=== PATIENT | female | born 1955 | race Two or more races ===

== ENCOUNTER 2016-02-22 15:58 | Emergency (ER) | payer MEDICARE, MEDICAID ==
[2016-02-22] MEDS ORDERED: OXYCODONE-ACETAMINOPHEN 5-325 MG TABLET PO ONE (17:00)
--- NOTE | 2016-02-22 17:04 | ER Document Report ---
ED Medical Screen (RME) - General Chief Complaint: Foot Pain Stated Complaint: LEFT FOOT PAIN Mode of Arrival: Wheelchair Information source: Patient Notes: Patient presents with left foot numbness, pallor, coolness and pain. Patient states symptoms have worsened over the past 3 days. Patient states she's had previous arterial studies that did not show any abnormality in flow. Patient also reports a blister on the left foot that was not there previously. hx: Diabetes, Crohn's TRAVEL OUTSIDE OF THE [place] IN LAST 30 DAYS: No - Related Data Allergies/Adverse Reactions: Sulfa (Sulfonamide Antibiotics) Allergy (Verified 02/08/16 10:02) Past Medical History - Past Medical History Cardiac Medical History: Reports: Hx Hypertension Pulmonary Medical History: Reports: Hx Asthma Neurological Medical History: Reports: Hx Migraine Endocrine Medical History: Reports: Hx Diabetes Mellitus Type 1 GI Medical History: Reports: Hx Crohn's Disease Past Surgical History: Reports: Hx Section, Hx Orthopedic Surgery - R knee; R shoulder, Hx Tonsillectomy - Immunizations Hx Diphtheria, Pertussis, Tetanus Vaccination: Yes Physical Exam - Vital signs Vitals: Temp Pulse Resp BP Pulse Ox 98.4 F 99 16 114/68 92 02/22/16 16:17 02/22/16 16:17 02/22/16 16:17 02/22/16 16:17 02/22/16 16:17 - Extremities Foot: Tender - Pallor, coolness, 1+ dorsalis pedis pulse Course - Vital Signs Vital signs: Temp Pulse Resp BP Pulse Ox 98.4 F 99 16 114/68 92 02/22/16 16:17 02/22/16 16:17 02/22/16 16:17 02/22/16 16:17 02/22/16 16:17
[2016-02-22 18:26] LABS: PROTHROMBIN TIME 11.4 SEC (11.4-15.4)
[2016-02-22 18:27] LABS: PARTIAL THROMBOPLASTIN TIME 21.7 SEC (23.5-35.8)
[2016-02-22 18:42] LABS: ALANINE AMINOTRANSFERASE 43 U/L (9-52); ALBUMIN 3.5 g/dL (3.5-5.0); ALKALINE PHOSPHATASE 106 U/L (38-126); ANION GAP 13 (5-19); ASPARTATE AMINO TRANSFERASE 27 U/L (14-36); BILIRUBIN,TOTAL 0.4 mg/dL (0.2-1.3); BLOOD UREA NITROGEN 22 mg/dL (7-20); CALCIUM 9.2 mg/dL (8.4-10.2); CARBON DIOXIDE 34 mmol/L (22-30); CHLORIDE 90 mmol/L (98-107); CREATININE RESULT 0.68 mg/dL (0.52-1.25); GLUCOSE 89 mg/dL (75-110); POTASSIUM 3.4 mmol/L (3.6-5.0); TOTAL PROTEIN 5.5 g/dL (6.3-8.2)
[2016-02-22 19:26] LABS: HEMATOCRIT 28.7 % (36.0-47.0); HEMOGLOBIN 8.8 g/dL (12.0-15.5); HGB HCT DIFFERENCE -2.3; MEAN CORPUSCULAR HEMOGLOBIN 22.3 pg (27.0-33.4); MEAN CORPUSCULAR HGB CONC 30.6 g/dL (32.0-36.0); RED BLOOD COUNT 3.94 10^6/uL (3.72-5.28); RED CELL DISTRIBUTION WIDTH 17.3 % (11.5-14.0); WHITE BLOOD COUNT 25.4 10^3/uL (4.0-10.5)
[2016-02-22 19:44] LABS: MEAN CORPUSCULAR VOLUME 73 fl (80-97)
[2016-02-22 19:48] LABS: BASOPHILS % (MANUAL) 0 % (0-2); EOSINOPHILS % (MANUAL) 0 % (0-6); LYMPHOCYTES % (MANUAL) 7 % (13-45); TOTAL CELLS COUNTED 100
[2016-02-22 19:49] LABS: ANISOCYTOSIS 1+; HYPOCHROMASIA 2+; MICROCYTOSIS 1+
[2016-02-22 19:50] LABS: PLATELET CLUMPS PRESENT
[2016-02-22] MEDS ORDERED: ASPIRIN 325 MG TABLET PO ONE (19:53)
[2016-02-22] MEDS ORDERED: NORMAL SALINE 1000 ML 1,000 ML IV ONE (20:11)
[2016-02-22] MEDS ORDERED: HEPARIN SOD (PORCINE) 1,000 UNIT/ML 10 ML VIAL IV PRN (20:11)
[2016-02-22] MEDS ORDERED: HEPARIN SODIUM,PORCINE/D5W 250 ML IV PRN (20:11)
[2016-02-22] MEDS ORDERED: HEPARIN SOD (PORCINE) 1,000 UNIT/ML 10 ML VIAL IV ONE (20:11)
[2016-02-22] MEDS ORDERED: HYDROMORPHONE HCL INJ/PF 2 MG/ML AMPULE IV ONE ×2 (20:17→22:36)
[2016-02-22] MEDS ORDERED: ONDANSETRON HCL INJ/PF 4 MG/2 ML SDV IV ONE (20:17)
--- NOTE | 2016-02-22 21:01 | VASCULAR PRELIM REPORT ---
Provider Note Provider Note: Significant arteries compromise, left foot, unusual pattern. normal in leg, occlusion of Posterior Tibial, Dorsalis Pedis and Peroneal arteries with reconstitution through branches. Discussed with Dr Mcdowell at about 2000 hours.
[2016-02-22 23:57] VITALS: BP 132/88
--- NOTE | 2016-02-23 03:04 | ER Document Report ---
ED General - General Chief Complaint: Foot Pain Stated Complaint: LEFT FOOT PAIN Mode of Arrival: Wheelchair TRAVEL OUTSIDE OF THE [place] IN LAST 30 DAYS: No - HPI Patient complains to provider of: left foot pain Notes: Patient coming in for evaluation of left foot pain. Patient been evaluated for left foot pain multiple times. Patient has had 2 arterial duplexes with negative results. Patient has a history of cold disease states she's currently on a flare is treated with steroids and Humira. Patient states that her home medications of Dilaudid and oxycodone are not controlling her pain at this time. Patient states pain is burning. Patient also states increased swelling of her foot pain increases when patient elevates foot and also when she tries to warm her foot up with heating pads at home. Patient does have discoloration of all 5 digits of the left foot including her heel. Patient states that has been ongoing for the last 5 days. Denies any other past medical history - Related Data Allergies/Adverse Reactions: Sulfa (Sulfonamide Antibiotics) Allergy (Verified 02/08/16 10:02) Past Medical History - General Information source: Patient - Social History Smoking Status: Unknown if Ever Smoked Family History: None - Past Medical History Cardiac Medical History: Reports: Hx Hypertension Pulmonary Medical History: Reports: Hx Asthma Neurological Medical History: Reports: Hx Migraine Endocrine Medical History: Reports: Hx Diabetes Mellitus Type 1 GI Medical History: Reports: Hx Crohn's Disease Past Surgical History: Reports: Hx Section, Hx Orthopedic Surgery - R knee; R shoulder, Hx Tonsillectomy - Immunizations Hx Diphtheria, Pertussis, Tetanus Vaccination: Yes Review of Systems - Review of Systems Constitutional: No symptoms reported EENT: No symptoms reported Cardiovascular: No symptoms reported Respiratory: No symptoms reported Gastrointestinal: No symptoms reported Genitourinary: No symptoms reported Female Genitourinary: No symptoms reported Musculoskeletal: Other - Foot pain Skin: No symptoms reported Hematologic/Lymphatic: No symptoms reported Neurological/Psychological: No symptoms reported Physical Exam - Vital signs Vitals: Temp Pulse Resp BP Pulse Ox 98.4 F 99 16 114/68 92 02/22/16 16:17 02/22/16 16:17 02/22/16 16:17 02/22/16 16:17 02/22/16 16:17 Interpretation: Normal - General General appearance: Appears well, Alert - HEENT Head: Normocephalic, Atraumatic Eyes: Normal Pupils: PERRL - Respiratory Respiratory status: No respiratory distress Chest status: Nontender Breath sounds: Normal Chest palpation: Normal - Cardiovascular Rhythm: Regular Heart sounds: Normal auscultation Murmur: No - Abdominal Inspection: Normal Distension: No distension Bowel sounds: Normal Tenderness: Nontender Organomegaly: No organomegaly - Back Back: Normal, Nontender - Extremities General upper extremity: Normal inspection, Nontender, Normal color, Normal ROM , Normal temperature General lower extremity: Other - Patient's right leg unaffected. Patient does have swelling starting at the distal tibia-fibula of the left leg with a blister on the dorsum of the left foot. Patient's left toes are discolored purple with capillary refill greater than 6 seconds. It also blue discoloration of the patient's heel and now the plantar surface of her foot. A dorsalis pedis and posterior tibial are unable to be palpated.. No: Normal inspection, Nontender, Normal color, Normal ROM, Normal temperature, Normal weight bearing - Neurological Neuro grossly intact: Yes Cognition: Normal Orientation: AAOx4 Jose Alberto Coma Scale Eye Opening: Spontaneous Jose Alberto Coma Scale Verbal: Oriented Jose Alberto Coma Scale Motor: Obeys Commands [place] Coma Scale Total: 15 Speech: Normal Motor strength normal: LUE, RUE, LLE, RLE Sensory: Normal - Psychological Associated symptoms: Normal affect, Normal mood - Skin Skin Temperature: Warm Skin Moisture: Dry Skin Color: Normal Course - Re-evaluation Re-evalutation: 02/23/16 03:02 Lab work shows again a leukocytosis more likely from the patient's Crohn's flare and chronic steroid use. Patient also has a chronic anemia. Patient arterial Dopplers shows 3 vessel occlusion of the posterior anterior tibial artery and dorsalis pedis. Patient does have very minimal collateral flow from branches of the anterior and posterior tibia. Patient was started on heparin drip. Discussed with vascular surgery at [facility]. Discuss with Dr. Storey Patient was accepted in transfer. Otherwise patient was given pain control. Patient stable for transfer at time of transfer. - Vital Signs Vital signs: Temp Pulse Resp BP Pulse Ox 98.4 F 99 16 132/88 H 92 02/22/16 16:17 02/22/16 16:17 02/22/16 23:01 02/22/16 23:01 02/22/16 23:01 - Laboratory Result Diagrams: 02/22/16 18:55 02/22/16 17:47 Laboratory results interpreted by me: 02/22/16 02/22/16 02/22/16 17:47 17:47 17:47 WBC Hgb Hct MCV MCH MCHC RDW Plt Count Seg Neuts % (Manual) Lymphocytes % (Manual) Abs Neuts (Manual) Abs Monocytes (Manual) APTT 21.7 L Potassium 3.4 L Chloride 90 L Carbon Dioxide 34 H BUN 22 H Creatine Kinase 268 H Total Protein 5.5 L 02/22/16 18:55 WBC 25.4 H Hgb 8.8 L Hct 28.7 L MCV 73 L D MCH 22.3 L MCHC 30.6 L RDW 17.3 H Plt Count 528 H Seg Neuts % (Manual) 87 H Lymphocytes % (Manual) 7 L Abs Neuts (Manual) 22.1 H Abs Monocytes (Manual) 1.5 H APTT Potassium Chloride Carbon Dioxide BUN Creatine Kinase Total Protein Critical Care Note - Critical Care Note Total time excluding time spent on procedures (mins): 35 Comments: Multiple violations patient with three-vessel occlusion of her left foot Discharge - Discharge Clinical Impression: arterial occlusion left foot, ischemic left foot Condition: Fair Disposition: [facility] Referrals: WAI TIRADO DO [Primary Care Provider] - Follow up as needed
--- NOTE | 2016-02-23 09:08 | EKG REPORT ---
SEVERITY:- ABNORMAL ECG - SINUS RHYTHM CONSIDER LEFT VENTRICULAR HYPERTROPHY BORDERLINE T ABNORMALITIES, INFERIOR LEADS : Confirmed by: Jhon Ledezma 23-Feb-2016 09:07:44
--- NOTE | 2016-02-23 11:52 | XCELERA REPORT ---
[address] [address] Lower Extremity Arterial Evaluation Name: RAI VOGT Age: 60 yrs Gender: Female : 1955 Patient Status: Emergency Patient Location: ER Study Date: 02/22/2016 07:14 PM Procedure: A color flow and duplex scan of the lower extremity arteries was performed on the left with velocity and waveform anaylsis. Reason For Study: cold, pale foot Ordering Physician: COLLEEN MTZ Performed By: Dalton Guerrero Measurements and Calculations Right Left Dist AL PSV 50.9 cm/sec Dist TANK TESTER PSV 63.2 cm/sec Johan Pedis PSV -30.2 cm/sec Right Side Arterial Evaluation Triphasic waveform in the Dorsalis Pedis. VÍCTOR of 1.2. Left Side Arterial Evaluation Normal velocity, waveform and triphasic flow are present, from the Common Femoral artery down to the infrageniculate vessels. Then occlusion in Dorsalis Pedis, Peroneal artery and Posterior Tibial artery. Retrograde monophasic filling noted, distal to obstruction. The ankle-brachial index was not done. Occlusions as noted. Critical Findings As per preliminary. Interpretation Summary No hemodynamically significant lesions in the right lower extremity only, on duplex imaging, at rest. Severe hemodynamically significant lesions in the left lower extremity only, on duplex imaging, at rest. Occlusions as noted in truly remarkable distal pattern. Seems compatible with clinical findings. : COLLEEN MTZ > Frederick Pacheco
== END 2016-02-23 00:25 | disposition short-term general hospital (02) ==
LOC: ER 15:58
DX: I77.1 Stricture of artery (principal); M79.672 Pain in left foot
CPT/HCPCS: 93005; 96376; 99291; 96361; 96375; 96365; 36415; 82550; 85025; 85610; 85730; 80053; 93926 ×2; 93010; J1644; A9270; J1170; J2405; J7030

== ENCOUNTER 2016-04-18 16:37 | Inpatient (IN) | payer MEDICARE, MEDICAID ==
[2016-04-18] MEDS ORDERED: PROMETHAZINE HCL 25 MG TABLET PO ONE (17:01)
--- NOTE | 2016-04-18 17:02 | ER Document Report ---
ED Medical Screen (RME) - General Stated Complaint: NAUSEA Time seen by provider: 16:57 Mode of Arrival: Wheelchair Information source: Patient Notes: 60-year-old female presents to ED for nausea. She had a left BKA 4 weeks ago and has been nauseated ever since. She states that they sent her home from the hospital with no pain medicine after a BKA and she was already nauseated they' ve put her on Zofran on Reglan she is on amlodipine, Zantac she is on OxyContin 20, she states she would like some Phenergan. I have greeted and performed a rapid initial assessment of this patient. A comprehensive ED assessment and evaluation of the patient, analysis of test results and completion of medical decision making process will be conducted by an additional ED providers. TRAVEL OUTSIDE OF THE [place] IN LAST 30 DAYS: No - Related Data Allergies/Adverse Reactions: Sulfa (Sulfonamide Antibiotics) Allergy (Verified 02/08/16 10:02) Past Medical History - Past Medical History Cardiac Medical History: Reports: Hx Hypertension Pulmonary Medical History: Reports: Hx Asthma Neurological Medical History: Reports: Hx Migraine Endocrine Medical History: Reports: Hx Diabetes Mellitus Type 1 GI Medical History: Reports: Hx Crohn's Disease Past Surgical History: Reports: Hx Section, Hx Orthopedic Surgery - R knee; R shoulder, Hx Tonsillectomy - Immunizations Hx Diphtheria, Pertussis, Tetanus Vaccination: Yes
[2016-04-18 17:39] LABS: APPEARANCE,URINE SLIGHTLY-CLOUDY; BILIRUBIN,URINE NEGATIVE (NEGATIVE); GLUCOSE, URINE NEGATIVE (NEGATIVE); KETONES,URINE NEGATIVE (NEGATIVE); LEUKOCYTE ESTERASE,URINE LARGE (NEGATIVE); NITRITE,URINE NEGATIVE (NEGATIVE); PROTEIN,URINE NEGATIVE (NEGATIVE); URINE SPECIFIC GRAVITY 1.019; UROBILINOGEN,URINE NEGATIVE mg/dL (<2.0)
[2016-04-18 17:50] LABS: ALANINE AMINOTRANSFERASE 22 U/L (9-52); ALKALINE PHOSPHATASE 110 U/L (38-126); ANION GAP 7 (5-19); ASPARTATE AMINO TRANSFERASE 16 U/L (14-36); BILIRUBIN,TOTAL 0.4 mg/dL (0.2-1.3); BLOOD UREA NITROGEN 12 mg/dL (7-20); CALCIUM 8.9 mg/dL (8.4-10.2); CARBON DIOXIDE 31 mmol/L (22-30); CHLORIDE 97 mmol/L (98-107); CREATININE RESULT 0.61 mg/dL (0.52-1.25); GLUCOSE 78 mg/dL (75-110); LIPASE 25.8 U/L (23-300); POTASSIUM 3.7 mmol/L (3.6-5.0); SODIUM 134.5 mmol/L (137-145); TOTAL PROTEIN 5.3 g/dL (6.3-8.2)
[2016-04-18 18:55] LABS: HEMATOCRIT 16.5 % (36.0-47.0); HGB HCT DIFFERENCE -1.8; MEAN CORPUSCULAR HEMOGLOBIN 21.4 pg (27.0-33.4); MEAN CORPUSCULAR HGB CONC 29.3 g/dL (32.0-36.0); MEAN CORPUSCULAR VOLUME 73 fl (80-97); RED BLOOD COUNT 2.27 10^6/uL (3.72-5.28); RED CELL DISTRIBUTION WIDTH 20.3 % (11.5-14.0); WHITE BLOOD COUNT 9.3 10^3/uL (4.0-10.5)
[2016-04-18 19:12] LABS: BAND NEUTROPHILS % (MANUAL) 1 % (3-5); BASOPHILS % (MANUAL) 0 % (0-2); EOSINOPHILS % (MANUAL) 3 % (0-6); LYMPHOCYTES % (MANUAL) 28 % (13-45); TOTAL CELLS COUNTED 100
[2016-04-18 19:13] LABS: ANISOCYTOSIS 2+; HYPOCHROMASIA 2+; MICROCYTOSIS 2+; POIKILOCYTOSIS SLIGHT; POLYCHROMASIA SLIGHT; TEAR DROP CELLS SLIGHT
[2016-04-18 19:16] LABS: HEMOGLOBIN 4.9 g/dL (12.0-15.5)
--- NOTE | 2016-04-18 19:20 | ER Document Report ---
ED GI/ - General Chief Complaint: Nausea Stated Complaint: NAUSEA Time seen by provider: 19:15 Mode of Arrival: Wheelchair Information source: Patient TRAVEL OUTSIDE OF THE [place] IN LAST 30 DAYS: No - HPI Patient complains to provider of: Other - pt is s/p L PKA per Dr. Storey at [facility] 4 weeks ago for recurrent blood clots -- also with h/o crohn's diz -- c/o nausea and weakness since surgery. States she needed a blood transfusion post- op. - Related Data Allergies/Adverse Reactions: Sulfa (Sulfonamide Antibiotics) Allergy (Verified 04/18/16 17:03) Past Medical History - General Information source: Patient - Social History Smoking Status: Former Smoker Chew tobacco use (# tins/day): No Frequency of alcohol use: None Drug Abuse: None Family History: None Patient has suicidal ideation: No Patient has homicidal ideation: No - Past Medical History Cardiac Medical History: Reports: Hx Hypertension Pulmonary Medical History: Reports: Hx Asthma Neurological Medical History: Reports: Hx Migraine Endocrine Medical History: Reports: Hx Diabetes Mellitus Type 1 Renal/ Medical History: Denies: Hx Peritoneal Dialysis GI Medical History: Reports: Hx Crohn's Disease Past Surgical History: Reports: Hx Section, Hx Orthopedic Surgery - R knee; R shoulder, Hx Tonsillectomy - Immunizations Hx Diphtheria, Pertussis, Tetanus Vaccination: Yes Review of Systems - Review of Systems Constitutional: Weakness EENT: No symptoms reported Cardiovascular: No symptoms reported Respiratory: No symptoms reported Gastrointestinal: See HPI, Nausea -: Yes All other systems reviewed and negative Physical Exam - Vital signs Vitals: Temp Pulse Resp BP Pulse Ox 98.1 F 92 16 102/66 95 04/18/16 16:51 04/18/16 16:51 04/18/16 16:51 04/18/16 16:51 04/18/16 16:51 - General General appearance: Appears well, Alert In distress: None - looks pale - HEENT Mouth/Lips: Normal Mucous membranes: Normal Pharynx: Normal Neck: Normal - Respiratory Respiratory status: No respiratory distress Breath sounds: Normal - Cardiovascular Rhythm: Regular Heart sounds: Normal auscultation - Abdominal Inspection: Normal Distension: No distension Bowel sounds: Normal Tenderness: Nontender Organomegaly: No organomegaly - Rectal Tenderness: No Stool: See lab result Hemorrhoids: None - Extremities General lower extremity: Other - L BKA Course - Re-evaluation Re-evalutation: 04/18/16 19:39 pt's exam unchanged from prior -- will call hospitalist for admission for transfusion - Vital Signs Vital signs: Temp Pulse Resp BP Pulse Ox 98.1 F 92 16 102/66 95 04/18/16 16:51 04/18/16 16:51 04/18/16 16:51 04/18/16 16:51 04/18/16 16:51 - Laboratory Result Diagrams: 04/18/16 18:25 04/18/16 17:10 Laboratory results interpreted by me: 04/18/16 04/18/16 04/18/16 17:10 17:10 18:25 RBC 2.27 L Hgb 4.9 L* Hct 16.5 L MCV 73 L MCH 21.4 L MCHC 29.3 L RDW 20.3 H Band Neutrophils % 1 L Sodium 134.5 L Chloride 97 L Carbon Dioxide 31 H Total Protein 5.3 L Albumin 3.0 L Ur Leukocyte Esterase LARGE H - Consults jesse Ignacio Time consulted: 19:40 Consulted provider: will come to ER Critical Care Note - Critical Care Note Total time excluding time spent on procedures (mins): 30 Discharge - Discharge Clinical Impression: Severe anemia Condition: Stable Disposition: ADMITTED INPATIENT Admitting Provider: Hospitalist Unit Admitted: Telemetry
[2016-04-18] MEDS ORDERED: NORMAL SALINE 250 ML IV PRN ×2 (19:37)
[2016-04-18 20:52] LABS: PROTHROMBIN TIME 19.2 SEC (11.4-15.4)
[2016-04-18 20:53] LABS: PARTIAL THROMBOPLASTIN TIME 33.5 SEC (23.5-35.8)
[2016-04-18] MEDS ORDERED: CEFTRIAXONE INJ 1000 MG VIAL IV SCH (23:15)
[2016-04-18] MEDS ORDERED: PROMETHAZINE HCL INJ 25 MG/1 ML VIAL IV PRN (23:51)
[2016-04-19] MEDS ORDERED: PROMETHAZINE HCL INJ 25 MG/1 ML VIAL ONE ×2 (00:09→06:17)
[2016-04-19] MEDS: CEFTRIAXONE 1 GM/D5W RTU 50 ML IV SCH (01:54)
[2016-04-19] MEDS ORDERED: INSULIN LISPRO 100 UNIT/ML 3 ML VIAL SUBCUT PRN (03:10)
[2016-04-19] MEDS ORDERED: DEXTROSE 40% GEL 15 GM TUBE PO PRN ×2 (03:10)
[2016-04-19] MEDS ORDERED: DEXTROSE 50%-WATER 25 GM/50 ML DISP.SYRIN IV PRN ×2 (03:10)
[2016-04-19] MEDS ORDERED: GLUCAGON,HUMAN RECOMB 1 MG INJ IM PRN (03:10)
[2016-04-19] MEDS ORDERED: MAGNESIUM HYDROXIDE SUSP 30 ML UDCUP PO PRN (03:11)
[2016-04-19] MEDS ORDERED: IPRATROPIUM/ALBUTEROL 0.5-2.5 MG/3 ML AMPUL NEB PRN (03:11)
[2016-04-19] MEDS ORDERED: PROMETHAZINE HCL INJ 25 MG/1 ML VIAL IV PRN ×2 (03:17→10:58)
--- NOTE | 2016-04-19 03:33 | PDOC H&P ---
History of Present Illness Admission Date/PCP: 04/18/16 19:49 WAI TIRADO, GI Dr. Yen Gen surgery/Ortho Dr. Storey, [facility] Patient complains of: Nausea and weakness History of Present Illness: RAI VOGT is a 60 year old female, status post left below-knee amputation by Dr. 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 She states that since surgery, she's had persistent nausea but only rare vomiting. Generalized weakness, which is slowly progressive. She's had positive chills but no fever. No dysuria. Chronic loose stools due to her Crohn's. Last colonoscopy was approximately a year ago. No chest pain. Chronic anemia. Was transfused 3 units of blood postoperatively after her recent below-knee amputation. 2 units of packed cells ordered by emergency room physician have been transfused. States a clotting disorder is "all quite new." No family history of same. Still having some phantom limb pain. Patient has been discussed with emergency room physician who evaluated the patient. . Laboratory results are listed in everbill and are reviewed. Social history/personal habits: . Has children. Child is currently living with her. 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 No tobacco use since last December. No alcohol or illicit drug use. Allergies/adverse reactions allergies reviewed. Home medications are reviewed by discussion with patient and are to be reconciled by nursing staff in [facility]. Home medications initially autopopulated into [facility] may not accurately reflect patient's true medications, dosages, and/or frequencies. REVIEW OF SYSTEMS: Constitutional: See history and present illness. Eyes: Wears glasses. ENT: Chronic mild dysphagia, followed on a regular basis by gastroenterology. No hearing problems or complaints. Pulmonary: No current complaints. Cardiovascular: No current complaints, including chest pain. Gastrointestinal: See history and present illness. Skin: Intermittent problems with eczema. Hematologic: Easy bruising. Neurologic: No current complaints, including numbness or tingling. Musculoskeletal: Joint pain from arthritis in her hands. Phantom limb pain since her amputation. Psychiatric: Mild Anxiety depression; denies suicidal or homicidal ideation. Endocrine: No current complaints, including polyuria. Genitourinary: No current complaints, including dysuria. PHYSICAL EXAMINATION: 53.1 kg. Height is not recorded on the chart. Blood pressure 99/63. 98 and regular. 93% saturation on room air. Respirations are 12 and unlabored. Temperature 99.0. Thin chronically ill appearing slightly disheveled female who appears a bit older than her stated age. Pleasant awake alert and cooperative. Quite talkative. Somewhat anxious, although no adelia agitation. Emergency room skilled nursing facilities professional Desmond is present. Skin is warm and dry. No grossly obvious evidence of rash in areas of skin examined. No subcutaneous nodules palpated. ENT: Hearing grossly normal to normal conversation. Tongue midline on protrusion pink and slightly moist. Eyes: No scleral icterus. Pupils equal and reactive to light at 4 mm. [place] conjunctivae. Neck is supple and nontender to gentle active range of motion and palpation. Midline trachea. No palpable thyroid nodule mass enlargement or tenderness. Lymphatic: No palpable cervical or clavicular nodes. Neck and lymphatic exams limited by patient body habitus. Psychiatric: Reasonable insight into acute and chronic medical issues. Oriented to time location and why here. Lungs: Auscultation reveals clear and equal breath sounds bilaterally. No use of accessory respiratory muscles. Cardiovascular: Heart regular rate and rhythm, without gallop murmur or rub. No carotid or abdominal aortic bruits. No right ankle or pedal edema. Faintly palpable dorsalis pedis pulse. Abdomen: soft, , slightly distended nontender with positive bowel sounds. Unable to adequately evaluate abdomen for masses or organomegaly due to distention. Extremities: Right foot warm and dry. No right calf tenderness to compression. No grossly obvious visual evidence of right calf swelling. Gentle manipulation of right lower extremity fails to reveal any obvious evidence of injury or instability to knee hip or ankle. BKA incision is healing nicely, without evidence of infection. Neurologic: [Moves upper extremities grossly normally. Right patellar reflex absent. Absent Babinski. Light touch is intact at right foot. Dorsiflexion and plantarflexion of foot 5 / 5. Past Medical History Cardiac Medical History: Reports: Hypertension Denies: Congestive Heart Failure, Hyperlipidema, Pulmonary Embolism Pulmonary Medical History: Reports: Asthma Denies: Chronic Obstructive Pulmonary Disease (COPD) Neurological Medical History: Reports: Migraine, Other - TIA Denies: Hemorrhagic CVA, Ischemic CVA Endocrine Medical History: Reports: Diabetes Mellitus Type 1 Denies: Diabetes Mellitus Type 2, Hyperthyroidism, Hypothyroidism GI Medical History: Reports: Crohn's Disease, Peptic Ulcer Disease - DISTANT HISTORY Denies: Cirrhosis, Hepatitis Psychiatric Medical History: Reports: Depression, General Anxiety Disorder, Tobacco Dependency Denies: Alcohol Dependency, Substance Abuse Infectious Medical History: Denies: Hepatitis B, Hepatitis C Past Surgical History Past Surgical History: Reports: Section, Orthopedic Surgery - R knee; R shoulder, Tonsillectomy Social History Information Source: Patient, Emergency Med Personnel, [facility] Records Lives with: Family Smoking Status: Former Smoker Frequency of Alcohol Use: None Drugs: None - Advance Directive Resuscitation Status: Full Code Surrogate healthcare decision maker:: Children Family History Family History: None Parental Family History Reviewed: Yes Children Family History Reviewed: Yes Sibling(s) Family History Reviewed.: Yes Medication/Allergy Allergies/Adverse Reactions: Sulfa (Sulfonamide Antibiotics) Allergy (Verified 04/18/16 17:03) Physical Exam Vital Signs: Temp Pulse Resp BP Pulse Ox 99.0 F 92 18 106/65 98 04/19/16 00:25 04/18/16 16:51 04/19/16 02:31 04/19/16 02:31 04/19/16 02:31 Intake & Output 04/18/16 04/19/16 04/20/16 00:59 00:59 00:59 Intake Total 300 300 Balance 300 300 Weight 53.07 kg Results Laboratory Results: 04/18/16 04/18/16 04/18/16 20:20 20:20 20:20 Retic Count (auto) Absolute Retic Magnesium 1.8 Iron 10.1 L TIBC 290 % Saturation 3 Ferritin 12.70 Vitamin B12 > 1000.0 H Folate 6.30 TSH 2.03 04/18/16 20:50 Retic Count (auto) 6.03 H Absolute Retic 0.135 H Magnesium Iron TIBC % Saturation Ferritin Vitamin B12 Folate TSH Assessment & Plan - Diagnosis (1) Anticoagulated Is this a current diagnosis for this admission?: YesPlan: Due to heme positive stool and severe anemia, will hold Xarelto at this point in time. Hematology consult. (2) Clotting disorder Is this a current diagnosis for this admission?: Yes (3) Hx of BKA Qualifiers: Laterality: left Qualified Code(s): Z89.512 - Acquired absence of left leg below knee Is this a current diagnosis for this admission?: Yes (4) Severe anemia Is this a current diagnosis for this admission?: YesPlan: Basic anemia screening labs have been ordered. 2 units transfused so far. Further transfusion on a when necessary basis. I have strongly encouraged patient not to get out of bed without notifying staff , to avoid a fall with injury. Knee high SCDs for DVT prophylaxis, right lower extremity only. With heme positive stool, and patient already on Xarelto, will forego Lovenox or heparin at this point in time. Impression and plans were discussed with patient, who concurs. Time spent in evaluation and management of patient: 61 minutes. (5) UTI (urinary tract infection) Qualifiers: Urinary tract infection type: site unspecified Is this a current diagnosis for this admission?: YesPlan: Blood and urine cultures. Rocephin. (6) Crohn disease Qualifiers: Gastrointestinal tract location: unspecified location Digestive disease complication type: without complication Qualified Code(s): K50.90 - Crohn's disease, unspecified, without complications Is this a current diagnosis for this admission?: YesPlan: Outpatient follow-up. (7) HTN (hypertension) Qualifiers: Hypertension type: essential hypertension Qualified Code(s): I10 - Essential (primary) hypertension Plan: Resume home medications as appropriate once these have been reviewed. States she takes Norvasc only on a when necessary basis. (8) Diabetes mellitus type 1 Qualifiers: Diabetes mellitus complication status: without complication Qualified Code(s): E10.9 - Type 1 diabetes mellitus without complications Is this a current diagnosis for this admission?: YesPlan: Diabetic cardiac diet. Accu-Cheks with appropriate sliding scale coverage. States she uses Lantus only on a when necessary basis.
[2016-04-19] MEDS: OXYCODONE HCL IR 5 MG TABLET PO PRN (04:50)
[2016-04-19] MEDS ORDERED: ALPRAZOLAM 0.25 MG TABLET PO PRN (08:09)
--- NOTE | 2016-04-19 08:24 | PDOC CONSULTATION ---
Consultation Consult Date: 04/19/16 Attending physician:: JUDE GILMAN Consult reason:: Anemia History of Present Illness Admission Date/PCP: 04/19/16 03:12 WAI TIRADO DO Patient complains of: Fatigue, nausea, anemia History of Present Illness: 60-year-old female with known history of Crohn's disease, also recurrence iron deficiency anemia. In the past she has required IV iron. 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 Upon admission she had a very low hemoglobin in the 3 range, MCV was in the 70s, ferritin was only 12, stool culture was also positive. Reticulocyte count was elevated. She received 2 units packed red blood cells, CBC is pending now. Her last colonoscopy was over a year ago, endoscopy was also done at some point in time but she doesn't remember exactly when. Past Medical History Cardiac Medical History: Reports: Hypertension Pulmonary Medical History: Reports: Asthma Neurological Medical History: Reports: Migraine Endocrine Medical History: Reports: Diabetes Mellitus Type 1 GI Medical History: Reports: Crohn's Disease Hematology: Reports: Anemia Past Surgical History Past Surgical History: Reports: Section, Orthopedic Surgery - R knee; R shoulder, Tonsillectomy Social History Lives with: Family Smoking Status: Unknown if Ever Smoked Frequency of Alcohol Use: None Hx Recreational Drug Use: No Drugs: None Hx Prescription Drug Abuse: No - Advance Directive Resuscitation Status: Full Code Family History Family History: None Parental Family History Reviewed: Yes Children Family History Reviewed: Yes Sibling(s) Family History Reviewed.: Yes Medication/Allergy Home Medications: Alprazolam [Alprazolam Odt] 0.5 mg PO BID PRN 04/18/16 Amlodipine Besylate 5 mg PO BID 04/18/16 Metoclopramide HCl 10 mg PO QID PRN 04/18/16 Ondansetron HCl [Zofran] 4 mg PO TID PRN 04/18/16 Oxycodone HCl [Oxycontin] 20 mg PO TID 04/18/16 Ranitidine HCl 150 mg PO DAILY 04/18/16 Rivaroxaban [Xarelto 15 mg Tablet] 15 mg PO BID 04/18/16 Allergies/Adverse Reactions: Sulfa (Sulfonamide Antibiotics) Allergy (Verified 02/26/17 17:03) Review of Systems Constitutional: PRESENT: anorexia, weakness Cardiovascular: PRESENT: dyspnea on exertion Gastrointestinal: PRESENT: nausea Musculoskeletal: ABSENT: joint swelling Neurological: ABSENT: abnormal gait, abnormal speech, confusion, dizziness, focal weakness, syncope Physical Exam Vital Signs: Temp Pulse Resp BP Pulse Ox 99.5 F 97 14 99/55 L 94 04/19/16 07:31 04/19/16 05:24 04/19/16 06:31 04/19/16 06:31 04/19/16 06:31 Intake & Output 04/18/16 04/19/16 04/20/16 06:59 06:59 06:59 Weight 53.07 kg General appearance: PRESENT: no acute distress, well-developed, well-nourished Head exam: PRESENT: atraumatic, normocephalic Eye exam: PRESENT: conjunctiva pink, EOMI, PERRLA. ABSENT: scleral icterus Ear exam: PRESENT: normal external ear exam Mouth exam: PRESENT: moist, tongue midline Neck exam: ABSENT: carotid bruit, JVD, lymphadenopathy, thyromegaly Respiratory exam: PRESENT: clear to auscultation jenaro. ABSENT: rales, rhonchi, wheezes Cardiovascular exam: PRESENT: RRR. ABSENT: diastolic murmur, rubs, systolic murmur Pulses: PRESENT: normal dorsalis pedis pul Vascular exam: PRESENT: normal capillary refill GI/Abdominal exam: PRESENT: normal bowel sounds, soft. ABSENT: distended, guarding, mass, organolmegaly, rebound, tenderness Rectal exam: PRESENT: deferred Extremities exam: PRESENT: full ROM. ABSENT: calf tenderness, clubbing, pedal edema Neurological exam: PRESENT: alert, awake, oriented to person, oriented to place , oriented to time, oriented to situation, CN II-XII grossly intact. ABSENT: motor sensory deficit Psychiatric exam: PRESENT: appropriate affect, normal mood. ABSENT: homicidal ideation, suicidal ideation Skin exam: PRESENT: dry, intact, warm. ABSENT: cyanosis, rash Assessment & Plan - Diagnosis (1) Severe anemia Is this a current diagnosis for this admission?: YesPlan: Iron deficiency anemia, concern of blood loss. Colonic loss would be the most likely cause, Hemoccult is positive, need to have gastroenterology evaluation, we'll consult gastroenterology for EGD and colonoscopy. We'll give IV iron today. Follow-up hemoglobin. - Time Time Spent: 50 to 70 Minutes Critical Time spent with patient: 15-24 minutes - Inpatient Certification Based on my medical assessment, after consideration of the patient's comorbidities, presenting symptoms, or acuity I expect that the services needed warrant INPATIENT care.: Yes I certify that my determination is in accordance with my understanding of Medicare's requirements for reasonable and necessary INPATIENT services [42 CFR 412.3e].: Yes Medical Necessity: Need For Continuous Telemetry Monitoring, Need for Surgery, Risk of Complication if Not Cared For in Hospital
[2016-04-19] MEDS ORDERED: PROCHLORPERAZINE EDISYLATE INJ 10 MG/2 ML VIAL IM PRN (08:42)
[2016-04-19] MEDS ORDERED: PROCHLORPERAZINE EDISYLATE INJ 10 MG/2 ML VIAL IV PRN (09:00)
[2016-04-19] MEDS: ACETAMINOPHEN 325 MG TABLET PO PRN ×2 (09:05→20:27)
[2016-04-19 09:14] LABS: ANION GAP 7 (5-19); BLOOD UREA NITROGEN 16 mg/dL (7-20); CARBON DIOXIDE 26 mmol/L (22-30); CHLORIDE 102 mmol/L (98-107); CREATININE RESULT 0.66 mg/dL (0.52-1.25); GLUCOSE 79 mg/dL (75-110); POTASSIUM 3.4 mmol/L (3.6-5.0); SODIUM 134.7 mmol/L (137-145)
[2016-04-19 09:21] LABS: ABSOLUTE BASOPHILS # (AUTO) 0.1 10^3/uL (0.0-0.2); ABSOLUTE EOSINOPHILS # (AUTO) 0.1 10^3/uL (0.0-0.6); ABSOLUTE MONOCYTES (AUTO) 0.9 10^3/uL (0.1-1.4); ABSOLUTE NEUT (AUTO) 5.5 10^3/uL (1.7-8.2); BASOPHILS % (AUTO) 0.8 % (0-2); EOSINOPHILS % (AUTO) 1.6 % (0-6); HEMATOCRIT 22.2 % (36.0-47.0); HGB HCT DIFFERENCE -0.9; LYMPHOCYTES % (AUTO) 23.2 % (13-45); MEAN CORPUSCULAR HEMOGLOBIN 24.5 pg (27.0-33.4); MEAN CORPUSCULAR HGB CONC 32.3 g/dL (32.0-36.0); MEAN CORPUSCULAR VOLUME 76 fl (80-97); RED BLOOD COUNT 2.91 10^6/uL (3.72-5.28); RED CELL DISTRIBUTION WIDTH 22.1 % (11.5-14.0); SEGMENTED NEUTROPHILS % (AUTO) 64.4 % (42-78); WHITE BLOOD COUNT 8.5 10^3/uL (4.0-10.5)
[2016-04-19 09:26] LABS: HEMOGLOBIN 7.1 g/dL (12.0-15.5)
[2016-04-19] MEDS ORDERED: NORMAL SALINE 250 ML IV PRN ×2 (09:48)
[2016-04-19] MEDS ORDERED: FUROSEMIDE INJ/PF 20 MG/2 ML SDV IV PRN (09:48)
[2016-04-19] MEDS ORDERED: FERUMOXYTOL (NON-ESRD) 510 MG/NS 100 ML IV ONE ×2 (10:00)
--- NOTE | 2016-04-19 10:49 | PDOC PROGRESS REPORT ---
Subjective Progress Note for:: 04/19/16 Subjective:: This 60-year-old woman has a long history of Crohn's disease and a more recent history of a clotting disorder. She is status post left below the knee amputation last year and was started on Xarelto after that. She is on Humira and prednisone for the Crohn's disease. For the last 3 weeks she has had nausea. This morning that is her chief complaint. She denies abdominal pain apart from her chronic pain related to Crohn's disease. She also has a chronic degree of loose stools. Her hemoglobin was only 4.9 on admission with an MCV of 73. So far she has received 2 units of packed red blood cells and the hemoglobin is up to 7.1. She has been seen by hematology/oncology. IV iron was prescribed and is currently being administered. GI consultation has been requested. Physical Exam Vital Signs: Temp Pulse Resp BP Pulse Ox 99.5 F 97 14 99/55 L 94 04/19/16 07:31 04/19/16 05:24 04/19/16 06:31 04/19/16 06:31 04/19/16 06:31 Intake & Output 04/18/16 04/19/16 04/20/16 06:59 06:59 06:59 Weight 53.07 kg 53.07 kg General appearance: PRESENT: no acute distress, cooperative, well-developed, well-nourished Head exam: PRESENT: atraumatic, normocephalic Eye exam: PRESENT: conjunctiva pink, EOMI, PERRLA. ABSENT: scleral icterus Ear exam: PRESENT: normal external ear exam Mouth exam: PRESENT: moist, tongue midline Neck exam: ABSENT: carotid bruit, JVD, lymphadenopathy, thyromegaly Respiratory exam: PRESENT: clear to auscultation jenaro. ABSENT: rales, rhonchi, wheezes Cardiovascular exam: PRESENT: RRR. ABSENT: diastolic murmur, rubs, systolic murmur Pulses: PRESENT: normal dorsalis pedis pul Vascular exam: PRESENT: normal capillary refill GI/Abdominal exam: PRESENT: normal bowel sounds, soft, other - minimal tenderness in the lower abdomen, and mild epigastric tenderness. ABSENT: distended, guarding, mass, organolmegaly, rebound Rectal exam: PRESENT: deferred Extremities exam: PRESENT: full ROM. ABSENT: calf tenderness, clubbing, pedal edema Neurological exam: PRESENT: alert, awake, oriented to person, oriented to place , oriented to time, oriented to situation, CN II-XII grossly intact. ABSENT: motor sensory deficit Psychiatric exam: PRESENT: appropriate affect, normal mood. ABSENT: homicidal ideation, suicidal ideation Skin exam: PRESENT: dry, intact, warm. ABSENT: cyanosis, rash Results Laboratory Results: 04/19/16 08:51 04/19/16 08:51 04/19/16 04/19/16 08:51 08:51 WBC 8.5 RBC 2.91 L Hgb 7.1 L D Hct 22.2 L MCV 76 L MCH 24.5 L MCHC 32.3 RDW 22.1 H Plt Count 377 Seg Neutrophils % 64.4 Lymphocytes % 23.2 Monocytes % 10.0 Eosinophils % 1.6 Basophils % 0.8 Absolute Neutrophils 5.5 Absolute Lymphocytes 2.0 Absolute Monocytes 0.9 Absolute Eosinophils 0.1 Absolute Basophils 0.1 Sodium 134.7 L Potassium 3.4 L Chloride 102 Carbon Dioxide 26 Anion Gap 7 BUN 16 Creatinine 0.66 Est GFR ( Amer) > 60 Est GFR (Non-Af Amer) > 60 Glucose 79 Calcium 8.0 L Assessment & Plan - Diagnosis (1) Severe anemia Is this a current diagnosis for this admission?: YesPlan: Microcytic. Fecal occult blood positive. Currently receiving IV iron per hematology. Has received 2 units of packed red blood cells and will receive 1 more. Will continue to monitor hemoglobins. Gastroenterology has been consulted. (2) History of ulcer disease Is this a current diagnosis for this admission?: YesPlan: She has a distant history of either a gastric or duodenal ulcer by her account. (3) Crohn disease Qualifiers: Gastrointestinal tract location: unspecified location Digestive disease complication type: without complication Qualified Code(s): K50.90 - Crohn's disease, unspecified, without complications Is this a current diagnosis for this admission?: YesPlan: On Humira and prednisone. She has chronic symptoms that are not in flare. (4) Hx of BKA Qualifiers: Laterality: left Qualified Code(s): Z89.512 - Acquired absence of left leg below knee Is this a current diagnosis for this admission?: YesPlan: She is about 1 month status post left below the knee amputation. She was told she had a clotting disorder at that time and was started on Xarelto. With the current to severe blood loss anemia, the anticoagulant is on hold. (5) Clotting disorder Is this a current diagnosis for this admission?: YesPlan: To my knowledge, this clotting disorder has not been definitively identified. Hematology/oncology is now following. (6) UTI (urinary tract infection) Qualifiers: Urinary tract infection type: site unspecified Is this a current diagnosis for this admission?: YesPlan: Positive UA. Awaiting C&S. On empiric Rocephin. (7) HTN (hypertension) Qualifiers: Hypertension type: essential hypertension Qualified Code(s): I10 - Essential (primary) hypertension - Time Time Spent with patient: 25-34 minutes
[2016-04-19] MEDS ORDERED: PANTOPRAZOLE SODIUM 40 MG VIAL IV ONE (11:15)
[2016-04-19 12:51] LABS: PATH REVIEW PATHOLOGIST REVIEWED
[2016-04-19 17:13] LABS: ABSOLUTE BASOPHILS # (AUTO) 0.1 10^3/uL (0.0-0.2); ABSOLUTE EOSINOPHILS # (AUTO) 0.2 10^3/uL (0.0-0.6); ABSOLUTE LYMPHOCYTES (AUTO) 2.5 10^3/uL (0.5-4.7); ABSOLUTE MONOCYTES (AUTO) 0.8 10^3/uL (0.1-1.4); ABSOLUTE NEUT (AUTO) 5.8 10^3/uL (1.7-8.2); BASOPHILS % (AUTO) 0.7 % (0-2); EOSINOPHILS % (AUTO) 1.7 % (0-6); HEMATOCRIT 27.6 % (36.0-47.0); HEMOGLOBIN 8.8 g/dL (12.0-15.5); HGB HCT DIFFERENCE -1.2; LYMPHOCYTES % (AUTO) 27.2 % (13-45); MEAN CORPUSCULAR HEMOGLOBIN 25.2 pg (27.0-33.4); MEAN CORPUSCULAR HGB CONC 31.9 g/dL (32.0-36.0); MEAN CORPUSCULAR VOLUME 79 fl (80-97); MONOCYTES % (AUTO) 8.7 % (3-13); RED CELL DISTRIBUTION WIDTH 21.3 % (11.5-14.0); SEGMENTED NEUTROPHILS % (AUTO) 61.7 % (42-78); WHITE BLOOD COUNT 9.3 10^3/uL (4.0-10.5)
[2016-04-19] MEDS ORDERED: OXYCODONE HCL SR 10 MG TABLET PO ONE (19:00)
[2016-04-19] MEDS: PROMETHAZINE HCL INJ 25 MG/1 ML VIAL IV PRN (19:32)
[2016-04-19] MEDS ORDERED: BISACODYL 5 MG TABEC PO ONE (20:00)
[2016-04-19] MEDS: PANTOPRAZOLE SODIUM 40 MG VIAL IV SCH (21:49)
[2016-04-19] MEDS: OXYCODONE HCL SR 10 MG TABLET PO SCH (21:49)
[2016-04-20] MEDS: PROMETHAZINE HCL INJ 25 MG/1 ML VIAL IV PRN ×2 (00:16→05:01)
[2016-04-20] MEDS: OXYCODONE HCL SR 10 MG TABLET PO SCH ×3 (05:03→21:05)
[2016-04-20 05:10] LABS: ABSOLUTE BASOPHILS # (AUTO) 0.1 10^3/uL (0.0-0.2); ABSOLUTE EOSINOPHILS # (AUTO) 0.2 10^3/uL (0.0-0.6); ABSOLUTE LYMPHOCYTES (AUTO) 2.7 10^3/uL (0.5-4.7); ABSOLUTE NEUT (AUTO) 7.4 10^3/uL (1.7-8.2); BASOPHILS % (AUTO) 0.6 % (0-2); EOSINOPHILS % (AUTO) 1.7 % (0-6); HEMATOCRIT 28.4 % (36.0-47.0); HGB HCT DIFFERENCE -1.4; LYMPHOCYTES % (AUTO) 24.2 % (13-45); MEAN CORPUSCULAR HEMOGLOBIN 24.9 pg (27.0-33.4); MEAN CORPUSCULAR HGB CONC 31.6 g/dL (32.0-36.0); MEAN CORPUSCULAR VOLUME 79 fl (80-97); MONOCYTES % (AUTO) 8.4 % (3-13); RED BLOOD COUNT 3.61 10^6/uL (3.72-5.28); RED CELL DISTRIBUTION WIDTH 21.1 % (11.5-14.0); SEGMENTED NEUTROPHILS % (AUTO) 65.1 % (42-78); WHITE BLOOD COUNT 11.3 10^3/uL (4.0-10.5)
[2016-04-20 05:22] LABS: ANION GAP 7 (5-19); BLOOD UREA NITROGEN 12 mg/dL (7-20); CALCIUM 8.7 mg/dL (8.4-10.2); CARBON DIOXIDE 24 mmol/L (22-30); CHLORIDE 107 mmol/L (98-107); CREATININE RESULT 0.52 mg/dL (0.52-1.25); GLUCOSE 83 mg/dL (75-110); POTASSIUM 3.8 mmol/L (3.6-5.0); SODIUM 137.5 mmol/L (137-145)
[2016-04-20] MEDS ORDERED: PEG 3350/NA SULF,BICARB,CL/KCL 4000 ML PO ONE (07:00)
[2016-04-20] MEDS ORDERED: ONDANSETRON HCL INJ/PF 4 MG/2 ML SDV ONE (08:57)
[2016-04-20] MEDS: CEFTRIAXONE 1 GM/D5W RTU 50 ML IV SCH (09:30)
[2016-04-20] MEDS: PANTOPRAZOLE SODIUM 40 MG VIAL IV SCH ×2 (09:30→21:06)
[2016-04-20] MEDS ORDERED: PROMETHAZINE HCL INJ 50 MG/1 ML VIAL IM PRN (11:03)
--- NOTE | 2016-04-20 11:47 | PDOC PROGRESS REPORT ---
Subjective Progress Note for:: 04/20/16 Subjective:: Still w/ severe nausea and has not started prep for scope, tells me that golytely has worsened crohns exacerbation in past, has used mag citrate/ bisacodyl successfully in past Physical Exam Vital Signs: Temp Pulse Resp BP Pulse Ox 98.6 F 79 16 115/72 93 04/20/16 08:00 04/20/16 08:37 04/20/16 08:37 04/20/16 08:00 04/20/16 08:37 Intake & Output 04/19/16 04/20/16 04/21/16 06:59 06:59 06:59 Intake Total 507 Balance 507 Weight 53.07 kg 53.07 kg General appearance: PRESENT: no acute distress, well-developed, well-nourished Head exam: PRESENT: atraumatic, normocephalic Eye exam: PRESENT: conjunctiva pink, EOMI, PERRLA. ABSENT: scleral icterus Ear exam: PRESENT: normal external ear exam Mouth exam: PRESENT: moist, tongue midline Neck exam: ABSENT: carotid bruit, JVD, lymphadenopathy, thyromegaly Respiratory exam: PRESENT: clear to auscultation jenaro. ABSENT: rales, rhonchi, wheezes Cardiovascular exam: PRESENT: RRR. ABSENT: diastolic murmur, rubs, systolic murmur Pulses: PRESENT: normal dorsalis pedis pul Vascular exam: PRESENT: normal capillary refill GI/Abdominal exam: PRESENT: normal bowel sounds, soft. ABSENT: distended, guarding, mass, organolmegaly, rebound, tenderness Rectal exam: PRESENT: deferred Extremities exam: PRESENT: full ROM. ABSENT: calf tenderness, clubbing, pedal edema Neurological exam: PRESENT: alert, awake, oriented to person, oriented to place , oriented to time, oriented to situation, CN II-XII grossly intact. ABSENT: motor sensory deficit Psychiatric exam: PRESENT: appropriate affect, normal mood. ABSENT: homicidal ideation, suicidal ideation Skin exam: PRESENT: dry, intact, warm. ABSENT: cyanosis, rash Results Laboratory Results: 04/20/16 04:44 04/20/16 04:44 04/19/16 04/20/16 04/20/16 16:37 04:44 04:44 WBC 9.3 11.3 H RBC 3.50 L 3.61 L Hgb 8.8 L 9.0 L Hct 27.6 L 28.4 L MCV 79 L 79 L MCH 25.2 L 24.9 L MCHC 31.9 L 31.6 L RDW 21.3 H 21.1 H Plt Count 382 354 Seg Neutrophils % 61.7 65.1 Lymphocytes % 27.2 24.2 Monocytes % 8.7 8.4 Eosinophils % 1.7 1.7 Basophils % 0.7 0.6 Absolute Neutrophils 5.8 7.4 Absolute Lymphocytes 2.5 2.7 Absolute Monocytes 0.8 1.0 Absolute Eosinophils 0.2 0.2 Absolute Basophils 0.1 0.1 Sodium 137.5 Potassium 3.8 Chloride 107 Carbon Dioxide 24 Anion Gap 7 BUN 12 Creatinine 0.52 Est GFR ( Amer) > 60 Est GFR (Non-Af Amer) > 60 Glucose 83 Calcium 8.7 Assessment & Plan - Diagnosis (1) Severe anemia Is this a current diagnosis for this admission?: YesPlan: Likely GI blood losses, IV iron and tx given, hb better, monitor, scopes today hopefully. - Time Time Spent with patient: 15-24 minutes Critical Time spent with patient: 15-24 minutes Anticipated discharge: Home - Inpatient Certification Based on my medical assessment, after consideration of the patient's comorbidities, presenting symptoms, or acuity I expect that the services needed warrant INPATIENT care.: Yes I certify that my determination is in accordance with my understanding of Medicare's requirements for reasonable and necessary INPATIENT services [42 CFR 412.3e].: Yes Medical Necessity: Need for Surgery
[2016-04-20] MEDS ORDERED: BUTALB/ACETAMINOPHEN/CAFFEINE 1 TAB EACH PO PRN (14:22)
[2016-04-20] MEDS ORDERED: NALOXONE HCL INJ/PF 0.4 MG/1 ML SDV ONE (15:50)
[2016-04-20] MEDS ORDERED: PROMETHAZINE HCL INJ 25 MG/1 ML VIAL ONE (15:50)
[2016-04-20] MEDS ORDERED: FLUMAZENIL INJ 0.5 MG/5 ML VIAL IV ONE (15:51)
[2016-04-20] MEDS ORDERED: GLUCAGON,HUMAN RECOMB 1 MG INJ ONE (15:51)
[2016-04-20] MEDS ORDERED: EPINEPHRINE INJ 1 MG/10 ML DISP.SYRIN ONE (15:51)
[2016-04-20] MEDS ORDERED: FENTANYL CITRATE INJ/PF 100 MCG/2 ML AMPUL ONE (15:51)
[2016-04-20] MEDS ORDERED: FLUCONAZOLE 400 MG/NS RTU 400 MG/200 ML RTUPB IV ONE (16:00)
[2016-04-20] MEDS: MIDAZOLAM 2 MG/2 ML INJ ONE ×2 (17:14→17:20)
--- NOTE | 2016-04-20 17:14 | PDOC CONSULTATION ---
Consultation Consult Date: 04/19/16 History of Present Illness Admission Date/PCP: 04/19/16 03:12 WAI TIRADO DO History of Present Illness: This is a 60-year-old patient admitted on 04/18/2016 with nausea and weakness. On admission her hemoglobin was four and this has improved to nine after transfusion. Patient had received three units of blood transfusion within the last few weeks after her recent below knee amputation. She has a chronic history of anemia and had been receiving iron infusions for many years. Her last infusion was two years ago. She thinks her iron was low prior to her recent surgery. Her ferritin was 12 during this admission and she does have microcytosis. She recently moved here from [place] and has been seen Dr. 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 Her last EGD and colonoscopy was about a year ago and according to the patient her colonoscopy was unremarkable. Her EGD did show multiple rings in the esophagus. She had an upper GI small bowel series requested by Dr. Spain back in November 2015 and this showed a string sign in the distal terminal ileum consistent with her history of Crohn's. 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 Past Medical History Cardiac Medical History: Reports: Hypertension Denies: Congestive Heart Failure, Hyperlipidema, Pulmonary Embolism Pulmonary Medical History: Reports: Asthma Denies: Chronic Obstructive Pulmonary Disease (COPD) Neurological Medical History: Reports: Migraine, Other - TIA Denies: Hemorrhagic CVA, Ischemic CVA Endocrine Medical History: Reports: Diabetes Mellitus Type 1 Denies: Diabetes Mellitus Type 2, Hyperthyroidism, Hypothyroidism GI Medical History: Reports: Crohn's Disease, Peptic Ulcer Disease - DISTANT HISTORY Denies: Cirrhosis, Hepatitis GI History Note: Crohn's involving the small bowel Psychiatric Medical History: Reports: Depression, General Anxiety Disorder, Tobacco Dependency Denies: Alcohol Dependency, Substance Abuse Hematology: Reports: Anemia Infectious Medical History: Denies: Hepatitis B, Hepatitis C Past Surgical History Past Surgical History: Multiple EGDs and colonoscopies in the past. Past Surgical History: Reports: Section, Orthopedic Surgery - R knee; R shoulder, Tonsillectomy Social History Lives with: Family Smoking Status: Former Smoker Frequency of Alcohol Use: None Hx Recreational Drug Use: No Drugs: None Hx Prescription Drug Abuse: No - Advance Directive Resuscitation Status: Full Code Family History Family History: None Parental Family History Reviewed: No Children Family History Reviewed: NA Sibling(s) Family History Reviewed.: NA Medication/Allergy Home Medications: Adalimumab [Humira] 40 mg SQ ASDIR PRN 04/19/16 Albuterol Sulfate [Albuterol Sulfate 2.5mg/3 mL] 3 ml NEB RTTIDP PRN 04/19/16 Albuterol Sulfate [Proair HFA] 2 puff PO Q4HP PRN 04/19/16 Alprazolam [Xanax 0.25 mg Tablet] 0.25 mg PO TID 04/19/16 Amlodipine Besylate [Norvasc 5 mg Tablet] 5 mg PO Q12 04/19/16 Butalb/Acetaminophen/Caffeine [Fioricet (50-325-40 mg) Tablet] 1 tab PO Q4HP PRN 04/19/16 Fluticasone Propionate [Flonase Nasal Fate 50 Mcg/Fate 16 gm] 1 spray NASL Q12 04/19/16 Fluticasone Propionate [Flovent HFA 220 mcg MDI] 2 puff PO Q12 04/19/16 Furosemide [Lasix] 40 mg PO Q12 04/19/16 Hydromorphone HCl [Dilaudid] 4 mg PO Q4HP PRN 04/19/16 Insulin Aspart [Novolog Flexpen] 4 units SQ Q12 04/19/16 Insulin Glargine,Hum.rec.anlog [Lantus Insulin 100 Unit/mL] 20 units SQ QPM Metoclopramide HCl [Reglan] 10 mg PO QID 04/19/16 Montelukast Sodium [Singulair 10 mg Tablet] 10 mg PO QPM 04/19/16 Nebulizer [Aeroeclipse II] 1 vial NEB Q4HP PRN 04/19/16 Oxycodone HCl [Oxycontin] 20 mg PO TID 04/19/16 Oxycodone HCl/Acetaminophen [Percocet 10-325 mg Tablet] 1 tab PO Q4HP PRN Prednisone [Deltasone 10 mg Tablet] 10 mg PO TID 04/19/16 Prednisone [Deltasone 5 mg Tablet] 5 mg PO QPM 04/19/16 Ranitidine HCl [Zantac 150 mg Tablet] 150 mg PO DAILY 04/19/16 Rizatriptan Benzoate [Maxalt] 5 mg PO ASDIR PRN 04/19/16 Allergies/Adverse Reactions: Sulfa (Sulfonamide Antibiotics) Allergy (Verified 04/18/16 17:03) Review of Systems All systems: reviewed and no additional remarkable complaints except as stated Physical Exam Vital Signs: Temp Pulse Resp BP Pulse Ox 99.0 F 83 18 100/69 92 04/20/16 15:12 04/20/16 15:12 04/20/16 15:12 04/20/16 15:12 04/20/16 15:12 Intake & Output 04/19/16 04/20/16 04/21/16 06:59 06:59 06:59 Intake Total 507 Balance 507 Weight 53.07 kg 53.07 kg Results Laboratory Results: 04/20/16 04:44 04/20/16 04:44 04/19/16 04/20/16 04/20/16 16:37 04:44 04:44 WBC 9.3 11.3 H RBC 3.50 L 3.61 L Hgb 8.8 L 9.0 L Hct 27.6 L 28.4 L MCV 79 L 79 L MCH 25.2 L 24.9 L MCHC 31.9 L 31.6 L RDW 21.3 H 21.1 H Plt Count 382 354 Seg Neutrophils % 61.7 65.1 Lymphocytes % 27.2 24.2 Monocytes % 8.7 8.4 Eosinophils % 1.7 1.7 Basophils % 0.7 0.6 Absolute Neutrophils 5.8 7.4 Absolute Lymphocytes 2.5 2.7 Absolute Monocytes 0.8 1.0 Absolute Eosinophils 0.2 0.2 Absolute Basophils 0.1 0.1 Sodium 137.5 Potassium 3.8 Chloride 107 Carbon Dioxide 24 Anion Gap 7 BUN 12 Creatinine 0.52 Est GFR ( Amer) > 60 Est GFR (Non-Af Amer) > 60 Glucose 83 Calcium 8.7 Assessment & Plan - Diagnosis (1) Iron deficiency anemia due to chronic blood loss Is this a current diagnosis for this admission?: YesPlan: She has a chronic history of iron deficiency anemia which I suspect was made worse by her recent amputation. She will undergo an EGD in house and a colonoscopy as outpatient. Patient could not finish the prep in the hospital (2) Crohn's disease involving terminal ileum Is this a current diagnosis for this admission?: YesPlan: There was evidence of chronic ileitis on her small bowel series in November of last year. She has not been on treatment consistently. She had been on prednisone and Humira at various times in the past. I would hold off on any aggressive treatment at this time until after reviewing her old records. A CT enterography could be performed to further evaluate her small intestines (3) Acquired esophageal ring Is this a current diagnosis for this admission?: Yes (4) Crohn disease Qualifiers: Gastrointestinal tract location: unspecified location Digestive disease complication type: without complication Qualified Code(s): K50.90 - Crohn's disease, unspecified, without complications Is this a current diagnosis for this admission?: Yes
--- NOTE | 2016-04-20 17:36 | Operative Report ---
Operative Report DATE OF SURGERY: 04/20/16 Operative Report: Pre-op diagnosis: Iron deficiency anemia Post-op diagnosis: Diffuse esophageal rings with stenosis. Rule out eosinophilic esophagitis Surgery: Esophagogastroduodenoscopy Medications: Versed 3mg Fentanyl 100 mcg IV push Tissue removed: None Procedure: After informed consent obtained from patient, the throat was sprayed with Hurricane and conscious sedation was achieved. The upper endoscope was inserted into the esophagus under direct vision and advanced towards the stomach. There were multiple rings noted in the esophagus starting from the mid esophagus with stenoses. I was not able to pass the 10 mm endoscope easily. Patient was also not well sedated and started to get agitated so I had to stop. Findings Esophagus: Multiple rings with trachealization of the esophagus and stenosis The rest of the stomach and the duodenum were not examined. Plan: Repeat EGD at the later date with propofol. Will consider gentle dilation later on OPERATION: .
[2016-04-20] MEDS: MULTIVITAMINS W-IRON TABLET, CHEWABLE PO SCH (17:39)
[2016-04-20] MEDS ORDERED: METOCLOPRAMIDE HCL 10 MG TABLET PO SCH (18:00)
[2016-04-20] MEDS ORDERED: INSULIN GLARGINE,HUM.REC.ANLOG 300 UNIT/3 ML INSULN.PEN SUBCUT SCH (18:00)
[2016-04-20] MEDS ORDERED: MONTELUKAST SODIUM 10 MG TABLET PO SCH (18:00)
[2016-04-20] MEDS: NYSTATIN/DEXAMETH/DIPHEN SUSP 120 ML PO SCH ×2 (19:22→21:13)
[2016-04-20] MEDS: METOCLOPRAMIDE HCL 10 MG TABLET PO SCH ×2 (19:30→21:14)
[2016-04-20] MEDS: PREDNISONE 20 MG TABLET PO SCH (19:30)
--- NOTE | 2016-04-20 20:34 | PDOC PROGRESS REPORT ---
Subjective Progress Note for:: 04/20/16 Subjective:: Patient complains of abdominal pain. Patient complains of nausea. Patient continues to request IV Phenergan. Patient also requests additional oxycodone. Reports that "5 mg does nothing for her". Patient reports her BKA pain is well-controlled. Patient denies chest pain, shortness of breath, vomiting, fevers, chills, constipation, headache, new onset weakness. Physical Exam Vital Signs: Temp Pulse Resp BP Pulse Ox 99.0 F 83 18 100/69 92 04/20/16 15:12 04/20/16 15:12 04/20/16 15:12 04/20/16 15:12 04/20/16 15:12 Intake & Output 04/19/16 04/20/16 04/21/16 06:59 06:59 06:59 Intake Total 507 Balance 507 Weight 53.07 kg 53.07 kg Exam: General: Awake alert and answers questions appropriately, no acute respiratory distress HEENT: Regular chelosis, PERRL, EOMI, oropharynx reveals whitish plaque, pink, no scleral icterus, no conjunctival injection Neck: No JVD, trachea midline Chest: Clear to auscultation bilaterally, no wheezes rhonchi or rales CV: Regular rate and rhythm, normal S1 and S2, no murmur, rub, or gallop Abdomen: Soft, mildly diffusely tender to palpation, nondistended, active bowel sounds; no rebound, rigidity, or guarding Extremities: No cyanosis, clubbing or edema; left BKA Neuro: Cranial nerves II through XII are grossly intact without focal deficits Psych: Unusual mood and affect Results Laboratory Results: 04/20/16 04:44 04/20/16 04:44 04/19/16 04/20/16 04/20/16 16:37 04:44 04:44 WBC 9.3 11.3 H RBC 3.50 L 3.61 L Hgb 8.8 L 9.0 L Hct 27.6 L 28.4 L MCV 79 L 79 L MCH 25.2 L 24.9 L MCHC 31.9 L 31.6 L RDW 21.3 H 21.1 H Plt Count 382 354 Seg Neutrophils % 61.7 65.1 Lymphocytes % 27.2 24.2 Monocytes % 8.7 8.4 Eosinophils % 1.7 1.7 Basophils % 0.7 0.6 Absolute Neutrophils 5.8 7.4 Absolute Lymphocytes 2.5 2.7 Absolute Monocytes 0.8 1.0 Absolute Eosinophils 0.2 0.2 Absolute Basophils 0.1 0.1 Sodium 137.5 Potassium 3.8 Chloride 107 Carbon Dioxide 24 Anion Gap 7 BUN 12 Creatinine 0.52 Est GFR ( Amer) > 60 Est GFR (Non-Af Amer) > 60 Glucose 83 Calcium 8.7 Assessment & Plan - Diagnosis (1) Iron deficiency anemia due to chronic blood loss Is this a current diagnosis for this admission?: YesPlan: Patient has received several units of packed red blood cells. This is also likely secondary to to her Crohn's disease. appreciate hematology consultation. (2) Severe anemia Is this a current diagnosis for this admission?: YesPlan: Appreciate hematology consult. (3) UTI (urinary tract infection) Qualifiers: Urinary tract infection type: acute cystitis Hematuria presence: without hematuria Qualified Code(s): N30.00 - Acute cystitis without hematuria Is this a current diagnosis for this admission?: YesPlan: Will repeat urine culture. Patient is currently on Rocephin but grow mixture genital amanda. Patient's UA was quite suspicious for UTI. (4) Crohn disease Qualifiers: Gastrointestinal tract location: unspecified location Digestive disease complication type: without complication Qualified Code(s): K50.90 - Crohn's disease, unspecified, without complications Is this a current diagnosis for this admission?: YesPlan: Patient has history of terminal ileal Crohn's. Patient had last endoscopy 1 year ago. Patient currently is unable to complete prep. Patient reports having been on prednisone taper prior to admission taking 20 mg in the morning and 10 mg at night. Will resume 40 mg by mouth biD. 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 Patient will likely need an increase in this given addition of steroids. (7) Hx of BKA Qualifiers: Laterality: left Qualified Code(s): Z89.512 - Acquired absence of left leg below knee Is this a current diagnosis for this admission?: YesPlan: Have consulted physical therapy. Continue home pain medication. - Time Time Spent with patient: 35 or more minutes Medications reviewed and adjusted accordingly: Yes
[2016-04-20] MEDS: FLUTICASONE NASAL SPRAY 50 MCG/SPRY 120 SPRAY/16 GM NASL SCH (21:14)
[2016-04-20] MEDS: AMLODIPINE BESYLATE 5 MG TABLET PO SCH (21:14)
[2016-04-20] MEDS ORDERED: FUROSEMIDE 40 MG TABLET PO SCH (22:00)
[2016-04-20] MEDS ORDERED: HALOPERIDOL LACTATE INJ 5 MG/1 ML VIAL IV ONE (23:15)
[2016-04-20] MEDS ORDERED: HALOPERIDOL LACTATE INJ 5 MG/1 ML VIAL IV PRN (23:46)
[2016-04-21] MEDS: OXYCODONE HCL IR 5 MG TABLET PO PRN (03:54)
[2016-04-21] MEDS: OXYCODONE HCL SR 10 MG TABLET PO SCH ×2 (05:27→15:07)
[2016-04-21] MEDS: PROMETHAZINE HCL INJ 50 MG/1 ML VIAL IM PRN ×2 (09:28→15:15)
[2016-04-21] MEDS: AMLODIPINE BESYLATE 5 MG TABLET PO SCH (09:28)
[2016-04-21] MEDS: PANTOPRAZOLE SODIUM 40 MG VIAL IV SCH (09:28)
[2016-04-21] MEDS: PREDNISONE 20 MG TABLET PO SCH (09:29)
[2016-04-21] MEDS: METOCLOPRAMIDE HCL 10 MG TABLET PO SCH ×2 (09:29→15:07)
[2016-04-21] MEDS: CEFTRIAXONE 1 GM/D5W RTU 50 ML IV SCH (09:29)
[2016-04-21] MEDS: NYSTATIN/DEXAMETH/DIPHEN SUSP 120 ML PO SCH ×2 (09:33→15:08)
[2016-04-21] MEDS: FLUTICASONE NASAL SPRAY 50 MCG/SPRY 120 SPRAY/16 GM NASL SCH (09:34)
[2016-04-21] MEDS: MULTIVITAMINS W-IRON TABLET, CHEWABLE PO SCH (09:34)
[2016-04-21] MEDS ORDERED: FLUCONAZOLE 200 MG/NS RTU 100 ML IV SCH (10:00)
[2016-04-21] MEDS ORDERED: FERUMOXYTOL (NON-ESRD) 510 MG/NS 100 ML IV SCH ×2 (10:00)
--- NOTE | 2016-04-21 12:12 | PDOC PROGRESS REPORT ---
Subjective Progress Note for:: 04/21/16 Subjective:: PT got EGD but prep not completed for colonscopy, pt still w/ nausea Physical Exam Vital Signs: Temp Pulse Resp BP Pulse Ox 98.1 F 77 18 95/59 L 94 04/21/16 07:24 04/21/16 07:24 04/21/16 07:24 04/21/16 07:24 04/21/16 07:24 Intake & Output 04/20/16 04/21/16 04/22/16 06:59 06:59 06:59 Intake Total 507 4295 Output Total 1500 Balance 507 2795 Weight 53.07 kg General appearance: PRESENT: no acute distress, well-developed, well-nourished Head exam: PRESENT: atraumatic, normocephalic Eye exam: PRESENT: conjunctiva pink, EOMI, PERRLA. ABSENT: scleral icterus Ear exam: PRESENT: normal external ear exam Mouth exam: PRESENT: moist, tongue midline Neck exam: ABSENT: carotid bruit, JVD, lymphadenopathy, thyromegaly Respiratory exam: PRESENT: clear to auscultation jenaro. ABSENT: rales, rhonchi, wheezes Cardiovascular exam: PRESENT: RRR. ABSENT: diastolic murmur, rubs, systolic murmur Pulses: PRESENT: normal dorsalis pedis pul Vascular exam: PRESENT: normal capillary refill GI/Abdominal exam: PRESENT: normal bowel sounds, soft. ABSENT: distended, guarding, mass, organolmegaly, rebound, tenderness Rectal exam: PRESENT: deferred Extremities exam: PRESENT: full ROM. ABSENT: calf tenderness, clubbing, pedal edema Neurological exam: PRESENT: alert, awake, oriented to person, oriented to place , oriented to time, oriented to situation, CN II-XII grossly intact. ABSENT: motor sensory deficit Psychiatric exam: PRESENT: appropriate affect, normal mood. ABSENT: homicidal ideation, suicidal ideation Skin exam: PRESENT: dry, intact, warm. ABSENT: cyanosis, rash Results Laboratory Results: 04/20/16 04:44 04/20/16 04:44 Assessment & Plan - Diagnosis (1) Severe anemia Is this a current diagnosis for this admission?: YesPlan: hb improved, give 1 more dose IV iron today and see pt back 1 m w/ repeat imaging. Told pt and hospitalist team to hold xarelto x 1m (maybe cause of GI bleeding) until she sees me back and we will decide if clinically necessary to remain on anticoag. - Time Time Spent with patient: 25-34 minutes Critical Time spent with patient: 25-34 minutes Within: within 24 hours
[2016-04-21 13:16] VITALS: BP 108/57
--- NOTE | 2016-04-21 17:41 | PDOC DISCHARGE SUMMARY ---
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 Is this a current diagnosis for this admission?: Yes (7) Hx of BKA Is this a current diagnosis for this admission?: Yes (8) Eosinophilic esophagitis Is this a current diagnosis for this admission?: Yes (9) Crohn's disease involving terminal ileum Is this a current diagnosis for this admission?: Yes (10) Angular cheilitis with candidiasis Is this a current diagnosis for this admission?: Yes (11) Thrush, oral Is this a current diagnosis for this admission?: Yes - Additional Information Resuscitation Status: Full Code Discharge Diet: Cardiac, Diabetic Discharge Activity: Activity As Tolerated, Slowly Increase Activity Home Medications: Adalimumab [Humira] 40 mg SQ ASDIR PRN 04/19/16 Albuterol Sulfate [Albuterol Sulfate 2.5mg/3 mL] 3 ml NEB RTTIDP PRN 04/19/16 Albuterol Sulfate [Proair HFA] 2 puff PO Q4HP PRN 04/19/16 Alprazolam [Xanax 0.25 mg Tablet] 0.25 mg PO TID 04/19/16 Amlodipine Besylate [Norvasc 5 mg Tablet] 5 mg PO Q12 04/19/16 Butalb/Acetaminophen/Caffeine [Fioricet (50-325-40 mg) Tablet] 1 tab PO Q4HP PRN 04/19/16 Fluticasone Propionate [Flonase Nasal [place] 50 Mcg/[place] 16 gm] 1 spray NASL Q12 04/19/16 Fluticasone Propionate [Flovent HFA 220 mcg MDI] 2 puff PO Q12 04/19/16 Montelukast Sodium [Singulair 10 mg Tablet] 10 mg PO QPM 04/19/16 Oxycodone HCl [Oxycontin] 20 mg PO TID 04/19/16 Fluconazole [Diflucan 100 Mg Tablet] 100 mg PO DAILY #5 tablet 04/21/16 Multivitamins W-Iron [Flintstones Chewable Multivit W/Fe Tab] 2 tab PO BID #120 tab.chew 04/21/16 Nystatin/Dexameth/Diphen [Magic Mouthwash (Omh Formula) Susp] 5 ml PO QID #120 ml 04/21/16 Ondansetron HCl [Zofran 4 mg Tablet] 1 tab PO Q6HP PRN #60 tablet 04/21/16 Oxycodone HCl [Oxycontin Sr 10 mg Tablet] 20 mg PO Q8 tab.sr.12h 04/21/16 Pantoprazole Sodium [Protonix] 40 mg PO BID #60 tablet. 04/21/16 Prednisone [Deltasone 20 mg Tablet] 40 mg PO BID #28 tablet 04/21/16 Promethazine HCl [Phenergan 25 mg Supp.rect] 1 supp HI Q6HP PRN #12 supp.rect Promethazine HCl [Phenergan 25 mg Tablet] 25 mg PO Q4HP PRN #30 tablet 04/21/16 History of Present Illness History of Present Illness: Please see H&P for full history of present illness Hospital Course Hospital Course: Patient was transfused a total of 3 units of packed red blood cells with an appropriate response in her hemoglobin from 4.9-9.0. Patient also underwent upper endoscopy which revealed possible eosinophilic esophagitis. Hematology was consulted for her anemia and patient is found to be profoundly iron deficient and was given IV iron. Patient was unable to complete prep for lower endoscopy. At this time, hematology recommends holding Xarelto until she is able to follow with them. They did not recommend a ultrasound at this time of her lower extremity. I discussed the possibility of in-house endoscopy with Dr. Pepper from GI and he reports he will do her as an outpatient. At this time did not recommend topical steroids for treatment of her eosinophilic esophagitis. Will place patient on PPI twice a day and will follow-up with GI. I did discuss the importance of following up with GI to the patient. I also discussed with her the importance of following up with hematology, Dr. Davide Long , for her clotting issues and anemia. Patient is doing well and stable for discharge. Physical Exam Vital Signs: Temp Pulse Resp BP Pulse Ox 98.1 F 77 18 108/57 L 96 04/21/16 12:55 04/21/16 12:55 04/21/16 12:55 04/21/16 12:55 04/21/16 12:55 Intake & Output 04/20/16 04/21/16 04/22/16 06:59 06:59 06:59 Intake Total 507 4295 Output Total 1500 Balance 507 2795 Weight 53.07 kg Exam: General: Awake alert and answers questions appropriately, no acute respiratory distress HEENT: Regular chelitis, PERRL, EOMI, oropharynx reveals whitish plaque, pink, no scleral icterus, no conjunctival injection Neck: No JVD, trachea midline Chest: Clear to auscultation bilaterally, no wheezes rhonchi or rales CV: Regular rate and rhythm, normal S1 and S2, no murmur, rub, or gallop Abdomen: Soft, mildly diffusely tender to palpation, nondistended, active bowel sounds; no rebound, rigidity, or guarding Extremities: No cyanosis, clubbing or edema; left BKA Neuro: Cranial nerves II through XII are grossly intact without focal deficits Psych: Unusual mood and affect Results Laboratory Results: 04/20/16 04:44 04/20/16 04:44 Qualifiers PATEINT BEING DISCHARGED WITH ANY OF THE FOLLOWING DIAGNOSIS?: No Plan Time Spent: Greater than 30 Minutes
[2016-04-21] MEDS ORDERED: INFLUENZA ADLT QUAD (36MOS+) 2016-17 VAC 0.5 ML SYR IM PRN (17:47)
== END 2016-04-21 18:20 | disposition home or self-care (01) | DRG 812 ==
LOC: ER 16:37 → UNDOADMIN 19:49 → EH 19:49 → 3N 04-19 17:10
PROVIDERS: ADMIT Family Medicine; ATTEND Family Medicine
PROC: 30233N1 Transfusion of Nonautologous Red Blood Cells into Peripheral Vein, Percutaneous Approach (ICD-10-PCS; principal; 2016-04-19)
PROC: 0DJ08ZZ Inspection of Upper Intestinal Tract, Via Natural or Artificial Opening Endoscopic (ICD-10-PCS; 2016-04-20)
PROC: 3E0F73Z Introduction of Anti-inflammatory into Respiratory Tract, Via Natural or Artificial Opening (ICD-10-PCS; 2016-04-21)
PROC: 3E0234Z Introduction of Serum, Toxoid and Vaccine into Muscle, Percutaneous Approach (ICD-10-PCS; 2016-04-21)
DX: D50.0 Iron deficiency anemia secondary to blood loss (chronic) (principal); N30.00 Acute cystitis without hematuria; K50.00 Crohn's disease of small intestine without complications; B37.83 Candidal cheilitis; B37.0 Candidal stomatitis; I10 Essential (primary) hypertension; K20.0 Eosinophilic esophagitis; F32.9 Major depressive disorder, single episode, unspecified; J45.909 Unspecified asthma, uncomplicated; F41.1 Generalized anxiety disorder; K22.2 Esophageal obstruction; L30.9 Dermatitis, unspecified; E10.69 Type 1 diabetes mellitus with other specified complication; I70.209 Unspecified atherosclerosis of native arteries of extremities, unspecified extremity; Z79.899 Other long term (current) drug therapy; Z89.519 Acquired absence of unspecified leg below knee; Z23 Encounter for immunization; Z87.11 Personal history of peptic ulcer disease; Z87.891 Personal history of nicotine dependence; Z88.2 Allergy status to sulfonamides; Z89.512 Acquired absence of left leg below knee; Z86.73 Personal history of transient ischemic attack (TIA), and cerebral infarction without residual deficits
CPT/HCPCS: 36415; 36430; 43235; 80048; 80053; 81001; 82272; 82607; 82728; 82746; 82962; 83540; 83550; 83690; 83735; 84443; 84466; 85025; 85045; 85610; 85730; 86850; 86900; 86901; 86920; 87040; 87086; 90686; 99291; J0171; J0696; J0780; J1610; J2250; J2310; J2405; J2550; J3010; J3490; J7512; P9016; Q0138; S0164

== ENCOUNTER 2016-05-04 04:32 | Inpatient (IN) | payer MEDICARE, MEDICAID ==
[2016-05-04 05:32] LABS: ALANINE AMINOTRANSFERASE 28 U/L (9-52); ALBUMIN 3.2 g/dL (3.5-5.0); ALKALINE PHOSPHATASE 166 U/L (38-126); ANION GAP 8 (5-19); ASPARTATE AMINO TRANSFERASE 19 U/L (14-36); BILIRUBIN,TOTAL 0.4 mg/dL (0.2-1.3); BLOOD UREA NITROGEN 12 mg/dL (7-20); CALCIUM 9.5 mg/dL (8.4-10.2); CARBON DIOXIDE 29 mmol/L (22-30); CHLORIDE 101 mmol/L (98-107); GLUCOSE 72 mg/dL (75-110); LIPASE 51.6 U/L (23-300); POTASSIUM 3.1 mmol/L (3.6-5.0); SODIUM 137.9 mmol/L (137-145); TOTAL PROTEIN 5.7 g/dL (6.3-8.2)
[2016-05-04 05:34] LABS: APPEARANCE,URINE CLEAR; BILIRUBIN,URINE NEGATIVE (NEGATIVE); GLUCOSE, URINE NEGATIVE (NEGATIVE); KETONES,URINE NEGATIVE (NEGATIVE); LEUKOCYTE ESTERASE,URINE TRACE (NEGATIVE); NITRITE,URINE NEGATIVE (NEGATIVE); PROTEIN,URINE NEGATIVE (NEGATIVE); URINE SPECIFIC GRAVITY 1.012; UROBILINOGEN,URINE NEGATIVE mg/dL (<2.0)
[2016-05-04 06:00] LABS: ABSOLUTE BASOPHILS # (AUTO) 0.1 10^3/uL (0.0-0.2); ABSOLUTE EOSINOPHILS # (AUTO) 0.1 10^3/uL (0.0-0.6); ABSOLUTE LYMPHOCYTES (AUTO) 2.7 10^3/uL (0.5-4.7); ABSOLUTE MONOCYTES (AUTO) 1.3 10^3/uL (0.1-1.4); ABSOLUTE NEUT (AUTO) 13.7 10^3/uL (1.7-8.2); BASOPHILS % (AUTO) 0.5 % (0-2); EOSINOPHILS % (AUTO) 0.7 % (0-6); HEMATOCRIT 34.2 % (36.0-47.0); HEMOGLOBIN 10.8 g/dL (12.0-15.5); HGB HCT DIFFERENCE -1.8; LYMPHOCYTES % (AUTO) 15.2 % (13-45); MEAN CORPUSCULAR HGB CONC 31.7 g/dL (32.0-36.0); MONOCYTES % (AUTO) 7.3 % (3-13); RED BLOOD COUNT 4.01 10^6/uL (3.72-5.28); RED CELL DISTRIBUTION WIDTH 25.2 % (11.5-14.0); SEGMENTED NEUTROPHILS % (AUTO) 76.3 % (42-78)
--- NOTE | 2016-05-04 06:22 | ER Document Report ---
ED General - General Chief Complaint: Abdominal Pain Stated Complaint: ABDOMINAL PAIN Time seen by provider: 06:18 Mode of Arrival: Ambulatory Information source: Patient Notes: 60-year-old female presents with 2 day history of diffuse abdominal pain and cramping along with nausea typical 40s had a past with Crohn's disease. She thinks her last exacerbation this bad was several months ago. She reports following Dr. Yen for this locally. She also had a recent admission with GI bleed thought secondary to Xarelto she is on no anticoagulation. She reports diarrhea for the past 2 days thinks she might of had some blood in it but denies melena. She also states she thinks she has urinary tract infection and reports 3 days of urinary urgency frequency and urinary incontinence. She reports temperature she thinks about 100.2 at home yesterday. He reports occasional nonproductive cough but denies shortness breath, chest pain, or back pain. He is status post recent left BKA in [place] and reports no recent problems with her surgical site. Physical Exam: General: Alert, appears uncomfortable HEENT: Normocephalic. Atraumatic. PERRLA. Extraocular movements intact. Oropharynx clear. Neck: Supple. Non-tender. Respiratory: No respiratory distress. Clear and equal breath sounds bilaterally. Cardiovascular: Regular rate and rhythm. Abdominal: Abdomen mildly distended few faint bowel sounds. Moderate tenderness in all 4 quadrants with trace voluntary guarding no rebound rigidity Back: Non-tender. No deformity or step off. Upper extremities warm with 2+ pulses of cyanosis no edema Left lower extremity BKA dressing clean and dry Right lower extremity with 2+ assessed pedis posterior tibial pulses no Homans sign Neurological: Speech clear mentation normal research clerk strength 5 out of 5 equal both upper extremities Psychological: Normal affect. Normal Mood. Skin: Warm. Dry. Normal color. TRAVEL OUTSIDE OF THE [place] IN LAST 30 DAYS: No - Related Data Allergies/Adverse Reactions: Sulfa (Sulfonamide Antibiotics) Allergy (Verified 05/04/16 04:41) Past Medical History - Social History Smoking Status: Current Every Day Smoker Frequency of alcohol use: Occasional Drug Abuse: None Family History: None Patient has suicidal ideation: No Patient has homicidal ideation: No - Past Medical History Cardiac Medical History: Reports: Hx Hypertension Denies: Hx Congestive Heart Failure, Hx Hypercholesterolemia, Hx Pulmonary Embolism Pulmonary Medical History: Reports: Hx Asthma Denies: Hx COPD Neurological Medical History: Reports: Hx Migraine. Denies: Hx Seizures Endocrine Medical History: Reports: Hx Diabetes Mellitus Type 1. Denies: Hx Diabetes Mellitus Type 2, Hx Hyperthyroidism, Hx Hypothyroidism Renal/ Medical History: Denies: Hx Peritoneal Dialysis GI Medical History: Reports: Hx Crohn's Disease. Denies: Hx Cirrhosis, Hx Hepatitis Psychiatric Medical History: Reports: Hx Depression Infectious Medical History: Denies: Hx Hepatitis Past Surgical History: Reports: Hx Section, Hx Orthopedic Surgery - R knee; R shoulder, Hx Tonsillectomy. Denies: Hx Hysterectomy - Immunizations Hx Diphtheria, Pertussis, Tetanus Vaccination: Yes Review of Systems - Review of Systems Constitutional: denies: Chills EENT: denies: Ear pain, Throat pain Cardiovascular: See HPI Respiratory: See HPI Gastrointestinal: See HPI Genitourinary: See HPI Female Genitourinary: denies: Post menopausal Musculoskeletal: denies: Back pain, Leg swelling Hematologic/Lymphatic: denies: Swollen glands Neurological/Psychological: denies: Weakness, Numbness Physical Exam - Vital signs Vitals: Temp Pulse Resp BP Pulse Ox 97.4 F 84 18 144/78 H 93 05/04/16 04:45 05/04/16 04:45 05/04/16 04:45 05/04/16 04:45 05/04/16 04:45 Course - Re-evaluation Re-evalutation: 05/04/16 09:40 Reevaluation after IV fluids and medication for pain and nauseousness his abdomen to continue to be distended with moderate tenderness in all quadrants but no rebound or rigidity. Patient reports that in the past when her symptoms have been this bad she's required admission. She reports that sometimes with the symptoms she's required NG tube which she was told off this time unless her nausea returns. I think her CT findings are consistent with partial bowel structure related to Crohn's disease and not evidence of a surgical emergency. I discussed the case with Dr. williamson of the hospitalist service who will be coming to see patient - Vital Signs Vital signs: Temp Pulse Resp BP Pulse Ox 97.4 F 84 18 144/78 H 93 05/04/16 04:45 05/04/16 04:45 05/04/16 04:45 05/04/16 04:45 05/04/16 04:45 - Laboratory Result Diagrams: 05/04/16 05:45 05/04/16 05:11 Laboratory results interpreted by me: 05/04/16 05/04/16 05/04/16 05:11 05:18 05:45 WBC 18.0 H Hgb 10.8 L Hct 34.2 L MCHC 31.7 L RDW 25.2 H Absolute Neutrophils 13.7 H Potassium 3.1 L Creatinine 0.50 L Glucose 72 L Alkaline Phosphatase 166 H Total Protein 5.7 L Albumin 3.2 L Urine Blood MODERATE H Ur Leukocyte Esterase TRACE H - Diagnostic Test Radiology reviewed: Image reviewed, Reports reviewed - EKG Interpretation by Me Additional EKG results interpreted by me: 05/04/16 09:39 EKG reviewed by myself sinus rhythm at [address] changes no significant change compared to 02/22/2016 Discharge - Discharge Clinical Impression: Crohn's disease Qualifiers: Gastrointestinal tract location: unspecified location Digestive disease complication type: without complication Qualified Code(s): K50.90 - Crohn's disease, unspecified, without complications Abdominal pain Qualifiers: Abdominal location: generalized Qualified Code(s): R10.84 - Generalized abdominal pain Condition: Fair Disposition: ADMITTED INPATIENT Admitting Provider: Hospitalist Unit Admitted: Medical Floor
[2016-05-04 06:23] LABS: MEAN CORPUSCULAR VOLUME 85 fl (80-97)
[2016-05-04] MEDS ORDERED: PROMETHAZINE HCL INJ 25 MG/1 ML VIAL IV ONE (06:25)
[2016-05-04] MEDS ORDERED: MORPHINE SULFATE 10 MG/ML INJ IV ONE (06:25)
[2016-05-04] MEDS ORDERED: NORMAL SALINE 1000 ML 1,000 ML IV ONE (06:25)
[2016-05-04] MEDS ORDERED: POTASSI CL 20 MEQ/NS 1L 1,000 ML IV ONE ×2 (06:26→11:29)
[2016-05-04 06:30] LABS: ANISOCYTOSIS 3+; HYPOCHROMASIA SLIGHT; OVALOCYTES SLIGHT; POIKILOCYTOSIS SLIGHT; POLYCHROMASIA SLIGHT; TEAR DROP CELLS SLIGHT; TOXIC GRANULATION SLIGHT; TOXIC VACUOLATION PRESENT
[2016-05-04] MEDS ORDERED: PROMETHAZINE HCL INJ 25 MG/1 ML VIAL ONE (06:56)
[2016-05-04] MEDS ORDERED: HYDROMORPHONE HCL INJ/PF 2 MG/ML AMPULE IV ONE (11:20)
--- NOTE | 2016-05-04 12:00 | PDOC H&P ---
History of Present Illness Admission Date/PCP: 05/04/16 10:32 WAI TIRADO DO Patient complains of: Abdominal pain nausea and vomiting History of Present Illness: RAI VGOT is a 60 year old female presents with 2 day history of diffuse abdominal pain and cramping along with nausea typical 40s had a past with Crohn's disease. She thinks her last exacerbation this bad was several months ago. She reports following Dr. Yen for this locally. She also had a recent admission with GI bleed thought secondary to Xarelto she is on no anticoagulation. She reports diarrhea for the past 2 days thinks she might of had some blood in it but denies melena. She also states she thinks she has urinary tract infection and reports 3 days of urinary urgency frequency and urinary incontinence. She reports temperature she thinks about 100.2 at home yesterday. He reports occasional nonproductive cough but denies shortness breath, chest pain, or back pain. He is status post recent left BKA in [place] and reports no recent problems with her surgical site. Upon evaluation in the ED patient was found to have been extremely tender abdomen; A CT abdomen and pelvis suggestive of partial small bowel obstruction The white blood count was 18,000 Patient was subsequently admitted under hospitalist service for further evaluation and care Cipro Flagyl methylprednisolone were initiated PICC line to be inserted A GI consult was called for Dr. Pepper Past Medical History Cardiac Medical History: Reports: Hypertension Denies: Congestive Heart Failure, Hyperlipidema, Pulmonary Embolism Pulmonary Medical History: Reports: Asthma Denies: Chronic Obstructive Pulmonary Disease (COPD) Neurological Medical History: Reports: Migraine Denies: Seizures Endocrine Medical History: Reports: Diabetes Mellitus Type 1 Denies: Diabetes Mellitus Type 2, Hyperthyroidism, Hypothyroidism GI Medical History: Reports: Crohn's Disease Denies: Cirrhosis, Hepatitis Psychiatric Medical History: Reports: Depression Hematology: Reports: Anemia Past Surgical History Past Surgical History: Reports: Section, Orthopedic Surgery - R knee; R shoulder, Tonsillectomy Denies: Hysterectomy Social History Smoking Status: Current Every Day Smoker Frequency of Alcohol Use: None Hx Recreational Drug Use: No Drugs: None Hx Prescription Drug Abuse: No - Advance Directive Resuscitation Status: Full Code Surrogate healthcare decision maker:: Her daughter Natasha Family History Family History: None, Reviewed & Not Pertinent Parental Family History Reviewed: Yes Children Family History Reviewed: Yes Sibling(s) Family History Reviewed.: Yes Medication/Allergy Home Medications: Adalimumab [Humira] 40 mg SQ ASDIR PRN 04/19/16 Albuterol Sulfate [Albuterol Sulfate 2.5mg/3 mL] 3 ml NEB RTTIDP PRN 04/19/16 Albuterol Sulfate [Proair HFA] 2 puff PO Q4HP PRN 04/19/16 Alprazolam [Xanax 0.25 mg Tablet] 0.25 mg PO TID 04/19/16 Amlodipine Besylate [Norvasc 5 mg Tablet] 5 mg PO Q12 04/19/16 Butalb/Acetaminophen/Caffeine [Fioricet (50-325-40 mg) Tablet] 1 tab PO Q4HP PRN 04/19/16 Fluticasone Propionate [Flonase Nasal [place] 50 Mcg/[place] 16 gm] 1 spray NASL Q12 04/19/16 Fluticasone Propionate [Flovent HFA 220 mcg MDI] 2 puff PO Q12 04/19/16 Montelukast Sodium [Singulair 10 mg Tablet] 10 mg PO QPM 04/19/16 Oxycodone HCl [Oxycontin] 20 mg PO TID 04/19/16 Fluconazole [Diflucan 100 Mg Tablet] 100 mg PO DAILY #5 tablet 04/21/16 Multivitamins W-Iron [Flintstones Chewable Multivit W/Fe Tab] 2 tab PO BID #120 tab.chew 04/21/16 Nystatin/Dexameth/Diphen [Magic Mouthwash (Omh Formula) Susp] 5 ml PO QID #120 ml 04/21/16 Ondansetron HCl [Zofran 4 mg Tablet] 1 tab PO Q6HP PRN #60 tablet 04/21/16 Oxycodone HCl [Oxycontin Sr 10 mg Tablet] 20 mg PO Q8 tab.sr.12h 04/21/16 Pantoprazole Sodium [Protonix] 40 mg PO BID #60 tablet. 04/21/16 Prednisone [Deltasone 20 mg Tablet] 40 mg PO BID #28 tablet 04/21/16 Promethazine HCl [Phenergan 25 mg Supp.rect] 1 supp RI Q6HP PRN #12 supp.rect Promethazine HCl [Phenergan 25 mg Tablet] 25 mg PO Q4HP PRN #30 tablet 04/21/16 Allergies/Adverse Reactions: Sulfa (Sulfonamide Antibiotics) Allergy (Verified 05/04/16 04:41) Review of Systems Constitutional: PRESENT: fever(s). ABSENT: chills, headache(s), weight gain, weight loss Eyes: ABSENT: visual disturbances Ears: ABSENT: hearing changes Cardiovascular: ABSENT: chest pain, dyspnea on exertion, edema, orthropnea, palpitations Respiratory: ABSENT: cough, hemoptysis Gastrointestinal: PRESENT: abdominal pain, nausea, vomiting. ABSENT: constipation, diarrhea, hematemesis, hematochezia Genitourinary: ABSENT: dysuria, hematuria Musculoskeletal: ABSENT: joint swelling Integumentary: ABSENT: rash, wounds Neurological: ABSENT: abnormal gait, abnormal speech, confusion, dizziness, focal weakness, syncope Psychiatric: ABSENT: anxiety, depression, homidical ideation, suicidal ideation Endocrine: ABSENT: cold intolerance, heat intolerance, polydipsia, polyuria Hematologic/Lymphatic: ABSENT: easy bleeding, easy bruising Physical Exam Vital Signs: Temp Pulse Resp BP Pulse Ox 97.4 F 84 18 144/78 H 93 05/04/16 04:45 05/04/16 04:45 05/04/16 04:45 05/04/16 04:45 05/04/16 04:45 General appearance: PRESENT: mild distress, thin Head exam: PRESENT: atraumatic, normocephalic Eye exam: PRESENT: conjunctiva pink, EOMI, PERRLA. ABSENT: scleral icterus Neck exam: ABSENT: carotid bruit, JVD, lymphadenopathy, thyromegaly Respiratory exam: PRESENT: clear to auscultation jenaro. ABSENT: rales, rhonchi, wheezes Cardiovascular exam: PRESENT: RRR. ABSENT: diastolic murmur, rubs, systolic murmur Pulses: PRESENT: normal dorsalis pedis pul GI/Abdominal exam: PRESENT: guarding - diffuse, tenderness Rectal exam: PRESENT: deferred Neurological exam: PRESENT: alert, awake, oriented to person, oriented to place , oriented to time, oriented to situation, CN II-XII grossly intact. ABSENT: motor sensory deficit Psychiatric exam: PRESENT: appropriate affect, normal mood. ABSENT: homicidal ideation, suicidal ideation Skin exam: PRESENT: dry, intact, warm. ABSENT: cyanosis, rash Results Laboratory Results: Labs- Entire Visit 05/04/16 05/04/16 05/04/16 05:11 05:11 05:11 WBC Cancelled RBC Cancelled Hgb Cancelled Hct Cancelled MCV Cancelled MCH Cancelled MCHC Cancelled RDW Cancelled Plt Count Cancelled Seg Neutrophils % Cancelled Lymphocytes % Cancelled Monocytes % Cancelled Eosinophils % Cancelled Basophils % Cancelled Absolute Neutrophils Cancelled Absolute Lymphocytes Cancelled Absolute Monocytes Cancelled Absolute Eosinophils Cancelled Absolute Basophils Cancelled Toxic Granulation Toxic Vacuolation Platelet Estimate Cancelled Platelet Comment Polychromasia Hypochromasia Poikilocytosis Basophilic Stippling Anisocytosis Tear Drop Cells Ovalocytes Sodium 137.9 Potassium 3.1 L Chloride 101 Carbon Dioxide 29 Anion Gap 8 BUN 12 Creatinine 0.50 L Est GFR ( Amer) > 60 Est GFR (Non-Af Amer) > 60 Glucose 72 L Calcium 9.5 Magnesium 1.7 Total Bilirubin 0.4 Direct Bilirubin 0.0 AST 19 ALT 28 Alkaline Phosphatase 166 H Total Protein 5.7 L Albumin 3.2 L Lipase 51.6 Urine Color Urine Appearance Urine pH Ur Specific [place] Urine Protein Urine Glucose (UA) Urine Ketones Urine Blood Urine Nitrite Urine Bilirubin Urine Urobilinogen Ur Leukocyte Esterase Urine WBC (Auto) Urine RBC (Auto) Urine Bacteria (Auto) Squamous Epi Cells Auto Urine Ascorbic Acid Slides for Path Review Cancelled 05/04/16 05/04/16 05:18 05:45 WBC 18.0 H RBC 4.01 Hgb 10.8 L Hct 34.2 L MCV 85 D MCH 27.0 MCHC 31.7 L RDW 25.2 H Plt Count 343 Seg Neutrophils % 76.3 Lymphocytes % 15.2 Monocytes % 7.3 Eosinophils % 0.7 Basophils % 0.5 Absolute Neutrophils 13.7 H Absolute Lymphocytes 2.7 Absolute Monocytes 1.3 Absolute Eosinophils 0.1 Absolute Basophils 0.1 Toxic Granulation SLIGHT Toxic Vacuolation PRESENT Platelet Estimate Platelet Comment ADEQUATE Polychromasia SLIGHT Hypochromasia SLIGHT Poikilocytosis SLIGHT Basophilic Stippling PRESENT Anisocytosis 3+ Tear Drop Cells SLIGHT Ovalocytes SLIGHT Sodium Potassium Chloride Carbon Dioxide Anion Gap BUN Creatinine Est GFR ( Amer) Est GFR (Non-Af Amer) Glucose Calcium Magnesium Total Bilirubin Direct Bilirubin AST ALT Alkaline Phosphatase Total Protein Albumin Lipase Urine Color YELLOW Urine Appearance CLEAR Urine pH 6.0 Ur Specific [place] 1.012 Urine Protein NEGATIVE Urine Glucose (UA) NEGATIVE Urine Ketones NEGATIVE Urine Blood MODERATE H Urine Nitrite NEGATIVE Urine Bilirubin NEGATIVE Urine Urobilinogen NEGATIVE Ur Leukocyte Esterase TRACE H Urine WBC (Auto) 7 Urine RBC (Auto) 2 Urine Bacteria (Auto) TRACE Squamous Epi Cells Auto 2 Urine Ascorbic Acid NEGATIVE Slides for Path Review EKG Comments: SINUS RHYTHM Impressions: Abdomen/Pelvis CT 05/04/16 06:23 IMPRESSION: Abnormal distal ileum with alternating strictures and saccular dilatation from inflammatory bowel disease. This is similar compared to small bowel follow-through 11/24/2015 Fluid-filled distended proximal and mid ileum from partial obstruction. Assessment & Plan - Diagnosis (1) Partial small bowel obstruction Is this a current diagnosis for this admission?: YesPlan: The case was discussed with Dr. Pepper We will treat the patient with Cipro Flagyl methylprednisolone Patient will be nothing by mouth just ice chips We have to follow the patient clinically very closely Patient's condition worsens surgical consult will be obtained Patient may become a candidate for small bowel resection (2) Abdominal pain Qualifiers: Abdominal location: generalized Qualified Code(s): R10.84 - Generalized abdominal pain Is this a current diagnosis for this admission?: Yes (3) Crohns disease Qualifiers: Gastrointestinal tract location: unspecified location Digestive disease complication type: unspecified complication Qualified Code(s): K50.919 - Crohn's disease, unspecified, with unspecified complications Is this a current diagnosis for this admission?: YesPlan: Partial small bowel obstruction; management as above (4) Difficult intravenous access Is this a current diagnosis for this admission?: YesPlan: PICC line will be inserted - Time Time Spent: 50 to 70 Minutes Disposition: Admit as inpatient to medical unit GI consult Surgical consult if patient does not improve - Inpatient Certification Based on my medical assessment, after consideration of the patient's comorbidities, presenting symptoms, or acuity I expect that the services needed warrant INPATIENT care.: Yes I certify that my determination is in accordance with my understanding of Medicare's requirements for reasonable and necessary INPATIENT services [42 CFR 412.3e].: Yes Medical Necessity: Need for Pain Control, Need for IV Antibiotics
[2016-05-04] MEDS ORDERED: POTASSI CL 20 MEQ/50 ML RIDER 50 ML IV SCH (13:00)
[2016-05-04] MEDS ORDERED: CIPROFLOXACIN 400 MG/D5W RTU 400 MG/200 ML RTUPB IV ONE (13:00)
[2016-05-04] MEDS: HYDROMORPHONE HCL INJ/PF 2 MG/ML AMPULE IV PRN ×4 (14:07→23:29)
--- NOTE | 2016-05-04 17:15 | EKG REPORT ---
SEVERITY:- NORMAL ECG - SINUS RHYTHM : Confirmed by: Naa Douglas MD 04-May-2016 17:13:59
[2016-05-04] MEDS: METHYLPREDNISOLONE INJ 125 MG/2 ML SDV IV SCH ×2 (17:20→21:23)
[2016-05-04] MEDS: METRONIDAZOLE 500 MG/NS RTU 100 ML IV SCH ×2 (17:30→20:16)
[2016-05-04] MEDS ORDERED: ALBUTEROL SULFATE 0.083% NEB 2.5 MG/3 ML AMPUL NEB PRN (17:53)
[2016-05-04] MEDS ORDERED: ONDANSETRON 4 MG TAB.RAPDIS PO PRN (17:58)
--- NOTE | 2016-05-04 19:29 | PDOC CONSULTATION ---
Consultation Consult Date: 05/04/16 History of Present Illness Admission Date/PCP: 05/04/16 11:26 WAI TIRADO DO History of Present Illness: This is a 60-year-old patient who was admitted to the emergency room with abdominal pain, vomiting, and diarrhea. She was discharged from the hospital about two weeks ago and had been doing very well until two days ago when she started with mid and upper abdominal pain. There is constant abdominal pain with frequent exacerbations that comes in waves. She vomited a few times earlier on today and had a few episodes of diarrhea yesterday. On admission her white count was elevated at 18 with a left shift. A CT scan of the abdomen showed evidence of stricture was in the distal ileum with proximal and mid ileum dilation which were filled with fluid. This CT finding is very similar to her small bowel series performed in November 2015. She has had Crohn's for many years and follows up with Dr. Yen in [place]. She has been on Humira for the last four years and currently takes a shot every 10 days. Her last shot was about two weeks ago and she is getting a delivery tomorrow. She has had recurrent episodes of abdominal pain and vomiting that has been treated with nothing by mouth and IV fluids for a few days in the hospital. She has never had surgery Past Medical History Cardiac Medical History: Reports: Hypertension Denies: Congestive Heart Failure, Hyperlipidema, Pulmonary Embolism Pulmonary Medical History: Reports: Asthma Denies: Chronic Obstructive Pulmonary Disease (COPD) Neurological Medical History: Reports: Migraine Denies: Seizures Endocrine Medical History: Reports: Diabetes Mellitus Type 1 Denies: Diabetes Mellitus Type 2, Hyperthyroidism, Hypothyroidism GI Medical History: Reports: Crohn's Disease Denies: Cirrhosis, Hepatitis GI History Note: Terminal ileum stricture, diffusely narrow esophagus with rings rule out eosinophilic esophagitis Psychiatric Medical History: Reports: Depression Hematology: Reports: Anemia Past Surgical History Past Surgical History: Reports: Section, Orthopedic Surgery - R knee; R shoulder, Tonsillectomy Denies: Hysterectomy Social History Smoking Status: Current Some Day Smoker Last Time Smoked: 05/03/2016 Frequency of Alcohol Use: None Hx Recreational Drug Use: No Drugs: None Hx Prescription Drug Abuse: No - Advance Directive Resuscitation Status: Full Code Family History Family History: None, Reviewed & Not Pertinent Parental Family History Reviewed: No Children Family History Reviewed: NA Sibling(s) Family History Reviewed.: NA Medication/Allergy Home Medications: Adalimumab [Humira] 40 mg SQ ASDIR PRN 04/19/16 Albuterol Sulfate [Albuterol Sulfate 2.5mg/3 mL] 3 ml NEB RTTIDP PRN 04/19/16 Albuterol Sulfate [Proair HFA] 2 puff PO Q4HP PRN 04/19/16 Amlodipine Besylate [Norvasc 5 mg Tablet] 5 mg PO Q12 PRN 04/19/16 Butalb/Acetaminophen/Caffeine [Fioricet (50-325-40 mg) Tablet] 1 tab PO Q4HP PRN 04/19/16 Fluticasone Propionate [Flonase Nasal [place] 50 Mcg/[place] 16 gm] 1 spray NASL Q12 04/19/16 Fluticasone Propionate [Flovent HFA 220 mcg MDI] 2 puff PO Q12 04/19/16 Montelukast Sodium [Singulair 10 mg Tablet] 10 mg PO QPM 04/19/16 Oxycodone HCl [Oxycontin] 20 mg PO TID 04/19/16 Multivitamins W-Iron [Flintstones Chewable Multivit W/Fe Tab] 2 tab PO BID #120 tab.chew 04/21/16 Nystatin/Dexameth/Diphen [Magic Mouthwash (Omh Formula) Susp] 5 ml PO QID #120 ml 04/21/16 Ondansetron HCl [Zofran 4 mg Tablet] 1 tab PO Q6HP PRN #60 tablet 04/21/16 Promethazine HCl [Phenergan 25 mg Tablet] 25 mg PO Q4HP PRN #30 tablet 04/21/16 Fluconazole [Diflucan 100 Mg Tablet] 100 mg PO BID 05/04/16 Prednisone [Deltasone 20 mg Tablet] 20 mg PO BID 05/04/16 Allergies/Adverse Reactions: Sulfa (Sulfonamide Antibiotics) Allergy (Verified 05/04/16 04:41) Review of Systems All systems: reviewed and no additional remarkable complaints except as stated Physical Exam Vital Signs: Temp Pulse Resp BP Pulse Ox 98.2 F 86 12 127/84 H 99 05/04/16 13:51 05/04/16 13:51 05/04/16 13:51 05/04/16 13:51 05/04/16 13:51 Intake & Output 05/03/16 05/04/16 05/05/16 06:59 06:59 06:59 Weight 54.6 kg Exam: General: Patient is alert and looks well. HEENT: There is no pallor or jaundice. PERRLA. Oropharynx normal Respiratory: No chest deformity. No respiratory distress. Chest wall palpitation was unremarkable. Breath sounds were normal Cardiovascular: Heart sounds 1 and 2 normal with no murmurs. Abdominal: Not distended. Soft and nontender. Liver and spleen not palpable. No ascites demonstrated. Bowel sounds active. Rectal examination was deferred. Extremities: No edema Neurological: Alert and oriented x4. Grossly nonfocal. Normal speech Skin: No significant rash Psychological: Normal affect Results Laboratory Results: 05/04/16 12:48 Magnesium 1.6 Impressions: Guidance Fluoroscopy 05/04/16 00:00 IMPRESSION: SUCCESSFUL PLACEMENT OF A 5 FR DUAL LUMEN 39 CM PICC IN THE left basilic VEIN. Interventional Vascular Procedure 05/04/16 00:00 IMPRESSION: SUCCESSFUL PLACEMENT OF A 5 FR DUAL LUMEN 39 CM PICC IN THE left basilic VEIN. Abdomen/Pelvis CT 05/04/16 06:23 IMPRESSION: Abnormal distal ileum with alternating strictures and saccular dilatation from inflammatory bowel disease. This is similar compared to small bowel follow-through 11/24/2015 Fluid-filled distended proximal and mid ileum from partial obstruction. PICC Line Insertion 05/04/16 11:19 IMPRESSION: SUCCESSFUL PLACEMENT OF A 5 FR DUAL LUMEN 39 CM PICC IN THE left basilic VEIN. Assessment & Plan - Diagnosis (1) Intestinal obstruction Qualifiers: Intestinal obstruction type: other intestinal obstruction Qualified Code(s): K56.69 - Other intestinal obstruction Is this a current diagnosis for this admission?: YesPlan: She presents with abdominal pain with vomiting and a little bit of diarrhea. Her symptoms and radiologic findings is consistent with partial small bowel obstruction which is from her Crohn's ileitis or possibly infectious. I suspect her primary problem is the stricture with intermittent obstruction rather than active Crohn's. She is currently nothing by mouth and on IV fluids. Her abdominal swelling has actually improved. She will follow up with her compensation and benefits advisor upon discharge. She should be considered at for small bowel resection at a later date. (2) Crohn's ileitis Qualifiers: Digestive disease complication type: with intestinal obstruction Qualified Code(s): K50.012 - Crohn's disease of small intestine with intestinal obstruction Is this a current diagnosis for this admission?: YesPlan: She has been on Humira and currently is on Solu-Medrol. Again I feel her two day episode of pain and vomiting is probably from her chronic stricture with obstruction rather than acute Crohn's. She can be discharged on a 1-2 week cause of steroids while she resumes her Humira at home. (4) Abdominal pain Qualifiers: Abdominal location: generalized Qualified Code(s): R10.84 - Generalized abdominal pain Is this a current diagnosis for this admission?: Yes (5) Crohns disease Qualifiers: Gastrointestinal tract location: unspecified location Digestive disease complication type: unspecified complication Qualified Code(s): K50.919 - Crohn's disease, unspecified, with unspecified complications Is this a current diagnosis for this admission?: Yes (6) Benign esophageal stricture Is this a current diagnosis for this admission?: YesPlan: She has diffuse narrowing of her esophagus with multiple rings. She did not tolerate an EGD with conscious sedation during her last admission. She is supposed to have a repeat by her compensation and benefits advisor with dilation and biopsy. She probably has eosinophilic esophagitis. Her swallowing has actually been good since her last admission
[2016-05-04] MEDS: MONTELUKAST SODIUM 10 MG TABLET PO SCH (20:21)
[2016-05-04] MEDS: OXYCODONE HCL SR 10 MG TABLET PO SCH (21:22)
[2016-05-04] MEDS: MULTIVITAMINS W-IRON TABLET, CHEWABLE PO SCH (21:22)
[2016-05-04] MEDS: CIPROFLOXACIN 400 MG/D5W RTU 400 MG/200 ML RTUPB IV SCH (21:22)
[2016-05-04] MEDS: FLUTICASONE NASAL SPRAY 50 MCG/SPRY 120 SPRAY/16 GM NASL SCH (21:22)
[2016-05-04] MEDS: FLUCONAZOLE 100 MG TABLET PO SCH (21:22)
[2016-05-04] MEDS: PANTOPRAZOLE SODIUM 40 MG VIAL IV SCH (21:23)
[2016-05-04] MEDS: NYSTATIN/DEXAMETH/DIPHEN SUSP 120 ML PO SCH (21:23)
[2016-05-04] MEDS: NORMAL SALINE 10 ML SDV (SCHEDULED) IV SCH (21:31)
[2016-05-04] MEDS: POTASSIUM CHLORIDE 20 MEQ/50 ML RTU IV SCH ×2 (21:53→23:27)
[2016-05-05] MEDS: METRONIDAZOLE 500 MG/NS RTU 100 ML IV SCH ×4 (02:10→20:19)
[2016-05-05] MEDS: HYDROMORPHONE HCL INJ/PF 2 MG/ML AMPULE IV PRN ×3 (02:28→19:41)
[2016-05-05] MEDS: PROMETHAZINE HCL 25 MG TABLET PO PRN ×2 (03:45→14:02)
[2016-05-05] MEDS: METHYLPREDNISOLONE INJ 125 MG/2 ML SDV IV SCH ×3 (05:18→21:14)
[2016-05-05] MEDS: OXYCODONE HCL SR 10 MG TABLET PO SCH ×3 (05:19→21:14)
[2016-05-05 05:45] LABS: ABSOLUTE LYMPHOCYTES (AUTO) 0.6 10^3/uL (0.5-4.7); ABSOLUTE MONOCYTES (AUTO) 0.1 10^3/uL (0.1-1.4); ABSOLUTE NEUT (AUTO) 6.8 10^3/uL (1.7-8.2); BASOPHILS % (AUTO) 0.1 % (0-2); HEMOGLOBIN 10.6 g/dL (12.0-15.5); HGB HCT DIFFERENCE -1.2; LYMPHOCYTES % (AUTO) 8.1 % (13-45); MEAN CORPUSCULAR HEMOGLOBIN 27.3 pg (27.0-33.4); MEAN CORPUSCULAR HGB CONC 32.1 g/dL (32.0-36.0); MEAN CORPUSCULAR VOLUME 85 fl (80-97); MONOCYTES % (AUTO) 1.9 % (3-13); RED BLOOD COUNT 3.88 10^6/uL (3.72-5.28); RED CELL DISTRIBUTION WIDTH 24.9 % (11.5-14.0); SEGMENTED NEUTROPHILS % (AUTO) 89.9 % (42-78); WHITE BLOOD COUNT 7.5 10^3/uL (4.0-10.5)
[2016-05-05 06:07] LABS: ALANINE AMINOTRANSFERASE 33 U/L (9-52); ALBUMIN 2.9 g/dL (3.5-5.0); ALKALINE PHOSPHATASE 104 U/L (38-126); ANION GAP 7 (5-19); ASPARTATE AMINO TRANSFERASE 14 U/L (14-36); BILIRUBIN,TOTAL 0.4 mg/dL (0.2-1.3); BLOOD UREA NITROGEN 9 mg/dL (7-20); CALCIUM 9.4 mg/dL (8.4-10.2); CARBON DIOXIDE 29 mmol/L (22-30); CHLORIDE 101 mmol/L (98-107); CHOLESTEROL 187.99 mg/dL (0-200); CREATININE RESULT 0.52 mg/dL (0.52-1.25); Direct HDL 75 mg/dL (>40); GLUCOSE 119 mg/dL (75-110); POTASSIUM 4.3 mmol/L (3.6-5.0); SODIUM 137.4 mmol/L (137-145); TOTAL PROTEIN 5.2 g/dL (6.3-8.2); TRIGLYCERIDES 127 mg/dL (<150)
[2016-05-05 06:10] LABS: ANISOCYTOSIS 3+; POLYCHROMASIA SLIGHT
[2016-05-05 06:18] LABS: DIRECT LDL 59 mg/dL (<100)
[2016-05-05] MEDS ORDERED: ENOXAPARIN SODIUM INJ 40 MG/0.4 ML DISP.SYRIN SUBCUT SCH (08:00)
[2016-05-05] MEDS: CIPROFLOXACIN 400 MG/D5W RTU 400 MG/200 ML RTUPB IV SCH ×2 (10:43→21:13)
[2016-05-05] MEDS: FLUCONAZOLE 100 MG TABLET PO SCH ×2 (10:46→21:13)
[2016-05-05] MEDS: NORMAL SALINE 10 ML SDV (SCHEDULED) IV SCH ×2 (10:46→21:14)
[2016-05-05] MEDS: PANTOPRAZOLE SODIUM 40 MG VIAL IV SCH ×2 (10:46→21:14)
[2016-05-05] MEDS: FLUTICASONE NASAL SPRAY 50 MCG/SPRY 120 SPRAY/16 GM NASL SCH ×2 (10:47→21:13)
[2016-05-05] MEDS: NYSTATIN/DEXAMETH/DIPHEN SUSP 120 ML PO SCH ×4 (10:47→21:14)
[2016-05-05] MEDS: MULTIVITAMINS W-IRON TABLET, CHEWABLE PO SCH ×2 (10:48→21:13)
[2016-05-05] MEDS ORDERED: HYDROMORPHONE HCL INJ/PF 2 MG/ML AMPULE ONE (12:14)
[2016-05-05] MEDS: NORMAL SALINE 10 ML SDV (AFTER EACH USE) IV PRN (12:55)
[2016-05-05 13:46] LABS: FREE T3 2.56 pg/mL (2.77-5.27)
[2016-05-05] MEDS: MONTELUKAST SODIUM 10 MG TABLET PO SCH (18:01)
--- NOTE | 2016-05-05 18:15 | PDOC PROGRESS REPORT ---
Subjective Progress Note for:: 05/05/16 Subjective:: She is feeling a lot better Abdomen is not as distended Pain is improved She is tolerating clear liquids Leukocytosis is resolving Physical Exam Vital Signs: Temp Pulse Resp BP Pulse Ox 97.8 F 77 18 115/71 94 05/05/16 11:34 05/05/16 15:31 05/05/16 15:31 05/05/16 11:34 05/05/16 15:31 Intake & Output 05/04/16 05/05/16 05/06/16 00:59 00:59 00:59 Intake Total 500 Balance 500 Weight 54.6 kg 56.2 kg General appearance: PRESENT: no acute distress Head exam: PRESENT: atraumatic, normocephalic Eye exam: PRESENT: conjunctiva pink, EOMI, PERRLA. ABSENT: scleral icterus Neck exam: ABSENT: carotid bruit, JVD, lymphadenopathy, thyromegaly Respiratory exam: PRESENT: clear to auscultation jenaro. ABSENT: rales, rhonchi, wheezes Cardiovascular exam: PRESENT: RRR. ABSENT: diastolic murmur, rubs, systolic murmur Pulses: PRESENT: normal dorsalis pedis pul GI/Abdominal exam: PRESENT: distended - Slightly, normal bowel sounds, tenderness. ABSENT: guarding - Remains in all quadrants, rebound Rectal exam: PRESENT: deferred Extremities exam: PRESENT: full ROM. ABSENT: calf tenderness, clubbing, pedal edema Neurological exam: PRESENT: alert, awake, oriented to person, oriented to place , oriented to time, oriented to situation, CN II-XII grossly intact. ABSENT: motor sensory deficit Results Laboratory Results: 05/05/16 05:25 05/05/16 05:25 05/05/16 05/05/16 05/05/16 05:25 05:25 05:25 WBC 7.5 RBC 3.88 Hgb 10.6 L Hct 33.0 L MCV 85 MCH 27.3 MCHC 32.1 RDW 24.9 H Plt Count 330 Seg Neutrophils % 89.9 H Lymphocytes % 8.1 L Monocytes % 1.9 L Eosinophils % 0.0 Basophils % 0.1 Absolute Neutrophils 6.8 Absolute Lymphocytes 0.6 Absolute Monocytes 0.1 Absolute Eosinophils 0.0 Absolute Basophils 0.0 Sodium 137.4 Potassium 4.3 Chloride 101 Carbon Dioxide 29 Anion Gap 7 BUN 9 Creatinine 0.52 Est GFR ( Amer) > 60 Est GFR (Non-Af Amer) > 60 Glucose 119 H Calcium 9.4 Total Bilirubin 0.4 AST 14 ALT 33 Alkaline Phosphatase 104 Total Protein 5.2 L Albumin 2.9 L Triglycerides 127 Cholesterol 187.99 LDL Cholesterol Direct 59 VLDL Cholesterol 25.0 HDL Cholesterol 75 TSH 0.32 L Free T4 Free T3 pg/mL 05/05/16 05:25 WBC RBC Hgb Hct MCV MCH MCHC RDW Plt Count Seg Neutrophils % Lymphocytes % Monocytes % Eosinophils % Basophils % Absolute Neutrophils Absolute Lymphocytes Absolute Monocytes Absolute Eosinophils Absolute Basophils Sodium Potassium Chloride Carbon Dioxide Anion Gap BUN Creatinine Est GFR ( Amer) Est GFR (Non-Af Amer) Glucose Calcium Total Bilirubin AST ALT Alkaline Phosphatase Total Protein Albumin Triglycerides Cholesterol LDL Cholesterol Direct VLDL Cholesterol HDL Cholesterol TSH Free T4 1.01 Free T3 pg/mL 2.56 L Impressions: Guidance Fluoroscopy 05/04/16 00:00 IMPRESSION: SUCCESSFUL PLACEMENT OF A 5 FR DUAL LUMEN 39 CM PICC IN THE left basilic VEIN. Interventional Vascular Procedure 05/04/16 00:00 IMPRESSION: SUCCESSFUL PLACEMENT OF A 5 FR DUAL LUMEN 39 CM PICC IN THE left basilic VEIN. Abdomen/Pelvis CT 05/04/16 06:23 IMPRESSION: Abnormal distal ileum with alternating strictures and saccular dilatation from inflammatory bowel disease. This is similar compared to small bowel follow-through 11/24/2015 Fluid-filled distended proximal and mid ileum from partial obstruction. PICC Line Insertion 05/04/16 11:19 IMPRESSION: SUCCESSFUL PLACEMENT OF A 5 FR DUAL LUMEN 39 CM PICC IN THE left basilic VEIN. Assessment & Plan - Diagnosis (1) Partial small bowel obstruction Is this a current diagnosis for this admission?: Yes (2) Abdominal pain Qualifiers: Abdominal location: generalized Qualified Code(s): R10.84 - Generalized abdominal pain Is this a current diagnosis for this admission?: Yes (3) Crohns disease Qualifiers: Gastrointestinal tract location: unspecified location Digestive disease complication type: unspecified complication Qualified Code(s): K50.919 - Crohn's disease, unspecified, with unspecified complications Is this a current diagnosis for this admission?: Yes (4) Difficult intravenous access Is this a current diagnosis for this admission?: Yes - Time Time Spent with patient: Continue same management; decreased pain meds ; patient may be discharged in 24- 48 hours if she continues to improve Time Spent with patient: 15-24 minutes
[2016-05-05] MEDS: FLUTICASONE PROPIONATE HFA 110 MCG/PUFF 12 GM MDI IH SCH (21:52)
[2016-05-05] MEDS ORDERED: GLUCAGON,HUMAN RECOMB 1 MG INJ IM PRN (22:12)
[2016-05-05] MEDS ORDERED: DEXTROSE 50%-WATER 25 GM/50 ML DISP.SYRIN IV PRN ×2 (22:12)
[2016-05-05] MEDS ORDERED: DEXTROSE 40% GEL 15 GM TUBE PO PRN ×2 (22:12)
[2016-05-05] MEDS: INSULIN LISPRO 100 UNIT/ML 3 ML VIAL SUBCUT PRN (22:33)
[2016-05-06] MEDS: HYDROMORPHONE HCL INJ/PF 2 MG/ML AMPULE IV PRN ×6 (00:27→23:56)
[2016-05-06] MEDS: METRONIDAZOLE 500 MG/NS RTU 100 ML IV SCH ×2 (02:39→08:11)
[2016-05-06] MEDS: METHYLPREDNISOLONE INJ 125 MG/2 ML SDV IV SCH ×2 (05:44→22:18)
[2016-05-06] MEDS: OXYCODONE HCL SR 10 MG TABLET PO SCH ×3 (06:38→22:18)
[2016-05-06] MEDS: FLUCONAZOLE 100 MG TABLET PO SCH ×2 (09:57→22:18)
[2016-05-06] MEDS: CIPROFLOXACIN 400 MG/D5W RTU 400 MG/200 ML RTUPB IV SCH (09:57)
[2016-05-06] MEDS: FLUTICASONE NASAL SPRAY 50 MCG/SPRY 120 SPRAY/16 GM NASL SCH ×2 (09:58→22:23)
[2016-05-06] MEDS: NORMAL SALINE 10 ML SDV (SCHEDULED) IV SCH ×2 (09:58→22:23)
[2016-05-06] MEDS: FLUTICASONE PROPIONATE HFA 110 MCG/PUFF 12 GM MDI IH SCH ×2 (10:00→22:15)
[2016-05-06] MEDS: PANTOPRAZOLE SODIUM 40 MG VIAL IV SCH ×2 (10:00→22:18)
[2016-05-06] MEDS: NYSTATIN/DEXAMETH/DIPHEN SUSP 120 ML PO SCH ×4 (10:01→22:23)
[2016-05-06] MEDS: MULTIVITAMINS W-IRON TABLET, CHEWABLE PO SCH ×2 (10:01→22:18)
[2016-05-06] MEDS: INSULIN LISPRO 100 UNIT/ML 3 ML VIAL SUBCUT PRN ×2 (12:08→23:00)
--- NOTE | 2016-05-06 13:21 | PDOC PROGRESS REPORT ---
Subjective Progress Note for:: 05/06/16 Subjective:: Patient is doing a lot better She is tolerating by mouth clear liquids The abdomen is still somewhat distended, and tender on palpation but improved There is swelling of the left thigh and mild edema Physical Exam Vital Signs: Temp Pulse Resp BP Pulse Ox 98.1 F 72 20 107/67 96 05/06/16 13:00 05/06/16 13:00 05/06/16 13:00 05/06/16 13:00 05/06/16 13:00 Intake & Output 05/05/16 05/06/16 05/07/16 00:59 00:59 00:59 Intake Total 2260 320 Output Total 500 Balance 2260 -180 Weight 54.6 kg 56.2 kg 57.4 kg General appearance: PRESENT: no acute distress, well-developed, well-nourished Eye exam: PRESENT: conjunctiva pink, EOMI, PERRLA. ABSENT: scleral icterus Neck exam: ABSENT: carotid bruit, JVD, lymphadenopathy, thyromegaly Respiratory exam: PRESENT: clear to auscultation jenaro. ABSENT: rales, rhonchi, wheezes Cardiovascular exam: PRESENT: RRR. ABSENT: diastolic murmur, rubs, systolic murmur GI/Abdominal exam: PRESENT: distended, tenderness. ABSENT: guarding, rebound, rigid Extremities exam: PRESENT: other - Left lower extremity thigh is edematous and swollen Neurological exam: PRESENT: alert, awake, oriented to person, oriented to place , oriented to time, oriented to situation, CN II-XII grossly intact. ABSENT: motor sensory deficit Results Laboratory Results: 05/05/16 05:25 05/05/16 05:25 05/05/16 05:25 Free T4 1.01 Free T3 pg/mL 2.56 L Impressions: Guidance Fluoroscopy 05/04/16 00:00 IMPRESSION: SUCCESSFUL PLACEMENT OF A 5 FR DUAL LUMEN 39 CM PICC IN THE left basilic VEIN. Interventional Vascular Procedure 05/04/16 00:00 IMPRESSION: SUCCESSFUL PLACEMENT OF A 5 FR DUAL LUMEN 39 CM PICC IN THE left basilic VEIN. Abdomen/Pelvis CT 05/04/16 06:23 IMPRESSION: Abnormal distal ileum with alternating strictures and saccular dilatation from inflammatory bowel disease. This is similar compared to small bowel follow-through 11/24/2015 Fluid-filled distended proximal and mid ileum from partial obstruction. PICC Line Insertion 05/04/16 11:19 IMPRESSION: SUCCESSFUL PLACEMENT OF A 5 FR DUAL LUMEN 39 CM PICC IN THE left basilic VEIN. Assessment & Plan - Diagnosis (1) Partial small bowel obstruction Is this a current diagnosis for this admission?: YesPlan: Secondary to Crohn's exacerbation and strictures of the small bowel Continue the present management KUB will be performed today, we'll increase diet if the partial obstruction is rate is resolved (2) Abdominal pain Qualifiers: Abdominal location: generalized Qualified Code(s): R10.84 - Generalized abdominal pain Is this a current diagnosis for this admission?: Yes (3) Crohns disease Qualifiers: Gastrointestinal tract location: unspecified location Digestive disease complication type: unspecified complication Qualified Code(s): K50.919 - Crohn's disease, unspecified, with unspecified complications Is this a current diagnosis for this admission?: Yes (4) Difficult intravenous access Is this a current diagnosis for this admission?: Yes (5) Edema of left lower extremity Is this a current diagnosis for this admission?: YesPlan: DVT studies were ordered Patient is on Lovenox prophylaxis - Time Time Spent with patient: Patient will likely remain another to 3 days as an inpatient until her symptoms have resolved Time Spent with patient: 25-34 minutes
[2016-05-06] MEDS: METRONIDAZOLE 500 MG TABLET PO SCH ×2 (14:06→22:13)
[2016-05-06] MEDS: NORMAL SALINE 10 ML SDV (AFTER EACH USE) IV PRN (15:28)
[2016-05-06] MEDS ORDERED: ENOXAPARIN SODIUM INJ 60 MG/0.6 ML DISP.SYRIN SUBCUT ONE (15:30)
[2016-05-06] MEDS: ENOXAPARIN SODIUM INJ 60 MG/0.6 ML DISP.SYRIN SUBCUT SCH ×3 (15:38→22:18)
[2016-05-06] MEDS: SIMETHICONE 80 MG TAB.CHEW PO PRN ×2 (15:39→23:04)
[2016-05-06] MEDS: ALBUTEROL SULFATE HFA (90 MCG/PUFF) 200 PUFF/8.5 GM MDI IH PRN (18:06)
[2016-05-06] MEDS: MONTELUKAST SODIUM 10 MG TABLET PO SCH (18:07)
[2016-05-06] MEDS ORDERED: CIPROFLOXACIN HCL 500 MG TABLET PO SCH (22:00)
[2016-05-07] MEDS: METRONIDAZOLE 500 MG TABLET PO SCH ×4 (03:56→22:51)
[2016-05-07] MEDS: HYDROMORPHONE HCL INJ/PF 2 MG/ML AMPULE IV PRN ×5 (03:56→23:05)
[2016-05-07] MEDS: OXYCODONE HCL SR 10 MG TABLET PO SCH ×3 (05:53→22:51)
[2016-05-07] MEDS: PROMETHAZINE HCL 25 MG TABLET PO PRN (06:45)
[2016-05-07 07:22] LABS: HEMATOCRIT 30.4 % (36.0-47.0); HEMOGLOBIN 9.6 g/dL (12.0-15.5); HGB HCT DIFFERENCE -1.6; MEAN CORPUSCULAR HEMOGLOBIN 27.2 pg (27.0-33.4); MEAN CORPUSCULAR HGB CONC 31.7 g/dL (32.0-36.0); MEAN CORPUSCULAR VOLUME 86 fl (80-97); RED BLOOD COUNT 3.55 10^6/uL (3.72-5.28); RED CELL DISTRIBUTION WIDTH 24.2 % (11.5-14.0)
[2016-05-07 07:37] LABS: ANION GAP 8 (5-19); BLOOD UREA NITROGEN 15 mg/dL (7-20); CALCIUM 9.1 mg/dL (8.4-10.2); CARBON DIOXIDE 29 mmol/L (22-30); CHLORIDE 102 mmol/L (98-107); CREATININE RESULT 0.71 mg/dL (0.52-1.25); GLUCOSE 118 mg/dL (75-110); POTASSIUM 3.5 mmol/L (3.6-5.0)
[2016-05-07 07:56] LABS: WHITE BLOOD COUNT 16.6 10^3/uL (4.0-10.5)
[2016-05-07] MEDS: FLUTICASONE NASAL SPRAY 50 MCG/SPRY 120 SPRAY/16 GM NASL SCH ×2 (11:17→22:51)
[2016-05-07] MEDS: ALBUTEROL SULFATE HFA (90 MCG/PUFF) 200 PUFF/8.5 GM MDI IH PRN (11:19)
[2016-05-07] MEDS: MULTIVITAMINS W-IRON TABLET, CHEWABLE PO SCH ×2 (11:20→22:51)
[2016-05-07] MEDS: LEVOFLOXACIN 750 MG TABLET PO SCH (11:20)
[2016-05-07] MEDS: FLUCONAZOLE 100 MG TABLET PO SCH ×2 (11:21→22:51)
[2016-05-07] MEDS: FLUTICASONE PROPIONATE HFA 110 MCG/PUFF 12 GM MDI IH SCH ×2 (11:24→22:50)
[2016-05-07] MEDS: NORMAL SALINE 10 ML SDV (SCHEDULED) IV SCH ×2 (11:25→22:51)
[2016-05-07] MEDS: ENOXAPARIN SODIUM INJ 60 MG/0.6 ML DISP.SYRIN SUBCUT SCH ×2 (11:25→22:51)
[2016-05-07] MEDS: METHYLPREDNISOLONE INJ 125 MG/2 ML SDV IV SCH (11:26)
[2016-05-07] MEDS: PANTOPRAZOLE SODIUM 40 MG VIAL IV SCH (11:26)
[2016-05-07] MEDS: NYSTATIN/DEXAMETH/DIPHEN SUSP 120 ML PO SCH ×4 (11:26→22:51)
--- NOTE | 2016-05-07 12:14 | PDOC PROGRESS REPORT ---
Subjective Progress Note for:: 05/07/16 Subjective:: Patient still has significant edema of her left lower extremity No shortness of breath she is alert awake She did have a bowel movement and her abdomen is not as distended Physical Exam Vital Signs: Temp Pulse Resp BP Pulse Ox 98.4 F 73 16 124/69 93 05/07/16 07:55 05/07/16 12:10 05/07/16 12:10 05/07/16 07:55 05/07/16 12:10 Intake & Output 05/06/16 05/07/16 05/08/16 00:59 00:59 00:59 Intake Total 2260 970 700 Output Total 1300 1200 Balance 2260 -330 -500 Weight 56.2 kg 57.4 kg 58.5 kg General appearance: PRESENT: no acute distress, thin Head exam: PRESENT: atraumatic, normocephalic Eye exam: PRESENT: conjunctiva pink, EOMI, PERRLA. ABSENT: scleral icterus Neck exam: ABSENT: carotid bruit, JVD, lymphadenopathy, thyromegaly Respiratory exam: PRESENT: clear to auscultation jenaro. ABSENT: rales, rhonchi, wheezes Cardiovascular exam: PRESENT: RRR. ABSENT: diastolic murmur, rubs, systolic murmur GI/Abdominal exam: PRESENT: normal bowel sounds, soft. ABSENT: distended, guarding, mass, organolmegaly, rebound, tenderness Extremities exam: PRESENT: other - Left thigh edema trace swollen tender on palpation Results Laboratory Results: 05/07/16 06:25 05/07/16 06:25 05/07/16 05/07/16 05/07/16 06:25 06:25 07:44 WBC 16.6 H D RBC 3.55 L Hgb 9.6 L Hct 30.4 L MCV 86 MCH 27.2 MCHC 31.7 L RDW 24.2 H Plt Count 274 Sodium 139.0 Potassium 3.5 L Chloride 102 Carbon Dioxide 29 Anion Gap 8 BUN 15 Creatinine 0.71 Est GFR ( Amer) > 60 Est GFR (Non-Af Amer) > 60 Glucose 118 H Calcium 9.1 Stool Occult Blood POSITIVE Impressions: Guidance Fluoroscopy 05/04/16 00:00 IMPRESSION: SUCCESSFUL PLACEMENT OF A 5 FR DUAL LUMEN 39 CM PICC IN THE left basilic VEIN. Interventional Vascular Procedure 05/04/16 00:00 IMPRESSION: SUCCESSFUL PLACEMENT OF A 5 FR DUAL LUMEN 39 CM PICC IN THE left basilic VEIN. Abdomen/Pelvis CT 05/04/16 06:23 IMPRESSION: Abnormal distal ileum with alternating strictures and saccular dilatation from inflammatory bowel disease. This is similar compared to small bowel follow-through 11/24/2015 Fluid-filled distended proximal and mid ileum from partial obstruction. PICC Line Insertion 05/04/16 11:19 IMPRESSION: SUCCESSFUL PLACEMENT OF A 5 FR DUAL LUMEN 39 CM PICC IN THE left basilic VEIN. Venous Doppler Study 05/06/16 13:15 IMPRESSION: DIFFUSE DEEP VENOUS THROMBOSIS THROUGHOUT THE LEFT THIGH INVOLVING THE POPLITEAL, FEMORAL, AND COMMON FEMORAL VEINS. SUPERFICIAL VENOUS THROMBOSIS IN THE LEFT THIGH ALONG THE GREATER SAPHENOUS VEIN. KUB X-Ray 05/06/16 13:16 IMPRESSION: Nonspecific bowel gas pattern Assessment & Plan - Diagnosis (1) Partial small bowel obstruction Is this a current diagnosis for this admission?: YesPlan: Has resolved we will advance diet (2) Abdominal pain Qualifiers: Abdominal location: generalized Qualified Code(s): R10.84 - Generalized abdominal pain Is this a current diagnosis for this admission?: YesPlan: Resolved (3) Crohns disease Qualifiers: Gastrointestinal tract location: unspecified location Digestive disease complication type: unspecified complication Qualified Code(s): K50.919 - Crohn's disease, unspecified, with unspecified complications Is this a current diagnosis for this admission?: YesPlan: Acute exacerbation Decrease steroids to continue Levaquin and Flagyl for another week at home (4) Difficult intravenous access Is this a current diagnosis for this admission?: Yes (5) Edema of left lower extremity Is this a current diagnosis for this admission?: YesPlan: DVT left lower extremity Continue Lovenox H&H has been stable Discussed the case with Dr. Daley will follow up patient in the office We'll switch the patient to xarelto in a.m. prior to discharge - Time Time Spent with patient: Discharge in a.m. if stable we will repeat CBC Time Spent with patient: 15-24 minutes
[2016-05-07 15:11] LABS: APPEARANCE,URINE CLEAR; BILIRUBIN,URINE NEGATIVE (NEGATIVE); GLUCOSE, URINE 50 mg/dL (NEGATIVE); KETONES,URINE NEGATIVE (NEGATIVE); LEUKOCYTE ESTERASE,URINE NEGATIVE (NEGATIVE); NITRITE,URINE NEGATIVE (NEGATIVE); PROTEIN,URINE NEGATIVE (NEGATIVE); URINE SPECIFIC GRAVITY 1.012; UROBILINOGEN,URINE NEGATIVE mg/dL (<2.0)
[2016-05-07 17:14] LABS: PROTHROMBIN TIME 13.2 SEC (11.4-15.4)
[2016-05-07] MEDS: MONTELUKAST SODIUM 10 MG TABLET PO SCH (18:40)
[2016-05-07] MEDS: SIMETHICONE 80 MG TAB.CHEW PO PRN (20:21)
[2016-05-07] MEDS ORDERED: WARFARIN SODIUM 5 MG TABLET PO SCH (22:00)
[2016-05-08] MEDS: HYDROMORPHONE HCL INJ/PF 2 MG/ML AMPULE IV PRN ×4 (04:32→22:02)
[2016-05-08 04:56] LABS: APPEARANCE,URINE CLEAR; BILIRUBIN,URINE NEGATIVE (NEGATIVE); GLUCOSE, URINE 50 mg/dL (NEGATIVE); KETONES,URINE NEGATIVE (NEGATIVE); LEUKOCYTE ESTERASE,URINE TRACE (NEGATIVE); NITRITE,URINE NEGATIVE (NEGATIVE); PROTEIN,URINE NEGATIVE (NEGATIVE); UROBILINOGEN,URINE NEGATIVE mg/dL (<2.0)
[2016-05-08] MEDS: METRONIDAZOLE 500 MG TABLET PO SCH ×3 (05:14→21:27)
[2016-05-08] MEDS: OXYCODONE HCL SR 10 MG TABLET PO SCH ×3 (05:14→21:26)
[2016-05-08 05:47] LABS: HEMATOCRIT 29.5 % (36.0-47.0); HEMOGLOBIN 9.4 g/dL (12.0-15.5); HGB HCT DIFFERENCE -1.3; MEAN CORPUSCULAR HEMOGLOBIN 27.6 pg (27.0-33.4); MEAN CORPUSCULAR HGB CONC 31.9 g/dL (32.0-36.0); MEAN CORPUSCULAR VOLUME 86 fl (80-97); RED BLOOD COUNT 3.42 10^6/uL (3.72-5.28); RED CELL DISTRIBUTION WIDTH 23.8 % (11.5-14.0); WHITE BLOOD COUNT 12.6 10^3/uL (4.0-10.5)
[2016-05-08] MEDS: PROMETHAZINE HCL 25 MG TABLET PO PRN (08:25)
[2016-05-08] MEDS: FLUTICASONE PROPIONATE HFA 110 MCG/PUFF 12 GM MDI IH SCH ×2 (10:00→23:17)
[2016-05-08] MEDS: ENOXAPARIN SODIUM INJ 60 MG/0.6 ML DISP.SYRIN SUBCUT SCH ×2 (11:00→21:23)
[2016-05-08] MEDS: PREDNISONE 20 MG TABLET PO SCH (11:01)
[2016-05-08] MEDS: FLUCONAZOLE 100 MG TABLET PO SCH ×2 (11:01→21:27)
[2016-05-08] MEDS: FLUTICASONE NASAL SPRAY 50 MCG/SPRY 120 SPRAY/16 GM NASL SCH ×2 (11:02→21:25)
[2016-05-08] MEDS: MULTIVITAMINS W-IRON TABLET, CHEWABLE PO SCH ×2 (11:04→21:28)
[2016-05-08] MEDS: LEVOFLOXACIN 750 MG TABLET PO SCH (11:04)
[2016-05-08] MEDS: NYSTATIN/DEXAMETH/DIPHEN SUSP 120 ML PO SCH ×4 (11:05→21:26)
[2016-05-08] MEDS: NORMAL SALINE 10 ML SDV (SCHEDULED) IV SCH ×2 (11:06→21:32)
--- NOTE | 2016-05-08 11:08 | PDOC CONSULTATION ---
Consultation Consult Date: 05/08/16 Attending physician:: ARNIE ROSA Consult reason:: New onset DVT History of Present Illness Admission Date/PCP: 05/04/16 11:26 WAI TIRADO DO Patient complains of: LLE swelling pain History of Present Illness: 60-year-old female with known history of severe Crohn's disease, with multiple strictures, who presents with abdominal pain, hematochezia, she had been on anticoagulation with Xarelto those discontinued on last admission because of GI bleed. I saw her on the last admission and treated her for anemia with transfusion and IV iron. We decided against anticoagulation as there was no recurrent thrombosis. She presented again on this admission because of abdominal pain, and nausea, however about 2 days into the admission she began having swelling of the left lower stump, she had lower extremity Doppler done which indicated extensive DVT. She has been placed on Lovenox, yesterday was started on Coumadin. Past Medical History Cardiac Medical History: Reports: Hypertension Denies: Congestive Heart Failure, Hyperlipidema, Pulmonary Embolism Pulmonary Medical History: Reports: Asthma Denies: Chronic Obstructive Pulmonary Disease (COPD) Neurological Medical History: Reports: Migraine Denies: Seizures Endocrine Medical History: Reports: Diabetes Mellitus Type 1 Denies: Diabetes Mellitus Type 2, Hyperthyroidism, Hypothyroidism GI Medical History: Reports: Crohn's Disease Denies: Cirrhosis, Hepatitis Psychiatric Medical History: Reports: Depression Hematology: Reports: Anemia Past Surgical History Past Surgical History: Reports: Section, Orthopedic Surgery - R knee; R shoulder, Tonsillectomy Denies: Hysterectomy Social History Smoking Status: Current Some Day Smoker Last Time Smoked: 05/03/2016 Frequency of Alcohol Use: None Hx Recreational Drug Use: No Drugs: None Hx Prescription Drug Abuse: No - Advance Directive Resuscitation Status: Full Code Family History Family History: None, Reviewed & Not Pertinent Parental Family History Reviewed: Yes Children Family History Reviewed: Yes Sibling(s) Family History Reviewed.: Yes Medication/Allergy Home Medications: Adalimumab [Humira] 40 mg SQ ASDIR PRN 04/19/16 Albuterol Sulfate [Albuterol Sulfate 2.5mg/3 mL] 3 ml NEB RTTIDP PRN 04/19/16 Albuterol Sulfate [Proair HFA] 2 puff PO Q4HP PRN 04/19/16 Amlodipine Besylate [Norvasc 5 mg Tablet] 5 mg PO Q12 PRN 04/19/16 Butalb/Acetaminophen/Caffeine [Fioricet (50-325-40 mg) Tablet] 1 tab PO Q4HP PRN 04/19/16 Fluticasone Propionate [Flonase Nasal [place] 50 Mcg/[place] 16 gm] 1 spray NASL Q12 04/19/16 Fluticasone Propionate [Flovent HFA 220 mcg MDI] 2 puff PO Q12 04/19/16 Montelukast Sodium [Singulair 10 mg Tablet] 10 mg PO QPM 04/19/16 Oxycodone HCl [Oxycontin] 20 mg PO TID 04/19/16 Multivitamins W-Iron [Flintstones Chewable Multivit W/Fe Tab] 2 tab PO BID #120 tab.chew 04/21/16 Nystatin/Dexameth/Diphen [Magic Mouthwash (Omh Formula) Susp] 5 ml PO QID #120 ml 04/21/16 Ondansetron HCl [Zofran 4 mg Tablet] 1 tab PO Q6HP PRN #60 tablet 04/21/16 Promethazine HCl [Phenergan 25 mg Tablet] 25 mg PO Q4HP PRN #30 tablet 04/21/16 Fluconazole [Diflucan 100 Mg Tablet] 100 mg PO BID 05/04/16 Prednisone [Deltasone 20 mg Tablet] 20 mg PO BID 05/04/16 Allergies/Adverse Reactions: Sulfa (Sulfonamide Antibiotics) Allergy (Verified 05/04/16 04:41) Review of Systems Constitutional: ABSENT: chills, fever(s), headache(s), weight gain, weight loss Eyes: ABSENT: visual disturbances Ears: ABSENT: hearing changes Cardiovascular: ABSENT: chest pain, dyspnea on exertion, edema, orthropnea, palpitations Respiratory: ABSENT: cough, hemoptysis Gastrointestinal: ABSENT: abdominal pain, constipation, diarrhea, hematemesis, hematochezia, nausea, vomiting Genitourinary: ABSENT: dysuria, hematuria Musculoskeletal: ABSENT: joint swelling Integumentary: ABSENT: rash, wounds Neurological: ABSENT: abnormal gait, abnormal speech, confusion, dizziness, focal weakness, syncope Psychiatric: ABSENT: anxiety, depression, homidical ideation, suicidal ideation Endocrine: ABSENT: cold intolerance, heat intolerance, polydipsia, polyuria Hematologic/Lymphatic: ABSENT: easy bleeding, easy bruising Physical Exam Vital Signs: Temp Pulse Resp BP Pulse Ox 97.9 F 70 16 122/63 95 05/08/16 07:31 05/08/16 07:31 05/08/16 07:31 05/08/16 07:31 05/08/16 07:31 Intake & Output 05/07/16 05/08/16 05/09/16 06:59 06:59 06:59 Intake Total 1350 1340 Output Total 1999 Balance -650 1340 Weight 58.5 kg 59.2 kg General appearance: PRESENT: no acute distress, well-developed, well-nourished Head exam: PRESENT: atraumatic, normocephalic Eye exam: PRESENT: conjunctiva pink, EOMI, PERRLA. ABSENT: scleral icterus Ear exam: PRESENT: normal external ear exam Mouth exam: PRESENT: moist, tongue midline Neck exam: ABSENT: carotid bruit, JVD, lymphadenopathy, thyromegaly Respiratory exam: PRESENT: clear to auscultation jenaro. ABSENT: rales, rhonchi, wheezes Cardiovascular exam: PRESENT: RRR. ABSENT: diastolic murmur, rubs, systolic murmur Pulses: PRESENT: normal dorsalis pedis pul Vascular exam: PRESENT: normal capillary refill GI/Abdominal exam: PRESENT: normal bowel sounds, soft. ABSENT: distended, guarding, mass, organolmegaly, rebound, tenderness Rectal exam: PRESENT: deferred Extremities exam: PRESENT: full ROM. ABSENT: calf tenderness, clubbing, pedal edema Neurological exam: PRESENT: alert, awake, oriented to person, oriented to place , oriented to time, oriented to situation, CN II-XII grossly intact. ABSENT: motor sensory deficit Psychiatric exam: PRESENT: appropriate affect, normal mood. ABSENT: homicidal ideation, suicidal ideation Skin exam: PRESENT: dry, intact, warm. ABSENT: cyanosis, rash Results Laboratory Results: 05/08/16 05:20 05/07/16 06:25 05/07/16 05/07/16 05/08/16 07:44 14:40 04:30 WBC RBC Hgb Hct MCV MCH MCHC RDW Plt Count Urine Color YELLOW YELLOW Urine Appearance CLEAR CLEAR Urine pH 5.0 6.0 Ur Specific [place] 1.012 1.030 Urine Protein NEGATIVE NEGATIVE Urine Glucose (UA) 50 H 50 H Urine Ketones NEGATIVE NEGATIVE Urine Blood NEGATIVE NEGATIVE Urine Nitrite NEGATIVE NEGATIVE Ur Leukocyte Esterase NEGATIVE TRACE H Urine WBC (Auto) 1 0 Urine RBC (Auto) 1 0 Stool Occult Blood POSITIVE 05/08/16 05:20 WBC 12.6 H RBC 3.42 L Hgb 9.4 L Hct 29.5 L MCV 86 MCH 27.6 MCHC 31.9 L RDW 23.8 H Plt Count 252 Urine Color Urine Appearance Urine pH Ur Specific [place] Urine Protein Urine Glucose (UA) Urine Ketones Urine Blood Urine Nitrite Ur Leukocyte Esterase Urine WBC (Auto) Urine RBC (Auto) Stool Occult Blood Impressions: Guidance Fluoroscopy 05/04/16 00:00 IMPRESSION: SUCCESSFUL PLACEMENT OF A 5 FR DUAL LUMEN 39 CM PICC IN THE left basilic VEIN. Interventional Vascular Procedure 05/04/16 00:00 IMPRESSION: SUCCESSFUL PLACEMENT OF A 5 FR DUAL LUMEN 39 CM PICC IN THE left basilic VEIN. Abdomen/Pelvis CT 05/04/16 06:23 IMPRESSION: Abnormal distal ileum with alternating strictures and saccular dilatation from inflammatory bowel disease. This is similar compared to small bowel follow-through 11/24/2015 Fluid-filled distended proximal and mid ileum from partial obstruction. PICC Line Insertion 05/04/16 11:19 IMPRESSION: SUCCESSFUL PLACEMENT OF A 5 FR DUAL LUMEN 39 CM PICC IN THE left basilic VEIN. Venous Doppler Study 05/06/16 13:15 IMPRESSION: DIFFUSE DEEP VENOUS THROMBOSIS THROUGHOUT THE LEFT THIGH INVOLVING THE POPLITEAL, FEMORAL, AND COMMON FEMORAL VEINS. SUPERFICIAL VENOUS THROMBOSIS IN THE LEFT THIGH ALONG THE GREATER SAPHENOUS VEIN. KUB X-Ray 05/06/16 13:16 IMPRESSION: Nonspecific bowel gas pattern Assessment & Plan - Diagnosis (1) Leg DVT (deep venous thromboembolism), acute Qualifiers: Laterality: left Qualified Code(s): I82.402 - Acute embolism and thrombosis of unspecified deep veins of left lower extremity Is this a current diagnosis for this admission?: YesPlan: New onset left lower extremity DVT, today we initiated and antiphospholipid workup, she may be best served with anticoagulation with either Lovenox or Arixtra as opposed to Coumadin. Given her Crohn's disease this may be difficult to regulate. She is comfortable giving herself Arixtra shots. We will need to make sure that it is covered by her insurance. We will start the Arixtra shots and hold on Coumadin for now. We will plan on checking with her pharmacy to see what the cost would be. We will manage this as an outpatient for her. She will probably require lifelong anticoagulation, but we will need to follow-up her labs as well as an outpatient. (2) Iron deficiency anemia due to chronic blood loss Is this a current diagnosis for this admission?: YesPlan: She has had anemia in the past, her hemoglobin is stable on this admission, we will need to monitor this closely while on anticoagulation. She has a combination of iron deficiency anemia as well as anemia of chronic disease. - Time Time Spent: Greater than 70 Minutes Critical Time spent with patient: 35 or more minutes - Inpatient Certification Based on my medical assessment, after consideration of the patient's comorbidities, presenting symptoms, or acuity I expect that the services needed warrant INPATIENT care.: Yes I certify that my determination is in accordance with my understanding of Medicare's requirements for reasonable and necessary INPATIENT services [42 CFR 412.3e].: Yes Medical Necessity: Need For Continuous Telemetry Monitoring, Need for Pain Control, Risk of Complication if Not Cared For in Hospital
--- NOTE | 2016-05-08 11:10 | PDOC PROGRESS REPORT ---
Subjective Progress Note for:: 05/08/16 Subjective:: Patient is still complaining of pain in the left thigh otherwise chest no shortness of breath chest pain alert and awake She is now eating and tolerating food well Abdominal distention has resolved Physical Exam Vital Signs: Temp Pulse Resp BP Pulse Ox 97.9 F 70 16 122/63 95 05/08/16 07:31 05/08/16 07:31 05/08/16 07:31 05/08/16 07:31 05/08/16 07:31 Intake & Output 05/07/16 05/08/16 05/09/16 00:59 00:59 00:59 Intake Total 970 1820 220 Output Total 1300 1200 Balance -330 620 220 Weight 57.4 kg 58.5 kg 59.2 kg General appearance: PRESENT: no acute distress, well-developed, well-nourished Head exam: PRESENT: atraumatic, normocephalic Eye exam: PRESENT: conjunctiva pink, EOMI, PERRLA. ABSENT: scleral icterus Ear exam: PRESENT: normal external ear exam Mouth exam: PRESENT: moist, tongue midline Neck exam: ABSENT: carotid bruit, JVD, lymphadenopathy, thyromegaly Respiratory exam: PRESENT: clear to auscultation jenaro. ABSENT: rales, rhonchi, wheezes Cardiovascular exam: PRESENT: RRR. ABSENT: diastolic murmur, rubs, systolic murmur Pulses: PRESENT: normal dorsalis pedis pul Vascular exam: PRESENT: normal capillary refill GI/Abdominal exam: PRESENT: normal bowel sounds, soft. ABSENT: distended, guarding, mass, organolmegaly, rebound, tenderness Rectal exam: PRESENT: deferred Extremities exam: PRESENT: full ROM, other - Left thigh still swollen and edematous. ABSENT: calf tenderness, clubbing, pedal edema Neurological exam: PRESENT: alert, awake, oriented to person, oriented to place , oriented to time, oriented to situation, CN II-XII grossly intact. ABSENT: motor sensory deficit Psychiatric exam: PRESENT: appropriate affect, normal mood. ABSENT: homicidal ideation, suicidal ideation Skin exam: PRESENT: dry, intact, warm. ABSENT: cyanosis, rash Results Laboratory Results: 05/08/16 05:20 05/07/16 06:25 05/07/16 05/07/16 05/08/16 07:44 14:40 04:30 WBC RBC Hgb Hct MCV MCH MCHC RDW Plt Count Urine Color YELLOW YELLOW Urine Appearance CLEAR CLEAR Urine pH 5.0 6.0 Ur Specific [place] 1.012 1.030 Urine Protein NEGATIVE NEGATIVE Urine Glucose (UA) 50 H 50 H Urine Ketones NEGATIVE NEGATIVE Urine Blood NEGATIVE NEGATIVE Urine Nitrite NEGATIVE NEGATIVE Ur Leukocyte Esterase NEGATIVE TRACE H Urine WBC (Auto) 1 0 Urine RBC (Auto) 1 0 Stool Occult Blood POSITIVE 05/08/16 05:20 WBC 12.6 H RBC 3.42 L Hgb 9.4 L Hct 29.5 L MCV 86 MCH 27.6 MCHC 31.9 L RDW 23.8 H Plt Count 252 Urine Color Urine Appearance Urine pH Ur Specific [place] Urine Protein Urine Glucose (UA) Urine Ketones Urine Blood Urine Nitrite Ur Leukocyte Esterase Urine WBC (Auto) Urine RBC (Auto) Stool Occult Blood Impressions: Guidance Fluoroscopy 05/04/16 00:00 IMPRESSION: SUCCESSFUL PLACEMENT OF A 5 FR DUAL LUMEN 39 CM PICC IN THE left basilic VEIN. Interventional Vascular Procedure 05/04/16 00:00 IMPRESSION: SUCCESSFUL PLACEMENT OF A 5 FR DUAL LUMEN 39 CM PICC IN THE left basilic VEIN. Abdomen/Pelvis CT 05/04/16 06:23 IMPRESSION: Abnormal distal ileum with alternating strictures and saccular dilatation from inflammatory bowel disease. This is similar compared to small bowel follow-through 11/24/2015 Fluid-filled distended proximal and mid ileum from partial obstruction. PICC Line Insertion 05/04/16 11:19 IMPRESSION: SUCCESSFUL PLACEMENT OF A 5 FR DUAL LUMEN 39 CM PICC IN THE left basilic VEIN. Venous Doppler Study 05/06/16 13:15 IMPRESSION: DIFFUSE DEEP VENOUS THROMBOSIS THROUGHOUT THE LEFT THIGH INVOLVING THE POPLITEAL, FEMORAL, AND COMMON FEMORAL VEINS. SUPERFICIAL VENOUS THROMBOSIS IN THE LEFT THIGH ALONG THE GREATER SAPHENOUS VEIN. KUB X-Ray 05/06/16 13:16 IMPRESSION: Nonspecific bowel gas pattern Assessment & Plan - Diagnosis (1) Partial small bowel obstruction Is this a current diagnosis for this admission?: Yes (2) Abdominal pain Qualifiers: Qualified Code(s): R10.84 - Generalized abdominal pain Is this a current diagnosis for this admission?: Yes (3) Crohns disease Qualifiers: Qualified Code(s): K50.919 - Crohn's disease, unspecified, with unspecified complications Is this a current diagnosis for this admission?: Yes (4) Difficult intravenous access Is this a current diagnosis for this admission?: Yes (5) Edema of left lower extremity Is this a current diagnosis for this admission?: Yes - Time Time Spent with patient: Continue present management Antiphospholipid antibodies and lupus anticoagulant pending Dr. Daley is consulting and suggested that patient be kept on Arixtra subcutaneous; We will contact the pharmacy to make sure that her insurance will cover We will keep the patient as an inpatient until Tuesday and monitor H&H Time Spent with patient: 25-34 minutes
[2016-05-08] MEDS: MONTELUKAST SODIUM 10 MG TABLET PO SCH (18:57)
[2016-05-08] MEDS: ALBUTEROL SULFATE HFA (90 MCG/PUFF) 200 PUFF/8.5 GM MDI IH PRN ×2 (21:31→22:00)
[2016-05-09] MEDS: HYDROMORPHONE HCL INJ/PF 2 MG/ML AMPULE IV PRN ×3 (04:24→12:51)
[2016-05-09] MEDS: METRONIDAZOLE 500 MG TABLET PO SCH ×2 (05:51→14:10)
[2016-05-09] MEDS: OXYCODONE HCL SR 10 MG TABLET PO SCH ×2 (05:51→14:09)
[2016-05-09] MEDS: PROMETHAZINE HCL 25 MG TABLET PO PRN (08:03)
[2016-05-09] MEDS: FLUCONAZOLE 100 MG TABLET PO SCH (09:55)
[2016-05-09] MEDS: PREDNISONE 20 MG TABLET PO SCH (09:56)
[2016-05-09] MEDS: MULTIVITAMINS W-IRON TABLET, CHEWABLE PO SCH (09:56)
[2016-05-09] MEDS: LEVOFLOXACIN 750 MG TABLET PO SCH (09:56)
[2016-05-09] MEDS: FLUTICASONE NASAL SPRAY 50 MCG/SPRY 120 SPRAY/16 GM NASL SCH (09:57)
[2016-05-09] MEDS: NYSTATIN/DEXAMETH/DIPHEN SUSP 120 ML PO SCH (09:57)
[2016-05-09] MEDS: ALBUTEROL SULFATE HFA (90 MCG/PUFF) 200 PUFF/8.5 GM MDI IH PRN (09:57)
[2016-05-09] MEDS: ENOXAPARIN SODIUM INJ 60 MG/0.6 ML DISP.SYRIN SUBCUT SCH (10:01)
[2016-05-09] MEDS: SIMETHICONE 80 MG TAB.CHEW PO PRN (10:04)
[2016-05-09] MEDS: NORMAL SALINE 10 ML SDV (SCHEDULED) IV SCH (10:05)
[2016-05-09 13:00] VITALS: BP 118/73
--- NOTE | 2016-05-09 14:45 | PDOC DISCHARGE SUMMARY ---
General - Admit/Disc Date/PCP Admission Date/Primary Care Provider: 05/04/16 11:26 WAI CELESTINO, Discharge Date: 05/09/16 - Discharge Diagnosis (1) Partial small bowel obstruction Is this a current diagnosis for this admission?: YesSummary: Patient was admitted with abdominal pain and evidence of partial small bowel obstruction Partial small bowel obstruction was thought to be secondary to multiple strictures visualized in the small bowel Patient was initially kept nothing by mouth, then clear liquids were introduced Diet was increased and the bowel obstruction resolved (2) Abdominal pain Is this a current diagnosis for this admission?: Yes (3) Crohns disease Is this a current diagnosis for this admission?: YesSummary: Acute exacerbation Patient did have diarrhea leukocytosis abdominal pain She was treated with steroids Cipro and Flagyl; patient's condition improved And she was discharged on a slow steroid taper (4) Difficult intravenous access Is this a current diagnosis for this admission?: Yes (5) Deep vein thrombosis (DVT) of left lower extremity Is this a current diagnosis for this admission?: YesSummary: On day 2 of her hospitalization patient developed swelling and pain left thigh She had evidence of DVT Lovenox was initiated patient was discharged on Arixtra with follow-up with Dr. Daley (6) Hypercoagulable state Is this a current diagnosis for this admission?: YesSummary: He shouldn't had a recent history of arterial embolus and she was started she is left BKA She had been on Arixtra until 3 weeks prior to this admission when she developed severe GI bleed Arixtra had to be discontinued During this hospitalization patient had venous thrombosis She likely has hypercoagulability syndrome and a workup for antiphospholipid syndrome was initiated Patient was discharged on Arixtra 7.5 mg subcutaneous daily Patient will need lifetime lifelong anticoagulation 05/08/16 05/08/16 11:47 11:47 Thrombin Time Pending Lupus Anticoag aPTT Pending Dil Blaze Viper Venom Pending Lupus Anticoag Interp Pending Beta-2-GPI IgG Ab Pending Beta-2-GPI IgA Ab Pending Beta-2-GPI IgM Ab Pending Anti-Cardiolipin IgG Ab Pending Anti-Cardiolipin IgA Ab Pending Anti-Cardiolipin IgM Ab Pending (7) GI bleed Is this a current diagnosis for this admission?: YesSummary: 05/04/16 05/07/16 05/08/16 05:45 07:44 05:20 Hgb 10.8 L 9.4 L Hct 34.2 L 29.5 L Stool Occult Blood POSITIVE Patient's H&H remained stable during hospitalization Certainly of concern that she was guaiac-positive; Serial H&H should be performed as an outpatient - Additional Information Resuscitation Status: Full Code Discharge Diet: As Tolerated Discharge Activity: Activity As Tolerated Home Medications: Adalimumab [Humira] 40 mg SQ ASDIR PRN 04/19/16 Albuterol Sulfate [Albuterol Sulfate 2.5mg/3 mL] 3 ml NEB RTTIDP PRN 04/19/16 Albuterol Sulfate [Proair HFA] 2 puff PO Q4HP PRN 04/19/16 Amlodipine Besylate [Norvasc 5 mg Tablet] 5 mg PO Q12 PRN 04/19/16 Butalb/Acetaminophen/Caffeine [Fioricet (50-325-40 mg) Tablet] 1 tab PO Q4HP PRN 04/19/16 Fluticasone Propionate [Flonase Nasal [place] 50 Mcg/[place] 16 gm] 1 spray NASL Q12 04/19/16 Fluticasone Propionate [Flovent HFA 220 mcg MDI] 2 puff PO Q12 04/19/16 Montelukast Sodium [Singulair 10 mg Tablet] 10 mg PO QPM 04/19/16 Oxycodone HCl [Oxycontin] 20 mg PO TID 04/19/16 Multivitamins W-Iron [Flintstones Chewable Multivit W/Fe Tab] 2 tab PO BID #120 tab.chew 04/21/16 Nystatin/Dexameth/Diphen [Magic Mouthwash] 5 ml PO QID #120 ml 04/21/16 Ondansetron HCl [Zofran 4 mg Tablet] 1 tab PO Q6HP PRN #60 tablet 04/21/16 Promethazine HCl [Phenergan 25 mg Tablet] 25 mg PO Q4HP PRN #30 tablet 04/21/16 Fluconazole [Diflucan 100 mg Tablet] 100 mg PO BID 05/04/16 Fondaparinux Sodium [Arixtra Inj 7.5 mg/0.6 ml Disp. Syrin] 7.5 mg SUBCUT DAILY #30 disp.syrin 05/08/16 Acidoph/L.bulg/Bif.b/S.thermop [Bacid Caplet] 1 each PO BID #20 tablet 05/09/16 Levofloxacin [Levaquin 750 mg Tablet] 750 mg PO DAILY #5 tablet 05/09/16 Metronidazole [Flagyl 500 mg Tablet] 500 mg PO Q8 #15 tablet 05/09/16 Prednisone 60 mg PO ASDIR #100 tablet 05/09/16 History of Present Illness Patient complains of: Abdominal pain History of Present Illness: RAI VOGT is a 60 year old female presents with 2 day history of diffuse abdominal pain and cramping along with nausea typical 40s had a past with Crohn's disease. She thinks her last exacerbation this bad was several months ago. She reports following Dr. Yen for this locally. She also had a recent admission with GI bleed thought secondary to Xarelto she is on no anticoagulation. She reports diarrhea for the past 2 days thinks she might of had some blood in it but denies melena. She also states she thinks she has urinary tract infection and reports 3 days of urinary urgency frequency and urinary incontinence. She reports temperature she thinks about 100.2 at home yesterday. He reports occasional nonproductive cough but denies shortness breath, chest pain, or back pain. He is status post recent left BKA in [place] and reports no recent problems with her surgical site. Upon evaluation in the ED patient was found to have been extremely tender abdomen; A CT abdomen and pelvis suggestive of partial small bowel obstruction The white blood count was 18,000 Patient was subsequently admitted under hospitalist service for further evaluation and care Cipro Flagyl methylprednisolone were initiated PICC line to be inserted A GI consult was called for Dr. Pepper Hospital Course Hospital Course: See above Physical Exam Vital Signs: Temp Pulse Resp BP Pulse Ox 97.4 F 77 16 118/73 98 05/09/16 12:59 05/09/16 12:59 05/09/16 12:59 05/09/16 12:59 05/09/16 12:59 Intake & Output 05/08/16 05/09/16 05/10/16 00:59 00:59 00:59 Intake Total 1820 1320 540 Output Total 1200 1100 Balance 620 1320 -560 Weight 58.5 kg 59.2 kg 59.2 kg General appearance: PRESENT: no acute distress, well-developed, well-nourished Head exam: PRESENT: atraumatic, normocephalic Eye exam: PRESENT: conjunctiva pink, EOMI, PERRLA. ABSENT: scleral icterus Ear exam: PRESENT: normal external ear exam Mouth exam: PRESENT: moist, tongue midline Neck exam: ABSENT: carotid bruit, JVD, lymphadenopathy, thyromegaly Respiratory exam: PRESENT: clear to auscultation jenaro. ABSENT: rales, rhonchi, wheezes Cardiovascular exam: PRESENT: RRR. ABSENT: diastolic murmur, rubs, systolic murmur Pulses: PRESENT: normal dorsalis pedis pul Vascular exam: PRESENT: normal capillary refill GI/Abdominal exam: PRESENT: normal bowel sounds, soft. ABSENT: distended, guarding, mass, organolmegaly, rebound, tenderness Rectal exam: PRESENT: deferred Extremities exam: PRESENT: full ROM, other - Left BKA 3+ edema of left thigh. ABSENT: calf tenderness, clubbing, pedal edema Neurological exam: PRESENT: alert, awake, oriented to person, oriented to place , oriented to time, oriented to situation, CN II-XII grossly intact. ABSENT: motor sensory deficit Psychiatric exam: PRESENT: appropriate affect, normal mood. ABSENT: homicidal ideation, suicidal ideation Skin exam: PRESENT: dry, intact, warm. ABSENT: cyanosis, rash Results Laboratory Results: 05/08/16 05:20 05/07/16 06:25 05/04/16 12:48 Blood Blood Culture - Final NO GROWTH IN 5 DAYS Labs- Last Values WBC 12.6 10^3/uL (4.0-10.5) H 05/08/16 05:20 RBC 3.42 10^6/uL (3.72-5.28) L 05/08/16 05:20 Hgb 9.4 g/dL (12.0-15.5) L 05/08/16 05:20 Hct 29.5 % (36.0-47.0) L 05/08/16 05:20 MCV 86 fl (80-97) 05/08/16 05:20 MCH 27.6 pg (27.0-33.4) 05/08/16 05:20 MCHC 31.9 g/dL (32.0-36.0) L 05/08/16 05:20 RDW 23.8 % (11.5-14.0) H 05/08/16 05:20 Plt Count 252 10^3/uL (150-450) 05/08/16 05:20 Seg Neutrophils % 89.9 % (42-78) H 05/05/16 05:25 Lymphocytes % 8.1 % (13-45) L 05/05/16 05:25 Monocytes % 1.9 % (3-13) L 05/05/16 05:25 Eosinophils % 0.0 % (0-6) 05/05/16 05:25 Basophils % 0.1 % (0-2) 05/05/16 05:25 Absolute Neutrophils 6.8 10^3/uL (1.7-8.2) 05/05/16 05:25 Absolute Lymphocytes 0.6 10^3/uL (0.5-4.7) 05/05/16 05:25 Absolute Monocytes 0.1 10^3/uL (0.1-1.4) 05/05/16 05:25 Absolute Eosinophils 0.0 10^3/uL (0.0-0.6) 05/05/16 05:25 Absolute Basophils 0.0 10^3/uL (0.0-0.2) 05/05/16 05:25 Toxic Granulation SLIGHT 05/04/16 05:45 Toxic Vacuolation PRESENT 05/04/16 05:45 Platelet Estimate Cancelled 05/04/16 05:11 Platelet Comment ADEQUATE 05/05/16 05:25 Polychromasia SLIGHT 05/05/16 05:25 Hypochromasia SLIGHT 05/04/16 05:45 Poikilocytosis SLIGHT 05/04/16 05:45 Basophilic Stippling PRESENT 05/04/16 05:45 Anisocytosis 3+ 05/05/16 05:25 Tear Drop Cells SLIGHT 05/04/16 05:45 Ovalocytes SLIGHT 05/04/16 05:45 PT 13.2 SEC (11.4-15.4) 05/07/16 16:45 INR 0.97 05/07/16 16:45 Sodium 139.0 mmol/L (137-145) 05/07/16 06:25 Potassium 3.5 mmol/L (3.6-5.0) L 05/07/16 06:25 Chloride 102 mmol/L (98-107) 05/07/16 06:25 Carbon Dioxide 29 mmol/L (22-30) 05/07/16 06:25 Anion Gap 8 (5-19) 05/07/16 06:25 BUN 15 mg/dL (7-20) 05/07/16 06:25 Creatinine 0.71 mg/dL (0.52-1.25) 05/07/16 06:25 Est GFR ( Amer) > 60 (>60) 05/07/16 06:25 Est GFR (Non-Af Amer) > 60 (>60) 05/07/16 06:25 Glucose 118 mg/dL (75-110) H 05/07/16 06:25 POC Glucose 92 mg/dL (70-110) 05/09/16 05:54 Hemoglobin A1c % 4.2 % (4.7-6.0) L 05/05/16 05:25 Calcium 9.1 mg/dL (8.4-10.2) 05/07/16 06:25 Magnesium 1.6 mg/dL (1.6-2.3) 05/04/16 12:48 Total Bilirubin 0.4 mg/dL (0.2-1.3) 05/05/16 05:25 Direct Bilirubin 0.0 mg/dL (0.0-0.3) 05/05/16 05:25 AST 14 U/L (14-36) 05/05/16 05:25 ALT 33 U/L (9-52) 05/05/16 05:25 Alkaline Phosphatase 104 U/L (38-126) 05/05/16 05:25 Total Protein 5.2 g/dL (6.3-8.2) L 05/05/16 05:25 Albumin 2.9 g/dL (3.5-5.0) L 05/05/16 05:25 Triglycerides 127 mg/dL (<150) 05/05/16 05:25 Cholesterol 187.99 mg/dL (0-200) 05/05/16 05:25 LDL Cholesterol Direct 59 mg/dL (<100) 05/05/16 05:25 VLDL Cholesterol 25.0 mg/dL (10-31) 05/05/16 05:25 HDL Cholesterol 75 mg/dL (>40) 05/05/16 05:25 Lipase 51.6 U/L (23-300) 05/04/16 05:11 TSH 0.32 uIU/mL (0.47-4.68) L 05/05/16 05:25 Free T4 1.01 ng/dL (0.78-2.19) 05/05/16 05:25 Free T3 pg/mL 2.56 pg/mL (2.77-5.27) L 05/05/16 05:25 Urine Color YELLOW 05/08/16 04:30 Urine Appearance CLEAR 05/08/16 04:30 Urine pH 6.0 (5.0-9.0) 05/08/16 04:30 Ur Specific [place] 1.030 05/08/16 04:30 Urine Protein NEGATIVE mg/dL (NEGATIVE) 05/08/16 04:30 Urine Glucose (UA) 50 mg/dL (NEGATIVE) H 05/08/16 04:30 Urine Ketones NEGATIVE mg/dL (NEGATIVE) 05/08/16 04:30 Urine Blood NEGATIVE (NEGATIVE) 05/08/16 04:30 Urine Nitrite NEGATIVE (NEGATIVE) 05/08/16 04:30 Urine Bilirubin NEGATIVE (NEGATIVE) 05/08/16 04:30 Urine Urobilinogen NEGATIVE mg/dL (<2.0) 05/08/16 04:30 Ur Leukocyte Esterase TRACE (NEGATIVE) H 05/08/16 04:30 Urine WBC (Auto) 0 /HPF 05/08/16 04:30 Urine RBC (Auto) 0 /HPF 05/08/16 04:30 Urine Bacteria (Auto) TRACE /HPF 05/04/16 05:18 Squamous Epi Cells Auto 1 /HPF 05/08/16 04:30 Urine Mucus (Auto) RARE /LPF 05/07/16 14:40 Urine Ascorbic Acid 40 (NEGATIVE) H 05/08/16 04:30 Stool Occult Blood POSITIVE (NEGATIVE) 05/07/16 07:44 Slides for Path Review Cancelled 05/04/16 05:11 EKG Comments: . SINUS RHYTHM Impressions: Guidance Fluoroscopy 05/04/16 00:00 IMPRESSION: SUCCESSFUL PLACEMENT OF A 5 FR DUAL LUMEN 39 CM PICC IN THE left basilic VEIN. Interventional Vascular Procedure 05/04/16 00:00 IMPRESSION: SUCCESSFUL PLACEMENT OF A 5 FR DUAL LUMEN 39 CM PICC IN THE left basilic VEIN. Abdomen/Pelvis CT 05/04/16 06:23 IMPRESSION: Abnormal distal ileum with alternating strictures and saccular dilatation from inflammatory bowel disease. This is similar compared to small bowel follow-through 11/24/2015 Fluid-filled distended proximal and mid ileum from partial obstruction. PICC Line Insertion 05/04/16 11:19 IMPRESSION: SUCCESSFUL PLACEMENT OF A 5 FR DUAL LUMEN 39 CM PICC IN THE left basilic VEIN. Venous Doppler Study 05/06/16 13:15 IMPRESSION: DIFFUSE DEEP VENOUS THROMBOSIS THROUGHOUT THE LEFT THIGH INVOLVING THE POPLITEAL, FEMORAL, AND COMMON FEMORAL VEINS. SUPERFICIAL VENOUS THROMBOSIS IN THE LEFT THIGH ALONG THE GREATER SAPHENOUS VEIN. KUB X-Ray 05/06/16 13:16 IMPRESSION: Nonspecific bowel gas pattern
[2016-05-11 00:36] LABS: DILUTE RUSSELL VIPOR VENOM 40.8 sec (0.0-44.0); THROMBIN TIME 22.2 sec (0.0-20.9)
[2016-05-11 09:22] LABS: LUPUS PANEL INTERPRETATION Comment: (.); PTT-LA 30.4 sec (0.0-43.6)
[2016-05-12 07:17] LABS: BETA-2 GLYCOPROTEIN I IGA AB <9 (0-25)
== END 2016-05-09 14:15 | disposition home or self-care (01) | DRG 389 ==
LOC: ER 04:32 → EH 10:32 → UNDOADMIN 10:32 → EH 11:26 → 4N 12:38
PROVIDERS: ADMIT Emergency Medicine; ATTEND Emergency Medicine
PROC: 02HV33Z Insertion of Infusion Device into Superior Vena Cava, Percutaneous Approach (ICD-10-PCS; principal; 2016-05-04)
PROC: B5181ZA Fluoroscopy of Superior Vena Cava using Low Osmolar Contrast, Guidance (ICD-10-PCS; 2016-05-04)
PROC: B548ZZA Ultrasonography of Superior Vena Cava, Guidance (ICD-10-PCS; 2016-05-04)
DX: K56.69 Other intestinal obstruction (principal); I82.412 Acute embolism and thrombosis of left femoral vein; I82.432 Acute embolism and thrombosis of left popliteal vein; I82.812 Embolism and thrombosis of superficial veins of left lower extremity; K50.012 Crohn's disease of small intestine with intestinal obstruction; K92.2 Gastrointestinal hemorrhage, unspecified; D50.0 Iron deficiency anemia secondary to blood loss (chronic); K22.2 Esophageal obstruction; I10 Essential (primary) hypertension; G43.909 Migraine, unspecified, not intractable, without status migrainosus; E10.9 Type 1 diabetes mellitus without complications; F32.9 Major depressive disorder, single episode, unspecified; Z79.899 Other long term (current) drug therapy; F17.200 Nicotine dependence, unspecified, uncomplicated; Z88.1 Allergy status to other antibiotic agents; Z89.512 Acquired absence of left leg below knee
CPT/HCPCS: 36415; 36569; 74000; 74177; 76937; 77001; 80048; 80053; 80061; 81001; 82272; 82962; 83036; 83520; 83690; 83735; 84439; 84443; 84481; 85025; 85027; 85610; 86146; 86147; 86225; 86235; 87040; 87086; 87088; 87186; 93005; 93010; 93971; 94640; 96365; 96366; 96375; 99285; J0744; J1170; J1642; J1650; J1815; J2270; J2550; J2930; J3480; J3490; J7030; J7512; S0164

== ENCOUNTER 2016-05-28 11:29 | Outpatient (CLI) | payer MEDICARE, MEDICAID ==
[~2016-05-28 11:29] MED LIST: FERRIC CARBOXYMALTOSE 750 MG in NORMAL SALINE 250 ML IV PRN; NORMAL SALINE 250 ML IV PRN
[2016-05-28 12:34] VITALS: BP 137/80
== END 2016-05-28 12:41 | disposition home or self-care (01) ==
LOC: II 11:29 → 5TH 11:30 → II 12:41
PROVIDERS: ATTEND Internal Medicine
PROC: 3E033GC Introduction of Other Therapeutic Substance into Peripheral Vein, Percutaneous Approach (ICD-10-PCS; principal; 2016-05-28)
DX: D63.8 Anemia in other chronic diseases classified elsewhere (principal); K90.9 Intestinal malabsorption, unspecified
CPT/HCPCS: 96374; J7050; J1439; 96365

== ENCOUNTER 2016-05-29 17:01 | Inpatient (IN) | payer MEDICARE, MEDICAID ==
[~2016-05-29 17:01] MED LIST changes: -FERRIC CARBOXYMALTOSE 750 MG in NORMAL SALINE 250 ML IV PRN; -NORMAL SALINE 250 ML IV PRN; +SUCCINYLCHOLINE CHLORIDE INJ 200 MG/10 ML VIAL ONE
--- NOTE | 2016-05-29 17:05 | ER Document Report ---
ED General <DARREN LEDEZMA - Last Filed: 05/29/16 18:59> - General Time seen by provider: 17:02 Mode of Arrival: Medic Information source: Emergency Med Personnel TRAVEL OUTSIDE OF THE [place] IN LAST 30 DAYS: No - HPI Onset: Other - see HPI note Associated symptoms: Productive cough, Fever, Shortness of breath Similar symptoms previously: No Recently seen / treated by doctor: No <RANI MAHONEY - Last Filed: 05/29/16 19:34> - General Stated Complaint: ABDOMINAL PAIN Notes: Patient is a 60 year old female presenting to the emergency department for abdominal pain, hypoxia, and fever. Patient was tachycardic at 157 and hypoxic at 76% O2 saturation when EMS arrived. Patient got to 95% O2 saturation with 12 liters of O2. Patient also had a fever of 103.5 F; daughter told EMS that she had been using Tylenol for her fever and EMS gave 975 mg Tylenol and 400 mL normal saline. EMS reports the patient had deficated diarrhea on herself, had abdominal pain in all 4 quadrants (the left side was more firm than the right), had shallow breathing, and exacerbation of abdominal pain with deep breaths. Patient has a history of diabetes mellitus and had a blood glucose level of 145. Patient was admitted on 05/04/16 for abdominal pain related to crohn's disease and a small bowel perforation. Patient was treated non surgically for her bowel perforation and discharged on 05/09/16. Patient just recently had a left BKA completed in February. Patient had blood work completed and was being evaluated by Dr. Daley yesterday. Patient's primary care physician is Dr. Patel. Patient is allergic to sulfa. (RANI MAHONEY) - Related Data Allergies/Adverse Reactions: Sulfa (Sulfonamide Antibiotics) Allergy (Verified 05/04/16 04:41) Past Medical History - General Information source: Patient, [facility] Records - Social History Smoking Status: Current Every Day Smoker Cigarette use (# per day): Yes Frequency of alcohol use: Occasional Family History: None - Past Medical History Cardiac Medical History: Reports: Hx Hypertension Pulmonary Medical History: Reports: Hx Asthma Neurological Medical History: Reports: Hx Migraine Endocrine Medical History: Reports: Hx Diabetes Mellitus Type 1 GI Medical History: Reports: Hx Crohn's Disease Psychiatric Medical History: Reports: Hx Depression Past Surgical History: Reports: Hx Section, Hx Orthopedic Surgery - R knee; R shoulder; L BKA, Hx Tonsillectomy - Immunizations Hx Diphtheria, Pertussis, Tetanus Vaccination: Yes <RANI MAHONEY - Last Filed: 05/29/16 19:34> Review of Systems - Review of Systems Constitutional: See HPI, Fever EENT: No symptoms reported Cardiovascular: See HPI, Heart racing Respiratory: See HPI, Cough, Short of breath Gastrointestinal: See HPI, Abdominal pain, Diarrhea Genitourinary: No symptoms reported Female Genitourinary: No symptoms reported Musculoskeletal: No symptoms reported Skin: No symptoms reported Hematologic/Lymphatic: No symptoms reported Neurological/Psychological: No symptoms reported -: Yes All other systems reviewed and negative <RANI MAHONEY - Last Filed: 05/29/16 19:34> Physical Exam - Vital signs Interpretation: Tachypneic, Febrile <DARREN LEDEZMA - Last Filed: 05/29/16 18:59> <RANI MAHONEY - Last Filed: 05/29/16 19:34> - Vital signs Vitals: Resp BP Pulse Ox 32 H 82/53 L 100 05/29/16 17:08 05/29/16 17:08 05/29/16 17:08 - Notes Notes: GENERAL: VS as per nursing doc. Ill-appearing, well-nourished and in mild acute distress. "Rattling" cough noted HEAD: Atraumatic, normocephalic. EYES: Pupils equal round and reactive to light, extraocular movements intact, sclera anicteric, no conjunctival injection or discharge. ENT: Nares patent, oropharynx clear without exudates, Dry mucous membranes. Airway patent. NECK: Normal range of motion, supple without lymphadenopathy. LUNGS: Scattered rales with decreased left sided breath sounds. HEART: Tachycardic without murmurs. Weak but equal radial pulses ABDOMEN: Soft, tender diffusely over the right abdomen with hypoactive bowel sounds. No guarding, no rebound but grown slightly. No masses appreciated. BACK: No CVA tenderness. EXTREMITIES: Normal range of motion, no calf tenderness, no edema. There is a left BKA noted with well-healing incision line. There is slight distal discoloration only and no evidence of infection NEUROLOGICAL: Cranial nerves grossly intact. Normal speech. Normal sensory and motor exams. PSYCH: Ill, poor eye contact SKIN: Hot, dry, normal turgor, no lesions noted. (DARREN LEDEZMA) Course - Laboratory Result Diagrams: 05/29/16 17:20 05/29/16 17:20 - Diagnostic Test Radiology reviewed: Image reviewed, Reports reviewed - Large Left Pneumonia with effusion - EKG Interpretation by Me EKG shows normal: Sinus rhythm Rate: Tachycardia Rhythm: NSR <DARREN LEDEZMA - Last Filed: 05/29/16 18:59> - Laboratory Result Diagrams: 05/29/16 17:20 05/29/16 17:20 - Consults Dr. Ignacio Time consulted: 19:20 <RANI MAHONEY - Last Filed: 05/29/16 19:34> - Re-evaluation Re-evalutation: 05/29/16 18:07 Patient is profoundly hypokalemic. We're having some difficulty with further access. With her hypotension we will emergently place a central line for potassium replacement as well as antibiotics, and if she is still hypotensive, vasopressors. 05/29/16 18:53 Central line was placed in the right IJ with ultrasound. Patient during the procedure went into an episode of SVT so the catheter was withdrawn slightly making it difficult to apply a bowel pats without complete removal. All ports flushed well and withdrew blood well. SVT abated with adenosine 6 mg intravenously. Blood pressure has remained low despite 30 mL per kilogram bolus. We will start Levophed at this point. On reexam though her cap refill is still less than 3 seconds with weak radial pulse. Tachycardia has improved to a rate of 110. Mean arterial pressure of 57. Patient maintaining airway currently. A timeout was done prior to placement of the central line and consent was obtained from the patient but with (DARREN LEDEZMA) - Vital Signs Vital signs: Temp Pulse Resp BP Pulse Ox 100.7 F H 28 H 61/44 L 100 05/29/16 19:14 05/29/16 19:14 05/29/16 19:14 05/29/16 19:14 - Laboratory Laboratory results interpreted by me: 05/29/16 05/29/16 05/29/16 17:20 17:20 17:20 WBC 20.0 H RBC 3.61 L Hgb 9.7 L Hct 31.2 L MCHC 31.3 L RDW 20.8 H Band Neutrophils % 8 H Lymphocytes % (Manual) 12 L Abs Neuts (Manual) 16.0 H Potassium 2.2 L* Lactic Acid 4.1 H Magnesium Total Protein 4.7 L Albumin 2.6 L 05/29/16 17:20 WBC RBC Hgb Hct MCHC RDW Band Neutrophils % Lymphocytes % (Manual) Abs Neuts (Manual) Potassium Lactic Acid Magnesium 1.2 L* Total Protein Albumin - EKG Interpretation by Me Additional EKG results interpreted by me: 05/29/16 18:[address] abnormalities in addition to the tachycardia. QRS is normal. (DARREN LEDEZMA) - Consults Dr. Ignacio Reason for consultation: 05/29/16 19:[address] Ignacio for possible admission for patient; he is not logged into his phone yet. 05/29/16 19:[address] Ignacio again for possible admission; after consulting with him, he will admit the patient. (RANI MAHONEY) Procedures <DARREN LEDEZMA - Last Filed: 05/29/16 18:59> - Central Line Right Internal jugular Time completed: 18:40 Consent obtained: Yes Central line pre-insertion: Sterile PPE donned, Chloraprep applied, Sterile drapes applied Central line lumen type: Triple Anesthetic type: 1% Lidocaine mL's of anesthesia: 3 Ultrasound guided: Yes Line secured with sutures: Yes Central line post-insertion: Blood return from lumens, Sutured, Sterile dressing applied Number of attempts: 1 Complications: No <RANI MAHONEY - Last Filed: 05/29/16 19:34> - Central Line Right Internal jugular Notes: 05/29/16 18:41 Chest x-ray to confirm is pending; biopatch was not applied due to withdraw length due to episode of SVT (RANI MAHONEY) Critical Care Note - Critical Care Note Total time excluding time spent on procedures (mins): 42 <DARREN LEDEZMA - Last Filed: 05/29/16 18:59> Discharge - Discharge Admitting Provider: Hospitalist Unit Admitted: ICU <DARREN LEDEZMA - Last Filed: 05/29/16 18:59> <RANI MAHONEY - Last Filed: 05/29/16 19:34> - Discharge Clinical Impression: Sepsis associated hypotension, Pneumonia, Hypokalemia Condition: Serious Scribe Documentation - Scribe Written by Scribe:: Rani Mahoney 05/29/16 17:40 acting as scribe for :: Jonathan <RANI MAHONEY - Last Filed: 05/29/16 19:34>
[2016-05-29] MEDS ORDERED: PIPERACILLIN/TAZOBACTAM 4.5 GM VIAL IV ONE ×2 (17:06→23:06)
[2016-05-29] MEDS ORDERED: VANCOMYCIN HCL INJ 1000 MG VIAL IV ONE (17:06)
[2016-05-29] MEDS ORDERED: NORMAL SALINE 1000 ML 2,000 ML IV ONE ×3 (17:07→21:30)
[2016-05-29 17:44] LABS: HEMATOCRIT 31.2 % (36.0-47.0); HEMOGLOBIN 9.7 g/dL (12.0-15.5); HGB HCT DIFFERENCE -2.1; MEAN CORPUSCULAR HGB CONC 31.3 g/dL (32.0-36.0); MEAN CORPUSCULAR VOLUME 86 fl (80-97); RED BLOOD COUNT 3.61 10^6/uL (3.72-5.28); RED CELL DISTRIBUTION WIDTH 20.8 % (11.5-14.0)
[2016-05-29 18:00] LABS: PROTHROMBIN TIME 14.3 SEC (11.4-15.4)
[2016-05-29 18:02] LABS: ALANINE AMINOTRANSFERASE 39 U/L (9-52); ALBUMIN 2.6 g/dL (3.5-5.0); ALKALINE PHOSPHATASE 110 U/L (38-126); ANION GAP 13 (5-19); ASPARTATE AMINO TRANSFERASE 31 U/L (14-36); BILIRUBIN,DIRECT 0.3 mg/dL (0.0-0.4); BILIRUBIN,TOTAL 0.6 mg/dL (0.2-1.3); BLOOD UREA NITROGEN 15 mg/dL (7-20); CALCIUM 8.7 mg/dL (8.4-10.2); CARBON DIOXIDE 30 mmol/L (22-30); CHLORIDE 99 mmol/L (98-107); CREATININE RESULT 0.78 mg/dL (0.52-1.25); GLUCOSE 76 mg/dL (75-110); SODIUM 141.5 mmol/L (137-145); TOTAL PROTEIN 4.7 g/dL (6.3-8.2)
[2016-05-29 18:04] LABS: POTASSIUM 2.2 mmol/L (3.6-5.0)
[2016-05-29 18:12] LABS: APPEARANCE,URINE SLIGHTLY-CLOUDY; BILIRUBIN,URINE NEGATIVE (NEGATIVE); GLUCOSE, URINE NEGATIVE (NEGATIVE); KETONES,URINE NEGATIVE (NEGATIVE); LEUKOCYTE ESTERASE,URINE NEGATIVE (NEGATIVE); NITRITE,URINE NEGATIVE (NEGATIVE); PROTEIN,URINE NEGATIVE (NEGATIVE); URINE SPECIFIC GRAVITY 1.006; UROBILINOGEN,URINE NEGATIVE mg/dL (<2.0)
[2016-05-29 18:13] LABS: BAND NEUTROPHILS % (MANUAL) 8 % (3-5); BASOPHILS % (MANUAL) 0 % (0-2); EOSINOPHILS % (MANUAL) 2 % (0-6); LYMPHOCYTES % (MANUAL) 12 % (13-45); NUCLEATED RED BLOOD CELLS 1 /100 WBC (0); TOTAL CELLS COUNTED 100
[2016-05-29 18:14] LABS: TOXIC GRANULATION SLIGHT
[2016-05-29 18:15] LABS: ANISOCYTOSIS 2+; HYPOCHROMASIA SLIGHT; POIKILOCYTOSIS SLIGHT; TEAR DROP CELLS SLIGHT; TOXIC VACUOLATION PRESENT
[2016-05-29] MEDS ORDERED: ADENOSINE INJ/PF 6 MG/2 ML SDV IV ONE (18:34)
[2016-05-29] MEDS ORDERED: MAGNESIUM SULFATE/D5W 1 GM/100 ML RTUPB IV ONE ×6 (18:36→23:00)
[2016-05-29] MEDS ORDERED: POTASSI CL 20 MEQ/50 ML RIDER 20 MEQ/50 ML RTUPB IV ONE ×2 (18:37→20:44)
[2016-05-29] MEDS ORDERED: DEXTROSE 5%-WATER 250 ML with NOREPINEPHRINE BITARTRATE 4 MG IV PRN ×2 (19:04)
[2016-05-29] MEDS ORDERED: MAGNESIUM SULFATE PF/INJ 40 MEQ/10 ML SDV IV ONE (19:04)
[2016-05-29] MEDS ORDERED: NOREPINEPHRINE BITARTRATE INJ/PF 4 MG/4 ML SDV IV ONE ×2 (19:22→22:53)
[2016-05-29 19:59] LABS: ARTERIAL BLOOD BASE EXCESS 1.2 mmol/L; ARTERIAL BLOOD O2 SATURATION 94.4 % (94-98)
[2016-05-29] MEDS ORDERED: NORMAL SALINE 1000 ML 1,000 ML IV ONE (20:10)
[2016-05-29] MEDS ORDERED: PHENYLEPHRINE HCL INJ/PF 10 MG/1 ML SDV ONE ×2 (20:34→22:53)
[2016-05-29] MEDS: DEXTROSE 5%-WATER 250 ML with NOREPINEPHRINE BITARTRATE 4 MG IV PRN ×2 (20:35)
--- NOTE | 2016-05-29 20:44 | EKG REPORT ---
SEVERITY:- ABNORMAL ECG - SINUS TACHYCARDIA REPOL ABNRM SUGGESTS ISCHEMIA, DIFFUSE LEADS : Confirmed by: Jhon Ledezma 29-May-2016 20:44:29
[2016-05-29] MEDS: DEXTROSE 5%-WATER 250 ML with PHENYLEPHRINE HCL 40 MG IV PRN ×2 (20:45)
[2016-05-29] MEDS ORDERED: PROPOFOL 100 ML IV ONE (20:46)
[2016-05-29] MEDS ORDERED: PHARMACY COMMUNICATION ORDER MC NR (21:00)
[2016-05-29] MEDS ORDERED: POTASSI CL 20 MEQ/50 ML RIDER 20 MEQ/50 ML RTUPB IV SCH (21:00)
[2016-05-29] MEDS ORDERED: NORMAL SALINE 1000 ML 1,000 ML IV PRN (21:13)
[2016-05-29] MEDS ORDERED: GLUCAGON,HUMAN RECOMB 1 MG INJ SUBCUT PRN (21:13)
[2016-05-29] MEDS ORDERED: DEXTROSE 40% GEL 15 GM TUBE PO PRN ×2 (21:13)
[2016-05-29] MEDS ORDERED: DEXTROSE 50%-WATER 25 GM/50 ML DISP.SYRIN IV PRN ×2 (21:13)
[2016-05-29] MEDS ORDERED: GENTAMICIN SULFATE 0 MG in DEXTROSE 5%-WATER 100 ML IV NR (21:15)
[2016-05-29] MEDS ORDERED: VANCOMYCIN HCL 0 MG in DEXTROSE 5%-WATER 250 ML IV NR (21:15)
[2016-05-29] MEDS ORDERED: ACETAMINOPHEN 650 MG SUPP.RECT PR PRN (21:20)
[2016-05-29] MEDS ORDERED: PIPERACILLIN/TAZOBACTAM 4.5 GM VIAL IV PRN (21:29)
[2016-05-29 21:39] LABS: ADD ON TESTING BLD IN LAB ACKNOWLEDGE
[2016-05-29] MEDS ORDERED: HYDROCORTISONE SOD SUCCINATE INJ/PF 100 MG/2 ML SDV ONE (21:47)
[2016-05-29 21:50] LABS: CREATINE KINASE 30 U/L (30-135)
[2016-05-29] MEDS ORDERED: DOXYCYCLINE HYCLATE 100 MG in DEXTROSE 5%-WATER 250 ML IV SCH (22:00)
--- NOTE | 2016-05-29 22:23 | PDOC H&P ---
History of Present Illness Admission Date/PCP: 05/29/16 19:04 WAI TIRADO DO Patient complains of: Fever, cough, shortness of breath History of Present Illness: RAI MONROY is a 60 year old female with a fairly complicated medical history, including known Crohn's disease, clotting disorder, currently on Arixtra for same, status post recent left below-knee amputation at [facility], type I diabetes mellitus, hypertension, mild anxiety and depression, without suicidal or homicidal ideation, esophageal reflux disease, asthma, chronic dysphagia, eczema, history of TIA who presents to the emergency room for evaluation of above complaints. Patient has been discussed with emergency room physician who evaluated the patient. Patient herself is quite sick and is able to provide little if any history. Emergency room physician notes are reviewed, revealing patient complaints of abdominal pain. Tachycardic at 157 and hypoxic at 76% saturation upon EMS arrival, 95% saturation subsequently on 12 L oxygen. Temperature 103.5. Had defecated diarrhea on herself. Generalized abdominal pain, right side greater than left, with shallow breathing, and exacerbation of abdominal pain with deep breath. No further information available this point in time. No friends or family are present. Old inpatient records are reviewed. . Laboratory results are listed in [facility] and are reviewed. X-ray summary results are listed below, with full report(s) reviewed. . EKG reviewed. Social history/personal habits: Per old records, she is . Has children. Child is currently living with her. 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 No tobacco use since last December. No alcohol or illicit drug use. Allergies/adverse reactions are listed in [facility] and are reviewed. Home medications Home medications initially autopopulated into [employer] may not accurately reflect patient's true medications, dosages, and/or frequencies. transport tech to reconcile medications. Unfortunately, patient is too sick to list her medications/dosages/frequencies. REVIEW OF SYSTEMS: See history and present illness.No further information available this point in time. PHYSICAL EXAMINATION: Blood pressure 78/52. Pulse 120 and regular. Respirations are 33, with patient perhaps making mild use of her accessory respiratory muscles. 100% saturation on nonrebreather mask. Temperature 99.4. Thin chronically ill quite sick appearing female who appears a number of years older than her stated age. She is awake, somewhat drowsy, but again appears quite ill. Multiple emergency room and ICU nurses are present. Skin is warm and dry. No grossly obvious evidence of rash in areas of skin examined. No subcutaneous nodules palpated. ENT: Hearing grossly normal to normal conversation. Tongue midline on protrusion pink and slightly tacky. Eyes: No scleral icterus. Pupils equal and reactive to light at 4 mm. Ayden conjunctivae. Neck is nontender to gentle palpation. Midline trachea. No palpable thyroid nodule mass enlargement or tenderness. Lymphatic: No palpable cervical or clavicular nodes. Neck and lymphatic exams limited by patient body habitus and internal jugular line with associated dressing previously placed by emergency room physician.. Psychiatric: Difficult to adequately evaluate due to her current level of acute illness. Lungs: Auscultation reveals clear and equal breath sounds bilaterally. Mild use of accessory respiratory muscles. Cardiovascular: Heart regular rate and rhythm, without gallop murmur or rub. No carotid or abdominal aortic bruits, with examination of right carotid limited by right internal jugular line with associated dressing.. No right ankle or pedal edema. Faintly palpable dorsalis pedis pulse. Status post left below-knee amputation. Abdomen: soft, mildly, distended with rare bowel sounds. Mild right-sided tenderness, little elsewhere. No outward evidence of guarding or peritoneal signs. Unable to adequately evaluate abdomen for masses or organomegaly due to distention and discomfort.. Extremities: Right foot cool and and dry. No calf tenderness to compression. No grossly obvious visual evidence of calf swelling. Gentle manipulation of right lower extremity fails to reveal any obvious evidence of injury or instability to knee hip or ankle. Neurologic: Moves upper extremities grossly normally. Patellar reflex absent. Absent Babinski. Light touch can't be determined due to her current status.. Dorsiflexion and plantarflexion of right foot 5 / 5 . Past Medical History Past Medical History: For more complete information, please see History and Physical Exam, 04/18/16. Cardiac Medical History: Reports: Hypertension Denies: Congestive Heart Failure, Hyperlipidema, Pulmonary Embolism Pulmonary Medical History: Reports: Asthma Denies: Chronic Obstructive Pulmonary Disease (COPD) Neurological Medical History: Reports: Migraine Denies: Seizures Endocrine Medical History: Reports: Diabetes Mellitus Type 1 Denies: Diabetes Mellitus Type 2, Hyperthyroidism, Hypothyroidism GI Medical History: Reports: Crohn's Disease Denies: Cirrhosis, Hepatitis Psychiatric Medical History: Reports: Depression Hematology: Reports: Anemia Past Surgical History Past Surgical History: Reports: Section, Orthopedic Surgery - R knee; R shoulder; L BKA, Tonsillectomy Denies: Hysterectomy Social History Information Source: Emergency Med Personnel, [facility] Records Smoking Status: Smoker,Current Status Unk Frequency of Alcohol Use: None Hx Recreational Drug Use: No Drugs: None Hx Prescription Drug Abuse: No - Advance Directive Resuscitation Status: Full Code Surrogate healthcare decision maker:: Uncertain at this time; likely her daughter. Family History Family History: None Parental Family History Reviewed: No - patient not able to provide information at this time. Children Family History Reviewed: No - patient not able to provide information at this time. Sibling(s) Family History Reviewed.: No - patient not able to provide information at this time. Medication/Allergy Home Medications: Adalimumab [Humira Pen] 1 syr INJ Q10D 05/30/16 Albuterol Sulfate [Ventolin HFA MDI 18 GM] 2 puff IH Q4HP PRN 05/30/16 Amlodipine Besylate [Norvasc 5 mg Tablet] 5 mg PO BID 05/30/16 Fondaparinux Sodium [Arixtra] 1 syr INJ DAILY 05/30/16 Hydromorphone HCl [Dilaudid] 4 mg PO Q4HP PRN 05/30/16 Insulin Aspart [Novolog Flexpen] 4 unit SQ BID 05/30/16 Insulin Glargine,Hum.rec.anlog [Lantus Solostar] 5 units SQ QPM 05/30/16 Montelukast Sodium [Singulair 10 mg Tablet] 10 mg PO QPM 05/30/16 Oxycodone HCl [Oxycontin] 20 mg PO Q8 05/30/16 Pantoprazole Sodium [Protonix] 40 mg PO BID 05/30/16 Promethazine HCl [Phenergan 25 mg Tablet] 1 tab PO Q4HP PRN 05/30/16 Ranitidine HCl [Zantac 150 mg Tablet] 150 mg PO DAILY 05/30/16 Allergies/Adverse Reactions: Sulfa (Sulfonamide Antibiotics) Allergy (Verified 05/04/16 04:41) Physical Exam Vital Signs: Temp Pulse Resp BP Pulse Ox 100.1 F 115 H 27 H 81/61 L 93 05/29/16 19:47 05/29/16 17:07 05/29/16 19:47 05/29/16 19:47 05/29/16 19:47 Intake & Output 05/28/16 05/29/16 05/30/16 00:59 00:59 00:59 Weight 61.7 kg Results Laboratory Results: 05/29/16 19:29 Carbonic Acid 1.27 HCO3/H2CO3 Ratio 20:1 ABG pH 7.41 ABG pCO2 42.2 ABG pO2 70.9 L ABG HCO3 26.0 ABG O2 Saturation 94.4 ABG Base Excess 1.2 FiO2 15L Impressions: Chest X-Ray 05/29/16 18:44 IMPRESSION: Right IJ line in place, appropriate. No complication. Assessment & Plan - Diagnosis (1) Acute respiratory failure Qualifiers: Respiratory failure complication: unspecified whether with hypoxia or hypercapnia Qualified Code(s): J96.00 - Acute respiratory failure, unspecified whether with hypoxia or hypercapnia Is this a current diagnosis for this admission?: YesPlan: Due to the overall critical nature of patient's illness, combined with her level of somnolence and clinical increasing work of breathing, decision made to proceed with endotracheal intubation. Discussed with patient, who agrees. Performed by LSAT INSTRUCTOR without difficulty. Tolerated well. Chest x-ray obtained; film reviewed on portable device. Appropriate appearance of postintubation chest. Final interpretation by radiology pending. Pulmonology consult.. (2) Hypokalemia Is this a current diagnosis for this admission?: YesPlan: Electrolyte replacement with follow-up chemistry. (3) Hypomagnesemia Is this a current diagnosis for this admission?: YesPlan: Electrolyte replacement with follow-up chemistry. (4) LLL pneumonia Qualifiers: Pneumonia type: due to unspecified organism Qualified Code(s): J18.1 - Lobar pneumonia, unspecified organism Is this a current diagnosis for this admission?: YesPlan: Patient will be admitted under pneumonia protocol. Incentive spirometry twice a day. Scheduled DuoNeb's. PRN albuterol nebs IV Pepcid for gastritis prophylaxis. Pulmonology consult. Antibiotics will consist of intravenous vancomycin, gentamicin, doxycycline, and Zosyn. Pharmacy to assist with dosing.. Patient is a full code. Knee high SCDs for DVT prophylaxis,; with patient on systemic anticoagulation, no need for Lovenox or heparin at this point in time. Critical care Time spent in evaluation and management of patient: 110 minutes. At 8:55 PM, 05/29/2016, as preparations were being made to intubate patient, I spoke by phone with her daughter Natasha Monroy. I told her in layperson's terms that her mother was very sick, likely due to pneumonia, and was requiring 2 special medications in an attempt to raise her blood pressure to more normal levels. Told her blood pressure at that time was quite low. Again, I reiterated to her that her mother was quite seriously ill. Told her the rationale for placing her mother on the ventilator and discussed in layperson's terms other interventions that had been and were to be performed. She appreciated the information. (5) Right sided abdominal pain Is this a current diagnosis for this admission?: YesPlan: Once patient is more stable, will proceed to CT scan of abdomen and pelvis without contrast. (6) Septic shock Is this a current diagnosis for this admission?: YesPlan: Patient has been on steroids during recent hospital admissions. Solu-Cortef started. IV fluid boluses. Levophed and Fausto-Synephrine drips ongoing. (7) Crohns disease Qualifiers: Gastrointestinal tract location: unspecified location Digestive disease complication type: unspecified complication Qualified Code(s): K50.919 - Crohn's disease, unspecified, with unspecified complications Is this a current diagnosis for this admission?: Yes (8) Anticoagulated Is this a current diagnosis for this admission?: YesPlan: Resume home medications as appropriate once these have been determined and reviewed. 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 Accu-Cheks with appropriate sliding scale coverage. (10) Hypercoagulable state Is this a current diagnosis for this admission?: Yes - Inpatient Certification Based on my medical assessment, after consideration of the patient's comorbidities, presenting symptoms, or acuity I expect that the services needed warrant INPATIENT care.: Yes I certify that my determination is in accordance with my understanding of Medicare's requirements for reasonable and necessary INPATIENT services [42 CFR 412.3e].: Yes Medical Necessity: Need Close Monitoring Due to Risk of Patient Decompensation, Need For IV Fluids, Need For Continuous Telemetry Monitoring, Need for Nebulizer Therapy and Monitoring of Response, Need for IV Antibiotics, Risk of Diagnosis Which Will Require Inpatient Eval/Care/Monitoring Post Hospital Care: D/C or Transfer Summary
[2016-05-29 22:26] LABS: CREATINE KINASE MB 0.32 ng/mL (<4.55)
[2016-05-29 22:31] LABS: ARTERIAL BLOOD BASE EXCESS -8.3 mmol/L; ARTERIAL BLOOD O2 SATURATION 97.2 % (94-98)
[2016-05-29] MEDS ORDERED: DEXTROSE 5%-WATER 250 ML with VASOPRESSIN 100 UNIT IV PRN ×2 (22:32)
[2016-05-29 22:34] LABS: TROPONIN I 0.227 ng/mL
[2016-05-29] MEDS: FAMOTIDINE INJ/PF 20 MG/2 ML SDV IV SCH (22:46)
[2016-05-29] MEDS: PIPERACILLIN SODIUM/TAZOBACTAM 4.5 GM in NORMAL SALINE 100 ML IV SCH (23:33)
[2016-05-29] MEDS: ALBUTEROL SULFATE 0.083% NEB 2.5 MG/3 ML AMPUL NEB PRN (23:51)
[2016-05-30] MEDS ORDERED: GENTAMICIN SULFATE INJ 80 MG/2 ML VIAL IV PRN (00:30)
[2016-05-30] MEDS ORDERED: GENTAMICIN SULFATE 80 MG in DEXTROSE 5%-WATER 100 ML IV ONE (01:00)
[2016-05-30] MEDS: DEXTROSE 5%-WATER 250 ML with PHENYLEPHRINE HCL 40 MG IV PRN ×6 (01:51→12:25)
[2016-05-30] MEDS: DEXTROSE 5%-WATER 250 ML with NOREPINEPHRINE BITARTRATE 4 MG IV PRN ×4 (01:56→06:42)
[2016-05-30] MEDS ORDERED: DOXYCYCLINE HYCLATE 100 MG in DEXTROSE 5%-WATER 250 ML IV SCH ×3 (02:00→18:00)
[2016-05-30] MEDS ORDERED: PIPERACILLIN/TAZOBACTAM 4.5 GM VIAL IV ONE (02:05)
[2016-05-30] MEDS ORDERED: DOXYCYCLINE HYCLATE INJ 100 MG VIAL ONE (02:06)
[2016-05-30] MEDS: NORMAL SALINE 1000 ML 1,000 ML IV PRN ×5 (03:03→22:22)
[2016-05-30] MEDS: HYDROCORTISONE SOD SUCCINATE INJ/PF 100 MG/2 ML SDV IV SCH ×4 (03:05→20:00)
[2016-05-30 03:27] LABS: BLOOD UREA NITROGEN 15 mg/dL (7-20); CHLORIDE 113 mmol/L (98-107); CREATININE RESULT 0.76 mg/dL (0.52-1.25); GLUCOSE 157 mg/dL (75-110); SODIUM 140.3 mmol/L (137-145)
[2016-05-30 04:00] LABS: ANION GAP 11 (5-19)
[2016-05-30] MEDS ORDERED: VANCOMYCIN HCL INJ 1000 MG VIAL IV PRN (04:00)
[2016-05-30 04:03] LABS: CARBON DIOXIDE 16 mmol/L (22-30); MAGNESIUM 2.2 mg/dL (1.6-2.3); POTASSIUM 4.4 mmol/L (3.6-5.0)
[2016-05-30 04:05] LABS: CALCIUM 5.9 mg/dL (8.4-10.2)
[2016-05-30 04:28] LABS: HEMATOCRIT 29.7 % (36.0-47.0); HEMOGLOBIN 9.1 g/dL (12.0-15.5); HGB HCT DIFFERENCE -2.4; MEAN CORPUSCULAR HEMOGLOBIN 26.9 pg (27.0-33.4); MEAN CORPUSCULAR HGB CONC 30.6 g/dL (32.0-36.0); MEAN CORPUSCULAR VOLUME 88 fl (80-97); RED BLOOD COUNT 3.38 10^6/uL (3.72-5.28); RED CELL DISTRIBUTION WIDTH 21.8 % (11.5-14.0)
[2016-05-30 04:37] LABS: CREATINE KINASE MB 3.1 ng/mL (<4.55); TROPONIN I 0.27 ng/mL
[2016-05-30 04:39] LABS: WHITE BLOOD COUNT 33.2 10^3/uL (4.0-10.5)
[2016-05-30 04:55] LABS: BAND NEUTROPHILS % (MANUAL) 8 % (3-5); BASOPHILS % (MANUAL) 0 % (0-2); EOSINOPHILS % (MANUAL) 0 % (0-6); LYMPHOCYTES % (MANUAL) 0 % (13-45); TOTAL CELLS COUNTED 100
[2016-05-30 05:00] LABS: ANISOCYTOSIS 3+; HYPOCHROMASIA SLIGHT; POIKILOCYTOSIS 2+; TOXIC GRANULATION 2+
[2016-05-30] MEDS ORDERED: VANCOMYCIN HCL 1,000 MG in DEXTROSE 5%-WATER 250 ML IV ONE (05:00)
[2016-05-30 05:01] LABS: ACANTHOCYTES SLIGHT; OVALOCYTES 1+; TEAR DROP CELLS 1+
[2016-05-30] MEDS: PIPERACILLIN SODIUM/TAZOBACTAM 4.5 GM in NORMAL SALINE 100 ML IV SCH ×3 (05:26→17:01)
[2016-05-30] MEDS: ALBUTEROL SULFATE 0.083% NEB 2.5 MG/3 ML AMPUL NEB PRN (06:25)
[2016-05-30] MEDS ORDERED: NOREPINEPHRINE BITARTRATE INJ/PF 4 MG/4 ML SDV IV ONE (06:40)
[2016-05-30] MEDS: PROPOFOL 100 ML IV PRN ×4 (06:42→20:01)
[2016-05-30 06:54] LABS: ARTERIAL BLOOD BASE EXCESS -12.5 mmol/L; ARTERIAL BLOOD O2 SATURATION 99.1 % (94-98)
[2016-05-30] MEDS ORDERED: CALCIUM GLUCONATE 1,000 MG in DEXTROSE 5%-WATER 50 ML IV ONE (08:01)
[2016-05-30] MEDS ORDERED: MORPHINE SULFATE 10 MG/ML INJ ONE (08:04)
[2016-05-30] MEDS: IPRATROPIUM/ALBUTEROL 0.5-2.5 MG/3 ML AMPUL NEB SCH ×3 (08:31→20:11)
[2016-05-30] MEDS: FAMOTIDINE INJ/PF 20 MG/2 ML SDV IV SCH ×2 (09:30→21:15)
[2016-05-30] MEDS ORDERED: CALCIUM GLUCONATE 1000 MG/10 ML INJ IV ONE (09:30)
[2016-05-30 09:42] LABS: ARTERIAL BLOOD BASE EXCESS -11.7 mmol/L; ARTERIAL BLOOD O2 SATURATION 96.1 % (94-98)
[2016-05-30] MEDS: MORPHINE SULFATE 10 MG/ML INJ IV SCH ×4 (11:16→21:22)
--- NOTE | 2016-05-30 11:48 | PDOC PROGRESS REPORT ---
Subjective Progress Note for:: 05/30/16 Subjective:: Reason for follow-up visit: Pneumonia, acalculous cholecystitis, septic shock Hospital course: Per H&P "RAI VOGT is a 60 year old female with a fairly complicated medical history, including known Crohn's disease, clotting disorder, currently on Arixtra for same, status post recent left below-knee amputation at [facility], type I diabetes mellitus, hypertension, mild anxiety and depression, without suicidal or homicidal ideation, esophageal reflux disease, asthma, chronic dysphagia, eczema, history of TIA who presents to the emergency room for evaluation of above complaints. Patient has been discussed with emergency room physician who evaluated the patient. Patient herself is quite sick and is able to provide little if any history. Emergency room physician notes are reviewed, revealing to patient complaints of abdominal pain. Tachycardic at 157 and hypoxic at 76% saturation upon EMS arrival, 95% saturation 12 L oxygen. Temperature 103.5. Had defecated diarrhea on herself. Generalized abdominal pain, right side greater than left, with shallow breathing, and exacerbation of abdominal pain with deep breath. No further information available this point in time. No friends or family are present. Old inpatient records are reviewed." I inherited her care for 05/30/16 and find her in the ICU, intubated and remains on mechanical ventilation and respiratory distress with increased work of breathing and attempts to breathe around the tube, she is on SIMV/PRVC with a rate of 12, tidal volume of 400, pressure support of 10, PEEP of 5 and an FiO2 of 70% but breathing 26 times per minute. She remains on both Fausto-Synephrine and levo fed, last CVP was 14 with mean arterial pressures greater than 80. She is on stress dose steroids, normal saline running wide open, day 2 of Zosyn , doxycycline, gentamicin, vancomycin. ROS: unable to obtain due to mental state; nursing reports she was more alert and interactive this morning and nonverbally indicated the need for pain medicine due to pain in her abdomen. Physical Exam Vital Signs: Temp Pulse Resp BP Pulse Ox 99.7 F 95 18 96/75 L 97 05/30/16 08:00 05/30/16 10:00 05/30/16 10:00 05/30/16 10:00 05/30/16 10:00 Intake & Output 0405/30/16 05/31/16 06:59 06:59 06:59 Intake Total 47689 Output Total 982 650 Balance 44059 -650 Weight 69.3 kg EXAM GENERAL: mod resp distress; well developed, well nourished; no obese; sedated; appears chronically ill HEENT: normocephalic, atraumatic; no conjunctival injection, no scleral icterus ; oral mucosa moist; ETT in good position, trachea midline RESPIRATORY: accessory abd muscle use, mod increased WOB, good air entry bilaterally; no wheezes, or rhonchi; bilat L>R rales and crackles CARDIO: no JVD; RRR; no systolic murmur; borderline tachycardia GI: soft; nondistended; diminished bowel sounds;no rebound, rigidity, guarding ; grimace to palpation throughout VASCULAR: no abdominal bruit; pale; 2+ radial; normal capillary refill EXTREMITIES: no palpable cords in calf; no clubbing, cyanosis, pedal edema; Lf BKA PSYCH: sedated SKIN: warm; dry; no petechiae; no telengectasias; no jaundice; Results Laboratory Results: 05/30/16 04:00 05/30/16 03:00 05/29/16 05/29/16 05/29/16 22:00 22:00 22:10 WBC RBC Hgb Hct MCV MCH MCHC RDW Plt Count Seg Neutrophils % Lymphocytes % Monocytes % Eosinophils % Basophils % Absolute Neutrophils Absolute Lymphocytes Absolute Monocytes Absolute Eosinophils Absolute Basophils Carbonic Acid 1.23 HCO3/H2CO3 Ratio 14:1 ABG pH 7.27 L ABG pCO2 40.7 ABG pO2 106.7 H ABG HCO3 18.1 L ABG O2 Saturation 97.2 ABG Base Excess -8.3 FiO2 80% Sodium Potassium Chloride Carbon Dioxide Anion Gap BUN Creatinine Est GFR ( Amer) Est GFR (Non-Af Amer) Glucose Lactic Acid 2.7 H Calcium Magnesium Albumin Blood Type B POSITIVE Antibody Screen NEGATIVE 05/30/16 05/30/16 05/30/16 03:00 04:00 04:00 WBC 33.2 H* RBC 3.38 L Hgb 9.1 L Hct 29.7 L MCV 88 MCH 26.9 L MCHC 30.6 L RDW 21.8 H Plt Count 309 Seg Neutrophils % Not Reportable Lymphocytes % Not Reportable Monocytes % Not Reportable Eosinophils % Not Reportable Basophils % Not Reportable Absolute Neutrophils Not Reportable Absolute Lymphocytes Not Reportable Absolute Monocytes Not Reportable Absolute Eosinophils Not Reportable Absolute Basophils Not Reportable Carbonic Acid HCO3/H2CO3 Ratio ABG pH ABG pCO2 ABG pO2 ABG HCO3 ABG O2 Saturation ABG Base Excess FiO2 Sodium 140.3 Potassium 4.4 D Chloride 113 H Carbon Dioxide 16 L D Anion Gap 11 BUN 15 Creatinine 0.76 Est GFR ( Amer) > 60 Est GFR (Non-Af Amer) > 60 Glucose 157 H Lactic Acid Calcium 5.9 L* Magnesium 2.2 D Albumin 2.2 L Blood Type Antibody Screen 05/30/16 05/30/16 06:25 09:17 WBC RBC Hgb Hct MCV MCH MCHC RDW Plt Count Seg Neutrophils % Lymphocytes % Monocytes % Eosinophils % Basophils % Absolute Neutrophils Absolute Lymphocytes Absolute Monocytes Absolute Eosinophils Absolute Basophils Carbonic Acid 0.80 L 0.82 L HCO3/H2CO3 Ratio 15:1 15:1 ABG pH 7.29 L 7.30 L ABG pCO2 26.6 L 27.3 L ABG pO2 180.2 H 88.6 ABG HCO3 12.4 L 13.0 L ABG O2 Saturation 99.1 H 96.1 ABG Base Excess -12.5 -11.7 FiO2 80% 50% Sodium Potassium Chloride Carbon Dioxide Anion Gap BUN Creatinine Est GFR ( Amer) Est GFR (Non-Af Amer) Glucose Lactic Acid Calcium Magnesium Albumin Blood Type Antibody Screen 05/30/16 05/30/16 04:00 04:00 Creatine Kinase 110 CK-MB (CK-2) 3.10 Troponin I 0.270 Impressions: Abdomen Ultrasound 05/30/16 00:00 IMPRESSION: No gallstones are identified. There is thickening of the gallbladder ko and there is pericholecystic fluid. This was present on the previous CT scan. The possibility of an acalculous cholecystitis should be considered. Other findings as noted above Abdomen/Pelvis CT 05/30/16 01:00 IMPRESSION: There is relative increased density within the gallbladder lumen which could represent biliary sludge. Pericholecystic fluid is identified in the possibility of cholecystitis should be considered. Abdominal ultrasound may be of value for confirmation if clinically warranted. Bibasilar densities representing small bilateral pleural effusions with associated airspace consolidation which could represent atelectatic changes or basilar infiltrates. Other findings as noted above Chest X-Ray 05/30/16 06:30 IMPRESSION: Support lines and tubes remain in place. There is now all bibasilar airspace disease most consistent with pulmonary edema. Status: Image reviewed by me - agree with rads Assessment & Plan - Diagnosis (1) LLL pneumonia Qualifiers: Pneumonia type: due to unspecified organism Qualified Code(s): J18.1 - Lobar pneumonia, unspecified organism Is this a current diagnosis for this admission?: YesPlan: Given the patient's immunocompromised state due to treatment for underlying Crohn's disease with biologic agents and steroids plus her hospitalization within the last 30 days, we'll continue broad-spectrum quadruple antibiotic therapy. Pulmonology has been consulted to assist with mechanical ventilation and consider the possibility of bronchoscopy for BAL diagnostic purposes. Follow-up on tracheal aspirate and blood cultures to hopefully narrow the antibiotic spectrum. (2) Acute acalculous cholecystitis Is this a current diagnosis for this admission?: YesPlan: Gen. surgery's been consulted, awaiting their input. Continue broad-spectrum antibiotics and supportive care otherwise. (3) Septic shock Is this a current diagnosis for this admission?: YesPlan: Continue to monitor and maintain CVP greater than 10 less than 20 with IV fluids and vasopressors weaning as possible. Continue stress dose steroids. Monitor and maintain hematocrit greater than 30. Optimize blood sugar control at less than 200. (4) Acute respiratory failure with hypoxia Is this a current diagnosis for this admission?: YesPlan: She appears to be at least moderate pulmonary distress and air hungry though not for supplemental O2 but seem as her saturation level is appropriate but rather increased work of breathing and an apparent attempt to blow off CO2 from her worsening metabolic acidosis. Furthermore, she appears to be in pain adding to her distress. We will increase her respiratory rate 18 for now and defer to Dr. Mcdonald upon his arrival for further ventilation orders. We will schedule morphine and add as needed medication as she has multiple reasons for acute pain and is opiate dependent at home. (5) Non-ST elevation myocardial infarction (NSTEMI), type 2 Is this a current diagnosis for this admission?: YesPlan: Likely demand ischemia from the septic shock and not cause and affect. Dr. Douglas consulted for cardiology input. Beta blockers contraindicated due to hypotension. At 325 mg aspirin per OG tube. Hold on statin therapy for now. (6) Hypokalemia Is this a current diagnosis for this admission?: YesPlan: Monitor and replace. (7) Hypomagnesemia Is this a current diagnosis for this admission?: YesPlan: Continue to monitor and replace. (8) Crohns disease Qualifiers: Gastrointestinal tract location: unspecified location Digestive disease complication type: unspecified complication Qualified Code(s): K50.919 - Crohn's disease, unspecified, with unspecified complications Is this a current diagnosis for this admission?: Yes (10) Hx of BKA Qualifiers: Laterality: left Qualified Code(s): Z89.512 - Acquired absence of left leg below knee (13) Diabetes mellitus type 1 Qualifiers: Diabetes mellitus complication status: without complication Qualified Code(s): E10.9 - Type 1 diabetes mellitus without complications (14) Hypercoagulable state Is this a current diagnosis for this admission?: YesPlan: Continue Arixtra, home dose is not known but as this is a chronic problem and medication for her will continue at 7.5 mg subcutaneous daily based on her weight. - Time Time Spent with patient: 35 or more minutes Medications reviewed and adjusted accordingly: Yes - Plan Summary Plan Summary: Patient remains quite ill with multiorgan system failure evidenced by encephalopathy, respiratory failure secondary to sepsis and shock which carries high risk for morbidity and mortality. Therefore her prognosis is guarded at best.
[2016-05-30] MEDS ORDERED: GENTAMICIN SULFATE 140 MG in DEXTROSE 5%-WATER 100 ML IV ONE (12:00)
[2016-05-30] MEDS ORDERED: ASPIRIN 325 MG TABLET PO SCH (12:00)
[2016-05-30 12:29] LABS: ARTERIAL BLOOD BASE EXCESS -10.9 mmol/L; ARTERIAL BLOOD O2 SATURATION 97.3 % (94-98)
[2016-05-30] MEDS ORDERED: DILTIAZEM HCL INJ 25 MG/5 ML VIAL ONE (13:10)
[2016-05-30] MEDS: MORPHINE SULFATE 10 MG/ML INJ IV PRN (15:07)
--- NOTE | 2016-05-30 15:43 | CONSULTATION REPORT E ---
Consultation Report NAME: RAI VOGT : 1955 AGE: 60Y DATE: 05/30/2016 601 A TO: JACQUI ELIAS M.D. FROM: JUDE GILMAN M.D. Requesting Physician REASON FOR CONSULTATION: Consultation from hospitalist group for evaluation and management of possible gallstones and possible cholecystitis. HISTORY OF PRESENT ILLNESS: This is a pleasant 60-year-old female patient who has multiple medical problems including Crohn's disease, history of coagulopathy, and history of left below-knee amputation with diabetes, hypertension, multiple medical problems. She came to the hospital. She was hypoxic with saturation of 76%, was not able to communicate verbally. She had a fever of 103, and then she was intubated. She did complain of some abdominal pain on the right side in the past. The patient was subsequently intubated and put on a ventilator in ICU for pneumonia on the right side. PAST MEDICAL HISTORY: Past medical problems are multiple and includin. History of Crohn's disease. 2. History of diabetes. 3. History of coagulopathy. 4. Reflux disease. 5. History of diabetes with left below-knee amputation. PAST SURGICAL HISTORY: Left below-knee amputation. No abdominal surgery so far. REVIEW OF SYSTEMS: . PHYSICAL EXAMINATION: GENERAL: Was seen in ICU, sedated on a ventilator. NECK EXAMINATION: No lymphadenopathy. No masses. RESPIRATORY EXAMINATION: Both lungs with good air entry but on the right side, more crepitations. CARDIOVASCULAR EXAMINATION: Both heart sounds regular. No murmurs or gallops. ABDOMEN EXAMINATION: She has a soft abdomen. No tenderness on examination. Bowel sounds are still present. EXTREMITIES: Left lower extremity BKA with healthy stump. Right leg was warm and perfused. DIAGNOSTIC TESTS: She had blood gases done which appeared acidotic. Her labs: Creatinine was 0.76 and potassium 4.4, sodium 140. White count is very high at 33,000, hemoglobin 9.1, platelets normal. She underwent other studies including CT scan of the abdomen and pelvis which revealed no acute intra-abdominal pathology except for gallstones. Gallbladder wall was about 3.4 mm, possible sludge, possible stones with some pericholecystic fluid. After that, she subsequently underwent ultrasound of the gallbladder. No gallstones were seen on ultrasound of the gallbladder, but there may be some thickening of the gallbladder wall. IMPRESSION: The patient has multiple medical problems and respiratory failure and pneumonia, now with thickening of the gallbladder wall but stones found on ultrasound, and questionable cholecystitis clinically. Abdomen benign and nontender. For these reasons, no surgical emergency or intervention needed. Her white count may be due to the severe pneumonia or pneumonitis. PLAN: Obtain HIDA scan. If the HIDA scan is positive for obstructed gallbladder, she may need percutaneous drainage because of more sick lung problem. Surgery service will continue to follow. Thank you for consultation. DICTATING PHYSICIAN: JACQUI ELIAS M.D. [id number] PHY#: [id number] ID: [id number] JOB#: [id number] ACCT: [id number] cc:JACQUI ELIAS M.D. > MTDD
[2016-05-30] MEDS: VANCOMYCIN HCL 1,000 MG in DEXTROSE 5%-WATER 250 ML IV SCH (17:02)
[2016-05-30 17:04] LABS: ARTERIAL BLOOD BASE EXCESS -11.6 mmol/L; ARTERIAL BLOOD O2 SATURATION 96.8 % (94-98)
[2016-05-30] MEDS: INSULIN LISPRO 100 UNIT/ML 3 ML VIAL SUBCUT PRN (17:37)
--- NOTE | 2016-05-30 17:53 | PDOC CONSULTATION ---
Consultation Consult Date: 05/30/16 Attending physician:: JUDE GILMAN Consult reason:: septic shock pna resp failure History of Present Illness Admission Date/PCP: 05/29/16 21:13 WAI TIRADO DO History of Present Illness: Information from hospitial recordsDENISE TORIE is a 60 year old female with a fairly complicated medical history, including known Crohn's disease, clotting disorder, currently on Arixtra for same, status post recent left below- knee amputation at [facility], type I diabetes mellitus , hypertension, mild anxiety and depression, without suicidal or homicidal ideation, esophageal reflux disease, asthma, chronic dysphagia, eczema, history of TIA.Currently intubated and sedated with pneumonia,septic shock and distended abdomen with a abnormal CT of the abdomen. Past Medical History Cardiac Medical History: Reports: Hypertension Denies: Congestive Heart Failure, Hyperlipidema, Pulmonary Embolism Pulmonary Medical History: Reports: Asthma Denies: Chronic Obstructive Pulmonary Disease (COPD) Neurological Medical History: Reports: Migraine Denies: Seizures Endocrine Medical History: Reports: Diabetes Mellitus Type 1 Denies: Diabetes Mellitus Type 2, Hyperthyroidism, Hypothyroidism GI Medical History: Reports: Crohn's Disease Denies: Cirrhosis, Hepatitis Psychiatric Medical History: Reports: Depression Hematology: Reports: Anemia Past Surgical History Past Surgical History: Reports: Section, Orthopedic Surgery - R knee; R shoulder; L BKA, Tonsillectomy Denies: Hysterectomy Social History Information Source: [facility] Records Smoking Status: Smoker,Current Status Unk Cigarettes Packs Per Day: 1 Frequency of Alcohol Use: None Hx Recreational Drug Use: No Drugs: None Hx Prescription Drug Abuse: No Do you have pets?: No Have you had any respiratory illnesses as a child?: No Have you been exposed to any sick contacts recently?: No Have you had any recent respiratory illnesses?: No Have you travelled outside of [place] in the past 12 months?: No - Advance Directive Resuscitation Status: Full Code Family History Family History: None Parental Family History Reviewed: No Children Family History Reviewed: No Sibling(s) Family History Reviewed.: No Medication/Allergy Home Medications: Adalimumab [Humira Pen] 1 syr INJ Q10D 05/30/16 Albuterol Sulfate [Ventolin HFA MDI 18 GM] 2 puff IH Q4HP PRN 05/30/16 Amlodipine Besylate [Norvasc 5 mg Tablet] 5 mg PO BID 05/30/16 Fondaparinux Sodium [Arixtra] 1 syr INJ DAILY 05/30/16 Hydromorphone HCl [Dilaudid] 4 mg PO Q4HP PRN 05/30/16 Insulin Aspart [Novolog Flexpen] 4 unit SQ BID 05/30/16 Insulin Glargine,Hum.rec.anlog [Lantus Solostar] 5 units SQ QPM 05/30/16 Montelukast Sodium [Singulair 10 mg Tablet] 10 mg PO QPM 05/30/16 Oxycodone HCl [Oxycontin] 20 mg PO Q8 05/30/16 Pantoprazole Sodium [Protonix] 40 mg PO BID 05/30/16 Promethazine HCl [Phenergan 25 mg Tablet] 1 tab PO Q4HP PRN 05/30/16 Ranitidine HCl [Zantac 150 mg Tablet] 150 mg PO DAILY 05/30/16 Allergies/Adverse Reactions: Sulfa (Sulfonamide Antibiotics) Allergy (Verified 05/04/16 04:41) Review of Systems ROS unobtainable: Due to endotracheal tube Physical Exam Vital Signs: Temp Pulse Resp BP Pulse Ox 99.7 F 95 18 96/75 L 97 05/30/16 08:00 05/30/16 10:00 05/30/16 10:00 05/30/16 10:00 05/30/16 10:00 Intake & Output 05/29/16 05/30/16 05/31/16 06:59 06:59 06:59 Intake Total 80687 Output Total 702 650 Balance 22756 -650 Weight 69.3 kg General appearance: PRESENT: no acute distress, disheveled, obese Head exam: PRESENT: atraumatic, normocephalic Eye exam: PRESENT: conjunctiva pale Mouth exam: PRESENT: dry mucosa, neck supple, other - ET tube in tact Neck exam: ABSENT: carotid bruit, JVD, lymphadenopathy, thyromegaly Respiratory exam: PRESENT: decreased breath sounds, prolonged expiratory phas, rales, rhonchi, symmetrical, unlabored Cardiovascular exam: PRESENT: RRR, +S1, +S2 Pulses: PRESENT: normal radial pulses GI/Abdominal exam: PRESENT: distended, other - distended Rectal exam: PRESENT: deferred Gentrourinary exam: PRESENT: indwelling catheter Musculoskeletal exam: PRESENT: other - L bka Neurological exam: PRESENT: alert, awake Skin exam: PRESENT: dry, warm Results Laboratory Results: 05/30/16 04:00 05/30/16 03:00 05/29/16 05/29/16 05/29/16 22:00 22:00 22:10 WBC RBC Hgb Hct MCV MCH MCHC RDW Plt Count Seg Neutrophils % Lymphocytes % Monocytes % Eosinophils % Basophils % Absolute Neutrophils Absolute Lymphocytes Absolute Monocytes Absolute Eosinophils Absolute Basophils Carbonic Acid 1.23 HCO3/H2CO3 Ratio 14:1 ABG pH 7.27 L ABG pCO2 40.7 ABG pO2 106.7 H ABG HCO3 18.1 L ABG O2 Saturation 97.2 ABG Base Excess -8.3 FiO2 80% Sodium Potassium Chloride Carbon Dioxide Anion Gap BUN Creatinine Est GFR ( Amer) Est GFR (Non-Af Amer) Glucose Lactic Acid 2.7 H Calcium Magnesium Albumin Blood Type B POSITIVE Antibody Screen NEGATIVE 05/30/16 05/30/16 05/30/16 03:00 04:00 04:00 WBC 33.2 H* RBC 3.38 L Hgb 9.1 L Hct 29.7 L MCV 88 MCH 26.9 L MCHC 30.6 L RDW 21.8 H Plt Count 309 Seg Neutrophils % Not Reportable Lymphocytes % Not Reportable Monocytes % Not Reportable Eosinophils % Not Reportable Basophils % Not Reportable Absolute Neutrophils Not Reportable Absolute Lymphocytes Not Reportable Absolute Monocytes Not Reportable Absolute Eosinophils Not Reportable Absolute Basophils Not Reportable Carbonic Acid HCO3/H2CO3 Ratio ABG pH ABG pCO2 ABG pO2 ABG HCO3 ABG O2 Saturation ABG Base Excess FiO2 Sodium 140.3 Potassium 4.4 D Chloride 113 H Carbon Dioxide 16 L D Anion Gap 11 BUN 15 Creatinine 0.76 Est GFR ( Amer) > 60 Est GFR (Non-Af Amer) > 60 Glucose 157 H Lactic Acid Calcium 5.9 L* Magnesium 2.2 D Albumin 2.2 L Blood Type Antibody Screen 05/30/16 05/30/16 06:25 09:17 WBC RBC Hgb Hct MCV MCH MCHC RDW Plt Count Seg Neutrophils % Lymphocytes % Monocytes % Eosinophils % Basophils % Absolute Neutrophils Absolute Lymphocytes Absolute Monocytes Absolute Eosinophils Absolute Basophils Carbonic Acid 0.80 L 0.82 L HCO3/H2CO3 Ratio 15:1 15:1 ABG pH 7.29 L 7.30 L ABG pCO2 26.6 L 27.3 L ABG pO2 180.2 H 88.6 ABG HCO3 12.4 L 13.0 L ABG O2 Saturation 99.1 H 96.1 ABG Base Excess -12.5 -11.7 FiO2 80% 50% Sodium Potassium Chloride Carbon Dioxide Anion Gap BUN Creatinine Est GFR ( Amer) Est GFR (Non-Af Amer) Glucose Lactic Acid Calcium Magnesium Albumin Blood Type Antibody Screen 05/30/16 05/30/16 04:00 04:00 Creatine Kinase 110 CK-MB (CK-2) 3.10 Troponin I 0.270 Impressions: Abdomen Ultrasound 05/30/16 00:00 IMPRESSION: No gallstones are identified. There is thickening of the gallbladder ko and there is pericholecystic fluid. This was present on the previous CT scan. The possibility of an acalculous cholecystitis should be considered. Other findings as noted above Abdomen/Pelvis CT 05/30/16 01:00 IMPRESSION: There is relative increased density within the gallbladder lumen which could represent biliary sludge. Pericholecystic fluid is identified in the possibility of cholecystitis should be considered. Abdominal ultrasound may be of value for confirmation if clinically warranted. Bibasilar densities representing small bilateral pleural effusions with associated airspace consolidation which could represent atelectatic changes or basilar infiltrates. Other findings as noted above Chest X-Ray 05/30/16 06:30 IMPRESSION: Support lines and tubes remain in place. There is now all bibasilar airspace disease most consistent with pulmonary edema. Assessment & Plan - Diagnosis (1) Abnormal CT scan, gallbladder Is this a current diagnosis for this admission?: Yes (2) Acute respiratory failure with hypoxia Is this a current diagnosis for this admission?: Yes (3) LLL pneumonia Qualifiers: Pneumonia type: due to unspecified organism Qualified Code(s): J18.1 - Lobar pneumonia, unspecified organism Is this a current diagnosis for this admission?: Yes (4) Septic shock Is this a current diagnosis for this admission?: YesPlan: profound metaboli acidosis with resp compensation - Time Critical Time spent with patient: 35 or more minutes - Plan Summary Plan Summary: [facility] 7.34
--- NOTE | 2016-05-30 18:29 | CONSULTATION REPORT E ---
Consultation Report NAME: RAI MONROY : 1955 AGE: 60Y DATE: 05/30/2016 601 A TO: FERNANDO QUEVEDO M.D. FROM: JUDE GILMAN M.D. Requesting Physician CRITICAL CARE CONSULTATION DATE/TIME OF CONSULTATION: 05/30/2016, 2:40 p.m. HISTORY OF PRESENT ILLNESS: The patient is a 60-year-old female with history of Crohn's disease, hypercoagulable state currently on Arixtra, status post recent left below-knee amputation at [facility], type 1 diabetes mellitus, hypertension, anxiety, asthma, depression, chronic dysphagia, eczema, and history of TIA who presents to the Emergency Room with fever, cough and shortness of breath. The patient was found to be tachycardic with a heart rate of 157 beats per minute. The EKG shows sinus tachycardia. Her O2 saturation was 76%, and her temperature was 103.5. Subsequently, her O2 saturation went up to 95% on 12 L of oxygen. She also was complaining of right-sided abdominal pain. No further information available. Note that the patient's EKG shows ST-segment depression in at least 2 EKGs, and the patient's troponin-I is elevated. The patient is unable to give a history since she is intubated due to respiratory failure secondary to hypoxia and sedated and, hence, cannot give a history. PAST MEDICAL HISTORY: Positive for hypertension. There is no history of congestive heart failure, no history of hyperlipidemia, no history of pulmonary embolism. She has a history of asthma but denies COPD. There is no history of sleep apnea. She has a history of migraine but no seizures. She has diabetes mellitus type 1 insulin dependent. She denies hyper or hypothyroidism. She has a history of Crohn's disease. There is no history of hepatitis. She has a history of depression and anxiety and reports anemia. No history of TIA or CVA. She has peripheral vascular disease and a left BKA in February in [facility]. She also has a history of chronic anemia on the last admission prior to this. At one admission, she came in with hemoglobin of 4.1 and was transfused. 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 SOCIAL HISTORY: The patient does not smoke. There is no history of ETOH abuse. FAMILY HISTORY: Patient not able to provide any information on this. No relatives reachable at present. ALLERGIES: She is allergic to SULFA. PAST SURGICAL HISTORY: Past surgical history is positive for section, orthopedic surgery on the right knee, right shoulder, and left BKA and tonsillectomy. REVIEW OF SYSTEMS: Not obtainable since the patient is intubated and sedated.Also family members not reachable. Note that the patient was hypotensive and was on Levophed 6 mcg per minute and Fausto-Synephrine at 20 mcg per minute. I have asked the nurse to wean her off Levophed which she did, and she is currently on 80 mcg of Fausto-Synephrine. MEDICATIONS: She is on Tylenol 650 mg per rectally q.4 hours p.r.n. She got adenosine 6 mg IV push x1. She is on albuterol sulfate nebulizer treatment q.4 hours 2.5 mg. Aspirin 325 mg p.o. noon. Calcium gluconate 1000 mg IV x1. She is hypoglycemic precautions with glucose 40% gel 15 g and 30 g p.o. p.r.n. hypoglycemia. She is also on hypoglycemic precautions with dextrose 50% 25 g IV and 12.5 g IV, respectively, p.r.n. hypoglycemia. She is on doxycycline 100 mg IV q.12 hours. She is on Pepcid 20 mg q.12 hours. She is on Arixtra (fondaparinux) 7.5 mg subcutaneously daily. She is on gentamicin 80 mg IV x1, and she also got another dose of gentamicin 140 mg IV q.14 hours. She is on glucagon 1 mg subcutaneously p.r.n. She is on hydrocortisone 100 mg IV q.6 hours. She had replacement of magnesium. She is also on piperacillin 4.5 g IV q.6 hours. She got several boluses of normal saline. She is on Accu-Chek q.6 hours with sliding scale insulin regulation and coverage. She is on magnesium sulfate 40 mg IV x1. She is on normal saline at 250 mL per hour. She also got potassium 20 mEq in 50 mL IV x1. PHYSICAL EXAMINATION: GENERAL: On examination, the patient is sedated and intubated. She is not fighting the ventilator. VITAL SIGNS: Temperature right now is 27.2; on admission, it was 103.5 degrees Fahrenheit or 37.2 Celsius. Her pulse is 89 beats per minute. Blood pressure 112/80. She is on 80 mcg of Fausto-Synephrine per minute. Her O2 saturation is 100% with respiratory rate of 24 on mechanical ventilator with an FiO2 of 45%. Subsequently at 2:49 p.m., her temperature was 99.1. Blood pressure 110/80. Pulse was 91. Respirations 17. O2 saturations are 99% on 45% FiO2. HEENT: Head is atraumatic, normocephalic. Eyes: Pupils are reactive to light. ENT is negative. NECK: Supple. There is no JVD. Carotids are equal; there is no bruit. There is no goiter. There is no lymphadenopathy. Trachea is central. LUNGS: There is a small area of absent breath sounds in both the bases, and above that, there are dry crackles of pneumonia. CARDIOVASCULAR: S1, S2 are heard. There is no S3 gallop. There is no S4 gallop. There is systolic murmur in the left sternal border and the apex. There is no rub. ABDOMEN: There is no hepatosplenomegaly. Bowel sounds are slightly increased. Abdomen is slightly distended. EXTREMITIES: Femorals are diminished. There are no femoral bruits. Leg pulses are diminished. There is no edema. There is left BKA. There is no cyanosis or clubbing. NEUROLOGIC: Not examined. PSYCHIATRIC: Not examined. DIAGNOSTIC TESTS: The patient's white count today is 33,200; hemoglobin is 9.1; hematocrit is 29.7; platelet count is 309. Yesterday, sodium was 141.5; potassium was 2.2; chloride was 99; CO2 was 30; BUN was 15; creatinine was 0.78; GFR was greater than 60; glucose was 76. Lactic acid was high at 4.1. Her magnesium was low at 1.2. Her liver function tests were normal. The total protein was 4.7, albumin 2.6. Her initial CK-MB was negative. Troponin-I was 0.227. Today, it is 0.270. Today, her sodium is 140.3, potassium 4.4, chloride 113, CO2 16. The patient's BUN is 15, creatinine 0.76. GFR is greater than 60. Her magnesium is also normal at 2.2. Her albumin is 2.2. The patient's chest x-ray initially showed a left small pleural effusion with basilar opacity. Her subsequent chest x-ray shows bibasilar opacities with small pleural effusions suggestive of pneumonia. There is no clinical evidence of congestive heart failure. There abdomen and pelvis CT shows increased density within the gallbladder lumen which could represent biliary sludge. Pericholecystic fluid is identified, and the possibility of cholecystitis should be considered. Abdominal ultrasound may be of value for confirmation. Bibasilar densities representing small bilateral pleural effusions and associated airspace consolidation would represent atelectatic changes or basilar infiltrates. The patient's abdominal ultrasound showed no gallstones identified. There is thickening of the gallbladder wall, and there is pericholecystic fluid. This was present on the previous CT scan. The possibility of an acalculous cholecystitis should be considered. The patient's EKG done yesterday shows sinus tachycardia and diffuse ST-segment depression suggestive of ischemia. Heart rate was 115. The EKG when the heart rate was 157 also showed sinus tachycardia and ST-segment depression. IMPRESSION: 1. Elevated troponin-I and ischemic EKG changes secondary to hypotension due to septic shock and hypoxemia and sepsis but cannot exclude [id number] myocardial infarction since the patient is not able to give any history. 2. Abnormal EKG: Most likely secondary to hypoxemia and hypotension secondary to septic shock and sepsis. But cannot rule out non-ST radiation NH, since the patient is not able to give a history. 3.Acute hypoxic respiratory failure. 4. Septic shock. Recommend continue IV fluids, antibiotics, and Fausto- Synephrine. We will try to wean off the Fausto-Synephrine if possible. 5. Bilateral pneumonia with small bilateral pleural effusions. Most likely these are parapneumonic effusions. Continue vent support, and antibiotics, and respiratory treatments. 6. Right-sided abdominal pain. The ultrasound suggests acalculous cholecystitis. Continue antibiotics, and recommended surgical consult 7. Crohn's disease. 8 History of hypertension, at present hypotensive secondary to septic shock.. Hypercoagulable state anticoagulation chronically with Arixtra. 9. 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 10. Hypokalemia, resolved, after repletion. 11. Hypomagnesemia, resolved, after repletion. RECOMMENDATIONS: Note that the patient is critically ill with multiple medical acute problems, such as hypotension due to septic shock, abnormal EKG, elevated troponin I, acute cholecystitis,. Continue ventilatory support and antibiotics. Continue IV fluids. We will recheck an EKG and cardiac enzymes in the a.m. The patient is off of Levophed and is now on Fausto-Synephrine. Note, the patient has significant dysphagia. Hence, I would give the aspirin rectally 300 mg. The patient also had a KUB x-ray which was unremarkable. Would recommend surgical consult. Continue her insulin coverage. Continue hydrocortisone. Continue Arixtra. TIME SPENT: Note 45 minutes spent on this patient for critical care, adjusting her medications, and discussions with other caregiving physicians. Also discussions with the nurse taking care of the patient There is no family around so the patient is at present FULL CODE. Her healthcare power of group director experience is her daughter, Ms. Monroy, as per the information on the patient's chart. But we'll try to get hold of the daughter to see if she really is the surrogate healthcare power of group director experience. DICTATING PHYSICIAN: FERNANDO QUEVEDO M.D. [id number] ALIZE#: [id number] ID: [id number] JOB#: [id number] ACCT: [id number] cc:FERNANDO QUEVEDO M.D. > MTDD
[2016-05-30] MEDS: GENTAMICIN SULFATE 140 MG in DEXTROSE 5%-WATER 100 ML IV SCH (21:17)
[2016-05-31] MEDS: PIPERACILLIN SODIUM/TAZOBACTAM 4.5 GM in NORMAL SALINE 100 ML IV SCH ×4 (00:02→20:59)
[2016-05-31] MEDS: INSULIN LISPRO 100 UNIT/ML 3 ML VIAL SUBCUT PRN (00:04)
[2016-05-31] MEDS: DEXTROSE 5%-WATER 250 ML with PHENYLEPHRINE HCL 40 MG IV PRN ×2 (00:43)
[2016-05-31] MEDS: PROPOFOL 100 ML IV PRN ×5 (01:19→22:33)
[2016-05-31] MEDS: MORPHINE SULFATE 10 MG/ML INJ IV SCH ×6 (01:20→22:29)
[2016-05-31] MEDS: HYDROCORTISONE SOD SUCCINATE INJ/PF 100 MG/2 ML SDV IV SCH ×4 (02:21→20:52)
[2016-05-31] MEDS: NORMAL SALINE 1000 ML 1,000 ML IV PRN ×3 (02:21→22:33)
[2016-05-31] MEDS ORDERED: DOXYCYCLINE HYCLATE 100 MG in DEXTROSE 5%-WATER 250 ML IV SCH ×4 (04:00)
[2016-05-31] MEDS: VANCOMYCIN HCL 1,000 MG in DEXTROSE 5%-WATER 250 ML IV SCH ×2 (05:44→17:49)
[2016-05-31 06:04] LABS: HEMATOCRIT 24.1 % (36.0-47.0); HGB HCT DIFFERENCE -1.6; MEAN CORPUSCULAR HEMOGLOBIN 27.2 pg (27.0-33.4); MEAN CORPUSCULAR HGB CONC 31.4 g/dL (32.0-36.0); MEAN CORPUSCULAR VOLUME 87 fl (80-97); RED BLOOD COUNT 2.77 10^6/uL (3.72-5.28); RED CELL DISTRIBUTION WIDTH 21.8 % (11.5-14.0); WHITE BLOOD COUNT 29.3 10^3/uL (4.0-10.5)
[2016-05-31 06:11] LABS: HEMOGLOBIN 7.5 g/dL (12.0-15.5)
[2016-05-31 06:19] LABS: ARTERIAL BLOOD BASE EXCESS -11.3 mmol/L; ARTERIAL BLOOD O2 SATURATION 97.7 % (94-98)
[2016-05-31 06:24] LABS: ALANINE AMINOTRANSFERASE 904 U/L (9-52); ALBUMIN 1.8 g/dL (3.5-5.0); ALKALINE PHOSPHATASE 111 U/L (38-126); ANION GAP 12 (5-19); ASPARTATE AMINO TRANSFERASE 402 U/L (14-36); BILIRUBIN,DIRECT 0.5 mg/dL (0.0-0.4); BILIRUBIN,TOTAL 0.5 mg/dL (0.2-1.3); BLOOD UREA NITROGEN 20 mg/dL (7-20); CALCIUM 7.2 mg/dL (8.4-10.2); CARBON DIOXIDE 14 mmol/L (22-30); CHLORIDE 117 mmol/L (98-107); GLUCOSE 146 mg/dL (75-110); POTASSIUM 3.5 mmol/L (3.6-5.0); SODIUM 143.1 mmol/L (137-145); TOTAL PROTEIN 3.8 g/dL (6.3-8.2)
[2016-05-31 06:26] LABS: BAND NEUTROPHILS % (MANUAL) 8 % (3-5); BASOPHILS % (MANUAL) 0 % (0-2); EOSINOPHILS % (MANUAL) 0 % (0-6); LYMPHOCYTES % (MANUAL) 2 % (13-45); NUCLEATED RED BLOOD CELLS 1 /100 WBC (0); TOTAL CELLS COUNTED 100
[2016-05-31 06:28] LABS: ANISOCYTOSIS 3+; POIKILOCYTOSIS 1+; SCHISTOCYTES SLIGHT; TEAR DROP CELLS 1+; TOXIC GRANULATION 1+
[2016-05-31] MEDS ORDERED: NORMAL SALINE 250 ML IV PRN ×2 (07:46)
[2016-05-31] MEDS: IPRATROPIUM/ALBUTEROL 0.5-2.5 MG/3 ML AMPUL NEB SCH ×3 (08:03→19:36)
--- NOTE | 2016-05-31 08:35 | PDOC PROGRESS REPORT ---
Subjective Progress Note for:: 05/31/16 Subjective:: Patient remains on ventilator; having copious oral tracheal secretions; now off norepinephrine drip, still on Fausto-Synephrine. Physical Exam Vital Signs: Temp Pulse Resp BP Pulse Ox 99.1 F 82 15 98/77 L 99 05/31/16 04:47 05/30/16 20:10 05/31/16 06:18 05/31/16 06:18 05/31/16 06:18 Intake & Output 05/30/16 05/31/16 06/01/16 06:59 06:59 06:59 Intake Total 43078 7559 Output Total 702 2750 200 Balance 12826 4809 -200 Weight 69.3 kg 74.6 kg General appearance: PRESENT: no acute distress, other - Patient pharmacologically sedated GI/Abdominal exam: PRESENT: other - Moderate edema; patient does wince when quadrant palpated. Results Laboratory Results: 05/31/16 05:45 05/31/16 05:45 05/29/16 05/30/16 05/30/16 22:00 09:17 12:15 WBC RBC Hgb Hct MCV MCH MCHC RDW Plt Count Seg Neutrophils % Lymphocytes % Monocytes % Eosinophils % Basophils % Absolute Neutrophils Absolute Lymphocytes Absolute Monocytes Absolute Eosinophils Absolute Basophils Carbonic Acid 0.82 L 0.78 L HCO3/H2CO3 Ratio 15:1 17:1 ABG pH 7.30 L 7.34 L ABG pCO2 27.3 L 25.9 L ABG pO2 88.6 99.8 ABG HCO3 13.0 L 13.6 L ABG O2 Saturation 96.1 97.3 ABG Base Excess -11.7 -10.9 FiO2 50% 50% Sodium Potassium Chloride Carbon Dioxide Anion Gap BUN Creatinine Est GFR ( Amer) Est GFR (Non-Af Amer) Glucose Calcium Magnesium Total Bilirubin AST ALT Alkaline Phosphatase Total Protein Albumin Blood Type B POSITIVE Antibody Screen NEGATIVE 05/30/16 05/31/16 05/31/16 16:55 05:45 05:45 WBC 29.3 H RBC 2.77 L Hgb 7.5 L Hct 24.1 L MCV 87 MCH 27.2 MCHC 31.4 L RDW 21.8 H Plt Count 244 Seg Neutrophils % Not Reportable Lymphocytes % Not Reportable Monocytes % Not Reportable Eosinophils % Not Reportable Basophils % Not Reportable Absolute Neutrophils Not Reportable Absolute Lymphocytes Not Reportable Absolute Monocytes Not Reportable Absolute Eosinophils Not Reportable Absolute Basophils Not Reportable Carbonic Acid 0.63 L HCO3/H2CO3 Ratio 19:1 ABG pH 7.38 ABG pCO2 21.0 L ABG pO2 87.9 ABG HCO3 12.1 L ABG O2 Saturation 96.8 ABG Base Excess -11.6 FiO2 40% Sodium 143.1 Potassium 3.5 L Chloride 117 H Carbon Dioxide 14 L Anion Gap 12 BUN 20 Creatinine 1.10 Est GFR ( Amer) > 60 Est GFR (Non-Af Amer) 51 L Glucose 146 H Calcium 7.2 L Magnesium 2.0 Total Bilirubin 0.5 AST 402 H ALT 904 H Alkaline Phosphatase 111 Total Protein 3.8 L Albumin 1.8 L Blood Type Antibody Screen 05/31/16 06:02 WBC RBC Hgb Hct MCV MCH MCHC RDW Plt Count Seg Neutrophils % Lymphocytes % Monocytes % Eosinophils % Basophils % Absolute Neutrophils Absolute Lymphocytes Absolute Monocytes Absolute Eosinophils Absolute Basophils Carbonic Acid 0.64 L HCO3/H2CO3 Ratio 19:1 ABG pH 7.38 ABG pCO2 21.3 L ABG pO2 101.5 H ABG HCO3 12.4 L ABG O2 Saturation 97.7 ABG Base Excess -11.3 FiO2 35% Sodium Potassium Chloride Carbon Dioxide Anion Gap BUN Creatinine Est GFR ( Amer) Est GFR (Non-Af Amer) Glucose Calcium Magnesium Total Bilirubin AST ALT Alkaline Phosphatase Total Protein Albumin Blood Type Antibody Screen 05/30/16 05/30/16 05/31/16 04:00 04:00 05:45 Creatine Kinase 110 CK-MB (CK-2) 3.10 Troponin I 0.270 0.136 Impressions: Abdomen Ultrasound 05/30/16 00:00 IMPRESSION: No gallstones are identified. There is thickening of the gallbladder ko and there is pericholecystic fluid. This was present on the previous CT scan. The possibility of an acalculous cholecystitis should be considered. Other findings as noted above Abdomen/Pelvis CT 05/30/16 01:00 IMPRESSION: There is relative increased density within the gallbladder lumen which could represent biliary sludge. Pericholecystic fluid is identified in the possibility of cholecystitis should be considered. Abdominal ultrasound may be of value for confirmation if clinically warranted. Bibasilar densities representing small bilateral pleural effusions with associated airspace consolidation which could represent atelectatic changes or basilar infiltrates. Other findings as noted above KUB X-Ray 05/30/16 11:41 IMPRESSION: NO RADIOGRAPHIC EVIDENCE FOR ACUTE ABDOMINAL DISEASE. Assessment & Plan - Diagnosis (1) Abdominal pain Qualifiers: Abdominal location: generalized Qualified Code(s): R10.84 - Generalized abdominal pain Plan: 1. Patient's imaging studies consistent with cholecystitis based on intraluminal densities of the gallbladder, thickened gallbladder wall, and pericholecystic fluid 2. Persisting leukocytosis, likely multifactorial. Agree with continued intravenous antibiotic therapy 3. Await results of HIDA scan; if positive, patient may benefit from interval cholecystostomy tube; will confer with radiology as indicated.
[2016-05-31] MEDS: FAMOTIDINE INJ/PF 20 MG/2 ML SDV IV SCH ×2 (09:18→22:07)
[2016-05-31] MEDS: GENTAMICIN SULFATE 140 MG in DEXTROSE 5%-WATER 100 ML IV SCH ×2 (09:19→22:32)
[2016-05-31] MEDS: FONDAPARINUX SODIUM INJ 7.5 MG/0.6 ML DISP.SYRIN SUBCUT SCH (10:07)
--- NOTE | 2016-05-31 11:33 | PROGRESS NOTE E ---
Progress Note NAME: RAI VOGT : 1955 AGE: 60Y DATE: 05/31/2016 ROOM: 601 CRITICAL CARE NOTE SUBJECTIVE: NOTE: I was with the patient from 8:20 a.m. to 9:00 a.m. reviewing patient's medications, examining the patient's medication, and discussions of care with the nurses. Forty minutes spent on this patient of critical care. The patient, as per the nurse, states that if the propofol is reduced or stopped, the patient awakens and moves all 4 extremities. At present, the patient is on propofol and hence does not respond to verbal commands. There is no arrhythmia seen. Her O2 saturations are good at 95, but still require ventilatory support and oxygen to keep her saturations up. Note that the patient's blood pressure is now stable at 111/77, but still requires 40 mcg of Fausto-Synephrine to keep her blood pressure up. There is no ventricular arrhythmia seen. There is no pedal edema. OBJECTIVE: GENERAL: On examination, the patient is sedated and intubated. Does not appear to fight the ventilator. She is well built, seems to be well nourished, although she seems to be critically ill. EYES: Pupils are equal, regular, reactive to light. HEAD: Atraumatic, normocephalic. EARS: Tympanic membranes are intact. NOSE: There is no deviated nasal septum. THROAT: There is an endotracheal tube down the throat. There is no redness of the oropharynx. NECK: Supple. There is no JVD. Carotids are equal. There is no bruit. There is no goiter. There is no lymphadenopathy. Trachea is central. LUNGS: Small area of absent breath sounds in both bases. There are dry crackles of pneumonia. No evidence of CHF. CARDIOVASCULAR: S1 and S2 are heard. There is no S3 gallop. There is no S4 gallop. There is a systolic murmur left sternal border of the apex. There is no rub. ABDOMEN: There is no hepatosplenomegaly. Bowel sounds are slightly increased. Abdomen is slightly distended. Due to the patient's sedation, cannot elicit tenderness. EXTREMITIES: Femorals are diminished. There are no femoral bruits. Leg pulses are diminished. There is no edema. There is left BKA. There is no cyanosis or clubbing. NEUROLOGICAL: Not examined. PSYCHIATRIC: Not examined, but as per the nurse, when the patient wakes up from the sedation, there is *------*. She can move all 4 extremities. DIAGNOSTIC STUDIES: The patient's EKG was reviewed by me personally. The EKG shows sinus rhythm, borderline T abnormalities anterior leads, but with nonspecific T flattening, but the ST depression has resolved. The patient's chest x-ray shows improvement of aeration in the right lung and there is still left pleural effusion and associated air spasticity on the left side. There is no pneumothorax. There is no evidence of heart failure. The chest x-ray was reviewed by me personally. The patient's white count has come down to 29,300, hemoglobin is down to 7.5, and hematocrit is 24.1, platelet count is 244,000. The patient's sodium is 143, potassium still low at 3.5, chloride is 117. The patient's CO2 is 14. The patient's BUN is 20, creatinine is 1.10. GFR is reduced at 51 mL, which glucose is 146. The patient's calcium is low at 7.2, magnesium is normal at 2.0. The patient's LFTs have gone up with an AST of 402, ALT of 904. Her direct bilirubin is high at 0.5, total bilirubin was 0.5, and Alk phos is 111. Albumin is 1.8, total protein is 3.8. Troponin I has triggered down to 0.136. The patient's ABGs on FiO2 of 35% shows a pH of 7.38, PCO2 of 21.3, PO2 of 101.5, and O2 saturation is 97.7%. The patient's C. difficile toxin is negative. Influenza A is negative. Influenza B is negative. This was done on 05/29. IMPRESSION: 1. ELEVATED TROPONIN I AND ISCHEMIC EKG CHANGES, MOST LIKELY SECONDARY TO HYPOTENSION DUE TO SEPTIC SHOCK AND HYPOXEMIA AND SEPSIS. Note that the EKG changes are much improved with ST segment depression back to normal and borderline T flattening in anterior leads. Also, the troponin I is trending down, but still since the patient is not able to give a history and the patient has multiple coronary artery risk factors, such as age, hypertension, and diabetes mellitus, would later recommend a stress test. 2. ABNORMAL EKG, MUCH IMPROVED. 3. ACUTE HYPOXIC RESPIRATORY FAILURE, BETTER, BUT STILL REQUIRES VENTILATORY SUPPORT AND OXYGEN. 4. BILATERAL PNEUMONIA WITH SMALL BILATERAL PLEURAL EFFUSIONS. THERE IS STILL A LEFT PLEURAL EFFUSION AND PNEUMONIA. THE RIGHT LOWER LOBE PNEUMONIA SEEMS TO BE MUCH IMPROVED. Continue antibiotics and ventilatory support. Continue respiratory treatments. 5. RIGHT-SIDED ABDOMINAL PAIN. Patient seen by surgeon and the plan is to do a cholecystostomy tube placement to *------* when the patient is in more stable condition. 6. SEPTIC SHOCK. Note that the patient's blood pressure has come up, but still requires Fausto-Synephrine, hence continue IV fluids, continue antibiotics, and continue Fausto-Synephrine. Will try to wean off the patient from Fausto-Synephrine if possible. 7. CROHN'S DISEASE, SEEMS TO BE STABLE AT PRESENT. 8. ANEMIA ? ETIOLOGY. May be due to hemodilution, but recommend blood transfusion for the patient. Will discuss with the hospitalist taking care of the patient. 9. HISTORY OF HYPERTENSION. At present, needing Fausto-Synephrine to keep her blood pressure up. 10. DIABETES MELLITUS TYPE 1 WITH ATHEROSCLEROSIS OF ARTERIES OF THE EXTREMITIES. NOTE: The patient is on Accu-Cheks and insulin coverage. 11. HYPOKALEMIA, STILL MILDLY LOW AT 3.5. Will replenish potassium. 12. HYPOMAGNESEMIA, RESOLVED. 13. LEFT BKA. RECOMMENDATIONS: Note that the patient is still critically ill with still multiple medical acute problems, such as needing pressors to keep her blood pressure up. Her EKG is improved and troponin I is trending down. She also has acute cholecystitis and Surgery has planned to continue the antibiotics and later do cholecystostomy tube placement per the acute cholecystitis, which is acalculous. I think the plan is to keep the patient on the ventilator until the surgery is done. Continue Fausto-Synephrine and try to wean it off. Would recommend continue current therapy, including steroids, wean off the steroids. Continue ventilator support and respiratory treatments. Note that the patient's blood pressure still requires pressors and hence cannot treat the patient for presumed coronary artery disease with nitrates or beta blockers. Later, will get an echocardiogram once the patient is off Fausto-Synephrine so that we get a true baseline function of her left ventricle. NOTE: Forty minutes of critical care time spent on this patient, including discussion of the care with caregivers on the case and also the nurse on the case. NOTE: More than 60% of the time spent in direct patient care and reviewing the patient's medications. NOTE: As per the nurse, the daughter is coming to see her mother after her class, which will be around 2:00 or 3:00. Will try to meet her and discuss code status with her. The patient still remains critically ill, although with slight improvement. Will follow with you. DICTATING PHYSICIAN: FERNANDO QUEVEDO M.D. [id number] PHY#: [id number] ID: [id number] JOB#: [id number] ACCT: [id number] cc: >
--- NOTE | 2016-05-31 12:21 | PDOC PROGRESS REPORT ---
Subjective Progress Note for:: 05/31/16 Subjective:: Reason for follow-up visit: Pneumonia, acalculous cholecystitis, septic shock Hospital course: Per H&P "RAI VOGT is a 60 year old female with a fairly complicated medical history, including known Crohn's disease, clotting disorder, currently on Arixtra for same, status post recent left below-knee amputation at [facility], type I diabetes mellitus, hypertension, mild anxiety and depression, without suicidal or homicidal ideation, esophageal reflux disease, asthma, chronic dysphagia, eczema, history of TIA who presents to the emergency room for evaluation of above complaints. Patient has been discussed with emergency room physician who evaluated the patient. Patient herself is quite sick and is able to provide little if any history. Emergency room physician notes are reviewed, revealing to patient complaints of abdominal pain. Tachycardic at 157 and hypoxic at 76% saturation upon EMS arrival, 95% saturation 12 L oxygen. Temperature 103.5. Had defecated diarrhea on herself. Generalized abdominal pain, right side greater than left, with shallow breathing, and exacerbation of abdominal pain with deep breath. No further information available this point in time. No friends or family are present. Old inpatient records are reviewed." I inherited her care for 05/30/16 to find her in the ICU, intubated and on mechanical ventilation with respiratory distress evidenced by increased work of breathing and attempts to breathe around the tube, she is on SIMV/PRVC with a rate of 12, tidal volume of 400, pressure support of 10, PEEP of 5 and an FiO2 of 70% but breathing 26 times per minute. She remains on both Fausto- Synephrine and levo fed, last CVP was 14 with mean arterial pressures greater than 80. She is on stress dose steroids, normal saline running wide open, day 2 of Zosyn, doxycycline, gentamicin, vancomycin. Vent settings were changed, analgesics added and the patient's respiratory distress resolved. this morning she remains on the vent and can answer yes/no questions appropriately, continues to c/o RUQ abd pain. denies chest pain, palpitations. ROS: limited as noted above; she is more alert and interactive, will follow commands. Physical Exam Vital Signs: Temp Pulse Resp BP Pulse Ox 99.1 F 81 24 H 98/77 L 97 05/31/16 04:47 05/31/16 08:08 05/31/16 08:08 05/31/16 06:18 05/31/16 08:08 Intake & Output 05/30/16 05/31/16 06/01/16 06:59 06:59 06:59 Intake Total 90032 7559 Output Total 702 2750 375 Balance 21301 4809 -375 Weight 69.3 kg 74.6 kg EXAM GENERAL: mod resp distress; well developed, well nourished; no obese; sedated, minimally interactive; appears chronically ill HEENT: normocephalic, atraumatic; no conjunctival injection, no scleral icterus ; oral mucosa moist; ETT in good position, trachea midline RESPIRATORY: no accessory muscle use, no increased WOB, good air entry bilaterally; no wheezes, or rhonchi; bilat L>R rales and crackles CARDIO: no JVD; RRR; no systolic murmur; borderline tachycardia GI: soft; nondistended; diminished bowel sounds; no rebound, rigidity, guarding ; grimace to palpation RUQ and epigastrium VASCULAR: no abdominal bruit; pale; 2+ radial; normal capillary refill EXTREMITIES: no palpable cords in calf; no clubbing, cyanosis, pedal edema; Lf BKA PSYCH: sedated but calm and cooperative, RASS ~0 SKIN: warm; dry; no petechiae; no telengectasias; no jaundice; Results Laboratory Results: 05/31/16 05:45 05/31/16 05:45 05/29/16 05/30/16 05/30/16 22:00 12:15 16:55 WBC RBC Hgb Hct MCV MCH MCHC RDW Plt Count Seg Neutrophils % Lymphocytes % Monocytes % Eosinophils % Basophils % Absolute Neutrophils Absolute Lymphocytes Absolute Monocytes Absolute Eosinophils Absolute Basophils Carbonic Acid 0.78 L 0.63 L HCO3/H2CO3 Ratio 17:1 19:1 ABG pH 7.34 L 7.38 ABG pCO2 25.9 L 21.0 L ABG pO2 99.8 87.9 ABG HCO3 13.6 L 12.1 L ABG O2 Saturation 97.3 96.8 ABG Base Excess -10.9 -11.6 FiO2 50% 40% Sodium Potassium Chloride Carbon Dioxide Anion Gap BUN Creatinine Est GFR ( Amer) Est GFR (Non-Af Amer) Glucose Calcium Magnesium Total Bilirubin AST ALT Alkaline Phosphatase Total Protein Albumin Blood Type B POSITIVE Antibody Screen NEGATIVE 05/31/16 05/31/16 05/31/16 05:45 05:45 06:02 WBC 29.3 H RBC 2.77 L Hgb 7.5 L Hct 24.1 L MCV 87 MCH 27.2 MCHC 31.4 L RDW 21.8 H Plt Count 244 Seg Neutrophils % Not Reportable Lymphocytes % Not Reportable Monocytes % Not Reportable Eosinophils % Not Reportable Basophils % Not Reportable Absolute Neutrophils Not Reportable Absolute Lymphocytes Not Reportable Absolute Monocytes Not Reportable Absolute Eosinophils Not Reportable Absolute Basophils Not Reportable Carbonic Acid 0.64 L HCO3/H2CO3 Ratio 19:1 ABG pH 7.38 ABG pCO2 21.3 L ABG pO2 101.5 H ABG HCO3 12.4 L ABG O2 Saturation 97.7 ABG Base Excess -11.3 FiO2 35% Sodium 143.1 Potassium 3.5 L Chloride 117 H Carbon Dioxide 14 L Anion Gap 12 BUN 20 Creatinine 1.10 Est GFR ( Amer) > 60 Est GFR (Non-Af Amer) 51 L Glucose 146 H Calcium 7.2 L Magnesium 2.0 Total Bilirubin 0.5 AST 402 H ALT 904 H Alkaline Phosphatase 111 Total Protein 3.8 L Albumin 1.8 L Blood Type Antibody Screen 05/30/16 05/30/16 05/31/16 04:00 04:00 05:45 Creatine Kinase 110 CK-MB (CK-2) 3.10 Troponin I 0.270 0.136 Impressions: Chest X-Ray 05/31/16 06:00 IMPRESSION: Improved aeration in the right lung. No pneumothorax. Assessment & Plan - Diagnosis (1) LLL pneumonia Qualifiers: Pneumonia type: due to unspecified organism Qualified Code(s): J18.1 - Lobar pneumonia, unspecified organism Is this a current diagnosis for this admission?: YesPlan: stable, maybe some improved. Given the patient's immunocompromised state due to treatment for underlying Crohn's disease with biologic agents and steroids plus her hospitalization within the last 30 days, we'll continue broad-spectrum quadruple antibiotic therapy. Pulmonology has been consulted to assist with mechanical ventilation and consider the possibility of bronchoscopy for BAL diagnostic purposes. Follow-up on tracheal aspirate and blood cultures to hopefully narrow the antibiotic spectrum. (2) Acute acalculous cholecystitis Is this a current diagnosis for this admission?: YesPlan: d/w'd general surgery, wants to ck HIDA before choosing next intervention - percutaneous drain vs surgery. Continue broad-spectrum antibiotics and supportive care otherwise. (3) Septic shock Is this a current diagnosis for this admission?: YesPlan: improved but not resolved, still requiring vasopressor support. Continue to monitor and maintain CVP greater than 10 less than 20 with IV fluids and wean vasopressors as possible. Continue stress dose steroids. Monitor and maintain hematocrit greater than 30. Optimize blood sugar control at less than 200. (4) Iron deficiency anemia due to chronic blood loss Is this a current diagnosis for this admission?: YesPlan: significantly worse without evidence for acute blood loss at bedside. likely 2/ 2 sepsis but pt is on high risk medications including ASA and arixtra for her hypercoaguable state/previous thromboembolic disease. transfuse 2U PRBCs and monitor. d/c ASA, may need to d/c arixtra if continues to drop after transfusion. send stool for hemoccult testing. (5) Acute respiratory failure with hypoxia Is this a current diagnosis for this admission?: YesPlan: stable but still requiring ventilator support. dr stewart managing the vent. (6) Non-ST elevation myocardial infarction (NSTEMI), type 2 Is this a current diagnosis for this admission?: YesPlan: improved with troponins trending down. Likely demand ischemia from the septic shock and not cause and affect. Dr. Douglas consulted for cardiology input. Beta blockers contraindicated due to hypotension. ASA contraindicated due to worsening anemia. Hold on statin therapy for now due to rising LFTs. (7) Hypokalemia Is this a current diagnosis for this admission?: YesPlan: unchanged. Monitor and replace utilizing electrolyte protocol. (8) Hypomagnesemia Is this a current diagnosis for this admission?: YesPlan: Continue to monitor and replace. (9) Hypercoagulable state Is this a current diagnosis for this admission?: YesPlan: Problematic and high risk for recurrent thromboembolic disease due to immobility associated with critical illness but worsening anemia as discussed above. Continue Arixtra for now, home dose is not known but as this is a chronic problem and medication for her will continue at 7.5 mg subcutaneous daily based on her weight. (10) Crohns disease Qualifiers: Gastrointestinal tract location: unspecified location Digestive disease complication type: unspecified complication Qualified Code(s): K50.919 - Crohn's disease, unspecified, with unspecified complications Is this a current diagnosis for this admission?: Yes (12) Hx of BKA Qualifiers: Laterality: left Qualified Code(s): Z89.512 - Acquired absence of left leg below knee (14) Diabetes mellitus type 1 Qualifiers: Diabetes mellitus complication status: without complication Qualified Code(s): E10.9 - Type 1 diabetes mellitus without complications - Time Time Spent with patient: 35 or more minutes Medications reviewed and adjusted accordingly: Yes
[2016-05-31 12:36] LABS: LIPASE 43.2 U/L (23-300)
[2016-05-31 12:47] LABS: AMYLASE < 30 U/L (30-110)
--- NOTE | 2016-05-31 13:23 | EKG REPORT ---
SEVERITY:- BORDERLINE ECG - SINUS RHYTHM BORDERLINE T ABNORMALITIES, ANTERIOR LEADS : Confirmed by: Kermit Champagne MD 31-May-2016 13:22:21
--- NOTE | 2016-05-31 14:22 | PDOC PROGRESS REPORT ---
Subjective Progress Note for:: 05/31/16 Subjective:: intubated,awake Physical Exam Vital Signs: Temp Pulse Resp BP Pulse Ox 99.1 F 82 15 98/77 L 99 05/31/16 04:47 05/30/16 20:10 05/31/16 06:18 05/31/16 06:18 05/31/16 06:18 Intake & Output 05/30/16 05/31/16 06/01/16 06:59 06:59 06:59 Intake Total 41863 7559 Output Total 702 2750 200 Balance 98273 4809 -200 Weight 69.3 kg 74.6 kg General appearance: PRESENT: cooperative, disheveled, mild distress, obese Head exam: PRESENT: atraumatic, normocephalic Eye exam: PRESENT: conjunctiva pale, EOMI Mouth exam: PRESENT: dry mucosa, neck supple, other - ET tube in place Neck exam: ABSENT: carotid bruit, JVD, lymphadenopathy, thyromegaly Respiratory exam: PRESENT: crackles, decreased breath sounds, prolonged expiratory phas, rhonchi, symmetrical, unlabored Cardiovascular exam: PRESENT: RRR, +S1, +S2 Pulses: PRESENT: normal radial pulses GI/Abdominal exam: PRESENT: distended, guarding, tenderness Rectal exam: PRESENT: deferred Gentrourinary exam: PRESENT: indwelling catheter Musculoskeletal exam: PRESENT: normal inspection Neurological exam: PRESENT: awake Skin exam: PRESENT: dry, warm Results Laboratory Results: 05/31/16 05:45 05/31/16 05:45 05/29/16 05/30/16 05/30/16 22:00 09:17 12:15 WBC RBC Hgb Hct MCV MCH MCHC RDW Plt Count Seg Neutrophils % Lymphocytes % Monocytes % Eosinophils % Basophils % Absolute Neutrophils Absolute Lymphocytes Absolute Monocytes Absolute Eosinophils Absolute Basophils Carbonic Acid 0.82 L 0.78 L HCO3/H2CO3 Ratio 15:1 17:1 ABG pH 7.30 L 7.34 L ABG pCO2 27.3 L 25.9 L ABG pO2 88.6 99.8 ABG HCO3 13.0 L 13.6 L ABG O2 Saturation 96.1 97.3 ABG Base Excess -11.7 -10.9 FiO2 50% 50% Sodium Potassium Chloride Carbon Dioxide Anion Gap BUN Creatinine Est GFR ( Amer) Est GFR (Non-Af Amer) Glucose Calcium Magnesium Total Bilirubin AST ALT Alkaline Phosphatase Total Protein Albumin Blood Type B POSITIVE Antibody Screen NEGATIVE 05/30/16 05/31/16 05/31/16 16:55 05:45 05:45 WBC 29.3 H RBC 2.77 L Hgb 7.5 L Hct 24.1 L MCV 87 MCH 27.2 MCHC 31.4 L RDW 21.8 H Plt Count 244 Seg Neutrophils % Not Reportable Lymphocytes % Not Reportable Monocytes % Not Reportable Eosinophils % Not Reportable Basophils % Not Reportable Absolute Neutrophils Not Reportable Absolute Lymphocytes Not Reportable Absolute Monocytes Not Reportable Absolute Eosinophils Not Reportable Absolute Basophils Not Reportable Carbonic Acid 0.63 L HCO3/H2CO3 Ratio 19:1 ABG pH 7.38 ABG pCO2 21.0 L ABG pO2 87.9 ABG HCO3 12.1 L ABG O2 Saturation 96.8 ABG Base Excess -11.6 FiO2 40% Sodium 143.1 Potassium 3.5 L Chloride 117 H Carbon Dioxide 14 L Anion Gap 12 BUN 20 Creatinine 1.10 Est GFR ( Amer) > 60 Est GFR (Non-Af Amer) 51 L Glucose 146 H Calcium 7.2 L Magnesium 2.0 Total Bilirubin 0.5 AST 402 H ALT 904 H Alkaline Phosphatase 111 Total Protein 3.8 L Albumin 1.8 L Blood Type Antibody Screen 05/31/16 06:02 WBC RBC Hgb Hct MCV MCH MCHC RDW Plt Count Seg Neutrophils % Lymphocytes % Monocytes % Eosinophils % Basophils % Absolute Neutrophils Absolute Lymphocytes Absolute Monocytes Absolute Eosinophils Absolute Basophils Carbonic Acid 0.64 L HCO3/H2CO3 Ratio 19:1 ABG pH 7.38 ABG pCO2 21.3 L ABG pO2 101.5 H ABG HCO3 12.4 L ABG O2 Saturation 97.7 ABG Base Excess -11.3 FiO2 35% Sodium Potassium Chloride Carbon Dioxide Anion Gap BUN Creatinine Est GFR ( Amer) Est GFR (Non-Af Amer) Glucose Calcium Magnesium Total Bilirubin AST ALT Alkaline Phosphatase Total Protein Albumin Blood Type Antibody Screen 05/30/16 05/30/16 05/31/16 04:00 04:00 05:45 Creatine Kinase 110 CK-MB (CK-2) 3.10 Troponin I 0.270 0.136 Impressions: Abdomen Ultrasound 05/30/16 00:00 IMPRESSION: No gallstones are identified. There is thickening of the gallbladder ko and there is pericholecystic fluid. This was present on the previous CT scan. The possibility of an acalculous cholecystitis should be considered. Other findings as noted above Abdomen/Pelvis CT 05/30/16 01:00 IMPRESSION: There is relative increased density within the gallbladder lumen which could represent biliary sludge. Pericholecystic fluid is identified in the possibility of cholecystitis should be considered. Abdominal ultrasound may be of value for confirmation if clinically warranted. Bibasilar densities representing small bilateral pleural effusions with associated airspace consolidation which could represent atelectatic changes or basilar infiltrates. Other findings as noted above KUB X-Ray 05/30/16 11:41 IMPRESSION: NO RADIOGRAPHIC EVIDENCE FOR ACUTE ABDOMINAL DISEASE. Assessment & Plan - Diagnosis (1) Abnormal CT scan, gallbladder Is this a current diagnosis for this admission?: YesPlan: add garza per surgery (2) Acute respiratory failure with hypoxia Is this a current diagnosis for this admission?: YesPlan: stable (3) LLL pneumonia Qualifiers: Pneumonia type: due to unspecified organism Qualified Code(s): J18.1 - Lobar pneumonia, unspecified organism Is this a current diagnosis for this admission?: Yes (4) Septic shock Is this a current diagnosis for this admission?: Yes - Time Critical Time spent with patient: 35 or more minutes - 50 min discussed with RN ; discussed with Dr Anais Calle
[2016-05-31] MEDS ORDERED: FUROSEMIDE INJ/PF 40 MG/4 ML SDV IV ONE (15:46)
[2016-05-31] MEDS ORDERED: ACETAMINOPHEN 650 MG SUPP.RECT PR ONE (15:46)
[2016-05-31] MEDS ORDERED: DIPHENHYDRAMINE HCL 50 MG/ML VIAL IV ONE (15:46)
[2016-05-31] MEDS: DOXYCYCLINE HYCLATE 100 MG in DEXTROSE 5%-WATER 250 ML IV SCH (16:12)
[2016-05-31] MEDS: MORPHINE SULFATE 10 MG/ML INJ IV PRN (20:51)
[2016-06-01 00:45] LABS: HEMATOCRIT 29.4 % (36.0-47.0); HEMOGLOBIN 9.5 g/dL (12.0-15.5); HGB HCT DIFFERENCE -0.9; MEAN CORPUSCULAR HEMOGLOBIN 27.4 pg (27.0-33.4); MEAN CORPUSCULAR HGB CONC 32.3 g/dL (32.0-36.0); MEAN CORPUSCULAR VOLUME 85 fl (80-97); RED BLOOD COUNT 3.47 10^6/uL (3.72-5.28); RED CELL DISTRIBUTION WIDTH 18.7 % (11.5-14.0); WHITE BLOOD COUNT 24.3 10^3/uL (4.0-10.5)
[2016-06-01 00:56] LABS: ANISOCYTOSIS 1+; BAND NEUTROPHILS % (MANUAL) 1 % (3-5); BASOPHILS % (MANUAL) 0 % (0-2); EOSINOPHILS % (MANUAL) 0 % (0-6); LYMPHOCYTES % (MANUAL) 6 % (13-45); OVALOCYTES SLIGHT; POLYCHROMASIA SLIGHT; TOTAL CELLS COUNTED 100; TOXIC GRANULATION 1+
[2016-06-01 01:15] LABS: GENTAMICIN-PEAK 11.7 ug/mL (5.0-10.0)
[2016-06-01] MEDS: PIPERACILLIN SODIUM/TAZOBACTAM 4.5 GM in NORMAL SALINE 100 ML IV SCH ×4 (02:22→22:09)
[2016-06-01] MEDS: HYDROCORTISONE SOD SUCCINATE INJ/PF 100 MG/2 ML SDV IV SCH ×3 (02:24→16:30)
[2016-06-01] MEDS: MORPHINE SULFATE 10 MG/ML INJ IV SCH ×5 (02:26→17:46)
[2016-06-01] MEDS: PROPOFOL 100 ML IV PRN ×5 (02:29→22:09)
[2016-06-01] MEDS: DOXYCYCLINE HYCLATE 100 MG in DEXTROSE 5%-WATER 250 ML IV SCH (03:08)
[2016-06-01] MEDS: VANCOMYCIN HCL 1,000 MG in DEXTROSE 5%-WATER 250 ML IV SCH (05:04)
[2016-06-01 06:13] LABS: ARTERIAL BLOOD BASE EXCESS -10.7 mmol/L; ARTERIAL BLOOD O2 SATURATION 96.6 % (94-98)
[2016-06-01 06:21] LABS: ALANINE AMINOTRANSFERASE 758 U/L (9-52); ALKALINE PHOSPHATASE 109 U/L (38-126); ANION GAP 14 (5-19); ASPARTATE AMINO TRANSFERASE 126 U/L (14-36); BILIRUBIN,DIRECT 0.5 mg/dL (0.0-0.4); BILIRUBIN,TOTAL 0.5 mg/dL (0.2-1.3); BLOOD UREA NITROGEN 22 mg/dL (7-20); CALCIUM 7.8 mg/dL (8.4-10.2); CARBON DIOXIDE 14 mmol/L (22-30); CHLORIDE 117 mmol/L (98-107); CREATININE RESULT 1.39 mg/dL (0.52-1.25); GLUCOSE 166 mg/dL (75-110); SODIUM 144.6 mmol/L (137-145)
[2016-06-01 06:23] LABS: HEMATOCRIT 27.8 % (36.0-47.0); HEMOGLOBIN 9.2 g/dL (12.0-15.5); HGB HCT DIFFERENCE -0.2; MEAN CORPUSCULAR HGB CONC 33.1 g/dL (32.0-36.0); MEAN CORPUSCULAR VOLUME 85 fl (80-97); RED BLOOD COUNT 3.29 10^6/uL (3.72-5.28); RED CELL DISTRIBUTION WIDTH 18.9 % (11.5-14.0); WHITE BLOOD COUNT 21.3 10^3/uL (4.0-10.5)
[2016-06-01 07:17] LABS: BAND NEUTROPHILS % (MANUAL) 1 % (3-5); BASOPHILS % (MANUAL) 0 % (0-2); EOSINOPHILS % (MANUAL) 0 % (0-6); LYMPHOCYTES % (MANUAL) 3 % (13-45); NUCLEATED RED BLOOD CELLS 1 /100 WBC (0); TOTAL CELLS COUNTED 100
[2016-06-01 07:18] LABS: ANISOCYTOSIS 1+; TOXIC GRANULATION 1+
[2016-06-01 07:19] LABS: OVALOCYTES SLIGHT; POLYCHROMASIA SLIGHT; TEAR DROP CELLS SLIGHT
[2016-06-01 07:34] LABS: PATH REVIEW PATHOLOGIST REVIEWED
[2016-06-01] MEDS: POTASSIUM CHLORIDE 20 MEQ/50 ML RTU IV SCH ×3 (07:42→11:53)
[2016-06-01] MEDS: IPRATROPIUM/ALBUTEROL 0.5-2.5 MG/3 ML AMPUL NEB SCH ×3 (07:42→20:45)
[2016-06-01] MEDS: NORMAL SALINE 1000 ML 1,000 ML IV PRN ×2 (07:43→17:46)
[2016-06-01] MEDS ORDERED: FUROSEMIDE INJ/PF 20 MG/2 ML SDV IV ONE ×2 (08:17→12:15)
--- NOTE | 2016-06-01 11:24 | PDOC PROGRESS REPORT ---
Subjective Progress Note for:: 06/01/16 Subjective:: intubated,awake Physical Exam Vital Signs: Temp Pulse Resp BP Pulse Ox 98.2 F 71 24 H 109/85 96 06/01/16 05:41 06/01/16 05:41 06/01/16 06:27 06/01/16 06:27 06/01/16 06:27 Intake & Output 05/31/16 06/01/16 06/02/16 06:59 06:59 06:59 Intake Total 7596 5891 Output Total 3285 2896 Balance 9068 9007 Weight 74.6 kg 78 kg General appearance: PRESENT: cooperative, disheveled, obese Head exam: PRESENT: atraumatic, normocephalic Eye exam: PRESENT: conjunctiva pale, EOMI Neck exam: PRESENT: carotid bruit Respiratory exam: PRESENT: decreased breath sounds, prolonged expiratory phas, rales, rhonchi, symmetrical, unlabored Cardiovascular exam: PRESENT: RRR, +S1, +S2 Pulses: PRESENT: normal radial pulses GI/Abdominal exam: PRESENT: guarding, tenderness Rectal exam: PRESENT: deferred Musculoskeletal exam: PRESENT: normal inspection Neurological exam: PRESENT: awake Skin exam: PRESENT: dry, warm Results Laboratory Results: 06/01/16 05:50 06/01/16 05:50 05/29/16 05/30/16 05/31/16 22:00 04:00 11:41 WBC 33.2 H* RBC 3.38 L Hgb 9.1 L Hct 29.7 L MCV 88 MCH 26.9 L MCHC 30.6 L RDW 21.8 H Plt Count 309 Seg Neutrophils % Lymphocytes % Monocytes % Eosinophils % Basophils % Absolute Neutrophils Absolute Lymphocytes Absolute Monocytes Absolute Eosinophils Absolute Basophils Carbonic Acid HCO3/H2CO3 Ratio ABG pH ABG pCO2 ABG pO2 ABG HCO3 ABG O2 Saturation ABG Base Excess FiO2 Sodium Potassium Chloride Carbon Dioxide Anion Gap BUN Creatinine Est GFR ( Amer) Est GFR (Non-Af Amer) Glucose Calcium Magnesium Total Bilirubin AST ALT Alkaline Phosphatase Total Protein Albumin Amylase < 30 L Lipase 43.2 Blood Type B POSITIVE Antibody Screen NEGATIVE 06/01/16 06/01/16 06/01/16 00:05 05:50 05:50 WBC 24.3 H 21.3 H RBC 3.47 L 3.29 L Hgb 9.5 L 9.2 L Hct 29.4 L 27.8 L MCV 85 85 MCH 27.4 28.0 MCHC 32.3 33.1 RDW 18.7 H 18.9 H Plt Count 183 178 Seg Neutrophils % Not Reportable Not Reportable Lymphocytes % Not Reportable Not Reportable Monocytes % Not Reportable Not Reportable Eosinophils % Not Reportable Not Reportable Basophils % Not Reportable Not Reportable Absolute Neutrophils Not Reportable Not Reportable Absolute Lymphocytes Not Reportable Not Reportable Absolute Monocytes Not Reportable Not Reportable Absolute Eosinophils Not Reportable Not Reportable Absolute Basophils Not Reportable Not Reportable Carbonic Acid 0.61 L HCO3/H2CO3 Ratio 20:1 ABG pH 7.40 ABG pCO2 20.4 L* ABG pO2 84.0 ABG HCO3 12.4 L ABG O2 Saturation 96.6 ABG Base Excess -10.7 FiO2 28% Sodium Potassium Chloride Carbon Dioxide Anion Gap BUN Creatinine Est GFR ( Amer) Est GFR (Non-Af Amer) Glucose Calcium Magnesium Total Bilirubin AST ALT Alkaline Phosphatase Total Protein Albumin Amylase Lipase Blood Type Antibody Screen 06/01/16 05:50 WBC RBC Hgb Hct MCV MCH MCHC RDW Plt Count Seg Neutrophils % Lymphocytes % Monocytes % Eosinophils % Basophils % Absolute Neutrophils Absolute Lymphocytes Absolute Monocytes Absolute Eosinophils Absolute Basophils Carbonic Acid HCO3/H2CO3 Ratio ABG pH ABG pCO2 ABG pO2 ABG HCO3 ABG O2 Saturation ABG Base Excess FiO2 Sodium 144.6 Potassium 3.0 L* Chloride 117 H Carbon Dioxide 14 L Anion Gap 14 BUN 22 H Creatinine 1.39 H Est GFR ( Amer) 47 L Est GFR (Non-Af Amer) 39 L Glucose 166 H Calcium 7.8 L Magnesium 2.0 Total Bilirubin 0.5 AST 126 H ALT 758 H Alkaline Phosphatase 109 Total Protein 4.0 L Albumin 2.0 L Amylase Lipase Blood Type Antibody Screen 05/30/16 05/30/16 05/31/16 04:00 04:00 05:45 Creatine Kinase 110 CK-MB (CK-2) 3.10 Troponin I 0.270 0.136 Impressions: Abdomen Ultrasound 05/30/16 00:00 IMPRESSION: No gallstones are identified. There is thickening of the gallbladder ko and there is pericholecystic fluid. This was present on the previous CT scan. The possibility of an acalculous cholecystitis should be considered. Other findings as noted above Abdomen/Pelvis CT 05/30/16 01:00 IMPRESSION: There is relative increased density within the gallbladder lumen which could represent biliary sludge. Pericholecystic fluid is identified in the possibility of cholecystitis should be considered. Abdominal ultrasound may be of value for confirmation if clinically warranted. Bibasilar densities representing small bilateral pleural effusions with associated airspace consolidation which could represent atelectatic changes or basilar infiltrates. Other findings as noted above KUB X-Ray 05/30/16 11:41 IMPRESSION: NO RADIOGRAPHIC EVIDENCE FOR ACUTE ABDOMINAL DISEASE. Hepatobiliary Scan Nuclear Medicine 05/31/16 00:00 IMPRESSION: NO CYSTIC OR COMMON DUCT OBSTRUCTION. Chest X-Ray 06/01/16 06:00 IMPRESSION: SLIGHT INCREASE IN AIRSPACE DISEASE IN THE RIGHT LUNG. NO CHANGE ON THE LEFT. Assessment & Plan - Diagnosis (1) Abnormal CT scan, gallbladder Is this a current diagnosis for this admission?: YesPlan: add garza per surgery (2) Acute respiratory failure with hypoxia Is this a current diagnosis for this admission?: Yes (3) LLL pneumonia Qualifiers: Pneumonia type: due to unspecified organism Qualified Code(s): J18.1 - Lobar pneumonia, unspecified organism Is this a current diagnosis for this admission?: Yes (4) Septic shock Is this a current diagnosis for this admission?: Yes - Time Critical Time spent with patient: 35 or more minutes
[2016-06-01] MEDS: FAMOTIDINE INJ/PF 20 MG/2 ML SDV IV SCH (11:51)
[2016-06-01] MEDS: METRONIDAZOLE 500 MG/NS RTU 100 ML IV SCH ×3 (11:52→22:08)
[2016-06-01] MEDS: FONDAPARINUX SODIUM INJ 7.5 MG/0.6 ML DISP.SYRIN SUBCUT SCH (12:03)
--- NOTE | 2016-06-01 17:15 | PDOC PROGRESS REPORT ---
Subjective Progress Note for:: 06/01/16 Subjective:: Patient is still intubated mechanically ventilated She's awake when sedation is decreased She does not appear in any distress at home. Tongue appears swollen, without any swelling of the lips or periorbital areas Physical Exam Vital Signs: Temp Pulse Resp BP Pulse Ox 99.7 F 84 18 125/93 H 95 06/01/16 16:00 06/01/16 16:00 06/01/16 16:00 06/01/16 16:00 06/01/16 16:00 Intake & Output 05/31/16 06/01/16 06/02/16 00:59 00:59 00:59 Intake Total 83305 6595 2818 Output Total 2775 3725 2175 Balance 82854 2870 643 Weight 69.3 kg 74.6 kg 78 kg General appearance: PRESENT: no acute distress, other - Acute and chronically ill-looking very pale Head exam: PRESENT: atraumatic, normocephalic Eye exam: PRESENT: conjunctiva pink, EOMI, PERRLA. ABSENT: scleral icterus Mouth exam: PRESENT: other - Swollen tongue and no mucosal lesions Neck exam: ABSENT: carotid bruit, JVD, lymphadenopathy, thyromegaly Respiratory exam: PRESENT: clear to auscultation jenaro. ABSENT: rales, rhonchi, wheezes Cardiovascular exam: PRESENT: RRR. ABSENT: diastolic murmur, rubs, systolic murmur Pulses: PRESENT: normal dorsalis pedis pul GI/Abdominal exam: PRESENT: hypoactive bowel sounds, normal bowel sounds, soft. ABSENT: distended, guarding, organolmegaly, rebound, tenderness Results Laboratory Results: 06/01/16 05:50 06/01/16 05:50 05/29/16 05/30/16 06/01/16 22:00 04:00 00:05 WBC 33.2 H* 24.3 H RBC 3.38 L 3.47 L Hgb 9.1 L 9.5 L Hct 29.7 L 29.4 L MCV 88 85 MCH 26.9 L 27.4 MCHC 30.6 L 32.3 RDW 21.8 H 18.7 H Plt Count 309 183 Seg Neutrophils % Not Reportable Lymphocytes % Not Reportable Monocytes % Not Reportable Eosinophils % Not Reportable Basophils % Not Reportable Absolute Neutrophils Not Reportable Absolute Lymphocytes Not Reportable Absolute Monocytes Not Reportable Absolute Eosinophils Not Reportable Absolute Basophils Not Reportable Carbonic Acid HCO3/H2CO3 Ratio ABG pH ABG pCO2 ABG pO2 ABG HCO3 ABG O2 Saturation ABG Base Excess FiO2 Sodium Potassium Chloride Carbon Dioxide Anion Gap BUN Creatinine Est GFR ( Amer) Est GFR (Non-Af Amer) Glucose Lactic Acid Calcium Magnesium Total Bilirubin AST ALT Alkaline Phosphatase Total Protein Albumin Blood Type B POSITIVE Antibody Screen NEGATIVE 06/01/16 06/01/16 06/01/16 05:50 05:50 05:50 WBC 21.3 H RBC 3.29 L Hgb 9.2 L Hct 27.8 L MCV 85 MCH 28.0 MCHC 33.1 RDW 18.9 H Plt Count 178 Seg Neutrophils % Not Reportable Lymphocytes % Not Reportable Monocytes % Not Reportable Eosinophils % Not Reportable Basophils % Not Reportable Absolute Neutrophils Not Reportable Absolute Lymphocytes Not Reportable Absolute Monocytes Not Reportable Absolute Eosinophils Not Reportable Absolute Basophils Not Reportable Carbonic Acid 0.61 L HCO3/H2CO3 Ratio 20:1 ABG pH 7.40 ABG pCO2 20.4 L* ABG pO2 84.0 ABG HCO3 12.4 L ABG O2 Saturation 96.6 ABG Base Excess -10.7 FiO2 28% Sodium 144.6 Potassium 3.0 L* Chloride 117 H Carbon Dioxide 14 L Anion Gap 14 BUN 22 H Creatinine 1.39 H Est GFR ( Amer) 47 L Est GFR (Non-Af Amer) 39 L Glucose 166 H Lactic Acid Calcium 7.8 L Magnesium 2.0 Total Bilirubin 0.5 AST 126 H ALT 758 H Alkaline Phosphatase 109 Total Protein 4.0 L Albumin 2.0 L Blood Type Antibody Screen 06/01/16 12:50 WBC RBC Hgb Hct MCV MCH MCHC RDW Plt Count Seg Neutrophils % Lymphocytes % Monocytes % Eosinophils % Basophils % Absolute Neutrophils Absolute Lymphocytes Absolute Monocytes Absolute Eosinophils Absolute Basophils Carbonic Acid HCO3/H2CO3 Ratio ABG pH ABG pCO2 ABG pO2 ABG HCO3 ABG O2 Saturation ABG Base Excess FiO2 Sodium Potassium Chloride Carbon Dioxide Anion Gap BUN Creatinine Est GFR ( Amer) Est GFR (Non-Af Amer) Glucose Lactic Acid 2.3 H Calcium Magnesium Total Bilirubin AST ALT Alkaline Phosphatase Total Protein Albumin Blood Type Antibody Screen 05/30/16 05/30/16 05/31/16 04:00 04:00 05:45 Creatine Kinase 110 CK-MB (CK-2) 3.10 Troponin I 0.270 0.136 Impressions: Abdomen Ultrasound 05/30/16 00:00 IMPRESSION: No gallstones are identified. There is thickening of the gallbladder ko and there is pericholecystic fluid. This was present on the previous CT scan. The possibility of an acalculous cholecystitis should be considered. Other findings as noted above Abdomen/Pelvis CT 05/30/16 01:00 IMPRESSION: There is relative increased density within the gallbladder lumen which could represent biliary sludge. Pericholecystic fluid is identified in the possibility of cholecystitis should be considered. Abdominal ultrasound may be of value for confirmation if clinically warranted. Bibasilar densities representing small bilateral pleural effusions with associated airspace consolidation which could represent atelectatic changes or basilar infiltrates. Other findings as noted above KUB X-Ray 05/30/16 11:41 IMPRESSION: NO RADIOGRAPHIC EVIDENCE FOR ACUTE ABDOMINAL DISEASE. Hepatobiliary Scan Nuclear Medicine 05/31/16 00:00 IMPRESSION: NO CYSTIC OR COMMON DUCT OBSTRUCTION. Chest X-Ray 06/01/16 06:00 IMPRESSION: SLIGHT INCREASE IN AIRSPACE DISEASE IN THE RIGHT LUNG. NO CHANGE ON THE LEFT. Assessment & Plan - Diagnosis (1) Acute acalculous cholecystitis Is this a current diagnosis for this admission?: YesPlan: hida scan was normal Patient was found not to be a candidate for cholecystostomy tube continue marisela dao (2) Acute respiratory failure Qualifiers: Respiratory failure complication: unspecified whether with hypoxia or hypercapnia Qualified Code(s): J96.00 - Acute respiratory failure, unspecified whether with hypoxia or hypercapnia Is this a current diagnosis for this admission?: Yes (3) Hypokalemia Is this a current diagnosis for this admission?: YesPlan: replace (4) LLL pneumonia Qualifiers: Pneumonia type: due to unspecified organism Qualified Code(s): J18.1 - Lobar pneumonia, unspecified organism Is this a current diagnosis for this admission?: Yes (5) Non-ST elevation myocardial infarction (NSTEMI), type 2 Is this a current diagnosis for this admission?: YesPlan: secondary to shock - type 2 (6) Septic shock Is this a current diagnosis for this admission?: YesPlan: improving still on pressors lactic acid in downward range - Time Time Spent with patient: 25-34 minutes
[2016-06-01 18:50] LABS: ANION GAP 13 (5-19); BLOOD UREA NITROGEN 24 mg/dL (7-20); CALCIUM 8.2 mg/dL (8.4-10.2); CARBON DIOXIDE 15 mmol/L (22-30); CHLORIDE 120 mmol/L (98-107); CREATININE RESULT 1.58 mg/dL (0.52-1.25); GLUCOSE 115 mg/dL (75-110); POTASSIUM 3.3 mmol/L (3.6-5.0); SODIUM 148.2 mmol/L (137-145)
[2016-06-01 20:00] LABS: ARTERIAL BLOOD BASE EXCESS -9.1 mmol/L; ARTERIAL BLOOD O2 SATURATION 95.1 % (94-98)
[2016-06-01] MEDS ORDERED: GENTAMICIN SULFATE 160 MG in DEXTROSE 5%-WATER 100 ML IV SCH (22:00)
[2016-06-02] MEDS: FAMOTIDINE INJ/PF 20 MG/2 ML SDV IV SCH ×3 (00:06→22:23)
[2016-06-02] MEDS: MORPHINE SULFATE 10 MG/ML INJ IV SCH ×7 (00:06→22:23)
[2016-06-02] MEDS: HYDROCORTISONE SOD SUCCINATE INJ/PF 100 MG/2 ML SDV IV SCH ×3 (00:06→22:23)
[2016-06-02] MEDS: POTASSIUM CHLORIDE 20 MEQ/50 ML RTU IV SCH ×4 (00:07→10:34)
[2016-06-02] MEDS ORDERED: FUROSEMIDE INJ/PF 40 MG/4 ML SDV ONE (00:53)
--- NOTE | 2016-06-02 00:58 | PROGRESS NOTE E ---
Progress Note NAME: RAI VOGT : 1955 AGE: 60Y DATE: 06/01/2016 ROOM: 601 SUBJECTIVE: NOTE: I was seeing the patient from 8:00 a.m. to 8:35 a.m. The patient is still intubated but she is off the pressors and the blood pressure is stable. There is no arrhythmia seen on the monitor. The patient is awake and gestures she has no chest pain but has some shortness of breath but she is not fighting the ventilator. There is no pedal edema. There is no leg edema. There are no TIA or CVA symptoms. As mentioned earlier, the patient is off pressors. OBJECTIVE: GENERAL: On examination, the patient is less sedated but continues to be intubated. She does not appear to fight the ventilator. She is well built and seems to be well nourished, but seems to be critically ill. VITAL SIGNS: At 8 a.m., the patient is afebrile with a temperature of 97.3 degree, pulse 76 beats per minute and regular, blood pressure 124/92, respirations are 15 per minute, and 02 sats are 98% on mechanical ventilator with FiO2 of 28%. HEENT: Head: Atraumatic, normocephalic. Eyes: Pupils are equal, regular, reactive to light. Note that the patient has mild tongue swelling but no swelling of the oropharynx. ENT is negative otherwise. NECK: Supple. There is no JVD. Carotids are equal. There is no bruit. There is no goiter. There is no lymphadenopathy. Trachea is central. LUNGS: Show still small area of absent breath sounds in the bases. There are dry crackles of pneumonia, right greater than left. There is no evidence of CHF. CARDIOVASCULAR: S1 and S2 are heard. There is no S3 gallop. There is no S4 gallop. There is a systolic murmur left sternal border of the apex. There is no rub. ABDOMEN: Soft. There is no hepatosplenomegaly. Bowel sounds are normal. Abdomen does not seem to be distended. There is some mild discomfort on palpating the right upper quadrant. EXTREMITIES: Femorals are diminished. There are no femoral bruits. Leg pulses are diminished. There is no edema. There is no femoral bruits. 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 There is no cyanosis or clubbing. NEUROLOGICAL: The patient is awake and alert but intubated and does not talk but follow commands. PSYCHIATRIC: The patient does not appear to be agitated. DIAGNOSTIC STUDIES: The patient's 24-hour intake has been 2377; output is 2825. The patient's chest x-ray shows bilateral airspace disease and pleural effusions, left greater than right. There is no evidence of congestive heart failure. The patient's white count has come down to 21,300, hemoglobin is 9.2, hematocrit is 27.8 and the platelet count is 178,000. The patient's sodium is 144.5 and patient's potassium is 3.0, chloride is 117, CO2 is 14. The patient's BUN is 22, creatinine is 1.39, and the GFR is reduced to 39 mL, which is acute kidney disease stage 3. Glucose is 159, calcium is 7.8. Liver function tests show abnormal AST of 126 and ALT of 758, alkaline phosphatase is 109. The patient's albumin is 2.0, total protein is 4.0. IMPRESSION: 1. ELEVATED TROPONIN I AND ISCHEMIC EKG CHANGES, MOST LIKELY SECONDARY TO HYPOTENSION DUE TO SEPTIC SHOCK AND HYPOXEMIA AND SEPSIS AND MOST LIKELY TO SUPPLY DEMAND MISMATCH, BUT WITH THE EKG CHANGES AND THE PATIENT NOT BEING ABLE TO GIVE A HISTORY AND WITH TROPONIN I ELEVATION, CANNOT ENTIRELY EXCLUDE A NON-ST ELEVATION [place]. We will have to get records as to whether the patient had stress test before her left BKA in [facility] in February. 2. ABNORMAL EKG, MUCH IMPROVED. 3. ACUTE HYPOXIC RESPIRATORY FAILURE. Better, but still requires ventilatory support and oxygen. 4. BILATERAL PNEUMONIA WITH SMALL BILATERAL PLEURAL EFFUSIONS. Still present and still patient needing ventilatory support. 5. RIGHT-SIDED ABDOMINAL PAIN. Patient seen by surgeon. The patient had a workup which showed acalculous acute cholecystitis. The patient had hepatobiliary scan that shows the liver normal visualization without any areas of protopenia. Temporal visualization normal of the intrahepatic and bile ducts. No dilatation. Common bile duct normal without dilatation or delayed visualization. Gallbladder normal visualization. Activity identified in the *------* on the cine images, suggesting against common bile duct obstruction. RECOMMENDATIONS: The plan is to continue the patient on ventilator support and continue antibiotics and respiratory treatments. Note that the patient is off pressors, but need to watch the patient's blood pressure carefully. It is up to the surgeon as how to treat the gallbladder since the HIDA scan shows normal visualization of the gallbladder with the impression that there is no cystic or common duct obstruction. do a cholecystostomy tube placement to *------* when the patient is in more stable condition. Note that 35 minutes of care done to this patient, with more than 50% of the time spent in direct patient care. Still family not available to discuss with them. Will follow with you. Discussed with the other caregiving providers. Her medications have been reviewed. ADDENDUM: Later an echo report came which showed that the patient has normal left ventricular ejection fraction. We are still awaiting further records from [facility]. Medications were reviewed and coordination of care and management of the patient was discussed with the other caregiving providers on the case. Discussion with the nurse taking care of the patient. Will follow with you. Thanking you. DICTATING PHYSICIAN: FERNANDO QUEVEDO M.D. [id number] ALIZE#: [id number] ID: [id number] JOB#: [id number] ACCT: [id number] cc: >
[2016-06-02] MEDS ORDERED: FUROSEMIDE INJ/PF 40 MG/4 ML SDV IV ONE (01:00)
[2016-06-02] MEDS: PIPERACILLIN SODIUM/TAZOBACTAM 4.5 GM in NORMAL SALINE 100 ML IV SCH (02:39)
[2016-06-02] MEDS: METRONIDAZOLE 500 MG/NS RTU 100 ML IV SCH ×4 (02:39→22:21)
[2016-06-02] MEDS: PROPOFOL 100 ML IV PRN ×4 (02:58→22:20)
[2016-06-02] MEDS: NORMAL SALINE 1000 ML 1,000 ML IV PRN (02:59)
[2016-06-02] MEDS: ALBUTEROL SULFATE 0.083% NEB 2.5 MG/3 ML AMPUL NEB PRN (04:02)
[2016-06-02 05:49] LABS: ARTERIAL BLOOD BASE EXCESS -8.4 mmol/L; ARTERIAL BLOOD O2 SATURATION 95.5 % (94-98)
[2016-06-02 05:54] LABS: RED CELL DISTRIBUTION WIDTH 19.6 % (11.5-14.0); WHITE BLOOD COUNT 19.1 10^3/uL (4.0-10.5)
[2016-06-02 06:02] LABS: ALANINE AMINOTRANSFERASE 606 U/L (9-52); ALBUMIN 2.3 g/dL (3.5-5.0); ALKALINE PHOSPHATASE 111 U/L (38-126); ANION GAP 15 (5-19); ASPARTATE AMINO TRANSFERASE 66 U/L (14-36); BILIRUBIN,DIRECT 0.6 mg/dL (0.0-0.4); BILIRUBIN,TOTAL 0.6 mg/dL (0.2-1.3); BLOOD UREA NITROGEN 28 mg/dL (7-20); CALCIUM 8.5 mg/dL (8.4-10.2); CARBON DIOXIDE 16 mmol/L (22-30); CHLORIDE 121 mmol/L (98-107); CREATININE RESULT 1.68 mg/dL (0.52-1.25); GLUCOSE 127 mg/dL (75-110); POTASSIUM 3.2 mmol/L (3.6-5.0); SODIUM 151.7 mmol/L (137-145); TOTAL PROTEIN 4.7 g/dL (6.3-8.2)
[2016-06-02 06:05] LABS: HEMATOCRIT 30.8 % (36.0-47.0); HGB HCT DIFFERENCE -0.8; MEAN CORPUSCULAR HEMOGLOBIN 27.8 pg (27.0-33.4); MEAN CORPUSCULAR HGB CONC 32.6 g/dL (32.0-36.0); MEAN CORPUSCULAR VOLUME 85 fl (80-97); RED BLOOD COUNT 3.61 10^6/uL (3.72-5.28)
[2016-06-02 06:26] LABS: BAND NEUTROPHILS % (MANUAL) 2 % (3-5); BASOPHILS % (MANUAL) 0 % (0-2); EOSINOPHILS % (MANUAL) 0 % (0-6); LYMPHOCYTES % (MANUAL) 7 % (13-45); NUCLEATED RED BLOOD CELLS 1 /100 WBC (0); TOTAL CELLS COUNTED 100
[2016-06-02 06:30] LABS: ANISOCYTOSIS 2+; BURR CELLS SLIGHT; HYPOCHROMASIA SLIGHT; OVALOCYTES SLIGHT; POIKILOCYTOSIS 1+; POLYCHROMASIA SLIGHT; TOXIC GRANULATION 1+
[2016-06-02] MEDS ORDERED: POTASSI CL 20 MEQ/D5-1/2NS 1L 1,000 ML IV PRN (07:28)
[2016-06-02] MEDS: IPRATROPIUM/ALBUTEROL 0.5-2.5 MG/3 ML AMPUL NEB SCH ×3 (08:26→20:24)
[2016-06-02] MEDS ORDERED: POTASSIUM CHLORIDE 20 MEQ/15 ML UDCUP PO ONE (08:30)
[2016-06-02] MEDS ORDERED: PIPERACILLIN SODIUM/TAZOBACTAM 3.375 GM in NORMAL SALINE 100 ML IV SCH (10:00)
[2016-06-02] MEDS: ALBUMIN HUMAN 50 ML IV SCH ×2 (10:39→22:21)
[2016-06-02] MEDS: PIPERACILLIN SODIUM/TAZOBACTAM 3.375 GM in NORMAL SALINE 100 ML IV SCH ×2 (10:41→17:00)
[2016-06-02] MEDS: FONDAPARINUX SODIUM INJ 7.5 MG/0.6 ML DISP.SYRIN SUBCUT SCH (10:49)
--- NOTE | 2016-06-02 10:57 | PDOC PROGRESS REPORT ---
Subjective Progress Note for:: 06/02/16 Subjective:: intubated and lethargic Physical Exam Vital Signs: Temp Pulse Resp BP Pulse Ox 99.3 F 73 24 H 125/87 H 95 06/02/16 05:17 06/02/16 04:02 06/02/16 06:00 06/02/16 05:43 06/02/16 06:00 Intake & Output 06/01/16 06/02/16 06/03/16 06:59 06:59 06:59 Intake Total 5887 3241 Output Total 3550 3360 Balance 2337 -1509 Weight 78 kg 75.1 kg General appearance: PRESENT: no acute distress, disheveled, obese Head exam: PRESENT: atraumatic, normocephalic Eye exam: PRESENT: conjunctiva pale Mouth exam: PRESENT: moist, neck supple, other - ET tube in place Neck exam: ABSENT: carotid bruit, JVD, lymphadenopathy, thyromegaly Respiratory exam: PRESENT: decreased breath sounds, prolonged expiratory phas, rales, rhonchi, symmetrical, unlabored Cardiovascular exam: PRESENT: RRR, +S1, +S2 Pulses: PRESENT: normal radial pulses GI/Abdominal exam: PRESENT: diminished bowel sounds - tenderness RUQ, tenderness , other Rectal exam: PRESENT: deferred Gentrourinary exam: PRESENT: indwelling catheter Skin exam: PRESENT: dry, warm Results Laboratory Results: 06/02/16 05:30 06/02/16 05:30 06/01/16 06/01/16 06/01/16 12:50 17:45 17:45 WBC RBC Hgb Hct MCV MCH MCHC RDW Plt Count Seg Neutrophils % Lymphocytes % Monocytes % Eosinophils % Basophils % Absolute Neutrophils Absolute Lymphocytes Absolute Monocytes Absolute Eosinophils Absolute Basophils Carbonic Acid HCO3/H2CO3 Ratio ABG pH ABG pCO2 ABG pO2 ABG HCO3 ABG O2 Saturation ABG Base Excess FiO2 Sodium 148.2 H Potassium 3.3 L Chloride 120 H Carbon Dioxide 15 L Anion Gap 13 BUN 24 H Creatinine 1.58 H Est GFR ( Amer) 41 L Est GFR (Non-Af Amer) 34 L Glucose 115 H Lactic Acid 2.3 H 1.6 Calcium 8.2 L Magnesium Total Bilirubin AST ALT Alkaline Phosphatase Total Protein Albumin 06/01/16 06/02/16 06/02/16 19:50 05:30 05:30 WBC 19.1 H RBC 3.61 L Hgb 10.0 L Hct 30.8 L MCV 85 MCH 27.8 MCHC 32.6 RDW 19.6 H Plt Count 216 Seg Neutrophils % Not Reportable Lymphocytes % Not Reportable Monocytes % Not Reportable Eosinophils % Not Reportable Basophils % Not Reportable Absolute Neutrophils Not Reportable Absolute Lymphocytes Not Reportable Absolute Monocytes Not Reportable Absolute Eosinophils Not Reportable Absolute Basophils Not Reportable Carbonic Acid 0.64 L 0.68 L HCO3/H2CO3 Ratio 21:1 21:1 ABG pH 7.43 7.43 ABG pCO2 21.2 L 22.6 L ABG pO2 71.0 L 73.8 L ABG HCO3 13.7 L 14.5 L ABG O2 Saturation 95.1 95.5 ABG Base Excess -9.1 -8.4 FiO2 28% 40% Sodium Potassium Chloride Carbon Dioxide Anion Gap BUN Creatinine Est GFR ( Amer) Est GFR (Non-Af Amer) Glucose Lactic Acid Calcium Magnesium Total Bilirubin AST ALT Alkaline Phosphatase Total Protein Albumin 06/02/16 05:30 WBC RBC Hgb Hct MCV MCH MCHC RDW Plt Count Seg Neutrophils % Lymphocytes % Monocytes % Eosinophils % Basophils % Absolute Neutrophils Absolute Lymphocytes Absolute Monocytes Absolute Eosinophils Absolute Basophils Carbonic Acid HCO3/H2CO3 Ratio ABG pH ABG pCO2 ABG pO2 ABG HCO3 ABG O2 Saturation ABG Base Excess FiO2 Sodium 151.7 H Potassium 3.2 L Chloride 121 H Carbon Dioxide 16 L Anion Gap 15 BUN 28 H Creatinine 1.68 H Est GFR ( Amer) 38 L Est GFR (Non-Af Amer) 31 L Glucose 127 H Lactic Acid Calcium 8.5 Magnesium 2.0 Total Bilirubin 0.6 AST 66 H ALT 606 H Alkaline Phosphatase 111 Total Protein 4.7 L Albumin 2.3 L 05/30/16 05/30/16 05/31/16 04:00 04:00 05:45 Creatine Kinase 110 CK-MB (CK-2) 3.10 Troponin I 0.270 0.136 Impressions: Abdomen Ultrasound 05/30/16 00:00 IMPRESSION: No gallstones are identified. There is thickening of the gallbladder ko and there is pericholecystic fluid. This was present on the previous CT scan. The possibility of an acalculous cholecystitis should be considered. Other findings as noted above Abdomen/Pelvis CT 05/30/16 01:00 IMPRESSION: There is relative increased density within the gallbladder lumen which could represent biliary sludge. Pericholecystic fluid is identified in the possibility of cholecystitis should be considered. Abdominal ultrasound may be of value for confirmation if clinically warranted. Bibasilar densities representing small bilateral pleural effusions with associated airspace consolidation which could represent atelectatic changes or basilar infiltrates. Other findings as noted above KUB X-Ray 05/30/16 11:41 IMPRESSION: NO RADIOGRAPHIC EVIDENCE FOR ACUTE ABDOMINAL DISEASE. Hepatobiliary Scan Nuclear Medicine 05/31/16 00:00 IMPRESSION: NO CYSTIC OR COMMON DUCT OBSTRUCTION. Chest X-Ray 06/02/16 06:00 IMPRESSION: Slight improvement. No pneumothorax. Assessment & Plan - Diagnosis (1) Abnormal CT scan, gallbladder Is this a current diagnosis for this admission?: YesPlan: less tender on exam, LFT declining (2) Acute respiratory failure with hypoxia Is this a current diagnosis for this admission?: YesPlan: minimal,fio2;min vol;rr persistent metabolic acidosis (3) LLL pneumonia Qualifiers: Pneumonia type: due to unspecified organism Qualified Code(s): J18.1 - Lobar pneumonia, unspecified organism Is this a current diagnosis for this admission?: Yes (4) Septic shock Is this a current diagnosis for this admission?: No - Time Critical Time spent with patient: 35 or more minutes
[2016-06-02 15:32] LABS: HEMATOCRIT 30.9 % (36.0-47.0); HEMOGLOBIN 10.1 g/dL (12.0-15.5); HGB HCT DIFFERENCE -0.6; MEAN CORPUSCULAR HEMOGLOBIN 27.9 pg (27.0-33.4); MEAN CORPUSCULAR HGB CONC 32.5 g/dL (32.0-36.0); MEAN CORPUSCULAR VOLUME 86 fl (80-97); RED CELL DISTRIBUTION WIDTH 19.3 % (11.5-14.0); WHITE BLOOD COUNT 19.8 10^3/uL (4.0-10.5)
[2016-06-02 15:49] LABS: ANION GAP 13 (5-19); BLOOD UREA NITROGEN 30 mg/dL (7-20); CALCIUM 8.7 mg/dL (8.4-10.2); CARBON DIOXIDE 18 mmol/L (22-30); CHLORIDE 121 mmol/L (98-107); CREATININE RESULT 1.69 mg/dL (0.52-1.25); GLUCOSE 133 mg/dL (75-110); POTASSIUM 3.6 mmol/L (3.6-5.0); SODIUM 151.7 mmol/L (137-145)
[2016-06-02 15:56] LABS: BAND NEUTROPHILS % (MANUAL) 1 % (3-5); BASOPHILS % (MANUAL) 0 % (0-2); EOSINOPHILS % (MANUAL) 1 % (0-6); LYMPHOCYTES % (MANUAL) 5 % (13-45); TOTAL CELLS COUNTED 100
[2016-06-02 15:58] LABS: TOXIC GRANULATION 2+
[2016-06-02 16:00] LABS: ANISOCYTOSIS 2+; OVALOCYTES SLIGHT; SCHISTOCYTES 1+
[2016-06-02 16:01] LABS: PLATELET CLUMPS N; ROULEAUX 1+
[2016-06-02 16:02] LABS: HYPOCHROMASIA SLIGHT; POLYCHROMASIA SLIGHT
[2016-06-02] MEDS ORDERED: DEXTROSE 5%-WATER 1000 ML 1,000 ML with POTASSIUM CHLORIDE 20 MEQ IV PRN ×2 (16:20)
[2016-06-02] MEDS: DEXTROSE 5%-WATER 1000 ML 1,000 ML with POTASSIUM CHLORIDE 20 MEQ IV PRN ×2 (17:12)
--- NOTE | 2016-06-02 17:20 | PDOC PROGRESS REPORT ---
Subjective Progress Note for:: 06/02/16 Subjective:: Patient is still intubated mechanically ventilated ; she appears extremely edematous She did very well at trial of weaning from the ventilator Sepsis is resolving Lactic acid is normal she is off pressors Leukocytosis is persistent as well as electrolyte imbalance and metabolic acidosis She is in acute renal failure with a creatinine of 1.56 Physical Exam Vital Signs: Temp Pulse Resp BP Pulse Ox 99.0 F 84 17 134/100 H 96 06/02/16 10:00 06/02/16 14:08 06/02/16 14:08 06/02/16 13:43 06/02/16 14:08 Intake & Output 06/01/16 06/02/16 06/03/16 00:59 00:59 00:59 Intake Total 6595 5195 864 Output Total 3725 3400 3150 Balance 2870 1795 -2286 Weight 74.6 kg 78 kg 75.1 kg General appearance: PRESENT: no acute distress, obese Head exam: PRESENT: atraumatic, normocephalic Eye exam: PRESENT: conjunctiva pale. ABSENT: scleral icterus Neck exam: ABSENT: carotid bruit, JVD, lymphadenopathy, thyromegaly Respiratory exam: PRESENT: decreased breath sounds. ABSENT: rales, rhonchi, wheezes Cardiovascular exam: PRESENT: RRR. ABSENT: diastolic murmur, rubs, systolic murmur Pulses: PRESENT: normal dorsalis pedis pul GI/Abdominal exam: PRESENT: distended, hypoactive bowel sounds. ABSENT: ascites Extremities exam: PRESENT: +2 edema Neurological exam: PRESENT: other - Sedated Neuro exam cannot be performed Results Laboratory Results: 06/02/16 14:45 06/02/16 14:45 06/01/16 06/01/16 06/01/16 17:45 17:45 19:50 WBC RBC Hgb Hct MCV MCH MCHC RDW Plt Count Seg Neutrophils % Lymphocytes % Monocytes % Eosinophils % Basophils % Absolute Neutrophils Absolute Lymphocytes Absolute Monocytes Absolute Eosinophils Absolute Basophils Carbonic Acid 0.64 L HCO3/H2CO3 Ratio 21:1 ABG pH 7.43 ABG pCO2 21.2 L ABG pO2 71.0 L ABG HCO3 13.7 L ABG O2 Saturation 95.1 ABG Base Excess -9.1 FiO2 28% Sodium 148.2 H Potassium 3.3 L Chloride 120 H Carbon Dioxide 15 L Anion Gap 13 BUN 24 H Creatinine 1.58 H Est GFR ( Amer) 41 L Est GFR (Non-Af Amer) 34 L Glucose 115 H Lactic Acid 1.6 Calcium 8.2 L Magnesium Total Bilirubin AST ALT Alkaline Phosphatase Total Protein Albumin 06/02/16 06/02/16 06/02/16 05:30 05:30 05:30 WBC 19.1 H RBC 3.61 L Hgb 10.0 L Hct 30.8 L MCV 85 MCH 27.8 MCHC 32.6 RDW 19.6 H Plt Count 216 Seg Neutrophils % Not Reportable Lymphocytes % Not Reportable Monocytes % Not Reportable Eosinophils % Not Reportable Basophils % Not Reportable Absolute Neutrophils Not Reportable Absolute Lymphocytes Not Reportable Absolute Monocytes Not Reportable Absolute Eosinophils Not Reportable Absolute Basophils Not Reportable Carbonic Acid 0.68 L HCO3/H2CO3 Ratio 21:1 ABG pH 7.43 ABG pCO2 22.6 L ABG pO2 73.8 L ABG HCO3 14.5 L ABG O2 Saturation 95.5 ABG Base Excess -8.4 FiO2 40% Sodium 151.7 H Potassium 3.2 L Chloride 121 H Carbon Dioxide 16 L Anion Gap 15 BUN 28 H Creatinine 1.68 H Est GFR ( Amer) 38 L Est GFR (Non-Af Amer) 31 L Glucose 127 H Lactic Acid Calcium 8.5 Magnesium 2.0 Total Bilirubin 0.6 AST 66 H ALT 606 H Alkaline Phosphatase 111 Total Protein 4.7 L Albumin 2.3 L 06/02/16 06/02/16 14:45 14:45 WBC 19.8 H RBC 3.60 L Hgb 10.1 L Hct 30.9 L MCV 86 MCH 27.9 MCHC 32.5 RDW 19.3 H Plt Count 193 Seg Neutrophils % Not Reportable Lymphocytes % Not Reportable Monocytes % Not Reportable Eosinophils % Not Reportable Basophils % Not Reportable Absolute Neutrophils Not Reportable Absolute Lymphocytes Not Reportable Absolute Monocytes Not Reportable Absolute Eosinophils Not Reportable Absolute Basophils Not Reportable Carbonic Acid HCO3/H2CO3 Ratio ABG pH ABG pCO2 ABG pO2 ABG HCO3 ABG O2 Saturation ABG Base Excess FiO2 Sodium 151.7 H Potassium 3.6 Chloride 121 H Carbon Dioxide 18 L Anion Gap 13 BUN 30 H Creatinine 1.69 H Est GFR ( Amer) 38 L Est GFR (Non-Af Amer) 31 L Glucose 133 H Lactic Acid Calcium 8.7 Magnesium Total Bilirubin AST ALT Alkaline Phosphatase Total Protein Albumin 05/30/16 05/30/16 05/31/16 04:00 04:00 05:45 Creatine Kinase 110 CK-MB (CK-2) 3.10 Troponin I 0.270 0.136 Impressions: Abdomen Ultrasound 05/30/16 00:00 IMPRESSION: No gallstones are identified. There is thickening of the gallbladder ko and there is pericholecystic fluid. This was present on the previous CT scan. The possibility of an acalculous cholecystitis should be considered. Other findings as noted above Abdomen/Pelvis CT 05/30/16 01:00 IMPRESSION: There is relative increased density within the gallbladder lumen which could represent biliary sludge. Pericholecystic fluid is identified in the possibility of cholecystitis should be considered. Abdominal ultrasound may be of value for confirmation if clinically warranted. Bibasilar densities representing small bilateral pleural effusions with associated airspace consolidation which could represent atelectatic changes or basilar infiltrates. Other findings as noted above Hepatobiliary Scan Nuclear Medicine 05/31/16 00:00 IMPRESSION: NO CYSTIC OR COMMON DUCT OBSTRUCTION. Chest X-Ray 06/02/16 06:00 IMPRESSION: Slight improvement. No pneumothorax. KUB X-Ray 06/02/16 08:01 IMPRESSION: Allowing for paucity of bowel gas, negative study. Limited as above. Assessment & Plan - Diagnosis (1) Acute acalculous cholecystitis Is this a current diagnosis for this admission?: YesPlan: Was ruled out by hyda scan Continue IV antibiotics (2) Acute respiratory failure Qualifiers: Respiratory failure complication: unspecified whether with hypoxia or hypercapnia Qualified Code(s): J96.00 - Acute respiratory failure, unspecified whether with hypoxia or hypercapnia Is this a current diagnosis for this admission?: Yes (3) Hypokalemia Is this a current diagnosis for this admission?: Yes (4) LLL pneumonia Qualifiers: Pneumonia type: due to unspecified organism Qualified Code(s): J18.1 - Lobar pneumonia, unspecified organism Is this a current diagnosis for this admission?: Yes (5) Non-ST elevation myocardial infarction (NSTEMI), type 2 Is this a current diagnosis for this admission?: Yes (6) Septic shock Is this a current diagnosis for this admission?: NoPlan: Resolving (7) Hypernatremia Is this a current diagnosis for this admission?: YesPlan: Change the IV fluids Free water per NG tube (8) Hypoalbuminemia Is this a current diagnosis for this admission?: YesPlan: We will give patient albumin twice a day Initiate nutrition (9) Acute renal failure Qualifiers: Acute renal failure type: unspecified Qualified Code(s): N17.9 - Acute kidney failure, unspecified Is this a current diagnosis for this admission?: YesPlan: Patient certainly looks fluid overloaded and is third spacing We will hold Lasix, continue to hydrate Follow-up BMP in a.m. - Time Time Spent with patient: 25-34 minutes
--- NOTE | 2016-06-03 00:34 | PROGRESS NOTE E ---
Progress Note NAME: RAI VOGT : 1955 AGE: 60Y DATE: 06/02/2016 ROOM: 601 SUBJECTIVE: NOTE: I was with the patient, seeing the patient from 8:00 a.m. to 8:40 a.m. on 06/02/2016. We have reviewed his medications and also discussed with other attending physicians on the case. The patient is intubated and sedated. She is awake and gestures appropriately. She seems to be erythematous all over. Her lactic acid has come back to normal and she has some renal failure and metabolic acidosis; hence, even though she did well weaning off the ventilator test, we decided to postpone the extubation. The patient gestures there is no chest pain, there are no arrhythmias on the monitor. There is generalized anasarca present. Generalized edema may be related to her renal failure and also low albumin state. Note that the patient's echocardiogram done in February showed a normal LV ejection fraction and the chest x-ray does not show any evidence of congestive heart failure. OBJECTIVE: GENERAL: On examination, the patient is less sedated but continues to be intubated. She does not appear to fight the ventilator. She is well built and seems to be much better compared to admission date. VITAL SIGNS: She is afebrile with a temperature of 98.8 degrees Fahrenheit, pulse is 65 beats per minute, blood pressure 131/92, respirations are 24 per minute, and 02 sats are 98%. This is on an FiO2 of 35%. HEENT: Head: Atraumatic, normocephalic. Eyes: Pupils are equal, round, regular, reactive to light and accommodation. Note there is no tongue swelling. There is an NG tube through the throat. NECK: Supple. There is no JVD. Carotids are equal. There is no bruit. There is no goiter. There is no lymphadenopathy. Trachea is central. LUNGS: Show still small area of absent breath sounds in both bases. There are dry crackles of pneumonia, right greater than left. There are no rales of CHF. CARDIOVASCULAR: S1 and S2 are heard. There is no S3 gallop. There is no S4 gallop. There is a systolic murmur in the left sternal border and the apex. There is no rub. ABDOMEN: Soft, nontender. There is no hepatosplenomegaly. Bowel sounds are well heard. There is no rebound, guarding or rigidity. EXTREMITIES: Femorals are diminished. There are no femoral bruits. Leg pulses are diminished. There is no edema. There are no femoral bruits. 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 There is no cyanosis or clubbing. NEUROLOGICAL: The patient is awake and alert but intubated and does not talk but follows commands. She is able to move her extremities to an extent. PSYCHIATRIC: The patient does not appear to be agitated. DIAGNOSTIC STUDIES: The patient's 24-hour intake is 3241 mL; output is 4750 mL. The chest x-ray shows no evidence of congestive heart failure. The heart size is normal. There is opacities and air space disease in both the bases. The left air space disease seems to be improving with better aeration. The patient's sodium is 151.7, potassium is 3.6, chloride 121, CO2 18, the patient's BUN is 30, creatinine is 1.69, GFR is reduced at 31 mL, which is stage 3 kidney disease. This seems to be acute. The patient's glucose is 133. The patient's liver function tests show an AST of 66 and ALT 606. As mentioned earlier, the patient's albumin is 2.3 and total protein is 4.7. The patient's calcium has come up to 8.7. The patient's magnesium is 2.0. ABG show on 40% a pH of 7.43, PCO2 is 22.6, PO2 is 73.8, and 02 sats are 95.5% on FiO2 of 40%. IMPRESSION: 1. ELEVATED TROPONIN I AND ISCHEMIC EKG CHANGES SECONDARY TO HYPOTENSION DUE TO SEPTIC SHOCK AND HYPOXEMIA AND SEPSIS. Is most likely type-2 CT secondary to supply demand mismatch. No definitive evidence of non-ST elevation CT but once the patient is extubated, would ask the patient if she has had any chest pains or any stress tests. Hence, entirely cannot exclude a non-ST elevation CT. 2. ABNORMAL EKG, MUCH IMPROVED. 3. ACUTE HYPOXIC RESPIRATORY FAILURE. Better. The patient most likely is to be extubated. 4. BILATERAL PNEUMONIA WITH SMALL BILATERAL PLEURAL EFFUSIONS. The plan is to continue the patient on antibiotics. 5. THE DIAGNOSIS OF ACUTE ACALCULOUS CHOLECYSTITIS MAY NOT BE ACCURATE; IN FACT, THE HIDA SCAN IS AGAINST THIS DIAGNOSIS; HENCE, THE SURGEONS HAVE SIGNED OFF AND THE PATIENT WOULD NOT REQUIRE SURGERY THIS ADMISSION. 6. ANASARCA MOST LIKELY SECONDARY TO LOW ALBUMIN AND THE PATIENT'S RENAL FAILURE. Later on when the patient is extubated, will get an echocardiogram to be sure the LV ejection fraction is okay and that the patient does not have any significant pulmonary hypertension. The plan is to get an echo as mentioned earlier and also would recommend that the patient be given enteral nutrition to get her albumin up. If there is evidence of pulmonary hypertension, then would recommend starting the patient on some Levophed, which would be helpful. 7. HYPERNATREMIA. 8. HYPERCHLOREMIA. 9. HYPERCOAGULABLE STATE. 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 In view of the hypercoagulable state, the patient is on Eliquis. Would recommend later as an outpatient, the patient being seen by the oncologist/roll scale worker, Dr. Daley or Dr. Tamara Carlton, to see if they could do a workup of the hypercoagulable state. Later would recommend a Cardiolite stress test as an inpatient or as an outpatient. Once the patient is extubated, we might get better history from her. Still her daughter has not shown up for us to discuss with them. RECOMMENDATIONS: Would recommend giving the patient free water and also continue the patient's current IV fluids at a much lower rate. Note that the patient is off pressors. Note, 40 minutes spent on this patient, and this patient has multiple medical problems and has highly complex decision making process. The good news is that the patient does not require surgery. It is not mentioned with the HIDA scan if the patient has cholecystitis, which I think would make a difference in the diagnosis, but the surgeons seem confident that the patient is not having an acute gallbladder problem and that no surgery is required at this time. Also septic shock has resolved and the patient's respiratory failure is much improved, and the patient did do well on the ventilator weaning/extubation test. All of the above discussed with the hospitalist and other caregivers on the case. Also, in view of the patient's renal failure, the patient's gentamicin has been discontinued. Also, continue *------* for her hypercoagulable state. Thanking you. DICTATING PHYSICIAN: FERNANDO QUEVEDO M.D. [id number] PHY#: [id number] ID: [id number] JOB#: [id number] ACCT: [id number] cc: >
[2016-06-03] MEDS: PIPERACILLIN SODIUM/TAZOBACTAM 3.375 GM in NORMAL SALINE 100 ML IV SCH ×3 (02:22→17:37)
[2016-06-03] MEDS: MORPHINE SULFATE 10 MG/ML INJ IV SCH ×6 (02:23→21:35)
[2016-06-03] MEDS: PROPOFOL 100 ML IV PRN ×2 (02:23→07:57)
[2016-06-03] MEDS: METRONIDAZOLE 500 MG/NS RTU 100 ML IV SCH ×4 (03:54→20:29)
[2016-06-03 05:42] LABS: ARTERIAL BLOOD BASE EXCESS -7.2 mmol/L; ARTERIAL BLOOD O2 SATURATION 97.2 % (94-98)
[2016-06-03 05:46] LABS: ABSOLUTE EOSINOPHILS # (AUTO) 0.1 10^3/uL (0.0-0.6); ABSOLUTE LYMPHOCYTES (AUTO) 0.9 10^3/uL (0.5-4.7); ABSOLUTE MONOCYTES (AUTO) 0.4 10^3/uL (0.1-1.4); ABSOLUTE NEUT (AUTO) 14.7 10^3/uL (1.7-8.2); BASOPHILS % (AUTO) 0.2 % (0-2); EOSINOPHILS % (AUTO) 0.4 % (0-6); HEMATOCRIT 26.8 % (36.0-47.0); HEMOGLOBIN 8.9 g/dL (12.0-15.5); HGB HCT DIFFERENCE -0.1; LYMPHOCYTES % (AUTO) 5.8 % (13-45); MEAN CORPUSCULAR HEMOGLOBIN 28.5 pg (27.0-33.4); MEAN CORPUSCULAR HGB CONC 33.1 g/dL (32.0-36.0); MEAN CORPUSCULAR VOLUME 86 fl (80-97); MONOCYTES % (AUTO) 2.7 % (3-13); RED BLOOD COUNT 3.11 10^6/uL (3.72-5.28); RED CELL DISTRIBUTION WIDTH 19.3 % (11.5-14.0); SEGMENTED NEUTROPHILS % (AUTO) 90.9 % (42-78); WHITE BLOOD COUNT 16.1 10^3/uL (4.0-10.5)
[2016-06-03 06:08] LABS: ANION GAP 12 (5-19); BLOOD UREA NITROGEN 27 mg/dL (7-20); CALCIUM 8.5 mg/dL (8.4-10.2); CARBON DIOXIDE 17 mmol/L (22-30); CHLORIDE 120 mmol/L (98-107); CREATININE RESULT 1.54 mg/dL (0.52-1.25); GLUCOSE 124 mg/dL (75-110); POTASSIUM 3.4 mmol/L (3.6-5.0); SODIUM 149.3 mmol/L (137-145)
[2016-06-03 06:09] LABS: ALANINE AMINOTRANSFERASE 374 U/L (9-52); ALBUMIN 2.3 g/dL (3.5-5.0); ALKALINE PHOSPHATASE 96 U/L (38-126); ASPARTATE AMINO TRANSFERASE 36 U/L (14-36); BILIRUBIN,DIRECT 0.7 mg/dL (0.0-0.4); BILIRUBIN,TOTAL 0.7 mg/dL (0.2-1.3); TOTAL PROTEIN 4.5 g/dL (6.3-8.2)
[2016-06-03] MEDS: IPRATROPIUM/ALBUTEROL 0.5-2.5 MG/3 ML AMPUL NEB SCH ×3 (08:31→19:52)
[2016-06-03] MEDS ORDERED: FONDAPARINUX SODIUM INJ 7.5 MG/0.6 ML DISP.SYRIN SUBCUT SCH (08:34)
--- NOTE | 2016-06-03 08:34 | PDOC PROGRESS REPORT ---
Subjective Progress Note for:: 06/03/16 Subjective:: Patient's condition has improved today She is being weaned off sedation and today is a just on C Pap support She is breathing easily, pulse oximetry is adequate Extubation is likely for today Sepsis has resolved she's off pressors Electrolyte imbalance is corrected, with mild hypernatremia and hypokalemia persistent Physical Exam Vital Signs: Temp Pulse Resp BP Pulse Ox 99.0 F 83 24 H 116/88 H 96 06/02/16 10:00 06/02/16 20:24 06/03/16 06:13 06/03/16 06:13 06/03/16 06:13 Intake & Output 06/02/16 06/03/16 06/04/16 00:59 00:59 00:59 Intake Total 5195 1981 1881 Output Total 3400 4600 450 Balance 1795 -2619 1431 Weight 78 kg 75.1 kg 76.1 kg General appearance: PRESENT: no acute distress, other - Pale edematous Head exam: PRESENT: atraumatic, normocephalic Eye exam: PRESENT: conjunctiva pale, PERRLA. ABSENT: scleral icterus Neck exam: ABSENT: carotid bruit, JVD, lymphadenopathy, thyromegaly Respiratory exam: PRESENT: decreased breath sounds, unlabored. ABSENT: accessory muscle use, tachypnea Cardiovascular exam: PRESENT: RRR. ABSENT: diastolic murmur, rubs, systolic murmur GI/Abdominal exam: PRESENT: distended. ABSENT: guarding, rebound, tenderness Neurological exam: PRESENT: awake, CN II-XII grossly intact Results Laboratory Results: 06/03/16 05:25 06/03/16 05:25 06/02/16 06/02/16 06/03/16 14:45 14:45 05:25 WBC 19.8 H RBC 3.60 L Hgb 10.1 L Hct 30.9 L MCV 86 MCH 27.9 MCHC 32.5 RDW 19.3 H Plt Count 193 Seg Neutrophils % Not Reportable Lymphocytes % Not Reportable Monocytes % Not Reportable Eosinophils % Not Reportable Basophils % Not Reportable Absolute Neutrophils Not Reportable Absolute Lymphocytes Not Reportable Absolute Monocytes Not Reportable Absolute Eosinophils Not Reportable Absolute Basophils Not Reportable Carbonic Acid HCO3/H2CO3 Ratio ABG pH ABG pCO2 ABG pO2 ABG HCO3 ABG O2 Saturation ABG Base Excess FiO2 Sodium 151.7 H 149.3 H Potassium 3.6 3.4 L Chloride 121 H 120 H Carbon Dioxide 18 L 17 L Anion Gap 13 12 BUN 30 H 27 H Creatinine 1.69 H 1.54 H Est GFR ( Amer) 38 L 42 L Est GFR (Non-Af Amer) 31 L 35 L Glucose 133 H 124 H Calcium 8.7 8.5 Magnesium 2.0 Total Bilirubin AST ALT Alkaline Phosphatase Total Protein Albumin 06/03/16 06/03/16 06/03/16 05:25 05:25 05:25 WBC 16.1 H RBC 3.11 L Hgb 8.9 L Hct 26.8 L MCV 86 MCH 28.5 MCHC 33.1 RDW 19.3 H Plt Count 169 Seg Neutrophils % 90.9 H Lymphocytes % 5.8 L Monocytes % 2.7 L Eosinophils % 0.4 Basophils % 0.2 Absolute Neutrophils 14.7 H Absolute Lymphocytes 0.9 Absolute Monocytes 0.4 Absolute Eosinophils 0.1 Absolute Basophils 0.0 Carbonic Acid 0.67 L HCO3/H2CO3 Ratio 22:1 ABG pH 7.46 H ABG pCO2 22.3 L ABG pO2 86.4 ABG HCO3 15.4 L ABG O2 Saturation 97.2 ABG Base Excess -7.2 FiO2 35% Sodium Potassium Chloride Carbon Dioxide Anion Gap BUN Creatinine Est GFR ( Amer) Est GFR (Non-Af Amer) Glucose Calcium Magnesium Total Bilirubin 0.7 AST 36 ALT 374 H Alkaline Phosphatase 96 Total Protein 4.5 L Albumin 2.3 L 05/30/16 05/30/16 05/31/16 04:00 04:00 05:45 Creatine Kinase 110 CK-MB (CK-2) 3.10 Troponin I 0.270 0.136 Impressions: Abdomen Ultrasound 05/30/16 00:00 IMPRESSION: No gallstones are identified. There is thickening of the gallbladder ko and there is pericholecystic fluid. This was present on the previous CT scan. The possibility of an acalculous cholecystitis should be considered. Other findings as noted above Abdomen/Pelvis CT 05/30/16 01:00 IMPRESSION: There is relative increased density within the gallbladder lumen which could represent biliary sludge. Pericholecystic fluid is identified in the possibility of cholecystitis should be considered. Abdominal ultrasound may be of value for confirmation if clinically warranted. Bibasilar densities representing small bilateral pleural effusions with associated airspace consolidation which could represent atelectatic changes or basilar infiltrates. Other findings as noted above Hepatobiliary Scan Nuclear Medicine 05/31/16 00:00 IMPRESSION: NO CYSTIC OR COMMON DUCT OBSTRUCTION. KUB X-Ray 06/02/16 08:01 IMPRESSION: Allowing for paucity of bowel gas, negative study. Limited as above. Chest X-Ray 06/03/16 06:00 IMPRESSION: NO CHANGE IN APPEARANCE OF THE CHEST. Assessment & Plan - Diagnosis (1) Acute acalculous cholecystitis Is this a current diagnosis for this admission?: YesPlan: LFTs are decreased Hyda scan was negative Patient was not a candidate for cholecystostomy tube We will continue antibiotics as clinically patient likely had cholecystitis There was no bacteremia (2) Acute respiratory failure Qualifiers: Respiratory failure complication: unspecified whether with hypoxia or hypercapnia Qualified Code(s): J96.00 - Acute respiratory failure, unspecified whether with hypoxia or hypercapnia Is this a current diagnosis for this admission?: Yes (3) Hypokalemia Is this a current diagnosis for this admission?: YesPlan: Replace 20 mEq K today (4) LLL pneumonia Qualifiers: Pneumonia type: due to unspecified organism Qualified Code(s): J18.1 - Lobar pneumonia, unspecified organism Is this a current diagnosis for this admission?: YesPlan: Continue antibiotics (5) Non-ST elevation myocardial infarction (NSTEMI), type 2 Is this a current diagnosis for this admission?: YesPlan: Likely type II Reevaluate medications Patient may be a candidate for stress testing prior to discharge when clinically stable (6) Septic shock Is this a current diagnosis for this admission?: YesPlan: Resolved (7) Hypernatremia Is this a current diagnosis for this admission?: YesPlan: Is improving Patient is on D5W infusion We will repeat labs at 2 PM and reevaluate patient's needs (8) Hypoalbuminemia Is this a current diagnosis for this admission?: YesPlan: Likely secondary to malnutrition Continue albumin infusions Hopefully patient can be fed tomorrow after extubation (9) Acute renal failure Qualifiers: Acute renal failure type: unspecified Qualified Code(s): N17.9 - Acute kidney failure, unspecified Is this a current diagnosis for this admission?: YesPlan: Is stable Creatinine at 1.5 Likely secondary to acute tubular necrosis We will just monitor renal function closely Patient does not need renal replacement at this time - Time Time Spent with patient: 25-34 minutes
[2016-06-03] MEDS: ALBUMIN HUMAN 50 ML IV SCH ×2 (08:58→20:30)
[2016-06-03] MEDS ORDERED: FUROSEMIDE INJ/PF 20 MG/2 ML SDV IV ONE (09:00)
[2016-06-03] MEDS ORDERED: POTASSI CL 20 MEQ/50 ML RIDER 20 MEQ/50 ML RTUPB IV ONE (09:30)
[2016-06-03] MEDS: HYDROCORTISONE SOD SUCCINATE INJ/PF 100 MG/2 ML SDV IV SCH ×2 (09:56→21:35)
[2016-06-03] MEDS: FAMOTIDINE INJ/PF 20 MG/2 ML SDV IV SCH ×2 (09:57→21:35)
[2016-06-03] MEDS ORDERED: FONDAPARINUX SODIUM INJ 2.5 MG/0.5 ML DISP.SYRIN SUBCUT SCH ×2 (10:00)
[2016-06-03] MEDS ORDERED: FONDAPARINUX SODIUM INJ 7.5 MG/0.6 ML DISP.SYRIN SUBCUT ONE (11:00)
[2016-06-03] MEDS ORDERED: FONDAPARINUX SODIUM INJ 5 MG/0.4 ML DISP.SYRIN SUBCUT ONE (11:15)
[2016-06-03] MEDS: DEXTROSE 5%-WATER 1000 ML 1,000 ML with POTASSIUM CHLORIDE 20 MEQ IV PRN ×2 (11:17)
--- NOTE | 2016-06-03 11:45 | PDOC PROGRESS REPORT ---
Subjective Progress Note for:: 06/03/16 Subjective:: intubated and lethargic but arousable Physical Exam Vital Signs: Temp Pulse Resp BP Pulse Ox 98.4 F 83 18 130/92 H 93 06/03/16 08:00 06/03/16 10:00 06/03/16 10:45 06/03/16 10:13 06/03/16 10:45 Intake & Output 06/02/16 06/03/16 06/04/16 06:59 06:59 06:59 Intake Total 3244 2998 Output Total 4593 3350 475 Balance -1509 -352 -475 Weight 75.1 kg 76.1 kg Results Laboratory Results: 06/03/16 05:25 06/03/16 05:25 06/02/16 06/02/16 06/03/16 14:45 14:45 05:25 WBC 19.8 H RBC 3.60 L Hgb 10.1 L Hct 30.9 L MCV 86 MCH 27.9 MCHC 32.5 RDW 19.3 H Plt Count 193 Seg Neutrophils % Not Reportable Lymphocytes % Not Reportable Monocytes % Not Reportable Eosinophils % Not Reportable Basophils % Not Reportable Absolute Neutrophils Not Reportable Absolute Lymphocytes Not Reportable Absolute Monocytes Not Reportable Absolute Eosinophils Not Reportable Absolute Basophils Not Reportable Carbonic Acid HCO3/H2CO3 Ratio ABG pH ABG pCO2 ABG pO2 ABG HCO3 ABG O2 Saturation ABG Base Excess FiO2 Sodium 151.7 H 149.3 H Potassium 3.6 3.4 L Chloride 121 H 120 H Carbon Dioxide 18 L 17 L Anion Gap 13 12 BUN 30 H 27 H Creatinine 1.69 H 1.54 H Est GFR ( Amer) 38 L 42 L Est GFR (Non-Af Amer) 31 L 35 L Glucose 133 H 124 H Calcium 8.7 8.5 Magnesium 2.0 Total Bilirubin AST ALT Alkaline Phosphatase Total Protein Albumin 06/03/16 06/03/16 06/03/16 05:25 05:25 05:25 WBC 16.1 H RBC 3.11 L Hgb 8.9 L Hct 26.8 L MCV 86 MCH 28.5 MCHC 33.1 RDW 19.3 H Plt Count 169 Seg Neutrophils % 90.9 H Lymphocytes % 5.8 L Monocytes % 2.7 L Eosinophils % 0.4 Basophils % 0.2 Absolute Neutrophils 14.7 H Absolute Lymphocytes 0.9 Absolute Monocytes 0.4 Absolute Eosinophils 0.1 Absolute Basophils 0.0 Carbonic Acid 0.67 L HCO3/H2CO3 Ratio 22:1 ABG pH 7.46 H ABG pCO2 22.3 L ABG pO2 86.4 ABG HCO3 15.4 L ABG O2 Saturation 97.2 ABG Base Excess -7.2 FiO2 35% Sodium Potassium Chloride Carbon Dioxide Anion Gap BUN Creatinine Est GFR ( Amer) Est GFR (Non-Af Amer) Glucose Calcium Magnesium Total Bilirubin 0.7 AST 36 ALT 374 H Alkaline Phosphatase 96 Total Protein 4.5 L Albumin 2.3 L 05/30/16 05/30/16 05/31/16 04:00 04:00 05:45 Creatine Kinase 110 CK-MB (CK-2) 3.10 Troponin I 0.270 0.136 Impressions: Abdomen Ultrasound 05/30/16 00:00 IMPRESSION: No gallstones are identified. There is thickening of the gallbladder ko and there is pericholecystic fluid. This was present on the previous CT scan. The possibility of an acalculous cholecystitis should be considered. Other findings as noted above Abdomen/Pelvis CT 05/30/16 01:00 IMPRESSION: There is relative increased density within the gallbladder lumen which could represent biliary sludge. Pericholecystic fluid is identified in the possibility of cholecystitis should be considered. Abdominal ultrasound may be of value for confirmation if clinically warranted. Bibasilar densities representing small bilateral pleural effusions with associated airspace consolidation which could represent atelectatic changes or basilar infiltrates. Other findings as noted above Hepatobiliary Scan Nuclear Medicine 05/31/16 00:00 IMPRESSION: NO CYSTIC OR COMMON DUCT OBSTRUCTION. KUB X-Ray 06/02/16 08:01 IMPRESSION: Allowing for paucity of bowel gas, negative study. Limited as above. Chest X-Ray 06/03/16 06:00 IMPRESSION: NO CHANGE IN APPEARANCE OF THE CHEST. Assessment & Plan - Diagnosis (1) Abnormal CT scan, gallbladder Is this a current diagnosis for this admission?: YesPlan: As per surgery (2) Acute respiratory failure with hypoxia Is this a current diagnosis for this admission?: YesPlan: Respiratory rate, FiO2, minute ventilation and airway pressures suggest a successful extubation continue diuresis and extubate (3) LLL pneumonia Qualifiers: Pneumonia type: due to unspecified organism Qualified Code(s): J18.1 - Lobar pneumonia, unspecified organism Is this a current diagnosis for this admission?: Yes (4) Septic shock Is this a current diagnosis for this admission?: No
[2016-06-03] MEDS: MORPHINE SULFATE 10 MG/ML INJ IV PRN (12:58)
[2016-06-03 15:13] LABS: ANION GAP 14 (5-19); BLOOD UREA NITROGEN 25 mg/dL (7-20); CARBON DIOXIDE 19 mmol/L (22-30); CHLORIDE 119 mmol/L (98-107); CREATININE RESULT 1.37 mg/dL (0.52-1.25); GLUCOSE 106 mg/dL (75-110); POTASSIUM 3.2 mmol/L (3.6-5.0); SODIUM 151.5 mmol/L (137-145)
[2016-06-04] MEDS: PIPERACILLIN SODIUM/TAZOBACTAM 3.375 GM in NORMAL SALINE 100 ML IV SCH ×3 (01:48→17:59)
[2016-06-04] MEDS: MORPHINE SULFATE 10 MG/ML INJ IV SCH ×6 (01:48→21:24)
[2016-06-04] MEDS: DEXTROSE 5%-WATER 1000 ML 1,000 ML with POTASSIUM CHLORIDE 20 MEQ IV PRN ×2 (01:48)
[2016-06-04] MEDS: METRONIDAZOLE 500 MG/NS RTU 100 ML IV SCH ×4 (02:57→20:29)
[2016-06-04 04:28] LABS: ARTERIAL BLOOD BASE EXCESS -3.1 mmol/L; ARTERIAL BLOOD O2 SATURATION 95.1 % (94-98)
[2016-06-04 04:34] LABS: ABSOLUTE EOSINOPHILS # (AUTO) 0.1 10^3/uL (0.0-0.6); ABSOLUTE LYMPHOCYTES (AUTO) 0.8 10^3/uL (0.5-4.7); ABSOLUTE MONOCYTES (AUTO) 0.4 10^3/uL (0.1-1.4); ABSOLUTE NEUT (AUTO) 14.1 10^3/uL (1.7-8.2); BASOPHILS % (AUTO) 0.2 % (0-2); EOSINOPHILS % (AUTO) 0.8 % (0-6); HEMATOCRIT 29.7 % (36.0-47.0); HEMOGLOBIN 9.6 g/dL (12.0-15.5); HGB HCT DIFFERENCE -0.9; LYMPHOCYTES % (AUTO) 5.4 % (13-45); MEAN CORPUSCULAR HGB CONC 32.1 g/dL (32.0-36.0); MEAN CORPUSCULAR VOLUME 87 fl (80-97); MONOCYTES % (AUTO) 2.5 % (3-13); RED BLOOD COUNT 3.41 10^6/uL (3.72-5.28); RED CELL DISTRIBUTION WIDTH 19.1 % (11.5-14.0); SEGMENTED NEUTROPHILS % (AUTO) 91.1 % (42-78); WHITE BLOOD COUNT 15.4 10^3/uL (4.0-10.5)
[2016-06-04 04:42] LABS: ANION GAP 12 (5-19); BLOOD UREA NITROGEN 23 mg/dL (7-20); CALCIUM 8.8 mg/dL (8.4-10.2); CARBON DIOXIDE 20 mmol/L (22-30); CHLORIDE 119 mmol/L (98-107); CREATININE RESULT 1.18 mg/dL (0.52-1.25); GLUCOSE 76 mg/dL (75-110); MAGNESIUM 1.9 mg/dL (1.6-2.3); POTASSIUM 3.2 mmol/L (3.6-5.0); SODIUM 151.2 mmol/L (137-145)
--- NOTE | 2016-06-04 08:21 | PDOC PROGRESS REPORT ---
Subjective Progress Note for:: 06/04/16 Subjective:: Patient was successfully extubated yesterday She states that she has no chest pain no shortness of breath is just some abdominal discomfort She is alert and awake and looks comfortable On the monitor she is in sinus rhythm Physical Exam Vital Signs: Temp Pulse Resp BP Pulse Ox 98.8 F 73 16 135/90 H 98 06/04/16 04:53 06/03/16 20:00 06/04/16 07:45 06/04/16 07:14 06/04/16 07:45 Intake & Output 06/03/16 06/04/16 06/05/16 00:59 00:59 00:59 Intake Total 1981 2969 1177 Output Total 4600 5225 685 Balance -7716 -7172 660 Weight 75.1 kg 76.1 kg 72.2 kg General appearance: PRESENT: no acute distress, cooperative, well-developed Head exam: PRESENT: atraumatic, normocephalic Eye exam: PRESENT: conjunctiva pink, EOMI, PERRLA. ABSENT: scleral icterus Neck exam: ABSENT: carotid bruit, JVD, lymphadenopathy, thyromegaly Respiratory exam: PRESENT: clear to auscultation jenaro, decreased breath sounds. ABSENT: rales, rhonchi, wheezes GI/Abdominal exam: PRESENT: normal bowel sounds, soft. ABSENT: distended, guarding, mass, organolmegaly, rebound, tenderness Extremities exam: PRESENT: +2 edema Neurological exam: PRESENT: alert, awake, oriented to person, oriented to place , oriented to time, oriented to situation, CN II-XII grossly intact. ABSENT: motor sensory deficit Results Laboratory Results: 06/04/16 04:15 06/04/16 04:15 06/03/16 06/04/16 06/04/16 14:40 04:15 04:15 WBC RBC Hgb Hct MCV MCH MCHC RDW Plt Count Seg Neutrophils % Lymphocytes % Monocytes % Eosinophils % Basophils % Absolute Neutrophils Absolute Lymphocytes Absolute Monocytes Absolute Eosinophils Absolute Basophils Carbonic Acid 0.97 L HCO3/H2CO3 Ratio 21:1 ABG pH 7.43 ABG pCO2 32.1 L ABG pO2 72.2 L ABG HCO3 20.6 ABG O2 Saturation 95.1 ABG Base Excess -3.1 FiO2 4 L Sodium 151.5 H 151.2 H Potassium 3.2 L 3.2 L Chloride 119 H 119 H Carbon Dioxide 19 L 20 L Anion Gap 14 12 BUN 25 H 23 H Creatinine 1.37 H 1.18 Est GFR ( Amer) 48 L 57 L Est GFR (Non-Af Amer) 40 L 47 L Glucose 106 76 Calcium 9.0 8.8 Magnesium 2.0 1.9 06/04/16 04:15 WBC 15.4 H RBC 3.41 L Hgb 9.6 L Hct 29.7 L MCV 87 MCH 28.0 MCHC 32.1 RDW 19.1 H Plt Count 182 Seg Neutrophils % 91.1 H Lymphocytes % 5.4 L Monocytes % 2.5 L Eosinophils % 0.8 Basophils % 0.2 Absolute Neutrophils 14.1 H Absolute Lymphocytes 0.8 Absolute Monocytes 0.4 Absolute Eosinophils 0.1 Absolute Basophils 0.0 Carbonic Acid HCO3/H2CO3 Ratio ABG pH ABG pCO2 ABG pO2 ABG HCO3 ABG O2 Saturation ABG Base Excess FiO2 Sodium Potassium Chloride Carbon Dioxide Anion Gap BUN Creatinine Est GFR ( Amer) Est GFR (Non-Af Amer) Glucose Calcium Magnesium 05/30/16 05/30/16 05/31/16 04:00 04:00 05:45 Creatine Kinase 110 CK-MB (CK-2) 3.10 Troponin I 0.270 0.136 Impressions: Abdomen Ultrasound 05/30/16 00:00 IMPRESSION: No gallstones are identified. There is thickening of the gallbladder ko and there is pericholecystic fluid. This was present on the previous CT scan. The possibility of an acalculous cholecystitis should be considered. Other findings as noted above Abdomen/Pelvis CT 05/30/16 01:00 IMPRESSION: There is relative increased density within the gallbladder lumen which could represent biliary sludge. Pericholecystic fluid is identified in the possibility of cholecystitis should be considered. Abdominal ultrasound may be of value for confirmation if clinically warranted. Bibasilar densities representing small bilateral pleural effusions with associated airspace consolidation which could represent atelectatic changes or basilar infiltrates. Other findings as noted above Hepatobiliary Scan Nuclear Medicine 05/31/16 00:00 IMPRESSION: NO CYSTIC OR COMMON DUCT OBSTRUCTION. KUB X-Ray 06/02/16 08:01 IMPRESSION: Allowing for paucity of bowel gas, negative study. Limited as above. Chest X-Ray 06/04/16 06:00 IMPRESSION: SLIGHT IMPROVED AERATION WITH DECREASE IN THE PLEURAL EFFUSIONS, PARTICULARLY ON THE LEFT. Assessment & Plan - Diagnosis (1) Acute acalculous cholecystitis Is this a current diagnosis for this admission?: YesPlan: Resolved with IV antibiotics We will continue broad-spectrum antibiotic treatment for a total of 10 days (2) Acute respiratory failure Qualifiers: Respiratory failure complication: unspecified whether with hypoxia or hypercapnia Qualified Code(s): J96.00 - Acute respiratory failure, unspecified whether with hypoxia or hypercapnia Is this a current diagnosis for this admission?: Yes (3) Hypokalemia Is this a current diagnosis for this admission?: YesPlan: Persistent we will replace (4) LLL pneumonia Qualifiers: Pneumonia type: due to unspecified organism Qualified Code(s): J18.1 - Lobar pneumonia, unspecified organism Is this a current diagnosis for this admission?: Yes (5) Non-ST elevation myocardial infarction (NSTEMI), type 2 Is this a current diagnosis for this admission?: Yes (6) Septic shock Is this a current diagnosis for this admission?: NoPlan: resolved (7) Hypernatremia Is this a current diagnosis for this admission?: YesPlan: Is still persistent we will continue D5W infusion (8) Hypoalbuminemia Is this a current diagnosis for this admission?: Yes (9) Acute renal failure Qualifiers: Acute renal failure type: unspecified Qualified Code(s): N17.9 - Acute kidney failure, unspecified Is this a current diagnosis for this admission?: YesPlan: Has resolved - Time Time Spent with patient: We will transfer patient to IMCU; nursing swallow evaluation IMCU ; initiate feedings Critical Time spent with patient: 15-24 minutes
[2016-06-04] MEDS: IPRATROPIUM/ALBUTEROL 0.5-2.5 MG/3 ML AMPUL NEB SCH ×3 (08:32→20:38)
[2016-06-04] MEDS: POTASSI CL 20 MEQ/50 ML RIDER 50 ML IV SCH ×2 (09:51→11:49)
[2016-06-04] MEDS: FONDAPARINUX SODIUM INJ 7.5 MG/0.6 ML DISP.SYRIN SUBCUT SCH (09:52)
[2016-06-04] MEDS: ALBUMIN HUMAN 50 ML IV SCH ×2 (09:52→21:25)
[2016-06-04] MEDS: HYDROCORTISONE SOD SUCCINATE INJ/PF 100 MG/2 ML SDV IV SCH ×2 (09:53→21:25)
[2016-06-04] MEDS: FAMOTIDINE INJ/PF 20 MG/2 ML SDV IV SCH ×2 (09:54→21:24)
[2016-06-04] MEDS ORDERED: NORMAL SALINE 250 ML IV PRN (10:24)
--- NOTE | 2016-06-04 10:43 | PDOC PROGRESS REPORT ---
Subjective Progress Note for:: 06/04/16 Subjective:: Awake, alert, without complaints Physical Exam Vital Signs: Temp Pulse Resp BP Pulse Ox 98.8 F 73 16 135/90 H 98 06/04/16 04:53 06/03/16 20:00 06/04/16 07:45 06/04/16 07:14 06/04/16 07:45 Intake & Output 06/03/16 06/04/16 06/05/16 06:59 06:59 06:59 Intake Total 2998 2265 Output Total 3350 5275 185 Balance -352 -3010 -185 Weight 76.1 kg 72.2 kg General appearance: PRESENT: no acute distress, disheveled, obese Head exam: PRESENT: atraumatic, normocephalic Eye exam: PRESENT: conjunctiva pale, EOMI Mouth exam: PRESENT: dry mucosa, neck supple Neck exam: ABSENT: carotid bruit, JVD, lymphadenopathy, thyromegaly Respiratory exam: PRESENT: decreased breath sounds, prolonged expiratory phas, rhonchi, symmetrical, unlabored Cardiovascular exam: PRESENT: irregular rhythm Pulses: PRESENT: normal radial pulses GI/Abdominal exam: PRESENT: normal bowel sounds, soft. ABSENT: distended, guarding, mass, organolmegaly, rebound, tenderness Rectal exam: PRESENT: deferred Gentrourinary exam: PRESENT: indwelling catheter Musculoskeletal exam: PRESENT: normal inspection Neurological exam: PRESENT: alert, awake Skin exam: PRESENT: dry, warm Results Laboratory Results: 06/04/16 04:15 06/04/16 04:15 06/03/16 06/04/16 06/04/16 14:40 04:15 04:15 WBC RBC Hgb Hct MCV MCH MCHC RDW Plt Count Seg Neutrophils % Lymphocytes % Monocytes % Eosinophils % Basophils % Absolute Neutrophils Absolute Lymphocytes Absolute Monocytes Absolute Eosinophils Absolute Basophils Carbonic Acid 0.97 L HCO3/H2CO3 Ratio 21:1 ABG pH 7.43 ABG pCO2 32.1 L ABG pO2 72.2 L ABG HCO3 20.6 ABG O2 Saturation 95.1 ABG Base Excess -3.1 FiO2 4 L Sodium 151.5 H 151.2 H Potassium 3.2 L 3.2 L Chloride 119 H 119 H Carbon Dioxide 19 L 20 L Anion Gap 14 12 BUN 25 H 23 H Creatinine 1.37 H 1.18 Est GFR ( Amer) 48 L 57 L Est GFR (Non-Af Amer) 40 L 47 L Glucose 106 76 Calcium 9.0 8.8 Magnesium 2.0 1.9 06/04/16 04:15 WBC 15.4 H RBC 3.41 L Hgb 9.6 L Hct 29.7 L MCV 87 MCH 28.0 MCHC 32.1 RDW 19.1 H Plt Count 182 Seg Neutrophils % 91.1 H Lymphocytes % 5.4 L Monocytes % 2.5 L Eosinophils % 0.8 Basophils % 0.2 Absolute Neutrophils 14.1 H Absolute Lymphocytes 0.8 Absolute Monocytes 0.4 Absolute Eosinophils 0.1 Absolute Basophils 0.0 Carbonic Acid HCO3/H2CO3 Ratio ABG pH ABG pCO2 ABG pO2 ABG HCO3 ABG O2 Saturation ABG Base Excess FiO2 Sodium Potassium Chloride Carbon Dioxide Anion Gap BUN Creatinine Est GFR ( Amer) Est GFR (Non-Af Amer) Glucose Calcium Magnesium 05/30/16 05/30/16 05/31/16 04:00 04:00 05:45 Creatine Kinase 110 CK-MB (CK-2) 3.10 Troponin I 0.270 0.136 Impressions: Abdomen Ultrasound 05/30/16 00:00 IMPRESSION: No gallstones are identified. There is thickening of the gallbladder ko and there is pericholecystic fluid. This was present on the previous CT scan. The possibility of an acalculous cholecystitis should be considered. Other findings as noted above Abdomen/Pelvis CT 05/30/16 01:00 IMPRESSION: There is relative increased density within the gallbladder lumen which could represent biliary sludge. Pericholecystic fluid is identified in the possibility of cholecystitis should be considered. Abdominal ultrasound may be of value for confirmation if clinically warranted. Bibasilar densities representing small bilateral pleural effusions with associated airspace consolidation which could represent atelectatic changes or basilar infiltrates. Other findings as noted above Hepatobiliary Scan Nuclear Medicine 05/31/16 00:00 IMPRESSION: NO CYSTIC OR COMMON DUCT OBSTRUCTION. KUB X-Ray 06/02/16 08:01 IMPRESSION: Allowing for paucity of bowel gas, negative study. Limited as above. Chest X-Ray 06/04/16 06:00 IMPRESSION: SLIGHT IMPROVED AERATION WITH DECREASE IN THE PLEURAL EFFUSIONS, PARTICULARLY ON THE LEFT. Assessment & Plan - Diagnosis (1) Abnormal CT scan, gallbladder Is this a current diagnosis for this admission?: Yes (2) Acute respiratory failure with hypoxia Is this a current diagnosis for this admission?: YesPlan: 24 hours status post extubation awake alert doing well acceptable ABG on 3 L nasal cannula (3) LLL pneumonia Qualifiers: Pneumonia type: due to unspecified organism Qualified Code(s): J18.1 - Lobar pneumonia, unspecified organism Is this a current diagnosis for this admission?: Yes (4) Septic shock Is this a current diagnosis for this admission?: No
[2016-06-04] MEDS ORDERED: FERRIC CARBOXYMALTOSE 750 MG in NORMAL SALINE 250 ML IV ONE (13:00)
[2016-06-04] MEDS ORDERED: PROMETHAZINE HCL INJ 25 MG/1 ML VIAL IV PRN (15:03)
[2016-06-04] MEDS: PROCHLORPERAZINE EDISYLATE INJ 10 MG/2 ML VIAL IV PRN (15:42)
[2016-06-04] MEDS: DEXTROSE 5%-NORMAL SALINE 1,000 ML IV PRN (15:47)
--- NOTE | 2016-06-04 16:19 | XCELERA REPORT ---
[address] [address] Transthoracic Echocardiogram Report Name: RAI VOGT Age: 60 yrs Gender: Female : 1955 Patient Status: Inpatient Patient Location: ICU\S\601\S\[id number] Study Date: 06/03/2016 09:15 AM Height: 66 in Weight: 167 lb BSA: 1.9 m2 Procedure: A two-dimensional transthoracic echocardiogram with color flow and Doppler was performed. Study Quality: Technically suboptimal. Reason For Study: NSTEMI History: NSTEMI. Ordering Physician: ARNIE ROSA Performed By: Merna Zavaleta Interpretation Summary The left ventricle is normal in size. There is normal left ventricular wall thickness. LV EF is 55% Left ventricular systolic function is low normal. Doppler measurements suggest normal left ventricular diastolic function The left ventricular wall motion is normal. There is no thrombus. The left atrial size is normal. The interatrial septum is difficult to see, but appears to be grossly normal There is no evidence of mitral valve prolapse. There is no mitral valve stenosis. There is a trace amount of mitral regurgitation The aortic valve is mildly calcified There is no aortic valve stenosis There is no LVOT obstruction. There is no tricuspid stenosis. There is a trace to mild amount of tricuspid regurgitation Right ventricular systolic pressure is normal. RVSP is > than 42 mm of Hg .with RA mean sung > than 20 The aortic root is normal size. There is no pericardial effusion. MMode/2D Measurements \T\ Calculations RVDd: 3.3 cm LVIDd: 5.7 cm FS: 26.6 % Ao root diam: IVSd: 1.0 cm LVIDs: 4.2 cm EDV(Teich): 2.8 cm LVPWd: 0.97 cm 157.3 ml Ao root area: ESV(Teich): 76.5 ml 6.2 cm2 EF(Teich): 51.3 % LA dimension: 3.1 cm LVOT diam: LVLd ap4: 8.2 cm SV(MOD-sp4): 2.2 cm EDV(MOD-sp4): 40.0 ml LVOT area: 77.0 ml LVLs ap4: 7.0 cm 3.7 cm2 ESV(MOD-sp4): 37.0 ml EF(MOD-sp4): 51.9 % Doppler Measurements \T\ Calculations MV E max anthony: MV P1/2t max anthony: Ao V2 max: LV V1 max P.1 cm/sec 68.8 cm/sec 99.4 cm/sec 3.3 mmHg MV A max anthony: MV P1/2t: 49.3 msec Ao max PG: LV V1 max: 55.8 cm/sec MVA(P1/2t): 4.5 cm2 4.0 mmHg 91.0 cm/sec MV E/A: 1.2 MV dec slope: NIHARIKA(V,D): 3.4 cm2 408.9 cm/sec2 PA V2 max: TR max anthony: 62.0 cm/sec 233.5 cm/sec PA max PG: TR max P.8 mmHg 1.5 mmHg Left Ventricle The left ventricle is normal in size. There is normal left ventricular wall thickness. LV EF is 55%. Left ventricular systolic function is low normal. Doppler measurements suggest normal left ventricular diastolic function. The left ventricular wall motion is normal. There is no thrombus. There is a post-myocardial infarction ventricular septal defect. Right Ventricle The right ventricle is grossly normal size. Atria The right atrium is normal. The left atrial size is normal. The interatrial septum is difficult to see, but appears to be grossly normal. Mitral Valve There is mild mitral annular calcification. There is no evidence of mitral valve prolapse. There is no vegetation seen on the mitral valve. There is no mitral valve stenosis. There is a trace amount of mitral regurgitation. Aortic Valve The aortic valve is trileaflet. The aortic valve opens well. The aortic valve is mildly calcified. There is no aortic valvular vegetation. There is no aortic valve stenosis. There is no LVOT obstruction. There is a trace amount of aortic regurgitation. Tricuspid Valve There is no tricuspid stenosis. There is a trace to mild amount of tricuspid regurgitation. Right ventricular systolic pressure is normal. RVSP is > than 42 mm of Hg .with RA mean sung > than 20. Pulmonic Valve There is no pulmonic valvular stenosis. There is no pulmonic valvular regurgitation. Great Vessels The aortic root is normal size. The inferior vena cava appeared dilated and did not change with respiration (RAP > 20 mmHg). Effusions There is no pericardial effusion. : ARNIE ROSA > Naa Douglas
[2016-06-04] MEDS ORDERED: ALBUMIN HUMAN 50 ML IV ONE (20:58)
[2016-06-05] MEDS ORDERED: PIPERACILLIN/TAZOBACTAM 3.375 GM VIAL IV ONE (01:50)
[2016-06-05] MEDS: PIPERACILLIN SODIUM/TAZOBACTAM 3.375 GM in NORMAL SALINE 100 ML IV SCH ×2 (02:19→10:11)
[2016-06-05] MEDS: MORPHINE SULFATE 10 MG/ML INJ IV SCH ×6 (02:32→22:17)
[2016-06-05] MEDS: METRONIDAZOLE 500 MG/NS RTU 100 ML IV SCH ×4 (03:38→21:17)
[2016-06-05] MEDS: DEXTROSE 5%-NORMAL SALINE 1,000 ML IV PRN (05:06)
[2016-06-05 05:20] LABS: HEMATOCRIT 29.2 % (36.0-47.0); HEMOGLOBIN 9.6 g/dL (12.0-15.5); HGB HCT DIFFERENCE -0.4; MEAN CORPUSCULAR HEMOGLOBIN 28.7 pg (27.0-33.4); MEAN CORPUSCULAR HGB CONC 32.9 g/dL (32.0-36.0); MEAN CORPUSCULAR VOLUME 87 fl (80-97); RED BLOOD COUNT 3.36 10^6/uL (3.72-5.28); WHITE BLOOD COUNT 12.7 10^3/uL (4.0-10.5)
[2016-06-05 05:36] LABS: BLOOD UREA NITROGEN 19 mg/dL (7-20); CALCIUM 8.9 mg/dL (8.4-10.2); CREATININE RESULT 1.11 mg/dL (0.52-1.25); GLUCOSE 74 mg/dL (75-110)
[2016-06-05 05:37] LABS: ANION GAP 11 (5-19); CARBON DIOXIDE 22 mmol/L (22-30); CHLORIDE 117 mmol/L (98-107); MAGNESIUM 1.9 mg/dL (1.6-2.3); POTASSIUM 3.7 mmol/L (3.6-5.0)
[2016-06-05 05:59] LABS: BAND NEUTROPHILS % (MANUAL) 6 % (3-5); BASOPHILS % (MANUAL) 0 % (0-2); EOSINOPHILS % (MANUAL) 1 % (0-6); LYMPHOCYTES % (MANUAL) 2 % (13-45); TOTAL CELLS COUNTED 100
[2016-06-05 06:02] LABS: POLYCHROMASIA 1+; TOXIC GRANULATION 1+
[2016-06-05 06:03] LABS: ANISOCYTOSIS 2+; OVALOCYTES 1+; POIKILOCYTOSIS 1+; TEAR DROP CELLS SLIGHT
[2016-06-05 06:08] LABS: ARTERIAL BLOOD BASE EXCESS -5.8 mmol/L; ARTERIAL BLOOD O2 SATURATION 96.8 % (94-98)
[2016-06-05] MEDS: PROCHLORPERAZINE EDISYLATE INJ 10 MG/2 ML VIAL IV PRN ×4 (06:14→18:05)
[2016-06-05] MEDS: IPRATROPIUM/ALBUTEROL 0.5-2.5 MG/3 ML AMPUL NEB SCH ×3 (08:35→20:10)
[2016-06-05] MEDS: FAMOTIDINE INJ/PF 20 MG/2 ML SDV IV SCH ×2 (10:10→21:16)
[2016-06-05] MEDS: HYDROCORTISONE SOD SUCCINATE INJ/PF 100 MG/2 ML SDV IV SCH ×2 (10:12→10:39)
[2016-06-05] MEDS ORDERED: DEXTROSE 5%-WATER 1000 ML 1,000 ML IV PRN (10:13)
[2016-06-05] MEDS: FONDAPARINUX SODIUM INJ 7.5 MG/0.6 ML DISP.SYRIN SUBCUT SCH (10:53)
[2016-06-05] MEDS ORDERED: FUROSEMIDE INJ/PF 40 MG/4 ML SDV IV ONE (11:00)
[2016-06-05] MEDS ORDERED: LEVOFLOXACIN 500 MG/D5W RTU 500 MG/100 ML RTUPB IV ONE (11:00)
[2016-06-05] MEDS: FUROSEMIDE INJ/PF 40 MG/4 ML SDV IV SCH ×2 (14:08→21:17)
[2016-06-05] MEDS ORDERED: FUROSEMIDE INJ/PF 40 MG/4 ML SDV IV SCH (22:00)
[2016-06-06] MEDS: MORPHINE SULFATE 10 MG/ML INJ IV SCH ×2 (02:14→06:42)
[2016-06-06 05:53] LABS: ANION GAP 13 (5-19); BLOOD UREA NITROGEN 15 mg/dL (7-20); CALCIUM 8.7 mg/dL (8.4-10.2); CARBON DIOXIDE 29 mmol/L (22-30); CHLORIDE 104 mmol/L (98-107); CREATININE RESULT 1.25 mg/dL (0.52-1.25); GLUCOSE 92 mg/dL (75-110); SODIUM 145.5 mmol/L (137-145)
[2016-06-06 06:26] LABS: POTASSIUM 2.5 mmol/L (3.6-5.0)
[2016-06-06] MEDS: METRONIDAZOLE 500 MG/NS RTU 100 ML IV SCH (06:34)
[2016-06-06] MEDS: FUROSEMIDE INJ/PF 40 MG/4 ML SDV IV SCH (06:35)
[2016-06-06 07:29] LABS: ABSOLUTE EOSINOPHILS # (AUTO) 0.1 10^3/uL (0.0-0.6); ABSOLUTE MONOCYTES (AUTO) 0.3 10^3/uL (0.1-1.4); ABSOLUTE NEUT (AUTO) 10.5 10^3/uL (1.7-8.2); BASOPHILS % (AUTO) 0.3 % (0-2); EOSINOPHILS % (AUTO) 0.9 % (0-6); HEMATOCRIT 34.4 % (36.0-47.0); HEMOGLOBIN 11.3 g/dL (12.0-15.5); HGB HCT DIFFERENCE -0.5; LYMPHOCYTES % (AUTO) 7.9 % (13-45); MEAN CORPUSCULAR HEMOGLOBIN 28.4 pg (27.0-33.4); MEAN CORPUSCULAR HGB CONC 32.8 g/dL (32.0-36.0); MEAN CORPUSCULAR VOLUME 86 fl (80-97); MONOCYTES % (AUTO) 2.9 % (3-13); RED BLOOD COUNT 3.99 10^6/uL (3.72-5.28)
[2016-06-06 07:46] LABS: ALANINE AMINOTRANSFERASE 144 U/L (9-52); ALBUMIN 2.8 g/dL (3.5-5.0); ALKALINE PHOSPHATASE 87 U/L (38-126); ANION GAP 13 (5-19); ASPARTATE AMINO TRANSFERASE 22 U/L (14-36); BILIRUBIN,DIRECT 0.5 mg/dL (0.0-0.4); BLOOD UREA NITROGEN 15 mg/dL (7-20); CALCIUM 8.9 mg/dL (8.4-10.2); CARBON DIOXIDE 30 mmol/L (22-30); CHLORIDE 102 mmol/L (98-107); GLUCOSE 85 mg/dL (75-110); SODIUM 145.3 mmol/L (137-145); TOTAL PROTEIN 5.4 g/dL (6.3-8.2)
[2016-06-06] MEDS ORDERED: PROCHLORPERAZINE EDISYLATE INJ 10 MG/2 ML VIAL ONE (07:47)
[2016-06-06 07:49] LABS: POTASSIUM 2.5 mmol/L (3.6-5.0)
[2016-06-06] MEDS: PROCHLORPERAZINE EDISYLATE INJ 10 MG/2 ML VIAL IV PRN ×2 (08:05→16:03)
[2016-06-06] MEDS: IPRATROPIUM/ALBUTEROL 0.5-2.5 MG/3 ML AMPUL NEB SCH ×3 (08:41→20:20)
[2016-06-06 09:45] LABS: ANION GAP 14 (5-19); BLOOD UREA NITROGEN 15 mg/dL (7-20); CALCIUM 9.1 mg/dL (8.4-10.2); CARBON DIOXIDE 31 mmol/L (22-30); CHLORIDE 100 mmol/L (98-107); CREATININE RESULT 1.25 mg/dL (0.52-1.25); GLUCOSE 99 mg/dL (75-110); SODIUM 144.8 mmol/L (137-145)
[2016-06-06] MEDS: FAMOTIDINE INJ/PF 20 MG/2 ML SDV IV SCH ×2 (09:51→22:21)
[2016-06-06] MEDS: POTASSI CL 20 MEQ/50 ML RIDER 20 MEQ/50 ML RTUPB IV SCH ×3 (09:51→13:38)
[2016-06-06] MEDS: FONDAPARINUX SODIUM INJ 7.5 MG/0.6 ML DISP.SYRIN SUBCUT SCH (09:52)
[2016-06-06 09:53] LABS: POTASSIUM 2.5 mmol/L (3.6-5.0)
[2016-06-06] MEDS ORDERED: POTASSIUM CHLORIDE 20 MEQ/15 ML UDCUP PO ONE (10:00)
[2016-06-06] MEDS ORDERED: LEVOFLOXACIN 500 MG/D5W RTU 500 MG/100 ML RTUPB IV SCH (10:00)
[2016-06-06] MEDS: INSULIN LISPRO 100 UNIT/ML 3 ML VIAL SUBCUT PRN ×2 (10:37→13:35)
[2016-06-06] MEDS ORDERED: TRAMADOL HCL 50 MG TABLET PO PRN (12:29)
[2016-06-06] MEDS ORDERED: METOPROLOL TARTRATE 25 MG TABLET PO ONE (16:00)
[2016-06-06] MEDS ORDERED: ALTEPLASE INJ 2 MG VIAL (CATH CLEARANCE) INJ PRN (16:15)
[2016-06-06] MEDS: LACTOBACILLUS ACIDOPHILUS 250 MG TAB PO SCH (17:11)
[2016-06-06 17:14] LABS: ANION GAP 11 (5-19); BLOOD UREA NITROGEN 16 mg/dL (7-20); CALCIUM 8.7 mg/dL (8.4-10.2); CARBON DIOXIDE 33 mmol/L (22-30); CHLORIDE 99 mmol/L (98-107); CREATININE RESULT 1.22 mg/dL (0.52-1.25); GLUCOSE 77 mg/dL (75-110); POTASSIUM 3.1 mmol/L (3.6-5.0); SODIUM 143.4 mmol/L (137-145)
--- NOTE | 2016-06-06 17:51 | EKG REPORT ---
SEVERITY:- ABNORMAL ECG - SINUS TACHYCARDIA ATRIAL PREMATURE COMPLEX ES LVH WITH SECONDARY REPOLARIZATION ABNORMALITY ST DEPRESSION, CONSIDER ISCHEMIA, ANT-LAT LDS : Confirmed by: Kermit Champagne MD 06-Jun-2016 17:50:35
[2016-06-06] MEDS: OXYCODONE HCL IR 5 MG TABLET PO PRN (20:08)
[2016-06-06] MEDS: METOPROLOL TARTRATE 25 MG TABLET PO SCH (22:21)
[2016-06-07] MEDS: OXYCODONE HCL IR 5 MG TABLET PO PRN ×3 (01:15→20:11)
[2016-06-07 06:16] LABS: ALANINE AMINOTRANSFERASE 109 U/L (9-52); ALBUMIN 2.6 g/dL (3.5-5.0); ALKALINE PHOSPHATASE 83 U/L (38-126); ANION GAP 10 (5-19); ASPARTATE AMINO TRANSFERASE 21 U/L (14-36); BILIRUBIN,DIRECT 0.3 mg/dL (0.0-0.4); BILIRUBIN,TOTAL 0.6 mg/dL (0.2-1.3); BLOOD UREA NITROGEN 14 mg/dL (7-20); CALCIUM 8.3 mg/dL (8.4-10.2); CARBON DIOXIDE 33 mmol/L (22-30); CHLORIDE 101 mmol/L (98-107); CREATININE RESULT 1.27 mg/dL (0.52-1.25); GLUCOSE 85 mg/dL (75-110); MAGNESIUM 1.5 mg/dL (1.6-2.3); TOTAL PROTEIN 4.9 g/dL (6.3-8.2)
[2016-06-07 06:22] LABS: POTASSIUM 2.7 mmol/L (3.6-5.0)
[2016-06-07] MEDS ORDERED: POTASSIUM CHLORIDE 10 MEQ TABLET.SA PO ONE (06:38)
[2016-06-07] MEDS: MAGNESIUM SULFATE/D5W 1 GM/100 ML RTUPB IV SCH ×2 (07:52→09:40)
[2016-06-07] MEDS: POTASSI CL 20 MEQ/50 ML RIDER 20 MEQ/50 ML RTUPB IV SCH ×2 (07:53→09:46)
[2016-06-07] MEDS: IPRATROPIUM/ALBUTEROL 0.5-2.5 MG/3 ML AMPUL NEB SCH ×3 (07:59→20:01)
[2016-06-07] MEDS: FAMOTIDINE INJ/PF 20 MG/2 ML SDV IV SCH (09:48)
[2016-06-07] MEDS: METOPROLOL TARTRATE 25 MG TABLET PO SCH ×2 (09:49→22:15)
[2016-06-07] MEDS: LACTOBACILLUS ACIDOPHILUS 250 MG TAB PO SCH (09:49)
[2016-06-07] MEDS: FONDAPARINUX SODIUM INJ 7.5 MG/0.6 ML DISP.SYRIN SUBCUT SCH (09:57)
[2016-06-07] MEDS: LEVOFLOXACIN 500 MG TABLET PO SCH (09:58)
[2016-06-07] MEDS ORDERED: FUROSEMIDE INJ/PF 40 MG/4 ML SDV IV SCH (10:00)
[2016-06-07] MEDS ORDERED: POTASSIUM CHLORIDE 20 MEQ/15 ML UDCUP PO ONE (10:30)
--- NOTE | 2016-06-07 10:32 | PDOC PROGRESS REPORT ---
Subjective Progress Note for:: 06/07/16 Subjective:: Still coughing weak poor p.o. intake Physical Exam Vital Signs: Temp Pulse Resp BP Pulse Ox 98.5 F 79 16 128/79 H 94 06/07/16 07:17 06/07/16 07:59 06/07/16 07:59 06/07/16 07:17 06/07/16 07:59 Intake & Output 06/06/16 06/07/16 06/08/16 06:59 06:59 06:59 Intake Total 2488 1336 Output Total 1500 Balance 988 1336 Weight 69.5 kg 62.9 kg General appearance: PRESENT: no acute distress, cooperative, disheveled, obese Head exam: PRESENT: atraumatic, normocephalic Eye exam: PRESENT: conjunctiva pale, EOMI Mouth exam: PRESENT: moist, neck supple Neck exam: ABSENT: carotid bruit, JVD, lymphadenopathy, thyromegaly Respiratory exam: PRESENT: decreased breath sounds, prolonged expiratory phas, rhonchi, symmetrical, unlabored, wheezes Cardiovascular exam: PRESENT: RRR, +S1, +S2 Pulses: PRESENT: normal radial pulses GI/Abdominal exam: PRESENT: normal bowel sounds, soft. ABSENT: distended, guarding, mass, organolmegaly, rebound, tenderness Rectal exam: PRESENT: deferred Gentrourinary exam: PRESENT: indwelling catheter Musculoskeletal exam: PRESENT: normal inspection Neurological exam: PRESENT: alert, awake Psychiatric exam: PRESENT: normal mood Skin exam: PRESENT: dry, warm Results Laboratory Results: 06/06/16 06:45 06/07/16 05:45 06/06/16 06/07/16 16:40 05:45 Sodium 143.4 144.0 Potassium 3.1 L 2.7 L* Chloride 99 101 Carbon Dioxide 33 H 33 H Anion Gap 11 10 BUN 16 14 Creatinine 1.22 1.27 H Est GFR ( Amer) 55 L 52 L Est GFR (Non-Af Amer) 45 L 43 L Glucose 77 85 Calcium 8.7 8.3 L Magnesium 1.5 L Total Bilirubin 0.6 AST 21 ALT 109 H Alkaline Phosphatase 83 Total Protein 4.9 L Albumin 2.6 L 05/30/16 05/30/16 05/31/16 04:00 04:00 05:45 Creatine Kinase 110 CK-MB (CK-2) 3.10 Troponin I 0.270 0.136 Impressions: Abdomen Ultrasound 05/30/16 00:00 IMPRESSION: No gallstones are identified. There is thickening of the gallbladder ko and there is pericholecystic fluid. This was present on the previous CT scan. The possibility of an acalculous cholecystitis should be considered. Other findings as noted above Abdomen/Pelvis CT 05/30/16 01:00 IMPRESSION: There is relative increased density within the gallbladder lumen which could represent biliary sludge. Pericholecystic fluid is identified in the possibility of cholecystitis should be considered. Abdominal ultrasound may be of value for confirmation if clinically warranted. Bibasilar densities representing small bilateral pleural effusions with associated airspace consolidation which could represent atelectatic changes or basilar infiltrates. Other findings as noted above Hepatobiliary Scan Nuclear Medicine 05/31/16 00:00 IMPRESSION: NO CYSTIC OR COMMON DUCT OBSTRUCTION. KUB X-Ray 06/02/16 08:01 IMPRESSION: Allowing for paucity of bowel gas, negative study. Limited as above. Chest X-Ray 06/05/16 06:00 IMPRESSION: Small bilateral pleural effusions with pulmonary vascular congestion. Question mild perihilar edema. Findings are similar compared to . Persistent dense consolidation left lower lobe atelectasis versus pneumonia. Assessment & Plan - Diagnosis (1) Abnormal CT scan, gallbladder Is this a current diagnosis for this admission?: No (2) Acute respiratory failure with hypoxia Is this a current diagnosis for this admission?: YesPlan: doing well still coughing phlegm (3) LLL pneumonia Qualifiers: Pneumonia type: due to unspecified organism Qualified Code(s): J18.1 - Lobar pneumonia, unspecified organism Is this a current diagnosis for this admission?: Yes (4) Septic shock Is this a current diagnosis for this admission?: No
--- NOTE | 2016-06-07 10:39 | PROGRESS NOTE E ---
Progress Note NAME: RAI VOGT : 1955 AGE: 60Y DATE: ROOM: 331 SUBJECTIVE: The patient was seen from 8:00 a.m. to 8:30 a.m., which is 30 minutes. On examination, the patient is sedated and is easily arousable, moves all 4 extremities and gestures appropriately. By gesturing, she denies any chest pain or discomfort. There is no shortness of breath. There is no arrhythmia seen on the monitor. There is no leg edema. The patient gestures that she has no chest pain. OBJECTIVE: GENERAL: The patient is well built and well nourished in no acute distress. VITAL SIGNS: She is afebrile with a temperature of 98.4 degrees Fahrenheit, pulse is 64 beats per minute, blood pressure 119/81, respirations are 22 per minute, and 02 sats on mechanical ventilator are 96% on an FiO2 of 35%. HEENT: Head: Atraumatic, normocephalic. Eyes: Pupils are equal, round, regular, reactive to light. Note there is no tongue swelling. ENT is negative. NECK: Supple. There is no JVD. Carotids are equal. There is no bruit. There is no goiter. There is no lymphadenopathy. Trachea is central. LUNGS: Show still small area of absent breath sounds in both bases. There are dry crackles of pneumonia, right greater than left. There are no rales of CHF. CARDIOVASCULAR: S1 and S2 are heard. There is no S3 gallop. There is no S4 gallop. There is a systolic murmur in the left sternal border and the apex. There is no rub. ABDOMEN: Soft, nontender. There is no hepatosplenomegaly. Bowel sounds are well heard. There is no rebound, guarding or rigidity. EXTREMITIES: Femorals are diminished. There are no femoral bruits. Leg pulses are diminished. There is some degree of anasarca which is much less. There are no femoral bruits. 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 NEUROLOGICAL: The patient is awake and alert but intubated but follow commands. There does not appear to be *------*. PSYCHIATRIC: The patient is not agitated. She is sedated lightly and is not fighting the ventilator. DIAGNOSTIC STUDIES: The patient's 24-hour intake is 2998 mL; output is 3350 mL. The chest x-ray shows bibasilar densities and pleural effusions unchanged. No evidence of heart failure. The patient's white count is 16,100, the patient's hemoglobin is 8.9, hematocrit is 26.8 and the platelet count is 169,000. The patient's sodium is 149.3, potassium is 3.4, chloride 120, CO2 is 17, the patient's BUN is 27, creatinine is 1.54, GFR is reduced at 35 mL, which is still acute kidney stone but stage 3. Glucose is 124. The patient's calcium is 8.5, magnesium is 2.0. Her liver function tests show elevated ALT of 374. The patient's total protein is 4.5 and albumin is 2.3. IMPRESSION: 1. ELEVATED TROPONIN I AND ISCHEMIC EKG CHANGES SECONDARY TO HYPOTENSION DUE TO SEPTIC SHOCK AND HYPOXEMIA AND SEPSIS. Is most likely type-2 VA secondary to supply demand mismatch. No definitive evidence of non-ST elevation VA but once the patient is extubated, would ask the patient if she has had any chest pains or any stress tests. Note that Dr. Mckeon has ordered an echocardiogram to see if there is any wall motion abnormality. 2. ABNORMAL EKG, IMPROVED. 3. ACUTE HYPOXIC RESPIRATORY FAILURE. The patient is much improved. Her ABGs today show pH of 7.46, PCO2 is 22.3, PO2 is 86.4 with an O2 sat of 97.2 on FiO2 of 35%. Anticipate extubation of the patient today. 4. BILATERAL PNEUMONIA WITH SMALL BILATERAL PLEURAL EFFUSIONS. Continue antibiotics. This seems to be unchanged. 5. NO DEFINITE EVIDENCE OF ACUTE ACALCULOUS CHOLECYSTITIS. Hence, the surgeons have not planned any surgery and they signed off. 7. HYPERNATREMIA. The plan is to give the patient free fluids. 8. HYPERCHLOREMIA. Again, free fluids will help this. 9. HISTORY OF HYPERCOAGULABLE STATE. The plan is to continue Arixtra and also the plan is to refer her to a public services librarian/oncologist locally in town as mentioned earlier in x-ray report. Later as an outpatient, will recommend a Cardiolite stress test and would not recommend doing a stress test this admission since the patient's pneumonia needs to completely clear. RECOMMENDATIONS: As mentioned earlier, recommend the patient's current IV fluids, continue antibiotics, continue respiratory treatments and the patient is anticipated to be extubated today. Will check echo when it is done. At present, the patient does not require surgery. The medical decision making is of moderate complexity. Thirty minutes spent on this patient with more than 50% of the time spent on direct patient care and also review of the patient's medications and coordinating care with other physicians on the case. Will check the echo when it is done. Once the patient is extubated and I get another history about her cardiac status, then if that is negative, will sign off. Thanking you. DICTATING PHYSICIAN: FERNANDO QUEVEDO M.D. [id number] PHY#: [id number] ID: [id number] JOB#: [id number] ACCT: [id number] cc: >
--- NOTE | 2016-06-07 10:42 | PROGRESS NOTE E ---
Progress Note NAME: RAI VOGT : 1955 AGE: 60Y DATE: 06/05/2016 ROOM: 331 SUBJECTIVE: Note that I was with the patient from 1:30 p.m. to 2:00 p.m. Note the patient appears to be slightly short of breath. Compared to yesterday she still has a cough but is not able to produce anything. She does have some orthopnea but no PND. There is no leg edema but the patient appears to be bloated which may be due to low albumin. There is no arrhythmia seen on the monitor. The patient denies any chest pain or discomfort. OBJECTIVE: GENERAL: On examination the patient is in mild respiratory distress but no accessory muscles of respiration in use. She is well-built and well-nourished. VITAL SIGNS: She is afebrile with a temperature of 98.4 degrees Fahrenheit. Her blood pressure is 161/89, pulse is 103 beats per minute, respirations are 22 beats per minute. O2 sats are 92% on 2 liters nasal cannula. HEENT: Head is atraumatic, normocephalic. EYES: Pupils are equal, round, regular, reactive to light and accommodation. Extraocular movements are normal. There is no conjunctival pallor. NECK: Supple. There is no JVD. Carotids are equal. There is no bruit. There is no goiter. There is no lymphadenopathy. Trachea is central. LUNGS: Show still a small area of absent breath sounds in both bases. There are dry crackles especially in the left lower lobe. There are no rales or CHF. The rest of the lungs show prolonged expiration and diminished air entry throughout. On percussion, the rest of the area shows hyperresonance. HEART: S1 and S2 are heard. There is no S3 gallop. There is no S4 gallop. There is a systolic murmur at the left sternal border and the apex. There is no rub. ABDOMEN: Soft and nontender. There is no hepatosplenomegaly. Bowel sounds are well heard. There is no rebound, guarding or rigidity. EXTREMITIES: Femorals are diminished. Leg pulses are diminished. There are no femoral bruits. There is no pedal edema. There is no femoral bruit. The left BKA. There is no cyanosis or clubbing. NEUROLOGIC: The patient is awake, alert, oriented x3 with no focal deficits. PSYCHIATRIC: The patient appears to be slightly anxious but he is not agitated. LABORATORY DATA: The patient's white count is 4700, hemoglobin is 9.6, hematocrit is 29.2, the platelet count is 200,000. The patient's sodium is elevated at 150, potassium is 3.7, chloride 117. The patient's CO2 is 22. The patient's BUN is 19, creatinine is 1.11. GFR is reduced to 50 which is stage 3A CKD. Glucose is 74. The patient's magnesium is 1.9, calcium is 8.9. The patient's ABG shows a pH of 7.44, pCO2 of 25.8, pO2 is 84.1 and 02 sats are 96.8% on 2 L. The patient's stool occult blood is positive on 06/05/2016. DIAGNOSTIC DATA: The patient's chest x-ray shows small pleural effusions bilaterally and evidence of consolidation in the left lower lobe. In my opinion, there is no congestive heart failure. The patient's 24-hour intake is 1666 ml. Output is 6075 mL. IMPRESSION: 1. ELEVATED TROPONIN I AND ISCHEMIC CHANGES ON ADMISSION SECONDARY TO HYPOTENSION DUE TO SEPTIC SHOCK AND HYPOXEMIA AND SEPSIS. THIS HAS RESOLVED. THIS IS DUE TO AND POST EXTUBATION THE PATIENT DENIES ANY HISTORY OF CORONARY ARTERY DISEASE OR ANGINAL SYMPTOMS. 2. ABNORMAL EKG, MUCH IMPROVED. 3. ACUTE HYPOXIC RESPIRATORY FAILURE, BETTER. PATIENT IS STILL ON RESPIRATORY TREATMENTS AND ANTIBIOTICS AND HE IS ALSO ON NASAL O2. 4. BILATERAL PNEUMONIA WITH SMALL BILATERAL PLEURAL EFFUSION. AT PRESENT THERE ARE SMALL BILATERAL PLEURAL EFFUSIONS AND EVIDENCE OF PNEUMONIA IN THE LEFT LOWER LOBE. HENCE, THE PATIENT HAS MADE SOME DEGREE OF PROGRESS. 5. ACUTE ACALCULOUS CHOLECYSTITIS MAY NOT BE ACCURATE SINCE THE HIDA SCAN IS AGAINST TO THIS DIAGNOSIS AND THE SURGEONS DO NOT WANT TO DO ANY SURGERY ON THIS PATIENT. 6. HYPERNATREMIA WITH HYPERCHLOREMIA. THE PATIENT NEEDS FREE WATER. 7. HYPERCOAGULABLE STATE PER RECORDS FROM [facility]. 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 IT WAS FELT THAT THE LIMB WAS NOT SALVAGEABLE AND THE PATIENT HAS A LEFT BKA. In view of the hypercoagulable state, the patient is on Arixtra. Would recommend as an outpatient to follow up with Dr. Daley. As per the patient, the patient states that she has already seen Dr. Daley and she does not know the etiology of this hypercoagulable state. Will have the patient follow up with Dr. Daley as an outpatient. 10. MALNUTRITION WITH LOW ALBUMIN. The patient needs albumin which can cause the patient to have generalized edema although I do not see any even in the legs. PLAN: 1. Continue albuterol. 2. Continue Arixtra. 3. Continue Pepcid. 4. Increase Lasix to 40 mg IV q.8 hours. 5. Continue Levaquin and metronidazole. 6. The patient is on D5W at 50 mL per hour which is 5%. 7. Continue ipratropium/albuterol sulfate nebulizer treatment. 8. Continue . 9. Would recommend a dietary consult for probably supplemental nutrition given enteral to increase the patient's albumin. Note 30 minutes spent on this patient with more than 50% of the time spent on direct patient care. The patient's medication has been reviewed and medication adjustment by increasing Lasix has been done. Also discussed with the nurse taking care of the patient and also coordination of care done with other care providers on the case. Will follow with you. The patient as an outpatient should have a Lexiscan Cardiolite once her COPD goes back to baseline and the patient's pneumonia is cured. DICTATING PHYSICIAN: FERNANDO QUEVEDO M.D. [id number] ALIZE#: [id number] ID: [id number] JOB#: [id number] ACCT: [id number] cc: >
[2016-06-07] MEDS ORDERED: POTASSIUM CHLORIDE 20 MEQ/50 ML RTU IV ONE (13:30)
[2016-06-07] MEDS ORDERED: OXYCODONE HCL SR 10 MG TABLET PO ONE (14:00)
--- NOTE | 2016-06-07 14:02 | PDOC PROGRESS REPORT ---
Subjective Progress Note for:: 06/07/16 Subjective:: Patient is complaining of phantom pains She states that the pain is still 10 over 10 Prior to admission she was on OxyContin 20 mg every 8 hours and Dilaudid when necessary Opiates have been cut down to only 5 mg every 4 which does not seem to control the pain We will a increase opiates to 10 mg OxyContin every 12 we suggested to the patient that she uses TENS unit Patient has minimal a shortness of breath no chest pain no cough no fever She is otherwise feeling well Physical Exam Vital Signs: Temp Pulse Resp BP Pulse Ox 98.5 F 71 16 128/79 H 95 06/07/16 07:17 06/07/16 13:51 06/07/16 13:51 06/07/16 07:17 06/07/16 13:51 Intake & Output 06/06/16 06/07/16 06/08/16 00:59 00:59 00:59 Intake Total 2231995 380 Output Total 1900 Balance 335 1995 380 Weight 69.5 kg 62.9 kg General appearance: PRESENT: no acute distress, thin Head exam: PRESENT: atraumatic, normocephalic Eye exam: PRESENT: conjunctiva pink, EOMI, PERRLA. ABSENT: scleral icterus Neck exam: ABSENT: carotid bruit, JVD, lymphadenopathy, thyromegaly Respiratory exam: PRESENT: clear to auscultation jenaro. ABSENT: rales, rhonchi, wheezes Cardiovascular exam: PRESENT: RRR. ABSENT: diastolic murmur, rubs, systolic murmur GI/Abdominal exam: PRESENT: normal bowel sounds, soft. ABSENT: distended, guarding, mass, organolmegaly, rebound, tenderness Neurological exam: PRESENT: alert, awake, oriented to person, oriented to place , oriented to time, oriented to situation, CN II-XII grossly intact. ABSENT: motor sensory deficit Results Laboratory Results: 06/06/16 06:45 06/07/16 05:45 06/06/16 06/07/16 16:40 05:45 Sodium 143.4 144.0 Potassium 3.1 L 2.7 L* Chloride 99 101 Carbon Dioxide 33 H 33 H Anion Gap 11 10 BUN 16 14 Creatinine 1.22 1.27 H Est GFR ( Amer) 55 L 52 L Est GFR (Non-Af Amer) 45 L 43 L Glucose 77 85 Calcium 8.7 8.3 L Magnesium 1.5 L Total Bilirubin 0.6 AST 21 ALT 109 H Alkaline Phosphatase 83 Total Protein 4.9 L Albumin 2.6 L 05/30/16 05/30/16 05/31/16 04:00 04:00 05:45 Creatine Kinase 110 CK-MB (CK-2) 3.10 Troponin I 0.270 0.136 Impressions: Abdomen Ultrasound 05/30/16 00:00 IMPRESSION: No gallstones are identified. There is thickening of the gallbladder ko and there is pericholecystic fluid. This was present on the previous CT scan. The possibility of an acalculous cholecystitis should be considered. Other findings as noted above Abdomen/Pelvis CT 05/30/16 01:00 IMPRESSION: There is relative increased density within the gallbladder lumen which could represent biliary sludge. Pericholecystic fluid is identified in the possibility of cholecystitis should be considered. Abdominal ultrasound may be of value for confirmation if clinically warranted. Bibasilar densities representing small bilateral pleural effusions with associated airspace consolidation which could represent atelectatic changes or basilar infiltrates. Other findings as noted above Hepatobiliary Scan Nuclear Medicine 05/31/16 00:00 IMPRESSION: NO CYSTIC OR COMMON DUCT OBSTRUCTION. KUB X-Ray 06/02/16 08:01 IMPRESSION: Allowing for paucity of bowel gas, negative study. Limited as above. Chest X-Ray 06/05/16 06:00 IMPRESSION: Small bilateral pleural effusions with pulmonary vascular congestion. Question mild perihilar edema. Findings are similar compared to . Persistent dense consolidation left lower lobe atelectasis versus pneumonia. Assessment & Plan - Diagnosis (1) Acute acalculous cholecystitis Is this a current diagnosis for this admission?: YesPlan: Resolved with medical management Sepsis secondary to cholecystitis resolved (2) Acute respiratory failure Qualifiers: Respiratory failure complication: unspecified whether with hypoxia or hypercapnia Qualified Code(s): J96.00 - Acute respiratory failure, unspecified whether with hypoxia or hypercapnia Is this a current diagnosis for this admission?: Yes (3) Hypokalemia Is this a current diagnosis for this admission?: YesPlan: Replace electrolytes We will discontinue Lasix at this time Follow-up BMP in a.m. (4) LLL pneumonia Qualifiers: Pneumonia type: due to unspecified organism Qualified Code(s): J18.1 - Lobar pneumonia, unspecified organism Is this a current diagnosis for this admission?: YesPlan: Persistent left lower lobe infiltrate Continue Levaquin for another 7 days (5) Non-ST elevation myocardial infarction (NSTEMI), type 2 Is this a current diagnosis for this admission?: YesPlan: Patient has no chest pain Non-STEMI secondary to hypoxemia hypertension or type II No workup necessary Continue present present management (6) Septic shock Is this a current diagnosis for this admission?: NoPlan: Has resolved (7) Hypoalbuminemia Is this a current diagnosis for this admission?: YesPlan: Secondary to poor nutrition encourage high-protein diet (8) Acute renal failure Qualifiers: Acute renal failure type: unspecified Qualified Code(s): N17.9 - Acute kidney failure, unspecified Is this a current diagnosis for this admission?: YesPlan: has resolved (9) Phantom pain Is this a current diagnosis for this admission?: YesPlan: Resume opiates Spoke at length with the patient Objective decrease OxyContin to only 10 mg twice a day And give her 5 mg of oxycodone for breakthrough pain Patient to use TENS unit as needed - Time Time Spent with patient: Patient may be discharged within 24-48 hrs. if she continues to improve Time Spent with patient: 35 or more minutes
[2016-06-07] MEDS: PROCHLORPERAZINE EDISYLATE INJ 10 MG/2 ML VIAL IV PRN ×2 (14:33→22:19)
[2016-06-07] MEDS: OXYCODONE HCL SR 10 MG TABLET PO SCH (22:14)
[2016-06-08] MEDS: PROCHLORPERAZINE EDISYLATE INJ 10 MG/2 ML VIAL IV PRN ×3 (06:14→18:43)
[2016-06-08] MEDS: OXYCODONE HCL IR 5 MG TABLET PO PRN ×3 (06:14→18:43)
[2016-06-08] MEDS: IPRATROPIUM/ALBUTEROL 0.5-2.5 MG/3 ML AMPUL NEB SCH ×3 (08:22→20:13)
[2016-06-08] MEDS: OXYCODONE HCL SR 10 MG TABLET PO SCH ×2 (09:05→22:14)
[2016-06-08] MEDS: LEVOFLOXACIN 500 MG TABLET PO SCH (09:06)
[2016-06-08] MEDS: METOPROLOL TARTRATE 25 MG TABLET PO SCH ×2 (09:06→22:12)
[2016-06-08] MEDS: FONDAPARINUX SODIUM INJ 7.5 MG/0.6 ML DISP.SYRIN SUBCUT SCH (09:06)
[2016-06-08 09:22] LABS: ANION GAP 8 (5-19); BLOOD UREA NITROGEN 13 mg/dL (7-20); CALCIUM 8.6 mg/dL (8.4-10.2); CARBON DIOXIDE 35 mmol/L (22-30); CHLORIDE 102 mmol/L (98-107); CREATININE RESULT 1.23 mg/dL (0.52-1.25); GLUCOSE 82 mg/dL (75-110); POTASSIUM 3.1 mmol/L (3.6-5.0); SODIUM 144.5 mmol/L (137-145)
[2016-06-08] MEDS ORDERED: GLYCERIN/WITCH HAZEL LEAF 1 EACH MED..PAD TP PRN (13:44)
--- NOTE | 2016-06-08 19:05 | PDOC PROGRESS REPORT ---
Subjective Progress Note for:: 06/08/16 Subjective:: feeling much better Physical Exam Vital Signs: Temp Pulse Resp BP Pulse Ox 98.6 F 78 19 126/82 H 97 06/08/16 15:42 06/08/16 15:42 06/08/16 15:42 06/08/16 15:42 06/08/16 15:42 Intake & Output 06/07/16 06/08/16 06/09/16 06:59 06:59 06:59 Intake Total 1336 1920 405 Output Total 100 Balance 1336 1920 305 Weight 62.9 kg 60.9 kg General appearance: PRESENT: no acute distress, cooperative, disheveled, obese Head exam: PRESENT: atraumatic, normocephalic Eye exam: PRESENT: conjunctiva pale, EOMI Mouth exam: PRESENT: dry mucosa, neck supple Neck exam: ABSENT: carotid bruit, JVD, lymphadenopathy, thyromegaly Respiratory exam: PRESENT: decreased breath sounds, rhonchi, symmetrical, unlabored, other - improved over last 24hrs GI/Abdominal exam: PRESENT: normal bowel sounds, soft. ABSENT: distended, guarding, mass, organolmegaly, rebound, tenderness Rectal exam: PRESENT: deferred Gentrourinary exam: PRESENT: indwelling catheter Extremities exam: PRESENT: other - s//p bka Neurological exam: PRESENT: alert, awake Psychiatric exam: PRESENT: normal mood Skin exam: PRESENT: dry, warm Results Laboratory Results: 06/06/16 06:45 06/08/16 07:45 06/08/16 07:45 Sodium 144.5 Potassium 3.1 L Chloride 102 Carbon Dioxide 35 H Anion Gap 8 BUN 13 Creatinine 1.23 Est GFR ( Amer) 54 L Est GFR (Non-Af Amer) 45 L Glucose 82 Calcium 8.6 05/30/16 05/30/16 05/31/16 04:00 04:00 05:45 Creatine Kinase 110 CK-MB (CK-2) 3.10 Troponin I 0.270 0.136 Impressions: Abdomen Ultrasound 05/30/16 00:00 IMPRESSION: No gallstones are identified. There is thickening of the gallbladder ko and there is pericholecystic fluid. This was present on the previous CT scan. The possibility of an acalculous cholecystitis should be considered. Other findings as noted above Abdomen/Pelvis CT 05/30/16 01:00 IMPRESSION: There is relative increased density within the gallbladder lumen which could represent biliary sludge. Pericholecystic fluid is identified in the possibility of cholecystitis should be considered. Abdominal ultrasound may be of value for confirmation if clinically warranted. Bibasilar densities representing small bilateral pleural effusions with associated airspace consolidation which could represent atelectatic changes or basilar infiltrates. Other findings as noted above Hepatobiliary Scan Nuclear Medicine 05/31/16 00:00 IMPRESSION: NO CYSTIC OR COMMON DUCT OBSTRUCTION. KUB X-Ray 06/02/16 08:01 IMPRESSION: Allowing for paucity of bowel gas, negative study. Limited as above. Chest X-Ray 06/05/16 06:00 IMPRESSION: Small bilateral pleural effusions with pulmonary vascular congestion. Question mild perihilar edema. Findings are similar compared to . Persistent dense consolidation left lower lobe atelectasis versus pneumonia. Assessment & Plan - Diagnosis (1) Abnormal CT scan, gallbladder Is this a current diagnosis for this admission?: No (2) Acute respiratory failure with hypoxia Is this a current diagnosis for this admission?: No (3) LLL pneumonia Qualifiers: Pneumonia type: due to unspecified organism Qualified Code(s): J18.1 - Lobar pneumonia, unspecified organism Is this a current diagnosis for this admission?: YesPlan: improving increased strength (4) Septic shock Is this a current diagnosis for this admission?: No
--- NOTE | 2016-06-08 19:48 | PDOC PROGRESS REPORT ---
Subjective Progress Note for:: 06/08/16 Subjective:: Patient seems to be doing better with gradual improvement. Pt is denying any chest arm or neck discomfort. Patient denying any PND, orthopnea. Patient denied any sustained palpitations, dizziness, syncope, near syncope. Patient denying any fever chills. Patient denying any other significant discomfort. Patient is maintaining sinus rhythm. Review of systems: Rest review of systems negative. Medications: Medications have been reviewed. Physical Exam Vital Signs: Temp Pulse Resp BP Pulse Ox 98.6 F 84 19 126/82 H 97 06/08/16 15:42 06/08/16 19:00 06/08/16 15:42 06/08/16 15:42 06/08/16 15:42 Intake & Output 06/07/16 06/08/16 06/09/16 06:59 06:59 06:59 Intake Total 1336 1920 405 Output Total 100 Balance 1336 1920 305 Weight 62.9 kg 60.9 kg Exam: GENERAL: well-nourished and in no acute distress. Alert and oriented x3 HEAD: Atraumatic, normocephalic. EYES: Pupils equal round and reactive to light, extraocular movements intact, sclera anicteric, conjunctiva are normal. ENT: TMs normal, nares patent, oropharynx clear without exudates. Moist mucous membranes. No oral ulcerations or bleeding gums noted NECK: supple without lymphadenopathy. Trachea is central. No cervical or axillary lymphadenopathy noted. Carotids are 2+, JVD WNL LUNGS: Respiration seems nonlabored, no significant accessory muscle action noted. Breath sounds clear to auscultation bilaterally and equal noted. No wheezes rales or rhonchi noted. No significant dullness noted on percussion. CHEST: Palpation of the chest wall shows no significant chest wall tenderness. No other significant abnormalities noted. 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 ABDOMEN: Soft, no significant tenderness appreciated, normoactive bowel sounds. No guarding, no rebound. No rigidity noted . No masses appreciated. EXTREMITIES: Pedal pulses are 1-2+, no calf tenderness noted. No clubbing or cyanosis.trace to 1+ pedal edema noted. 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 NEUROLOGICAL: Focused neurological exam showed no significant neurologic deficit. Normal speech, no focal weakness appreciated. PSYCH: Normal mood, normal affect. Judgment and insight within normal limits. SKIN: No significant ecchymosis, rash, ulcerations or signs of pruritus noted. MUSCULOSKELETAL EXAM: No significant joint swelling noted. Below-knee amputation on the left side. Results Laboratory Results: 06/06/16 06:45 06/08/16 07:45 06/08/16 07:45 Sodium 144.5 Potassium 3.1 L Chloride 102 Carbon Dioxide 35 H Anion Gap 8 BUN 13 Creatinine 1.23 Est GFR ( Amer) 54 L Est GFR (Non-Af Amer) 45 L Glucose 82 Calcium 8.6 05/30/16 05/30/16 05/31/16 04:00 04:00 05:45 Creatine Kinase 110 CK-MB (CK-2) 3.10 Troponin I 0.270 0.136 EKG Comments: Sinus rhythm, frequent APCs. Impressions: Abdomen Ultrasound 05/30/16 00:00 IMPRESSION: No gallstones are identified. There is thickening of the gallbladder ko and there is pericholecystic fluid. This was present on the previous CT scan. The possibility of an acalculous cholecystitis should be considered. Other findings as noted above Abdomen/Pelvis CT 05/30/16 01:00 IMPRESSION: There is relative increased density within the gallbladder lumen which could represent biliary sludge. Pericholecystic fluid is identified in the possibility of cholecystitis should be considered. Abdominal ultrasound may be of value for confirmation if clinically warranted. Bibasilar densities representing small bilateral pleural effusions with associated airspace consolidation which could represent atelectatic changes or basilar infiltrates. Other findings as noted above Hepatobiliary Scan Nuclear Medicine 05/31/16 00:00 IMPRESSION: NO CYSTIC OR COMMON DUCT OBSTRUCTION. KUB X-Ray 06/02/16 08:01 IMPRESSION: Allowing for paucity of bowel gas, negative study. Limited as above. Chest X-Ray 06/05/16 06:00 IMPRESSION: Small bilateral pleural effusions with pulmonary vascular congestion. Question mild perihilar edema. Findings are similar compared to . Persistent dense consolidation left lower lobe atelectasis versus pneumonia. Assessment & Plan - Diagnosis (1) Non-ST elevation myocardial infarction (NSTEMI), type 2 Is this a current diagnosis for this admission?: Yes (2) Diabetes mellitus Qualifiers: Diabetes mellitus type: type 2 Diabetes mellitus complication status: with unspecified complications Is this a current diagnosis for this admission?: Yes (3) Pneumonia Qualifiers: Pneumonia type: due to unspecified organism Laterality: bilateral Lung location: unspecified part of lung Qualified Code(s): J18.9 - Pneumonia, unspecified organism Is this a current diagnosis for this admission?: Yes (4) HTN (hypertension) Qualifiers: Hypertension type: essential hypertension Qualified Code(s): I10 - Essential (primary) hypertension Is this a current diagnosis for this admission?: Yes (5) Hypercoagulable state Is this a current diagnosis for this admission?: Yes - Notes Notes: Non-STEMI: Patient does have elevated troponin I and some ST segment depression. Patient has significant cardiac risk factors. Patient probably has underlying CAD. Will start patient on statins, aspirin, we will schedule patient for a nuclear stress test. Patient prefers to have this performed as an inpatient. Diabetes: Recommend good control of blood sugar. However should avoid any hypoglycemia. Patient being expertly managed by primary care MLeona Hypertension: Reasonably well controlled. Blood pressure goal in this patient is 135/85 or less. This was discussed with the patient. Currently blood pressure under reasonable control. Better medication for this patient are GALA inhibitor/ARB/beta lorraine etc. discussed side effects of uncontrolled hypertension and also severe hypotension. Hypercoagulable state: Patient being followed by oncologist. Continue Arixtra therapy. Patient may be considered for chronic Coumadin but will leave decision to oncologist. - Time Time with patient: Greater than 35 minutes - CODE STATUS was discussed, patient remains full code. Surrogate decision-maker unchanged. Multiple medical problems were addressed.More than 50% of the time spent coordinating care, discussing management plans with involved caregivers. Management plans discussed with involved personnels. Medical decision making was of moderate to high complexity, patient's has multiple severe comorbidities. Medications reviewed and adjusted accordingly: Yes
[2016-06-08] MEDS ORDERED: ATORVASTATIN CALCIUM 10 MG TABLET PO SCH (22:00)
[2016-06-08] MEDS: ASPIRIN 81 MG TABLET, ENT COATED PO SCH (22:15)
[2016-06-09] MEDS: OXYCODONE HCL IR 5 MG TABLET PO PRN ×3 (02:40→18:18)
[2016-06-09] MEDS: ONDANSETRON HCL INJ/PF 4 MG/2 ML SDV IV PRN ×2 (04:49→22:00)
[2016-06-09 06:12] LABS: ANION GAP 6 (5-19); BLOOD UREA NITROGEN 13 mg/dL (7-20); CARBON DIOXIDE 35 mmol/L (22-30); CHLORIDE 102 mmol/L (98-107); CREATININE RESULT 1.19 mg/dL (0.52-1.25); GLUCOSE 81 mg/dL (75-110); SODIUM 143.3 mmol/L (137-145)
[2016-06-09 06:17] LABS: POTASSIUM 2.9 mmol/L (3.6-5.0)
[2016-06-09 06:29] LABS: ADD ON TESTING BLD IN LAB ACKNOWLEDGE
[2016-06-09] MEDS ORDERED: POTASSI CL 20 MEQ/50 ML RIDER 20 MEQ/50 ML RTUPB IV SCH (06:30)
[2016-06-09 06:39] LABS: MAGNESIUM 1.9 mg/dL (1.6-2.3)
[2016-06-09] MEDS: IPRATROPIUM/ALBUTEROL 0.5-2.5 MG/3 ML AMPUL NEB SCH ×3 (08:38→20:28)
[2016-06-09] MEDS: OXYCODONE HCL SR 10 MG TABLET PO SCH ×2 (11:15→22:00)
[2016-06-09] MEDS: METOPROLOL TARTRATE 25 MG TABLET PO SCH ×2 (11:16→21:58)
[2016-06-09] MEDS: FONDAPARINUX SODIUM INJ 7.5 MG/0.6 ML DISP.SYRIN SUBCUT SCH (11:17)
[2016-06-09] MEDS: LEVOFLOXACIN 500 MG TABLET PO SCH (11:17)
[2016-06-09] MEDS: PROCHLORPERAZINE EDISYLATE INJ 10 MG/2 ML VIAL IV PRN (11:22)
[2016-06-09] MEDS: POTASSIUM CHLORIDE 20 MEQ/50 ML RTU IV SCH ×3 (13:20→18:18)
--- NOTE | 2016-06-09 13:35 | DRAGON STRESS TEST REPORT ---
INTRAVENOUS LEXISCAN CARDIOLITE STRESS TEST USING SINGLE PHOTON EMMISION COMPUTERIZED TOMOGRAPHIC. DATE OF PROCEDURE: June 09, 2016 INDICATION : Non-STEMI, shortness of breath CARDIAC RISK FACTORS: Diabetes, hypertension, dyslipidemia RESTING EKG: Sinus rhythm, LVH with secondary ST-T wave changes STRESS EKG: No significant changes noted with LexiScan bolus REASON FOR TERMINATION: Protocol. PROCEDURE REPORT: Baseline heart rate 74 beats per minute with blood pressure of and 147/81. Patient had no significant complaints. Heart rate at 2 minutes post bolus 111 with a blood pressure of 142/89. 3 minutes post bolus heart rate 99 with blood pressure of 142/77. No significant EKG changes were noted. Patient had no significant complaints during the procedure or postprocedure. Patient injected with Aminophyllin 75 mg at 3 minutes or later after Lexiscan bolus. CONCLUSIONS: Normal EKG and hemodynamic response to IV LexiScan. NUCLEAR DATA: At rest the patient was given 10.18 millicuries of technetium 99 sestamibi injected intravenously. As per protocol rest gated SPECT images were obtained. Subsequently the patient was given intravenous LexiScan at a dose of 0.4 mg in 5 mL intravenously, followed by flush with normal saline. Subsequently the stress dose of 30.4 millicuries of technetium 99 sestamibi was injected intravenously. As per protocol stress gated images were obtained. NUCLEAR INTERPRETATION: Both raw and processed data were used for interpretation. Visual, qualitative, computer-generated quantitative data was used. There was good myocardial uptake of technetium compound. Motion artifact and soft tissue attenuations were noted. Increased visceral uptake was noted. No definitive areas of transient perfusion defect noted. No definitive areas of fixed perfusion defect or scars noted. EKG gated imaging showed LV EF at 51 %, rest and stress gated EF similar visually. T. I D. ratio was 1.07. Lung heart ratio noted to be within normal limits 0.40. No significant extracardiac and abnormal radiotracer activities were noted. RV free wall uptake was noted to be normal. IMPRESSION: Also refer to comments under nuclear interpretation. Also test results needs to be interpreted in the context of pretest probability. 1. There is no definitive scintigraphic evidence of LexiScan induced myocardial ischemia. 2. There is no definitive scintigraphic evidence of myocardial infarction/scar. 3. EKG gated imaging shows left ejection fraction of approximately 51 %. 4. Clinical correlation requested as occasionally single vessel disease or balanced ischemia could be missed. In approximately 10% of the cases Lexiscan may not cause adequate vasodilatory stress. RECOMMENDATIONS: Aggressive risk factor modification, medical therapy. Clinical correlation with echocardiogram derived ejection fraction. Inability to exercise by itself can lead to increased cardiovascular event risks. Consider cardiology consultation and or follow-up if clinically indicated. I AM AVAILABLE FOR CARDIOLOGY CONSULTATION AND FOLLOWUP IF REQUESTED BY PMD Jhon Ledezma M.D., LAURE[employer] Title Inspector flour blender, Board certified in cardiovascular diseases, Nuclear cardiology, Echocardiography Cardiac CT and cardiac MRI Ph. [phone] [facility]
[2016-06-09] MEDS ORDERED: AMINOPHYLLINE INJ/PF 250 MG/10 ML SDV IV ONE (15:39)
[2016-06-09] MEDS ORDERED: REGADENOSON INJ 0.4 MG/5 ML DISP.SYRIN IV ONE (15:39)
--- NOTE | 2016-06-09 18:48 | PDOC PROGRESS REPORT ---
Subjective Progress Note for:: 06/09/16 Subjective:: Patient not too long back from various tests off the floor. She states that she is very happy that her stress tests were negative and that the urology teacher just left her room. She is relieved as this worried her throughout the night. Her fifth pain has improved today. Otherwise she has no complaints. In my discussion with her plans are hopefully to return home with some home health at the time of discharge Physical Exam Vital Signs: Temp Pulse Resp BP Pulse Ox 98.7 F 75 20 119/79 95 06/09/16 15:43 06/09/16 15:43 06/09/16 15:43 06/09/16 15:43 06/09/16 15:43 Intake & Output 06/08/16 06/09/16 06/10/16 06:59 06:59 06:59 Intake Total 1920 405 Output Total 100 Balance 1920 305 Weight 60.9 kg 60.8 kg PHYSICAL EXAM: GENERAL: This is a well-developed well-nourished white female resting in no acute distress. HEART: Regular rate and rhythm. No murmurs rubs or gallops. LUNGS: Clear to auscultation bilaterally with equal rise and fall of the chest. Productive cough noted at the bedside ABDOMEN: Soft, nontender, slightly distended today with normoactive bowel sounds EXTREMITIES: No clubbing cyanosis or edema. Left BKA NEURO: Awake, alert, oriented x3. Cranial nerves II through XII grossly intact. PSYCH: Normal affect. LINES: Right IJ dry and intact : No Ryenolds present Results Laboratory Results: 06/06/16 06:45 06/09/16 04:00 06/09/16 06/09/16 04:00 04:00 Sodium 143.3 Potassium 2.9 L* Chloride 102 Carbon Dioxide 35 H Anion Gap 6 BUN 13 Creatinine 1.19 Est GFR ( Amer) 56 L Est GFR (Non-Af Amer) 47 L Glucose 81 Calcium 9.0 Magnesium 1.9 05/30/16 05/30/16 05/31/16 04:00 04:00 05:45 Creatine Kinase 110 CK-MB (CK-2) 3.10 Troponin I 0.270 0.136 Impressions: Abdomen Ultrasound 05/30/16 00:00 IMPRESSION: No gallstones are identified. There is thickening of the gallbladder ko and there is pericholecystic fluid. This was present on the previous CT scan. The possibility of an acalculous cholecystitis should be considered. Other findings as noted above Abdomen/Pelvis CT 05/30/16 01:00 IMPRESSION: There is relative increased density within the gallbladder lumen which could represent biliary sludge. Pericholecystic fluid is identified in the possibility of cholecystitis should be considered. Abdominal ultrasound may be of value for confirmation if clinically warranted. Bibasilar densities representing small bilateral pleural effusions with associated airspace consolidation which could represent atelectatic changes or basilar infiltrates. Other findings as noted above Hepatobiliary Scan Nuclear Medicine 05/31/16 00:00 IMPRESSION: NO CYSTIC OR COMMON DUCT OBSTRUCTION. KUB X-Ray 06/02/16 08:01 IMPRESSION: Allowing for paucity of bowel gas, negative study. Limited as above. Chest X-Ray 06/05/16 06:00 IMPRESSION: Small bilateral pleural effusions with pulmonary vascular congestion. Question mild perihilar edema. Findings are similar compared to . Persistent dense consolidation left lower lobe atelectasis versus pneumonia. Assessment & Plan - Diagnosis (1) Acute acalculous cholecystitis Is this a current diagnosis for this admission?: YesPlan: Stable. Continue Levaquin (2) Acute renal failure Qualifiers: Acute renal failure type: unspecified Qualified Code(s): N17.9 - Acute kidney failure, unspecified Is this a current diagnosis for this admission?: YesPlan: Improved (3) Acute respiratory failure Qualifiers: Respiratory failure complication: unspecified whether with hypoxia or hypercapnia Qualified Code(s): J96.00 - Acute respiratory failure, unspecified whether with hypoxia or hypercapnia Is this a current diagnosis for this admission?: YesPlan: Resolve (4) LLL pneumonia Qualifiers: Pneumonia type: due to unspecified organism Qualified Code(s): J18.1 - Lobar pneumonia, unspecified organism Is this a current diagnosis for this admission?: Yes (5) Non-ST elevation myocardial infarction (NSTEMI), type 2 Is this a current diagnosis for this admission?: YesPlan: Stable continue current meds. Stress test negative (6) Phantom pain Is this a current diagnosis for this admission?: YesPlan: Continue current pain medication. Pain is improved today - Time Time Spent with patient: 15-24 minutes - Inpatient Certification Medical Necessity: Need Close Monitoring Due to Risk of Patient Decompensation
--- NOTE | 2016-06-09 20:08 | PDOC PROGRESS REPORT ---
Subjective Progress Note for:: 06/09/16 Subjective:: Patient seems to be doing better with gradual improvement. Pt is denying any chest arm or neck discomfort. Patient denying any PND, orthopnea. Patient denied any sustained palpitations, dizziness, syncope, near syncope. Patient denying any fever chills. Patient denying any other significant discomfort. Patient is maintaining sinus rhythm. Nuclear stress test procedure was explained to the patient in detail. Risks benefits were discussed and informed consent was obtained. Alternatives were discussed. Patient informed that based on risk factors, physical exam, lab data findings and symptoms there is at least intermediate probability of underlying CAD. Nuclear stress test procedure was therefore scheduled. Review of systems: Rest review of systems negative. Medications: Medications have been reviewed. Physical Exam Vital Signs: Temp Pulse Resp BP Pulse Ox 98.7 F 75 20 119/79 95 06/09/16 15:43 06/09/16 15:43 06/09/16 15:43 06/09/16 15:43 06/09/16 15:43 Intake & Output 06/08/16 06/09/16 06/10/16 06:59 06:59 06:59 Intake Total 1920 405 441 Output Total 100 Balance 1920 305 441 Weight 60.9 kg 60.8 kg Exam: GENERAL: well-nourished and in no acute distress. Alert and oriented x3 HEAD: Atraumatic, normocephalic. EYES: Pupils equal round and reactive to light, extraocular movements intact, sclera anicteric, conjunctiva are normal. ENT: TMs normal, nares patent, oropharynx clear without exudates. Moist mucous membranes. No oral ulcerations or bleeding gums noted NECK: supple without lymphadenopathy. Trachea is central. No cervical or axillary lymphadenopathy noted. Carotids are 2+, JVD WNL LUNGS: Respiration seems nonlabored, no significant accessory muscle action noted. Breath sounds clear to auscultation bilaterally and equal noted. No wheezes rales or rhonchi noted. No significant dullness noted on percussion. CHEST: Palpation of the chest wall shows no significant chest wall tenderness. No other significant abnormalities noted. 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 ABDOMEN: Soft, no significant tenderness appreciated, normoactive bowel sounds. No guarding, no rebound. No rigidity noted . No masses appreciated. EXTREMITIES: Pedal pulses are 1-2+, no calf tenderness noted. No clubbing or cyanosis.trace pedal edema noted. Patient is status post amputation below knee left side. NEUROLOGICAL: Focused neurological exam showed no significant neurologic deficit. Normal speech, no focal weakness appreciated. PSYCH: Normal mood, normal affect. Judgment and insight within normal limits. SKIN: No significant ecchymosis, rash, ulcerations or signs of pruritus noted. MUSCULOSKELETAL EXAM: No significant joint swelling noted. Results Laboratory Results: 06/06/16 06:45 06/09/16 04:00 06/09/16 06/09/16 04:00 04:00 Sodium 143.3 Potassium 2.9 L* Chloride 102 Carbon Dioxide 35 H Anion Gap 6 BUN 13 Creatinine 1.19 Est GFR ( Amer) 56 L Est GFR (Non-Af Amer) 47 L Glucose 81 Calcium 9.0 Magnesium 1.9 05/30/16 05/30/16 05/31/16 04:00 04:00 05:45 Creatine Kinase 110 CK-MB (CK-2) 3.10 Troponin I 0.270 0.136 Impressions: Abdomen Ultrasound 05/30/16 00:00 IMPRESSION: No gallstones are identified. There is thickening of the gallbladder ko and there is pericholecystic fluid. This was present on the previous CT scan. The possibility of an acalculous cholecystitis should be considered. Other findings as noted above Abdomen/Pelvis CT 05/30/16 01:00 IMPRESSION: There is relative increased density within the gallbladder lumen which could represent biliary sludge. Pericholecystic fluid is identified in the possibility of cholecystitis should be considered. Abdominal ultrasound may be of value for confirmation if clinically warranted. Bibasilar densities representing small bilateral pleural effusions with associated airspace consolidation which could represent atelectatic changes or basilar infiltrates. Other findings as noted above Hepatobiliary Scan Nuclear Medicine 05/31/16 00:00 IMPRESSION: NO CYSTIC OR COMMON DUCT OBSTRUCTION. KUB X-Ray 06/02/16 08:01 IMPRESSION: Allowing for paucity of bowel gas, negative study. Limited as above. Chest X-Ray 06/05/16 06:00 IMPRESSION: Small bilateral pleural effusions with pulmonary vascular congestion. Question mild perihilar edema. Findings are similar compared to . Persistent dense consolidation left lower lobe atelectasis versus pneumonia. Assessment & Plan - Diagnosis (1) Non-ST elevation myocardial infarction (NSTEMI), type 2 Is this a current diagnosis for this admission?: Yes (2) Diabetes mellitus Qualifiers: Diabetes mellitus type: type 2 Diabetes mellitus complication status: with unspecified complications Is this a current diagnosis for this admission?: Yes (3) Pneumonia Qualifiers: Pneumonia type: due to unspecified organism Laterality: bilateral Lung location: unspecified part of lung Qualified Code(s): J18.9 - Pneumonia, unspecified organism Is this a current diagnosis for this admission?: Yes (4) HTN (hypertension) Qualifiers: Hypertension type: essential hypertension Qualified Code(s): I10 - Essential (primary) hypertension Is this a current diagnosis for this admission?: Yes (5) Hypercoagulable state Is this a current diagnosis for this admission?: Yes - Notes Notes: Non-STEMI: This was most likely related to metabolic problems. Patient did have a nuclear stress test which was noted to be negative for any significant ischemia. Results were discussed with the patient. Patient being advise risk factor modification and medical therapy. Diabetes: Being managed by hospitalist. Pneumonia: Improving. Hypertension: Stable. Hypercoagulable state: Patient on Arixtra, I wonder if other options are available which can be taken orally. Will discuss with Dr. Daley. Patient was seen multiple times. Total time exceeds 40 minutes. In the morning nuclear stress test procedure, risks benefits, alternatives were discussed. Patient seen during the stress test. Patient also seen after stress test when results were discussed with the patient in detail. Patient's questions were answered. Nuclear stress test results were discussed with the patient. Patient was informed that no definitive evidence of pharmacologic stress- induced ischemia noted. No definite fixed defects were noted. Patient informed that occasionally significant single vessel disease or balanced ischemia could be missed. However based on the current study results, would recommend aggressive risk factor modification and medical therapy. It may also be worthwhile to consider evaluation or empiric management of other causes of chest pain. Should no other cause be found and if persistent in having chest pain, then cardiac catheterization should be considered. Right now, recommendations are for aggressive risk factor modification and medical management. - Time Time with patient: Greater than 35 minutes - CODE STATUS was discussed, patient remains full code. Surrogate decision-maker unchanged. Multiple medical problems were addressed.More than 50% of the time spent coordinating care, discussing management plans with involved caregivers. Management plans discussed with involved personnels. Medical decision making was of moderate to high complexity, patient's has multiple severe comorbidities. Medications reviewed and adjusted accordingly: Yes
[2016-06-09] MEDS: ASPIRIN 81 MG TABLET, ENT COATED PO SCH (21:59)
[2016-06-09] MEDS: ATORVASTATIN CALCIUM 20 MG TABLET PO SCH (21:59)
[2016-06-10] MEDS: OXYCODONE HCL IR 5 MG TABLET PO PRN ×3 (02:42→19:56)
[2016-06-10 06:54] LABS: ANION GAP 9 (5-19); BLOOD UREA NITROGEN 9 mg/dL (7-20); CALCIUM 8.9 mg/dL (8.4-10.2); CARBON DIOXIDE 33 mmol/L (22-30); CHLORIDE 101 mmol/L (98-107); CREATININE RESULT 1.09 mg/dL (0.52-1.25); GLUCOSE 78 mg/dL (75-110); POTASSIUM 3.6 mmol/L (3.6-5.0); SODIUM 142.5 mmol/L (137-145)
[2016-06-10] MEDS: IPRATROPIUM/ALBUTEROL 0.5-2.5 MG/3 ML AMPUL NEB SCH ×3 (08:57→20:25)
[2016-06-10] MEDS: OXYCODONE HCL SR 10 MG TABLET PO SCH ×2 (09:58→23:10)
[2016-06-10] MEDS: ONDANSETRON HCL INJ/PF 4 MG/2 ML SDV IV PRN (09:58)
[2016-06-10] MEDS: METOPROLOL TARTRATE 25 MG TABLET PO SCH ×2 (09:58→23:09)
[2016-06-10] MEDS: FONDAPARINUX SODIUM INJ 7.5 MG/0.6 ML DISP.SYRIN SUBCUT SCH (10:01)
[2016-06-10] MEDS: LEVOFLOXACIN 500 MG TABLET PO SCH (10:01)
[2016-06-10] MEDS: BUTALB/ACETAMINOPHEN/CAFFEINE 1 TAB EACH PO PRN ×2 (11:21→15:24)
--- NOTE | 2016-06-10 11:59 | PDOC PROGRESS REPORT ---
Subjective Progress Note for:: 06/10/16 Subjective:: Patient seems to be doing better with gradual improvement. Pt is denying any chest arm or neck discomfort. Patient denying any PND, orthopnea. Patient denied any sustained palpitations, dizziness, syncope, near syncope. Patient denying any fever chills. Patient denying any other significant discomfort. Patient doing well from cardiac standpoint but now describes having migraine headaches. Patient is maintaining sinus rhythm. Nuclear stress test procedure results were reviewed with the patient. Review of systems: Rest review of systems negative. Medications: Medications have been reviewed. Physical Exam Vital Signs: Temp Pulse Resp BP Pulse Ox 97.4 F 82 16 129/76 H 94 06/10/16 07:58 06/10/16 08:57 06/10/16 08:57 06/10/16 07:58 06/10/16 08:57 Intake & Output 06/09/16 06/10/16 06/11/16 06:59 06:59 06:59 Intake Total 405 991 Output Total 100 Balance 305 991 Weight 60.8 kg 60.4 kg Exam: GENERAL: well-nourished and in no acute distress. Alert and oriented x3 HEAD: Atraumatic, normocephalic. EYES: Pupils equal round and reactive to light, extraocular movements intact, sclera anicteric, conjunctiva are normal. ENT: TMs normal, nares patent, oropharynx clear without exudates. Moist mucous membranes. No oral ulcerations or bleeding gums noted NECK: supple without lymphadenopathy. Trachea is central. No cervical or axillary lymphadenopathy noted. Carotids are 2+, JVD WNL LUNGS: Respiration seems nonlabored, no significant accessory muscle action noted. Breath sounds clear to auscultation bilaterally and equal noted. No wheezes rales or rhonchi noted. No significant dullness noted on percussion. CHEST: Palpation of the chest wall shows no significant chest wall tenderness. No other significant abnormalities noted. 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 ABDOMEN: Soft, no significant tenderness appreciated, normoactive bowel sounds. No guarding, no rebound. No rigidity noted . No masses appreciated. EXTREMITIES: Pedal pulses are 1-2+, no calf tenderness noted. No clubbing or cyanosis.negative pedal edema noted. Patient is status post below-knee amputation on the left side. NEUROLOGICAL: Focused neurological exam showed no significant neurologic deficit. Normal speech, no focal weakness appreciated. PSYCH: Normal mood, normal affect. Judgment and insight within normal limits. SKIN: No significant ecchymosis, rash, ulcerations or signs of pruritus noted. MUSCULOSKELETAL EXAM: No significant joint swelling noted. Results Laboratory Results: 06/06/16 06:45 06/10/16 06:25 06/10/16 06:25 Sodium 142.5 Potassium 3.6 Chloride 101 Carbon Dioxide 33 H Anion Gap 9 BUN 9 Creatinine 1.09 Est GFR ( Amer) > 60 Est GFR (Non-Af Amer) 52 L Glucose 78 Calcium 8.9 05/30/16 05/30/16 05/31/16 04:00 04:00 05:45 Creatine Kinase 110 CK-MB (CK-2) 3.10 Troponin I 0.270 0.136 Impressions: Abdomen Ultrasound 05/30/16 00:00 IMPRESSION: No gallstones are identified. There is thickening of the gallbladder ko and there is pericholecystic fluid. This was present on the previous CT scan. The possibility of an acalculous cholecystitis should be considered. Other findings as noted above Abdomen/Pelvis CT 05/30/16 01:00 IMPRESSION: There is relative increased density within the gallbladder lumen which could represent biliary sludge. Pericholecystic fluid is identified in the possibility of cholecystitis should be considered. Abdominal ultrasound may be of value for confirmation if clinically warranted. Bibasilar densities representing small bilateral pleural effusions with associated airspace consolidation which could represent atelectatic changes or basilar infiltrates. Other findings as noted above Hepatobiliary Scan Nuclear Medicine 05/31/16 00:00 IMPRESSION: NO CYSTIC OR COMMON DUCT OBSTRUCTION. KUB X-Ray 06/02/16 08:01 IMPRESSION: Allowing for paucity of bowel gas, negative study. Limited as above. Chest X-Ray 06/05/16 06:00 IMPRESSION: Small bilateral pleural effusions with pulmonary vascular congestion. Question mild perihilar edema. Findings are similar compared to . Persistent dense consolidation left lower lobe atelectasis versus pneumonia. Assessment & Plan - Diagnosis (1) Non-ST elevation myocardial infarction (NSTEMI), type 2 Is this a current diagnosis for this admission?: Yes (2) Diabetes mellitus Qualifiers: Diabetes mellitus type: type 2 Diabetes mellitus complication status: with unspecified complications Is this a current diagnosis for this admission?: Yes (3) Pneumonia Qualifiers: Pneumonia type: due to unspecified organism Laterality: bilateral Lung location: unspecified part of lung Qualified Code(s): J18.9 - Pneumonia, unspecified organism Is this a current diagnosis for this admission?: Yes (4) HTN (hypertension) Qualifiers: Hypertension type: essential hypertension Qualified Code(s): I10 - Essential (primary) hypertension Is this a current diagnosis for this admission?: Yes (5) Hypercoagulable state Is this a current diagnosis for this admission?: Yes - Notes Notes: Non-STEMI: [place] to be mostly related to metabolic reasons. Nuclear stress test was negative for significant ischemia. These were explained to the patient. Recommend statins, GALA inhibitor, beta lorraine therapy to reduce future cardiovascular events. Diabetes: Currently being expertly managed by hospitalist. Pneumonia: This is improved. Hypertension: Stable Hypercoagulable state: Being managed by sash assembler. - Time Time with patient: 15-25 minutes - CODE STATUS was discussed, patient remains full code. Surrogate decision-maker unchanged. Multiple medical problems were addressed.More than 50% of the time spent coordinating care, discussing management plans with involved caregivers. Management plans discussed with involved personnels. Medical decision making was of moderate to high complexity , patient's has multiple severe comorbidities. Medications reviewed and adjusted accordingly: Yes
[2016-06-10] MEDS ORDERED: LISINOPRIL 5 MG TABLET PO ONE (12:45)
--- NOTE | 2016-06-10 14:39 | PDOC PROGRESS REPORT ---
Subjective Progress Note for:: 06/10/16 Subjective:: Patient seen this morning at 1145. She was just getting over a migraine headache and was feeling much better and waiting for lunch. She has no other complaints than the headache. No chest pain or shortness of breath. Physical Exam Vital Signs: Temp Pulse Resp BP Pulse Ox 98.6 F 82 19 128/64 H 91 L 06/10/16 11:17 06/10/16 11:17 06/10/16 11:17 06/10/16 11:17 06/10/16 11:17 Intake & Output 06/09/16 06/10/16 06/11/16 06:59 06:59 06:59 Intake Total 405 991 362 Output Total 100 100 Balance 305 991 262 Weight 60.8 kg 60.4 kg PHYSICAL EXAM: GENERAL: This is a well-developed well-nourished white female resting in no acute distress. HEART: Regular rate and rhythm. No murmurs rubs or gallops. LUNGS: Clear to auscultation bilaterally with equal rise and fall of the chest. Productive cough noted at the bedside ABDOMEN: Soft, nontender, slightly distended today with normoactive bowel sounds EXTREMITIES: No clubbing cyanosis or edema. Left BKA NEURO: Awake, alert, oriented x3. Cranial nerves II through XII grossly intact. PSYCH: Normal affect. LINES: Right IJ clean dry and intact. : No Reynolds present Results Laboratory Results: 06/06/16 06:45 06/10/16 06:25 06/10/16 06:25 Sodium 142.5 Potassium 3.6 Chloride 101 Carbon Dioxide 33 H Anion Gap 9 BUN 9 Creatinine 1.09 Est GFR ( Amer) > 60 Est GFR (Non-Af Amer) 52 L Glucose 78 Calcium 8.9 05/30/16 05/30/16 05/31/16 04:00 04:00 05:45 Creatine Kinase 110 CK-MB (CK-2) 3.10 Troponin I 0.270 0.136 Impressions: Abdomen Ultrasound 05/30/16 00:00 IMPRESSION: No gallstones are identified. There is thickening of the gallbladder ko and there is pericholecystic fluid. This was present on the previous CT scan. The possibility of an acalculous cholecystitis should be considered. Other findings as noted above Abdomen/Pelvis CT 05/30/16 01:00 IMPRESSION: There is relative increased density within the gallbladder lumen which could represent biliary sludge. Pericholecystic fluid is identified in the possibility of cholecystitis should be considered. Abdominal ultrasound may be of value for confirmation if clinically warranted. Bibasilar densities representing small bilateral pleural effusions with associated airspace consolidation which could represent atelectatic changes or basilar infiltrates. Other findings as noted above Hepatobiliary Scan Nuclear Medicine 05/31/16 00:00 IMPRESSION: NO CYSTIC OR COMMON DUCT OBSTRUCTION. KUB X-Ray 06/02/16 08:01 IMPRESSION: Allowing for paucity of bowel gas, negative study. Limited as above. Chest X-Ray 06/05/16 06:00 IMPRESSION: Small bilateral pleural effusions with pulmonary vascular congestion. Question mild perihilar edema. Findings are similar compared to . Persistent dense consolidation left lower lobe atelectasis versus pneumonia. Assessment & Plan - Diagnosis (1) Acute acalculous cholecystitis Is this a current diagnosis for this admission?: YesPlan: Stable. Continue Levaquin (2) Acute renal failure Qualifiers: Acute renal failure type: unspecified Qualified Code(s): N17.9 - Acute kidney failure, unspecified Is this a current diagnosis for this admission?: YesPlan: Improved (3) Acute respiratory failure Qualifiers: Respiratory failure complication: unspecified whether with hypoxia or hypercapnia Qualified Code(s): J96.00 - Acute respiratory failure, unspecified whether with hypoxia or hypercapnia Is this a current diagnosis for this admission?: YesPlan: Resolved (4) LLL pneumonia Qualifiers: Pneumonia type: due to unspecified organism Qualified Code(s): J18.1 - Lobar pneumonia, unspecified organism Is this a current diagnosis for this admission?: YesPlan: Continue Levaquin (5) Non-ST elevation myocardial infarction (NSTEMI), type 2 Is this a current diagnosis for this admission?: YesPlan: Stable continue current meds. Stress test negative (6) Phantom pain Is this a current diagnosis for this admission?: YesPlan: Continue current pain medication. Pain is improved today - Time Time Spent with patient: 15-24 minutes - Inpatient Certification Medical Necessity: Need Close Monitoring Due to Risk of Patient Decompensation
[2016-06-10] MEDS: PROCHLORPERAZINE EDISYLATE INJ 10 MG/2 ML VIAL IV PRN (15:22)
[2016-06-10] MEDS: ASPIRIN 81 MG TABLET, ENT COATED PO SCH (23:09)
[2016-06-10] MEDS: ATORVASTATIN CALCIUM 20 MG TABLET PO SCH (23:10)
[2016-06-11 06:29] LABS: ANION GAP 8 (5-19); BLOOD UREA NITROGEN 11 mg/dL (7-20); CALCIUM 9.1 mg/dL (8.4-10.2); CARBON DIOXIDE 35 mmol/L (22-30); CHLORIDE 99 mmol/L (98-107); CREATININE RESULT 1.31 mg/dL (0.52-1.25); GLUCOSE 79 mg/dL (75-110); POTASSIUM 3.5 mmol/L (3.6-5.0)
[2016-06-11] MEDS: BUTALB/ACETAMINOPHEN/CAFFEINE 1 TAB EACH PO PRN (07:02)
[2016-06-11] MEDS: IPRATROPIUM/ALBUTEROL 0.5-2.5 MG/3 ML AMPUL NEB SCH ×3 (08:13→19:22)
[2016-06-11] MEDS: PROCHLORPERAZINE EDISYLATE INJ 10 MG/2 ML VIAL IV PRN ×2 (08:43→17:19)
[2016-06-11] MEDS ORDERED: LISINOPRIL 5 MG TABLET PO SCH (10:00)
[2016-06-11] MEDS: LEVOFLOXACIN 500 MG TABLET PO SCH (10:56)
[2016-06-11] MEDS: METOPROLOL TARTRATE 25 MG TABLET PO SCH ×2 (10:56→22:11)
[2016-06-11] MEDS: OXYCODONE HCL SR 10 MG TABLET PO SCH ×2 (10:56→22:11)
[2016-06-11] MEDS: FONDAPARINUX SODIUM INJ 7.5 MG/0.6 ML DISP.SYRIN SUBCUT SCH (10:57)
[2016-06-11] MEDS: LISINOPRIL 5 MG TABLET PO SCH (10:57)
--- NOTE | 2016-06-11 12:08 | PDOC PROGRESS REPORT ---
Subjective Progress Note for:: 06/11/16 Subjective:: Patient seen this morning at 1145. She currently has few complaints. She does note that her belly feels distended and is slightly more uncomfortable than it had been. She managed to get some sleep last night. Physical Exam Vital Signs: Temp Pulse Resp BP Pulse Ox 98.4 F 77 16 111/57 L 91 L 06/11/16 07:22 06/11/16 08:13 06/11/16 08:13 06/11/16 07:22 06/11/16 08:13 Intake & Output 06/10/16 06/11/16 06/12/16 06:59 06:59 06:59 Intake Total 991 1245 Output Total 300 Balance 991 945 Weight 60.4 kg 60.6 kg PHYSICAL EXAM: GENERAL: This is a well-developed well-nourished white female resting in no acute distress. HEART: Regular rate and rhythm. No murmurs rubs or gallops. LUNGS: Clear to auscultation bilaterally with equal rise and fall of the chest. Productive cough noted at the bedside ABDOMEN: Soft, nontender, distended today with normoactive bowel sounds EXTREMITIES: No clubbing cyanosis or edema. Left BKA NEURO: Awake, alert, oriented x3. Cranial nerves II through XII grossly intact. PSYCH: Normal affect. LINES: Right IJ clean dry and intact. : No Reynolds present Results Laboratory Results: 06/06/16 06:45 06/11/16 05:45 06/11/16 05:45 Sodium 142.0 Potassium 3.5 L Chloride 99 Carbon Dioxide 35 H Anion Gap 8 BUN 11 Creatinine 1.31 H Est GFR ( Amer) 50 L Est GFR (Non-Af Amer) 42 L Glucose 79 Calcium 9.1 05/30/16 05/30/16 05/31/16 04:00 04:00 05:45 Creatine Kinase 110 CK-MB (CK-2) 3.10 Troponin I 0.270 0.136 Impressions: Abdomen Ultrasound 05/30/16 00:00 IMPRESSION: No gallstones are identified. There is thickening of the gallbladder ko and there is pericholecystic fluid. This was present on the previous CT scan. The possibility of an acalculous cholecystitis should be considered. Other findings as noted above Abdomen/Pelvis CT 05/30/16 01:00 IMPRESSION: There is relative increased density within the gallbladder lumen which could represent biliary sludge. Pericholecystic fluid is identified in the possibility of cholecystitis should be considered. Abdominal ultrasound may be of value for confirmation if clinically warranted. Bibasilar densities representing small bilateral pleural effusions with associated airspace consolidation which could represent atelectatic changes or basilar infiltrates. Other findings as noted above Hepatobiliary Scan Nuclear Medicine 05/31/16 00:00 IMPRESSION: NO CYSTIC OR COMMON DUCT OBSTRUCTION. KUB X-Ray 06/02/16 08:01 IMPRESSION: Allowing for paucity of bowel gas, negative study. Limited as above. Chest X-Ray 06/05/16 06:00 IMPRESSION: Small bilateral pleural effusions with pulmonary vascular congestion. Question mild perihilar edema. Findings are similar compared to . Persistent dense consolidation left lower lobe atelectasis versus pneumonia. Assessment & Plan - Diagnosis (1) Acute acalculous cholecystitis Plan: Stable. Continue Levaquin (2) Acute renal failure Qualifiers: Acute renal failure type: unspecified Qualified Code(s): N17.9 - Acute kidney failure, unspecified Plan: Improved (3) Acute respiratory failure Qualifiers: Respiratory failure complication: unspecified whether with hypoxia or hypercapnia Qualified Code(s): J96.00 - Acute respiratory failure, unspecified whether with hypoxia or hypercapnia Plan: Resolved (4) LLL pneumonia Qualifiers: Pneumonia type: due to unspecified organism Qualified Code(s): J18.1 - Lobar pneumonia, unspecified organism Is this a current diagnosis for this admission?: YesPlan: Continue Levaquin (5) Non-ST elevation myocardial infarction (NSTEMI), type 2 Plan: Stable continue current meds. Stress test negative (6) Phantom pain Plan: Continue current pain medication. Pain is improved today. She got her medicines late today because there was no other urgency on the floor. - Time Time Spent with patient: 15-24 minutes - Inpatient Certification Medical Necessity: Need Close Monitoring Due to Risk of Patient Decompensation
[2016-06-11] MEDS: OXYCODONE HCL IR 5 MG TABLET PO PRN ×2 (14:10→19:59)
--- NOTE | 2016-06-11 20:30 | PDOC PROGRESS REPORT ---
Subjective Progress Note for:: 06/11/16 Subjective:: Patient seems to be doing better with gradual improvement. Pt is denying any chest arm or neck discomfort. Patient denying any PND, orthopnea. Patient denied any sustained palpitations, dizziness, syncope, near syncope. Patient denying any fever chills. Patient denying any other significant discomfort. Patient doing well from cardiac standpoint but now describes having migraine headaches. Patient is maintaining sinus rhythm. Nuclear stress test procedure results were reviewed with the patient. 2-D echo results were also reviewed. Patient has remained stable. She is on a stable regimen. Review of systems: Rest review of systems negative. Medications: Medications have been reviewed. Physical Exam Vital Signs: Temp Pulse Resp BP Pulse Ox 98.4 F 99 18 128/79 H 98 06/11/16 16:00 06/11/16 19:00 06/11/16 16:00 06/11/16 16:00 06/11/16 16:00 Intake & Output 06/10/16 06/11/16 06/12/16 06:59 06:59 06:59 Intake Total 991 1245 829 Output Total 300 Balance 991 945 829 Weight 60.4 kg 60.6 kg Exam: GENERAL: well-nourished and in no acute distress. Alert and oriented x3 HEAD: Atraumatic, normocephalic. EYES: Pupils equal round and reactive to light, extraocular movements intact, sclera anicteric, conjunctiva are normal. ENT: TMs normal, nares patent, oropharynx clear without exudates. Moist mucous membranes. No oral ulcerations or bleeding gums noted NECK: supple without lymphadenopathy. Trachea is central. No cervical or axillary lymphadenopathy noted. Carotids are 2+, JVD WNL LUNGS: Respiration seems nonlabored, no significant accessory muscle action noted. Breath sounds clear to auscultation bilaterally and equal noted. No wheezes rales or rhonchi noted. No significant dullness noted on percussion. CHEST: Palpation of the chest wall shows no significant chest wall tenderness. No other significant abnormalities noted. 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 ABDOMEN: Soft, no significant tenderness appreciated, normoactive bowel sounds. No guarding, no rebound. No rigidity noted . No masses appreciated. EXTREMITIES: Pedal pulses are 1-2+, no calf tenderness noted. No clubbing or cyanosis.no pedal edema noted. Patient status post below-knee amputation on the left side. NEUROLOGICAL: Focused neurological exam showed no significant neurologic deficit. Normal speech, no focal weakness appreciated. PSYCH: Normal mood, normal affect. Judgment and insight within normal limits. SKIN: No significant ecchymosis, rash, ulcerations or signs of pruritus noted. MUSCULOSKELETAL EXAM: No significant joint swelling noted. Results Laboratory Results: 06/06/16 06:45 06/11/16 05:45 06/11/16 05:45 Sodium 142.0 Potassium 3.5 L Chloride 99 Carbon Dioxide 35 H Anion Gap 8 BUN 11 Creatinine 1.31 H Est GFR ( Amer) 50 L Est GFR (Non-Af Amer) 42 L Glucose 79 Calcium 9.1 05/30/16 05/30/16 05/31/16 04:00 04:00 05:45 Creatine Kinase 110 CK-MB (CK-2) 3.10 Troponin I 0.270 0.136 Impressions: Abdomen Ultrasound 05/30/16 00:00 IMPRESSION: No gallstones are identified. There is thickening of the gallbladder ko and there is pericholecystic fluid. This was present on the previous CT scan. The possibility of an acalculous cholecystitis should be considered. Other findings as noted above Abdomen/Pelvis CT 05/30/16 01:00 IMPRESSION: There is relative increased density within the gallbladder lumen which could represent biliary sludge. Pericholecystic fluid is identified in the possibility of cholecystitis should be considered. Abdominal ultrasound may be of value for confirmation if clinically warranted. Bibasilar densities representing small bilateral pleural effusions with associated airspace consolidation which could represent atelectatic changes or basilar infiltrates. Other findings as noted above Hepatobiliary Scan Nuclear Medicine 05/31/16 00:00 IMPRESSION: NO CYSTIC OR COMMON DUCT OBSTRUCTION. KUB X-Ray 06/02/16 08:01 IMPRESSION: Allowing for paucity of bowel gas, negative study. Limited as above. Chest X-Ray 06/05/16 06:00 IMPRESSION: Small bilateral pleural effusions with pulmonary vascular congestion. Question mild perihilar edema. Findings are similar compared to . Persistent dense consolidation left lower lobe atelectasis versus pneumonia. Assessment & Plan - Diagnosis (1) Non-ST elevation myocardial infarction (NSTEMI), type 2 Is this a current diagnosis for this admission?: Yes (2) Diabetes mellitus Qualifiers: Diabetes mellitus type: type 2 Diabetes mellitus complication status: with unspecified complications Is this a current diagnosis for this admission?: Yes (3) Pneumonia Qualifiers: Pneumonia type: due to unspecified organism Laterality: bilateral Lung location: unspecified part of lung Qualified Code(s): J18.9 - Pneumonia, unspecified organism Is this a current diagnosis for this admission?: Yes (4) HTN (hypertension) Qualifiers: Hypertension type: essential hypertension Qualified Code(s): I10 - Essential (primary) hypertension Is this a current diagnosis for this admission?: Yes (5) Hypercoagulable state Is this a current diagnosis for this admission?: Yes - Notes Notes: Nuclear stress test procedure results were reviewed with the patient. 2-D echo results were also reviewed. Patient has remained stable. She is on a stable regimen. Non-STEMI: [place] to be mostly related to metabolic reasons and type II. Nuclear stress test was negative for significant ischemia. These were explained to the patient. Recommend statins, GALA inhibitor, beta lorraine therapy to reduce future cardiovascular events. Patient has been stable for last several days. Diabetes: Currently being expertly managed by hospitalist. Pneumonia: This is improved. Hypertension: Stable Hypercoagulable state: Being managed by solutions market consultant. Patient currently is stable. Patient would like to follow up with me for further cardiovascular care if needed. Would recommend a follow-up appointment. Will sign off. Please reconsult if needed. - Time Time with patient: 15-25 minutes - CODE STATUS was discussed, patient remains full code. Surrogate decision-maker unchanged. Multiple medical problems were addressed.More than 50% of the time spent coordinating care, discussing management plans with involved caregivers. Management plans discussed with involved personnels. Medical decision making was of moderate complex but signing off.
[2016-06-11] MEDS: ATORVASTATIN CALCIUM 20 MG TABLET PO SCH (22:10)
[2016-06-11] MEDS: ASPIRIN 81 MG TABLET, ENT COATED PO SCH (22:11)
[2016-06-12] MEDS: OXYCODONE HCL IR 5 MG TABLET PO PRN ×4 (00:56→20:57)
[2016-06-12 06:04] LABS: ANION GAP 11 (5-19); BLOOD UREA NITROGEN 10 mg/dL (7-20); CALCIUM 9.2 mg/dL (8.4-10.2); CARBON DIOXIDE 33 mmol/L (22-30); CHLORIDE 99 mmol/L (98-107); CREATININE RESULT 1.34 mg/dL (0.52-1.25); GLUCOSE 75 mg/dL (75-110); POTASSIUM 3.5 mmol/L (3.6-5.0)
[2016-06-12] MEDS: IPRATROPIUM/ALBUTEROL 0.5-2.5 MG/3 ML AMPUL NEB SCH ×3 (08:15→20:30)
[2016-06-12] MEDS: FONDAPARINUX SODIUM INJ 7.5 MG/0.6 ML DISP.SYRIN SUBCUT SCH (09:44)
[2016-06-12] MEDS: METOPROLOL TARTRATE 25 MG TABLET PO SCH ×2 (09:48→22:25)
[2016-06-12] MEDS: LISINOPRIL 5 MG TABLET PO SCH (09:48)
[2016-06-12] MEDS: LEVOFLOXACIN 500 MG TABLET PO SCH (09:48)
[2016-06-12] MEDS: OXYCODONE HCL SR 10 MG TABLET PO SCH ×2 (09:49→22:25)
[2016-06-12] MEDS: POTASSIUM CHLORIDE 10 MEQ TABLET.SA PO SCH (12:45)
--- NOTE | 2016-06-12 13:12 | PDOC PROGRESS REPORT ---
Physical Exam Vital Signs: Temp Pulse Resp BP Pulse Ox 98.7 F 71 16 128/75 H 95 06/12/16 07:37 06/12/16 07:37 06/12/16 07:37 06/12/16 07:37 06/12/16 07:37 Intake & Output 06/11/16 06/12/16 06/13/16 06:59 06:59 06:59 Intake Total 1245 1304 Output Total 300 Balance 945 1304 Weight 60.6 kg 60 kg PHYSICAL EXAM: GENERAL: This is a well-developed well-nourished white female resting in no acute distress. HEART: Regular rate and rhythm. No murmurs rubs or gallops. LUNGS: Clear to auscultation bilaterally with equal rise and fall of the chest. Productive cough noted at the bedside ABDOMEN: Soft, nontender, distended today with normoactive bowel sounds EXTREMITIES: No clubbing cyanosis or edema. Left BKA NEURO: Awake, alert, oriented x3. Cranial nerves II through XII grossly intact. PSYCH: Normal affect. LINES: Right IJ clean dry and intact. : No Reynolds present Results Laboratory Results: 06/06/16 06:45 06/12/16 04:40 06/12/16 04:40 Sodium 143.0 Potassium 3.5 L Chloride 99 Carbon Dioxide 33 H Anion Gap 11 BUN 10 Creatinine 1.34 H Est GFR ( Amer) 49 L Est GFR (Non-Af Amer) 41 L Glucose 75 Calcium 9.2 05/30/16 05/30/16 05/31/16 04:00 04:00 05:45 Creatine Kinase 110 CK-MB (CK-2) 3.10 Troponin I 0.270 0.136 Impressions: Abdomen Ultrasound 05/30/16 00:00 IMPRESSION: No gallstones are identified. There is thickening of the gallbladder ko and there is pericholecystic fluid. This was present on the previous CT scan. The possibility of an acalculous cholecystitis should be considered. Other findings as noted above Abdomen/Pelvis CT 05/30/16 01:00 IMPRESSION: There is relative increased density within the gallbladder lumen which could represent biliary sludge. Pericholecystic fluid is identified in the possibility of cholecystitis should be considered. Abdominal ultrasound may be of value for confirmation if clinically warranted. Bibasilar densities representing small bilateral pleural effusions with associated airspace consolidation which could represent atelectatic changes or basilar infiltrates. Other findings as noted above Hepatobiliary Scan Nuclear Medicine 05/31/16 00:00 IMPRESSION: NO CYSTIC OR COMMON DUCT OBSTRUCTION. KUB X-Ray 06/02/16 08:01 IMPRESSION: Allowing for paucity of bowel gas, negative study. Limited as above. Chest X-Ray 06/05/16 06:00 IMPRESSION: Small bilateral pleural effusions with pulmonary vascular congestion. Question mild perihilar edema. Findings are similar compared to . Persistent dense consolidation left lower lobe atelectasis versus pneumonia. Assessment & Plan - Diagnosis (1) Acute acalculous cholecystitis Is this a current diagnosis for this admission?: Yes (2) Acute renal failure Qualifiers: Acute renal failure type: unspecified Qualified Code(s): N17.9 - Acute kidney failure, unspecified Is this a current diagnosis for this admission?: Yes (3) Acute respiratory failure Qualifiers: Respiratory failure complication: unspecified whether with hypoxia or hypercapnia Qualified Code(s): J96.00 - Acute respiratory failure, unspecified whether with hypoxia or hypercapnia Is this a current diagnosis for this admission?: Yes (4) LLL pneumonia Qualifiers: Pneumonia type: due to unspecified organism Qualified Code(s): J18.1 - Lobar pneumonia, unspecified organism Is this a current diagnosis for this admission?: Yes (5) Non-ST elevation myocardial infarction (NSTEMI), type 2 Is this a current diagnosis for this admission?: Yes (6) Phantom pain Is this a current diagnosis for this admission?: Yes
--- NOTE | 2016-06-12 13:15 | PDOC PROGRESS REPORT ---
Subjective Progress Note for:: 06/12/16 Subjective:: She currently has few complaints. She complains of abdominal pain. And questions whether or not she should be getting steroids for her Crohn's disease. Physical Exam Vital Signs: Temp Pulse Resp BP Pulse Ox 98.4 F 74 18 124/67 97 06/12/16 12:12 06/12/16 12:12 06/12/16 12:12 06/12/16 12:12 06/12/16 12:12 Intake & Output 06/11/16 06/12/16 06/13/16 06:59 06:59 06:59 Intake Total 1245 1304 120 Output Total 300 Balance 945 1304 120 Weight 60.6 kg 60 kg PHYSICAL EXAM: GENERAL: This is a well-developed well-nourished white female resting in no acute distress. HEART: Regular rate and rhythm. No murmurs rubs or gallops. LUNGS: Clear to auscultation bilaterally with equal rise and fall of the chest. ABDOMEN: Soft, tender, distended today with normoactive bowel sounds EXTREMITIES: No clubbing cyanosis or edema. Left BKA NEURO: Awake, alert, oriented x3. Cranial nerves II through XII grossly intact. PSYCH: Normal affect. LINES: Right IJ clean dry and intact. : No Reynolds present Results Laboratory Results: 06/06/16 06:45 06/12/16 04:40 06/12/16 04:40 Sodium 143.0 Potassium 3.5 L Chloride 99 Carbon Dioxide 33 H Anion Gap 11 BUN 10 Creatinine 1.34 H Est GFR ( Amer) 49 L Est GFR (Non-Af Amer) 41 L Glucose 75 Calcium 9.2 05/30/16 05/30/16 05/31/16 04:00 04:00 05:45 Creatine Kinase 110 CK-MB (CK-2) 3.10 Troponin I 0.270 0.136 Impressions: Abdomen Ultrasound 05/30/16 00:00 IMPRESSION: No gallstones are identified. There is thickening of the gallbladder ko and there is pericholecystic fluid. This was present on the previous CT scan. The possibility of an acalculous cholecystitis should be considered. Other findings as noted above Abdomen/Pelvis CT 05/30/16 01:00 IMPRESSION: There is relative increased density within the gallbladder lumen which could represent biliary sludge. Pericholecystic fluid is identified in the possibility of cholecystitis should be considered. Abdominal ultrasound may be of value for confirmation if clinically warranted. Bibasilar densities representing small bilateral pleural effusions with associated airspace consolidation which could represent atelectatic changes or basilar infiltrates. Other findings as noted above Hepatobiliary Scan Nuclear Medicine 05/31/16 00:00 IMPRESSION: NO CYSTIC OR COMMON DUCT OBSTRUCTION. KUB X-Ray 06/02/16 08:01 IMPRESSION: Allowing for paucity of bowel gas, negative study. Limited as above. Chest X-Ray 06/05/16 06:00 IMPRESSION: Small bilateral pleural effusions with pulmonary vascular congestion. Question mild perihilar edema. Findings are similar compared to . Persistent dense consolidation left lower lobe atelectasis versus pneumonia. Assessment & Plan - Diagnosis (1) Acute respiratory failure Qualifiers: Qualified Code(s): J96.00 - Acute respiratory failure, unspecified whether with hypoxia or hypercapnia Plan: Acute hypoxemic respiratory failure. Status post intubation. Resolved (2) Acute acalculous cholecystitis Plan: Stable. Resolved status post multiple antibiotics to include vancomycin, gentamicin, doxycycline, Zosyn, Levaquin. These antibiotics have been ongoing since May 29. LFTs have normalized. The scan was normal. She was not a candidate for percutaneous drain at the time of admission. He has done well with medical management. Will discontinue all antibiotics. (3) Acute renal failure Qualifiers: Qualified Code(s): N17.9 - Acute kidney failure, unspecified Plan: Improved. Secondary to sepsis with shock. (4) LLL pneumonia Qualifiers: Qualified Code(s): J18.1 - Lobar pneumonia, unspecified organism Plan: Patient had been on multiple medications to include vancomycin, gentamicin, doxycycline, Zosyn, and Levaquin,. He is considered to have hospital-acquired pneumonia secondary to her immunosuppressants as well as recent admission for BKA at an outside hospital. She's been treated since May 29. I'm going to discontinue all antibiotics. (5) Non-ST elevation myocardial infarction (NSTEMI), type 2 Plan: She likely has a type II end STEMI secondary to sepsis with shock. Stable continue current meds. Stress test negative (6) Phantom pain Plan: Continue current pain medication. Pain is improved today. - Time Time Spent with patient: 25-34 minutes - This includes extensive chart review. Discussion with the patient and medical management. - Inpatient Certification Medical Necessity: Significant Comorbidiites Make Outpatient Treatment Too Risky
[2016-06-12] MEDS: ONDANSETRON HCL INJ/PF 4 MG/2 ML SDV IV PRN (15:23)
--- NOTE | 2016-06-12 15:25 | PDOC PROGRESS REPORT ---
Subjective Progress Note for:: 06/09/16 Subjective:: feeling much better Physical Exam Vital Signs: Temp Pulse Resp BP Pulse Ox 98.1 F 70 16 114/73 93 06/09/16 07:07 06/09/16 08:38 06/09/16 08:38 06/09/16 07:07 06/09/16 08:38 Intake & Output 06/08/16 06/09/16 06/10/16 06:59 06:59 06:59 Intake Total 1920 405 Output Total 100 Balance 1920 305 Weight 60.9 kg 60.8 kg General appearance: PRESENT: no acute distress, disheveled, obese, well- developed Head exam: PRESENT: atraumatic, normocephalic Eye exam: PRESENT: conjunctiva pale Mouth exam: PRESENT: moist, neck supple Neck exam: ABSENT: carotid bruit, JVD, lymphadenopathy, thyromegaly Respiratory exam: PRESENT: crackles, decreased breath sounds, prolonged expiratory phas, rhonchi, unlabored Cardiovascular exam: PRESENT: RRR, +S1, +S2 Pulses: PRESENT: normal radial pulses GI/Abdominal exam: PRESENT: normal bowel sounds, soft. ABSENT: distended, guarding, mass, organolmegaly, rebound, tenderness Rectal exam: PRESENT: deferred Gentrourinary exam: PRESENT: indwelling catheter Musculoskeletal exam: PRESENT: normal inspection Skin exam: PRESENT: dry, warm Results Laboratory Results: 06/06/16 06:45 06/09/16 04:00 06/09/16 06/09/16 04:00 04:00 Sodium 143.3 Potassium 2.9 L* Chloride 102 Carbon Dioxide 35 H Anion Gap 6 BUN 13 Creatinine 1.19 Est GFR ( Amer) 56 L Est GFR (Non-Af Amer) 47 L Glucose 81 Calcium 9.0 Magnesium 1.9 05/30/16 05/30/16 05/31/16 04:00 04:00 05:45 Creatine Kinase 110 CK-MB (CK-2) 3.10 Troponin I 0.270 0.136 Impressions: Abdomen Ultrasound 05/30/16 00:00 IMPRESSION: No gallstones are identified. There is thickening of the gallbladder ko and there is pericholecystic fluid. This was present on the previous CT scan. The possibility of an acalculous cholecystitis should be considered. Other findings as noted above Abdomen/Pelvis CT 05/30/16 01:00 IMPRESSION: There is relative increased density within the gallbladder lumen which could represent biliary sludge. Pericholecystic fluid is identified in the possibility of cholecystitis should be considered. Abdominal ultrasound may be of value for confirmation if clinically warranted. Bibasilar densities representing small bilateral pleural effusions with associated airspace consolidation which could represent atelectatic changes or basilar infiltrates. Other findings as noted above Hepatobiliary Scan Nuclear Medicine 05/31/16 00:00 IMPRESSION: NO CYSTIC OR COMMON DUCT OBSTRUCTION. KUB X-Ray 06/02/16 08:01 IMPRESSION: Allowing for paucity of bowel gas, negative study. Limited as above. Chest X-Ray 06/05/16 06:00 IMPRESSION: Small bilateral pleural effusions with pulmonary vascular congestion. Question mild perihilar edema. Findings are similar compared to . Persistent dense consolidation left lower lobe atelectasis versus pneumonia. Assessment & Plan - Diagnosis (1) Abnormal CT scan, gallbladder Is this a current diagnosis for this admission?: No (2) Acute respiratory failure with hypoxia Is this a current diagnosis for this admission?: No (3) LLL pneumonia Qualifiers: Pneumonia type: due to unspecified organism Qualified Code(s): J18.1 - Lobar pneumonia, unspecified organism Is this a current diagnosis for this admission?: Yes (4) Septic shock Is this a current diagnosis for this admission?: No
--- NOTE | 2016-06-12 15:35 | PDOC PROGRESS REPORT ---
Subjective Progress Note for:: 06/10/16 Subjective:: has a headache but overall better Physical Exam Vital Signs: Temp Pulse Resp BP Pulse Ox 98.4 F 74 18 124/67 97 06/12/16 12:12 06/12/16 12:12 06/12/16 12:12 06/12/16 12:12 06/12/16 12:12 Intake & Output 06/11/16 06/12/16 06/13/16 06:59 06:59 06:59 Intake Total 1245 1304 120 Output Total 300 Balance 945 1304 120 Weight 60.6 kg 60 kg General appearance: PRESENT: no acute distress, disheveled, obese Head exam: PRESENT: atraumatic, normocephalic Eye exam: PRESENT: conjunctiva pale, EOMI Mouth exam: PRESENT: moist, neck supple Neck exam: ABSENT: carotid bruit, JVD, lymphadenopathy, thyromegaly Respiratory exam: PRESENT: decreased breath sounds, prolonged expiratory phas, rhonchi, symmetrical, unlabored, other - improved over last 24 hrs Cardiovascular exam: PRESENT: RRR, +S1, +S2 Pulses: PRESENT: normal radial pulses GI/Abdominal exam: PRESENT: normal bowel sounds, soft. ABSENT: distended, guarding, mass, organolmegaly, rebound, tenderness Rectal exam: PRESENT: deferred Gentrourinary exam: PRESENT: indwelling catheter Musculoskeletal exam: ABSENT: other - s/p bka Neurological exam: PRESENT: alert, awake Psychiatric exam: PRESENT: normal mood Skin exam: PRESENT: dry, warm Results Laboratory Results: 06/06/16 06:45 06/12/16 04:40 06/12/16 04:40 Sodium 143.0 Potassium 3.5 L Chloride 99 Carbon Dioxide 33 H Anion Gap 11 BUN 10 Creatinine 1.34 H Est GFR ( Amer) 49 L Est GFR (Non-Af Amer) 41 L Glucose 75 Calcium 9.2 05/30/16 05/30/16 05/31/16 04:00 04:00 05:45 Creatine Kinase 110 CK-MB (CK-2) 3.10 Troponin I 0.270 0.136 Impressions: Abdomen Ultrasound 05/30/16 00:00 IMPRESSION: No gallstones are identified. There is thickening of the gallbladder ko and there is pericholecystic fluid. This was present on the previous CT scan. The possibility of an acalculous cholecystitis should be considered. Other findings as noted above Abdomen/Pelvis CT 05/30/16 01:00 IMPRESSION: There is relative increased density within the gallbladder lumen which could represent biliary sludge. Pericholecystic fluid is identified in the possibility of cholecystitis should be considered. Abdominal ultrasound may be of value for confirmation if clinically warranted. Bibasilar densities representing small bilateral pleural effusions with associated airspace consolidation which could represent atelectatic changes or basilar infiltrates. Other findings as noted above Hepatobiliary Scan Nuclear Medicine 05/31/16 00:00 IMPRESSION: NO CYSTIC OR COMMON DUCT OBSTRUCTION. KUB X-Ray 06/02/16 08:01 IMPRESSION: Allowing for paucity of bowel gas, negative study. Limited as above. Chest X-Ray 06/05/16 06:00 IMPRESSION: Small bilateral pleural effusions with pulmonary vascular congestion. Question mild perihilar edema. Findings are similar compared to . Persistent dense consolidation left lower lobe atelectasis versus pneumonia. Assessment & Plan - Diagnosis (1) Abnormal CT scan, gallbladder Is this a current diagnosis for this admission?: No (2) Acute respiratory failure with hypoxia Is this a current diagnosis for this admission?: No (3) LLL pneumonia Qualifiers: Pneumonia type: due to unspecified organism Qualified Code(s): J18.1 - Lobar pneumonia, unspecified organism Is this a current diagnosis for this admission?: YesPlan: improving (4) Septic shock Is this a current diagnosis for this admission?: No
[2016-06-12] MEDS ORDERED: PREDNISONE 10 MG TABLET PO SCH (19:00)
[2016-06-12] MEDS ORDERED: AZATHIOPRINE 50 MG TABLET PO SCH (19:00)
[2016-06-12] MEDS ORDERED: PREDNISONE 10 MG TABLET PO ONE (20:00)
[2016-06-12] MEDS: ATORVASTATIN CALCIUM 20 MG TABLET PO SCH (22:25)
[2016-06-12] MEDS: ASPIRIN 81 MG TABLET, ENT COATED PO SCH (22:25)
[2016-06-13 05:24] LABS: ABSOLUTE BASOPHILS # (AUTO) 0.1 10^3/uL (0.0-0.2); ABSOLUTE LYMPHOCYTES (AUTO) 0.7 10^3/uL (0.5-4.7); ABSOLUTE MONOCYTES (AUTO) 0.3 10^3/uL (0.1-1.4); BASOPHILS % (AUTO) 0.7 % (0-2); HEMATOCRIT 30.7 % (36.0-47.0); HEMOGLOBIN 10.1 g/dL (12.0-15.5); HGB HCT DIFFERENCE -0.4; LYMPHOCYTES % (AUTO) 8.7 % (13-45); MEAN CORPUSCULAR HEMOGLOBIN 28.8 pg (27.0-33.4); MEAN CORPUSCULAR HGB CONC 32.8 g/dL (32.0-36.0); MEAN CORPUSCULAR VOLUME 88 fl (80-97); MONOCYTES % (AUTO) 3.7 % (3-13); SEGMENTED NEUTROPHILS % (AUTO) 86.9 % (42-78)
[2016-06-13 05:36] LABS: ALANINE AMINOTRANSFERASE 41 U/L (9-52); ALBUMIN 2.9 g/dL (3.5-5.0); ALKALINE PHOSPHATASE 86 U/L (38-126); ANION GAP 12 (5-19); ASPARTATE AMINO TRANSFERASE 17 U/L (14-36); BILIRUBIN,DIRECT 0.3 mg/dL (0.0-0.4); BILIRUBIN,TOTAL 0.5 mg/dL (0.2-1.3); BLOOD UREA NITROGEN 16 mg/dL (7-20); CALCIUM 9.3 mg/dL (8.4-10.2); CARBON DIOXIDE 32 mmol/L (22-30); CHLORIDE 100 mmol/L (98-107); CREATININE RESULT 1.42 mg/dL (0.52-1.25); GLUCOSE 131 mg/dL (75-110); MAGNESIUM 2.1 mg/dL (1.6-2.3); POTASSIUM 4.4 mmol/L (3.6-5.0); SODIUM 143.7 mmol/L (137-145)
[2016-06-13] MEDS: OXYCODONE HCL IR 5 MG TABLET PO PRN ×3 (05:44→19:33)
[2016-06-13] MEDS: IPRATROPIUM/ALBUTEROL 0.5-2.5 MG/3 ML AMPUL NEB SCH ×2 (08:23→14:12)
[2016-06-13] MEDS: INSULIN LISPRO 100 UNIT/ML 3 ML VIAL SUBCUT PRN ×3 (09:02→22:12)
[2016-06-13] MEDS: METOPROLOL TARTRATE 25 MG TABLET PO SCH ×2 (09:55→21:55)
[2016-06-13] MEDS: LISINOPRIL 5 MG TABLET PO SCH (09:56)
[2016-06-13] MEDS: OXYCODONE HCL SR 10 MG TABLET PO SCH ×2 (09:56→21:56)
[2016-06-13] MEDS: PREDNISONE 10 MG TABLET PO SCH (09:56)
[2016-06-13] MEDS: FONDAPARINUX SODIUM INJ 7.5 MG/0.6 ML DISP.SYRIN SUBCUT SCH (10:04)
--- NOTE | 2016-06-13 11:55 | PDOC PROGRESS REPORT ---
Subjective Progress Note for:: 06/13/16 Subjective:: She currently has few complaints. She says her abdominal pain is much better today. She would like for her wheelchair to be brought in by her daughter. I have suggested that they wait until tomorrow when PT will be available. We have also discussed going home tomorrow or Tuesday depending on when home health arrangements can be made. Physical Exam Vital Signs: Temp Pulse Resp BP Pulse Ox 97.8 F 68 18 117/64 91 L 06/13/16 07:46 06/13/16 07:46 06/13/16 07:46 06/13/16 07:46 06/13/16 07:46 Intake & Output 06/12/16 06/13/16 06/14/16 06:59 06:59 06:59 Intake Total 1304 1249 Balance 1304 1249 Weight 60 kg 62 kg PHYSICAL EXAM: GENERAL: This is a well-developed well-nourished white female resting in no acute distress. She is quite jovial today HEART: Regular rate and rhythm. No murmurs rubs or gallops. LUNGS: Clear to auscultation bilaterally with equal rise and fall of the chest. ABDOMEN: Soft, tender, distended today with normoactive bowel sounds EXTREMITIES: No clubbing cyanosis or edema. Left BKA NEURO: Awake, alert, oriented x3. Cranial nerves II through XII grossly intact. PSYCH: Normal affect. LINES: Right IJ clean dry and intact. : No Reynolds present Results Laboratory Results: 06/13/16 04:40 06/13/16 04:40 06/13/16 06/13/16 04:40 04:40 WBC 8.0 RBC 3.50 L Hgb 10.1 L Hct 30.7 L MCV 88 MCH 28.8 MCHC 32.8 RDW 18.0 H Plt Count 296 Seg Neutrophils % 86.9 H Lymphocytes % 8.7 L Monocytes % 3.7 Eosinophils % 0.0 Basophils % 0.7 Absolute Neutrophils 7.0 Absolute Lymphocytes 0.7 Absolute Monocytes 0.3 Absolute Eosinophils 0.0 Absolute Basophils 0.1 Sodium 143.7 Potassium 4.4 Chloride 100 Carbon Dioxide 32 H Anion Gap 12 BUN 16 Creatinine 1.42 H Est GFR ( Amer) 46 L Est GFR (Non-Af Amer) 38 L Glucose 131 H Calcium 9.3 Magnesium 2.1 Total Bilirubin 0.5 AST 17 ALT 41 Alkaline Phosphatase 86 Total Protein 6.0 L Albumin 2.9 L 05/30/16 05/30/16 05/31/16 04:00 04:00 05:45 Creatine Kinase 110 CK-MB (CK-2) 3.10 Troponin I 0.270 0.136 Impressions: Abdomen Ultrasound 05/30/16 00:00 IMPRESSION: No gallstones are identified. There is thickening of the gallbladder ko and there is pericholecystic fluid. This was present on the previous CT scan. The possibility of an acalculous cholecystitis should be considered. Other findings as noted above Abdomen/Pelvis CT 05/30/16 01:00 IMPRESSION: There is relative increased density within the gallbladder lumen which could represent biliary sludge. Pericholecystic fluid is identified in the possibility of cholecystitis should be considered. Abdominal ultrasound may be of value for confirmation if clinically warranted. Bibasilar densities representing small bilateral pleural effusions with associated airspace consolidation which could represent atelectatic changes or basilar infiltrates. Other findings as noted above Hepatobiliary Scan Nuclear Medicine 05/31/16 00:00 IMPRESSION: NO CYSTIC OR COMMON DUCT OBSTRUCTION. KUB X-Ray 06/02/16 08:01 IMPRESSION: Allowing for paucity of bowel gas, negative study. Limited as above. Chest X-Ray 06/05/16 06:00 IMPRESSION: Small bilateral pleural effusions with pulmonary vascular congestion. Question mild perihilar edema. Findings are similar compared to . Persistent dense consolidation left lower lobe atelectasis versus pneumonia. Assessment & Plan - Diagnosis (1) Acute respiratory failure Qualifiers: Respiratory failure complication: hypoxia Qualified Code(s): J96.01 - Acute respiratory failure with hypoxia Plan: Acute hypoxemic respiratory failure secondary to septic shock, pneumonia, and acute cholecystitis. Status post intubation. Resolved (2) Severe sepsis with septic shock Plan: Resolved. Septic shock secondary to left lower lobe pneumonia and acute cholecystitis. Status post presence of support, Solu-Cortef, antibiotic therapy and intubation. (3) Acute acalculous cholecystitis Plan: Stable. Resolved status post multiple antibiotics to include vancomycin, gentamicin, doxycycline, Zosyn, Levaquin. These antibiotics have been ongoing since May 29. LFTs have normalized. The HIDA scan was normal. She was not a candidate for percutaneous drain at the time of admission. He has done well with medical management. All antibiotics discontinued. It may be that in the near future the patient may need her gallbladder out. This can be decided as an outpatient. (4) Acute renal failure Qualifiers: Acute renal failure type: unspecified Qualified Code(s): N17.9 - Acute kidney failure, unspecified Plan: Improved. Secondary to sepsis with shock. (5) LLL pneumonia Qualifiers: Pneumonia type: due to unspecified organism Qualified Code(s): J18.1 - Lobar pneumonia, unspecified organism Plan: Patient had been on multiple medications to include vancomycin, gentamicin, doxycycline, Zosyn, and Levaquin,. She is considered to have hospital-acquired pneumonia secondary to her immunosuppressants as well as recent admission for BKA at an outside hospital. She is now status post antibiotic (6) Non-ST elevation myocardial infarction (NSTEMI), type 2 Plan: She likely has a type II end STEMI secondary to sepsis with shock. Stable continue current meds. Stress test negative. No further intervention (7) Phantom pain Plan: Continue current pain medication. Pain is under reasonable control. (8) Hypoalbuminemia Plan: Encouraged adequate diet. (9) Hypokalemia Plan: Replaced and resolved. (10) Hypomagnesemia Plan: Replaced and resolved. (11) Crohns disease Qualifiers: Gastrointestinal tract location: unspecified location Digestive disease complication type: unspecified complication Qualified Code(s): K50.919 - Crohn's disease, unspecified, with unspecified complications Plan: Pain is under better control today. The patient has been started on 30 of prednisone daily along with as Imuran (12) Hx of BKA Qualifiers: Laterality: left Qualified Code(s): Z89.512 - Acquired absence of left leg below knee Plan: Follow-up as an outpatient for prosthesis (13) Iron deficiency anemia due to chronic blood loss Plan: Stable. 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 Continue current medications. (15) Hypercoagulable state Plan: Continue with Arixtra - Time Time Spent with patient: 25-34 minutes Anticipated discharge: Home with Homehealth - Inpatient Certification Medical Necessity: Significant Comorbidiites Make Outpatient Treatment Too Risky
[2016-06-13] MEDS: POTASSIUM CHLORIDE 10 MEQ TABLET.SA PO SCH (12:04)
[2016-06-13] MEDS ORDERED: AZATHIOPRINE 50 MG TABLET PO ONE (13:00)
[2016-06-13] MEDS: PROCHLORPERAZINE EDISYLATE INJ 10 MG/2 ML VIAL IV PRN (16:26)
[2016-06-13] MEDS: ATORVASTATIN CALCIUM 20 MG TABLET PO SCH (21:55)
[2016-06-13] MEDS: ASPIRIN 81 MG TABLET, ENT COATED PO SCH (21:56)
[2016-06-14] MEDS: OXYCODONE HCL IR 5 MG TABLET PO PRN ×6 (00:20→20:19)
[2016-06-14 06:42] LABS: ABSOLUTE BASOPHILS # (AUTO) 0.1 10^3/uL (0.0-0.2); ABSOLUTE EOSINOPHILS # (AUTO) 0.1 10^3/uL (0.0-0.6); ABSOLUTE LYMPHOCYTES (AUTO) 1.8 10^3/uL (0.5-4.7); ABSOLUTE MONOCYTES (AUTO) 0.9 10^3/uL (0.1-1.4); ABSOLUTE NEUT (AUTO) 6.7 10^3/uL (1.7-8.2); BASOPHILS % (AUTO) 1.1 % (0-2); EOSINOPHILS % (AUTO) 0.8 % (0-6); HEMATOCRIT 30.1 % (36.0-47.0); HEMOGLOBIN 9.9 g/dL (12.0-15.5); HGB HCT DIFFERENCE -0.4; LYMPHOCYTES % (AUTO) 18.8 % (13-45); MEAN CORPUSCULAR HEMOGLOBIN 28.5 pg (27.0-33.4); MEAN CORPUSCULAR HGB CONC 32.8 g/dL (32.0-36.0); MEAN CORPUSCULAR VOLUME 87 fl (80-97); MONOCYTES % (AUTO) 9.4 % (3-13); RED BLOOD COUNT 3.47 10^6/uL (3.72-5.28); RED CELL DISTRIBUTION WIDTH 17.4 % (11.5-14.0); SEGMENTED NEUTROPHILS % (AUTO) 69.9 % (42-78); WHITE BLOOD COUNT 9.5 10^3/uL (4.0-10.5)
[2016-06-14 07:17] LABS: ANION GAP 10 (5-19); BLOOD UREA NITROGEN 24 mg/dL (7-20); CALCIUM 9.3 mg/dL (8.4-10.2); CARBON DIOXIDE 31 mmol/L (22-30); CHLORIDE 103 mmol/L (98-107); GLUCOSE 81 mg/dL (75-110); POTASSIUM 3.3 mmol/L (3.6-5.0); SODIUM 143.5 mmol/L (137-145)
[2016-06-14] MEDS: PROCHLORPERAZINE EDISYLATE INJ 10 MG/2 ML VIAL IV PRN ×2 (08:05→20:58)
[2016-06-14] MEDS ORDERED: POTASSI CL 20 MEQ/50 ML RIDER 50 ML IV ONE (08:18)
[2016-06-14] MEDS: PREDNISONE 10 MG TABLET PO SCH (09:27)
[2016-06-14] MEDS: METOPROLOL TARTRATE 25 MG TABLET PO SCH ×2 (10:35→22:28)
[2016-06-14] MEDS: LISINOPRIL 5 MG TABLET PO SCH (10:35)
[2016-06-14] MEDS: FONDAPARINUX SODIUM INJ 7.5 MG/0.6 ML DISP.SYRIN SUBCUT SCH (10:35)
[2016-06-14] MEDS: OXYCODONE HCL SR 10 MG TABLET PO SCH ×2 (10:35→22:28)
[2016-06-14] MEDS: AZATHIOPRINE 50 MG TABLET PO SCH (10:35)
--- NOTE | 2016-06-14 11:51 | PDOC PROGRESS REPORT ---
Subjective Progress Note for:: 06/14/16 Subjective:: Patient is in bed complaining of right inguinal pain. She states that she can' t move her leg. I told her she needs to work with physical therapy today despite that feeling. She has been seen by the pulmonology service was ordered an ultrasound of that area. Patient is scheduled to go home today or tomorrow. I have explained to her that at this point there are no change in my plans to do this. As you recall this patient was admitted on May 29. She came in with sepsis and associated shock secondary to acute cholecystitis and left lower lobe pneumonia. Patient was intubated and placed in the ICU. She was placed on broad-spectrum antibiotics. She had a surgical consult and discuss whether or not she would need percutaneous drainage. Unfortunately, she was not a candidate and she was treated with medical management. Fortunately, she was able to be weaned off the vent. She continued on antibiotics and eventually stepped down to [facility] level care. Her acute cholecystitis completely resolved. She was fully treated for left lower lobe pneumonia. All antibiotics were discontinued. Her renal failure due to underlying sepsis and this has resolved. She has been working with PT. Is been doing bed exercises but has not been out of the bed. She has refused to try and stand with physical therapy. She has a history of Crohn's disease for which she was started on prednisone and Imuran. She is feeling better from this perspective. My pain the patient is ready for discharge. I have recommended subacute rehabilitation but the patient has respectfully declined. She chooses to go home with her family and home health. My hope is to have her discharge tomorrow. Physical Exam Vital Signs: Temp Pulse Resp BP Pulse Ox 98.4 F 79 18 121/63 95 06/14/16 07:43 06/14/16 07:43 06/14/16 07:43 06/14/16 07:43 06/14/16 07:43 Intake & Output 06/13/16 06/14/16 06/15/16 06:59 06:59 06:59 Intake Total 1249 779 Output Total 725 Balance 1249 54 Weight 62 kg 58.3 kg PHYSICAL EXAM: GENERAL: This is a well-developed well-nourished white female resting in no acute distress. HEART: Regular rate and rhythm. No murmurs rubs or gallops. LUNGS: Clear to auscultation bilaterally with equal rise and fall of the chest. ABDOMEN: Soft, tender, distended today with normoactive bowel sounds. Palpation of the inguinal region on the right side yields no pain. The patient' s opts complaining when she is distracted. She continues to complain of pain when direct mention is made. Poor effort to try and move her leg on that side. EXTREMITIES: No clubbing cyanosis or edema. Left BKA NEURO: Awake, alert, oriented x3. Cranial nerves II through XII grossly intact. PSYCH: Normal affect. LINES: Right IJ clean dry and intact. : No Reynolds present Results Laboratory Results: 06/14/16 04:15 06/14/16 06:30 06/14/16 06/14/16 04:15 06:30 WBC 9.5 RBC 3.47 L Hgb 9.9 L Hct 30.1 L MCV 87 MCH 28.5 MCHC 32.8 RDW 17.4 H Plt Count 333 Seg Neutrophils % 69.9 Lymphocytes % 18.8 Monocytes % 9.4 Eosinophils % 0.8 Basophils % 1.1 Absolute Neutrophils 6.7 Absolute Lymphocytes 1.8 Absolute Monocytes 0.9 Absolute Eosinophils 0.1 Absolute Basophils 0.1 Sodium 143.5 Potassium 3.3 L Chloride 103 Carbon Dioxide 31 H Anion Gap 10 BUN 24 H Creatinine 1.50 H Est GFR ( Amer) 43 L Est GFR (Non-Af Amer) 36 L Glucose 81 Calcium 9.3 Magnesium 2.0 05/30/16 05/30/16 05/31/16 04:00 04:00 05:45 Creatine Kinase 110 CK-MB (CK-2) 3.10 Troponin I 0.270 0.136 Impressions: Abdomen Ultrasound 05/30/16 00:00 IMPRESSION: No gallstones are identified. There is thickening of the gallbladder ko and there is pericholecystic fluid. This was present on the previous CT scan. The possibility of an acalculous cholecystitis should be considered. Other findings as noted above Abdomen/Pelvis CT 05/30/16 01:00 IMPRESSION: There is relative increased density within the gallbladder lumen which could represent biliary sludge. Pericholecystic fluid is identified in the possibility of cholecystitis should be considered. Abdominal ultrasound may be of value for confirmation if clinically warranted. Bibasilar densities representing small bilateral pleural effusions with associated airspace consolidation which could represent atelectatic changes or basilar infiltrates. Other findings as noted above Hepatobiliary Scan Nuclear Medicine 05/31/16 00:00 IMPRESSION: NO CYSTIC OR COMMON DUCT OBSTRUCTION. KUB X-Ray 06/02/16 08:01 IMPRESSION: Allowing for paucity of bowel gas, negative study. Limited as above. Chest X-Ray 06/05/16 06:00 IMPRESSION: Small bilateral pleural effusions with pulmonary vascular congestion. Question mild perihilar edema. Findings are similar compared to . Persistent dense consolidation left lower lobe atelectasis versus pneumonia. Assessment & Plan - Diagnosis (1) Acute respiratory failure Qualifiers: Respiratory failure complication: hypoxia Qualified Code(s): J96.01 - Acute respiratory failure with hypoxia Plan: Acute hypoxemic respiratory failure secondary to septic shock, pneumonia, and acute cholecystitis. Status post intubation. Resolved (2) Severe sepsis with septic shock Plan: Resolved. Septic shock secondary to left lower lobe pneumonia and acute cholecystitis. Status post pressor support, Solu-Cortef, antibiotic therapy and intubation. (3) Acute acalculous cholecystitis Plan: Stable. Resolved status post multiple antibiotics to include vancomycin, gentamicin, doxycycline, Zosyn, Levaquin. These antibiotics have been ongoing since May 29. LFTs have normalized. The HIDA scan was normal. She was not a candidate for percutaneous drain at the time of admission. He has done well with medical management. All antibiotics discontinued. It may be that in the near future the patient may need her gallbladder out. This can be decided as an outpatient. (4) Acute renal failure Qualifiers: Acute renal failure type: unspecified Qualified Code(s): N17.9 - Acute kidney failure, unspecified Plan: Improved. Secondary to sepsis with shock. (5) LLL pneumonia Qualifiers: Pneumonia type: due to unspecified organism Qualified Code(s): J18.1 - Lobar pneumonia, unspecified organism Plan: Patient had been on multiple medications to include vancomycin, gentamicin, doxycycline, Zosyn, and Levaquin,. She is considered to have hospital-acquired pneumonia secondary to her immunosuppressants as well as recent admission for BKA at an outside hospital. She is now status post antibiotic (6) Non-ST elevation myocardial infarction (NSTEMI), type 2 Plan: She likely has a type II end STEMI secondary to sepsis with shock. Stable continue current meds. Stress test negative. No further intervention (7) Phantom pain Plan: Continue current pain medication. Pain is under reasonable control. (8) Hypoalbuminemia Plan: Encouraged adequate diet. (9) Hypokalemia Plan: Replaced again (10) Hypomagnesemia Plan: Replaced and resolved. (11) Crohns disease Qualifiers: Gastrointestinal tract location: unspecified location Digestive disease complication type: unspecified complication Qualified Code(s): K50.919 - Crohn's disease, unspecified, with unspecified complications Plan: Pain is under better control today. The patient has been started on 30 of prednisone daily along with Imuran (12) Hx of BKA Qualifiers: Laterality: left Qualified Code(s): Z89.512 - Acquired absence of left leg below knee Plan: Follow-up as an outpatient for prosthesis (13) Iron deficiency anemia due to chronic blood loss Plan: Stable. 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 Continue current medications. (15) Hypercoagulable state Plan: Continue with Arixtra (16) Right inguinal pain Plan: Ultrasound pending to rule out thrombus. - Time Time Spent with patient: 15-24 minutes Anticipated discharge: Home with Homehealth Within: within 24 hours - Inpatient Certification Medical Necessity: Significant Comorbidiites Make Outpatient Treatment Too Risky
--- NOTE | 2016-06-14 11:53 | PDOC PROGRESS REPORT ---
Subjective Progress Note for:: 06/08/16 Subjective:: Patient seen this morning at that time she had no complaints other than she was on a mechanical soft diet and wanted to be on a regular diet. He states that her pain is under better control. She denies any worsening shortness of breath or chest pain Physical Exam Vital Signs: Temp Pulse Resp BP Pulse Ox 98.6 F 78 19 126/82 H 97 06/08/16 15:42 06/08/16 15:42 06/08/16 15:42 06/08/16 15:42 06/08/16 15:42 Intake & Output 06/07/16 06/08/16 06/09/16 06:59 06:59 06:59 Intake Total 1336 1920 168 Output Total 100 Balance 1336 1920 68 Weight 62.9 kg 60.9 kg General appearance: PRESENT: no acute distress, well-developed, well-nourished Head exam: PRESENT: atraumatic, normocephalic Eye exam: PRESENT: conjunctiva pink. ABSENT: scleral icterus Mouth exam: PRESENT: moist Respiratory exam: PRESENT: decreased breath sounds. ABSENT: rales, rhonchi, wheezes Cardiovascular exam: PRESENT: RRR. ABSENT: gallop, rubs, systolic murmur Pulses: PRESENT: +1 pedal pulses bilateral - At the ankles Extremities exam: PRESENT: other - Right BKA with tenderness to palpation. ABSENT: clubbing - No cyanosis, +1 edema - At the ankle Psychiatric exam: PRESENT: normal mood Skin exam: PRESENT: dry, warm Results Laboratory Results: 06/06/16 06:45 06/08/16 07:45 06/08/16 07:45 Sodium 144.5 Potassium 3.1 L Chloride 102 Carbon Dioxide 35 H Anion Gap 8 BUN 13 Creatinine 1.23 Est GFR ( Amer) 54 L Est GFR (Non-Af Amer) 45 L Glucose 82 Calcium 8.6 05/30/16 05/30/16 05/31/16 04:00 04:00 05:45 Creatine Kinase 110 CK-MB (CK-2) 3.10 Troponin I 0.270 0.136 Impressions: Abdomen Ultrasound 05/30/16 00:00 IMPRESSION: No gallstones are identified. There is thickening of the gallbladder ko and there is pericholecystic fluid. This was present on the previous CT scan. The possibility of an acalculous cholecystitis should be considered. Other findings as noted above Abdomen/Pelvis CT 05/30/16 01:00 IMPRESSION: There is relative increased density within the gallbladder lumen which could represent biliary sludge. Pericholecystic fluid is identified in the possibility of cholecystitis should be considered. Abdominal ultrasound may be of value for confirmation if clinically warranted. Bibasilar densities representing small bilateral pleural effusions with associated airspace consolidation which could represent atelectatic changes or basilar infiltrates. Other findings as noted above Hepatobiliary Scan Nuclear Medicine 05/31/16 00:00 IMPRESSION: NO CYSTIC OR COMMON DUCT OBSTRUCTION. KUB X-Ray 06/02/16 08:01 IMPRESSION: Allowing for paucity of bowel gas, negative study. Limited as above. Chest X-Ray 06/05/16 06:00 IMPRESSION: Small bilateral pleural effusions with pulmonary vascular congestion. Question mild perihilar edema. Findings are similar compared to . Persistent dense consolidation left lower lobe atelectasis versus pneumonia. Assessment & Plan - Diagnosis (1) Acute acalculous cholecystitis Is this a current diagnosis for this admission?: YesPlan: Stable. Continue Levaquin (2) Acute renal failure Qualifiers: Acute renal failure type: unspecified Qualified Code(s): N17.9 - Acute kidney failure, unspecified Is this a current diagnosis for this admission?: YesPlan: Improved (3) Acute respiratory failure Qualifiers: Respiratory failure complication: unspecified whether with hypoxia or hypercapnia Qualified Code(s): J96.00 - Acute respiratory failure, unspecified whether with hypoxia or hypercapnia Is this a current diagnosis for this admission?: Yes (4) LLL pneumonia Qualifiers: Pneumonia type: due to unspecified organism Qualified Code(s): J18.1 - Lobar pneumonia, unspecified organism Is this a current diagnosis for this admission?: YesPlan: Continue Levaquin (5) Non-ST elevation myocardial infarction (NSTEMI), type 2 Is this a current diagnosis for this admission?: YesPlan: Stable continue current meds (6) Phantom pain Is this a current diagnosis for this admission?: YesPlan: Continue current pain medication - Time Time Spent with patient: 25-34 minutes - Inpatient Certification Medical Necessity: Need Close Monitoring Due to Risk of Patient Decompensation
[2016-06-14] MEDS: POTASSIUM CHLORIDE 10 MEQ TABLET.SA PO SCH (12:33)
--- NOTE | 2016-06-14 16:57 | XCELERA REPORT ---
[address] [address] Lower Extremity Venous Evaluation Name: RAI VOGT Age: 60 yrs Gender: Female : 1955 Patient Status: Inpatient Patient Location: [id number]\S\331\S\A Study Date: 06/14/2016 01:46 PM Procedure: Color flow and duplex imaging of the veins of the right lower extremity as well as the left Common Femoral vein. Reason For Study: RT LEG PAIN Ordering Physician: LATASHA WU Performed By: Laura Francis Right Sided Venous Evaluation Normal vessel filling wall to wall, compression and augmentation as well as Colour flow down to the infrageniculate veins. Left Sided Venous Evaluation The left common femoral vein is fully compressible. Spontaneous and phasic flow is present in the left common femoral vein. Interpretation Summary No duplex evidence of DVT or obstruction in the right lower extremity nor in the left Common Femoral vein. : LATASHA WU > Frederick Pacheco
[2016-06-14] MEDS: INSULIN LISPRO 100 UNIT/ML 3 ML VIAL SUBCUT PRN (17:19)
[2016-06-14] MEDS: ATORVASTATIN CALCIUM 20 MG TABLET PO SCH (22:28)
[2016-06-14] MEDS: ASPIRIN 81 MG TABLET, ENT COATED PO SCH (22:28)
[2016-06-15] MEDS: OXYCODONE HCL IR 5 MG TABLET PO PRN ×5 (00:21→20:32)
[2016-06-15 06:55] LABS: ABSOLUTE BASOPHILS # (AUTO) 0.1 10^3/uL (0.0-0.2); ABSOLUTE EOSINOPHILS # (AUTO) 0.1 10^3/uL (0.0-0.6); ABSOLUTE LYMPHOCYTES (AUTO) 1.7 10^3/uL (0.5-4.7); ABSOLUTE MONOCYTES (AUTO) 1.2 10^3/uL (0.1-1.4); ABSOLUTE NEUT (AUTO) 7.4 10^3/uL (1.7-8.2); BASOPHILS % (AUTO) 1.1 % (0-2); EOSINOPHILS % (AUTO) 0.5 % (0-6); HEMATOCRIT 27.9 % (36.0-47.0); HEMOGLOBIN 9.5 g/dL (12.0-15.5); HGB HCT DIFFERENCE 0.6; LYMPHOCYTES % (AUTO) 16.3 % (13-45); MEAN CORPUSCULAR HEMOGLOBIN 29.4 pg (27.0-33.4); MEAN CORPUSCULAR HGB CONC 34.2 g/dL (32.0-36.0); MEAN CORPUSCULAR VOLUME 86 fl (80-97); MONOCYTES % (AUTO) 11.8 % (3-13); RED BLOOD COUNT 3.25 10^6/uL (3.72-5.28); RED CELL DISTRIBUTION WIDTH 17.1 % (11.5-14.0); SEGMENTED NEUTROPHILS % (AUTO) 70.3 % (42-78); WHITE BLOOD COUNT 10.5 10^3/uL (4.0-10.5)
[2016-06-15 07:07] LABS: ANION GAP 12 (5-19); BLOOD UREA NITROGEN 17 mg/dL (7-20); CALCIUM 9.3 mg/dL (8.4-10.2); CARBON DIOXIDE 30 mmol/L (22-30); CHLORIDE 101 mmol/L (98-107); CREATININE RESULT 1.35 mg/dL (0.52-1.25); GLUCOSE 77 mg/dL (75-110); POTASSIUM 3.4 mmol/L (3.6-5.0); SODIUM 142.8 mmol/L (137-145)
--- NOTE | 2016-06-15 10:00 | PDOC PROGRESS REPORT ---
Subjective Progress Note for:: 06/15/16 Subjective:: Patient is still complaining of severe right a inguinal pain The pain is constant. She has a hard time moving the right lower extremity She cannot ambulate She does not have any nausea vomiting or abdominal distention Physical Exam Vital Signs: Temp Pulse Resp BP Pulse Ox 99.7 F 81 16 125/69 91 L 06/15/16 07:51 06/15/16 09:30 06/15/16 09:30 06/15/16 07:51 06/15/16 09:30 Intake & Output 06/14/16 06/15/16 06/16/16 00:59 00:59 00:59 Intake Total 1102 852 199 Output Total 400 325 Balance 702 527 199 Weight 58.3 kg 59.1 kg General appearance: PRESENT: mild distress Head exam: PRESENT: atraumatic, normocephalic Eye exam: PRESENT: conjunctiva pink, EOMI, PERRLA. ABSENT: scleral icterus Neck exam: ABSENT: carotid bruit, JVD, lymphadenopathy, thyromegaly Respiratory exam: PRESENT: clear to auscultation jenaro. ABSENT: rales, rhonchi, wheezes Cardiovascular exam: PRESENT: RRR. ABSENT: diastolic murmur, rubs, systolic murmur GI/Abdominal exam: PRESENT: tenderness - in the right lower quadrant with guarding. There is no obvious hernia that is palpable Full range of motion of the hip Rectal exam: PRESENT: deferred Neurological exam: PRESENT: alert, awake, oriented to person, oriented to place , oriented to time, oriented to situation, CN II-XII grossly intact. ABSENT: motor sensory deficit Results Laboratory Results: 06/15/16 06:20 06/15/16 06:20 06/15/16 06/15/16 06:20 06:20 WBC 10.5 RBC 3.25 L Hgb 9.5 L Hct 27.9 L MCV 86 MCH 29.4 MCHC 34.2 RDW 17.1 H Plt Count 330 Seg Neutrophils % 70.3 Lymphocytes % 16.3 Monocytes % 11.8 Eosinophils % 0.5 Basophils % 1.1 Absolute Neutrophils 7.4 Absolute Lymphocytes 1.7 Absolute Monocytes 1.2 Absolute Eosinophils 0.1 Absolute Basophils 0.1 Sodium 142.8 Potassium 3.4 L Chloride 101 Carbon Dioxide 30 Anion Gap 12 BUN 17 Creatinine 1.35 H Est GFR ( Amer) 49 L Est GFR (Non-Af Amer) 40 L Glucose 77 Calcium 9.3 Magnesium 2.0 05/30/16 05/30/16 05/31/16 04:00 04:00 05:45 Creatine Kinase 110 CK-MB (CK-2) 3.10 Troponin I 0.270 0.136 Impressions: Abdomen Ultrasound 05/30/16 00:00 IMPRESSION: No gallstones are identified. There is thickening of the gallbladder ko and there is pericholecystic fluid. This was present on the previous CT scan. The possibility of an acalculous cholecystitis should be considered. Other findings as noted above Abdomen/Pelvis CT 05/30/16 01:00 IMPRESSION: There is relative increased density within the gallbladder lumen which could represent biliary sludge. Pericholecystic fluid is identified in the possibility of cholecystitis should be considered. Abdominal ultrasound may be of value for confirmation if clinically warranted. Bibasilar densities representing small bilateral pleural effusions with associated airspace consolidation which could represent atelectatic changes or basilar infiltrates. Other findings as noted above Hepatobiliary Scan Nuclear Medicine 05/31/16 00:00 IMPRESSION: NO CYSTIC OR COMMON DUCT OBSTRUCTION. KUB X-Ray 06/02/16 08:01 IMPRESSION: Allowing for paucity of bowel gas, negative study. Limited as above. Chest X-Ray 06/05/16 06:00 IMPRESSION: Small bilateral pleural effusions with pulmonary vascular congestion. Question mild perihilar edema. Findings are similar compared to . Persistent dense consolidation left lower lobe atelectasis versus pneumonia. Assessment & Plan - Diagnosis (1) Acute acalculous cholecystitis Is this a current diagnosis for this admission?: Yes (2) Acute respiratory failure Qualifiers: Respiratory failure complication: hypoxia Qualified Code(s): J96.01 - Acute respiratory failure with hypoxia Is this a current diagnosis for this admission?: Yes (3) Hypokalemia Is this a current diagnosis for this admission?: Yes (4) LLL pneumonia Qualifiers: Pneumonia type: due to unspecified organism Qualified Code(s): J18.1 - Lobar pneumonia, unspecified organism Is this a current diagnosis for this admission?: Yes (5) Non-ST elevation myocardial infarction (NSTEMI), type 2 Is this a current diagnosis for this admission?: Yes (6) Septic shock Is this a current diagnosis for this admission?: No (7) Hypoalbuminemia Is this a current diagnosis for this admission?: Yes (8) Acute renal failure Qualifiers: Acute renal failure type: unspecified Qualified Code(s): N17.9 - Acute kidney failure, unspecified Is this a current diagnosis for this admission?: Yes (9) Phantom pain Is this a current diagnosis for this admission?: Yes (10) Chronic anticoagulation Is this a current diagnosis for this admission?: Yes (11) Pain, abdominal, RLQ Is this a current diagnosis for this admission?: YesPlan: Etiology is unclear it could be just an acute tendinitis; or muscle strain We will order a CT abdomen and pelvis without contrast to exclude an incarcerated hernia Patient is about to be discharged home we will reevaluate after the test - Time Time Spent with patient: 25-34 minutes
[2016-06-15] MEDS: FONDAPARINUX SODIUM INJ 7.5 MG/0.6 ML DISP.SYRIN SUBCUT SCH (10:02)
[2016-06-15] MEDS: PREDNISONE 10 MG TABLET PO SCH (10:04)
[2016-06-15] MEDS: OXYCODONE HCL SR 10 MG TABLET PO SCH ×2 (10:04→22:30)
[2016-06-15] MEDS: PREDNISONE 20 MG TABLET PO SCH (10:04)
[2016-06-15] MEDS: METOPROLOL TARTRATE 25 MG TABLET PO SCH ×2 (10:04→22:30)
[2016-06-15] MEDS: LISINOPRIL 5 MG TABLET PO SCH (10:05)
[2016-06-15] MEDS: AZATHIOPRINE 50 MG TABLET PO SCH (10:05)
[2016-06-15] MEDS: ONDANSETRON HCL INJ/PF 4 MG/2 ML SDV IV PRN (10:10)
--- NOTE | 2016-06-15 11:03 | Progress Note ---
Provider Note Provider Note: 06/15/2016 CT abdomen and pelvis shows a retroperitoneal bleed ; we will stop Arixtra We will speak with Dr. Pacheco patient may need an IVC filter
[2016-06-15] MEDS: POTASSIUM CHLORIDE 10 MEQ TABLET.SA PO SCH (12:53)
[2016-06-15] MEDS: BUTALB/ACETAMINOPHEN/CAFFEINE 1 TAB EACH PO PRN (12:55)
[2016-06-15 15:55] LABS: HEMATOCRIT 29.1 % (36.0-47.0); HEMOGLOBIN 9.4 g/dL (12.0-15.5); HGB HCT DIFFERENCE -0.9; MEAN CORPUSCULAR HGB CONC 32.3 g/dL (32.0-36.0); MEAN CORPUSCULAR VOLUME 87 fl (80-97); RED BLOOD COUNT 3.36 10^6/uL (3.72-5.28); RED CELL DISTRIBUTION WIDTH 17.2 % (11.5-14.0); WHITE BLOOD COUNT 13.5 10^3/uL (4.0-10.5)
--- NOTE | 2016-06-15 18:15 | PDOC CONSULTATION ---
Consultation Consult Date: 06/15/16 Attending physician:: ARNIE ROSA Consult reason:: Patient with known history of hypercoagulable state with recurrent thrombosis both arterial and venous, now with retroperitoneal hematoma History of Present Illness Admission Date/PCP: 05/29/16 21:13 WAI TIRADO DO Patient complains of: Hematoma, abdominal pain, recurrent thrombosis History of Present Illness: 60-year-old female well known to our hematology clinic, who is been in for multiple issues over the last few months. She does have known Crohn's disease, as well as with known recurrent iron deficiency anemia. 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 On last hospitalization, she presented with a pneumonia and she was in for several days. I taken her off blood thinners previously because she came in with a GI bleed on Xarelto, she had the GI bleed because of the Crohn's disease and recurrent bleeding from that standpoint. Then she presented again with a pneumonia was treated, at the time she was off blood thinners, and she developed left lower extremity DVT. We then placed her on Arixtra. And she was then discharged home. She came back in approximately 2 weeks ago with fever, chills, was found to be in severe sepsis, hypoxic and was intubated. She was on pressors for short. At time. She was then extubated. But recently was complaining of some right lower quadrant pain. She had CT of the abdomen pelvis done, this indicated a right retroperitoneal hematoma. The Arixtra was discontinued today. Past Medical History Cardiac Medical History: Reports: Hypertension Denies: Congestive Heart Failure, Hyperlipidema, Pulmonary Embolism Pulmonary Medical History: Reports: Asthma Denies: Chronic Obstructive Pulmonary Disease (COPD) Neurological Medical History: Reports: Migraine Denies: Seizures Endocrine Medical History: Reports: Diabetes Mellitus Type 1 Denies: Diabetes Mellitus Type 2, Hyperthyroidism, Hypothyroidism GI Medical History: Reports: Crohn's Disease Denies: Cirrhosis, Hepatitis Psychiatric Medical History: Reports: Depression Hematology: Reports: Anemia Past Surgical History Past Surgical History: Reports: Section, Orthopedic Surgery - R knee; R shoulder; L BKA, Tonsillectomy Denies: Hysterectomy Social History Smoking Status: Smoker,Current Status Unk Cigarettes Packs Per Day: 1 Frequency of Alcohol Use: None Hx Recreational Drug Use: No Drugs: None Hx Prescription Drug Abuse: No - Advance Directive Resuscitation Status: Full Code Family History Family History: None Parental Family History Reviewed: Yes Children Family History Reviewed: Yes Sibling(s) Family History Reviewed.: Yes Medication/Allergy Home Medications: Adalimumab [Humira Pen] 1 syr INJ Q10D 05/30/16 Albuterol Sulfate [Ventolin HFA MDI 18 GM] 2 puff IH Q4HP PRN 05/30/16 Amlodipine Besylate [Norvasc 5 mg Tablet] 5 mg PO BID 05/30/16 Fondaparinux Sodium [Arixtra] 1 syr INJ DAILY 05/30/16 Hydromorphone HCl [Dilaudid] 4 mg PO Q4HP PRN 05/30/16 Insulin Aspart [Novolog Flexpen] 4 unit SQ BID 05/30/16 Insulin Glargine,Hum.rec.anlog [Lantus Solostar] 5 units SQ QPM 05/30/16 Montelukast Sodium [Singulair 10 mg Tablet] 10 mg PO QPM 05/30/16 Oxycodone HCl [Oxycontin] 20 mg PO Q8 05/30/16 Pantoprazole Sodium [Protonix] 40 mg PO BID 05/30/16 Promethazine HCl [Phenergan 25 mg Tablet] 1 tab PO Q4HP PRN 05/30/16 Ranitidine HCl [Zantac 150 mg Tablet] 150 mg PO DAILY 05/30/16 Allergies/Adverse Reactions: Sulfa (Sulfonamide Antibiotics) Allergy (Verified 05/04/16 04:41) Review of Systems Constitutional: ABSENT: chills, fever(s), headache(s), weight gain, weight loss Eyes: ABSENT: visual disturbances Ears: ABSENT: hearing changes Cardiovascular: ABSENT: chest pain, dyspnea on exertion, edema, orthropnea, palpitations Respiratory: ABSENT: cough, hemoptysis Gastrointestinal: ABSENT: abdominal pain, constipation, diarrhea, hematemesis, hematochezia, nausea, vomiting Genitourinary: ABSENT: dysuria, hematuria Musculoskeletal: ABSENT: joint swelling Integumentary: ABSENT: rash, wounds Neurological: ABSENT: abnormal gait, abnormal speech, confusion, dizziness, focal weakness, syncope Psychiatric: ABSENT: anxiety, depression, homidical ideation, suicidal ideation Endocrine: ABSENT: cold intolerance, heat intolerance, polydipsia, polyuria Hematologic/Lymphatic: ABSENT: easy bleeding, easy bruising Physical Exam Vital Signs: Temp Pulse Resp BP Pulse Ox 99.0 F 78 16 138/74 H 93 06/15/16 12:02 06/15/16 14:00 06/15/16 12:02 06/15/16 12:02 06/15/16 12:02 Intake & Output 06/14/16 06/15/16 06/16/16 06:59 06:59 06:59 Intake Total 779 989 341 Output Total 725 Balance 54 989 341 Weight 58.3 kg 59.1 kg Results Laboratory Results: 06/15/16 15:30 06/15/16 06:20 06/15/16 06/15/16 06/15/16 06:20 06:20 15:30 WBC 10.5 13.5 H RBC 3.25 L 3.36 L Hgb 9.5 L 9.4 L Hct 27.9 L 29.1 L MCV 86 87 MCH 29.4 28.0 MCHC 34.2 32.3 RDW 17.1 H 17.2 H Plt Count 330 328 Seg Neutrophils % 70.3 Lymphocytes % 16.3 Monocytes % 11.8 Eosinophils % 0.5 Basophils % 1.1 Absolute Neutrophils 7.4 Absolute Lymphocytes 1.7 Absolute Monocytes 1.2 Absolute Eosinophils 0.1 Absolute Basophils 0.1 Sodium 142.8 Potassium 3.4 L Chloride 101 Carbon Dioxide 30 Anion Gap 12 BUN 17 Creatinine 1.35 H Est GFR ( Amer) 49 L Est GFR (Non-Af Amer) 40 L Glucose 77 Calcium 9.3 Magnesium 2.0 05/30/16 05/30/16 05/31/16 04:00 04:00 05:45 Creatine Kinase 110 CK-MB (CK-2) 3.10 Troponin I 0.270 0.136 Impressions: Abdomen Ultrasound 05/30/16 00:00 IMPRESSION: No gallstones are identified. There is thickening of the gallbladder ko and there is pericholecystic fluid. This was present on the previous CT scan. The possibility of an acalculous cholecystitis should be considered. Other findings as noted above Hepatobiliary Scan Nuclear Medicine 05/31/16 00:00 IMPRESSION: NO CYSTIC OR COMMON DUCT OBSTRUCTION. KUB X-Ray 06/02/16 08:01 IMPRESSION: Allowing for paucity of bowel gas, negative study. Limited as above. Chest X-Ray 06/05/16 06:00 IMPRESSION: Small bilateral pleural effusions with pulmonary vascular congestion. Question mild perihilar edema. Findings are similar compared to . Persistent dense consolidation left lower lobe atelectasis versus pneumonia. Abdomen/Pelvis CT 06/15/16 09:55 IMPRESSION: Right iliacus muscle hematoma Assessment & Plan - Diagnosis (1) Retroperitoneal hematoma Is this a current diagnosis for this admission?: YesPlan: Unfortunately likely related to the Arixtra, we will need to hold the Arixtra and monitor. (2) Leg DVT (deep venous thromboembolism), acute Qualifiers: Laterality: left Qualified Code(s): I82.402 - Acute embolism and thrombosis of unspecified deep veins of left lower extremity Is this a current diagnosis for this admission?: YesPlan: She does have known left leg DVT, recent ultrasound however is negative. She is certainly hypercoagulable, we'll have high risk of repeat thrombosis but we will need to hold anticoagulation given the retroperitoneal hematoma. I would prefer holding it for one to [address] to ensure resolution of hematoma. We then as an outpatient can decide whether or not to reinitiate anticoagulation. (3) Iron deficiency anemia due to chronic blood loss Is this a current diagnosis for this admission?: YesPlan: Patient with known Iron deficiency anemia, I have given her IV iron in the past , we will need to monitor as outpatient. - Time Time Spent: Greater than 70 Minutes Critical Time spent with patient: 35 or more minutes - Inpatient Certification Based on my medical assessment, after consideration of the patient's comorbidities, presenting symptoms, or acuity I expect that the services needed warrant INPATIENT care.: Yes I certify that my determination is in accordance with my understanding of Medicare's requirements for reasonable and necessary INPATIENT services [42 CFR 412.3e].: Yes Medical Necessity: Need For Continuous Telemetry Monitoring, Risk of Complication if Not Cared For in Hospital
[2016-06-15 20:49] LABS: HEMATOCRIT 29.1 % (36.0-47.0); HEMOGLOBIN 9.5 g/dL (12.0-15.5); HGB HCT DIFFERENCE -0.6; MEAN CORPUSCULAR HEMOGLOBIN 28.2 pg (27.0-33.4); MEAN CORPUSCULAR HGB CONC 32.7 g/dL (32.0-36.0); MEAN CORPUSCULAR VOLUME 86 fl (80-97); RED BLOOD COUNT 3.37 10^6/uL (3.72-5.28); RED CELL DISTRIBUTION WIDTH 17.2 % (11.5-14.0); WHITE BLOOD COUNT 12.6 10^3/uL (4.0-10.5)
[2016-06-15] MEDS: ASPIRIN 81 MG TABLET, ENT COATED PO SCH (22:30)
[2016-06-15] MEDS: ATORVASTATIN CALCIUM 20 MG TABLET PO SCH (22:30)
[2016-06-16] MEDS: OXYCODONE HCL IR 5 MG TABLET PO PRN ×3 (00:35→11:51)
[2016-06-16 02:57] LABS: HEMATOCRIT 28.5 % (36.0-47.0); HEMOGLOBIN 9.3 g/dL (12.0-15.5); HGB HCT DIFFERENCE -0.6; MEAN CORPUSCULAR HEMOGLOBIN 28.3 pg (27.0-33.4); MEAN CORPUSCULAR HGB CONC 32.7 g/dL (32.0-36.0); MEAN CORPUSCULAR VOLUME 87 fl (80-97); RED BLOOD COUNT 3.29 10^6/uL (3.72-5.28); RED CELL DISTRIBUTION WIDTH 17.2 % (11.5-14.0); WHITE BLOOD COUNT 11.8 10^3/uL (4.0-10.5)
[2016-06-16 07:42] LABS: ANION GAP 10 (5-19); BLOOD UREA NITROGEN 17 mg/dL (7-20); CALCIUM 9.2 mg/dL (8.4-10.2); CARBON DIOXIDE 32 mmol/L (22-30); CHLORIDE 100 mmol/L (98-107); CREATININE RESULT 1.28 mg/dL (0.52-1.25); GLUCOSE 80 mg/dL (75-110); POTASSIUM 3.5 mmol/L (3.6-5.0); SODIUM 141.6 mmol/L (137-145)
--- NOTE | 2016-06-16 08:32 | PDOC PROGRESS REPORT ---
Subjective Progress Note for:: 06/16/16 Subjective:: No acute events overnight patient with still quite a bit of pain Physical Exam Vital Signs: Temp Pulse Resp BP Pulse Ox 101.0 F H 80 20 125/70 93 06/16/16 04:58 06/16/16 04:58 06/16/16 04:58 06/16/16 04:58 06/16/16 04:58 Intake & Output 06/15/16 06/16/16 06/17/16 06:59 06:59 06:59 Intake Total 989 1718 Balance 989 1718 Weight 59.1 kg 58.5 kg General appearance: PRESENT: no acute distress, well-developed, well-nourished Head exam: PRESENT: atraumatic, normocephalic Eye exam: PRESENT: conjunctiva pink, EOMI, PERRLA. ABSENT: scleral icterus Ear exam: PRESENT: normal external ear exam Mouth exam: PRESENT: moist, tongue midline Neck exam: ABSENT: carotid bruit, JVD, lymphadenopathy, thyromegaly Respiratory exam: PRESENT: clear to auscultation jenaro. ABSENT: rales, rhonchi, wheezes Cardiovascular exam: PRESENT: RRR. ABSENT: diastolic murmur, rubs, systolic murmur Pulses: PRESENT: normal dorsalis pedis pul Vascular exam: PRESENT: normal capillary refill GI/Abdominal exam: PRESENT: normal bowel sounds, soft. ABSENT: distended, guarding, mass, organolmegaly, rebound, tenderness Rectal exam: PRESENT: deferred Extremities exam: PRESENT: full ROM. ABSENT: calf tenderness, clubbing, pedal edema Neurological exam: PRESENT: alert, awake, oriented to person, oriented to place , oriented to time, oriented to situation, CN II-XII grossly intact. ABSENT: motor sensory deficit Psychiatric exam: PRESENT: appropriate affect, normal mood. ABSENT: homicidal ideation, suicidal ideation Skin exam: PRESENT: dry, intact, warm. ABSENT: cyanosis, rash Results Laboratory Results: 06/16/16 02:30 06/16/16 06:45 06/15/16 06/15/16 06/16/16 15:30 20:40 02:30 WBC 13.5 H 12.6 H 11.8 H RBC 3.36 L 3.37 L 3.29 L Hgb 9.4 L 9.5 L 9.3 L Hct 29.1 L 29.1 L 28.5 L MCV 87 86 87 MCH 28.0 28.2 28.3 MCHC 32.3 32.7 32.7 RDW 17.2 H 17.2 H 17.2 H Plt Count 328 340 330 Sodium Potassium Chloride Carbon Dioxide Anion Gap BUN Creatinine Est GFR ( Amer) Est GFR (Non-Af Amer) Glucose Calcium 06/16/16 06:45 WBC RBC Hgb Hct MCV MCH MCHC RDW Plt Count Sodium 141.6 Potassium 3.5 L Chloride 100 Carbon Dioxide 32 H Anion Gap 10 BUN 17 Creatinine 1.28 H Est GFR ( Amer) 52 L Est GFR (Non-Af Amer) 43 L Glucose 80 Calcium 9.2 05/30/16 05/30/16 05/31/16 04:00 04:00 05:45 Creatine Kinase 110 CK-MB (CK-2) 3.10 Troponin I 0.270 0.136 Impressions: Abdomen Ultrasound 05/30/16 00:00 IMPRESSION: No gallstones are identified. There is thickening of the gallbladder ko and there is pericholecystic fluid. This was present on the previous CT scan. The possibility of an acalculous cholecystitis should be considered. Other findings as noted above Hepatobiliary Scan Nuclear Medicine 05/31/16 00:00 IMPRESSION: NO CYSTIC OR COMMON DUCT OBSTRUCTION. KUB X-Ray 06/02/16 08:01 IMPRESSION: Allowing for paucity of bowel gas, negative study. Limited as above. Chest X-Ray 06/05/16 06:00 IMPRESSION: Small bilateral pleural effusions with pulmonary vascular congestion. Question mild perihilar edema. Findings are similar compared to . Persistent dense consolidation left lower lobe atelectasis versus pneumonia. Abdomen/Pelvis CT 06/15/16 09:55 IMPRESSION: Right iliacus muscle hematoma Assessment & Plan - Diagnosis (1) Retroperitoneal hematoma Is this a current diagnosis for this admission?: YesPlan: Continue off anticoagulation, hemoglobin is been stable, suggested increase in pain medication, hospitalists will order this. (2) Leg DVT (deep venous thromboembolism), acute Qualifiers: Laterality: left Qualified Code(s): I82.402 - Acute embolism and thrombosis of unspecified deep veins of left lower extremity Is this a current diagnosis for this admission?: YesPlan: Hold on anticoagulation (3) Iron deficiency anemia due to chronic blood loss Is this a current diagnosis for this admission?: YesPlan: Hemoglobin stable continue to monitor recent iron infusion given - Time Time Spent with patient: 25-34 minutes Critical Time spent with patient: 25-34 minutes
[2016-06-16] MEDS: LISINOPRIL 5 MG TABLET PO SCH (09:00)
[2016-06-16] MEDS: PREDNISONE 10 MG TABLET PO SCH (09:02)
[2016-06-16] MEDS: METOPROLOL TARTRATE 25 MG TABLET PO SCH ×2 (09:03→22:42)
[2016-06-16] MEDS: PREDNISONE 20 MG TABLET PO SCH (09:03)
[2016-06-16] MEDS: OXYCODONE HCL SR 10 MG TABLET PO SCH ×2 (09:03→22:42)
[2016-06-16] MEDS: ASPIRIN 81 MG TABLET, ENT COATED PO SCH (09:04)
[2016-06-16] MEDS: AZATHIOPRINE 50 MG TABLET PO SCH (09:04)
[2016-06-16] MEDS: HYDROMORPHONE HCL INJ/PF 2 MG/ML AMPULE IV PRN ×2 (11:52→22:36)
[2016-06-16] MEDS: POTASSIUM CHLORIDE 10 MEQ TABLET.SA PO SCH (11:55)
--- NOTE | 2016-06-16 12:32 | PDOC PROGRESS REPORT ---
Subjective Progress Note for:: 06/16/16 Subjective:: Patient is still complaining of severe back pain right lower quadrant pain Yesterday she was diagnosed of retroperitoneal bleed She is extremely stable otherwise H&H is stable Anticoagulation has been discontinued and case was discussed with Dr. Daley Physical Exam Vital Signs: Temp Pulse Resp BP Pulse Ox 98.3 F 81 19 140/85 H 93 06/16/16 07:54 06/16/16 07:54 06/16/16 07:54 06/16/16 07:54 06/16/16 07:54 Intake & Output 06/15/16 06/16/16 06/17/16 00:59 00:59 00:59 Intake Total 852 1480 437 Output Total 325 Balance 527 1480 437 Weight 59.1 kg 58.5 kg General appearance: PRESENT: no acute distress, well-developed, well-nourished Head exam: PRESENT: atraumatic, normocephalic Eye exam: PRESENT: conjunctiva pink, EOMI, PERRLA. ABSENT: scleral icterus Ear exam: PRESENT: normal external ear exam Mouth exam: PRESENT: moist, tongue midline Neck exam: ABSENT: carotid bruit, JVD, lymphadenopathy, thyromegaly Respiratory exam: PRESENT: clear to auscultation jenaro. ABSENT: rales, rhonchi, wheezes Cardiovascular exam: PRESENT: RRR. ABSENT: diastolic murmur, rubs, systolic murmur Pulses: PRESENT: normal dorsalis pedis pul Vascular exam: PRESENT: normal capillary refill GI/Abdominal exam: PRESENT: normal bowel sounds, soft. ABSENT: distended, guarding, mass, organolmegaly, rebound, tenderness Rectal exam: PRESENT: deferred Extremities exam: PRESENT: full ROM, other - Left AKA. ABSENT: calf tenderness , clubbing, pedal edema Neurological exam: PRESENT: alert, awake, oriented to person, oriented to place , oriented to time, oriented to situation, CN II-XII grossly intact. ABSENT: motor sensory deficit Psychiatric exam: PRESENT: appropriate affect, normal mood. ABSENT: homicidal ideation, suicidal ideation Skin exam: PRESENT: dry, intact, warm. ABSENT: cyanosis, rash Results Laboratory Results: 06/16/16 02:30 06/16/16 06:45 06/15/16 06/15/16 06/16/16 15:30 20:40 02:30 WBC 13.5 H 12.6 H 11.8 H RBC 3.36 L 3.37 L 3.29 L Hgb 9.4 L 9.5 L 9.3 L Hct 29.1 L 29.1 L 28.5 L MCV 87 86 87 MCH 28.0 28.2 28.3 MCHC 32.3 32.7 32.7 RDW 17.2 H 17.2 H 17.2 H Plt Count 328 340 330 Sodium Potassium Chloride Carbon Dioxide Anion Gap BUN Creatinine Est GFR ( Amer) Est GFR (Non-Af Amer) Glucose Calcium 06/16/16 06:45 WBC RBC Hgb Hct MCV MCH MCHC RDW Plt Count Sodium 141.6 Potassium 3.5 L Chloride 100 Carbon Dioxide 32 H Anion Gap 10 BUN 17 Creatinine 1.28 H Est GFR ( Amer) 52 L Est GFR (Non-Af Amer) 43 L Glucose 80 Calcium 9.2 05/30/16 05/30/16 05/31/16 04:00 04:00 05:45 Creatine Kinase 110 CK-MB (CK-2) 3.10 Troponin I 0.270 0.136 Impressions: Abdomen Ultrasound 05/30/16 00:00 IMPRESSION: No gallstones are identified. There is thickening of the gallbladder ko and there is pericholecystic fluid. This was present on the previous CT scan. The possibility of an acalculous cholecystitis should be considered. Other findings as noted above Hepatobiliary Scan Nuclear Medicine 05/31/16 00:00 IMPRESSION: NO CYSTIC OR COMMON DUCT OBSTRUCTION. KUB X-Ray 06/02/16 08:01 IMPRESSION: Allowing for paucity of bowel gas, negative study. Limited as above. Chest X-Ray 06/05/16 06:00 IMPRESSION: Small bilateral pleural effusions with pulmonary vascular congestion. Question mild perihilar edema. Findings are similar compared to . Persistent dense consolidation left lower lobe atelectasis versus pneumonia. Abdomen/Pelvis CT 06/15/16 09:55 IMPRESSION: Right iliacus muscle hematoma Assessment & Plan - Diagnosis (1) Acute acalculous cholecystitis Is this a current diagnosis for this admission?: Yes (2) Acute respiratory failure Qualifiers: Respiratory failure complication: hypoxia Qualified Code(s): J96.01 - Acute respiratory failure with hypoxia Is this a current diagnosis for this admission?: Yes (3) Hypokalemia Is this a current diagnosis for this admission?: Yes (4) LLL pneumonia Qualifiers: Pneumonia type: due to unspecified organism Qualified Code(s): J18.1 - Lobar pneumonia, unspecified organism Is this a current diagnosis for this admission?: Yes (5) Non-ST elevation myocardial infarction (NSTEMI), type 2 Is this a current diagnosis for this admission?: Yes (6) Septic shock Is this a current diagnosis for this admission?: No (7) Hypoalbuminemia Is this a current diagnosis for this admission?: Yes (8) Acute renal failure Qualifiers: Acute renal failure type: unspecified Qualified Code(s): N17.9 - Acute kidney failure, unspecified Is this a current diagnosis for this admission?: Yes (9) Phantom pain Is this a current diagnosis for this admission?: Yes (10) Chronic anticoagulation Is this a current diagnosis for this admission?: YesPlan: Anti-phospholipid antibody syndrome Arixtra was discontinued Patient to follow-up as an outpatient is Dr. Daley (11) Pain, abdominal, RLQ Is this a current diagnosis for this admission?: Yes (12) Retroperitoneal bleed Is this a current diagnosis for this admission?: YesPlan: Prescribed some Dilaudid for pain Follow-up H&H Patient may be discharged on Tuesday if stable Arixtra was discontinued - Time Time Spent with patient: Patient may be transferred to medical floor Discharge on Tuesday if stable Repeat H&H in a.m. Time Spent with patient: 25-34 minutes
[2016-06-16] MEDS: INSULIN LISPRO 100 UNIT/ML 3 ML VIAL SUBCUT PRN (16:59)
[2016-06-16 20:31] LABS: HEMATOCRIT 28.2 % (36.0-47.0); HEMOGLOBIN 9.2 g/dL (12.0-15.5); HGB HCT DIFFERENCE -0.6; MEAN CORPUSCULAR HEMOGLOBIN 28.2 pg (27.0-33.4); MEAN CORPUSCULAR HGB CONC 32.6 g/dL (32.0-36.0); MEAN CORPUSCULAR VOLUME 87 fl (80-97); RED BLOOD COUNT 3.26 10^6/uL (3.72-5.28); RED CELL DISTRIBUTION WIDTH 17.6 % (11.5-14.0); WHITE BLOOD COUNT 13.3 10^3/uL (4.0-10.5)
[2016-06-16] MEDS: ATORVASTATIN CALCIUM 20 MG TABLET PO SCH (22:43)
[2016-06-16] MEDS: ONDANSETRON HCL INJ/PF 4 MG/2 ML SDV IV PRN (22:50)
[2016-06-17] MEDS: HYDROMORPHONE HCL INJ/PF 2 MG/ML AMPULE IV PRN ×5 (02:45→21:30)
[2016-06-17] MEDS: OXYCODONE HCL IR 5 MG TABLET PO PRN ×5 (02:45→21:30)
[2016-06-17 05:59] LABS: HEMATOCRIT 27.1 % (36.0-47.0); HEMOGLOBIN 9.1 g/dL (12.0-15.5); HGB HCT DIFFERENCE 0.2; MEAN CORPUSCULAR HEMOGLOBIN 28.8 pg (27.0-33.4); MEAN CORPUSCULAR HGB CONC 33.5 g/dL (32.0-36.0); MEAN CORPUSCULAR VOLUME 86 fl (80-97); RED BLOOD COUNT 3.15 10^6/uL (3.72-5.28); RED CELL DISTRIBUTION WIDTH 17.3 % (11.5-14.0); WHITE BLOOD COUNT 12.7 10^3/uL (4.0-10.5)
[2016-06-17 06:12] LABS: ANION GAP 10 (5-19); BLOOD UREA NITROGEN 20 mg/dL (7-20); CALCIUM 9.1 mg/dL (8.4-10.2); CARBON DIOXIDE 33 mmol/L (22-30); CHLORIDE 100 mmol/L (98-107); CREATININE RESULT 1.25 mg/dL (0.52-1.25); GLUCOSE 80 mg/dL (75-110); POTASSIUM 3.6 mmol/L (3.6-5.0); SODIUM 142.7 mmol/L (137-145)
--- NOTE | 2016-06-17 07:42 | PDOC PROGRESS REPORT ---
Subjective Progress Note for:: 06/17/16 Subjective:: Pain better today, change in pain meds helped, will try to get up today on wheelchair Physical Exam Vital Signs: Temp Pulse Resp BP Pulse Ox 98.4 F 83 20 99/60 L 92 06/17/16 03:26 06/17/16 03:26 06/17/16 03:26 06/17/16 03:26 06/17/16 03:26 Intake & Output 06/16/16 06/17/16 06/18/16 06:59 06:59 06:59 Intake Total 1718 1402 Balance 1718 1402 Weight 58.5 kg 58.4 kg General appearance: PRESENT: no acute distress, well-developed, well-nourished Head exam: PRESENT: atraumatic, normocephalic Eye exam: PRESENT: conjunctiva pink, EOMI, PERRLA. ABSENT: scleral icterus Ear exam: PRESENT: normal external ear exam Mouth exam: PRESENT: moist, tongue midline Neck exam: ABSENT: carotid bruit, JVD, lymphadenopathy, thyromegaly Respiratory exam: PRESENT: clear to auscultation jenaro. ABSENT: rales, rhonchi, wheezes Cardiovascular exam: PRESENT: RRR. ABSENT: diastolic murmur, rubs, systolic murmur Pulses: PRESENT: normal dorsalis pedis pul Vascular exam: PRESENT: normal capillary refill GI/Abdominal exam: PRESENT: normal bowel sounds, soft. ABSENT: distended, guarding, mass, organolmegaly, rebound, tenderness Rectal exam: PRESENT: deferred Extremities exam: PRESENT: full ROM. ABSENT: calf tenderness, clubbing, pedal edema Neurological exam: PRESENT: alert, awake, oriented to person, oriented to place , oriented to time, oriented to situation, CN II-XII grossly intact. ABSENT: motor sensory deficit Psychiatric exam: PRESENT: appropriate affect, normal mood. ABSENT: homicidal ideation, suicidal ideation Skin exam: PRESENT: dry, intact, warm. ABSENT: cyanosis, rash Results Laboratory Results: 06/17/16 05:39 06/17/16 05:39 06/16/16 06/16/16 06/17/16 06:45 20:15 05:39 WBC 13.3 H RBC 3.26 L Hgb 9.2 L Hct 28.2 L MCV 87 MCH 28.2 MCHC 32.6 RDW 17.6 H Plt Count 335 Sodium 141.6 142.7 Potassium 3.5 L 3.6 Chloride 100 100 Carbon Dioxide 32 H 33 H Anion Gap 10 10 BUN 17 20 Creatinine 1.28 H 1.25 Est GFR ( Amer) 52 L 53 L Est GFR (Non-Af Amer) 43 L 44 L Glucose 80 80 Calcium 9.2 9.1 06/17/16 05:39 WBC 12.7 H RBC 3.15 L Hgb 9.1 L Hct 27.1 L MCV 86 MCH 28.8 MCHC 33.5 RDW 17.3 H Plt Count 348 Sodium Potassium Chloride Carbon Dioxide Anion Gap BUN Creatinine Est GFR ( Amer) Est GFR (Non-Af Amer) Glucose Calcium 05/30/16 05/30/16 05/31/16 04:00 04:00 05:45 Creatine Kinase 110 CK-MB (CK-2) 3.10 Troponin I 0.270 0.136 Impressions: Abdomen Ultrasound 05/30/16 00:00 IMPRESSION: No gallstones are identified. There is thickening of the gallbladder ko and there is pericholecystic fluid. This was present on the previous CT scan. The possibility of an acalculous cholecystitis should be considered. Other findings as noted above Hepatobiliary Scan Nuclear Medicine 05/31/16 00:00 IMPRESSION: NO CYSTIC OR COMMON DUCT OBSTRUCTION. KUB X-Ray 06/02/16 08:01 IMPRESSION: Allowing for paucity of bowel gas, negative study. Limited as above. Chest X-Ray 06/05/16 06:00 IMPRESSION: Small bilateral pleural effusions with pulmonary vascular congestion. Question mild perihilar edema. Findings are similar compared to . Persistent dense consolidation left lower lobe atelectasis versus pneumonia. Abdomen/Pelvis CT 06/15/16 09:55 IMPRESSION: Right iliacus muscle hematoma Assessment & Plan - Diagnosis (1) Retroperitoneal hematoma Is this a current diagnosis for this admission?: YesPlan: Cont off anticoag. Hb stable thus far, monitor closely. Would recommend repeat imaging w/ CT NON CONTRAST A/P in next 2-3 days. (2) Leg DVT (deep venous thromboembolism), acute Qualifiers: Laterality: left Qualified Code(s): I82.402 - Acute embolism and thrombosis of unspecified deep veins of left lower extremity Is this a current diagnosis for this admission?: YesPlan: Hold on anticoag (3) Iron deficiency anemia due to chronic blood loss Is this a current diagnosis for this admission?: YesPlan: Hb stable, hold on tx for now - Time Time Spent with patient: 25-34 minutes Critical Time spent with patient: 25-34 minutes - Inpatient Certification Medical Necessity: Risk of Complication if Not Cared For in Hospital
--- NOTE | 2016-06-17 09:39 | PDOC PROGRESS REPORT ---
Subjective Progress Note for:: 06/17/16 Subjective:: Patient patient states she had does have some burning pain over the right thigh The back pain is better She's hemodynamically stable Physical Exam Vital Signs: Temp Pulse Resp BP Pulse Ox 97.9 F 80 16 112/65 92 06/17/16 07:08 06/17/16 07:08 06/17/16 07:08 06/17/16 07:08 06/17/16 07:08 Intake & Output 06/16/16 06/17/16 06/18/16 00:59 00:59 00:59 Intake Total 1480 1533 306 Balance 1480 1533 306 Weight 59.1 kg 58.5 kg 58.4 kg General appearance: PRESENT: no acute distress, well-developed, well-nourished Head exam: PRESENT: atraumatic, normocephalic Eye exam: PRESENT: conjunctiva pink, EOMI, PERRLA. ABSENT: scleral icterus Ear exam: PRESENT: normal external ear exam Mouth exam: PRESENT: moist, tongue midline Neck exam: ABSENT: carotid bruit, JVD, lymphadenopathy, thyromegaly Respiratory exam: PRESENT: clear to auscultation jenaro. ABSENT: rales, rhonchi, wheezes Cardiovascular exam: PRESENT: RRR. ABSENT: diastolic murmur, rubs, systolic murmur Pulses: PRESENT: normal dorsalis pedis pul Vascular exam: PRESENT: normal capillary refill GI/Abdominal exam: PRESENT: normal bowel sounds, soft. ABSENT: distended, guarding, mass, organolmegaly, rebound, tenderness Rectal exam: PRESENT: deferred Extremities exam: PRESENT: full ROM, other - Left AKA. ABSENT: calf tenderness , clubbing, pedal edema Neurological exam: PRESENT: alert, awake, oriented to person, oriented to place , oriented to time, oriented to situation, CN II-XII grossly intact. ABSENT: motor sensory deficit Psychiatric exam: PRESENT: appropriate affect, normal mood. ABSENT: homicidal ideation, suicidal ideation Skin exam: PRESENT: dry, intact, warm. ABSENT: cyanosis, rash Results Laboratory Results: 06/17/16 05:39 06/17/16 05:39 06/16/16 06/17/16 06/17/16 20:15 05:39 05:39 WBC 13.3 H 12.7 H RBC 3.26 L 3.15 L Hgb 9.2 L 9.1 L Hct 28.2 L 27.1 L MCV 87 86 MCH 28.2 28.8 MCHC 32.6 33.5 RDW 17.6 H 17.3 H Plt Count 335 348 Sodium 142.7 Potassium 3.6 Chloride 100 Carbon Dioxide 33 H Anion Gap 10 BUN 20 Creatinine 1.25 Est GFR ( Amer) 53 L Est GFR (Non-Af Amer) 44 L Glucose 80 Calcium 9.1 05/30/16 05/30/16 05/31/16 04:00 04:00 05:45 Creatine Kinase 110 CK-MB (CK-2) 3.10 Troponin I 0.270 0.136 Impressions: Abdomen Ultrasound 05/30/16 00:00 IMPRESSION: No gallstones are identified. There is thickening of the gallbladder ko and there is pericholecystic fluid. This was present on the previous CT scan. The possibility of an acalculous cholecystitis should be considered. Other findings as noted above Hepatobiliary Scan Nuclear Medicine 05/31/16 00:00 IMPRESSION: NO CYSTIC OR COMMON DUCT OBSTRUCTION. KUB X-Ray 06/02/16 08:01 IMPRESSION: Allowing for paucity of bowel gas, negative study. Limited as above. Chest X-Ray 06/05/16 06:00 IMPRESSION: Small bilateral pleural effusions with pulmonary vascular congestion. Question mild perihilar edema. Findings are similar compared to . Persistent dense consolidation left lower lobe atelectasis versus pneumonia. Abdomen/Pelvis CT 06/15/16 09:55 IMPRESSION: Right iliacus muscle hematoma Assessment & Plan - Diagnosis (1) Acute acalculous cholecystitis Is this a current diagnosis for this admission?: Yes (2) Acute respiratory failure Qualifiers: Respiratory failure complication: hypoxia Qualified Code(s): J96.01 - Acute respiratory failure with hypoxia Is this a current diagnosis for this admission?: Yes (3) Hypokalemia Is this a current diagnosis for this admission?: Yes (4) LLL pneumonia Qualifiers: Pneumonia type: due to unspecified organism Qualified Code(s): J18.1 - Lobar pneumonia, unspecified organism Is this a current diagnosis for this admission?: Yes (5) Non-ST elevation myocardial infarction (NSTEMI), type 2 Is this a current diagnosis for this admission?: Yes (6) Septic shock Is this a current diagnosis for this admission?: No (7) Hypoalbuminemia Is this a current diagnosis for this admission?: Yes (8) Acute renal failure Qualifiers: Acute renal failure type: unspecified Qualified Code(s): N17.9 - Acute kidney failure, unspecified Is this a current diagnosis for this admission?: Yes (9) Phantom pain Is this a current diagnosis for this admission?: Yes (10) Chronic anticoagulation Is this a current diagnosis for this admission?: Yes (11) Pain, abdominal, RLQ Is this a current diagnosis for this admission?: Yes (12) Retroperitoneal bleed Is this a current diagnosis for this admission?: Yes - Time Time Spent with patient: Patient is extremely stable Anticoagulation has been discontinued H&H remained stable We will keep the patient another 24 hours repeat a CBC in a.m. If CBC is stable patient will be discharged home with services Time Spent with patient: 25-34 minutes
[2016-06-17] MEDS: OXYCODONE HCL SR 10 MG TABLET PO SCH ×2 (10:21→21:30)
[2016-06-17] MEDS: LISINOPRIL 5 MG TABLET PO SCH (10:21)
[2016-06-17] MEDS: METOPROLOL TARTRATE 25 MG TABLET PO SCH ×2 (10:21→21:30)
[2016-06-17] MEDS: PREDNISONE 20 MG TABLET PO SCH (10:21)
[2016-06-17] MEDS: AZATHIOPRINE 50 MG TABLET PO SCH (10:23)
[2016-06-17] MEDS: POTASSIUM CHLORIDE 10 MEQ TABLET.SA PO SCH (11:18)
[2016-06-17] MEDS: INSULIN LISPRO 100 UNIT/ML 3 ML VIAL SUBCUT PRN (17:13)
[2016-06-17] MEDS: ONDANSETRON HCL INJ/PF 4 MG/2 ML SDV IV PRN (18:09)
[2016-06-17] MEDS: BUTALB/ACETAMINOPHEN/CAFFEINE 1 TAB EACH PO PRN (19:10)
[2016-06-17] MEDS: ATORVASTATIN CALCIUM 20 MG TABLET PO SCH (21:30)
[2016-06-17] MEDS: ASPIRIN 81 MG TABLET, ENT COATED PO SCH (21:34)
[2016-06-18] MEDS: OXYCODONE HCL IR 5 MG TABLET PO PRN ×3 (02:02→14:43)
[2016-06-18] MEDS: HYDROMORPHONE HCL INJ/PF 2 MG/ML AMPULE IV PRN ×4 (02:02→14:43)
[2016-06-18 05:54] LABS: HEMATOCRIT 27.3 % (36.0-47.0); HEMOGLOBIN 8.9 g/dL (12.0-15.5); HGB HCT DIFFERENCE -0.6; MEAN CORPUSCULAR HEMOGLOBIN 28.2 pg (27.0-33.4); MEAN CORPUSCULAR HGB CONC 32.5 g/dL (32.0-36.0); MEAN CORPUSCULAR VOLUME 87 fl (80-97); RED BLOOD COUNT 3.14 10^6/uL (3.72-5.28); RED CELL DISTRIBUTION WIDTH 17.3 % (11.5-14.0); WHITE BLOOD COUNT 11.7 10^3/uL (4.0-10.5)
[2016-06-18 06:14] LABS: ANION GAP 9 (5-19); BLOOD UREA NITROGEN 22 mg/dL (7-20); CALCIUM 9.4 mg/dL (8.4-10.2); CARBON DIOXIDE 33 mmol/L (22-30); CHLORIDE 100 mmol/L (98-107); CREATININE RESULT 1.18 mg/dL (0.52-1.25); GLUCOSE 74 mg/dL (75-110); POTASSIUM 3.7 mmol/L (3.6-5.0); SODIUM 142.3 mmol/L (137-145)
--- NOTE | 2016-06-18 08:40 | PDOC PROGRESS REPORT ---
Subjective Progress Note for:: 06/18/16 Subjective:: Patient doing better today, hemoglobin has been stable Physical Exam Vital Signs: Temp Pulse Resp BP Pulse Ox 98.4 F 80 20 115/65 96 06/18/16 08:00 06/18/16 08:00 06/18/16 08:00 06/18/16 08:00 06/18/16 08:00 Intake & Output 06/17/16 06/18/16 06/19/16 06:59 06:59 06:59 Intake Total 1402 889 Balance 1402 889 Weight 58.4 kg General appearance: PRESENT: no acute distress, well-developed, well-nourished Head exam: PRESENT: atraumatic, normocephalic Eye exam: PRESENT: conjunctiva pink, EOMI, PERRLA. ABSENT: scleral icterus Ear exam: PRESENT: normal external ear exam Mouth exam: PRESENT: moist, tongue midline Neck exam: ABSENT: carotid bruit, JVD, lymphadenopathy, thyromegaly Respiratory exam: PRESENT: clear to auscultation jenaro. ABSENT: rales, rhonchi, wheezes Cardiovascular exam: PRESENT: RRR. ABSENT: diastolic murmur, rubs, systolic murmur Pulses: PRESENT: normal dorsalis pedis pul Vascular exam: PRESENT: normal capillary refill GI/Abdominal exam: PRESENT: normal bowel sounds, soft. ABSENT: distended, guarding, mass, organolmegaly, rebound, tenderness Rectal exam: PRESENT: deferred Extremities exam: PRESENT: full ROM. ABSENT: calf tenderness, clubbing, pedal edema Neurological exam: PRESENT: alert, awake, oriented to person, oriented to place , oriented to time, oriented to situation, CN II-XII grossly intact. ABSENT: motor sensory deficit Psychiatric exam: PRESENT: appropriate affect, normal mood. ABSENT: homicidal ideation, suicidal ideation Skin exam: PRESENT: dry, intact, warm. ABSENT: cyanosis, rash Results Laboratory Results: 06/18/16 05:40 06/18/16 05:40 06/18/16 06/18/16 05:40 05:40 WBC 11.7 H RBC 3.14 L Hgb 8.9 L Hct 27.3 L MCV 87 MCH 28.2 MCHC 32.5 RDW 17.3 H Plt Count 367 Sodium 142.3 Potassium 3.7 Chloride 100 Carbon Dioxide 33 H Anion Gap 9 BUN 22 H Creatinine 1.18 Est GFR ( Amer) 57 L Est GFR (Non-Af Amer) 47 L Glucose 74 L Calcium 9.4 05/30/16 05/30/16 05/31/16 04:00 04:00 05:45 Creatine Kinase 110 CK-MB (CK-2) 3.10 Troponin I 0.270 0.136 Impressions: Abdomen Ultrasound 05/30/16 00:00 IMPRESSION: No gallstones are identified. There is thickening of the gallbladder ko and there is pericholecystic fluid. This was present on the previous CT scan. The possibility of an acalculous cholecystitis should be considered. Other findings as noted above Hepatobiliary Scan Nuclear Medicine 05/31/16 00:00 IMPRESSION: NO CYSTIC OR COMMON DUCT OBSTRUCTION. KUB X-Ray 06/02/16 08:01 IMPRESSION: Allowing for paucity of bowel gas, negative study. Limited as above. Chest X-Ray 06/05/16 06:00 IMPRESSION: Small bilateral pleural effusions with pulmonary vascular congestion. Question mild perihilar edema. Findings are similar compared to . Persistent dense consolidation left lower lobe atelectasis versus pneumonia. Abdomen/Pelvis CT 06/15/16 09:55 IMPRESSION: Right iliacus muscle hematoma Assessment & Plan - Diagnosis (1) Retroperitoneal hematoma Is this a current diagnosis for this admission?: YesPlan: From a hematologic standpoint, okay to DC, we'll follow-up in our office in one month (2) Leg DVT (deep venous thromboembolism), acute Qualifiers: Qualified Code(s): I82.402 - Acute embolism and thrombosis of unspecified deep veins of left lower extremity Is this a current diagnosis for this admission?: YesPlan: Hold on anticoagulation until follow-up in one month (3) Iron deficiency anemia due to chronic blood loss Is this a current diagnosis for this admission?: YesPlan: Hemoglobin stable, will monitor as outpatient and treat accordingly
--- NOTE | 2016-06-18 08:45 | PDOC DISCHARGE SUMMARY ---
General - Admit/Disc Date/PCP Admission Date/Primary Care Provider: 05/29/16 21:13 WAI TIRADO, Discharge Date: 06/18/16 - Discharge Diagnosis (1) Acute acalculous cholecystitis Is this a current diagnosis for this admission?: Yes (2) Acute respiratory failure Is this a current diagnosis for this admission?: Yes (3) Hypokalemia Is this a current diagnosis for this admission?: Yes (4) LLL pneumonia Is this a current diagnosis for this admission?: Yes (5) Non-ST elevation myocardial infarction (NSTEMI), type 2 Is this a current diagnosis for this admission?: Yes (6) Septic shock Is this a current diagnosis for this admission?: No (7) Hypoalbuminemia Is this a current diagnosis for this admission?: Yes (8) Acute renal failure Is this a current diagnosis for this admission?: Yes (9) Phantom pain Is this a current diagnosis for this admission?: Yes (10) Chronic anticoagulation Is this a current diagnosis for this admission?: Yes (11) Pain, abdominal, RLQ Is this a current diagnosis for this admission?: Yes (12) Retroperitoneal bleed Is this a current diagnosis for this admission?: Yes - Additional Information Resuscitation Status: Full Code Home Medications: Adalimumab [Humira Pen] 1 syr INJ Q10D 05/30/16 Albuterol Sulfate [Ventolin HFA MDI 18 GM] 2 puff IH Q4HP PRN 05/30/16 Amlodipine Besylate [Norvasc 5 mg Tablet] 5 mg PO BID 05/30/16 Fondaparinux Sodium [Arixtra] 1 syr INJ DAILY 05/30/16 Hydromorphone HCl [Dilaudid] 4 mg PO Q4HP PRN 05/30/16 Insulin Aspart [Novolog Flexpen] 4 unit SQ BID 05/30/16 Insulin Glargine,Hum.rec.anlog [Lantus Solostar] 5 units SQ QPM 05/30/16 Montelukast Sodium [Singulair 10 mg Tablet] 10 mg PO QPM 05/30/16 Oxycodone HCl [Oxycontin] 20 mg PO Q8 05/30/16 Pantoprazole Sodium [Protonix] 40 mg PO BID 05/30/16 Promethazine HCl [Phenergan 25 mg Tablet] 1 tab PO Q4HP PRN 05/30/16 Ranitidine HCl [Zantac 150 mg Tablet] 150 mg PO DAILY 05/30/16 History of Present Illness Patient complains of: fever cough History of Present Illness: 60-year-old female well known to our hematology clinic, who is been in for multiple issues over the last few months. She does have known Crohn's disease, as well as with known recurrent iron deficiency anemia. 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 On last hospitalization, she presented with a pneumonia and she was in for several days. I taken her off blood thinners previously because she came in with a GI bleed on Xarelto, she had the GI bleed because of the Crohn's disease and recurrent bleeding from that standpoint. Then she presented again with a pneumonia was treated, at the time she was off blood thinners, and she developed left lower extremity DVT. We then placed her on Arixtra. And she was then discharged home. She came back in approximately 2 weeks ago with fever, chills, was found to be in severe sepsis, hypoxic and was intubated. She was on pressors for short. At time. She was then extubated. But recently was complaining of some right lower quadrant pain. She had CT of the abdomen pelvis done, this indicated a right retroperitoneal hematoma. The Arixtra was discontinued today. Hospital Course Hospital Course: Patient is a 60-year-old with a known history of hypercoagulability syndrome on Arixtra Patient was admitted with sepsis, was intubated in the intensive care unit and placed on pressors Source of the sepsis with pneumonia and a calculus cholecystitis Patient improved with medical management, was eventually extubated and transferred to [facility] patient developed a retroperitoneal hematoma and anticoagulation was discontinued she remains stable the past 48 hours and may be discharged home with home health and home PT She is to follow up with Dr. Daley in the months in the office, and will follow up with her primary care physician in a week Physical Exam Vital Signs: Temp Pulse Resp BP Pulse Ox 98.4 F 80 20 115/65 96 06/18/16 08:00 06/18/16 08:00 06/18/16 08:00 06/18/16 08:00 06/18/16 08:00 Intake & Output 06/17/16 06/18/16 06/19/16 00:59 00:59 00:59 Intake Total 1533 1145 50 Balance 1533 1145 50 Weight 58.5 kg 58.4 kg General appearance: PRESENT: no acute distress, well-developed, well-nourished Head exam: PRESENT: atraumatic, normocephalic Eye exam: PRESENT: conjunctiva pink, EOMI, PERRLA. ABSENT: scleral icterus Ear exam: PRESENT: normal external ear exam Mouth exam: PRESENT: moist, tongue midline Neck exam: ABSENT: carotid bruit, JVD, lymphadenopathy, thyromegaly Respiratory exam: PRESENT: clear to auscultation jenaro. ABSENT: rales, rhonchi, wheezes Cardiovascular exam: PRESENT: RRR. ABSENT: diastolic murmur, rubs, systolic murmur Pulses: PRESENT: normal dorsalis pedis pul Vascular exam: PRESENT: normal capillary refill GI/Abdominal exam: PRESENT: normal bowel sounds, soft. ABSENT: distended, guarding, mass, organolmegaly, rebound, tenderness Rectal exam: PRESENT: deferred Extremities exam: PRESENT: full ROM, other - Left AKA. ABSENT: calf tenderness , clubbing, pedal edema Neurological exam: PRESENT: alert, awake, oriented to person, oriented to place , oriented to time, oriented to situation, CN II-XII grossly intact. ABSENT: motor sensory deficit Psychiatric exam: PRESENT: appropriate affect, normal mood. ABSENT: homicidal ideation, suicidal ideation Skin exam: PRESENT: dry, intact, warm. ABSENT: cyanosis, rash Results Laboratory Results: 06/18/16 05:40 06/18/16 05:40 06/18/16 06/18/16 05:40 05:40 WBC 11.7 H RBC 3.14 L Hgb 8.9 L Hct 27.3 L MCV 87 MCH 28.2 MCHC 32.5 RDW 17.3 H Plt Count 367 Sodium 142.3 Potassium 3.7 Chloride 100 Carbon Dioxide 33 H Anion Gap 9 BUN 22 H Creatinine 1.18 Est GFR ( Amer) 57 L Est GFR (Non-Af Amer) 47 L Glucose 74 L Calcium 9.4 05/30/16 05/30/16 05/31/16 04:00 04:00 05:45 Creatine Kinase 110 CK-MB (CK-2) 3.10 Troponin I 0.270 0.136 Labs- Entire Visit 05/29/16 05/29/16 05/29/16 17:20 17:20 17:20 WBC 20.0 H RBC 3.61 L Hgb 9.7 L Hct 31.2 L MCV 86 MCH 27.0 MCHC 31.3 L RDW 20.8 H Plt Count 279 Total Counted 100 Seg Neutrophils % Not Reportable Seg Neuts % (Manual) 72 Band Neutrophils % 8 H Lymphocytes % Not Reportable Lymphocytes % (Manual) 12 L Atypical Lymphs % 2 Monocytes % Not Reportable Monocytes % (Manual) 4 Eosinophils % Not Reportable Eosinophils % (Manual) 2 Basophils % Not Reportable Basophils % (Manual) 0 Metamyelocytes % Absolute Neutrophils Not Reportable Abs Neuts (Manual) 16.0 H Absolute Lymphocytes Not Reportable Abs Lymphs (Manual) 2.8 Absolute Monocytes Not Reportable Abs Monocytes (Manual) 0.8 Absolute Eosinophils Not Reportable Absolute Eos (Manual) 0.4 Absolute Basophils Not Reportable Abs Basophils (Manual) 0.0 Nucleated RBCs 1 Toxic Granulation SLIGHT Toxic Vacuolation PRESENT Dohle Bodies Clumped Platelets Large Platelets Platelet Comment ADEQUATE Polychromasia Hypochromasia SLIGHT Poikilocytosis SLIGHT Basophilic Stippling Anisocytosis 2+ Tear Drop Cells SLIGHT Ovalocytes Henderson Cells Acanthocytes (Spur) Rouleaux Schistocytes PT 14.3 INR 1.07 Carbonic Acid HCO3/H2CO3 Ratio ABG pH ABG pCO2 ABG pO2 ABG HCO3 ABG Total CO2 ABG O2 Saturation ABG Base Excess FiO2 Sodium 141.5 Potassium 2.2 L* Chloride 99 Carbon Dioxide 30 Anion Gap 13 BUN 15 Creatinine 0.78 Est GFR ( Amer) > 60 Est GFR (Non-Af Amer) > 60 Glucose 76 POC Glucose Lactic Acid Calcium 8.7 Magnesium Total Bilirubin 0.6 Direct Bilirubin 0.3 Indirect Bilirubin Not Reportable Neonat Total Bilirubin Not Reportable AST 31 ALT 39 Alkaline Phosphatase 110 Creatine Kinase CK-MB (CK-2) Troponin I Total Protein 4.7 L Albumin 2.6 L Amylase Lipase Urine Color Urine Appearance Urine pH Ur Specific [place] Urine Protein Urine Glucose (UA) Urine Ketones Urine Blood Urine Nitrite Urine Bilirubin Urine Urobilinogen Ur Leukocyte Esterase Urine WBC (Auto) Urine RBC (Auto) Urine Bacteria (Auto) Urine Mucus (Auto) Urine Ascorbic Acid Stool Occult Blood Dose Start Time Dose Stop Time Time Trough Drawn Time Peak Drawn Gentamicin Peak Gentamicin Trough Vancomycin Trough C. difficile Tox (PCR) Influenza A (Rapid) Influenza B (Rapid) Slides for Path Review Blood Type Blood Type Confirm Antibody Screen Crossmatch 05/29/16 05/29/16 05/29/16 17:20 17:20 17:20 WBC RBC Hgb Hct MCV MCH MCHC RDW Plt Count Total Counted Seg Neutrophils % Seg Neuts % (Manual) Band Neutrophils % Lymphocytes % Lymphocytes % (Manual) Atypical Lymphs % Monocytes % Monocytes % (Manual) Eosinophils % Eosinophils % (Manual) Basophils % Basophils % (Manual) Metamyelocytes % Absolute Neutrophils Abs Neuts (Manual) Absolute Lymphocytes Abs Lymphs (Manual) Absolute Monocytes Abs Monocytes (Manual) Absolute Eosinophils Absolute Eos (Manual) Absolute Basophils Abs Basophils (Manual) Nucleated RBCs Toxic Granulation Toxic Vacuolation Dohle Bodies Clumped Platelets Large Platelets Platelet Comment Polychromasia Hypochromasia Poikilocytosis Basophilic Stippling Anisocytosis Tear Drop Cells Ovalocytes Henderson Cells Acanthocytes (Spur) Rouleaux Schistocytes PT INR Carbonic Acid HCO3/H2CO3 Ratio ABG pH ABG pCO2 ABG pO2 ABG HCO3 ABG Total CO2 ABG O2 Saturation ABG Base Excess FiO2 Sodium Potassium Chloride Carbon Dioxide Anion Gap BUN Creatinine Est GFR ( Amer) Est GFR (Non-Af Amer) Glucose POC Glucose Lactic Acid 4.1 H Calcium Magnesium 1.2 L* Total Bilirubin Direct Bilirubin Indirect Bilirubin Neonat Total Bilirubin AST ALT Alkaline Phosphatase Creatine Kinase 30 CK-MB (CK-2) Troponin I Total Protein Albumin Amylase Lipase Urine Color Urine Appearance Urine pH Ur Specific [place] Urine Protein Urine Glucose (UA) Urine Ketones Urine Blood Urine Nitrite Urine Bilirubin Urine Urobilinogen Ur Leukocyte Esterase Urine WBC (Auto) Urine RBC (Auto) Urine Bacteria (Auto) Urine Mucus (Auto) Urine Ascorbic Acid Stool Occult Blood Dose Start Time Dose Stop Time Time Trough Drawn Time Peak Drawn Gentamicin Peak Gentamicin Trough Vancomycin Trough C. difficile Tox (PCR) Influenza A (Rapid) Influenza B (Rapid) Slides for Path Review Blood Type Blood Type Confirm Antibody Screen Crossmatch 05/29/16 05/29/16 05/29/16 17:20 17:52 19:29 WBC RBC Hgb Hct MCV MCH MCHC RDW Plt Count Total Counted Seg Neutrophils % Seg Neuts % (Manual) Band Neutrophils % Lymphocytes % Lymphocytes % (Manual) Atypical Lymphs % Monocytes % Monocytes % (Manual) Eosinophils % Eosinophils % (Manual) Basophils % Basophils % (Manual) Metamyelocytes % Absolute Neutrophils Abs Neuts (Manual) Absolute Lymphocytes Abs Lymphs (Manual) Absolute Monocytes Abs Monocytes (Manual) Absolute Eosinophils Absolute Eos (Manual) Absolute Basophils Abs Basophils (Manual) Nucleated RBCs Toxic Granulation Toxic Vacuolation Dohle Bodies Clumped Platelets Large Platelets Platelet Comment Polychromasia Hypochromasia Poikilocytosis Basophilic Stippling Anisocytosis Tear Drop Cells Ovalocytes Henderson Cells Acanthocytes (Spur) Rouleaux Schistocytes PT INR Carbonic Acid 1.27 HCO3/H2CO3 Ratio 20:1 ABG pH 7.41 ABG pCO2 42.2 ABG pO2 70.9 L ABG HCO3 26.0 ABG Total CO2 27.3 H ABG O2 Saturation 94.4 ABG Base Excess 1.2 FiO2 15L Sodium Potassium Chloride Carbon Dioxide Anion Gap BUN Creatinine Est GFR ( Amer) Est GFR (Non-Af Amer) Glucose POC Glucose Lactic Acid Calcium Magnesium Total Bilirubin Direct Bilirubin Indirect Bilirubin Neonat Total Bilirubin AST ALT Alkaline Phosphatase Creatine Kinase CK-MB (CK-2) 0.32 Troponin I 0.227 Total Protein Albumin Amylase Lipase Urine Color YELLOW Urine Appearance SLIGHTLY-CLOUDY Urine pH 5.0 Ur Specific [place] 1.006 Urine Protein NEGATIVE Urine Glucose (UA) NEGATIVE Urine Ketones NEGATIVE Urine Blood NEGATIVE Urine Nitrite NEGATIVE Urine Bilirubin NEGATIVE Urine Urobilinogen NEGATIVE Ur Leukocyte Esterase NEGATIVE Urine WBC (Auto) 1 Urine RBC (Auto) 0 Urine Bacteria (Auto) TRACE Urine Mucus (Auto) RARE Urine Ascorbic Acid NEGATIVE Stool Occult Blood Dose Start Time Dose Stop Time Time Trough Drawn Time Peak Drawn Gentamicin Peak Gentamicin Trough Vancomycin Trough C. difficile Tox (PCR) Influenza A (Rapid) Influenza B (Rapid) Slides for Path Review Blood Type Blood Type Confirm Antibody Screen Crossmatch 05/29/16 05/29/16 05/29/16 21:10 21:33 22:00 WBC RBC Hgb Hct MCV MCH MCHC RDW Plt Count Total Counted Seg Neutrophils % Seg Neuts % (Manual) Band Neutrophils % Lymphocytes % Lymphocytes % (Manual) Atypical Lymphs % Monocytes % Monocytes % (Manual) Eosinophils % Eosinophils % (Manual) Basophils % Basophils % (Manual) Metamyelocytes % Absolute Neutrophils Abs Neuts (Manual) Absolute Lymphocytes Abs Lymphs (Manual) Absolute Monocytes Abs Monocytes (Manual) Absolute Eosinophils Absolute Eos (Manual) Absolute Basophils Abs Basophils (Manual) Nucleated RBCs Toxic Granulation Toxic Vacuolation Dohle Bodies Clumped Platelets Large Platelets Platelet Comment Polychromasia Hypochromasia Poikilocytosis Basophilic Stippling Anisocytosis Tear Drop Cells Ovalocytes Henderson Cells Acanthocytes (Spur) Rouleaux Schistocytes PT INR Carbonic Acid HCO3/H2CO3 Ratio ABG pH ABG pCO2 ABG pO2 ABG HCO3 ABG Total CO2 ABG O2 Saturation ABG Base Excess FiO2 Sodium Potassium Chloride Carbon Dioxide Anion Gap BUN Creatinine Est GFR ( Amer) Est GFR (Non-Af Amer) Glucose POC Glucose 99 Lactic Acid 2.7 H Calcium Magnesium Total Bilirubin Direct Bilirubin Indirect Bilirubin Neonat Total Bilirubin AST ALT Alkaline Phosphatase Creatine Kinase CK-MB (CK-2) Troponin I Total Protein Albumin Amylase Lipase Urine Color Urine Appearance Urine pH Ur Specific [place] Urine Protein Urine Glucose (UA) Urine Ketones Urine Blood Urine Nitrite Urine Bilirubin Urine Urobilinogen Ur Leukocyte Esterase Urine WBC (Auto) Urine RBC (Auto) Urine Bacteria (Auto) Urine Mucus (Auto) Urine Ascorbic Acid Stool Occult Blood Dose Start Time Dose Stop Time Time Trough Drawn Time Peak Drawn Gentamicin Peak Gentamicin Trough Vancomycin Trough C. difficile Tox (PCR) NEGATIVE Influenza A (Rapid) Influenza B (Rapid) Slides for Path Review Blood Type Blood Type Confirm Antibody Screen Crossmatch 05/29/16 05/29/16 05/29/16 22:00 22:00 22:10 WBC RBC Hgb Hct MCV MCH MCHC RDW Plt Count Total Counted Seg Neutrophils % Seg Neuts % (Manual) Band Neutrophils % Lymphocytes % Lymphocytes % (Manual) Atypical Lymphs % Monocytes % Monocytes % (Manual) Eosinophils % Eosinophils % (Manual) Basophils % Basophils % (Manual) Metamyelocytes % Absolute Neutrophils Abs Neuts (Manual) Absolute Lymphocytes Abs Lymphs (Manual) Absolute Monocytes Abs Monocytes (Manual) Absolute Eosinophils Absolute Eos (Manual) Absolute Basophils Abs Basophils (Manual) Nucleated RBCs Toxic Granulation Toxic Vacuolation Dohle Bodies Clumped Platelets Large Platelets Platelet Comment Polychromasia Hypochromasia Poikilocytosis Basophilic Stippling Anisocytosis Tear Drop Cells Ovalocytes Henderson Cells Acanthocytes (Spur) Rouleaux Schistocytes PT INR Carbonic Acid 1.23 HCO3/H2CO3 Ratio 14:1 ABG pH 7.27 L ABG pCO2 40.7 ABG pO2 106.7 H ABG HCO3 18.1 L ABG Total CO2 19.4 L ABG O2 Saturation 97.2 ABG Base Excess -8.3 FiO2 80% Sodium Potassium Chloride Carbon Dioxide Anion Gap BUN Creatinine Est GFR ( Amer) Est GFR (Non-Af Amer) Glucose POC Glucose Lactic Acid Calcium Magnesium Total Bilirubin Direct Bilirubin Indirect Bilirubin Neonat Total Bilirubin AST ALT Alkaline Phosphatase Creatine Kinase CK-MB (CK-2) Troponin I Total Protein Albumin Amylase Lipase Urine Color Urine Appearance Urine pH Ur Specific [place] Urine Protein Urine Glucose (UA) Urine Ketones Urine Blood Urine Nitrite Urine Bilirubin Urine Urobilinogen Ur Leukocyte Esterase Urine WBC (Auto) Urine RBC (Auto) Urine Bacteria (Auto) Urine Mucus (Auto) Urine Ascorbic Acid Stool Occult Blood Dose Start Time Dose Stop Time Time Trough Drawn Time Peak Drawn Gentamicin Peak Gentamicin Trough Vancomycin Trough C. difficile Tox (PCR) Influenza A (Rapid) NEGATIVE Influenza B (Rapid) NEGATIVE Slides for Path Review Blood Type B POSITIVE Blood Type Confirm B POSITIVE Antibody Screen NEGATIVE Crossmatch See Detail 05/30/16 05/30/16 05/30/16 03:00 04:00 04:00 WBC 33.2 H* RBC 3.38 L Hgb 9.1 L Hct 29.7 L MCV 88 MCH 26.9 L MCHC 30.6 L RDW 21.8 H Plt Count 309 Total Counted 100 Seg Neutrophils % Not Reportable Seg Neuts % (Manual) 91 H Band Neutrophils % 8 H Lymphocytes % Not Reportable Lymphocytes % (Manual) 0 L Atypical Lymphs % Monocytes % Not Reportable Monocytes % (Manual) 1 L Eosinophils % Not Reportable Eosinophils % (Manual) 0 Basophils % Not Reportable Basophils % (Manual) 0 Metamyelocytes % Absolute Neutrophils Not Reportable Abs Neuts (Manual) 32.9 H Absolute Lymphocytes Not Reportable Abs Lymphs (Manual) 0.0 L Absolute Monocytes Not Reportable Abs Monocytes (Manual) 0.3 Absolute Eosinophils Not Reportable Absolute Eos (Manual) 0.0 Absolute Basophils Not Reportable Abs Basophils (Manual) 0.0 Nucleated RBCs Toxic Granulation 2+ Toxic Vacuolation Dohle Bodies PRESENT Clumped Platelets Large Platelets Platelet Comment ADEQUATE Polychromasia Hypochromasia SLIGHT Poikilocytosis 2+ Basophilic Stippling Anisocytosis 3+ Tear Drop Cells 1+ Ovalocytes 1+ [place] Cells Acanthocytes (Spur) SLIGHT Rouleaux Schistocytes PT INR Carbonic Acid HCO3/H2CO3 Ratio ABG pH ABG pCO2 ABG pO2 ABG HCO3 ABG Total CO2 ABG O2 Saturation ABG Base Excess FiO2 Sodium 140.3 Potassium 4.4 D Chloride 113 H Carbon Dioxide 16 L D Anion Gap 11 BUN 15 Creatinine 0.76 Est GFR ( Amer) > 60 Est GFR (Non-Af Amer) > 60 Glucose 157 H POC Glucose Lactic Acid Calcium 5.9 L* Magnesium 2.2 D Total Bilirubin Direct Bilirubin Indirect Bilirubin Neonat Total Bilirubin AST ALT Alkaline Phosphatase Creatine Kinase 110 CK-MB (CK-2) Troponin I Total Protein Albumin Amylase Lipase Urine Color Urine Appearance Urine pH Ur Specific [place] Urine Protein Urine Glucose (UA) Urine Ketones Urine Blood Urine Nitrite Urine Bilirubin Urine Urobilinogen Ur Leukocyte Esterase Urine WBC (Auto) Urine RBC (Auto) Urine Bacteria (Auto) Urine Mucus (Auto) Urine Ascorbic Acid Stool Occult Blood Dose Start Time Dose Stop Time Time Trough Drawn Time Peak Drawn Gentamicin Peak Gentamicin Trough Vancomycin Trough C. difficile Tox (PCR) Influenza A (Rapid) Influenza B (Rapid) Slides for Path Review PATHOLOGIST REVIEWED Blood Type Blood Type Confirm Antibody Screen Crossmatch 05/30/16 05/30/16 05/30/16 04:00 04:00 06:25 WBC RBC Hgb Hct MCV MCH MCHC RDW Plt Count Total Counted Seg Neutrophils % Seg Neuts % (Manual) Band Neutrophils % Lymphocytes % Lymphocytes % (Manual) Atypical Lymphs % Monocytes % Monocytes % (Manual) Eosinophils % Eosinophils % (Manual) Basophils % Basophils % (Manual) Metamyelocytes % Absolute Neutrophils Abs Neuts (Manual) Absolute Lymphocytes Abs Lymphs (Manual) Absolute Monocytes Abs Monocytes (Manual) Absolute Eosinophils Absolute Eos (Manual) Absolute Basophils Abs Basophils (Manual) Nucleated RBCs Toxic Granulation Toxic Vacuolation Dohle Bodies Clumped Platelets Large Platelets Platelet Comment Polychromasia Hypochromasia Poikilocytosis Basophilic Stippling Anisocytosis Tear Drop Cells Ovalocytes Alexus Cells Acanthocytes (Spur) Rouleaux Schistocytes PT INR Carbonic Acid 0.80 L HCO3/H2CO3 Ratio 15:1 ABG pH 7.29 L ABG pCO2 26.6 L ABG pO2 180.2 H ABG HCO3 12.4 L ABG Total CO2 13.2 L ABG O2 Saturation 99.1 H ABG Base Excess -12.5 FiO2 80% Sodium Potassium Chloride Carbon Dioxide Anion Gap BUN Creatinine Est GFR ( Amer) Est GFR (Non-Af Amer) Glucose POC Glucose Lactic Acid Calcium Magnesium Total Bilirubin Direct Bilirubin Indirect Bilirubin Neonat Total Bilirubin AST ALT Alkaline Phosphatase Creatine Kinase CK-MB (CK-2) 3.10 Troponin I 0.270 Total Protein Albumin 2.2 L Amylase Lipase Urine Color Urine Appearance Urine pH Ur Specific [place] Urine Protein Urine Glucose (UA) Urine Ketones Urine Blood Urine Nitrite Urine Bilirubin Urine Urobilinogen Ur Leukocyte Esterase Urine WBC (Auto) Urine RBC (Auto) Urine Bacteria (Auto) Urine Mucus (Auto) Urine Ascorbic Acid Stool Occult Blood Dose Start Time Dose Stop Time Time Trough Drawn Time Peak Drawn Gentamicin Peak Gentamicin Trough Vancomycin Trough C. difficile Tox (PCR) Influenza A (Rapid) Influenza B (Rapid) Slides for Path Review Blood Type Blood Type Confirm Antibody Screen Crossmatch 05/30/16 05/30/16 05/30/16 09:17 12:01 12:15 WBC RBC Hgb Hct MCV MCH MCHC RDW Plt Count Total Counted Seg Neutrophils % Seg Neuts % (Manual) Band Neutrophils % Lymphocytes % Lymphocytes % (Manual) Atypical Lymphs % Monocytes % Monocytes % (Manual) Eosinophils % Eosinophils % (Manual) Basophils % Basophils % (Manual) Metamyelocytes % Absolute Neutrophils Abs Neuts (Manual) Absolute Lymphocytes Abs Lymphs (Manual) Absolute Monocytes Abs Monocytes (Manual) Absolute Eosinophils Absolute Eos (Manual) Absolute Basophils Abs Basophils (Manual) Nucleated RBCs Toxic Granulation Toxic Vacuolation Dohle Bodies Clumped Platelets Large Platelets Platelet Comment Polychromasia Hypochromasia Poikilocytosis Basophilic Stippling Anisocytosis Tear Drop Cells Ovalocytes Alexus Cells Acanthocytes (Spur) Rouleaux Schistocytes PT INR Carbonic Acid 0.82 L 0.78 L HCO3/H2CO3 Ratio 15:1 17:1 ABG pH 7.30 L 7.34 L ABG pCO2 27.3 L 25.9 L ABG pO2 88.6 99.8 ABG HCO3 13.0 L 13.6 L ABG Total CO2 13.9 L 14.4 L ABG O2 Saturation 96.1 97.3 ABG Base Excess -11.7 -10.9 FiO2 50% 50% Sodium Potassium Chloride Carbon Dioxide Anion Gap BUN Creatinine Est GFR ( Amer) Est GFR (Non-Af Amer) Glucose POC Glucose 175 H Lactic Acid Calcium Magnesium Total Bilirubin Direct Bilirubin Indirect Bilirubin Neonat Total Bilirubin AST ALT Alkaline Phosphatase Creatine Kinase CK-MB (CK-2) Troponin I Total Protein Albumin Amylase Lipase Urine Color Urine Appearance Urine pH Ur Specific [place] Urine Protein Urine Glucose (UA) Urine Ketones Urine Blood Urine Nitrite Urine Bilirubin Urine Urobilinogen Ur Leukocyte Esterase Urine WBC (Auto) Urine RBC (Auto) Urine Bacteria (Auto) Urine Mucus (Auto) Urine Ascorbic Acid Stool Occult Blood Dose Start Time Dose Stop Time Time Trough Drawn Time Peak Drawn Gentamicin Peak Gentamicin Trough Vancomycin Trough C. difficile Tox (PCR) Influenza A (Rapid) Influenza B (Rapid) Slides for Path Review Blood Type Blood Type Confirm Antibody Screen Crossmatch 05/30/16 05/30/16 05/30/16 16:55 17:33 23:23 WBC RBC Hgb Hct MCV MCH MCHC RDW Plt Count Total Counted Seg Neutrophils % Seg Neuts % (Manual) Band Neutrophils % Lymphocytes % Lymphocytes % (Manual) Atypical Lymphs % Monocytes % Monocytes % (Manual) Eosinophils % Eosinophils % (Manual) Basophils % Basophils % (Manual) Metamyelocytes % Absolute Neutrophils Abs Neuts (Manual) Absolute Lymphocytes Abs Lymphs (Manual) Absolute Monocytes Abs Monocytes (Manual) Absolute Eosinophils Absolute Eos (Manual) Absolute Basophils Abs Basophils (Manual) Nucleated RBCs Toxic Granulation Toxic Vacuolation Dohle Bodies Clumped Platelets Large Platelets Platelet Comment Polychromasia Hypochromasia Poikilocytosis Basophilic Stippling Anisocytosis Tear Drop Cells Ovalocytes [place] Cells Acanthocytes (Spur) Rouleaux Schistocytes PT INR Carbonic Acid 0.63 L HCO3/H2CO3 Ratio 19:1 ABG pH 7.38 ABG pCO2 21.0 L ABG pO2 87.9 ABG HCO3 12.1 L ABG Total CO2 12.7 L ABG O2 Saturation 96.8 ABG Base Excess -11.6 FiO2 40% Sodium Potassium Chloride Carbon Dioxide Anion Gap BUN Creatinine Est GFR ( Amer) Est GFR (Non-Af Amer) Glucose POC Glucose 169 H 213 H Lactic Acid Calcium Magnesium Total Bilirubin Direct Bilirubin Indirect Bilirubin Neonat Total Bilirubin AST ALT Alkaline Phosphatase Creatine Kinase CK-MB (CK-2) Troponin I Total Protein Albumin Amylase Lipase Urine Color Urine Appearance Urine pH Ur Specific [place] Urine Protein Urine Glucose (UA) Urine Ketones Urine Blood Urine Nitrite Urine Bilirubin Urine Urobilinogen Ur Leukocyte Esterase Urine WBC (Auto) Urine RBC (Auto) Urine Bacteria (Auto) Urine Mucus (Auto) Urine Ascorbic Acid Stool Occult Blood Dose Start Time Dose Stop Time Time Trough Drawn Time Peak Drawn Gentamicin Peak Gentamicin Trough Vancomycin Trough C. difficile Tox (PCR) Influenza A (Rapid) Influenza B (Rapid) Slides for Path Review Blood Type Blood Type Confirm Antibody Screen Crossmatch 05/31/16 05/31/16 05/31/16 05:45 05:45 05:45 WBC 29.3 H RBC 2.77 L Hgb 7.5 L Hct 24.1 L MCV 87 MCH 27.2 MCHC 31.4 L RDW 21.8 H Plt Count 244 Total Counted 100 Seg Neutrophils % Not Reportable Seg Neuts % (Manual) 87 H Band Neutrophils % 8 H Lymphocytes % Not Reportable Lymphocytes % (Manual) 2 L Atypical Lymphs % 2 Monocytes % Not Reportable Monocytes % (Manual) 1 L Eosinophils % Not Reportable Eosinophils % (Manual) 0 Basophils % Not Reportable Basophils % (Manual) 0 Metamyelocytes % Absolute Neutrophils Not Reportable Abs Neuts (Manual) 27.8 H Absolute Lymphocytes Not Reportable Abs Lymphs (Manual) 1.2 Absolute Monocytes Not Reportable Abs Monocytes (Manual) 0.3 Absolute Eosinophils Not Reportable Absolute Eos (Manual) 0.0 Absolute Basophils Not Reportable Abs Basophils (Manual) 0.0 Nucleated RBCs 1 Toxic Granulation 1+ Toxic Vacuolation Dohle Bodies Clumped Platelets Large Platelets Platelet Comment ADEQUATE Polychromasia Hypochromasia Poikilocytosis 1+ Basophilic Stippling Anisocytosis 3+ Tear Drop Cells 1+ Ovalocytes Henderson Cells Acanthocytes (Spur) Rouleaux Schistocytes SLIGHT PT INR Carbonic Acid HCO3/H2CO3 Ratio ABG pH ABG pCO2 ABG pO2 ABG HCO3 ABG Total CO2 ABG O2 Saturation ABG Base Excess FiO2 Sodium 143.1 Potassium 3.5 L Chloride 117 H Carbon Dioxide 14 L Anion Gap 12 BUN 20 Creatinine 1.10 Est GFR ( Amer) > 60 Est GFR (Non-Af Amer) 51 L Glucose 146 H POC Glucose Lactic Acid Calcium 7.2 L Magnesium 2.0 Total Bilirubin 0.5 Direct Bilirubin 0.5 H Indirect Bilirubin Not Reportable Neonat Total Bilirubin Not Reportable AST 402 H ALT 904 H Alkaline Phosphatase 111 Creatine Kinase CK-MB (CK-2) Troponin I Total Protein 3.8 L Albumin 1.8 L Amylase Lipase Urine Color Urine Appearance Urine pH Ur Specific [place] Urine Protein Urine Glucose (UA) Urine Ketones Urine Blood Urine Nitrite Urine Bilirubin Urine Urobilinogen Ur Leukocyte Esterase Urine WBC (Auto) Urine RBC (Auto) Urine Bacteria (Auto) Urine Mucus (Auto) Urine Ascorbic Acid Stool Occult Blood Dose Start Time Dose Stop Time Time Trough Drawn 0545 Time Peak Drawn Gentamicin Peak Gentamicin Trough Vancomycin Trough 16.9 C. difficile Tox (PCR) Influenza A (Rapid) Influenza B (Rapid) Slides for Path Review Blood Type Blood Type Confirm Antibody Screen Crossmatch 05/31/16 05/31/16 05/31/16 05:45 06:02 11:41 WBC RBC Hgb Hct MCV MCH MCHC RDW Plt Count Total Counted Seg Neutrophils % Seg Neuts % (Manual) Band Neutrophils % Lymphocytes % Lymphocytes % (Manual) Atypical Lymphs % Monocytes % Monocytes % (Manual) Eosinophils % Eosinophils % (Manual) Basophils % Basophils % (Manual) Metamyelocytes % Absolute Neutrophils Abs Neuts (Manual) Absolute Lymphocytes Abs Lymphs (Manual) Absolute Monocytes Abs Monocytes (Manual) Absolute Eosinophils Absolute Eos (Manual) Absolute Basophils Abs Basophils (Manual) Nucleated RBCs Toxic Granulation Toxic Vacuolation Dohle Bodies Clumped Platelets Large Platelets Platelet Comment Polychromasia Hypochromasia Poikilocytosis Basophilic Stippling Anisocytosis Tear Drop Cells Ovalocytes Henderson Cells Acanthocytes (Spur) Rouleaux Schistocytes PT INR Carbonic Acid 0.64 L HCO3/H2CO3 Ratio 19:1 ABG pH 7.38 ABG pCO2 21.3 L ABG pO2 101.5 H ABG HCO3 12.4 L ABG Total CO2 13.1 L ABG O2 Saturation 97.7 ABG Base Excess -11.3 FiO2 35% Sodium Potassium Chloride Carbon Dioxide Anion Gap BUN Creatinine Est GFR ( Amer) Est GFR (Non-Af Amer) Glucose POC Glucose Lactic Acid Calcium Magnesium Total Bilirubin Direct Bilirubin Indirect Bilirubin Neonat Total Bilirubin AST ALT Alkaline Phosphatase Creatine Kinase CK-MB (CK-2) Troponin I 0.136 Total Protein Albumin Amylase < 30 L Lipase 43.2 Urine Color Urine Appearance Urine pH Ur Specific [place] Urine Protein Urine Glucose (UA) Urine Ketones Urine Blood Urine Nitrite Urine Bilirubin Urine Urobilinogen Ur Leukocyte Esterase Urine WBC (Auto) Urine RBC (Auto) Urine Bacteria (Auto) Urine Mucus (Auto) Urine Ascorbic Acid Stool Occult Blood Dose Start Time Dose Stop Time Time Trough Drawn Time Peak Drawn Gentamicin Peak Gentamicin Trough Vancomycin Trough C. difficile Tox (PCR) Influenza A (Rapid) Influenza B (Rapid) Slides for Path Review Blood Type Blood Type Confirm Antibody Screen Crossmatch 05/31/16 05/31/16 05/31/16 13:21 19:13 22:25 WBC RBC Hgb Hct MCV MCH MCHC RDW Plt Count Total Counted Seg Neutrophils % Seg Neuts % (Manual) Band Neutrophils % Lymphocytes % Lymphocytes % (Manual) Atypical Lymphs % Monocytes % Monocytes % (Manual) Eosinophils % Eosinophils % (Manual) Basophils % Basophils % (Manual) Metamyelocytes % Absolute Neutrophils Abs Neuts (Manual) Absolute Lymphocytes Abs Lymphs (Manual) Absolute Monocytes Abs Monocytes (Manual) Absolute Eosinophils Absolute Eos (Manual) Absolute Basophils Abs Basophils (Manual) Nucleated RBCs Toxic Granulation Toxic Vacuolation Dohle Bodies Clumped Platelets Large Platelets Platelet Comment Polychromasia Hypochromasia Poikilocytosis Basophilic Stippling Anisocytosis Tear Drop Cells Ovalocytes [place] Cells Acanthocytes (Spur) Rouleaux Schistocytes PT INR Carbonic Acid HCO3/H2CO3 Ratio ABG pH ABG pCO2 ABG pO2 ABG HCO3 ABG Total CO2 ABG O2 Saturation ABG Base Excess FiO2 Sodium Potassium Chloride Carbon Dioxide Anion Gap BUN Creatinine Est GFR ( Amer) Est GFR (Non-Af Amer) Glucose POC Glucose 134 H 169 H Lactic Acid Calcium Magnesium Total Bilirubin Direct Bilirubin Indirect Bilirubin Neonat Total Bilirubin AST ALT Alkaline Phosphatase Creatine Kinase CK-MB (CK-2) Troponin I Total Protein Albumin Amylase Lipase Urine Color Urine Appearance Urine pH Ur Specific [place] Urine Protein Urine Glucose (UA) Urine Ketones Urine Blood Urine Nitrite Urine Bilirubin Urine Urobilinogen Ur Leukocyte Esterase Urine WBC (Auto) Urine RBC (Auto) Urine Bacteria (Auto) Urine Mucus (Auto) Urine Ascorbic Acid Stool Occult Blood Dose Start Time Dose Stop Time Time Trough Drawn 2225 Time Peak Drawn Gentamicin Peak Gentamicin Trough 5.0 H Vancomycin Trough C. difficile Tox (PCR) Influenza A (Rapid) Influenza B (Rapid) Slides for Path Review Blood Type Blood Type Confirm Antibody Screen Crossmatch 05/31/16 06/01/16 06/01/16 23:59 00:05 00:05 WBC 24.3 H RBC 3.47 L Hgb 9.5 L Hct 29.4 L MCV 85 MCH 27.4 MCHC 32.3 RDW 18.7 H Plt Count 183 Total Counted 100 Seg Neutrophils % Not Reportable Seg Neuts % (Manual) 91 H Band Neutrophils % 1 L Lymphocytes % Not Reportable Lymphocytes % (Manual) 6 L Atypical Lymphs % Monocytes % Not Reportable Monocytes % (Manual) 2 L Eosinophils % Not Reportable Eosinophils % (Manual) 0 Basophils % Not Reportable Basophils % (Manual) 0 Metamyelocytes % Absolute Neutrophils Not Reportable Abs Neuts (Manual) 22.4 H Absolute Lymphocytes Not Reportable Abs Lymphs (Manual) 1.5 Absolute Monocytes Not Reportable Abs Monocytes (Manual) 0.5 Absolute Eosinophils Not Reportable Absolute Eos (Manual) 0.0 Absolute Basophils Not Reportable Abs Basophils (Manual) 0.0 Nucleated RBCs Toxic Granulation 1+ Toxic Vacuolation Dohle Bodies Clumped Platelets Large Platelets Platelet Comment ADEQUATE Polychromasia SLIGHT Hypochromasia Poikilocytosis Basophilic Stippling Anisocytosis 1+ Tear Drop Cells Ovalocytes SLIGHT Alexus Cells Acanthocytes (Spur) Rouleaux Schistocytes PT INR Carbonic Acid HCO3/H2CO3 Ratio ABG pH ABG pCO2 ABG pO2 ABG HCO3 ABG Total CO2 ABG O2 Saturation ABG Base Excess FiO2 Sodium Potassium Chloride Carbon Dioxide Anion Gap BUN Creatinine Est GFR ( Amer) Est GFR (Non-Af Amer) Glucose POC Glucose 159 H Lactic Acid Calcium Magnesium Total Bilirubin Direct Bilirubin Indirect Bilirubin Neonat Total Bilirubin AST ALT Alkaline Phosphatase Creatine Kinase CK-MB (CK-2) Troponin I Total Protein Albumin Amylase Lipase Urine Color Urine Appearance Urine pH Ur Specific [place] Urine Protein Urine Glucose (UA) Urine Ketones Urine Blood Urine Nitrite Urine Bilirubin Urine Urobilinogen Ur Leukocyte Esterase Urine WBC (Auto) Urine RBC (Auto) Urine Bacteria (Auto) Urine Mucus (Auto) Urine Ascorbic Acid Stool Occult Blood Dose Start Time 5 Dose Stop Time 2335 Time Trough Drawn Time Peak Drawn 0005 Gentamicin Peak 11.7 H* Gentamicin Trough Vancomycin Trough C. difficile Tox (PCR) Influenza A (Rapid) Influenza B (Rapid) Slides for Path Review Blood Type Blood Type Confirm Antibody Screen Crossmatch 06/01/16 06/01/16 06/01/16 05:50 05:50 05:50 WBC 21.3 H RBC 3.29 L Hgb 9.2 L Hct 27.8 L MCV 85 MCH 28.0 MCHC 33.1 RDW 18.9 H Plt Count 178 Total Counted 100 Seg Neutrophils % Not Reportable Seg Neuts % (Manual) 92 H Band Neutrophils % 1 L Lymphocytes % Not Reportable Lymphocytes % (Manual) 3 L Atypical Lymphs % Monocytes % Not Reportable Monocytes % (Manual) 4 Eosinophils % Not Reportable Eosinophils % (Manual) 0 Basophils % Not Reportable Basophils % (Manual) 0 Metamyelocytes % Absolute Neutrophils Not Reportable Abs Neuts (Manual) 19.8 H Absolute Lymphocytes Not Reportable Abs Lymphs (Manual) 0.6 Absolute Monocytes Not Reportable Abs Monocytes (Manual) 0.9 Absolute Eosinophils Not Reportable Absolute Eos (Manual) 0.0 Absolute Basophils Not Reportable Abs Basophils (Manual) 0.0 Nucleated RBCs 1 Toxic Granulation 1+ Toxic Vacuolation Dohle Bodies Clumped Platelets Large Platelets PRESENT Platelet Comment ADEQUATE Polychromasia SLIGHT Hypochromasia Poikilocytosis Basophilic Stippling Anisocytosis 1+ Tear Drop Cells SLIGHT Ovalocytes SLIGHT [place] Cells Acanthocytes (Spur) Rouleaux Schistocytes PT INR Carbonic Acid 0.61 L HCO3/H2CO3 Ratio 20:1 ABG pH 7.40 ABG pCO2 20.4 L* ABG pO2 84.0 ABG HCO3 12.4 L ABG Total CO2 13.0 L ABG O2 Saturation 96.6 ABG Base Excess -10.7 FiO2 28% Sodium 144.6 Potassium 3.0 L* Chloride 117 H Carbon Dioxide 14 L Anion Gap 14 BUN 22 H Creatinine 1.39 H Est GFR ( Amer) 47 L Est GFR (Non-Af Amer) 39 L Glucose 166 H POC Glucose Lactic Acid Calcium 7.8 L Magnesium 2.0 Total Bilirubin 0.5 Direct Bilirubin 0.5 H Indirect Bilirubin Not Reportable Neonat Total Bilirubin Not Reportable AST 126 H ALT 758 H Alkaline Phosphatase 109 Creatine Kinase CK-MB (CK-2) Troponin I Total Protein 4.0 L Albumin 2.0 L Amylase Lipase Urine Color Urine Appearance Urine pH Ur Specific [place] Urine Protein Urine Glucose (UA) Urine Ketones Urine Blood Urine Nitrite Urine Bilirubin Urine Urobilinogen Ur Leukocyte Esterase Urine WBC (Auto) Urine RBC (Auto) Urine Bacteria (Auto) Urine Mucus (Auto) Urine Ascorbic Acid Stool Occult Blood Dose Start Time Dose Stop Time Time Trough Drawn Time Peak Drawn Gentamicin Peak Gentamicin Trough Vancomycin Trough C. difficile Tox (PCR) Influenza A (Rapid) Influenza B (Rapid) Slides for Path Review Blood Type Blood Type Confirm Antibody Screen Crossmatch 06/01/16 06/01/16 06/01/16 12:50 14:05 17:45 WBC RBC Hgb Hct MCV MCH MCHC RDW Plt Count Total Counted Seg Neutrophils % Seg Neuts % (Manual) Band Neutrophils % Lymphocytes % Lymphocytes % (Manual) Atypical Lymphs % Monocytes % Monocytes % (Manual) Eosinophils % Eosinophils % (Manual) Basophils % Basophils % (Manual) Metamyelocytes % Absolute Neutrophils Abs Neuts (Manual) Absolute Lymphocytes Abs Lymphs (Manual) Absolute Monocytes Abs Monocytes (Manual) Absolute Eosinophils Absolute Eos (Manual) Absolute Basophils Abs Basophils (Manual) Nucleated RBCs Toxic Granulation Toxic Vacuolation Dohle Bodies Clumped Platelets Large Platelets Platelet Comment Polychromasia Hypochromasia Poikilocytosis Basophilic Stippling Anisocytosis Tear Drop Cells Ovalocytes Alexus Cells Acanthocytes (Spur) Rouleaux Schistocytes PT INR Carbonic Acid HCO3/H2CO3 Ratio ABG pH ABG pCO2 ABG pO2 ABG HCO3 ABG Total CO2 ABG O2 Saturation ABG Base Excess FiO2 Sodium Potassium Chloride Carbon Dioxide Anion Gap BUN Creatinine Est GFR ( Amer) Est GFR (Non-Af Amer) Glucose POC Glucose 119 H Lactic Acid 2.3 H 1.6 Calcium Magnesium Total Bilirubin Direct Bilirubin Indirect Bilirubin Neonat Total Bilirubin AST ALT Alkaline Phosphatase Creatine Kinase CK-MB (CK-2) Troponin I Total Protein Albumin Amylase Lipase Urine Color Urine Appearance Urine pH Ur Specific [place] Urine Protein Urine Glucose (UA) Urine Ketones Urine Blood Urine Nitrite Urine Bilirubin Urine Urobilinogen Ur Leukocyte Esterase Urine WBC (Auto) Urine RBC (Auto) Urine Bacteria (Auto) Urine Mucus (Auto) Urine Ascorbic Acid Stool Occult Blood Dose Start Time Dose Stop Time Time Trough Drawn Time Peak Drawn Gentamicin Peak Gentamicin Trough Vancomycin Trough C. difficile Tox (PCR) Influenza A (Rapid) Influenza B (Rapid) Slides for Path Review Blood Type Blood Type Confirm Antibody Screen Crossmatch 06/01/16 06/01/16 06/02/16 17:45 19:50 05:30 WBC RBC Hgb Hct MCV MCH MCHC RDW Plt Count Total Counted Seg Neutrophils % Seg Neuts % (Manual) Band Neutrophils % Lymphocytes % Lymphocytes % (Manual) Atypical Lymphs % Monocytes % Monocytes % (Manual) Eosinophils % Eosinophils % (Manual) Basophils % Basophils % (Manual) Metamyelocytes % Absolute Neutrophils Abs Neuts (Manual) Absolute Lymphocytes Abs Lymphs (Manual) Absolute Monocytes Abs Monocytes (Manual) Absolute Eosinophils Absolute Eos (Manual) Absolute Basophils Abs Basophils (Manual) Nucleated RBCs Toxic Granulation Toxic Vacuolation Dohle Bodies Clumped Platelets Large Platelets Platelet Comment Polychromasia Hypochromasia Poikilocytosis Basophilic Stippling Anisocytosis Tear Drop Cells Ovalocytes Alexus Cells Acanthocytes (Spur) Rouleaux Schistocytes PT INR Carbonic Acid 0.64 L 0.68 L HCO3/H2CO3 Ratio 21:1 21:1 ABG pH 7.43 7.43 ABG pCO2 21.2 L 22.6 L ABG pO2 71.0 L 73.8 L ABG HCO3 13.7 L 14.5 L ABG Total CO2 14.3 L 15.2 L ABG O2 Saturation 95.1 95.5 ABG Base Excess -9.1 -8.4 FiO2 28% 40% Sodium 148.2 H Potassium 3.3 L Chloride 120 H Carbon Dioxide 15 L Anion Gap 13 BUN 24 H Creatinine 1.58 H Est GFR ( Amer) 41 L Est GFR (Non-Af Amer) 34 L Glucose 115 H POC Glucose Lactic Acid Calcium 8.2 L Magnesium Total Bilirubin Direct Bilirubin Indirect Bilirubin Neonat Total Bilirubin AST ALT Alkaline Phosphatase Creatine Kinase CK-MB (CK-2) Troponin I Total Protein Albumin Amylase Lipase Urine Color Urine Appearance Urine pH Ur Specific [place] Urine Protein Urine Glucose (UA) Urine Ketones Urine Blood Urine Nitrite Urine Bilirubin Urine Urobilinogen Ur Leukocyte Esterase Urine WBC (Auto) Urine RBC (Auto) Urine Bacteria (Auto) Urine Mucus (Auto) Urine Ascorbic Acid Stool Occult Blood Dose Start Time Dose Stop Time Time Trough Drawn Time Peak Drawn Gentamicin Peak Gentamicin Trough Vancomycin Trough C. difficile Tox (PCR) Influenza A (Rapid) Influenza B (Rapid) Slides for Path Review Blood Type Blood Type Confirm Antibody Screen Crossmatch 06/02/16 06/02/16 06/02/16 05:30 05:30 14:45 WBC 19.1 H 19.8 H RBC 3.61 L 3.60 L Hgb 10.0 L 10.1 L Hct 30.8 L 30.9 L MCV 85 86 MCH 27.8 27.9 MCHC 32.6 32.5 RDW 19.6 H 19.3 H Plt Count 216 193 Total Counted 100 100 Seg Neutrophils % Not Reportable Not Reportable Seg Neuts % (Manual) 89 H 88 H Band Neutrophils % 2 L 1 L Lymphocytes % Not Reportable Not Reportable Lymphocytes % (Manual) 7 L 5 L Atypical Lymphs % 3 Monocytes % Not Reportable Not Reportable Monocytes % (Manual) 1 L 2 L Eosinophils % Not Reportable Not Reportable Eosinophils % (Manual) 0 1 Basophils % Not Reportable Not Reportable Basophils % (Manual) 0 0 Metamyelocytes % 1 H Absolute Neutrophils Not Reportable Not Reportable Abs Neuts (Manual) 17.6 H 17.6 H Absolute Lymphocytes Not Reportable Not Reportable Abs Lymphs (Manual) 1.3 1.6 Absolute Monocytes Not Reportable Not Reportable Abs Monocytes (Manual) 0.2 0.4 Absolute Eosinophils Not Reportable Not Reportable Absolute Eos (Manual) 0.0 0.2 Absolute Basophils Not Reportable Not Reportable Abs Basophils (Manual) 0.0 0.0 Nucleated RBCs 1 Toxic Granulation 1+ 2+ Toxic Vacuolation Dohle Bodies Clumped Platelets N Large Platelets Platelet Comment ADEQUATE ADEQUATE Polychromasia SLIGHT SLIGHT Hypochromasia SLIGHT SLIGHT Poikilocytosis 1+ Basophilic Stippling Anisocytosis 2+ 2+ Tear Drop Cells Ovalocytes SLIGHT SLIGHT [place] Cells SLIGHT Acanthocytes (Spur) Rouleaux 1+ Schistocytes 1+ PT INR Carbonic Acid HCO3/H2CO3 Ratio ABG pH ABG pCO2 ABG pO2 ABG HCO3 ABG Total CO2 ABG O2 Saturation ABG Base Excess FiO2 Sodium 151.7 H Potassium 3.2 L Chloride 121 H Carbon Dioxide 16 L Anion Gap 15 BUN 28 H Creatinine 1.68 H Est GFR ( Amer) 38 L Est GFR (Non-Af Amer) 31 L Glucose 127 H POC Glucose Lactic Acid Calcium 8.5 Magnesium 2.0 Total Bilirubin 0.6 Direct Bilirubin 0.6 H Indirect Bilirubin Not Reportable Neonat Total Bilirubin Not Reportable AST 66 H ALT 606 H Alkaline Phosphatase 111 Creatine Kinase CK-MB (CK-2) Troponin I Total Protein 4.7 L Albumin 2.3 L Amylase Lipase Urine Color Urine Appearance Urine pH Ur Specific [place] Urine Protein Urine Glucose (UA) Urine Ketones Urine Blood Urine Nitrite Urine Bilirubin Urine Urobilinogen Ur Leukocyte Esterase Urine WBC (Auto) Urine RBC (Auto) Urine Bacteria (Auto) Urine Mucus (Auto) Urine Ascorbic Acid Stool Occult Blood Dose Start Time Dose Stop Time Time Trough Drawn Time Peak Drawn Gentamicin Peak Gentamicin Trough Vancomycin Trough C. difficile Tox (PCR) Influenza A (Rapid) Influenza B (Rapid) Slides for Path Review Blood Type Blood Type Confirm Antibody Screen Crossmatch 06/02/16 06/02/16 06/02/16 14:45 17:21 23:31 WBC RBC Hgb Hct MCV MCH MCHC RDW Plt Count Total Counted Seg Neutrophils % Seg Neuts % (Manual) Band Neutrophils % Lymphocytes % Lymphocytes % (Manual) Atypical Lymphs % Monocytes % Monocytes % (Manual) Eosinophils % Eosinophils % (Manual) Basophils % Basophils % (Manual) Metamyelocytes % Absolute Neutrophils Abs Neuts (Manual) Absolute Lymphocytes Abs Lymphs (Manual) Absolute Monocytes Abs Monocytes (Manual) Absolute Eosinophils Absolute Eos (Manual) Absolute Basophils Abs Basophils (Manual) Nucleated RBCs Toxic Granulation Toxic Vacuolation Dohle Bodies Clumped Platelets Large Platelets Platelet Comment Polychromasia Hypochromasia Poikilocytosis Basophilic Stippling Anisocytosis Tear Drop Cells Ovalocytes [place] Cells Acanthocytes (Spur) Rouleaux Schistocytes PT INR Carbonic Acid HCO3/H2CO3 Ratio ABG pH ABG pCO2 ABG pO2 ABG HCO3 ABG Total CO2 ABG O2 Saturation ABG Base Excess FiO2 Sodium 151.7 H Potassium 3.6 Chloride 121 H Carbon Dioxide 18 L Anion Gap 13 BUN 30 H Creatinine 1.69 H Est GFR ( Amer) 38 L Est GFR (Non-Af Amer) 31 L Glucose 133 H POC Glucose 151 H 124 H Lactic Acid Calcium 8.7 Magnesium Total Bilirubin Direct Bilirubin Indirect Bilirubin Neonat Total Bilirubin AST ALT Alkaline Phosphatase Creatine Kinase CK-MB (CK-2) Troponin I Total Protein Albumin Amylase Lipase Urine Color Urine Appearance Urine pH Ur Specific [place] Urine Protein Urine Glucose (UA) Urine Ketones Urine Blood Urine Nitrite Urine Bilirubin Urine Urobilinogen Ur Leukocyte Esterase Urine WBC (Auto) Urine RBC (Auto) Urine Bacteria (Auto) Urine Mucus (Auto) Urine Ascorbic Acid Stool Occult Blood Dose Start Time Dose Stop Time Time Trough Drawn Time Peak Drawn Gentamicin Peak Gentamicin Trough Vancomycin Trough C. difficile Tox (PCR) Influenza A (Rapid) Influenza B (Rapid) Slides for Path Review Blood Type Blood Type Confirm Antibody Screen Crossmatch 06/03/16 06/03/16 06/03/16 05:25 05:25 05:25 WBC 16.1 H RBC 3.11 L Hgb 8.9 L Hct 26.8 L MCV 86 MCH 28.5 MCHC 33.1 RDW 19.3 H Plt Count 169 Total Counted Seg Neutrophils % 90.9 H Seg Neuts % (Manual) Band Neutrophils % Lymphocytes % 5.8 L Lymphocytes % (Manual) Atypical Lymphs % Monocytes % 2.7 L Monocytes % (Manual) Eosinophils % 0.4 Eosinophils % (Manual) Basophils % 0.2 Basophils % (Manual) Metamyelocytes % Absolute Neutrophils 14.7 H Abs Neuts (Manual) Absolute Lymphocytes 0.9 Abs Lymphs (Manual) Absolute Monocytes 0.4 Abs Monocytes (Manual) Absolute Eosinophils 0.1 Absolute Eos (Manual) Absolute Basophils 0.0 Abs Basophils (Manual) Nucleated RBCs Toxic Granulation Toxic Vacuolation Dohle Bodies Clumped Platelets Large Platelets Platelet Comment Polychromasia Hypochromasia Poikilocytosis Basophilic Stippling Anisocytosis Tear Drop Cells Ovalocytes [place] Cells Acanthocytes (Spur) Rouleaux Schistocytes PT INR Carbonic Acid HCO3/H2CO3 Ratio ABG pH ABG pCO2 ABG pO2 ABG HCO3 ABG Total CO2 ABG O2 Saturation ABG Base Excess FiO2 Sodium 149.3 H Potassium 3.4 L Chloride 120 H Carbon Dioxide 17 L Anion Gap 12 BUN 27 H Creatinine 1.54 H Est GFR ( Amer) 42 L Est GFR (Non-Af Amer) 35 L Glucose 124 H POC Glucose Lactic Acid Calcium 8.5 Magnesium 2.0 Total Bilirubin 0.7 Direct Bilirubin 0.7 H Indirect Bilirubin Not Reportable Neonat Total Bilirubin Not Reportable AST 36 ALT 374 H Alkaline Phosphatase 96 Creatine Kinase CK-MB (CK-2) Troponin I Total Protein 4.5 L Albumin 2.3 L Amylase Lipase Urine Color Urine Appearance Urine pH Ur Specific [place] Urine Protein Urine Glucose (UA) Urine Ketones Urine Blood Urine Nitrite Urine Bilirubin Urine Urobilinogen Ur Leukocyte Esterase Urine WBC (Auto) Urine RBC (Auto) Urine Bacteria (Auto) Urine Mucus (Auto) Urine Ascorbic Acid Stool Occult Blood Dose Start Time Dose Stop Time Time Trough Drawn Time Peak Drawn Gentamicin Peak Gentamicin Trough Vancomycin Trough C. difficile Tox (PCR) Influenza A (Rapid) Influenza B (Rapid) Slides for Path Review Blood Type Blood Type Confirm Antibody Screen Crossmatch 06/03/16 06/03/16 06/03/16 05:25 12:17 14:40 WBC RBC Hgb Hct MCV MCH MCHC RDW Plt Count Total Counted Seg Neutrophils % Seg Neuts % (Manual) Band Neutrophils % Lymphocytes % Lymphocytes % (Manual) Atypical Lymphs % Monocytes % Monocytes % (Manual) Eosinophils % Eosinophils % (Manual) Basophils % Basophils % (Manual) Metamyelocytes % Absolute Neutrophils Abs Neuts (Manual) Absolute Lymphocytes Abs Lymphs (Manual) Absolute Monocytes Abs Monocytes (Manual) Absolute Eosinophils Absolute Eos (Manual) Absolute Basophils Abs Basophils (Manual) Nucleated RBCs Toxic Granulation Toxic Vacuolation Dohle Bodies Clumped Platelets Large Platelets Platelet Comment Polychromasia Hypochromasia Poikilocytosis Basophilic Stippling Anisocytosis Tear Drop Cells Ovalocytes Alexus Cells Acanthocytes (Spur) Rouleaux Schistocytes PT INR Carbonic Acid 0.67 L HCO3/H2CO3 Ratio 22:1 ABG pH 7.46 H ABG pCO2 22.3 L ABG pO2 86.4 ABG HCO3 15.4 L ABG Total CO2 16.1 L ABG O2 Saturation 97.2 ABG Base Excess -7.2 FiO2 35% Sodium 151.5 H Potassium 3.2 L Chloride 119 H Carbon Dioxide 19 L Anion Gap 14 BUN 25 H Creatinine 1.37 H Est GFR ( Amer) 48 L Est GFR (Non-Af Amer) 40 L Glucose 106 POC Glucose 108 Lactic Acid Calcium 9.0 Magnesium 2.0 Total Bilirubin Direct Bilirubin Indirect Bilirubin Neonat Total Bilirubin AST ALT Alkaline Phosphatase Creatine Kinase CK-MB (CK-2) Troponin I Total Protein Albumin Amylase Lipase Urine Color Urine Appearance Urine pH Ur Specific [place] Urine Protein Urine Glucose (UA) Urine Ketones Urine Blood Urine Nitrite Urine Bilirubin Urine Urobilinogen Ur Leukocyte Esterase Urine WBC (Auto) Urine RBC (Auto) Urine Bacteria (Auto) Urine Mucus (Auto) Urine Ascorbic Acid Stool Occult Blood Dose Start Time Dose Stop Time Time Trough Drawn Time Peak Drawn Gentamicin Peak Gentamicin Trough Vancomycin Trough C. difficile Tox (PCR) Influenza A (Rapid) Influenza B (Rapid) Slides for Path Review Blood Type Blood Type Confirm Antibody Screen Crossmatch 06/03/16 06/04/16 06/04/16 17:44 01:13 04:15 WBC RBC Hgb Hct MCV MCH MCHC RDW Plt Count Total Counted Seg Neutrophils % Seg Neuts % (Manual) Band Neutrophils % Lymphocytes % Lymphocytes % (Manual) Atypical Lymphs % Monocytes % Monocytes % (Manual) Eosinophils % Eosinophils % (Manual) Basophils % Basophils % (Manual) Metamyelocytes % Absolute Neutrophils Abs Neuts (Manual) Absolute Lymphocytes Abs Lymphs (Manual) Absolute Monocytes Abs Monocytes (Manual) Absolute Eosinophils Absolute Eos (Manual) Absolute Basophils Abs Basophils (Manual) Nucleated RBCs Toxic Granulation Toxic Vacuolation Dohle Bodies Clumped Platelets Large Platelets Platelet Comment Polychromasia Hypochromasia Poikilocytosis Basophilic Stippling Anisocytosis Tear Drop Cells Ovalocytes [place] Cells Acanthocytes (Spur) Rouleaux Schistocytes PT INR Carbonic Acid 0.97 L HCO3/H2CO3 Ratio 21:1 ABG pH 7.43 ABG pCO2 32.1 L ABG pO2 72.2 L ABG HCO3 20.6 ABG Total CO2 21.6 ABG O2 Saturation 95.1 ABG Base Excess -3.1 FiO2 4 L Sodium Potassium Chloride Carbon Dioxide Anion Gap BUN Creatinine Est GFR ( Amer) Est GFR (Non-Af Amer) Glucose POC Glucose 98 90 Lactic Acid Calcium Magnesium Total Bilirubin Direct Bilirubin Indirect Bilirubin Neonat Total Bilirubin AST ALT Alkaline Phosphatase Creatine Kinase CK-MB (CK-2) Troponin I Total Protein Albumin Amylase Lipase Urine Color Urine Appearance Urine pH Ur Specific [place] Urine Protein Urine Glucose (UA) Urine Ketones Urine Blood Urine Nitrite Urine Bilirubin Urine Urobilinogen Ur Leukocyte Esterase Urine WBC (Auto) Urine RBC (Auto) Urine Bacteria (Auto) Urine Mucus (Auto) Urine Ascorbic Acid Stool Occult Blood Dose Start Time Dose Stop Time Time Trough Drawn Time Peak Drawn Gentamicin Peak Gentamicin Trough Vancomycin Trough C. difficile Tox (PCR) Influenza A (Rapid) Influenza B (Rapid) Slides for Path Review Blood Type Blood Type Confirm Antibody Screen Crossmatch 06/04/16 06/04/16 06/04/16 04:15 04:15 13:07 WBC 15.4 H RBC 3.41 L Hgb 9.6 L Hct 29.7 L MCV 87 MCH 28.0 MCHC 32.1 RDW 19.1 H Plt Count 182 Total Counted Seg Neutrophils % 91.1 H Seg Neuts % (Manual) Band Neutrophils % Lymphocytes % 5.4 L Lymphocytes % (Manual) Atypical Lymphs % Monocytes % 2.5 L Monocytes % (Manual) Eosinophils % 0.8 Eosinophils % (Manual) Basophils % 0.2 Basophils % (Manual) Metamyelocytes % Absolute Neutrophils 14.1 H Abs Neuts (Manual) Absolute Lymphocytes 0.8 Abs Lymphs (Manual) Absolute Monocytes 0.4 Abs Monocytes (Manual) Absolute Eosinophils 0.1 Absolute Eos (Manual) Absolute Basophils 0.0 Abs Basophils (Manual) Nucleated RBCs Toxic Granulation Toxic Vacuolation Dohle Bodies Clumped Platelets Large Platelets Platelet Comment Polychromasia Hypochromasia Poikilocytosis Basophilic Stippling Anisocytosis Tear Drop Cells Ovalocytes [place] Cells Acanthocytes (Spur) Rouleaux Schistocytes PT INR Carbonic Acid HCO3/H2CO3 Ratio ABG pH ABG pCO2 ABG pO2 ABG HCO3 ABG Total CO2 ABG O2 Saturation ABG Base Excess FiO2 Sodium 151.2 H Potassium 3.2 L Chloride 119 H Carbon Dioxide 20 L Anion Gap 12 BUN 23 H Creatinine 1.18 Est GFR ( Amer) 57 L Est GFR (Non-Af Amer) 47 L Glucose 76 POC Glucose 71 Lactic Acid Calcium 8.8 Magnesium 1.9 Total Bilirubin Direct Bilirubin Indirect Bilirubin Neonat Total Bilirubin AST ALT Alkaline Phosphatase Creatine Kinase CK-MB (CK-2) Troponin I Total Protein Albumin Amylase Lipase Urine Color Urine Appearance Urine pH Ur Specific [place] Urine Protein Urine Glucose (UA) Urine Ketones Urine Blood Urine Nitrite Urine Bilirubin Urine Urobilinogen Ur Leukocyte Esterase Urine WBC (Auto) Urine RBC (Auto) Urine Bacteria (Auto) Urine Mucus (Auto) Urine Ascorbic Acid Stool Occult Blood Dose Start Time Dose Stop Time Time Trough Drawn Time Peak Drawn Gentamicin Peak Gentamicin Trough Vancomycin Trough C. difficile Tox (PCR) Influenza A (Rapid) Influenza B (Rapid) Slides for Path Review Blood Type Blood Type Confirm Antibody Screen Crossmatch 06/04/16 06/05/16 06/05/16 17:58 00:02 04:20 WBC RBC Hgb Hct MCV MCH MCHC RDW Plt Count Total Counted Seg Neutrophils % Seg Neuts % (Manual) Band Neutrophils % Lymphocytes % Lymphocytes % (Manual) Atypical Lymphs % Monocytes % Monocytes % (Manual) Eosinophils % Eosinophils % (Manual) Basophils % Basophils % (Manual) Metamyelocytes % Absolute Neutrophils Abs Neuts (Manual) Absolute Lymphocytes Abs Lymphs (Manual) Absolute Monocytes Abs Monocytes (Manual) Absolute Eosinophils Absolute Eos (Manual) Absolute Basophils Abs Basophils (Manual) Nucleated RBCs Toxic Granulation Toxic Vacuolation Dohle Bodies Clumped Platelets Large Platelets Platelet Comment Polychromasia Hypochromasia Poikilocytosis Basophilic Stippling Anisocytosis Tear Drop Cells Ovalocytes [place] Cells Acanthocytes (Spur) Rouleaux Schistocytes PT INR Carbonic Acid HCO3/H2CO3 Ratio ABG pH ABG pCO2 ABG pO2 ABG HCO3 ABG Total CO2 ABG O2 Saturation ABG Base Excess FiO2 Sodium 150.0 H Potassium 3.7 Chloride 117 H Carbon Dioxide 22 Anion Gap 11 BUN 19 Creatinine 1.11 Est GFR ( Amer) > 60 Est GFR (Non-Af Amer) 50 L Glucose 74 L POC Glucose 87 86 Lactic Acid Calcium 8.9 Magnesium 1.9 Total Bilirubin Direct Bilirubin Indirect Bilirubin Neonat Total Bilirubin AST ALT Alkaline Phosphatase Creatine Kinase CK-MB (CK-2) Troponin I Total Protein Albumin Amylase Lipase Urine Color Urine Appearance Urine pH Ur Specific [place] Urine Protein Urine Glucose (UA) Urine Ketones Urine Blood Urine Nitrite Urine Bilirubin Urine Urobilinogen Ur Leukocyte Esterase Urine WBC (Auto) Urine RBC (Auto) Urine Bacteria (Auto) Urine Mucus (Auto) Urine Ascorbic Acid Stool Occult Blood Dose Start Time Dose Stop Time Time Trough Drawn Time Peak Drawn Gentamicin Peak Gentamicin Trough Vancomycin Trough C. difficile Tox (PCR) Influenza A (Rapid) Influenza B (Rapid) Slides for Path Review Blood Type Blood Type Confirm Antibody Screen Crossmatch 06/05/16 06/05/16 06/05/16 04:20 05:55 06:19 WBC 12.7 H RBC 3.36 L Hgb 9.6 L Hct 29.2 L MCV 87 MCH 28.7 MCHC 32.9 RDW 20.0 H Plt Count 200 Total Counted 100 Seg Neutrophils % Not Reportable Seg Neuts % (Manual) 88 H Band Neutrophils % 6 H Lymphocytes % Not Reportable Lymphocytes % (Manual) 2 L Atypical Lymphs % Monocytes % Not Reportable Monocytes % (Manual) 3 Eosinophils % Not Reportable Eosinophils % (Manual) 1 Basophils % Not Reportable Basophils % (Manual) 0 Metamyelocytes % Absolute Neutrophils Not Reportable Abs Neuts (Manual) 11.9 H Absolute Lymphocytes Not Reportable Abs Lymphs (Manual) 0.3 L Absolute Monocytes Not Reportable Abs Monocytes (Manual) 0.4 Absolute Eosinophils Not Reportable Absolute Eos (Manual) 0.1 Absolute Basophils Not Reportable Abs Basophils (Manual) 0.0 Nucleated RBCs Toxic Granulation 1+ Toxic Vacuolation Dohle Bodies Clumped Platelets Large Platelets Platelet Comment ADEQUATE Polychromasia 1+ Hypochromasia Poikilocytosis 1+ Basophilic Stippling PRESENT Anisocytosis 2+ Tear Drop Cells SLIGHT Ovalocytes 1+ [place] Cells Acanthocytes (Spur) Rouleaux Schistocytes PT INR Carbonic Acid 0.78 L HCO3/H2CO3 Ratio 22:1 ABG pH 7.44 ABG pCO2 25.8 L ABG pO2 84.1 ABG HCO3 17.2 L ABG Total CO2 18.0 L ABG O2 Saturation 96.8 ABG Base Excess -5.8 FiO2 2L Sodium Potassium Chloride Carbon Dioxide Anion Gap BUN Creatinine Est GFR ( Amer) Est GFR (Non-Af Amer) Glucose POC Glucose 85 Lactic Acid Calcium Magnesium Total Bilirubin Direct Bilirubin Indirect Bilirubin Neonat Total Bilirubin AST ALT Alkaline Phosphatase Creatine Kinase CK-MB (CK-2) Troponin I Total Protein Albumin Amylase Lipase Urine Color Urine Appearance Urine pH Ur Specific [place] Urine Protein Urine Glucose (UA) Urine Ketones Urine Blood Urine Nitrite Urine Bilirubin Urine Urobilinogen Ur Leukocyte Esterase Urine WBC (Auto) Urine RBC (Auto) Urine Bacteria (Auto) Urine Mucus (Auto) Urine Ascorbic Acid Stool Occult Blood Dose Start Time Dose Stop Time Time Trough Drawn Time Peak Drawn Gentamicin Peak Gentamicin Trough Vancomycin Trough C. difficile Tox (PCR) Influenza A (Rapid) Influenza B (Rapid) Slides for Path Review Blood Type Blood Type Confirm Antibody Screen Crossmatch 06/05/16 06/05/16 06/05/16 08:21 11:57 16:04 WBC RBC Hgb Hct MCV MCH MCHC RDW Plt Count Total Counted Seg Neutrophils % Seg Neuts % (Manual) Band Neutrophils % Lymphocytes % Lymphocytes % (Manual) Atypical Lymphs % Monocytes % Monocytes % (Manual) Eosinophils % Eosinophils % (Manual) Basophils % Basophils % (Manual) Metamyelocytes % Absolute Neutrophils Abs Neuts (Manual) Absolute Lymphocytes Abs Lymphs (Manual) Absolute Monocytes Abs Monocytes (Manual) Absolute Eosinophils Absolute Eos (Manual) Absolute Basophils Abs Basophils (Manual) Nucleated RBCs Toxic Granulation Toxic Vacuolation Dohle Bodies Clumped Platelets Large Platelets Platelet Comment Polychromasia Hypochromasia Poikilocytosis Basophilic Stippling Anisocytosis Tear Drop Cells Ovalocytes Alexus Cells Acanthocytes (Spur) Rouleaux Schistocytes PT INR Carbonic Acid HCO3/H2CO3 Ratio ABG pH ABG pCO2 ABG pO2 ABG HCO3 ABG Total CO2 ABG O2 Saturation ABG Base Excess FiO2 Sodium Potassium Chloride Carbon Dioxide Anion Gap BUN Creatinine Est GFR ( Amer) Est GFR (Non-Af Amer) Glucose POC Glucose 82 77 Lactic Acid Calcium Magnesium Total Bilirubin Direct Bilirubin Indirect Bilirubin Neonat Total Bilirubin AST ALT Alkaline Phosphatase Creatine Kinase CK-MB (CK-2) Troponin I Total Protein Albumin Amylase Lipase Urine Color Urine Appearance Urine pH Ur Specific [place] Urine Protein Urine Glucose (UA) Urine Ketones Urine Blood Urine Nitrite Urine Bilirubin Urine Urobilinogen Ur Leukocyte Esterase Urine WBC (Auto) Urine RBC (Auto) Urine Bacteria (Auto) Urine Mucus (Auto) Urine Ascorbic Acid Stool Occult Blood POSITIVE Dose Start Time Dose Stop Time Time Trough Drawn Time Peak Drawn Gentamicin Peak Gentamicin Trough Vancomycin Trough C. difficile Tox (PCR) Influenza A (Rapid) Influenza B (Rapid) Slides for Path Review Blood Type Blood Type Confirm Antibody Screen Crossmatch 06/05/16 06/06/16 06/06/16 22:23 05:05 06:45 WBC 12.0 H RBC 3.99 Hgb 11.3 L Hct 34.4 L MCV 86 MCH 28.4 MCHC 32.8 RDW 19.0 H Plt Count 241 Total Counted Seg Neutrophils % 88.0 H Seg Neuts % (Manual) Band Neutrophils % Lymphocytes % 7.9 L Lymphocytes % (Manual) Atypical Lymphs % Monocytes % 2.9 L Monocytes % (Manual) Eosinophils % 0.9 Eosinophils % (Manual) Basophils % 0.3 Basophils % (Manual) Metamyelocytes % Absolute Neutrophils 10.5 H Abs Neuts (Manual) Absolute Lymphocytes 1.0 Abs Lymphs (Manual) Absolute Monocytes 0.3 Abs Monocytes (Manual) Absolute Eosinophils 0.1 Absolute Eos (Manual) Absolute Basophils 0.0 Abs Basophils (Manual) Nucleated RBCs Toxic Granulation Toxic Vacuolation Dohle Bodies Clumped Platelets Large Platelets Platelet Comment Polychromasia Hypochromasia Poikilocytosis Basophilic Stippling Anisocytosis Tear Drop Cells Ovalocytes Alexus Cells Acanthocytes (Spur) Rouleaux Schistocytes PT INR Carbonic Acid HCO3/H2CO3 Ratio ABG pH ABG pCO2 ABG pO2 ABG HCO3 ABG Total CO2 ABG O2 Saturation ABG Base Excess FiO2 Sodium 145.5 H Potassium 2.5 L* Chloride 104 Carbon Dioxide 29 Anion Gap 13 BUN 15 Creatinine 1.25 Est GFR ( Amer) 53 L Est GFR (Non-Af Amer) 44 L Glucose 92 POC Glucose 105 Lactic Acid Calcium 8.7 Magnesium Total Bilirubin Direct Bilirubin Indirect Bilirubin Neonat Total Bilirubin AST ALT Alkaline Phosphatase Creatine Kinase CK-MB (CK-2) Troponin I Total Protein Albumin Amylase Lipase Urine Color Urine Appearance Urine pH Ur Specific [place] Urine Protein Urine Glucose (UA) Urine Ketones Urine Blood Urine Nitrite Urine Bilirubin Urine Urobilinogen Ur Leukocyte Esterase Urine WBC (Auto) Urine RBC (Auto) Urine Bacteria (Auto) Urine Mucus (Auto) Urine Ascorbic Acid Stool Occult Blood Dose Start Time Dose Stop Time Time Trough Drawn Time Peak Drawn Gentamicin Peak Gentamicin Trough Vancomycin Trough C. difficile Tox (PCR) Influenza A (Rapid) Influenza B (Rapid) Slides for Path Review Blood Type Blood Type Confirm Antibody Screen Crossmatch 06/06/16 06/06/16 06/06/16 06:45 06:46 09:05 WBC RBC Hgb Hct MCV MCH MCHC RDW Plt Count Total Counted Seg Neutrophils % Seg Neuts % (Manual) Band Neutrophils % Lymphocytes % Lymphocytes % (Manual) Atypical Lymphs % Monocytes % Monocytes % (Manual) Eosinophils % Eosinophils % (Manual) Basophils % Basophils % (Manual) Metamyelocytes % Absolute Neutrophils Abs Neuts (Manual) Absolute Lymphocytes Abs Lymphs (Manual) Absolute Monocytes Abs Monocytes (Manual) Absolute Eosinophils Absolute Eos (Manual) Absolute Basophils Abs Basophils (Manual) Nucleated RBCs Toxic Granulation Toxic Vacuolation Dohle Bodies Clumped Platelets Large Platelets Platelet Comment Polychromasia Hypochromasia Poikilocytosis Basophilic Stippling Anisocytosis Tear Drop Cells Ovalocytes Alexus Cells Acanthocytes (Spur) Rouleaux Schistocytes PT INR Carbonic Acid HCO3/H2CO3 Ratio ABG pH ABG pCO2 ABG pO2 ABG HCO3 ABG Total CO2 ABG O2 Saturation ABG Base Excess FiO2 Sodium 145.3 H 144.8 Potassium 2.5 L* 2.5 L* Chloride 102 100 Carbon Dioxide 30 31 H Anion Gap 13 14 BUN 15 15 Creatinine 1.30 H 1.25 Est GFR ( Amer) 51 L 53 L Est GFR (Non-Af Amer) 42 L 44 L Glucose 85 99 POC Glucose 161 H Lactic Acid Calcium 8.9 9.1 Magnesium Total Bilirubin 1.0 Direct Bilirubin 0.5 H Indirect Bilirubin Not Reportable Neonat Total Bilirubin Not Reportable AST 22 ALT 144 H Alkaline Phosphatase 87 Creatine Kinase CK-MB (CK-2) Troponin I Total Protein 5.4 L Albumin 2.8 L Amylase Lipase Urine Color Urine Appearance Urine pH Ur Specific [place] Urine Protein Urine Glucose (UA) Urine Ketones Urine Blood Urine Nitrite Urine Bilirubin Urine Urobilinogen Ur Leukocyte Esterase Urine WBC (Auto) Urine RBC (Auto) Urine Bacteria (Auto) Urine Mucus (Auto) Urine Ascorbic Acid Stool Occult Blood Dose Start Time Dose Stop Time Time Trough Drawn Time Peak Drawn Gentamicin Peak Gentamicin Trough Vancomycin Trough C. difficile Tox (PCR) Influenza A (Rapid) Influenza B (Rapid) Slides for Path Review Blood Type Blood Type Confirm Antibody Screen Crossmatch 06/06/16 06/06/16 06/06/16 11:28 16:18 16:40 WBC RBC Hgb Hct MCV MCH MCHC RDW Plt Count Total Counted Seg Neutrophils % Seg Neuts % (Manual) Band Neutrophils % Lymphocytes % Lymphocytes % (Manual) Atypical Lymphs % Monocytes % Monocytes % (Manual) Eosinophils % Eosinophils % (Manual) Basophils % Basophils % (Manual) Metamyelocytes % Absolute Neutrophils Abs Neuts (Manual) Absolute Lymphocytes Abs Lymphs (Manual) Absolute Monocytes Abs Monocytes (Manual) Absolute Eosinophils Absolute Eos (Manual) Absolute Basophils Abs Basophils (Manual) Nucleated RBCs Toxic Granulation Toxic Vacuolation Dohle Bodies Clumped Platelets Large Platelets Platelet Comment Polychromasia Hypochromasia Poikilocytosis Basophilic Stippling Anisocytosis Tear Drop Cells Ovalocytes Alexus Cells Acanthocytes (Spur) Rouleaux Schistocytes PT INR Carbonic Acid HCO3/H2CO3 Ratio ABG pH ABG pCO2 ABG pO2 ABG HCO3 ABG Total CO2 ABG O2 Saturation ABG Base Excess FiO2 Sodium 143.4 Potassium 3.1 L Chloride 99 Carbon Dioxide 33 H Anion Gap 11 BUN 16 Creatinine 1.22 Est GFR ( Amer) 55 L Est GFR (Non-Af Amer) 45 L Glucose 77 POC Glucose 152 H 108 Lactic Acid Calcium 8.7 Magnesium Total Bilirubin Direct Bilirubin Indirect Bilirubin Neonat Total Bilirubin AST ALT Alkaline Phosphatase Creatine Kinase CK-MB (CK-2) Troponin I Total Protein Albumin Amylase Lipase Urine Color Urine Appearance Urine pH Ur Specific [place] Urine Protein Urine Glucose (UA) Urine Ketones Urine Blood Urine Nitrite Urine Bilirubin Urine Urobilinogen Ur Leukocyte Esterase Urine WBC (Auto) Urine RBC (Auto) Urine Bacteria (Auto) Urine Mucus (Auto) Urine Ascorbic Acid Stool Occult Blood Dose Start Time Dose Stop Time Time Trough Drawn Time Peak Drawn Gentamicin Peak Gentamicin Trough Vancomycin Trough C. difficile Tox (PCR) Influenza A (Rapid) Influenza B (Rapid) Slides for Path Review Blood Type Blood Type Confirm Antibody Screen Crossmatch 06/07/16 06/07/16 06/07/16 00:43 05:10 05:45 WBC RBC Hgb Hct MCV MCH MCHC RDW Plt Count Total Counted Seg Neutrophils % Seg Neuts % (Manual) Band Neutrophils % Lymphocytes % Lymphocytes % (Manual) Atypical Lymphs % Monocytes % Monocytes % (Manual) Eosinophils % Eosinophils % (Manual) Basophils % Basophils % (Manual) Metamyelocytes % Absolute Neutrophils Abs Neuts (Manual) Absolute Lymphocytes Abs Lymphs (Manual) Absolute Monocytes Abs Monocytes (Manual) Absolute Eosinophils Absolute Eos (Manual) Absolute Basophils Abs Basophils (Manual) Nucleated RBCs Toxic Granulation Toxic Vacuolation Dohle Bodies Clumped Platelets Large Platelets Platelet Comment Polychromasia Hypochromasia Poikilocytosis Basophilic Stippling Anisocytosis Tear Drop Cells Ovalocytes Alexus Cells Acanthocytes (Spur) Rouleaux Schistocytes PT INR Carbonic Acid HCO3/H2CO3 Ratio ABG pH ABG pCO2 ABG pO2 ABG HCO3 ABG Total CO2 ABG O2 Saturation ABG Base Excess FiO2 Sodium 144.0 Potassium 2.7 L* Chloride 101 Carbon Dioxide 33 H Anion Gap 10 BUN 14 Creatinine 1.27 H Est GFR ( Amer) 52 L Est GFR (Non-Af Amer) 43 L Glucose 85 POC Glucose 93 86 Lactic Acid Calcium 8.3 L Magnesium 1.5 L Total Bilirubin 0.6 Direct Bilirubin 0.3 Indirect Bilirubin Not Reportable Neonat Total Bilirubin Not Reportable AST 21 ALT 109 H Alkaline Phosphatase 83 Creatine Kinase CK-MB (CK-2) Troponin I Total Protein 4.9 L Albumin 2.6 L Amylase Lipase Urine Color Urine Appearance Urine pH Ur Specific [place] Urine Protein Urine Glucose (UA) Urine Ketones Urine Blood Urine Nitrite Urine Bilirubin Urine Urobilinogen Ur Leukocyte Esterase Urine WBC (Auto) Urine RBC (Auto) Urine Bacteria (Auto) Urine Mucus (Auto) Urine Ascorbic Acid Stool Occult Blood Dose Start Time Dose Stop Time Time Trough Drawn Time Peak Drawn Gentamicin Peak Gentamicin Trough Vancomycin Trough C. difficile Tox (PCR) Influenza A (Rapid) Influenza B (Rapid) Slides for Path Review Blood Type Blood Type Confirm Antibody Screen Crossmatch 06/07/16 06/07/16 06/07/16 11:22 16:29 22:37 WBC RBC Hgb Hct MCV MCH MCHC RDW Plt Count Total Counted Seg Neutrophils % Seg Neuts % (Manual) Band Neutrophils % Lymphocytes % Lymphocytes % (Manual) Atypical Lymphs % Monocytes % Monocytes % (Manual) Eosinophils % Eosinophils % (Manual) Basophils % Basophils % (Manual) Metamyelocytes % Absolute Neutrophils Abs Neuts (Manual) Absolute Lymphocytes Abs Lymphs (Manual) Absolute Monocytes Abs Monocytes (Manual) Absolute Eosinophils Absolute Eos (Manual) Absolute Basophils Abs Basophils (Manual) Nucleated RBCs Toxic Granulation Toxic Vacuolation Dohle Bodies Clumped Platelets Large Platelets Platelet Comment Polychromasia Hypochromasia Poikilocytosis Basophilic Stippling Anisocytosis Tear Drop Cells Ovalocytes Alexus Cells Acanthocytes (Spur) Rouleaux Schistocytes PT INR Carbonic Acid HCO3/H2CO3 Ratio ABG pH ABG pCO2 ABG pO2 ABG HCO3 ABG Total CO2 ABG O2 Saturation ABG Base Excess FiO2 Sodium Potassium Chloride Carbon Dioxide Anion Gap BUN Creatinine Est GFR ( Amer) Est GFR (Non-Af Amer) Glucose POC Glucose 150 H 97 127 H Lactic Acid Calcium Magnesium Total Bilirubin Direct Bilirubin Indirect Bilirubin Neonat Total Bilirubin AST ALT Alkaline Phosphatase Creatine Kinase CK-MB (CK-2) Troponin I Total Protein Albumin Amylase Lipase Urine Color Urine Appearance Urine pH Ur Specific [place] Urine Protein Urine Glucose (UA) Urine Ketones Urine Blood Urine Nitrite Urine Bilirubin Urine Urobilinogen Ur Leukocyte Esterase Urine WBC (Auto) Urine RBC (Auto) Urine Bacteria (Auto) Urine Mucus (Auto) Urine Ascorbic Acid Stool Occult Blood Dose Start Time Dose Stop Time Time Trough Drawn Time Peak Drawn Gentamicin Peak Gentamicin Trough Vancomycin Trough C. difficile Tox (PCR) Influenza A (Rapid) Influenza B (Rapid) Slides for Path Review Blood Type Blood Type Confirm Antibody Screen Crossmatch 06/08/16 06/08/16 06/08/16 06:08 07:45 11:27 WBC RBC Hgb Hct MCV MCH MCHC RDW Plt Count Total Counted Seg Neutrophils % Seg Neuts % (Manual) Band Neutrophils % Lymphocytes % Lymphocytes % (Manual) Atypical Lymphs % Monocytes % Monocytes % (Manual) Eosinophils % Eosinophils % (Manual) Basophils % Basophils % (Manual) Metamyelocytes % Absolute Neutrophils Abs Neuts (Manual) Absolute Lymphocytes Abs Lymphs (Manual) Absolute Monocytes Abs Monocytes (Manual) Absolute Eosinophils Absolute Eos (Manual) Absolute Basophils Abs Basophils (Manual) Nucleated RBCs Toxic Granulation Toxic Vacuolation Dohle Bodies Clumped Platelets Large Platelets Platelet Comment Polychromasia Hypochromasia Poikilocytosis Basophilic Stippling Anisocytosis Tear Drop Cells Ovalocytes [place] Cells Acanthocytes (Spur) Rouleaux Schistocytes PT INR Carbonic Acid HCO3/H2CO3 Ratio ABG pH ABG pCO2 ABG pO2 ABG HCO3 ABG Total CO2 ABG O2 Saturation ABG Base Excess FiO2 Sodium 144.5 Potassium 3.1 L Chloride 102 Carbon Dioxide 35 H Anion Gap 8 BUN 13 Creatinine 1.23 Est GFR ( Amer) 54 L Est GFR (Non-Af Amer) 45 L Glucose 82 POC Glucose 84 74 Lactic Acid Calcium 8.6 Magnesium Total Bilirubin Direct Bilirubin Indirect Bilirubin Neonat Total Bilirubin AST ALT Alkaline Phosphatase Creatine Kinase CK-MB (CK-2) Troponin I Total Protein Albumin Amylase Lipase Urine Color Urine Appearance Urine pH Ur Specific [place] Urine Protein Urine Glucose (UA) Urine Ketones Urine Blood Urine Nitrite Urine Bilirubin Urine Urobilinogen Ur Leukocyte Esterase Urine WBC (Auto) Urine RBC (Auto) Urine Bacteria (Auto) Urine Mucus (Auto) Urine Ascorbic Acid Stool Occult Blood Dose Start Time Dose Stop Time Time Trough Drawn Time Peak Drawn Gentamicin Peak Gentamicin Trough Vancomycin Trough C. difficile Tox (PCR) Influenza A (Rapid) Influenza B (Rapid) Slides for Path Review Blood Type Blood Type Confirm Antibody Screen Crossmatch 06/08/16 06/08/16 06/09/16 15:40 22:27 04:00 WBC RBC Hgb Hct MCV MCH MCHC RDW Plt Count Total Counted Seg Neutrophils % Seg Neuts % (Manual) Band Neutrophils % Lymphocytes % Lymphocytes % (Manual) Atypical Lymphs % Monocytes % Monocytes % (Manual) Eosinophils % Eosinophils % (Manual) Basophils % Basophils % (Manual) Metamyelocytes % Absolute Neutrophils Abs Neuts (Manual) Absolute Lymphocytes Abs Lymphs (Manual) Absolute Monocytes Abs Monocytes (Manual) Absolute Eosinophils Absolute Eos (Manual) Absolute Basophils Abs Basophils (Manual) Nucleated RBCs Toxic Granulation Toxic Vacuolation Dohle Bodies Clumped Platelets Large Platelets Platelet Comment Polychromasia Hypochromasia Poikilocytosis Basophilic Stippling Anisocytosis Tear Drop Cells Ovalocytes [place] Cells Acanthocytes (Spur) Rouleaux Schistocytes PT INR Carbonic Acid HCO3/H2CO3 Ratio ABG pH ABG pCO2 ABG pO2 ABG HCO3 ABG Total CO2 ABG O2 Saturation ABG Base Excess FiO2 Sodium 143.3 Potassium 2.9 L* Chloride 102 Carbon Dioxide 35 H Anion Gap 6 BUN 13 Creatinine 1.19 Est GFR ( Amer) 56 L Est GFR (Non-Af Amer) 47 L Glucose 81 POC Glucose 90 105 Lactic Acid Calcium 9.0 Magnesium Total Bilirubin Direct Bilirubin Indirect Bilirubin Neonat Total Bilirubin AST ALT Alkaline Phosphatase Creatine Kinase CK-MB (CK-2) Troponin I Total Protein Albumin Amylase Lipase Urine Color Urine Appearance Urine pH Ur Specific [place] Urine Protein Urine Glucose (UA) Urine Ketones Urine Blood Urine Nitrite Urine Bilirubin Urine Urobilinogen Ur Leukocyte Esterase Urine WBC (Auto) Urine RBC (Auto) Urine Bacteria (Auto) Urine Mucus (Auto) Urine Ascorbic Acid Stool Occult Blood Dose Start Time Dose Stop Time Time Trough Drawn Time Peak Drawn Gentamicin Peak Gentamicin Trough Vancomycin Trough C. difficile Tox (PCR) Influenza A (Rapid) Influenza B (Rapid) Slides for Path Review Blood Type Blood Type Confirm Antibody Screen Crossmatch 06/09/16 06/09/16 06/09/16 04:00 11:23 15:21 WBC RBC Hgb Hct MCV MCH MCHC RDW Plt Count Total Counted Seg Neutrophils % Seg Neuts % (Manual) Band Neutrophils % Lymphocytes % Lymphocytes % (Manual) Atypical Lymphs % Monocytes % Monocytes % (Manual) Eosinophils % Eosinophils % (Manual) Basophils % Basophils % (Manual) Metamyelocytes % Absolute Neutrophils Abs Neuts (Manual) Absolute Lymphocytes Abs Lymphs (Manual) Absolute Monocytes Abs Monocytes (Manual) Absolute Eosinophils Absolute Eos (Manual) Absolute Basophils Abs Basophils (Manual) Nucleated RBCs Toxic Granulation Toxic Vacuolation Dohle Bodies Clumped Platelets Large Platelets Platelet Comment Polychromasia Hypochromasia Poikilocytosis Basophilic Stippling Anisocytosis Tear Drop Cells Ovalocytes [place] Cells Acanthocytes (Spur) Rouleaux Schistocytes PT INR Carbonic Acid HCO3/H2CO3 Ratio ABG pH ABG pCO2 ABG pO2 ABG HCO3 ABG Total CO2 ABG O2 Saturation ABG Base Excess FiO2 Sodium Potassium Chloride Carbon Dioxide Anion Gap BUN Creatinine Est GFR ( Amer) Est GFR (Non-Af Amer) Glucose POC Glucose 82 108 Lactic Acid Calcium Magnesium 1.9 Total Bilirubin Direct Bilirubin Indirect Bilirubin Neonat Total Bilirubin AST ALT Alkaline Phosphatase Creatine Kinase CK-MB (CK-2) Troponin I Total Protein Albumin Amylase Lipase Urine Color Urine Appearance Urine pH Ur Specific [place] Urine Protein Urine Glucose (UA) Urine Ketones Urine Blood Urine Nitrite Urine Bilirubin Urine Urobilinogen Ur Leukocyte Esterase Urine WBC (Auto) Urine RBC (Auto) Urine Bacteria (Auto) Urine Mucus (Auto) Urine Ascorbic Acid Stool Occult Blood Dose Start Time Dose Stop Time Time Trough Drawn Time Peak Drawn Gentamicin Peak Gentamicin Trough Vancomycin Trough C. difficile Tox (PCR) Influenza A (Rapid) Influenza B (Rapid) Slides for Path Review Blood Type Blood Type Confirm Antibody Screen Crossmatch 0406/10/[id number] 06/10/16 22:08 06:25 07:28 WBC RBC Hgb Hct MCV MCH MCHC RDW Plt Count Total Counted Seg Neutrophils % Seg Neuts % (Manual) Band Neutrophils % Lymphocytes % Lymphocytes % (Manual) Atypical Lymphs % Monocytes % Monocytes % (Manual) Eosinophils % Eosinophils % (Manual) Basophils % Basophils % (Manual) Metamyelocytes % Absolute Neutrophils Abs Neuts (Manual) Absolute Lymphocytes Abs Lymphs (Manual) Absolute Monocytes Abs Monocytes (Manual) Absolute Eosinophils Absolute Eos (Manual) Absolute Basophils Abs Basophils (Manual) Nucleated RBCs Toxic Granulation Toxic Vacuolation Dohle Bodies Clumped Platelets Large Platelets Platelet Comment Polychromasia Hypochromasia Poikilocytosis Basophilic Stippling Anisocytosis Tear Drop Cells Ovalocytes [place] Cells Acanthocytes (Spur) Rouleaux Schistocytes PT INR Carbonic Acid HCO3/H2CO3 Ratio ABG pH ABG pCO2 ABG pO2 ABG HCO3 ABG Total CO2 ABG O2 Saturation ABG Base Excess FiO2 Sodium 142.5 Potassium 3.6 Chloride 101 Carbon Dioxide 33 H Anion Gap 9 BUN 9 Creatinine 1.09 Est GFR ( Amer) > 60 Est GFR (Non-Af Amer) 52 L Glucose 78 POC Glucose 83 92 Lactic Acid Calcium 8.9 Magnesium Total Bilirubin Direct Bilirubin Indirect Bilirubin Neonat Total Bilirubin AST ALT Alkaline Phosphatase Creatine Kinase CK-MB (CK-2) Troponin I Total Protein Albumin Amylase Lipase Urine Color Urine Appearance Urine pH Ur Specific [place] Urine Protein Urine Glucose (UA) Urine Ketones Urine Blood Urine Nitrite Urine Bilirubin Urine Urobilinogen Ur Leukocyte Esterase Urine WBC (Auto) Urine RBC (Auto) Urine Bacteria (Auto) Urine Mucus (Auto) Urine Ascorbic Acid Stool Occult Blood Dose Start Time Dose Stop Time Time Trough Drawn Time Peak Drawn Gentamicin Peak Gentamicin Trough Vancomycin Trough C. difficile Tox (PCR) Influenza A (Rapid) Influenza B (Rapid) Slides for Path Review Blood Type Blood Type Confirm Antibody Screen Crossmatch 06/10/16 06/10/16 06/10/16 11:05 15:51 22:37 WBC RBC Hgb Hct MCV MCH MCHC RDW Plt Count Total Counted Seg Neutrophils % Seg Neuts % (Manual) Band Neutrophils % Lymphocytes % Lymphocytes % (Manual) Atypical Lymphs % Monocytes % Monocytes % (Manual) Eosinophils % Eosinophils % (Manual) Basophils % Basophils % (Manual) Metamyelocytes % Absolute Neutrophils Abs Neuts (Manual) Absolute Lymphocytes Abs Lymphs (Manual) Absolute Monocytes Abs Monocytes (Manual) Absolute Eosinophils Absolute Eos (Manual) Absolute Basophils Abs Basophils (Manual) Nucleated RBCs Toxic Granulation Toxic Vacuolation Dohle Bodies Clumped Platelets Large Platelets Platelet Comment Polychromasia Hypochromasia Poikilocytosis Basophilic Stippling Anisocytosis Tear Drop Cells Ovalocytes Alexus Cells Acanthocytes (Spur) Rouleaux Schistocytes PT INR Carbonic Acid HCO3/H2CO3 Ratio ABG pH ABG pCO2 ABG pO2 ABG HCO3 ABG Total CO2 ABG O2 Saturation ABG Base Excess FiO2 Sodium Potassium Chloride Carbon Dioxide Anion Gap BUN Creatinine Est GFR ( Amer) Est GFR (Non-Af Amer) Glucose POC Glucose 104 86 146 H Lactic Acid Calcium Magnesium Total Bilirubin Direct Bilirubin Indirect Bilirubin Neonat Total Bilirubin AST ALT Alkaline Phosphatase Creatine Kinase CK-MB (CK-2) Troponin I Total Protein Albumin Amylase Lipase Urine Color Urine Appearance Urine pH Ur Specific [place] Urine Protein Urine Glucose (UA) Urine Ketones Urine Blood Urine Nitrite Urine Bilirubin Urine Urobilinogen Ur Leukocyte Esterase Urine WBC (Auto) Urine RBC (Auto) Urine Bacteria (Auto) Urine Mucus (Auto) Urine Ascorbic Acid Stool Occult Blood Dose Start Time Dose Stop Time Time Trough Drawn Time Peak Drawn Gentamicin Peak Gentamicin Trough Vancomycin Trough C. difficile Tox (PCR) Influenza A (Rapid) Influenza B (Rapid) Slides for Path Review Blood Type Blood Type Confirm Antibody Screen Crossmatch 06/11/16 06/11/16 06/11/16 05:45 06:14 10:58 WBC RBC Hgb Hct MCV MCH MCHC RDW Plt Count Total Counted Seg Neutrophils % Seg Neuts % (Manual) Band Neutrophils % Lymphocytes % Lymphocytes % (Manual) Atypical Lymphs % Monocytes % Monocytes % (Manual) Eosinophils % Eosinophils % (Manual) Basophils % Basophils % (Manual) Metamyelocytes % Absolute Neutrophils Abs Neuts (Manual) Absolute Lymphocytes Abs Lymphs (Manual) Absolute Monocytes Abs Monocytes (Manual) Absolute Eosinophils Absolute Eos (Manual) Absolute Basophils Abs Basophils (Manual) Nucleated RBCs Toxic Granulation Toxic Vacuolation Dohle Bodies Clumped Platelets Large Platelets Platelet Comment Polychromasia Hypochromasia Poikilocytosis Basophilic Stippling Anisocytosis Tear Drop Cells Ovalocytes [place] Cells Acanthocytes (Spur) Rouleaux Schistocytes PT INR Carbonic Acid HCO3/H2CO3 Ratio ABG pH ABG pCO2 ABG pO2 ABG HCO3 ABG Total CO2 ABG O2 Saturation ABG Base Excess FiO2 Sodium 142.0 Potassium 3.5 L Chloride 99 Carbon Dioxide 35 H Anion Gap 8 BUN 11 Creatinine 1.31 H Est GFR ( Amer) 50 L Est GFR (Non-Af Amer) 42 L Glucose 79 POC Glucose 102 106 Lactic Acid Calcium 9.1 Magnesium Total Bilirubin Direct Bilirubin Indirect Bilirubin Neonat Total Bilirubin AST ALT Alkaline Phosphatase Creatine Kinase CK-MB (CK-2) Troponin I Total Protein Albumin Amylase Lipase Urine Color Urine Appearance Urine pH Ur Specific [place] Urine Protein Urine Glucose (UA) Urine Ketones Urine Blood Urine Nitrite Urine Bilirubin Urine Urobilinogen Ur Leukocyte Esterase Urine WBC (Auto) Urine RBC (Auto) Urine Bacteria (Auto) Urine Mucus (Auto) Urine Ascorbic Acid Stool Occult Blood Dose Start Time Dose Stop Time Time Trough Drawn Time Peak Drawn Gentamicin Peak Gentamicin Trough Vancomycin Trough C. difficile Tox (PCR) Influenza A (Rapid) Influenza B (Rapid) Slides for Path Review Blood Type Blood Type Confirm Antibody Screen Crossmatch 06/11/16 06/11/16 06/12/16 17:30 21:54 04:40 WBC RBC Hgb Hct MCV MCH MCHC RDW Plt Count Total Counted Seg Neutrophils % Seg Neuts % (Manual) Band Neutrophils % Lymphocytes % Lymphocytes % (Manual) Atypical Lymphs % Monocytes % Monocytes % (Manual) Eosinophils % Eosinophils % (Manual) Basophils % Basophils % (Manual) Metamyelocytes % Absolute Neutrophils Abs Neuts (Manual) Absolute Lymphocytes Abs Lymphs (Manual) Absolute Monocytes Abs Monocytes (Manual) Absolute Eosinophils Absolute Eos (Manual) Absolute Basophils Abs Basophils (Manual) Nucleated RBCs Toxic Granulation Toxic Vacuolation Dohle Bodies Clumped Platelets Large Platelets Platelet Comment Polychromasia Hypochromasia Poikilocytosis Basophilic Stippling Anisocytosis Tear Drop Cells Ovalocytes [place] Cells Acanthocytes (Spur) Rouleaux Schistocytes PT INR Carbonic Acid HCO3/H2CO3 Ratio ABG pH ABG pCO2 ABG pO2 ABG HCO3 ABG Total CO2 ABG O2 Saturation ABG Base Excess FiO2 Sodium 143.0 Potassium 3.5 L Chloride 99 Carbon Dioxide 33 H Anion Gap 11 BUN 10 Creatinine 1.34 H Est GFR ( Amer) 49 L Est GFR (Non-Af Amer) 41 L Glucose 75 POC Glucose 118 H 93 Lactic Acid Calcium 9.2 Magnesium Total Bilirubin Direct Bilirubin Indirect Bilirubin Neonat Total Bilirubin AST ALT Alkaline Phosphatase Creatine Kinase CK-MB (CK-2) Troponin I Total Protein Albumin Amylase Lipase Urine Color Urine Appearance Urine pH Ur Specific [place] Urine Protein Urine Glucose (UA) Urine Ketones Urine Blood Urine Nitrite Urine Bilirubin Urine Urobilinogen Ur Leukocyte Esterase Urine WBC (Auto) Urine RBC (Auto) Urine Bacteria (Auto) Urine Mucus (Auto) Urine Ascorbic Acid Stool Occult Blood Dose Start Time Dose Stop Time Time Trough Drawn Time Peak Drawn Gentamicin Peak Gentamicin Trough Vancomycin Trough C. difficile Tox (PCR) Influenza A (Rapid) Influenza B (Rapid) Slides for Path Review Blood Type Blood Type Confirm Antibody Screen Crossmatch 06/12/16 06/12/16 06/12/16 06:36 12:50 16:00 WBC RBC Hgb Hct MCV MCH MCHC RDW Plt Count Total Counted Seg Neutrophils % Seg Neuts % (Manual) Band Neutrophils % Lymphocytes % Lymphocytes % (Manual) Atypical Lymphs % Monocytes % Monocytes % (Manual) Eosinophils % Eosinophils % (Manual) Basophils % Basophils % (Manual) Metamyelocytes % Absolute Neutrophils Abs Neuts (Manual) Absolute Lymphocytes Abs Lymphs (Manual) Absolute Monocytes Abs Monocytes (Manual) Absolute Eosinophils Absolute Eos (Manual) Absolute Basophils Abs Basophils (Manual) Nucleated RBCs Toxic Granulation Toxic Vacuolation Dohle Bodies Clumped Platelets Large Platelets Platelet Comment Polychromasia Hypochromasia Poikilocytosis Basophilic Stippling Anisocytosis Tear Drop Cells Ovalocytes [place] Cells Acanthocytes (Spur) Rouleaux Schistocytes PT INR Carbonic Acid HCO3/H2CO3 Ratio ABG pH ABG pCO2 ABG pO2 ABG HCO3 ABG Total CO2 ABG O2 Saturation ABG Base Excess FiO2 Sodium Potassium Chloride Carbon Dioxide Anion Gap BUN Creatinine Est GFR ( Amer) Est GFR (Non-Af Amer) Glucose POC Glucose 80 105 90 Lactic Acid Calcium Magnesium Total Bilirubin Direct Bilirubin Indirect Bilirubin Neonat Total Bilirubin AST ALT Alkaline Phosphatase Creatine Kinase CK-MB (CK-2) Troponin I Total Protein Albumin Amylase Lipase Urine Color Urine Appearance Urine pH Ur Specific [place] Urine Protein Urine Glucose (UA) Urine Ketones Urine Blood Urine Nitrite Urine Bilirubin Urine Urobilinogen Ur Leukocyte Esterase Urine WBC (Auto) Urine RBC (Auto) Urine Bacteria (Auto) Urine Mucus (Auto) Urine Ascorbic Acid Stool Occult Blood Dose Start Time Dose Stop Time Time Trough Drawn Time Peak Drawn Gentamicin Peak Gentamicin Trough Vancomycin Trough C. difficile Tox (PCR) Influenza A (Rapid) Influenza B (Rapid) Slides for Path Review Blood Type Blood Type Confirm Antibody Screen Crossmatch 06/12/16 06/13/16 06/13/16 21:59 04:40 04:40 WBC 8.0 RBC 3.50 L Hgb 10.1 L Hct 30.7 L MCV 88 MCH 28.8 MCHC 32.8 RDW 18.0 H Plt Count 296 Total Counted Seg Neutrophils % 86.9 H Seg Neuts % (Manual) Band Neutrophils % Lymphocytes % 8.7 L Lymphocytes % (Manual) Atypical Lymphs % Monocytes % 3.7 Monocytes % (Manual) Eosinophils % 0.0 Eosinophils % (Manual) Basophils % 0.7 Basophils % (Manual) Metamyelocytes % Absolute Neutrophils 7.0 Abs Neuts (Manual) Absolute Lymphocytes 0.7 Abs Lymphs (Manual) Absolute Monocytes 0.3 Abs Monocytes (Manual) Absolute Eosinophils 0.0 Absolute Eos (Manual) Absolute Basophils 0.1 Abs Basophils (Manual) Nucleated RBCs Toxic Granulation Toxic Vacuolation Dohle Bodies Clumped Platelets Large Platelets Platelet Comment Polychromasia Hypochromasia Poikilocytosis Basophilic Stippling Anisocytosis Tear Drop Cells Ovalocytes Alexus Cells Acanthocytes (Spur) Rouleaux Schistocytes PT INR Carbonic Acid HCO3/H2CO3 Ratio ABG pH ABG pCO2 ABG pO2 ABG HCO3 ABG Total CO2 ABG O2 Saturation ABG Base Excess FiO2 Sodium 143.7 Potassium 4.4 Chloride 100 Carbon Dioxide 32 H Anion Gap 12 BUN 16 Creatinine 1.42 H Est GFR ( Amer) 46 L Est GFR (Non-Af Amer) 38 L Glucose 131 H POC Glucose 102 Lactic Acid Calcium 9.3 Magnesium 2.1 Total Bilirubin 0.5 Direct Bilirubin 0.3 Indirect Bilirubin Not Reportable Neonat Total Bilirubin Not Reportable AST 17 ALT 41 Alkaline Phosphatase 86 Creatine Kinase CK-MB (CK-2) Troponin I Total Protein 6.0 L Albumin 2.9 L Amylase Lipase Urine Color Urine Appearance Urine pH Ur Specific [place] Urine Protein Urine Glucose (UA) Urine Ketones Urine Blood Urine Nitrite Urine Bilirubin Urine Urobilinogen Ur Leukocyte Esterase Urine WBC (Auto) Urine RBC (Auto) Urine Bacteria (Auto) Urine Mucus (Auto) Urine Ascorbic Acid Stool Occult Blood Dose Start Time Dose Stop Time Time Trough Drawn Time Peak Drawn Gentamicin Peak Gentamicin Trough Vancomycin Trough C. difficile Tox (PCR) Influenza A (Rapid) Influenza B (Rapid) Slides for Path Review Blood Type Blood Type Confirm Antibody Screen Crossmatch 06/13/16 06/13/16 06/13/16 05:58 11:27 16:16 WBC RBC Hgb Hct MCV MCH MCHC RDW Plt Count Total Counted Seg Neutrophils % Seg Neuts % (Manual) Band Neutrophils % Lymphocytes % Lymphocytes % (Manual) Atypical Lymphs % Monocytes % Monocytes % (Manual) Eosinophils % Eosinophils % (Manual) Basophils % Basophils % (Manual) Metamyelocytes % Absolute Neutrophils Abs Neuts (Manual) Absolute Lymphocytes Abs Lymphs (Manual) Absolute Monocytes Abs Monocytes (Manual) Absolute Eosinophils Absolute Eos (Manual) Absolute Basophils Abs Basophils (Manual) Nucleated RBCs Toxic Granulation Toxic Vacuolation Dohle Bodies Clumped Platelets Large Platelets Platelet Comment Polychromasia Hypochromasia Poikilocytosis Basophilic Stippling Anisocytosis Tear Drop Cells Ovalocytes Alexus Cells Acanthocytes (Spur) Rouleaux Schistocytes PT INR Carbonic Acid HCO3/H2CO3 Ratio ABG pH ABG pCO2 ABG pO2 ABG HCO3 ABG Total CO2 ABG O2 Saturation ABG Base Excess FiO2 Sodium Potassium Chloride Carbon Dioxide Anion Gap BUN Creatinine Est GFR ( Amer) Est GFR (Non-Af Amer) Glucose POC Glucose 171 H 123 H 228 H Lactic Acid Calcium Magnesium Total Bilirubin Direct Bilirubin Indirect Bilirubin Neonat Total Bilirubin AST ALT Alkaline Phosphatase Creatine Kinase CK-MB (CK-2) Troponin I Total Protein Albumin Amylase Lipase Urine Color Urine Appearance Urine pH Ur Specific [place] Urine Protein Urine Glucose (UA) Urine Ketones Urine Blood Urine Nitrite Urine Bilirubin Urine Urobilinogen Ur Leukocyte Esterase Urine WBC (Auto) Urine RBC (Auto) Urine Bacteria (Auto) Urine Mucus (Auto) Urine Ascorbic Acid Stool Occult Blood Dose Start Time Dose Stop Time Time Trough Drawn Time Peak Drawn Gentamicin Peak Gentamicin Trough Vancomycin Trough C. difficile Tox (PCR) Influenza A (Rapid) Influenza B (Rapid) Slides for Path Review Blood Type Blood Type Confirm Antibody Screen Crossmatch 06/13/16 06/14/16 06/14/16 21:54 04:15 06:30 WBC 9.5 RBC 3.47 L Hgb 9.9 L Hct 30.1 L MCV 87 MCH 28.5 MCHC 32.8 RDW 17.4 H Plt Count 333 Total Counted Seg Neutrophils % 69.9 Seg Neuts % (Manual) Band Neutrophils % Lymphocytes % 18.8 Lymphocytes % (Manual) Atypical Lymphs % Monocytes % 9.4 Monocytes % (Manual) Eosinophils % 0.8 Eosinophils % (Manual) Basophils % 1.1 Basophils % (Manual) Metamyelocytes % Absolute Neutrophils 6.7 Abs Neuts (Manual) Absolute Lymphocytes 1.8 Abs Lymphs (Manual) Absolute Monocytes 0.9 Abs Monocytes (Manual) Absolute Eosinophils 0.1 Absolute Eos (Manual) Absolute Basophils 0.1 Abs Basophils (Manual) Nucleated RBCs Toxic Granulation Toxic Vacuolation Dohle Bodies Clumped Platelets Large Platelets Platelet Comment Polychromasia Hypochromasia Poikilocytosis Basophilic Stippling Anisocytosis Tear Drop Cells Ovalocytes Alexus Cells Acanthocytes (Spur) Rouleaux Schistocytes PT INR Carbonic Acid HCO3/H2CO3 Ratio ABG pH ABG pCO2 ABG pO2 ABG HCO3 ABG Total CO2 ABG O2 Saturation ABG Base Excess FiO2 Sodium 143.5 Potassium 3.3 L Chloride 103 Carbon Dioxide 31 H Anion Gap 10 BUN 24 H Creatinine 1.50 H Est GFR ( Amer) 43 L Est GFR (Non-Af Amer) 36 L Glucose 81 POC Glucose 178 H Lactic Acid Calcium 9.3 Magnesium 2.0 Total Bilirubin Direct Bilirubin Indirect Bilirubin Neonat Total Bilirubin AST ALT Alkaline Phosphatase Creatine Kinase CK-MB (CK-2) Troponin I Total Protein Albumin Amylase Lipase Urine Color Urine Appearance Urine pH Ur Specific [place] Urine Protein Urine Glucose (UA) Urine Ketones Urine Blood Urine Nitrite Urine Bilirubin Urine Urobilinogen Ur Leukocyte Esterase Urine WBC (Auto) Urine RBC (Auto) Urine Bacteria (Auto) Urine Mucus (Auto) Urine Ascorbic Acid Stool Occult Blood Dose Start Time Dose Stop Time Time Trough Drawn Time Peak Drawn Gentamicin Peak Gentamicin Trough Vancomycin Trough C. difficile Tox (PCR) Influenza A (Rapid) Influenza B (Rapid) Slides for Path Review Blood Type Blood Type Confirm Antibody Screen Crossmatch 06/14/16 06/14/16 06/14/16 06:30 12:12 17:15 WBC RBC Hgb Hct MCV MCH MCHC RDW Plt Count Total Counted Seg Neutrophils % Seg Neuts % (Manual) Band Neutrophils % Lymphocytes % Lymphocytes % (Manual) Atypical Lymphs % Monocytes % Monocytes % (Manual) Eosinophils % Eosinophils % (Manual) Basophils % Basophils % (Manual) Metamyelocytes % Absolute Neutrophils Abs Neuts (Manual) Absolute Lymphocytes Abs Lymphs (Manual) Absolute Monocytes Abs Monocytes (Manual) Absolute Eosinophils Absolute Eos (Manual) Absolute Basophils Abs Basophils (Manual) Nucleated RBCs Toxic Granulation Toxic Vacuolation Dohle Bodies Clumped Platelets Large Platelets Platelet Comment Polychromasia Hypochromasia Poikilocytosis Basophilic Stippling Anisocytosis Tear Drop Cells Ovalocytes Alexus Cells Acanthocytes (Spur) Rouleaux Schistocytes PT INR Carbonic Acid HCO3/H2CO3 Ratio ABG pH ABG pCO2 ABG pO2 ABG HCO3 ABG Total CO2 ABG O2 Saturation ABG Base Excess FiO2 Sodium Potassium Chloride Carbon Dioxide Anion Gap BUN Creatinine Est GFR ( Amer) Est GFR (Non-Af Amer) Glucose POC Glucose 77 99 214 H Lactic Acid Calcium Magnesium Total Bilirubin Direct Bilirubin Indirect Bilirubin Neonat Total Bilirubin AST ALT Alkaline Phosphatase Creatine Kinase CK-MB (CK-2) Troponin I Total Protein Albumin Amylase Lipase Urine Color Urine Appearance Urine pH Ur Specific [place] Urine Protein Urine Glucose (UA) Urine Ketones Urine Blood Urine Nitrite Urine Bilirubin Urine Urobilinogen Ur Leukocyte Esterase Urine WBC (Auto) Urine RBC (Auto) Urine Bacteria (Auto) Urine Mucus (Auto) Urine Ascorbic Acid Stool Occult Blood Dose Start Time Dose Stop Time Time Trough Drawn Time Peak Drawn Gentamicin Peak Gentamicin Trough Vancomycin Trough C. difficile Tox (PCR) Influenza A (Rapid) Influenza B (Rapid) Slides for Path Review Blood Type Blood Type Confirm Antibody Screen Crossmatch 06/14/16 06/15/16 06/15/16 22:32 06:20 06:20 WBC 10.5 RBC 3.25 L Hgb 9.5 L Hct 27.9 L MCV 86 MCH 29.4 MCHC 34.2 RDW 17.1 H Plt Count 330 Total Counted Seg Neutrophils % 70.3 Seg Neuts % (Manual) Band Neutrophils % Lymphocytes % 16.3 Lymphocytes % (Manual) Atypical Lymphs % Monocytes % 11.8 Monocytes % (Manual) Eosinophils % 0.5 Eosinophils % (Manual) Basophils % 1.1 Basophils % (Manual) Metamyelocytes % Absolute Neutrophils 7.4 Abs Neuts (Manual) Absolute Lymphocytes 1.7 Abs Lymphs (Manual) Absolute Monocytes 1.2 Abs Monocytes (Manual) Absolute Eosinophils 0.1 Absolute Eos (Manual) Absolute Basophils 0.1 Abs Basophils (Manual) Nucleated RBCs Toxic Granulation Toxic Vacuolation Dohle Bodies Clumped Platelets Large Platelets Platelet Comment Polychromasia Hypochromasia Poikilocytosis Basophilic Stippling Anisocytosis Tear Drop Cells Ovalocytes [place] Cells Acanthocytes (Spur) Rouleaux Schistocytes PT INR Carbonic Acid HCO3/H2CO3 Ratio ABG pH ABG pCO2 ABG pO2 ABG HCO3 ABG Total CO2 ABG O2 Saturation ABG Base Excess FiO2 Sodium 142.8 Potassium 3.4 L Chloride 101 Carbon Dioxide 30 Anion Gap 12 BUN 17 Creatinine 1.35 H Est GFR ( Amer) 49 L Est GFR (Non-Af Amer) 40 L Glucose 77 POC Glucose 93 Lactic Acid Calcium 9.3 Magnesium 2.0 Total Bilirubin Direct Bilirubin Indirect Bilirubin Neonat Total Bilirubin AST ALT Alkaline Phosphatase Creatine Kinase CK-MB (CK-2) Troponin I Total Protein Albumin Amylase Lipase Urine Color Urine Appearance Urine pH Ur Specific [place] Urine Protein Urine Glucose (UA) Urine Ketones Urine Blood Urine Nitrite Urine Bilirubin Urine Urobilinogen Ur Leukocyte Esterase Urine WBC (Auto) Urine RBC (Auto) Urine Bacteria (Auto) Urine Mucus (Auto) Urine Ascorbic Acid Stool Occult Blood Dose Start Time Dose Stop Time Time Trough Drawn Time Peak Drawn Gentamicin Peak Gentamicin Trough Vancomycin Trough C. difficile Tox (PCR) Influenza A (Rapid) Influenza B (Rapid) Slides for Path Review Blood Type Blood Type Confirm Antibody Screen Crossmatch 06/15/16 06/15/16 06/15/16 06:35 11:11 15:30 WBC 13.5 H RBC 3.36 L Hgb 9.4 L Hct 29.1 L MCV 87 MCH 28.0 MCHC 32.3 RDW 17.2 H Plt Count 328 Total Counted Seg Neutrophils % Seg Neuts % (Manual) Band Neutrophils % Lymphocytes % Lymphocytes % (Manual) Atypical Lymphs % Monocytes % Monocytes % (Manual) Eosinophils % Eosinophils % (Manual) Basophils % Basophils % (Manual) Metamyelocytes % Absolute Neutrophils Abs Neuts (Manual) Absolute Lymphocytes Abs Lymphs (Manual) Absolute Monocytes Abs Monocytes (Manual) Absolute Eosinophils Absolute Eos (Manual) Absolute Basophils Abs Basophils (Manual) Nucleated RBCs Toxic Granulation Toxic Vacuolation Dohle Bodies Clumped Platelets Large Platelets Platelet Comment Polychromasia Hypochromasia Poikilocytosis Basophilic Stippling Anisocytosis Tear Drop Cells Ovalocytes [place] Cells Acanthocytes (Spur) Rouleaux Schistocytes PT INR Carbonic Acid HCO3/H2CO3 Ratio ABG pH ABG pCO2 ABG pO2 ABG HCO3 ABG Total CO2 ABG O2 Saturation ABG Base Excess FiO2 Sodium Potassium Chloride Carbon Dioxide Anion Gap BUN Creatinine Est GFR ( Amer) Est GFR (Non-Af Amer) Glucose POC Glucose 80 98 Lactic Acid Calcium Magnesium Total Bilirubin Direct Bilirubin Indirect Bilirubin Neonat Total Bilirubin AST ALT Alkaline Phosphatase Creatine Kinase CK-MB (CK-2) Troponin I Total Protein Albumin Amylase Lipase Urine Color Urine Appearance Urine pH Ur Specific [place] Urine Protein Urine Glucose (UA) Urine Ketones Urine Blood Urine Nitrite Urine Bilirubin Urine Urobilinogen Ur Leukocyte Esterase Urine WBC (Auto) Urine RBC (Auto) Urine Bacteria (Auto) Urine Mucus (Auto) Urine Ascorbic Acid Stool Occult Blood Dose Start Time Dose Stop Time Time Trough Drawn Time Peak Drawn Gentamicin Peak Gentamicin Trough Vancomycin Trough C. difficile Tox (PCR) Influenza A (Rapid) Influenza B (Rapid) Slides for Path Review Blood Type Blood Type Confirm Antibody Screen Crossmatch 06/15/16 06/15/16 06/16/16 20:40 22:05 02:30 WBC 12.6 H 11.8 H RBC 3.37 L 3.29 L Hgb 9.5 L 9.3 L Hct 29.1 L 28.5 L MCV 86 87 MCH 28.2 28.3 MCHC 32.7 32.7 RDW 17.2 H 17.2 H Plt Count 340 330 Total Counted Seg Neutrophils % Seg Neuts % (Manual) Band Neutrophils % Lymphocytes % Lymphocytes % (Manual) Atypical Lymphs % Monocytes % Monocytes % (Manual) Eosinophils % Eosinophils % (Manual) Basophils % Basophils % (Manual) Metamyelocytes % Absolute Neutrophils Abs Neuts (Manual) Absolute Lymphocytes Abs Lymphs (Manual) Absolute Monocytes Abs Monocytes (Manual) Absolute Eosinophils Absolute Eos (Manual) Absolute Basophils Abs Basophils (Manual) Nucleated RBCs Toxic Granulation Toxic Vacuolation Dohle Bodies Clumped Platelets Large Platelets Platelet Comment Polychromasia Hypochromasia Poikilocytosis Basophilic Stippling Anisocytosis Tear Drop Cells Ovalocytes Alexus Cells Acanthocytes (Spur) Rouleaux Schistocytes PT INR Carbonic Acid HCO3/H2CO3 Ratio ABG pH ABG pCO2 ABG pO2 ABG HCO3 ABG Total CO2 ABG O2 Saturation ABG Base Excess FiO2 Sodium Potassium Chloride Carbon Dioxide Anion Gap BUN Creatinine Est GFR ( Amer) Est GFR (Non-Af Amer) Glucose POC Glucose 119 H Lactic Acid Calcium Magnesium Total Bilirubin Direct Bilirubin Indirect Bilirubin Neonat Total Bilirubin AST ALT Alkaline Phosphatase Creatine Kinase CK-MB (CK-2) Troponin I Total Protein Albumin Amylase Lipase Urine Color Urine Appearance Urine pH Ur Specific [place] Urine Protein Urine Glucose (UA) Urine Ketones Urine Blood Urine Nitrite Urine Bilirubin Urine Urobilinogen Ur Leukocyte Esterase Urine WBC (Auto) Urine RBC (Auto) Urine Bacteria (Auto) Urine Mucus (Auto) Urine Ascorbic Acid Stool Occult Blood Dose Start Time Dose Stop Time Time Trough Drawn Time Peak Drawn Gentamicin Peak Gentamicin Trough Vancomycin Trough C. difficile Tox (PCR) Influenza A (Rapid) Influenza B (Rapid) Slides for Path Review Blood Type Blood Type Confirm Antibody Screen Crossmatch 06/16/16 06/16/16 06/16/16 05:44 06:45 12:35 WBC RBC Hgb Hct MCV MCH MCHC RDW Plt Count Total Counted Seg Neutrophils % Seg Neuts % (Manual) Band Neutrophils % Lymphocytes % Lymphocytes % (Manual) Atypical Lymphs % Monocytes % Monocytes % (Manual) Eosinophils % Eosinophils % (Manual) Basophils % Basophils % (Manual) Metamyelocytes % Absolute Neutrophils Abs Neuts (Manual) Absolute Lymphocytes Abs Lymphs (Manual) Absolute Monocytes Abs Monocytes (Manual) Absolute Eosinophils Absolute Eos (Manual) Absolute Basophils Abs Basophils (Manual) Nucleated RBCs Toxic Granulation Toxic Vacuolation Dohle Bodies Clumped Platelets Large Platelets Platelet Comment Polychromasia Hypochromasia Poikilocytosis Basophilic Stippling Anisocytosis Tear Drop Cells Ovalocytes [place] Cells Acanthocytes (Spur) Rouleaux Schistocytes PT INR Carbonic Acid HCO3/H2CO3 Ratio ABG pH ABG pCO2 ABG pO2 ABG HCO3 ABG Total CO2 ABG O2 Saturation ABG Base Excess FiO2 Sodium 141.6 Potassium 3.5 L Chloride 100 Carbon Dioxide 32 H Anion Gap 10 BUN 17 Creatinine 1.28 H Est GFR ( Amer) 52 L Est GFR (Non-Af Amer) 43 L Glucose 80 POC Glucose 83 135 H Lactic Acid Calcium 9.2 Magnesium Total Bilirubin Direct Bilirubin Indirect Bilirubin Neonat Total Bilirubin AST ALT Alkaline Phosphatase Creatine Kinase CK-MB (CK-2) Troponin I Total Protein Albumin Amylase Lipase Urine Color Urine Appearance Urine pH Ur Specific [place] Urine Protein Urine Glucose (UA) Urine Ketones Urine Blood Urine Nitrite Urine Bilirubin Urine Urobilinogen Ur Leukocyte Esterase Urine WBC (Auto) Urine RBC (Auto) Urine Bacteria (Auto) Urine Mucus (Auto) Urine Ascorbic Acid Stool Occult Blood Dose Start Time Dose Stop Time Time Trough Drawn Time Peak Drawn Gentamicin Peak Gentamicin Trough Vancomycin Trough C. difficile Tox (PCR) Influenza A (Rapid) Influenza B (Rapid) Slides for Path Review Blood Type Blood Type Confirm Antibody Screen Crossmatch 06/16/16 06/16/16 06/16/16 15:57 20:15 22:11 WBC 13.3 H RBC 3.26 L Hgb 9.2 L Hct 28.2 L MCV 87 MCH 28.2 MCHC 32.6 RDW 17.6 H Plt Count 335 Total Counted Seg Neutrophils % Seg Neuts % (Manual) Band Neutrophils % Lymphocytes % Lymphocytes % (Manual) Atypical Lymphs % Monocytes % Monocytes % (Manual) Eosinophils % Eosinophils % (Manual) Basophils % Basophils % (Manual) Metamyelocytes % Absolute Neutrophils Abs Neuts (Manual) Absolute Lymphocytes Abs Lymphs (Manual) Absolute Monocytes Abs Monocytes (Manual) Absolute Eosinophils Absolute Eos (Manual) Absolute Basophils Abs Basophils (Manual) Nucleated RBCs Toxic Granulation Toxic Vacuolation Dohle Bodies Clumped Platelets Large Platelets Platelet Comment Polychromasia Hypochromasia Poikilocytosis Basophilic Stippling Anisocytosis Tear Drop Cells Ovalocytes Alexus Cells Acanthocytes (Spur) Rouleaux Schistocytes PT INR Carbonic Acid HCO3/H2CO3 Ratio ABG pH ABG pCO2 ABG pO2 ABG HCO3 ABG Total CO2 ABG O2 Saturation ABG Base Excess FiO2 Sodium Potassium Chloride Carbon Dioxide Anion Gap BUN Creatinine Est GFR ( Amer) Est GFR (Non-Af Amer) Glucose POC Glucose 160 H 135 H Lactic Acid Calcium Magnesium Total Bilirubin Direct Bilirubin Indirect Bilirubin Neonat Total Bilirubin AST ALT Alkaline Phosphatase Creatine Kinase CK-MB (CK-2) Troponin I Total Protein Albumin Amylase Lipase Urine Color Urine Appearance Urine pH Ur Specific [place] Urine Protein Urine Glucose (UA) Urine Ketones Urine Blood Urine Nitrite Urine Bilirubin Urine Urobilinogen Ur Leukocyte Esterase Urine WBC (Auto) Urine RBC (Auto) Urine Bacteria (Auto) Urine Mucus (Auto) Urine Ascorbic Acid Stool Occult Blood Dose Start Time Dose Stop Time Time Trough Drawn Time Peak Drawn Gentamicin Peak Gentamicin Trough Vancomycin Trough C. difficile Tox (PCR) Influenza A (Rapid) Influenza B (Rapid) Slides for Path Review Blood Type Blood Type Confirm Antibody Screen Crossmatch 06/17/16 06/17/16 06/17/16 05:39 05:39 06:03 WBC 12.7 H RBC 3.15 L Hgb 9.1 L Hct 27.1 L MCV 86 MCH 28.8 MCHC 33.5 RDW 17.3 H Plt Count 348 Total Counted Seg Neutrophils % Seg Neuts % (Manual) Band Neutrophils % Lymphocytes % Lymphocytes % (Manual) Atypical Lymphs % Monocytes % Monocytes % (Manual) Eosinophils % Eosinophils % (Manual) Basophils % Basophils % (Manual) Metamyelocytes % Absolute Neutrophils Abs Neuts (Manual) Absolute Lymphocytes Abs Lymphs (Manual) Absolute Monocytes Abs Monocytes (Manual) Absolute Eosinophils Absolute Eos (Manual) Absolute Basophils Abs Basophils (Manual) Nucleated RBCs Toxic Granulation Toxic Vacuolation Dohle Bodies Clumped Platelets Large Platelets Platelet Comment Polychromasia Hypochromasia Poikilocytosis Basophilic Stippling Anisocytosis Tear Drop Cells Ovalocytes [place] Cells Acanthocytes (Spur) Rouleaux Schistocytes PT INR Carbonic Acid HCO3/H2CO3 Ratio ABG pH ABG pCO2 ABG pO2 ABG HCO3 ABG Total CO2 ABG O2 Saturation ABG Base Excess FiO2 Sodium 142.7 Potassium 3.6 Chloride 100 Carbon Dioxide 33 H Anion Gap 10 BUN 20 Creatinine 1.25 Est GFR ( Amer) 53 L Est GFR (Non-Af Amer) 44 L Glucose 80 POC Glucose 84 Lactic Acid Calcium 9.1 Magnesium Total Bilirubin Direct Bilirubin Indirect Bilirubin Neonat Total Bilirubin AST ALT Alkaline Phosphatase Creatine Kinase CK-MB (CK-2) Troponin I Total Protein Albumin Amylase Lipase Urine Color Urine Appearance Urine pH Ur Specific [place] Urine Protein Urine Glucose (UA) Urine Ketones Urine Blood Urine Nitrite Urine Bilirubin Urine Urobilinogen Ur Leukocyte Esterase Urine WBC (Auto) Urine RBC (Auto) Urine Bacteria (Auto) Urine Mucus (Auto) Urine Ascorbic Acid Stool Occult Blood Dose Start Time Dose Stop Time Time Trough Drawn Time Peak Drawn Gentamicin Peak Gentamicin Trough Vancomycin Trough C. difficile Tox (PCR) Influenza A (Rapid) Influenza B (Rapid) Slides for Path Review Blood Type Blood Type Confirm Antibody Screen Crossmatch 06/17/16 06/17/16 06/17/16 11:56 16:12 21:27 WBC RBC Hgb Hct MCV MCH MCHC RDW Plt Count Total Counted Seg Neutrophils % Seg Neuts % (Manual) Band Neutrophils % Lymphocytes % Lymphocytes % (Manual) Atypical Lymphs % Monocytes % Monocytes % (Manual) Eosinophils % Eosinophils % (Manual) Basophils % Basophils % (Manual) Metamyelocytes % Absolute Neutrophils Abs Neuts (Manual) Absolute Lymphocytes Abs Lymphs (Manual) Absolute Monocytes Abs Monocytes (Manual) Absolute Eosinophils Absolute Eos (Manual) Absolute Basophils Abs Basophils (Manual) Nucleated RBCs Toxic Granulation Toxic Vacuolation Dohle Bodies Clumped Platelets Large Platelets Platelet Comment Polychromasia Hypochromasia Poikilocytosis Basophilic Stippling Anisocytosis Tear Drop Cells Ovalocytes Alexus Cells Acanthocytes (Spur) Rouleaux Schistocytes PT INR Carbonic Acid HCO3/H2CO3 Ratio ABG pH ABG pCO2 ABG pO2 ABG HCO3 ABG Total CO2 ABG O2 Saturation ABG Base Excess FiO2 Sodium Potassium Chloride Carbon Dioxide Anion Gap BUN Creatinine Est GFR ( Amer) Est GFR (Non-Af Amer) Glucose POC Glucose 136 H 160 H 142 H Lactic Acid Calcium Magnesium Total Bilirubin Direct Bilirubin Indirect Bilirubin Neonat Total Bilirubin AST ALT Alkaline Phosphatase Creatine Kinase CK-MB (CK-2) Troponin I Total Protein Albumin Amylase Lipase Urine Color Urine Appearance Urine pH Ur Specific [place] Urine Protein Urine Glucose (UA) Urine Ketones Urine Blood Urine Nitrite Urine Bilirubin Urine Urobilinogen Ur Leukocyte Esterase Urine WBC (Auto) Urine RBC (Auto) Urine Bacteria (Auto) Urine Mucus (Auto) Urine Ascorbic Acid Stool Occult Blood Dose Start Time Dose Stop Time Time Trough Drawn Time Peak Drawn Gentamicin Peak Gentamicin Trough Vancomycin Trough C. difficile Tox (PCR) Influenza A (Rapid) Influenza B (Rapid) Slides for Path Review Blood Type Blood Type Confirm Antibody Screen Crossmatch 06/18/16 06/18/16 05:40 05:40 WBC 11.7 H RBC 3.14 L Hgb 8.9 L Hct 27.3 L MCV 87 MCH 28.2 MCHC 32.5 RDW 17.3 H Plt Count 367 Total Counted Seg Neutrophils % Seg Neuts % (Manual) Band Neutrophils % Lymphocytes % Lymphocytes % (Manual) Atypical Lymphs % Monocytes % Monocytes % (Manual) Eosinophils % Eosinophils % (Manual) Basophils % Basophils % (Manual) Metamyelocytes % Absolute Neutrophils Abs Neuts (Manual) Absolute Lymphocytes Abs Lymphs (Manual) Absolute Monocytes Abs Monocytes (Manual) Absolute Eosinophils Absolute Eos (Manual) Absolute Basophils Abs Basophils (Manual) Nucleated RBCs Toxic Granulation Toxic Vacuolation Dohle Bodies Clumped Platelets Large Platelets Platelet Comment Polychromasia Hypochromasia Poikilocytosis Basophilic Stippling Anisocytosis Tear Drop Cells Ovalocytes [place] Cells Acanthocytes (Spur) Rouleaux Schistocytes PT INR Carbonic Acid HCO3/H2CO3 Ratio ABG pH ABG pCO2 ABG pO2 ABG HCO3 ABG Total CO2 ABG O2 Saturation ABG Base Excess FiO2 Sodium 142.3 Potassium 3.7 Chloride 100 Carbon Dioxide 33 H Anion Gap 9 BUN 22 H Creatinine 1.18 Est GFR ( Amer) 57 L Est GFR (Non-Af Amer) 47 L Glucose 74 L POC Glucose Lactic Acid Calcium 9.4 Magnesium Total Bilirubin Direct Bilirubin Indirect Bilirubin Neonat Total Bilirubin AST ALT Alkaline Phosphatase Creatine Kinase CK-MB (CK-2) Troponin I Total Protein Albumin Amylase Lipase Urine Color Urine Appearance Urine pH Ur Specific [place] Urine Protein Urine Glucose (UA) Urine Ketones Urine Blood Urine Nitrite Urine Bilirubin Urine Urobilinogen Ur Leukocyte Esterase Urine WBC (Auto) Urine RBC (Auto) Urine Bacteria (Auto) Urine Mucus (Auto) Urine Ascorbic Acid Stool Occult Blood Dose Start Time Dose Stop Time Time Trough Drawn Time Peak Drawn Gentamicin Peak Gentamicin Trough Vancomycin Trough C. difficile Tox (PCR) Influenza A (Rapid) Influenza B (Rapid) Slides for Path Review Blood Type Blood Type Confirm Antibody Screen Crossmatch Impressions: Abdomen Ultrasound 05/30/16 00:00 IMPRESSION: No gallstones are identified. There is thickening of the gallbladder ko and there is pericholecystic fluid. This was present on the previous CT scan. The possibility of an acalculous cholecystitis should be considered. Other findings as noted above Hepatobiliary Scan Nuclear Medicine 05/31/16 00:00 IMPRESSION: NO CYSTIC OR COMMON DUCT OBSTRUCTION. KUB X-Ray 06/02/16 08:01 IMPRESSION: Allowing for paucity of bowel gas, negative study. Limited as above. Chest X-Ray 06/05/16 06:00 IMPRESSION: Small bilateral pleural effusions with pulmonary vascular congestion. Question mild perihilar edema. Findings are similar compared to . Persistent dense consolidation left lower lobe atelectasis versus pneumonia. Abdomen/Pelvis CT 06/15/16 09:55 IMPRESSION: Right iliacus muscle hematoma Plan Discharge Plan: Home with home health and home PT Follow-up with PMD in a week and with Dr. Daley in a month Time Spent: Greater than 30 Minutes
[2016-06-18] MEDS: AZATHIOPRINE 50 MG TABLET PO SCH (09:49)
[2016-06-18] MEDS: METOPROLOL TARTRATE 25 MG TABLET PO SCH ×2 (09:50→21:33)
[2016-06-18] MEDS: PREDNISONE 20 MG TABLET PO SCH (09:50)
[2016-06-18] MEDS: LISINOPRIL 5 MG TABLET PO SCH (09:51)
[2016-06-18] MEDS: GABAPENTIN 300 MG CAPSULE PO SCH ×2 (09:52→21:32)
[2016-06-18] MEDS: OXYCODONE HCL SR 10 MG TABLET PO SCH ×2 (09:53→21:32)
[2016-06-18] MEDS: POTASSIUM CHLORIDE 10 MEQ TABLET.SA PO SCH (12:52)
--- NOTE | 2016-06-18 14:57 | PDOC PROGRESS REPORT ---
Subjective Progress Note for:: 06/11/16 Subjective:: has a headache but overall better Physical Exam Vital Signs: Temp Pulse Resp BP Pulse Ox 98.4 F 74 18 124/67 97 06/12/16 12:12 06/12/16 12:12 06/12/16 12:12 06/12/16 12:12 06/12/16 12:12 Intake & Output 06/11/16 06/12/16 06/13/16 06:59 06:59 06:59 Intake Total 1245 1304 120 Output Total 300 Balance 945 1304 120 Weight 60.6 kg 60 kg General appearance: PRESENT: no acute distress, disheveled, obese Head exam: PRESENT: atraumatic, normocephalic Eye exam: PRESENT: conjunctiva pale, EOMI Mouth exam: PRESENT: neck supple Neck exam: ABSENT: carotid bruit, JVD, lymphadenopathy, thyromegaly Results Laboratory Results: 06/06/16 06:45 06/12/16 04:40 06/12/16 04:40 Sodium 143.0 Potassium 3.5 L Chloride 99 Carbon Dioxide 33 H Anion Gap 11 BUN 10 Creatinine 1.34 H Est GFR ( Amer) 49 L Est GFR (Non-Af Amer) 41 L Glucose 75 Calcium 9.2 05/30/16 05/30/16 05/31/16 04:00 04:00 05:45 Creatine Kinase 110 CK-MB (CK-2) 3.10 Troponin I 0.270 0.136 Impressions: Abdomen Ultrasound 05/30/16 00:00 IMPRESSION: No gallstones are identified. There is thickening of the gallbladder ko and there is pericholecystic fluid. This was present on the previous CT scan. The possibility of an acalculous cholecystitis should be considered. Other findings as noted above Abdomen/Pelvis CT 05/30/16 01:00 IMPRESSION: There is relative increased density within the gallbladder lumen which could represent biliary sludge. Pericholecystic fluid is identified in the possibility of cholecystitis should be considered. Abdominal ultrasound may be of value for confirmation if clinically warranted. Bibasilar densities representing small bilateral pleural effusions with associated airspace consolidation which could represent atelectatic changes or basilar infiltrates. Other findings as noted above Hepatobiliary Scan Nuclear Medicine 05/31/16 00:00 IMPRESSION: NO CYSTIC OR COMMON DUCT OBSTRUCTION. KUB X-Ray 06/02/16 08:01 IMPRESSION: Allowing for paucity of bowel gas, negative study. Limited as above. Chest X-Ray 06/05/16 06:00 IMPRESSION: Small bilateral pleural effusions with pulmonary vascular congestion. Question mild perihilar edema. Findings are similar compared to . Persistent dense consolidation left lower lobe atelectasis versus pneumonia. Assessment & Plan - Diagnosis (1) Abnormal CT scan, gallbladder Is this a current diagnosis for this admission?: No (2) Acute respiratory failure with hypoxia Is this a current diagnosis for this admission?: No (3) LLL pneumonia Qualifiers: Pneumonia type: due to unspecified organism Qualified Code(s): J18.1 - Lobar pneumonia, unspecified organism Is this a current diagnosis for this admission?: Yes (4) Septic shock Is this a current diagnosis for this admission?: No
[2016-06-18] MEDS: INSULIN LISPRO 100 UNIT/ML 3 ML VIAL SUBCUT PRN (18:30)
[2016-06-18] MEDS: ONDANSETRON HCL INJ/PF 4 MG/2 ML SDV IV PRN (18:31)
[2016-06-18] MEDS: ATORVASTATIN CALCIUM 20 MG TABLET PO SCH (21:32)
[2016-06-18] MEDS: ASPIRIN 81 MG TABLET, ENT COATED PO SCH (21:32)
[2016-06-19 06:17] LABS: HEMATOCRIT 29.1 % (36.0-47.0); HEMOGLOBIN 9.4 g/dL (12.0-15.5); HGB HCT DIFFERENCE -0.9; MEAN CORPUSCULAR HEMOGLOBIN 28.1 pg (27.0-33.4); MEAN CORPUSCULAR HGB CONC 32.4 g/dL (32.0-36.0); MEAN CORPUSCULAR VOLUME 87 fl (80-97); RED BLOOD COUNT 3.34 10^6/uL (3.72-5.28); RED CELL DISTRIBUTION WIDTH 17.3 % (11.5-14.0); WHITE BLOOD COUNT 12.4 10^3/uL (4.0-10.5)
[2016-06-19 06:51] LABS: ANION GAP 10 (5-19); BLOOD UREA NITROGEN 22 mg/dL (7-20); CALCIUM 9.4 mg/dL (8.4-10.2); CARBON DIOXIDE 34 mmol/L (22-30); CHLORIDE 101 mmol/L (98-107); CREATININE RESULT 1.13 mg/dL (0.52-1.25); GLUCOSE 72 mg/dL (75-110); POTASSIUM 3.7 mmol/L (3.6-5.0); SODIUM 144.9 mmol/L (137-145)
[2016-06-19] MEDS: AZATHIOPRINE 50 MG TABLET PO SCH (09:26)
[2016-06-19] MEDS: GABAPENTIN 300 MG CAPSULE PO SCH (09:26)
[2016-06-19] MEDS: METOPROLOL TARTRATE 25 MG TABLET PO SCH (09:26)
[2016-06-19] MEDS: ONDANSETRON HCL INJ/PF 4 MG/2 ML SDV IV PRN (09:27)
[2016-06-19] MEDS: PREDNISONE 20 MG TABLET PO SCH (09:27)
[2016-06-19] MEDS: OXYCODONE HCL SR 10 MG TABLET PO SCH (09:27)
[2016-06-19] MEDS: HYDROMORPHONE HCL INJ/PF 2 MG/ML AMPULE IV PRN ×2 (09:27→13:44)
[2016-06-19] MEDS: LISINOPRIL 5 MG TABLET PO SCH (09:28)
--- NOTE | 2016-06-19 11:40 | PDOC PROGRESS REPORT ---
Subjective Progress Note for:: 06/19/16 Subjective:: Patient is feeling somewhat depressed today; she states the pain is still quite bad Patient states that she will need a bedside commode at home She still does not want to go to short-term rehabilitation She has no chest pain no shortness of breath and the abdominal pain is about the same radiating to the right lower extremity A repeat CT abdomen and pelvis was unchanged but showed bilateral lower lobe infiltrates Physical Exam Vital Signs: Temp Pulse Resp BP Pulse Ox 99 F 75 18 98/61 L 90 L 06/19/16 08:00 06/19/16 08:00 06/19/16 08:00 06/19/16 08:00 06/19/16 08:00 Intake & Output 06/18/16 06/19/16 06/20/16 00:59 00:59 00:59 Intake Total 1145 761 711 Balance 1145 761 711 Weight 58.4 kg 57.9 kg General appearance: PRESENT: mild distress, thin Head exam: PRESENT: atraumatic, normocephalic Eye exam: PRESENT: conjunctiva pink, EOMI, PERRLA. ABSENT: scleral icterus Neck exam: ABSENT: carotid bruit, JVD, lymphadenopathy, thyromegaly Respiratory exam: PRESENT: clear to auscultation jenaro. ABSENT: rales, rhonchi, wheezes Cardiovascular exam: PRESENT: bradycardia, RRR. ABSENT: diastolic murmur, rubs , systolic murmur GI/Abdominal exam: PRESENT: normal bowel sounds, soft. ABSENT: distended, guarding, mass, organolmegaly, rebound, tenderness Skin exam: PRESENT: dry, intact, rash - Perineal area and buttocks Red pustules surrounded with erythema Perirectal area and vulva erythema well- demarcated slightly scaly on the borders Mouth ulcerations the corner of the mouth, warm. ABSENT: cyanosis Results Laboratory Results: 06/19/16 05:30 06/19/16 05:30 06/19/16 06/19/16 05:30 05:30 WBC 12.4 H RBC 3.34 L Hgb 9.4 L Hct 29.1 L MCV 87 MCH 28.1 MCHC 32.4 RDW 17.3 H Plt Count 427 Sodium 144.9 Potassium 3.7 Chloride 101 Carbon Dioxide 34 H Anion Gap 10 BUN 22 H Creatinine 1.13 Est GFR ( Amer) > 60 Est GFR (Non-Af Amer) 49 L Glucose 72 L Calcium 9.4 05/30/16 05/30/16 05/31/16 04:00 04:00 05:45 Creatine Kinase 110 CK-MB (CK-2) 3.10 Troponin I 0.270 0.136 Impressions: Abdomen Ultrasound 05/30/16 00:00 IMPRESSION: No gallstones are identified. There is thickening of the gallbladder ko and there is pericholecystic fluid. This was present on the previous CT scan. The possibility of an acalculous cholecystitis should be considered. Other findings as noted above Hepatobiliary Scan Nuclear Medicine 05/31/16 00:00 IMPRESSION: NO CYSTIC OR COMMON DUCT OBSTRUCTION. KUB X-Ray 06/02/16 08:01 IMPRESSION: Allowing for paucity of bowel gas, negative study. Limited as above. Chest X-Ray 06/05/16 06:00 IMPRESSION: Small bilateral pleural effusions with pulmonary vascular congestion. Question mild perihilar edema. Findings are similar compared to . Persistent dense consolidation left lower lobe atelectasis versus pneumonia. Abdomen/Pelvis CT 06/18/16 09:07 IMPRESSION: Stable right pelvic retroperitoneal hematoma Large amount of stool throughout the colon Bibasilar airspace disease increase compared to previous studies Assessment & Plan - Diagnosis (1) Acute acalculous cholecystitis Is this a current diagnosis for this admission?: Yes (2) Acute respiratory failure Qualifiers: Respiratory failure complication: hypoxia Qualified Code(s): J96.01 - Acute respiratory failure with hypoxia Is this a current diagnosis for this admission?: Yes (3) Hypokalemia Is this a current diagnosis for this admission?: Yes (4) LLL pneumonia Qualifiers: Pneumonia type: due to unspecified organism Qualified Code(s): J18.1 - Lobar pneumonia, unspecified organism Is this a current diagnosis for this admission?: Yes (5) Non-ST elevation myocardial infarction (NSTEMI), type 2 Is this a current diagnosis for this admission?: Yes (6) Septic shock Is this a current diagnosis for this admission?: No (7) Hypoalbuminemia Is this a current diagnosis for this admission?: Yes (8) Acute renal failure Qualifiers: Acute renal failure type: unspecified Qualified Code(s): N17.9 - Acute kidney failure, unspecified Is this a current diagnosis for this admission?: Yes (9) Phantom pain Is this a current diagnosis for this admission?: Yes (10) Chronic anticoagulation Is this a current diagnosis for this admission?: Yes (11) Pain, abdominal, RLQ Is this a current diagnosis for this admission?: Yes (12) Retroperitoneal bleed Is this a current diagnosis for this admission?: Yes (13) Perleche Is this a current diagnosis for this admission?: Yes (14) Bettye infection of genital region Is this a current diagnosis for this admission?: YesPlan: We will treat the patient wishes fluconazole and nystatin powder (15) Pneumonia Is this a current diagnosis for this admission?: YesPlan: Persistent We will had Levaquin to prior medications - Time Time Spent with patient: Patient to be discharged with plans delineated yesterday A bedside commode also was ordered. Time Spent with patient: 25-34 minutes
[2016-06-19] MEDS: POTASSIUM CHLORIDE 10 MEQ TABLET.SA PO SCH (11:54)
[2016-06-19] MEDS ORDERED: LEVOFLOXACIN 750 MG TABLET PO SCH (12:00)
[2016-06-19 13:17] VITALS: BP 101/69
[2016-06-19] MEDS: OXYCODONE HCL IR 5 MG TABLET PO PRN (13:43)
== END 2016-06-19 16:16 | disposition home health service (06) | DRG 870 ==
LOC: ER 17:01 → UNDOADMIN 19:04 → EH 19:04 → ICU 20:21 → 3S 06-04 19:25 → 5 06-17 19:01
PROVIDERS: ADMIT Family Medicine; ATTEND Family Medicine
PROC: 02HV33Z Insertion of Infusion Device into Superior Vena Cava, Percutaneous Approach (ICD-10-PCS; principal; 2016-05-29)
PROC: 5A1955Z Respiratory Ventilation, Greater than 96 Consecutive Hours (ICD-10-PCS; 2016-05-29)
PROC: B548ZZA Ultrasonography of Superior Vena Cava, Guidance (ICD-10-PCS; 2016-05-29)
PROC: 0BH18EZ Insertion of Endotracheal Airway into Trachea, Via Natural or Artificial Opening Endoscopic (ICD-10-PCS; 2016-05-29)
PROC: 30233N1 Transfusion of Nonautologous Red Blood Cells into Peripheral Vein, Percutaneous Approach (ICD-10-PCS; 2016-05-31)
DX: A41.9 Sepsis, unspecified organism (principal); R65.21 Severe sepsis with septic shock; J96.01 Acute respiratory failure with hypoxia; J18.1 Lobar pneumonia, unspecified organism; I21.4 Non-ST elevation (NSTEMI) myocardial infarction; G93.41 Metabolic encephalopathy; K66.1 Hemoperitoneum; K50.90 Crohn's disease, unspecified, without complications; K81.0 Acute cholecystitis; N17.9 Acute kidney failure, unspecified; D68.69 Other thrombophilia; B37.49 Other urogenital candidiasis; E87.6 Hypokalemia; I10 Essential (primary) hypertension; E10.9 Type 1 diabetes mellitus without complications; F41.9 Anxiety disorder, unspecified; F32.9 Major depressive disorder, single episode, unspecified; K21.9 Gastro-esophageal reflux disease without esophagitis; L30.9 Dermatitis, unspecified; Z89.512 Acquired absence of left leg below knee; Z86.73 Personal history of transient ischemic attack (TIA), and cerebral infarction without residual deficits; R13.10 Dysphagia, unspecified; R19.7 Diarrhea, unspecified; T45.515A Adverse effect of anticoagulants, initial encounter; E83.42 Hypomagnesemia; D50.0 Iron deficiency anemia secondary to blood loss (chronic); Z79.02 Long term (current) use of antithrombotics/antiplatelets; G54.6 Phantom limb syndrome with pain; Z78.1 Physical restraint status; E88.09 Other disorders of plasma-protein metabolism, not elsewhere classified; R10.31 Right lower quadrant pain; E87.8 Other disorders of electrolyte and fluid balance, not elsewhere classified; F17.210 Nicotine dependence, cigarettes, uncomplicated; J45.909 Unspecified asthma, uncomplicated; G43.909 Migraine, unspecified, not intractable, without status migrainosus; Z79.899 Other long term (current) drug therapy; Z79.4 Long term (current) use of insulin; Z88.2 Allergy status to sulfonamides; Z92.25 Personal history of immunosuppression therapy; Z86.718 Personal history of other venous thrombosis and embolism
CPT/HCPCS: 31500; 36415; 36430; 71010; 74000; 74176; 76705; 78226; 78452; 80048; 80053; 80076; 80170; 80202; 81001; 82040; 82150; 82272; 82550; 82553; 82803; 82962; 83605; 83690; 83735; 84484; 85025; 85027; 85610; 86850; 86900; 86901; 86920; 87040; 87070; 87077; 87086; 87186; 87205; 87493; 87804; 93005; 93010; 93017; 93306; 93971; 93976; 94002; 94003; 94640; 94799; 96365; 99291; A9500; A9537; C1751; G8978-GP; G8979-GP; J0153; J0280; J0330; J0610; J0780; J1170; J1200; J1439; J1580; J1642; J1652; J1720; J1815; J1940; J1956; J2270; J2370; J2405; J2543; J2704; J2785; J2997; J3370; J3475; J3480; J3490; J7030; J7050; J7060; J7500; J7512; J7620; P9016; P9047; Q9969; S0028

== ENCOUNTER 2016-10-11 22:15 | Inpatient (IN) | payer MEDICARE, MEDICAID ==
[2016-10-11] MEDS ORDERED: NORMAL SALINE 1000 ML 1,000 ML IV ONE ×2 (23:11→23:32)
[2016-10-11] MEDS ORDERED: IPRATROPIUM/ALBUTEROL 0.5-2.5 MG/3 ML AMPUL NEB ONE (23:12)
--- NOTE | 2016-10-11 23:12 | ER Document Report ---
ED Fever - General Chief Complaint: Fever Stated Complaint: FEVER Time Seen by Provider: 10/11/16 22:58 Notes: Patient is a 61-year-old female who comes emergency department for chief complaint of body aches, feeling weak, and a fever that she measured at 101.5F this afternoon. She took Tylenol. She states she has not felt well for almost 3 days. She reports some intermittent shortness of breath, however she has asthma , smokes, has COPD. She also states she is urinating all the time, she has pain in her abdomen but she states it is her typical chronic pain. 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 In addition to this she also had pneumonia with intubation in May of this year. She is on chronic pain management. TRAVEL OUTSIDE OF THE [place] IN LAST 30 DAYS: No - Related Data Allergies/Adverse Reactions: Sulfa (Sulfonamide Antibiotics) Allergy (Verified 05/04/16 04:41) Past Medical History - General Information source: Patient - Social History Smoking Status: Current Every Day Smoker Frequency of alcohol use: Occasional Drug Abuse: None Lives with: Family Family History: None Patient has suicidal ideation: No Patient has homicidal ideation: No - Past Medical History Cardiac Medical History: Reports: Hx Hypertension Denies: Hx Congestive Heart Failure, Hx Hypercholesterolemia, Hx Pulmonary Embolism Pulmonary Medical History: Reports: Hx Asthma Denies: Hx COPD Neurological Medical History: Reports: Hx Migraine. Denies: Hx Seizures Endocrine Medical History: Reports: Hx Diabetes Mellitus Type 2. Denies: Hx Hyperthyroidism, Hx Hypothyroidism Renal/ Medical History: Denies: Hx Peritoneal Dialysis GI Medical History: Reports: Hx Crohn's Disease. Denies: Hx Cirrhosis, Hx Hepatitis Psychiatric Medical History: Reports: Hx Depression Infectious Medical History: Denies: Hx Hepatitis Past Surgical History: Reports: Hx Section, Hx Orthopedic Surgery - R knee; R shoulder; L BKA, Hx Tonsillectomy. Denies: Hx Hysterectomy - Immunizations Hx Diphtheria, Pertussis, Tetanus Vaccination: Yes Review of Systems - Review of Systems Constitutional: No symptoms reported EENT: No symptoms reported Cardiovascular: No symptoms reported Respiratory: No symptoms reported Gastrointestinal: No symptoms reported Genitourinary: No symptoms reported Female Genitourinary: No symptoms reported Musculoskeletal: No symptoms reported Skin: No symptoms reported Hematologic/Lymphatic: No symptoms reported Neurological/Psychological: No symptoms reported Physical Exam - Vital signs Vitals: Temp Pulse Resp BP Pulse Ox 98.4 F 94 16 105/71 94 10/11/16 22:30 10/11/16 22:30 10/11/16 22:30 10/11/16 22:30 10/11/16 22:30 Interpretation: Normal - General General appearance: Alert, Other - patient mildly ill appearing - HEENT Head: Normocephalic, Atraumatic Eyes: Normal Conjunctiva: Normal Extraocular movements intact: Yes Eyelashes: Normal Pupils: PERRL Ears: Normal External canal: Normal Tympanic membrane: Normal Sinus: Normal Nasal: Normal Mouth/Lips: Normal Mucous membranes: Normal Pharynx: Normal Neck: Normal - Respiratory Respiratory status: No respiratory distress Chest status: Nontender Breath sounds: Normal Chest palpation: Normal - Cardiovascular Rhythm: Regular. No: Tachycardia Heart sounds: Normal auscultation, S1 appreciated, S2 appreciated Murmur: No - Abdominal Inspection: Normal Distension: No distension Bowel sounds: Normal Tenderness: Tender - Mild generalized abdominal tenderness, nonspecific, no guarding or rigidity. No: Guarding - Back Back: Normal, Nontender. No: Tender, CVA tenderness - Extremities General upper extremity: Normal inspection, Nontender, Normal color, Normal ROM , Normal temperature General lower extremity: Other - Left BKA with prosthetic in place, unremarkable lower extremity exam otherwise - Neurological Neuro grossly intact: Yes Cognition: Normal Orientation: AAOx4 Jose Alberto Coma Scale Eye Opening: Spontaneous Jose Alberto Coma Scale Verbal: Oriented Jose Alberto Coma Scale Motor: Obeys Commands Jose Alberto Coma Scale Total: 15 Speech: Normal Cranial nerves: Normal Cerebellar coordination: Normal Motor strength normal: LUE, RUE, LLE, RLE Additional motor exam normals: Equal expediter service order Sensory: Normal - Psychological Associated symptoms: Normal affect, Normal mood - Skin Skin Temperature: Warm Skin Moisture: Dry Skin Color: Normal Course - Re-evaluation Re-evalutation: Patient became mildly hypoxic on room air, she did not become tachypneic, she was given a breathing treatment and had resolution of initial wheezing, good air movement with slightly decreased breath sounds from COPD bilaterally. Oxygen saturation down to 88% on room air, placed on 3 L nasal cannula. After this oxygenation normalized. Patient's blood pressure dropped, given IV fluids, this improved, she is asking for something for pain, she was given some fentanyl. Blood pressure dropped again, giving additional IV fluids, patient asking for more pain medication but this will be held because of the blood pressure. Patient states understanding of this. Patient given Levaquin. CBC shows mild leukocytosis, chemistry generally unremarkable, urine shows some evidence of infection along with her frequency of urination, culture placed. Blood cultures pending. Lactic acid normal. Venous blood gas is unremarkable. Discussed admission with patient, she states she wants to leave but she will consider admission after she received antibiotics. Discussed with Dr. Velazquez. After receiving antibiotics, blood pressure is still borderline low, patient has multiple comorbidities, she is on Humira, she has a history of recent pneumonia with intubation this year. I strongly advised admission. Patient agrees with this plan. Discussed with Dr. Ignacio, internal medicine, he will admit to the [facility]. - Vital Signs Vital signs: Temp Pulse Resp BP Pulse Ox 99.0 F 94 12 95/73 L 100 10/12/16 05:37 10/11/16 22:30 10/12/16 05:15 10/12/16 05:11 10/12/16 05:15 - Laboratory Result Diagrams: 10/11/16 23:41 10/11/16 23:41 Laboratory results interpreted by me: 10/11/16 10/11/16 10/11/16 23:41 23:41 23:41 WBC 13.3 H Hgb 11.9 L RDW 15.2 H Absolute Neutrophils 8.3 H Glucose 53 L Direct Bilirubin 0.5 H Ur Leukocyte Esterase MODERATE H Discharge - Discharge Clinical Impression: Weakness, Hypoxia Fever Qualifiers: Fever type: unspecified Qualified Code(s): R50.9 - Fever, unspecified Condition: Stable Disposition: ADMITTED INPATIENT Admitting Provider: Hospitalist Unit Admitted: [facility]
[2016-10-11 23:54] LABS: ABSOLUTE BASOPHILS # (AUTO) 0.1 10^3/uL (0.0-0.2); ABSOLUTE EOSINOPHILS # (AUTO) 0.2 10^3/uL (0.0-0.6); ABSOLUTE LYMPHOCYTES (AUTO) 3.6 10^3/uL (0.5-4.7); ABSOLUTE MONOCYTES (AUTO) 1.2 10^3/uL (0.1-1.4); ABSOLUTE NEUT (AUTO) 8.3 10^3/uL (1.7-8.2); BASOPHILS % (AUTO) 0.8 % (0-2); EOSINOPHILS % (AUTO) 1.3 % (0-6); HEMATOCRIT 36.1 % (36.0-47.0); HEMOGLOBIN 11.9 g/dL (12.0-15.5); HGB HCT DIFFERENCE -0.4; MEAN CORPUSCULAR HEMOGLOBIN 30.5 pg (27.0-33.4); MEAN CORPUSCULAR HGB CONC 32.9 g/dL (32.0-36.0); MEAN CORPUSCULAR VOLUME 93 fl (80-97); RED BLOOD COUNT 3.91 10^6/uL (3.72-5.28); RED CELL DISTRIBUTION WIDTH 15.2 % (11.5-14.0); SEGMENTED NEUTROPHILS % (AUTO) 61.9 % (42-78); WHITE BLOOD COUNT 13.3 10^3/uL (4.0-10.5)
[2016-10-12] LABS: PROTHROMBIN TIME 11.8 SEC (11.4-15.4)
[2016-10-12 00:05] LABS: APPEARANCE,URINE SLIGHTLY-CLOUDY; BILIRUBIN,URINE NEGATIVE (NEGATIVE); GLUCOSE, URINE NEGATIVE (NEGATIVE); KETONES,URINE NEGATIVE (NEGATIVE); LEUKOCYTE ESTERASE,URINE MODERATE (NEGATIVE); NITRITE,URINE NEGATIVE (NEGATIVE); PROTEIN,URINE NEGATIVE (NEGATIVE); UROBILINOGEN,URINE NEGATIVE mg/dL (<2.0)
[2016-10-12 00:13] LABS: ALANINE AMINOTRANSFERASE 30 U/L (9-52); ALBUMIN 3.7 g/dL (3.5-5.0); ALKALINE PHOSPHATASE 86 U/L (38-126); ANION GAP 9 (5-19); ASPARTATE AMINO TRANSFERASE 28 U/L (14-36); BILIRUBIN,DIRECT 0.5 mg/dL (0.0-0.4); BILIRUBIN,TOTAL 0.5 mg/dL (0.2-1.3); BLOOD UREA NITROGEN 19 mg/dL (7-20); CALCIUM 9.9 mg/dL (8.4-10.2); CARBON DIOXIDE 27 mmol/L (22-30); CHLORIDE 103 mmol/L (98-107); CREATININE RESULT 0.72 mg/dL (0.52-1.25); GLUCOSE 53 mg/dL (75-110); POTASSIUM 3.7 mmol/L (3.6-5.0); SODIUM 139.4 mmol/L (137-145); TOTAL PROTEIN 6.3 g/dL (6.3-8.2)
--- NOTE | 2016-10-12 00:56 | RADIOLOGY REPORT (SQ) ---
EXAM DESCRIPTION: CHEST PA/LAT COMPLETED DATE/TIME: 10/11/2016 11:57 pm REASON FOR STUDY: fever, weakness, hx pneumonia COMPARISON: 06/05/2016. EXAM PARAMETERS: NUMBER OF VIEWS: two views TECHNIQUE: Digital Frontal and Lateral radiographic views of the chest acquired. RADIATION DOSE: NA LIMITATIONS: none FINDINGS: LUNGS AND PLEURA: Mild interstitial markings. Mild hyperinflation. MEDIASTINUM AND HILAR STRUCTURES: No masses or contour abnormalities. HEART AND VASCULAR STRUCTURES: Heart normal size. No evidence for failure. BONES: No acute findings. Kqac-bz-bcqxnuim scoliotic pattern. HARDWARE: None in the chest. OTHER: No other significant finding. IMPRESSION: Mild chronic interstitial lung disease pattern. TECHNICAL DOCUMENTATION: JOB ID: [id number] [employer]- All Rights Reserved
[2016-10-12] MEDS ORDERED: LEVOFLOXACIN 750 MG/D5W RTU 750 MG/150 ML RTUPB IV ONE (00:59)
[2016-10-12] MEDS ORDERED: FENTANYL CITRATE INJ/PF 100 MCG/2 ML AMPUL IV ONE (01:03)
[2016-10-12 01:37] LABS: VENOUS BLOOD BASE EXCESS 3.1 mmol/L; VENOUS BLOOD HCO3 29.5 mmol/L (20-32); VENOUS BLOOD PCO2 54.5 mmHg (35-63); VENOUS BLOOD PH 7.35 (7.30-7.42)
[2016-10-12] MEDS ORDERED: HYDROMORPHONE HCL INJ/PF 2 MG/ML AMPULE IV ONE (01:57)
[2016-10-12] MEDS ORDERED: NORMAL SALINE 1000 ML 1,000 ML IV ONE ×2 (03:33→05:30)
[2016-10-12 04:22] LABS: ADD ON TESTING BLD IN LAB ACKNOWLEDGE
[2016-10-12 04:36] LABS: MAGNESIUM 1.7 mg/dL (1.6-2.3)
[2016-10-12] MEDS ORDERED: DEXTROSE 40% GEL 15 GM TUBE PO PRN ×2 (05:18)
[2016-10-12] MEDS ORDERED: GLUCAGON,HUMAN RECOMB 1 MG INJ IM PRN (05:18)
[2016-10-12] MEDS ORDERED: INSULIN LISPRO 100 UNIT/ML 3 ML VIAL SUBCUT PRN (05:18)
[2016-10-12] MEDS ORDERED: DEXTROSE 50%-WATER 25 GM/50 ML DISP.SYRIN IV PRN ×2 (05:18)
[2016-10-12] MEDS ORDERED: ALBUTEROL SULFATE 0.083% NEB 2.5 MG/3 ML AMPUL NEB PRN (05:28)
[2016-10-12] MEDS ORDERED: GUAIFENESIN SYRP 200 MG/10 ML UDC PO PRN (05:28)
[2016-10-12] MEDS ORDERED: DEXTROSE 5%-NORMAL SALINE 1,000 ML IV PRN (05:30)
[2016-10-12] MEDS ORDERED: PIPERACILLIN/TAZOBACTAM 4.5 GM VIAL IV PRN (05:30)
[2016-10-12] MEDS ORDERED: PROMETHAZINE HCL 25 MG TABLET PO PRN (05:35)
[2016-10-12] MEDS ORDERED: ACETAMINOPHEN 325 MG TABLET PO PRN (05:35)
--- NOTE | 2016-10-12 06:06 | PDOC H&P ---
History of Present Illness Admission Date/PCP: 10/12/16 04:[address] Thuy DUMONT (hypercoagulable syndrome) Patient complains of: Fever, not feeling well History of Present Illness: RAI VOGT is a 61 year old female, with a fairly complicated past medical history, to be delineated under past medical history, who presents to the emergency room for evaluation of above complaints. Patient has been discussed with emergency room nurse practitioner who evaluated the patient. She describes a 3 day history of intermittent fever to 101.5 and above, along with nausea but no vomiting. In general not feeling well. No diarrhea or dysuria. Does state she has been urinating much more frequently than usual. Blood pressures have been somewhat "soft" in the emergency room, but have responded well to IV fluids. Non-home O2 dependent COPD. Several day history of cough productive of much more thick yellow sputum than usual. Initial thoughts by emergency room staff were to discharge patient home. However, she was noted to be hypoxic, with a low of 88%, on room air. Perhaps slight increase in her typical chronic abdominal pain; Crohn's disease, on Humira for same. Hospitalized on our service May 29- of this year with final diagnoses including acute acalculous cholecystitis, acute respiratory failure, left lower lobe pneumonia, requiring intubation, type II non-ST elevation AR, septic shock , acute renal failure, and retroperitoneal bleed. History and physical and discharge summary have been reviewed. has been on a very slow tapering dose of prednisone since then. Ran out of her prednisone, taking 15 mg a day at that time, 3 days ago. Has not been hospitalized since her May 2016 stay here. Once she finished those antibiotics post discharge, she has been on no further antibiotics. Has been off her Arixtra for several months, which she was taking for hypercoagulable syndrome; was told by Dr. Daley 1 week ago to restart this; she has not. Occasional urinary tract infection. Currently resting quietly, stating she does not feel well, and in general quite weak and fatigued. Dictation via voice recognition software. Laboratory results are listed in [employer] and are reviewed. X-ray summary results are listed below, with full report(s) reviewed. . EKG reviewed and compared to prior tracing from June 06 of this year. Social history/personal habits: . Lives with children. On disability. Approximately 15 cigarettes a day. No alcohol or illicit drug use. Allergies/adverse reactions are listed in [employer] and are reviewed. Home medications initially autopopulated into [email or web address] may not accurately reflect patient's true medications, dosages, and/or frequencies. information technology program manager to reconcile medications. Unfortunately, patient not certain of all medications/dosages/frequencies. REVIEW OF SYSTEMS: Constitutional: See history and present illness. Eyes: Wears glasses. Several month history of gradual worsening and blurring of vision in her right eye; states she has an appointment in the near future to see an authorizer. ENT: Chronic swallowing and esophageal problems; followed on a fairly regular basis by gastroenterology. Denies hearing loss. Pulmonary: See history and present illness. Cardiovascular: No current complaints, including chest pain. Gastrointestinal: See history and present illness. Skin: Recent occurrence of intermittent skin rash; scheduled to see a setter off in the near future. Hematologic: Easy bruising. Neurologic: Phantom limb pain, left lower extremity, status post left BKA for peripheral vascular disease. Musculoskeletal: Chronic left lower extremity pain. Psychiatric: Mild anxiety and depression. Denies suicidal or homicidal ideation. Endocrine: No current complaints, including polyuria. Genitourinary: See history and present illness. PHYSICAL EXAMINATION: Female emergency room nurse Ama is present. 5 feet 3 inches tall. 49.9 kg. BMI 19.5 kg/m. Blood pressure 108/71. Pulse 82 and regular. 98% saturation on room air. Respirations are 12 and unlabored. Temperature 99.0. Chronically ill-appearing female who appears a number of years older than her stated age. Appears to feel a bit under the weather, so to speak. Otherwise, pleasant awake alert and cooperative. Mildly anxious, without agitation. Skin is warm and dry. No subcutaneous nodules palpated. Very faint probable "heat rash" on her left BKA stump after the compression dressing is removed. ENT: Hearing grossly normal to normal conversation. Tongue midline on protrusion pink and slightly tacky. Eyes: No scleral icterus. Pupils equal and reactive to light at 4 mm. [place] conjunctivae. Neck is supple and nontender to gentle active range of motion and palpation. Midline trachea. No palpable thyroid nodule mass enlargement or tenderness. Lymphatic: No palpable cervical or clavicular nodes. Neck and lymphatic exams limited by patient body habitus. Psychiatric: Reasonable insight into acute and chronic medical issues. Oriented to time location and why here. Lungs: Auscultation reveals slightly coarse breath sounds bilaterally, perhaps a bit more noticeable on the left, with mild bilateral brief expiratory wheezing. No use of accessory respiratory muscles. Cardiovascular: Heart regular rate and rhythm, without gallop murmur or rub. No carotid or abdominal aortic bruits. No right ankle or pedal edema. Palpable dorsalis pedis pulse. Abdomen:soft mildly distended with positive bowel sounds. Mild diffuse discomfort, perhaps a bit more noticeable in the upper half of the abdomen. Certainly no evidence of guarding or peritoneal signs. Chronic pain per patient. Unable to adequately evaluate abdomen for masses or organomegaly due to distention and discomfort. Extremities: Right foot warm and dry. No calf tenderness to compression. No grossly obvious visual evidence of calf swelling. Gentle manipulation of lower extremities fails to reveal any obvious evidence of injury or instability to knee hips or ankle. Left BKA stump has healed nicely. Neurologic: Moves upper extremities grossly normally. Patellar reflex absent. Absent Babinski. Light touch intact at foot. Dorsiflexion and plantarflexion 5 / 5. Past Medical History Cardiac Medical History: Reports: DVT, Hypertension, Peripheral Vascular Disease Denies: Atrial Fibrillation, Congestive Heart Failure, Hyperlipidema, Pulmonary Embolism Pulmonary Medical History: Reports: Asthma, Sleep Apnea - Has not worn CPAP for some time now. Denies: Chronic Obstructive Pulmonary Disease (COPD) Neurological Medical History: Reports: Migraine, Other - History of TIA. Denies: Hemorrhagic CVA, Ischemic CVA, Seizures Endocrine Medical History: Reports: Diabetes Mellitus Type 1 Denies: Diabetes Mellitus Type 2, Hyperthyroidism, Hypothyroidism Renal/ Medical History: Reports: None GI Medical History: Reports: Crohn's Disease, Gastroesophageal Reflux Disease, Other - Distant history of peptic ulcer disease. Denies: Cirrhosis, Hepatitis Musculoskeltal Medical History: Reports: Arthritis, Other - Phantom limb pain, left lower extremity Skin Medical History: Reports: Other - Recent skin rash, to see setter off in near future. Psychiatric Medical History: Reports: Depression, General Anxiety Disorder, Tobacco Dependency Denies: Alcohol Dependency, Substance Abuse Hematology: Reports: Anemia - Easy bruising. Infectious Medical History: Denies: Hepatitis B, Hepatitis C Past Surgical History Past Surgical History: Reports: Section, Orthopedic Surgery - R knee; R shoulder; L BKA, Tonsillectomy Social History Information Source: Patient, Emergency Med Personnel, [facility] Records Lives with: Family Smoking Status: Current Every Day Smoker Frequency of Alcohol Use: None Hx Recreational Drug Use: No Drugs: None Hx Prescription Drug Abuse: No - Advance Directive Resuscitation Status: Full Code Surrogate healthcare decision maker:: Children Family History Family History: None Parental Family History Reviewed: Yes - Mother with recent open heart surgery. Uncertain cause of father's . Children Family History Reviewed: Yes - Healthy Sibling(s) Family History Reviewed.: Yes - Medication/Allergy Home Medications: Acetaminophen/Caffeine [Excedrin Tension Headache Cplt] 1 tab PO DAILYP PRN Albuterol Sulfate [Ventolin Hfa] 2 puff IH Q4HP PRN 10/12/16 Hydromorphone HCl [Dilaudid] 4 mg PO QIDP PRN 10/12/16 Metoclopramide HCl [Reglan 10 mg Tablet] 10 mg PO BID 10/12/16 Multivitamin with Iron [Multivitamins with Iron] 1 tab PO DAILY 10/12/16 Oxycodone HCl [Oxycontin] 15 mg PO TID 10/12/16 Oxycodone HCl/Acetaminophen [Percocet 10-325 mg Tablet] 1 tab PO Q4HP PRN Promethazine HCl [Phenergan 25 mg Tablet] 25 mg PO QPM 10/12/16 Ranitidine HCl [Zantac 150 mg Tablet] 150 mg PO BID 10/12/16 Rizatriptan Benzoate [Rizatriptan] 5 mg PO DAILYP PRN 10/12/16 Levofloxacin [Levaquin 750 mg Tablet] 750 mg PO DAILY #5 tablet 10/13/16 Prednisone 10 mg PO ASDIR #21 tablet 10/13/16 Simethicone [Mylicon 80 mg Chewable Tablet] 80 mg PO Q6 tab.chew 10/13/16 Allergies/Adverse Reactions: Sulfa (Sulfonamide Antibiotics) Allergy (Verified 05/04/16 04:41) Physical Exam Vital Signs: Temp Pulse Resp BP Pulse Ox 99.0 F 94 12 95/73 L 100 10/12/16 05:37 10/11/16 22:30 10/12/16 05:15 10/12/16 05:11 10/12/16 05:15 Results Impressions: Chest X-Ray 10/11/16 23:11 IMPRESSION: Mild chronic interstitial lung disease pattern. Assessment & Plan - Diagnosis (1) COPD exacerbation Is this a current diagnosis for this admission?: Yes Plan: Patient will be admitted under COPD exacerbation protocol. Incentive spirometry twice a day. Scheduled DuoNeb's. As needed albuterol nebs. Antibiotics will consist of Zosyn and intravenous Zithromax. Sputum culture results from May of this year reviewed. I strongly encouraged patient to notify staff should patient feel that breathing is worsening. Patient is a full code. I have strongly encouraged patient not to get out of bed without notifying staff , to avoid a fall with injury. Knee high SCDs for DVT prophylaxis, along with subcutaneous Arixtra. Impression and plans were discussed with patient who concurs. Time spent in evaluation and management of patient: 82 minutes. (2) Hypoxia Is this a current diagnosis for this admission?: Yes Plan: Likely result of her COPD exacerbation. (3) UTI (urinary tract infection) Qualifiers: Urinary tract infection type: site unspecified Is this a current diagnosis for this admission?: Yes Plan: Prior urine culture results noted. Continue Zosyn. (4) Immunosuppressed status Is this a current diagnosis for this admission?: Yes Plan: We will hold Humira. (5) Steroid dependence Is this a current diagnosis for this admission?: Yes Plan: Her lack of steroid intake for the past 3 days may partially explain her somewhat soft blood pressures. Solu-Cortef. Increased IV fluids. (6) Chronic anticoagulation Is this a current diagnosis for this admission?: Yes Plan: Resume Arixtra, per Dr. Daley's instructions to patient. 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 Resume home medications as appropriate once these have been determined and reviewed. (8) HTN (hypertension) Qualifiers: Hypertension type: essential hypertension Qualified Code(s): I10 - Essential (primary) hypertension Is this a current diagnosis for this admission?: Yes Plan: We will hold antihypertensives until blood pressure more stable. (9) ANTWAN (obstructive sleep apnea) Is this a current diagnosis for this admission?: Yes Plan: CPAP nightly. (10) Tobacco dependency Is this a current diagnosis for this admission?: Yes Plan: As needed nicotine patch. - Time Time Spent: Greater than 70 Minutes Anticipated discharge: Home Within: within 72 hours - Inpatient Certification Based on my medical assessment, after consideration of the patient's comorbidities, presenting symptoms, or acuity I expect that the services needed warrant INPATIENT care.: Yes I certify that my determination is in accordance with my understanding of Medicare's requirements for reasonable and necessary INPATIENT services [42 CFR 412.3e].: Yes Medical Necessity: Significant Comorbidiites Make Outpatient Treatment Too Risky , Need Close Monitoring Due to Risk of Patient Decompensation, Need For IV Fluids, Need For Continuous Telemetry Monitoring, Need for IV Antibiotics, Risk of Complication if Not Cared For in Hospital Post Hospital Care: D/C or Transfer Summary
[2016-10-12] MEDS ORDERED: NICOTINE 14 MG/24 HR PATCH.TD24 TD PRN (06:08)
[2016-10-12] MEDS ORDERED: PIPERACILLIN/TAZOBACTAM 4.5 GM VIAL IV ONE (06:36)
[2016-10-12] MEDS: LANSOPRAZOLE 30 MG TAB.RAP.DR PO SCH (06:50)
[2016-10-12 06:52] LABS: ABSOLUTE BASOPHILS # (AUTO) 0.1 10^3/uL (0.0-0.2); ABSOLUTE EOSINOPHILS # (AUTO) 0.1 10^3/uL (0.0-0.6); ABSOLUTE LYMPHOCYTES (AUTO) 1.8 10^3/uL (0.5-4.7); ABSOLUTE MONOCYTES (AUTO) 0.8 10^3/uL (0.1-1.4); ABSOLUTE NEUT (AUTO) 4.9 10^3/uL (1.7-8.2); BASOPHILS % (AUTO) 0.9 % (0-2); EOSINOPHILS % (AUTO) 1.4 % (0-6); HEMATOCRIT 29.2 % (36.0-47.0); HGB HCT DIFFERENCE -0.7; LYMPHOCYTES % (AUTO) 23.1 % (13-45); MEAN CORPUSCULAR HEMOGLOBIN 30.3 pg (27.0-33.4); MEAN CORPUSCULAR HGB CONC 32.4 g/dL (32.0-36.0); MEAN CORPUSCULAR VOLUME 93 fl (80-97); MONOCYTES % (AUTO) 10.8 % (3-13); RED BLOOD COUNT 3.13 10^6/uL (3.72-5.28); RED CELL DISTRIBUTION WIDTH 14.9 % (11.5-14.0); SEGMENTED NEUTROPHILS % (AUTO) 63.8 % (42-78); WHITE BLOOD COUNT 7.7 10^3/uL (4.0-10.5)
[2016-10-12 06:56] LABS: HEMOGLOBIN 9.5 g/dL (12.0-15.5)
[2016-10-12 07:03] LABS: BLOOD UREA NITROGEN 14 mg/dL (7-20); CALCIUM 8.4 mg/dL (8.4-10.2); CARBON DIOXIDE 25 mmol/L (22-30); CHLORIDE 109 mmol/L (98-107); CREATININE RESULT 0.61 mg/dL (0.52-1.25); GLUCOSE 79 mg/dL (75-110); POTASSIUM 3.8 mmol/L (3.6-5.0); SODIUM 138.1 mmol/L (137-145)
[2016-10-12 07:09] LABS: ANION GAP 4 (5-19)
[2016-10-12] MEDS: IPRATROPIUM/ALBUTEROL 0.5-2.5 MG/3 ML AMPUL NEB SCH ×3 (07:59→20:43)
[2016-10-12] MEDS: FONDAPARINUX SODIUM INJ 2.5 MG/0.5 ML DISP.SYRIN SUBCUT SCH (09:01)
--- NOTE | 2016-10-12 09:26 | EKG REPORT ---
SEVERITY:- BORDERLINE ECG - SINUS RHYTHM BORDERLINE T ABNORMALITIES, INFERIOR LEADS : Confirmed by: Jhon Ledezma 12-Oct-2016 09:25:02
[2016-10-12] MEDS ORDERED: HYDROMORPHONE HCL 2 MG TABLET PO PRN (10:19)
[2016-10-12] MEDS: AZITHROMYCIN 500 MG in DEXTROSE 5%-WATER 250 ML IV SCH (10:33)
[2016-10-12] MEDS: PIPERACILLIN SODIUM/TAZOBACTAM 4.5 GM in NORMAL SALINE 100 ML IV SCH ×2 (12:25→17:43)
--- NOTE | 2016-10-12 13:02 | Physician Advisory Note ---
Physician Advisor ProgressNote .: Pursuant to the plan for [facility], I have reviewed the medical record for this patient. Physician Advisor Statement: Please consider documenting, if you agree: 1. "Acute bronchitis" or "suspected ___ [gram-neg/pos? aspiration?] pneumonia , not seen on CXR due to ____" - or whatever is being tx'd with the current abx (current combo/dosing appears c/w pulmonary infection being tx'd along w/UTI) 2. ?? - "possible sepsis, present on admission, due to ___ [which infxn], evidenced by " [MAP as low as 67 repeatedly/recurrent hypotension, hypoxemia in the 80s on RA (so P/F ratio 257), fevers, leukocytosis, tachycardia ... - meets Sepsis-2 criteria, & Sepsis-3 criteria w/SOFA score 3 if the hypoxemia is felt due to sepsis. If hypoxemia is not felt due to sepsis but due to primary lung dx, then only has SOFA score of 1.] - If >2-3L total of IVF boluses, &/or pressors, are needed to maintain clinically adequate BP, please consider documenting "septic shock" or " hypovolemic shock" .... STatus: extremely high risk pt w/COPD, asthma, evidence of interstit lung dz by CXR, ANTWAN not using CPAP, immunocompromise from DM-1 & Humira tx for Crohn's dz, recent very complex hospitalization in May w/septic shock, ARF, AcResp Failure/PNA/intubation, retroperitoneal bleed, T2 NSTEMI - also w/ hypercoagulable syndrome/DVTs, noncompliance w/Arixtra, PVD w/Lt BKA, chronic swallowing/esoph prob.s, past TIA - presented 10/11 late PM with body aches, feeling weak, reporting fevers 101.5 (took Tylenol before coming in), intermittent SOB, increased sputum production with cough, ur freq, having run out of her prednisone from very slow taper since May, (+)hypoxemia 88% RA (P/F ratio 257) requiring 2-3L O2, pain severe requiring Fentanyl, hypotension that initially responded to IVF bolus but then recurred & continued after abx begun, HR 90s, tongue slightly tacky, BS slightly coarse with mild wheezing, WBC 13.3, (+)U/A, glc 53, CXR = mild chronic ILD pattern. Begun on O2, Zithromax IV, IV LEvaquin & Zosyn 4.5gm q6h, prn po Dilaudid. IVF boluses were ordered overnight due to recurrent hypotension to 80s-90s/50s-60s. Not yet clinically stable for d/c after 1 MN of aggressive hospital care. May be in shock. Very high risk for further decompensation. Appropriate for Inpatient status. Thanks! CK
[2016-10-12] MEDS: HYDROCORTISONE SOD SUCCINATE INJ/PF 100 MG/2 ML SDV IV SCH ×2 (13:49→21:21)
[2016-10-12] MEDS ORDERED: NORMAL SALINE 1000 ML 1,000 ML IV PRN (14:00)
[2016-10-12] MEDS: HYDROMORPHONE HCL 2 MG TABLET PO PRN ×2 (16:49→21:19)
[2016-10-12] MEDS: INSULIN LISPRO 100 UNIT/ML 3 ML VIAL SUBCUT PRN (20:38)
[2016-10-13] MEDS: PIPERACILLIN SODIUM/TAZOBACTAM 4.5 GM in NORMAL SALINE 100 ML IV SCH ×3 (00:11→12:21)
[2016-10-13] MEDS: HYDROMORPHONE HCL 2 MG TABLET PO PRN ×3 (01:21→12:37)
[2016-10-13 04:57] LABS: HEMATOCRIT 27.3 % (36.0-47.0); HEMOGLOBIN 8.9 g/dL (12.0-15.5); HGB HCT DIFFERENCE -0.6; MEAN CORPUSCULAR HEMOGLOBIN 30.5 pg (27.0-33.4); MEAN CORPUSCULAR HGB CONC 32.5 g/dL (32.0-36.0); MEAN CORPUSCULAR VOLUME 94 fl (80-97); RED BLOOD COUNT 2.91 10^6/uL (3.72-5.28); RED CELL DISTRIBUTION WIDTH 14.8 % (11.5-14.0); WHITE BLOOD COUNT 8.2 10^3/uL (4.0-10.5)
[2016-10-13] MEDS: LANSOPRAZOLE 30 MG TAB.RAP.DR PO SCH (06:28)
[2016-10-13] MEDS: HYDROCORTISONE SOD SUCCINATE INJ/PF 100 MG/2 ML SDV IV SCH (06:29)
[2016-10-13] MEDS: FONDAPARINUX SODIUM INJ 2.5 MG/0.5 ML DISP.SYRIN SUBCUT SCH (07:50)
[2016-10-13] MEDS: IPRATROPIUM/ALBUTEROL 0.5-2.5 MG/3 ML AMPUL NEB SCH ×2 (08:23→14:05)
[2016-10-13] MEDS: AZITHROMYCIN 500 MG in DEXTROSE 5%-WATER 250 ML IV SCH (09:53)
[2016-10-13 11:48] VITALS: BP 108/59
[2016-10-13] MEDS ORDERED: PREDNISONE 10 MG TABLET PO ONE (11:48)
[2016-10-13] MEDS: INSULIN LISPRO 100 UNIT/ML 3 ML VIAL SUBCUT PRN (12:29)
[2016-10-13] MEDS ORDERED: SIMETHICONE 80 MG TAB.CHEW PO ONE (13:15)
--- NOTE | 2016-10-13 13:34 | PDOC DISCHARGE SUMMARY ---
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 Is this a current diagnosis for this admission?: Yes (7) HTN (hypertension) Is this a current diagnosis for this admission?: Yes (8) Phantom pain Is this a current diagnosis for this admission?: Yes - Additional Information Resuscitation Status: Full Code Discharge Diet: Cardiac - low fat, low salt, Diabetic - no concentrated sweets Discharge Activity: Activity As Tolerated, Balance Activity w/Rest, Slowly Increase Activity Home Medications: Acetaminophen/Caffeine [Excedrin Tension Headache Cplt] 1 tab PO DAILYP PRN Albuterol Sulfate [Ventolin Hfa] 2 puff IH Q4HP PRN 10/12/16 Hydromorphone HCl [Dilaudid] 4 mg PO QIDP PRN 10/12/16 Metoclopramide HCl [Reglan 10 mg Tablet] 10 mg PO BID 10/12/16 Multivitamin with Iron [Multivitamins with Iron] 1 tab PO DAILY 10/12/16 Oxycodone HCl [Oxycontin] 15 mg PO TID 10/12/16 Oxycodone HCl/Acetaminophen [Percocet 10-325 mg Tablet] 1 tab PO Q4HP PRN Promethazine HCl [Phenergan 25 mg Tablet] 25 mg PO QPM 10/12/16 Ranitidine HCl [Zantac 150 mg Tablet] 150 mg PO BID 10/12/16 Rizatriptan Benzoate [Rizatriptan] 5 mg PO DAILYP PRN 10/12/16 Levofloxacin [Levaquin 750 mg Tablet] 750 mg PO DAILY #5 tablet 10/13/16 Prednisone 10 mg PO ASDIR #21 tablet 10/13/16 Simethicone [Mylicon 80 mg Chewable Tablet] 80 mg PO Q6 tab.chew 10/13/16 Additional Information: CBC and follow-up blood and sputum culture w/ primary physician in 1 week. History of Present Illness Patient complains of: fever History of Present Illness: RAI VOGT is a 61 year old female, with a fairly complicated past medical history, to be delineated under past medical history, who presents to the emergency room for evaluation of above complaints. Patient has been discussed with emergency room nurse practitioner who evaluated the patient. She describes a 3 day history of intermittent fever to 101.5 and above, along with nausea but no vomiting. In general not feeling well at all. No diarrhea or dysuria. Does state she has been urinating much more frequently than usual. Blood pressures have been somewhat "soft" in the emergency room, but have responded well to IV fluids. Non-home O2 dependent COPD. Several day history of cough productive of much more thick yellow sputum than usual. Initial thoughts by emergency room staff were to discharge patient home. However, she was noted to be hypoxic, with a low of 88%, on room air. Perhaps slight increase in her typical chronic abdominal pain; Crohn's disease, on Humira for same. Hospitalized for severe pneumonia, requiring intubation, and May of this year ; has been on a very slow tapering dose of prednisone since then. Ran out of her prednisone, taking 15 mg a day at that time, 3 days ago. Has been off her Arixtra for several months, which she was taking for hypercoagulable syndrome; was told by Dr. Daley 1 week ago to restart this; she has not. Occasional urinary tract infection. Has not been hospitalized since her May 2016 stay here. Once she finished those antibiotics post discharge, she has been on no further antibiotics. Currently resting quietly, stating she does not feel well, and in general quite weak and fatigued. Hospitalized on our service May 29- of this year final diagnoses including acute acalculous cholecystitis, acute respiratory failure, left lower lobe pneumonia, type II non-ST elevation [place], septic shock, acute renal failure, and retroperitoneal bleed. History and physical and discharge summary have been reviewed. Dictation via voice recognition software. Laboratory results are listed in [employer] and are reviewed. X-ray summary results are listed below, with full report(s) reviewed. . EKG reviewed and compared to prior tracing from June 06 of this year. Hospital Course Hospital Course: The patient was admitted to [facility]. Antihypertensive medication was held blood cultures were obtained and intravenous fluid was started. Patient has chronic pain and therefore her narcotics with Dilaudid was resumed. Broad-spectrum antibiotic was started to cover for UTI. Possibility of sepsis was entertained however patient responded well after 24 hours of hydration. No temperature spikes nor hypotension reported. Blood culture so far remain negative. Urine culture was inconclusive. Sputum culture was likewise obtained and result is pending and negative so far. Chest x-ray did not reveal any acute infiltrate. With IV hydration the patient significantly improved and wanted to go back home and continue treatment outpatient. She was advised to follow-up final results of cultures on an on an outpatient basis with primary care physician. She was advised to return to the emergency room if her symptoms recur. No reported fever, denies any diarrhea, nausea or vomiting nor any dysuria urgency or frequency at this time. The rest of the hospital stays unremarkable. Patient advised to hold antihypertensive medication at this time pending reevaluation by her primary care physician before resuming. Physical Exam Vital Signs: Temp Pulse Resp BP Pulse Ox 98.2 F 83 16 108/59 L 97 10/13/16 11:33 10/13/16 11:33 10/13/16 11:33 10/13/16 11:33 10/13/16 11:33 Intake & Output 10/12/16 10/13/16 10/14/16 06:59 06:59 06:59 Intake Total 3645 Balance 3645 Weight 60.1 kg General appearance: PRESENT: no acute distress, cooperative, obese Head exam: PRESENT: normocephalic Eye exam: PRESENT: EOMI Mouth exam: PRESENT: moist, neck supple Neck exam: ABSENT: JVD Respiratory exam: PRESENT: clear to auscultation jenaro. ABSENT: rhonchi, wheezes Cardiovascular exam: PRESENT: RRR. ABSENT: gallop GI/Abdominal exam: PRESENT: hypoactive bowel sounds, soft. ABSENT: distended, tenderness Neurological exam: PRESENT: alert, awake, oriented to time Skin exam: PRESENT: dry, warm. ABSENT: cyanosis Results Laboratory Results: 10/13/16 04:23 10/12/16 06:35 10/13/16 04:23 WBC 8.2 RBC 2.91 L Hgb 8.9 L Hct 27.3 L MCV 94 MCH 30.5 MCHC 32.5 RDW 14.8 H Plt Count 249 Impressions: Chest X-Ray 10/11/16 23:11 IMPRESSION: Mild chronic interstitial lung disease pattern. Qualifiers PATEINT BEING DISCHARGED WITH ANY OF THE FOLLOWING DIAGNOSIS?: No Plan Discharge Plan: Follow-up with primary care physician in 1 week. Time Spent: Less than 30 Minutes
[2016-10-13] MEDS ORDERED: METOCLOPRAMIDE HCL 10 MG TABLET PO SCH (14:00)
[2016-10-13] MEDS ORDERED: SIMETHICONE 80 MG TAB.CHEW PO SCH (18:00)
== END 2016-10-13 15:10 | disposition home or self-care (01) | DRG 191 ==
LOC: ER 22:15 → EH 10-12 04:15 → UNDOADMIN 10-12 04:15 → EH 10-12 05:28 → 3S 10-12 06:04
PROVIDERS: ADMIT Internal Medicine; ATTEND Internal Medicine
DX: J44.1 Chronic obstructive pulmonary disease with (acute) exacerbation (principal); K50.90 Crohn's disease, unspecified, without complications; N39.0 Urinary tract infection, site not specified; J45.998 Other asthma; E11.9 Type 2 diabetes mellitus without complications; I10 Essential (primary) hypertension; R09.02 Hypoxemia; F17.210 Nicotine dependence, cigarettes, uncomplicated; Z89.512 Acquired absence of left leg below knee; Z79.01 Long term (current) use of anticoagulants; Z79.4 Long term (current) use of insulin; Z79.52 Long term (current) use of systemic steroids; Z79.899 Other long term (current) drug therapy; G47.33 Obstructive sleep apnea (adult) (pediatric)
CPT/HCPCS: 36415; 71020; 80048; 80053; 81001; 82803; 82962; 83605; 83735; 84443; 85025; 85027; 85610; 87040; 87070; 87086; 87205; 93005; 93010; 94799; 99285; J0456; J1652; J1720; J1815; J1956; J2543; J3010; J3490; J7030; J7060; J7512; J7620

== ENCOUNTER 2016-11-08 13:10 | Emergency (ER) | payer MEDICARE, MEDICAID ==
[2016-11-08] MEDS ORDERED: IPRATROPIUM/ALBUTEROL 0.5-2.5 MG/3 ML AMPUL NEB ONE ×3 (14:14→15:44)
--- NOTE | 2016-11-08 14:15 | ER Document Report ---
ED Medical Screen (RME) - General Chief Complaint: Pain All Over Stated Complaint: NAUSEA/DIZZY Time Seen by Provider: 11/08/16 14:10 Mode of Arrival: Ambulatory Information source: Patient Notes: 61-year-old female presents with complaints of feeling lightheaded dizzy and nauseous and weak. Patient has a history of anemia Crohn's disease recent pneumonia I have greeted and performed a rapid initial assessment of this patient. A comprehensive ED assessment and evaluation of the patient, analysis of test results and completion of the medical decision making process will be conducted by additional ED providers. PHYSICAL EXAMINATION: GENERAL: Well-appearing, well-nourished and in no acute distress. HEAD: Atraumatic, normocephalic. EYES: Pupils equal round extraocular movements intact, conjunctiva are normal. ENT: Nares patent NECK: Normal range of motion LUNGS: No respiratory distress left upper lobe wheezing Musculoskeletal: Normal range of motion NEUROLOGICAL: Normal speech, normal gait. PSYCH: Normal mood, normal affect. SKIN: Warm, Dry, normal turgor, no rashes or lesions noted. TRAVEL OUTSIDE OF THE [place] IN LAST 30 DAYS: No - Related Data Allergies/Adverse Reactions: Sulfa (Sulfonamide Antibiotics) Allergy (Verified 11/08/16 13:40) Past Medical History - Social History Frequency of alcohol use: None Drug Abuse: None - Past Medical History Cardiac Medical History: Reports: Hx DVT, Hx Hypertension, Hx Peripheral Vascular Disease Denies: Hx Atrial Fibrillation, Hx Congestive Heart Failure, Hx Hypercholesterolemia, Hx Pulmonary Embolism Pulmonary Medical History: Reports: Hx Asthma, Hx Sleep Apnea - Has not worn CPAP for some time now. Denies: Hx COPD Neurological Medical History: Reports: Hx Migraine. Denies: Hx Seizures Endocrine Medical History: Reports: Hx Diabetes Mellitus Type 1. Denies: Hx Diabetes Mellitus Type 2, Hx Hyperthyroidism, Hx Hypothyroidism Renal/ Medical History: Denies: Hx Peritoneal Dialysis GI Medical History: Reports: Hx Crohn's Disease, Hx Gastroesophageal Reflux Disease. Denies: Hx Cirrhosis, Hx Hepatitis Musculoskeltal Medical History: Reports Hx Arthritis Psychiatric Medical History: Reports: Hx Depression Infectious Medical History: Denies: Hx Hepatitis Past Surgical History: Reports: Hx Section, Hx Orthopedic Surgery - R knee; R shoulder; L BKA, Hx Tonsillectomy. Denies: Hx Hysterectomy - Immunizations Hx Diphtheria, Pertussis, Tetanus Vaccination: Yes Physical Exam - Vital signs Vitals: Temp Pulse Resp BP Pulse Ox 98.4 F 74 16 145/95 H 95 11/08/16 13:43 11/08/16 13:43 11/08/16 13:43 11/08/16 13:43 11/08/16 13:43 Course - Vital Signs Vital signs: Temp Pulse Resp BP Pulse Ox 98.4 F 74 16 145/95 H 95 11/08/16 13:43 11/08/16 13:43 11/08/16 13:43 11/08/16 13:43 11/08/16 13:43
[2016-11-08] MEDS ORDERED: ONDANSETRON HCL INJ/PF 4 MG/2 ML SDV IV ONE (14:16)
--- NOTE | 2016-11-08 15:26 | RADIOLOGY REPORT (SQ) ---
EXAM DESCRIPTION: CHEST PA/LAT COMPLETED DATE/TIME: 11/08/2016 3:16 pm REASON FOR STUDY: cough ,left upper lobe COMPARISON: None. EXAM PARAMETERS: NUMBER OF VIEWS: two views TECHNIQUE: Digital Frontal and Lateral radiographic views of the chest acquired. RADIATION DOSE: NA LIMITATIONS: none FINDINGS: LUNGS AND PLEURA: No opacities, masses or pneumothorax. No pleural effusion. MEDIASTINUM AND HILAR STRUCTURES: No masses or contour abnormalities. HEART AND VASCULAR STRUCTURES: Heart normal size. No evidence for failure. BONES: Scoliosis. HARDWARE: None in the chest. OTHER: No other significant finding. IMPRESSION: NO SIGNIFICANT RADIOGRAPHIC FINDING IN THE CHEST. TECHNICAL DOCUMENTATION: JOB ID: [id number] [employer]- All Rights Reserved
[2016-11-08 15:37] LABS: ABSOLUTE BASOPHILS # (AUTO) 0.1 10^3/uL (0.0-0.2); ABSOLUTE EOSINOPHILS # (AUTO) 0.2 10^3/uL (0.0-0.6); ABSOLUTE LYMPHOCYTES (AUTO) 1.7 10^3/uL (0.5-4.7); ABSOLUTE MONOCYTES (AUTO) 0.6 10^3/uL (0.1-1.4); ABSOLUTE NEUT (AUTO) 4.7 10^3/uL (1.7-8.2); BASOPHILS % (AUTO) 0.7 % (0-2); EOSINOPHILS % (AUTO) 2.7 % (0-6); HEMATOCRIT 35.8 % (36.0-47.0); HEMOGLOBIN 12.1 g/dL (12.0-15.5); HGB HCT DIFFERENCE 0.5; LYMPHOCYTES % (AUTO) 23.5 % (13-45); MEAN CORPUSCULAR HEMOGLOBIN 29.7 pg (27.0-33.4); MEAN CORPUSCULAR HGB CONC 33.7 g/dL (32.0-36.0); MONOCYTES % (AUTO) 8.6 % (3-13); RED BLOOD COUNT 4.07 10^6/uL (3.72-5.28); RED CELL DISTRIBUTION WIDTH 13.8 % (11.5-14.0); SEGMENTED NEUTROPHILS % (AUTO) 64.5 % (42-78); WHITE BLOOD COUNT 7.3 10^3/uL (4.0-10.5)
[2016-11-08 15:46] LABS: APPEARANCE,URINE SLIGHTLY-CLOUDY; BILIRUBIN,URINE NEGATIVE (NEGATIVE); GLUCOSE, URINE NEGATIVE (NEGATIVE); KETONES,URINE NEGATIVE (NEGATIVE); LEUKOCYTE ESTERASE,URINE NEGATIVE (NEGATIVE); MEAN CORPUSCULAR VOLUME 88 fl (80-97); NITRITE,URINE NEGATIVE (NEGATIVE); PROTEIN,URINE NEGATIVE (NEGATIVE); URINE SPECIFIC GRAVITY 1.021; UROBILINOGEN,URINE NEGATIVE mg/dL (<2.0)
[2016-11-08 15:57] LABS: ALANINE AMINOTRANSFERASE 23 U/L (9-52); ALBUMIN 3.8 g/dL (3.5-5.0); ALKALINE PHOSPHATASE 98 U/L (38-126); ANION GAP 12 (5-19); ASPARTATE AMINO TRANSFERASE 31 U/L (14-36); BILIRUBIN,DIRECT 0.4 mg/dL (0.0-0.4); BILIRUBIN,TOTAL 0.4 mg/dL (0.2-1.3); BLOOD UREA NITROGEN 12 mg/dL (7-20); CALCIUM 10.5 mg/dL (8.4-10.2); CARBON DIOXIDE 30 mmol/L (22-30); CHLORIDE 100 mmol/L (98-107); CREATINE KINASE 34 U/L (30-135); CREATININE RESULT 0.84 mg/dL (0.52-1.25); GLUCOSE 90 mg/dL (75-110); LIPASE 44.6 U/L (23-300); MAGNESIUM 1.5 mg/dL (1.6-2.3); POTASSIUM 3.2 mmol/L (3.6-5.0); SODIUM 142.2 mmol/L (137-145); TOTAL PROTEIN 6.9 g/dL (6.3-8.2)
[2016-11-08 16:08] LABS: CREATINE KINASE MB 0.59 ng/mL (<4.55)
[2016-11-08 16:09] LABS: TROPONIN I < 0.012 ng/mL
[2016-11-08] MEDS ORDERED: POTASSIUM CHLORIDE 10 MEQ TABLET.SA PO ONE (16:15)
[2016-11-08] MEDS ORDERED: MAGNESIUM SULFATE/D5W 1 GM/100 ML RTUPB IV ONE (16:15)
[2016-11-08] MEDS ORDERED: NORMAL SALINE 1000 ML 1,000 ML IV ONE (16:15)
[2016-11-08] MEDS ORDERED: POTASSIUM CHLORIDE 20 MEQ/15 ML UDCUP PO ONE (16:54)
--- NOTE | 2016-11-08 16:58 | ER Document Report ---
ED General - General Chief Complaint: Pain All Over Stated Complaint: NAUSEA/DIZZY Time Seen by Provider: 11/08/16 14:10 Mode of Arrival: Ambulatory TRAVEL OUTSIDE OF THE [place] IN LAST 30 DAYS: No - HPI Patient complains to provider of: Diffuse body pain dizziness nausea vomiting Notes: Patient coming in for diffuse body pain dizziness nausea vomiting. Patient has a history of Crohn's disease COPD and cardiovascular disease patient has had a BKA of the left leg. Patient recently was admitted for COPD exacerbation along with UTI. Patient states that she think she left the hospital too soon otherwise feels generally weak and having nausea vomiting. Patient states multiple bouts of nausea vomiting patient denies any fevers or chills denies any specific abdominal pain or chest pain. Patient is in no obvious distress upon my evaluation. - Related Data Allergies/Adverse Reactions: Sulfa (Sulfonamide Antibiotics) Allergy (Verified 11/08/16 13:40) Past Medical History - General Information source: Patient - Social History Smoking Status: Former Smoker Frequency of alcohol use: None Drug Abuse: None Family History: None Patient has suicidal ideation: No - Past Medical History Cardiac Medical History: Reports: Hx DVT, Hx Hypertension, Hx Peripheral Vascular Disease Denies: Hx Atrial Fibrillation, Hx Congestive Heart Failure, Hx Hypercholesterolemia, Hx Pulmonary Embolism Pulmonary Medical History: Reports: Hx Asthma, Hx Sleep Apnea - Has not worn CPAP for some time now. Denies: Hx COPD Neurological Medical History: Reports: Hx Migraine. Denies: Hx Seizures Endocrine Medical History: Reports: Hx Diabetes Mellitus Type 1. Denies: Hx Diabetes Mellitus Type 2, Hx Hyperthyroidism, Hx Hypothyroidism Renal/ Medical History: Denies: Hx Peritoneal Dialysis GI Medical History: Reports: Hx Crohn's Disease, Hx Gastroesophageal Reflux Disease. Denies: Hx Cirrhosis, Hx Hepatitis Musculoskeltal Medical History: Reports Hx Arthritis Psychiatric Medical History: Reports: Hx Depression Infectious Medical History: Denies: Hx Hepatitis Past Surgical History: Reports: Hx Section, Hx Orthopedic Surgery - R knee; R shoulder; L BKA, Hx Tonsillectomy. Denies: Hx Hysterectomy - Immunizations Hx Diphtheria, Pertussis, Tetanus Vaccination: Yes Review of Systems - Review of Systems Constitutional: Other - Myalgias dizziness EENT: No symptoms reported Cardiovascular: No symptoms reported Respiratory: No symptoms reported Gastrointestinal: No symptoms reported Genitourinary: No symptoms reported Female Genitourinary: No symptoms reported Musculoskeletal: No symptoms reported Skin: No symptoms reported Hematologic/Lymphatic: No symptoms reported Neurological/Psychological: No symptoms reported Physical Exam - Vital signs Vitals: Temp Pulse Resp BP Pulse Ox 98.4 F 74 16 145/95 H 95 11/08/16 13:43 11/08/16 13:43 11/08/16 13:43 11/08/16 13:43 11/08/16 13:43 Interpretation: Normal - General General appearance: Appears well, Alert - HEENT Head: Normocephalic, Atraumatic Eyes: Normal Pupils: PERRL - Respiratory Respiratory status: No respiratory distress Chest status: Nontender Breath sounds: Normal Chest palpation: Normal - Cardiovascular Rhythm: Regular Heart sounds: Normal auscultation Murmur: No - Abdominal Inspection: Normal Distension: No distension Bowel sounds: Normal Tenderness: Nontender Organomegaly: No organomegaly - Back Back: Normal, Nontender - Extremities General upper extremity: Normal inspection, Nontender, Normal color, Normal ROM , Normal temperature General lower extremity: Normal inspection - BK left, Nontender, Normal color, Normal ROM, Normal temperature, Normal weight bearing. No: Kika's sign - Neurological Neuro grossly intact: Yes Cognition: Normal Orientation: AAOx4 [place] Coma Scale Eye Opening: Spontaneous Jose Alberto Coma Scale Verbal: Oriented [place] Coma Scale Motor: Obeys Commands [place] Coma Scale Total: 15 Speech: Normal Motor strength normal: LUE, RUE, LLE, RLE Sensory: Normal - Psychological Associated symptoms: Normal affect, Normal mood - Skin Skin Temperature: Warm Skin Moisture: Dry Skin Color: Normal Course - Re-evaluation Re-evalutation: 11/08/16 16:57 Lab work shows hypomagnesia and hypokalemia these will be replaced. Otherwise no critical etiology seen. Chest x-ray is clear urinalysis does have an increased specific gravity could be slight dehydration. Patient was hydrated and able to take oral potassium. Otherwise he noted critical etiology. Patient is on high doses of oral narcotics 4 mg of Dilaudid and 15 mg of OxyContin. Patient continues asked for pain medication. Vital signs are otherwise stable. Will offer patient a nonnarcotic pain medicine otherwise plan is more likely discharge home. - Vital Signs Vital signs: Temp Pulse Resp BP Pulse Ox 98.1 F 71 18 140/91 H 96 11/08/16 18:07 11/08/16 18:07 11/08/16 18:07 11/08/16 18:07 11/08/16 18:07 - Laboratory Result Diagrams: 11/08/16 15:03 11/08/16 15:03 Laboratory results interpreted by me: 11/08/16 11/08/16 15:03 15:03 Hct 35.8 L Potassium 3.2 L Calcium 10.5 H Magnesium 1.5 L Discharge - Discharge Clinical Impression: Hypokalemia, Hypomagnesemia Hx of BKA Qualifiers: Laterality: unspecified laterality Qualified Code(s): Z89.519 - Acquired absence of unspecified leg below knee Nausea & vomiting Qualifiers: Vomiting type: unspecified Vomiting Intractability: unspecified Qualified Code( s): R11.2 - Nausea with vomiting, unspecified Condition: Good Disposition: HOME, SELF-CARE Instructions: Hypokalemia ([facility]), Nausea or Vomiting, Nonspecific ([facility]), Viral Syndrome ([facility]) Additional Instructions: Your laboratory studies today only shows slight decrease in your magnesium and potassium levels. These were replaced here in the ER. I will send you home with a prescription for Phenergan tablets and Phenergan suppositories. Please follow-up with your primary care physician return to ER symptoms worsen. Prescriptions: Promethazine HCl [Phenergan 25 mg Tablet] 1 tab PO Q6H PRN #20 tablet PRN Reason: Promethazine HCl [Phenergan 25 mg Supp.rect] 1 supp TN Q6H #20 supp.rect
[2016-11-08] MEDS ORDERED: PROCHLORPERAZINE EDISYLATE INJ 10 MG/2 ML VIAL IV ONE (17:20)
[2016-11-08] MEDS ORDERED: HYDROMORPHONE HCL 2 MG TABLET PO ONE (17:20)
[2016-11-08 18:08] VITALS: BP 140/91
[2016-11-08 18:38] LABS: URINE BARBITURATES SCREEN UNCONFIRMED POSITIVE; URINE METHADONE SCREEN NEGATIVE; URINE OPIATES LOW UNCONFIRMED POSITIVE; URINE PHENCYCLIDINE SCREEN NEGATIVE
== END 2016-11-08 18:08 | disposition home or self-care (01) ==
LOC: ER 13:10
DX: R11.2 Nausea with vomiting, unspecified (principal); E83.42 Hypomagnesemia; E87.6 Hypokalemia; R42 Dizziness and giddiness; M79.1 Myalgia; R53.1 Weakness; E10.51 Type 1 diabetes mellitus with diabetic peripheral angiopathy without gangrene; J44.9 Chronic obstructive pulmonary disease, unspecified; I10 Essential (primary) hypertension; Z87.891 Personal history of nicotine dependence; Z89.512 Acquired absence of left leg below knee; Z88.2 Allergy status to sulfonamides; Z87.440 Personal history of urinary (tract) infections; Z86.718 Personal history of other venous thrombosis and embolism; Z79.891 Long term (current) use of opiate analgesic
CPT/HCPCS: 94640 ×2; 99284; 96375; 96365; 86900; 86901; 36415; 82553; 86850; 82550; 83690; 83735; 85025; 80053; 81001; 84484; 80307; 71020; A9270 ×3; J3475; J0780; J2405; J7030; J7620

== ENCOUNTER 2017-04-29 09:57 | Outpatient (CLI) | payer MEDICARE, MEDICAID ==
[~2017-04-29 09:57] MED LIST changes: +FERUMOXYTOL (NON-ESRD) 510 MG/NS 100 ML IV PRN; +NORMAL SALINE 250 ML IV PRN; -SUCCINYLCHOLINE CHLORIDE INJ 200 MG/10 ML VIAL ONE
[2017-04-29 10:59] VITALS: BP 156/62
== END 2017-04-29 11:24 | disposition home or self-care (01) ==
LOC: II 09:57 → 5TH 10:00 → II 11:24
PROVIDERS: ATTEND Internal Medicine
PROC: 3E033GC Introduction of Other Therapeutic Substance into Peripheral Vein, Percutaneous Approach (ICD-10-PCS; principal; 2017-04-29)
DX: D50.8 Other iron deficiency anemias (principal); K90.9 Intestinal malabsorption, unspecified
CPT/HCPCS: 96365; Q0138

== ENCOUNTER 2017-05-06 10:15 | Outpatient (CLI) | payer MEDICARE, MEDICAID ==
[2017-05-06 10:33] VITALS: BP 112/75
== END 2017-05-06 12:35 | disposition home or self-care (01) ==
LOC: II 10:15 → 5TH 10:20 → II 12:35
PROVIDERS: ATTEND Internal Medicine
PROC: 3E033GC Introduction of Other Therapeutic Substance into Peripheral Vein, Percutaneous Approach (ICD-10-PCS; principal; 2017-05-06)
DX: D50.8 Other iron deficiency anemias (principal); K90.9 Intestinal malabsorption, unspecified
CPT/HCPCS: 96365; Q0138

== ENCOUNTER → 2017-09-01 | Outpatient (CLI) | payer MEDICARE, MEDICAID ==
--- NOTE | 2017-09-01 14:39 | RADIOLOGY REPORT (SQ) ---
EXAM DESCRIPTION: CT LUNG CANCER SCREENING COMPLETED DATE/TIME: 09/01/2017 1:26 pm REASON FOR STUDY: PERSONAL HX OF NICOTINE DEPENDENCE (Z87.891) Z87.891 PERSONAL HISTORY OF NICOTINE DEPENDENCE Has the patient had a Chest CT scan within the past year? No Was the patient offered tobacco cessation counseling? Yes Was the patient engaged in shared decision making for this test? Yes Does the patient have signs or symptoms of Lung Cancer? No Is the patient a smoker? Yes How many packs per year? There is 65 How many years since quitting smoking? Not applicable Patients age: 62 COMPARISON: None. TECHNIQUE: Low Dose CT scan performed of the chest without intravenous contrast for purposes of scre ening for lung cancer. Images reviewed with lung, soft tissue and bone windows. Reconstructed coron al and sagittal MPR images reviewed. All images stored on PACS. All CT scanners at this facility use dose modulation, iterative reconstruction, and/or weight based d osing when appropriate to reduce radiation dose to as low as reasonably achievable (ALARA). [facility]: Dose Right [facility]: CareDose [facility]: Dose Right [facility]: Teradose 4D [facility]: [employer] RADIATION DOSE: CT Rad equipment meets quality standard of care and radiation dose reduction techniq ues were employed. CTDIvol: 1.9 mGy. DLP: 68 mGy-cm. mGy. . LIMITATIONS: None FINDINGS: LUNGS AND PLEURA: No masses or nodules. No pleural effusions or calcifications. No pne umothorax. No scarring or interstitial changes. HILAR AND MEDIASTINAL STRUCTURES: No identified masses. No abnormal nodes. HEART AND VASCULAR STRUCTURES: No aortic aneurysm. No pericardial effusion. No cardiac devices. CORONARY ARTERY CALCIFICATIONS: No significant calcifications. UPPER ABDOMEN, THYROID, BONES, OTHER SOFT TISSUES: No significant findings. Benign hemangioma T10 ve rtebral body. IMPRESSION: NO SIGNIFICANT FINDING IN THE LUNGS ON NON-CONTRASTED CHEST CT. NO OTHER CLINICALLY SIGNIFICANT/POTENTIALLY CLINICALLY SIGNIFICANT FINDINGS LUNGRADS: LUNGRADS: 1 NEGATIVE. NO NODULES, OR DEFINITELY BENIGN NODULES MODIFIER: NONE RECOMMENDATION: Continue annual screening with LDCT in 12 months. COMMENT: CRITERIA: No lung nodules. Nodules with specific calcifications: Complete, central, popcorn, concentric rings and fat containin g nodules. TECHNICAL DOCUMENTATION: JOB ID: [id number] Quality ID # [id number]: Final reports with documentation of one or more dose reduction techniques (e.g., Au tomated exposure control, adjustment of the mA and/or kV according to patient size, use of iterative reconstruction technique) 2010 [facility] Reading location - IP/workstation name: [email or web address]
== END ==
LOC: RAD 13:00
PROVIDERS: ATTEND Physician Assistant Medical
DX: Z12.2 Encounter for screening for malignant neoplasm of respiratory organs (principal); Z87.891 Personal history of nicotine dependence
CPT/HCPCS: G0297

== ENCOUNTER → 2018-02-21 | Outpatient (CLI) | payer MEDICARE, MEDICAID | LOC: LAB 17:57 | PROVIDERS: ATTEND Nurse Practitioner Acute Care | DX: N39.0 Urinary tract infection, site not specified (principal) | CPT/HCPCS: 87086 ==

== ENCOUNTER 2018-04-24 16:03 | Emergency (ER) | payer MEDICARE, MEDICAID ==
[2018-04-24] MEDS ORDERED: ASPIRIN 81 MG TABLET, CHEWABLE PO ONE (17:08)
[2018-04-24] MEDS ORDERED: IPRATROPIUM/ALBUTEROL 0.5-2.5 MG/3 ML AMPUL NEB ONE (17:31)
[2018-04-24] MEDS ORDERED: METHYLPREDNISOLONE INJ 125 MG/2 ML SDV IV ONE (17:32)
[2018-04-24 17:57] LABS: ABSOLUTE LYMPHOCYTES (AUTO) 1.9 10^3/uL (0.5-4.7); ABSOLUTE MONOCYTES (AUTO) 0.9 10^3/uL (0.1-1.4); BASOPHILS % (AUTO) 0.2 % (0-2); EOSINOPHILS % (AUTO) 0.2 % (0-6); HEMATOCRIT 33.1 % (36.0-47.0); HEMOGLOBIN 11.1 g/dL (12.0-15.5); LYMPHOCYTES % (AUTO) 12.2 % (13-45); MEAN CORPUSCULAR HEMOGLOBIN 30.6 pg (27.0-33.4); MEAN CORPUSCULAR HGB CONC 33.6 g/dL (32.0-36.0); MEAN CORPUSCULAR VOLUME 91 fl (80-97); MONOCYTES % (AUTO) 5.6 % (3-13); PLATELET COUNT 477 10^3/uL (150-450); RED BLOOD COUNT 3.64 10^6/uL (3.72-5.28); RED CELL DISTRIBUTION WIDTH 15.1 % (11.5-14.0); SEGMENTED NEUTROPHILS % (AUTO) 81.8 % (42-78); TOTAL CELLS COUNTED % (AUTO) 100 %; WHITE BLOOD COUNT 15.8 10^3/uL (4.0-10.5)
--- NOTE | 2018-04-24 18:06 | RADIOLOGY REPORT (SQ) ---
EXAM DESCRIPTION: CHEST SINGLE VIEW COMPLETED DATE/TIME: 04/24/2018 5:45 pm REASON FOR STUDY: chest pain COMPARISON: 11/08/2016 EXAM PARAMETERS: NUMBER OF VIEWS: One view. TECHNIQUE: Single frontal radiographic view of the chest acquired. RADIATION DOSE: NA LIMITATIONS: None. FINDINGS: LUNGS AND PLEURA: No opacities, masses or pneumothorax. No pleural effusion. MEDIASTINUM AND HILAR STRUCTURES: No masses. Contour normal. HEART AND VASCULAR STRUCTURES: Heart normal in size. Normal vasculature. BONES: No acute findings. HARDWARE: None in the chest. OTHER: No other significant finding. IMPRESSION: NO ACUTE RADIOGRAPHIC FINDING IN THE CHEST. TECHNICAL DOCUMENTATION: JOB ID: [id number] [employer]- All Rights Reserved Reading location - IP/workstation name: [email or web address]
[2018-04-24 18:22] LABS: ALANINE AMINOTRANSFERASE 34 U/L (9-52); ALBUMIN 3.9 g/dL (3.5-5.0); ALKALINE PHOSPHATASE 108 U/L (38-126); ANION GAP 5 (5-19); ASPARTATE AMINO TRANSFERASE 22 U/L (14-36); BILIRUBIN,DIRECT 0.1 mg/dL (0.0-0.4); BILIRUBIN,TOTAL 0.2 mg/dL (0.2-1.3); BLOOD UREA NITROGEN 23 mg/dL (7-20); CALCIUM 9.9 mg/dL (8.4-10.2); CARBON DIOXIDE 33 mmol/L (22-30); CHLORIDE 102 mmol/L (98-107); CREATINE KINASE 38 U/L (30-135); GLUCOSE 89 mg/dL (75-110); POTASSIUM 4.4 mmol/L (3.6-5.0); SODIUM 139.6 mmol/L (137-145); TOTAL PROTEIN 6.1 g/dL (6.3-8.2)
[2018-04-24 18:34] LABS: CREATINE KINASE MB 0.82 ng/mL (<4.55)
[2018-04-24 18:35] LABS: TROPONIN I < 0.012 ng/mL
[2018-04-24] MEDS ORDERED: HYDROMORPHONE HCL INJ/PF 2 MG/ML AMPULE IV ONE (19:00)
--- NOTE | 2018-04-24 19:22 | RADIOLOGY REPORT (SQ) ---
EXAM DESCRIPTION: CTA CHEST COMPLETED DATE/TIME: 04/24/2018 7:06 pm REASON FOR STUDY: pain/ sob/ COMPARISON: Chest x-ray 04/24/2018 TECHNIQUE: CT scan of the chest performed using helical scanning technique with dynamic intravenous contrast injection. Images reviewed with lung, soft tissue and bone windows. Reconstructed coronal and sagittal MPR images reviewed. Additional 3 dimensional post-processing performed to develop Maximal Intensity Projection images (LA P). All images stored on PACS. All CT scanners at this facility use dose modulation, iterative reconstruction, and/or weight based d osing when appropriate to reduce radiation dose to as low as reasonably achievable (ALARA). [facility]: Dose Right [facility]: CareDose [facility]: Dose Right [facility]: Teradose 4D [facility]: [employer] CONTRAST TYPE AND DOSE: contrast/concentration: Isovue 350.00 mg/ml; Total Contrast Delivered: 75.0 ml; Total Saline Delivered: 75.0 ml Contrast bolus adequate for pulmonary arteries and aorta. RENAL FUNCTION: BUN 23 creatinine 0.86 RADIATION DOSE: . LIMITATIONS: None. FINDINGS: LUNGS AND PLEURA: Pulmonary vascular prominence. No infiltrate, effusion, or mass. AORTA AND GREAT VESSELS: No aneurysm. Contrast bolus not optimized for the aorta. HEART: No pericardial effusion. Moderate to marked coronary artery calcifications. PULMONARY ARTERIES: No emboli visualized in the main pulmonary arteries or the segmental branches. HILAR AND MEDIASTINAL STRUCTURES: No identified masses or abnormal nodes. HARDWARE: None in the chest. UPPER ABDOMEN: See separate report of the CT of the abdomen. THYROID AND OTHER SOFT TISSUES: No masses. No adenopathy. BONES: Lower thoracic hemangioma. 3D MIPS: Confirm above findings. OTHER: No other significant finding. IMPRESSION: There is no evidence of pulmonary emboli. Coronary atherosclerosis. Pulmonary vascular prominence. No pulmonary edema. COMMENT: Quality ID # 436: Final reports with documentation of one or more dose reduction techniques (e.g., Automated exposure control, adjustment of the mA and/or kV according to patient size, use of iterative reconstruction technique) TECHNICAL DOCUMENTATION: JOB ID: [id number] [employer]- All Rights Reserved Reading location - IP/workstation name: [email or web address]
--- NOTE | 2018-04-24 19:34 | RADIOLOGY REPORT (SQ) ---
EXAM DESCRIPTION: CTA ABDOMEN/PELVIS W WO COMPLETED DATE/TIME: 04/24/2018 7:06 pm REASON FOR STUDY: pain/ sob/ COMPARISON: 06/18/2016 TECHNIQUE: CT scan of the abdominal aorta extending to the iliac bifurcation performed with and with out intravenous contrast using helical scanning technique with dynamic intravenous contrast injection . Images reviewed with lung, soft tissue, and bone windows. Reconstructed coronal and sagittal MPR im ages reviewed. All images stored on PACS. Advanced 3D imaging as volume rendering, MIPS, SSD performed? Yes All CT scanners at this facility use dose modulation, iterative reconstruction, and/or weight based d osing when appropriate to reduce radiation dose to as low as reasonably achievable (ALARA). [facility]: Dose Right [facility]: CareDose [facility]: Dose Right [facility]: Teradose 4D [facility]: [employer] CONTRAST TYPE AND DOSE: 75 mL Omnipaque 350- low osmolar. RENAL FUNCTION: BUN 23 creatinine 0.86 LIMITATIONS: None. FINDINGS: NON-CONTRASTED IMAGING: No significant renal or bladder calcifications. No other significa nt organ calcifications. POST-CONTRAST IMAGING: AORTA AND VESSELS: No aneurysm. No dissection. Renal arteries, SMA, celiac without stenosis. LUNG BASES: See separate report for CT of the chest LIVER: Normal size. No masses or dilated ducts. SPLEEN: Normal size. No focal lesions. PANCREAS: No masses. No significant calcifications. No adjacent inflammation or peripancreatic fluid collections. Pancreatic duct not dilated. GALLBLADDER: No identified stones by CT criteria. No inflammatory changes to suggest cholecystitis. ADRENAL GLANDS: No significant masses or asymmetry. RIGHT KIDNEY AND URETER: No mass, calculi or urinary tract obstruction. LEFT KIDNEY AND URETER: No mass, calculi or urinary tract obstruction. RETROPERITONEUM: No retroperitoneal adenopathy, hemorrhage or masses. BOWEL AND PERITONEAL CAVITY: No masses or inflammatory changes. No free fluid or peritoneal masses. APPENDIX: Normal. ABDOMINAL WALL: No masses. No hernias. BONY STRUCTURES: No significant or acute findings. 3-D IMAGING: Confirms the above findings. OTHER: No other significant finding. IMPRESSION: NO ABDOMINAL AORTIC ANEURYSM, DISSECTION OR SIGNIFICANT STENOSIS. NO SIGNIFICANT FINDING S IN THE ABDOMEN. TECHNICAL DOCUMENTATION: JOB ID: [id number] Quality ID # [id number]: Final reports with documentation of one or more dose reduction techniques (e.g., Au tomated exposure control, adjustment of the mA and/or kV according to patient size, use of iterative reconstruction technique) 2010 [facility] [employer]- All Rights Reserved Reading location - IP/workstation name: [email or web address]
[2018-04-24] MEDS ORDERED: ALBUTEROL SULFATE 0.083% NEB 2.5 MG/3 ML AMPUL NEB ONE (21:34)
[2018-04-24] MEDS ORDERED: LORAZEPAM INJ 2 MG/1 ML VIAL IV ONE (21:34)
--- NOTE | 2018-04-24 21:36 | ER Document Report ---
ED General - General Chief Complaint: Chest Pain Stated Complaint: CHEST PAIN Time Seen by Provider: 04/24/18 17:16 Primary Care Provider: WAI TIRADO DO [Primary Care Provider] - Follow up tomorrow Mode of Arrival: Ambulatory Information source: Patient Notes: 62-year-old female with peripheral vascular disease, hypertension, type 2 diabetes, Crohn's presents with complaint of 4 days of shortness of breath and chest tightness. Patient states chest tightness had been present for 4 days. She states that she does smoke 2 packs/cigarettes/day. She has been using her rescue inhaler without relief. 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 Patient expresses concern for a pulmonary embolism. Patient also admits to having a current Crohn's flare and is currently on prednisone 60 mg daily. She states that when she felt her chest tightness she was also having abdominal pain. She denies any black or bloody stools. TRAVEL OUTSIDE OF THE [place] IN LAST 30 DAYS: No - HPI Onset: Other Onset/Duration: Gradual, Persistent Quality of pain: Other - Tightness Severity: Mild Pain Level: 1 Associated symptoms: Chest pain, Nonproductive cough, Shortness of breath. denies: Fever, Headache, Hurts to breath, Leg swelling, Nausea, Vomiting Exacerbated by: Coughing Relieved by: Denies Similar symptoms previously: Yes Recently seen / treated by doctor: No - Related Data Allergies/Adverse Reactions: Sulfa (Sulfonamide Antibiotics) Allergy (Verified 11/08/16 13:40) Past Medical History - General Information source: Patient, [facility] Records - Social History Smoking Status: Current Every Day Smoker Cigarette use (# per day): Yes - 25 Smoking Education Provided: Yes - Smoking cessation counseling was provided for 4 minutes at the bedside Frequency of alcohol use: None Drug Abuse: None Lives with: Family Family History: None Patient has suicidal ideation: No Patient has homicidal ideation: No - Past Medical History Cardiac Medical History: Reports: Hx DVT, Hx Hypertension, Hx Peripheral Vascular Disease Denies: Hx Atrial Fibrillation, Hx Congestive Heart Failure, Hx Hypercholesterolemia, Hx Pulmonary Embolism Pulmonary Medical History: Reports: Hx Asthma, Hx Sleep Apnea - Has not worn CPAP for some time now. Denies: Hx COPD Neurological Medical History: Reports: Hx Migraine. Denies: Hx Seizures Endocrine Medical History: Reports: Hx Diabetes Mellitus Type 1. Denies: Hx Diabetes Mellitus Type 2, Hx Hyperthyroidism, Hx Hypothyroidism Renal/ Medical History: Denies: Hx Peritoneal Dialysis GI Medical History: Reports: Hx Crohn's Disease, Hx Gastroesophageal Reflux Disease. Denies: Hx Cirrhosis, Hx Hepatitis Musculoskeletal Medical History: Reports Hx Arthritis Psychiatric Medical History: Reports: Hx Depression Infectious Medical History: Denies: Hx Hepatitis Past Surgical History: Reports: Hx Section, Hx Orthopedic Surgery - R knee; R shoulder; L BKA, Hx Tonsillectomy. Denies: Hx Hysterectomy - Immunizations Hx Diphtheria, Pertussis, Tetanus Vaccination: Yes Review of Systems - Review of Systems Constitutional: denies: Fever, Weakness, Recent illness EENT: denies: Throat pain, Difficulty swallowing Cardiovascular: Chest pain, Palpitations. denies: Edema Respiratory: Cough, Short of breath - Chronic Gastrointestinal: Abdominal pain - Chronic history of Crohn's Genitourinary: denies: Dysuria, Flank pain Female Genitourinary: No symptoms reported Musculoskeletal: Back pain - Chronic back pain and pain management Skin: denies: Rash Hematologic/Lymphatic: No symptoms reported Neurological/Psychological: denies: Seizure, Lost consciousness, Headaches -: Yes All other systems reviewed and negative Physical Exam - Vital signs Vitals: Temp Pulse Resp BP Pulse Ox 99.4 F 96 18 116/74 96 04/24/18 16:34 04/24/18 16:34 04/24/18 16:34 04/24/18 16:34 04/24/18 16:34 - Notes Notes: PHYSICAL EXAMINATION: GENERAL: Well-appearing, well-nourished and in no acute distress. HEAD: Atraumatic, normocephalic. EYES: Pupils equal round and reactive to light, extraocular movements intact, conjunctiva are normal. ENT: Nares patent, oropharynx clear without exudates. Moist mucous membranes. NECK: Normal range of motion, supple without lymphadenopathy LUNGS: Breath sounds clear to auscultation bilaterally and equal. Diffuse expiratory wheezing HEART: Regular rate and rhythm without murmurs ABDOMEN: Soft, nontender, nondistended abdomen. No guarding, no rebound. No masses appreciated. Female : deferred Musculoskeletal: Normal range of motion, no pitting or edema. No cyanosis. NEUROLOGICAL: Cranial nerves grossly intact. Normal speech, normal gait. Normal sensory, motor exams PSYCH: Normal mood, normal affect. SKIN: Warm, Dry, normal turgor, no rashes or lesions noted. Course - Re-evaluation Re-evalutation: Laboratory 04/24/18 04/24/18 04/24/18 17:39 17:39 17:39 WBC 15.8 H RBC 3.64 L Hgb 11.1 L Hct 33.1 L MCV 91 MCH 30.6 MCHC 33.6 RDW 15.1 H Plt Count 477 H Seg Neutrophils % 81.8 H Lymphocytes % 12.2 L Monocytes % 5.6 Eosinophils % 0.2 Basophils % 0.2 Absolute Neutrophils 13.0 H Absolute Lymphocytes 1.9 Absolute Monocytes 0.9 Absolute Eosinophils 0.0 Absolute Basophils 0.0 Sodium 139.6 Potassium 4.4 Chloride 102 Carbon Dioxide 33 H Anion Gap 5 BUN 23 H Creatinine 0.86 Est GFR ( Amer) > 60 Est GFR (Non-Af Amer) > 60 Glucose 89 Calcium 9.9 Total Bilirubin 0.2 Direct Bilirubin 0.1 Neonat Total Bilirubin Not Reportable Neonat Direct Bilirubin Not Reportable Neonat Indirect Bili Not Reportable AST 22 ALT 34 Alkaline Phosphatase 108 Creatine Kinase 38 CK-MB (CK-2) 0.82 Troponin I < 0.012 Total Protein 6.1 L Albumin 3.9 Chest X-Ray 04/24/18 17:08 IMPRESSION: NO ACUTE RADIOGRAPHIC FINDING IN THE CHEST. Abdomen/Pelvis CTA 04/24/18 17:31 IMPRESSION: NO ABDOMINAL AORTIC ANEURYSM, DISSECTION OR SIGNIFICANT STENOSIS. NO SIGNIFICANT FINDINGS IN THE ABDOMEN. Chest/Abdomen CTA 04/24/18 17:31 IMPRESSION: There is no evidence of pulmonary emboli. Coronary atherosclerosis. Pulmonary vascular prominence. No pulmonary edema. Temp Pulse Resp BP Pulse Ox 99.4 F 96 13 95/51 L 96 04/24/18 16:34 04/24/18 16:34 04/24/18 20:18 04/24/18 20:18 04/24/18 20:18 04/24/18 21:35 62-year-old female presents with complaint of chest tightness, shortness of breath, palpitations that have been ongoing for 4 days. Vital signs reviewed upon arrival and patient is afebrile, normotensive and not tachycardic. Patient does not appear toxic or dehydrated. She is in no acute distress. Patient was placed on an cardiac technologist and EKG was obtained which showed the patient to be in normal sinus rhythm at a rate of 95. CBC does show a leukocytosis of 15 the patient is currently taking 60 mg of prednisone daily for her Crohn's. CMP, cardiac enzymes including delta troponin are within normal limits. Chest x-ray was obtained and showed no acute process. CTA of the chest was obtained and showed no evidence of PE. CT of the abdomen was also obtained and showed no evidence of aortic aneurysm, dissection or significant stenosis. Patient did receive breathing treatments, Solu-Medrol and Dilaudid. On reevaluation patient states her chest tightness has improved tremendously. Patient provided a prescription for prednisone, nebulizer machine, albuterol. Advised that she should follow-up with her primary care physician and 24-48 hours. Patient was provided a copy of all of her imaging and lab work that was performed today. Patient was evaluated and treated as appropriate for the patient's presenting symptoms and complaint, with consideration of any critical or life threatening conditions that may be associated with their obtained history and exam as noted above. All results were discussed with patient. Patient provided the opportunity to ask questions, and express concerns. Patient was educated on treatments based on their presumed diagnosis as noted above. At this time we will discharge the patient with return precautions and follow-up recommendations. Verbal discharge instructions given a the bedside. Medication warnings reviewed. Patient is in agreement with this plan and has verbalized understanding of return precautions. After careful consideration I feel that that patient can be safely discharged from the emergency department, they were advised to followup with a primary ca re physician in 2-3 days. Dictation on this chart was performed using voice recognition software and may result in unintended grammatical, spelling, syntax or errors. 04/25/18 01:12 - Vital Signs Vital signs: Temp Pulse Resp BP Pulse Ox 98.0 F 96 18 101/70 94 04/24/18 23:00 04/24/18 16:34 04/24/18 23:00 04/24/18 23:00 04/24/18 23:00 - Laboratory Result Diagrams: 04/24/18 17:39 04/24/18 17:39 Laboratory results interpreted by me: 04/24/18 04/24/18 17:39 17:39 WBC 15.8 H RBC 3.64 L Hgb 11.1 L Hct 33.1 L RDW 15.1 H Plt Count 477 H Seg Neutrophils % 81.8 H Lymphocytes % 12.2 L Absolute Neutrophils 13.0 H Carbon Dioxide 33 H BUN 23 H Total Protein 6.1 L - Diagnostic Test Radiology reviewed: Image reviewed, Reports reviewed - EKG Interpretation by Me EKG shows normal: Sinus rhythm Rate: Normal Rhythm: NSR Discharge - Discharge Clinical Impression: Tobacco dependence, Crohn's disease involving terminal ileum Leukocytosis Qualifiers: Leukocytosis type: unspecified Qualified Code(s): D72.829 - Elevated white blood cell count, unspecified Asthma exacerbation Qualifiers: Asthma severity: unspecified severity Asthma persistence: intermittent Qualified Code(s): J45.21 - Mild intermittent asthma with (acute) exacerbation COPD (chronic obstructive pulmonary disease) Qualifiers: COPD type: unspecified COPD Qualified Code(s): J44.9 - Chronic obstructive pulmonary disease, unspecified Condition: Good Disposition: HOME, SELF-CARE Instructions: Bronchitis With Bronchospasm (Wheezing) ([facility]), Chronic Obstructive Lung Disease ([facility]), Chest Pain of Unclear Cause ([facility]) Additional Instructions: You were seen today for chest pain. The exact cause of your pain is unclear. However, based on your cardiac enzyme testing, chest x-ray, and EKG it does not appear that it is from an immediately life-threatening cause at this time. Although your testing here is normal is critical that you follow-up with your primary care physician for continued evaluation of this chest pain and possible stress testing. I recommended you see your physician within the next 24-48 hours to be evaluated for consideration of a stress test. Please return to e mergency department immediately if you have worsening of your chest pain, shortness of breath, vomiting, become unable to exert yourself due to pain or difficulty breathing, you pass out, or have any pain that radiates into your arms, jaw, or back. Please also return if you have any additional symptoms that are concerning to you. Prescriptions: Albuterol Sulfate [Albuterol Sulfate 5mg/1 mL] 5 mg PO Q4 PRN #25 vial PRN Reason: For Wheezing Nebulizer [Nebulizer Machine] 1 each MC ASDIR PRN #1 kit PRN Reason: RX: Prednisone [Deltasone 20 mg Tablet] 1 tab PO DAILY 7 Days #7 tablet Forms: Smoking Cessation Education Referrals: WAI TIRADO DO [Primary Care Provider] - Follow up tomorrow
--- NOTE | 2018-04-24 21:46 | EKG REPORT ---
SEVERITY:- NORMAL ECG - SINUS RHYTHM : Confirmed by: Naa Douglas MD 24-Apr-2018 21:45:06
[2018-04-24 23:10] VITALS: BP 101/70
== END 2018-04-24 23:32 | disposition home or self-care (01) ==
LOC: ER 16:03
DX: K50.00 Crohn's disease of small intestine without complications (principal); D72.829 Elevated white blood cell count, unspecified; J45.21 Mild intermittent asthma with (acute) exacerbation; J44.9 Chronic obstructive pulmonary disease, unspecified; R07.9 Chest pain, unspecified; I73.9 Peripheral vascular disease, unspecified; R00.2 Palpitations; R10.9 Unspecified abdominal pain; R05 Cough; R06.02 Shortness of breath; E10.9 Type 1 diabetes mellitus without complications; Z79.899 Other long term (current) drug therapy; F17.210 Nicotine dependence, cigarettes, uncomplicated; I10 Essential (primary) hypertension
CPT/HCPCS: 93005; 99406; 94640 ×2; 99285; 96374; 96375; 36415; 82553; 82550; 85025; 80053; 84484; 71045; 71275; 74174; 93010; J2930; J1170; J2060; A9270 ×2; J7620

== ENCOUNTER 2018-05-10 08:40 | Emergency (ER) | payer MEDICARE, MEDICAID ==
--- NOTE | 2018-05-10 09:17 | ER Document Report ---
ED Extremity Problem, Upper - General Chief Complaint: Arm Pain Stated Complaint: LEFT ARM PAIN Time Seen by Provider: 05/10/18 09:02 Primary Care Provider: [facility] [Provider Group] - Follow up as needed WAI TIRADO DO [Primary Care Provider] - Follow up as needed Mode of Arrival: Ambulatory Information source: Patient Notes: 62-year-old female presents to ED for complaint of left shoulder pain. She states that she woke up on Tuesday with severe pain in her left shoulder and upper arm. States she then walked the dog on Tuesday and the dog jerked her and the pain was much worse. She states the pain continued to get worse on Tuesday and Tuesday and now the pain is such that it is painful to move her arm. She states she is concerned that she may have a DVT because she has had a DVT in the past that caused her to lose her leg. She is on blood thinners for her previous DVTs. Patient is alert oriented respirations regular unlabored speaking in full sentences denies any chest pain at any time or any shortness of breath at this time. TRAVEL OUTSIDE OF THE [place] IN LAST 30 DAYS: No - HPI Patient complains to provider of: Left, Arm, Shoulder Onset: Last week Recent injury: Possibly Where: Home, Indoors Quality of pain: Sharp, Throbbing Severity of pain: Severe Pain Level: 5 Exacerbated by: Movement, Exertion Relieved by: Rest, Positioning Similar symptoms previously: Yes Recently seen / treated by doctor: No - Related Data Allergies/Adverse Reactions: Sulfa (Sulfonamide Antibiotics) Allergy (Verified 05/10/18 08:43) Past Medical History - General Information source: Patient - Social History Smoking Status: Current Every Day Smoker Cigarette use (# per day): Yes - ppd Chew tobacco use (# tins/day): No Smoking Education Provided: Yes - 4 min Frequency of alcohol use: None Drug Abuse: None Lives with: Family Family History: None Patient has suicidal ideation: No Patient has homicidal ideation: No - Past Medical History Cardiac Medical History: Reports: Hx DVT, Hx Hypertension, Hx Peripheral Vascular Disease Pulmonary Medical History: Reports: Hx Asthma, Hx Sleep Apnea - Has not worn CPAP for some time now. EENT Medical History: Reports: None Neurological Medical History: Reports: Hx Migraine Endocrine Medical History: Reports: Hx Diabetes Mellitus Type 2 Renal/ Medical History: Reports: None Malignancy Medical History: Reports: None GI Medical History: Reports: Hx Crohn's Disease, Hx Gastroesophageal Reflux Disease, Hx Colonoscopy, Hx Endoscopy Musculoskeletal Medical History: Reports Hx Arthritis, Reports Hx Musculoskeletal Deformity, Reports Hx Musculoskeletal Trauma Skin Medical History: Reports None Psychiatric Medical History: Reports: Hx Depression, Hx Post Traumatic Stress Disorder Traumatic Medical History: Reports: None Infectious Medical History: Reports: None Past Surgical History: Reports: Hx Adenoidectomy, Hx Section, Hx Myringotomy, Hx Orthopedic Surgery - left eye socket, R shoulder; L BKA, Hx Tonsillectomy. Denies: Hx Hysterectomy - Immunizations Immunizations up to date: Yes Hx Diphtheria, Pertussis, Tetanus Vaccination: Yes Review of Systems - Review of Systems Constitutional: No symptoms reported EENT: No symptoms reported Cardiovascular: No symptoms reported Respiratory: No symptoms reported Gastrointestinal: No symptoms reported Genitourinary: No symptoms reported Female Genitourinary: No symptoms reported Musculoskeletal: Joint pain - left shoulder and upper arm Skin: No symptoms reported Hematologic/Lymphatic: No symptoms reported Neurological/Psychological: No symptoms reported -: Yes All other systems reviewed and negative Physical Exam - Vital signs Vitals: Temp Pulse Resp BP Pulse Ox 98.3 F 85 16 132/86 H 97 05/10/18 08:46 05/10/18 08:46 05/10/18 08:46 05/10/18 08:46 05/10/18 08:46 Interpretation: Normal - General General appearance: Appears well, Alert - HEENT Head: Normocephalic, Atraumatic Eyes: Normal Pupils: PERRL - Respiratory Respiratory status: No respiratory distress Chest status: Nontender Breath sounds: Normal Chest palpation: Normal - Cardiovascular Rhythm: Regular Heart sounds: Normal auscultation Murmur: No - Abdominal Inspection: Normal Distension: No distension Bowel sounds: Normal Tenderness: Nontender Organomegaly: No organomegaly - Back Back: Normal, Nontender - Extremities General upper extremity: Normal color, Normal temperature General lower extremity: Normal inspection, Nontender, Normal color, Normal ROM, Normal temperature, Normal weight bearing. No: Kika's sign Shoulder: Tender, Limited ROM - due to pain. No: Abrasion, Deformity, Dislocation, Ecchymosis, Instability, Laceration Arm: Tender. No: Abrasion, Deformity, Ecchymosis, Instability, Laceration - Neurological Neuro grossly intact: Yes Cognition: Normal Orientation: AAOx4 Jose Alberto Coma Scale Eye Opening: Spontaneous [place] Coma Scale Verbal: Oriented [place] Coma Scale Motor: Obeys Commands Jose Alberto Coma Scale Total: 15 Speech: Normal Motor strength normal: LUE, RUE, LLE, RLE Sensory: Normal - Psychological Associated symptoms: Normal affect, Normal mood - Skin Skin Temperature: Warm Skin Moisture: Dry Skin Color: Normal Course - Re-evaluation Re-evalutation: 05/10/18 12:19 X-ray and Doppler results discussed with patient and written report of x-ray and Doppler given to patient for follow-up with her primary care and orthopedics. Patient was discharged home. Patient verbalized understanding and agreement with treatment plan. - Vital Signs Vital signs: Temp Pulse Resp BP Pulse Ox 98.3 F 70 16 121/81 100 05/10/18 11:39 05/10/18 11:39 05/10/18 11:39 05/10/18 11:39 05/10/18 11:39 - Diagnostic Test Radiology reviewed: Image reviewed, Reports reviewed Discharge - Discharge Clinical Impression: Arthritis of left shoulder region Left shoulder pain Qualifiers: Chronicity: acute Qualified Code(s): M25.512 - Pain in left shoulder Condition: Stable Disposition: HOME, SELF-CARE Additional Instructions: Arthritis Your symptoms are due to arthritis. Arthritis is an inflammation of the joints. There are many types -- osteoarthritis (due to "wear and tear"), auto- immmune arthritis (such as rheumatoid, lupus, Darling's, and others), and crystal-induced arthritis (such as gout and pseudogout). The physician's examination, combined with laboratory tests, will determine the cause of your arthritis. All types of arthritis are treated with antiinflammatory medications. Other medication may be required for special types of arthritis, or if your problem does not respond to the antiinflammatory medicine. Local warmth may be helpful. Move the involved joints through the full range of motion daily. Mild exercise is usually still possible for most persons with arthritis (ask your physician). Swimming provides good exercise without damaging the joints. Contact the physician if you are worsening in any way. STEROID MEDICATION: You have been given an injection of medicine of the cortisone/steroid class. This medication is used to control inflammation or allergy. It is often continued as a pill for a short period of time, until the acute process subsides. There are usually no side effects from short-term use of cortisone-like medications. Some persons feel an increased sense of well-being and are not sleepy at bedtime. Long-term use of cortisone medications is best avoided, unless required for a severe condition. If your condition does not remit, or relapses after the course of corticosteroid medication, you should consult your physician. We have put a Lidoderm patch on your shoulder at this time. I am not sure what your insurance cover I will write you a prescription for the Lidoderm but if your insurance does not cover try using the [id number] Lidoderm patches. FOLLOW-UP CARE: If you have been referred to a physician for follow-up care, call the physicians office for an appointment as you were instructed or within the next two days. If you experience worsening or a significant change in your symptoms, notify the physician immediately or return to the Emergency Department at any time for re-evaluation. Prescriptions: Lidocaine [Lidoderm 5% (700 mg) Transdermal Patch] 1 patch TP DAILY #30 adh..patch Referrals: WAI TIRADO DO [Primary Care Provider] - Follow up as needed [facility] [Provider [facility]] - Follow up as needed
--- NOTE | 2018-05-10 10:15 | RADIOLOGY REPORT (SQ) ---
EXAM DESCRIPTION: SHOULDER LEFT 2 OR MORE VIEWS COMPLETED DATE/TIME: 05/10/2018 9:59 am REASON FOR STUDY: Left shoulder and humerus pain COMPARISON: 04/24/2018 NUMBER OF VIEWS: Three views. TECHNIQUE: Internal rotation, external rotation, and Y view images acquired of the left shoulder. LIMITATIONS: None. FINDINGS: MINERALIZATION: Osteopenia. BONES: No acute fracture or dislocation. No worrisome bone lesions. JOINTS: No dislocation. Minimal osteophytosis at the acromioclavicular and glenohumeral joint. Join t space is well-maintained. VISUALIZED LUNGS AND RIBS: No pneumothorax. No rib fracture. SOFT TISSUES: No radiopaque foreign body. OTHER: Dextroconvex curvature of the thoracic spine. IMPRESSION: No evidence of acute bony abnormality. Minimal acromioclavicular and glenohumeral osteoarthropathy. TECHNICAL DOCUMENTATION: JOB ID: [id number] [employer]- All Rights Reserved Reading location - IP/workstation name: [email or web address]
[2018-05-10] MEDS ORDERED: DEXAMETHASONE SOD PHOS INJ 10 MG/1 ML VIAL IM ONE (11:24)
[2018-05-10] MEDS ORDERED: LIDOCAINE 5% (700 MG) TRANSDERMAL ADH..PATCH TP ONE (11:24)
[2018-05-10 11:40] VITALS: BP 121/81
--- NOTE | 2018-05-10 11:48 | RADIOLOGY REPORT (SQ) ---
EXAM DESCRIPTION: VENOUS UNILATERAL UPPER COMPLETED DATE/TIME: 05/10/2018 11:31 am REASON FOR STUDY: pain left arm no injury hx dvt COMPARISON: None. TECHNIQUE: Dynamic and static montero scale and color images acquired of the left arm venous system. Se lected spectral images acquired with additional compression and augmentation maneuvers. The contralat eral subclavian vein and internal jugular vein were also imaged. Images stored on PACS. LIMITATIONS: None. FINDINGS: INTERNAL JUGULAR VEIN: Normal phasicity, compression, augmentation. No visualized echogeni c material on montero scale. No defects on color images. Comparison opposite side normal. SUBCLAVIAN VEIN: Normal compression, augmentation. No visualized echogenic material on montero scale. No defects on color images. AXILLARY VEIN: Normal compression, augmentation. No visualized echogenic material on montero scale. No d efects on color images. BRACHIAL VEIN: Normal compression, augmentation. No visualized echogenic material on montero scale. No d efects on color images. BASILIC VEIN: Normal compression, augmentation. No visualized echogenic material on montero scale. No de fects on color images. CEPHALIC VEIN: Normal compression, augmentation. No visualized echogenic material on montero scale. No d efects on color images. OTHER: No other significant finding. CONTRALATERAL SUBCLAVIAN VEIN AND INTERNAL JUGULAR VEIN: Normal phasicity, compression and augmentation. No visualized echogenic material on montero scale. No de fects on color images. IMPRESSION: NO EVIDENCE DVT OR SVT IN THE LEFT ARM. TECHNICAL DOCUMENTATION: JOB ID: [id number] [employer] All Rights Reserved Reading location - IP/workstation name: [email or web address]
--- NOTE | 2018-05-10 23:20 | EKG REPORT ---
SEVERITY:- ABNORMAL ECG - SINUS RHYTHM CONSIDER LEFT VENTRICULAR HYPERTROPHY : Confirmed by: Jhon Ledezma 10-May-2018 23:19:35
== END 2018-05-10 12:15 | disposition home or self-care (01) ==
LOC: ER 08:40
DX: M19.012 Primary osteoarthritis, left shoulder (principal); M25.512 Pain in left shoulder; M79.622 Pain in left upper arm; E11.51 Type 2 diabetes mellitus with diabetic peripheral angiopathy without gangrene; I10 Essential (primary) hypertension; J45.909 Unspecified asthma, uncomplicated; F17.210 Nicotine dependence, cigarettes, uncomplicated; Z71.6 Tobacco abuse counseling; Z86.718 Personal history of other venous thrombosis and embolism; Z79.01 Long term (current) use of anticoagulants; Z89.512 Acquired absence of left leg below knee; Z88.2 Allergy status to sulfonamides
CPT/HCPCS: 93005; 99406; 99284; 96372; 93971; 73030; 93010; J1100

== ENCOUNTER 2018-07-10 08:44 | Emergency (ER) | payer MEDICARE, MEDICAID ==
--- NOTE | 2018-07-10 10:08 | ER Document Report ---
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 Patient states it has been persistent for days and days and days and she said that "I am at my wits end". Patient states she wants a d-dimer. 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 She said it is worse when she wears her prosthetic. She denies any edema, redness, or warmth of her left leg. She also has some nausea. She did not check her blood sugar this morning. She denies any fevers, chills, vomiting, diarrhea, does have some abdominal pain she states secondary to her Crohn's because she is on a new medication, denies any urinary symptoms. TRAVEL OUTSIDE OF THE [place] IN LAST 30 DAYS: No - Related Data Allergies/Adverse Reactions: Sulfa (Sulfonamide Antibiotics) Allergy (Verified 05/10/18 08:43) Past Medical History - Social History Smoking Status: Current Every Day Smoker Chew tobacco use (# tins/day): No Frequency of alcohol use: Occasional Drug Abuse: None Family History: None Patient has suicidal ideation: No Patient has homicidal ideation: No - Past Medical History Cardiac Medical History: Reports: Hx DVT, Hx Hypertension, Hx Peripheral Vascular Disease Denies: Hx Atrial Fibrillation, Hx Congestive Heart Failure, Hx Hypercholesterolemia, Hx Pulmonary Embolism Pulmonary Medical History: Reports: Hx Asthma, Hx Sleep Apnea - Has not worn CPAP for some time now. Denies: Hx COPD Neurological Medical History: Reports: Hx Migraine. Denies: Hx Seizures Endocrine Medical History: Reports: Hx Diabetes Mellitus Type 1, Hx Diabetes Mellitus Type 2. Denies: Hx Hyperthyroidism, Hx Hypothyroidism Renal/ Medical History: Denies: Hx Peritoneal Dialysis GI Medical History: Reports: Hx Crohn's Disease, Hx Gastroesophageal Reflux Disease, Hx Colonoscopy, Hx Endoscopy. Denies: Hx Cirrhosis, Hx Hepatitis Musculoskeletal Medical History: Reports Hx Arthritis, Reports Hx Musculoskeletal Deformity, Reports Hx Musculoskeletal Trauma Psychiatric Medical History: Reports: Hx Depression, Hx Post Traumatic Stress Disorder Infectious Medical History: Denies: Hx Hepatitis Past Surgical History: Reports: Hx Adenoidectomy, Hx Section, Hx Myringotomy, Hx Orthopedic Surgery - left eye socket, R shoulder; L BKA, Hx Tonsillectomy. Denies: Hx Hysterectomy - Immunizations Immunizations up to date: Yes Hx Diphtheria, Pertussis, Tetanus Vaccination: Yes Review of Systems - Review of Systems Constitutional: See HPI EENT: No symptoms reported Cardiovascular: See HPI Respiratory: See HPI Gastrointestinal: See HPI Genitourinary: See HPI Female Genitourinary: No symptoms reported Musculoskeletal: See HPI Skin: No symptoms reported Hematologic/Lymphatic: No symptoms reported Neurological/Psychological: See HPI Physical Exam - Vital signs Vitals: Temp Pulse Resp BP Pulse Ox 98.6 F 94 16 112/68 96 07/10/18 08:53 07/10/18 08:53 07/10/18 08:53 07/10/18 08:53 07/10/18 08:53 - Notes Notes: PHYSICAL EXAMINATION: Reviewed vital signs and charting by RN GENERAL: Well-appearing, well-nourished and in no acute distress. HEAD: Atraumatic, normocephalic. No scalp deformity, depression, or crepitance. EYES: Pupils are 3 mm and equal/round, extraocular movements intact, sclera anicteric, conjunctiva are normal. LUNGS: Breath sounds present, equal, and clear to auscultation bilaterally. No wheezes, rales, or rhonchi. HEART: Regular rate and rhythm without murmurs, rubs, or gallops. 2+ peripheral pulses. Normal capillary refill. ABDOMEN: Soft, right sided tenderness, nondistended. Normoactive bowel sounds. No guarding, no rebound. No masses appreciated. BACK: Normal contour, no midline tenderness. Rectal exam deferred. PELVC: Deferred. EXTREMITIES: Normal range of motion, no pitting or edema. No cyanosis. Left stump does not appear infected, there is a small dressing over the small pressure ulcer. SKIN: Warm, dry, normal turgor, no rashes or lesions noted. Course - Re-evaluation Re-evalutation: 07/10/18 10:14 Overall well-appearing. Patient with acute pain. She is concerned she has a DVT because that was the cause of the amputation in 2017. I have a high suspicion for diabetic neuropathy at this time because when I palpated her right leg she had tenderness to palpation. Regardless, I will get a venous Doppler of the left leg to rule out DVT. 07/10/18 12:27 Got a verbal from the head worker that patient has a left popliteal DVT. I spoke with Dr. Moore, rn plastic surgery on-call, who states that patient should be started on Lovenox. Patient is on Arixtra due to previous GI bleed from being on Xarelto after seeing Dr. Daley. I clarified with Dr. Moore and she still wants the patient to start Lovenox 1 mg/kg twice daily. Pending labs I will initiate treatment and discharge with strict follow-up precautions with Dr. Daley. - Vital Signs Vital signs: Temp Pulse Resp BP Pulse Ox 97.3 F 94 14 110/76 95 07/10/18 09:18 07/10/18 08:53 07/10/18 12:20 07/10/18 12:20 07/10/18 12:20 - Laboratory Result Diagrams: 07/10/18 10:45 07/10/18 10:45 Laboratory results interpreted by me: 07/10/18 07/10/18 10:45 10:45 WBC 15.0 H Hgb 9.9 L Hct 31.7 L MCV 77 L MCH 24.1 L MCHC 31.2 L RDW 18.4 H Plt Count 538 H Seg Neuts % (Manual) 90 H Band Neutrophils % 1 L Lymphocytes % (Manual) 7 L Monocytes % (Manual) 2 L Abs Neuts (Manual) 13.7 H Total Protein 6.2 L Discharge - Discharge Clinical Impression: Popliteal DVT (deep venous thrombosis) Qualifiers: Chronicity: unspecified Laterality: left Qualified Code(s): I82.432 - Acute embolism and thrombosis of left popliteal vein Condition: Good Disposition: HOME, SELF-CARE Additional Instructions: You have been diagnosed with a clot in your extremity. You have been started on a blood thinner called Lovenox. You need to take 60 mg twice daily shots. I have given you a 30-day supply but it is critically important that you follow-up with Dr. Daley to manage this clot. This is only a temporary bridge based on what the rn plastic surgery's recommendation was here in the emergency department again, you must call Dr. Daley this week to arrange follow-up. Please return to emergency department if you notice worsening pain to the affected area, you began having rectal bleeding, hit your head, develop shortness of breath or chest pain, or have any other symptoms that are concerning to you. Prescriptions: RX: Enoxaparin Sodium 60 mg SQ Q12H 30 Days #60 syringe Oxycodone HCl/Acetaminophen [Percocet 5-325 mg Tablet] 1 tab PO Q4H PRN #10 tablet PRN Reason: Referrals: WAI TIRADO DO [Primary Care Provider] - Follow up as needed
--- NOTE | 2018-07-10 12:35 | RADIOLOGY REPORT (SQ) ---
EXAM DESCRIPTION: VENOUS UNILATERAL LOWER COMPLETED DATE/TIME: 07/10/2018 12:25 pm REASON FOR STUDY: Left thigh and calf pain, tightness COMPARISON: 06/14/2016 TECHNIQUE: Dynamic and static montero scale and color images acquired of the left leg venous system. Se lected spectral images acquired with additional compression and augmentation maneuvers. The contralat eral common femoral vein and saphenofemoral junction were also imaged. Images stored on PACS. LIMITATIONS: None. FINDINGS: COMMON FEMORAL: Normal phasicity, compression and augmentation. No visualized echogenic ma terial on montero scale. No defects on color images. FEMORAL: Normal compression and augmentation. No visualized echogenic material on montero scale. No defe cts on color images. POPLITEAL: Subacute nonocclusive DVT in the popliteal vein. CALF VESSELS: BKA. GSV and SSV: Normal compression, augmentation. No visualized echogenic material on montero scale. No def ects on color images. ANY DEEP VENOUS INSUFFICIENCY: Not evaluated. ANY EVIDENCE OF POPLITEAL CYST: No. OTHER: No other significant finding. CONTRALATERAL COMMON FEMORAL VEIN AND SAPHENOFEMORAL JUNCTION: Normal phasicity, compression and augmentation. No visualized echogenic material on montero scale. No de fects on color images. IMPRESSION: Subacute nonocclusive DVT in the left popliteal vein. TECHNICAL DOCUMENTATION: JOB ID: [id number] [employer]- All Rights Reserved Reading location - IP/workstation name: [email or web address]
[2018-07-10 12:40] LABS: ALANINE AMINOTRANSFERASE 23 U/L (9-52); ALBUMIN 3.5 g/dL (3.5-5.0); ALKALINE PHOSPHATASE 108 U/L (38-126); ANION GAP 11 (5-19); ASPARTATE AMINO TRANSFERASE 18 U/L (14-36); BILIRUBIN,DIRECT 0.2 mg/dL (0.0-0.4); BILIRUBIN,TOTAL 0.2 mg/dL (0.2-1.3); BLOOD UREA NITROGEN 20 mg/dL (7-20); CALCIUM 10.1 mg/dL (8.4-10.2); CARBON DIOXIDE 24 mmol/L (22-30); CHLORIDE 106 mmol/L (98-107); GLUCOSE 108 mg/dL (75-110); POTASSIUM 4.8 mmol/L (3.6-5.0); SODIUM 141.2 mmol/L (137-145); TOTAL PROTEIN 6.2 g/dL (6.3-8.2)
[2018-07-10 12:48] VITALS: BP 110/76
[2018-07-10] MEDS ORDERED: FENTANYL CITRATE INJ/PF 100 MCG/2 ML AMPUL IV ONE (12:58)
[2018-07-10 13:04] LABS: HEMATOCRIT 31.7 % (36.0-47.0); HEMOGLOBIN 9.9 g/dL (12.0-15.5); MEAN CORPUSCULAR HEMOGLOBIN 24.1 pg (27.0-33.4); MEAN CORPUSCULAR HGB CONC 31.2 g/dL (32.0-36.0); MEAN CORPUSCULAR VOLUME 77 fl (80-97); PLATELET COUNT 538 10^3/uL (150-450); RED CELL DISTRIBUTION WIDTH 18.4 % (11.5-14.0)
[2018-07-10 13:06] LABS: ABSOLUTE LYMPHOCYTES# (MANUAL) 1.1 10^3/uL (0.5-4.7); ABSOLUTE MONOCYTES # (MANUAL) 0.3 10^3/uL (0.1-1.4); ABSOLUTE NEUTROPHILS# (MANUAL) 13.7 10^3/uL (1.7-8.2); BAND NEUTROPHILS % (MANUAL) 1 % (3-5); BASOPHILS % (MANUAL) 0 % (0-2); EOSINOPHILS % (MANUAL) 0 % (0-6); LYMPHOCYTES % (MANUAL) 7 % (13-45); MONOCYTES % (MANUAL) 2 % (3-13); SEGMENTED NEUTROPHILS % (MAN) 90 % (42-78); TOTAL CELLS COUNTED 100
[2018-07-10 13:07] LABS: ANISOCYTOSIS 2+; PLATELET COMMENT INCREASED; TEAR DROP CELLS SLIGHT; TOXIC GRANULATION 1+; TOXIC VACUOLATION PRESENT
[2018-07-10] MEDS ORDERED: ENOXAPARIN SODIUM INJ 60 MG/0.6 ML DISP.SYRIN SUBCUT ONE (13:29)
== END 2018-07-10 13:57 | disposition home or self-care (01) ==
LOC: ER 08:44
DX: I82.432 Acute embolism and thrombosis of left popliteal vein (principal); M79.605 Pain in left leg; R11.0 Nausea; E11.9 Type 2 diabetes mellitus without complications; Z79.4 Long term (current) use of insulin; J45.909 Unspecified asthma, uncomplicated; Z89.512 Acquired absence of left leg below knee; F17.200 Nicotine dependence, unspecified, uncomplicated
CPT/HCPCS: 99284; 96372; 96374; 36415; 85025; 80053; 93971; J3010; J1650

== ENCOUNTER → 2018-08-10 | Outpatient (CLI) | payer MEDICARE, MEDICAID ==
--- NOTE | 2018-08-10 16:20 | XCELERA REPORT ---
[address] [facility] [address] Lower Extremity Venous Evaluation Procedure: Color flow and duplex imaging of the veins of the left lower extremity as well as the right Common Femoral vein. Right Sided Venous Evaluation The right common femoral vein is fully compressible. Spontaneous and phasic flow is present in the right common femoral vein. Left Sided Venous Evaluation Normal vessel filling wall to wall, compression and augmentation as well as Colour flow down to the Popliteal vein, ( BKA). Interpretation Summary No duplex evidence of DVT or obstruction in the left lower extremity nor in the right Common Femoral vein. Name: RAI VOGT Age: 63 yrs Gender: Female : 1955 Patient Status: Outpatient Patient Location: Study Date: 08/10/2018 01:49 PM Reason For Study: LLE SWELLING Ordering Physician: MALLIKA MOORE Performed By: Chris Wise : MALLIKA MOORE > Frederick Pacheco
--- NOTE | 2018-08-13 15:16 | XCELERA REPORT ---
[address] [address] Lower Extremity Arterial Evaluation Name: RAI VOGT Age: 63 yrs Gender: Female : 1955 Patient Status: Outpatient Patient Location: SP Study Date: 08/10/2018 01:26 PM Procedure: A color flow and duplex scan of the lower extremity arteries was performed bilaterally with velocity and waveform anaylsis. VÍCTOR on right side only. Reason For Study: LT CALF ULCER Ordering Physician: MIKE DAVIS Performed By: Chris Wise Measurements and Calculations Right Left LOBBY CONCIERGE PSV 102.5 56.9 cm/sec Prox PFA PSV -105.0 -68.4 cm/sec Prox SFA PSV 85.0 3.5 cm/sec Mid SFA PSV -71.6 cm/sec Dist SFA PSV -55.2 cm/sec Prox Pop A PSV 62.1 cm/sec Dist AL PSV 82.1 cm/sec Dist SHARPLES MACHINE OPERATOR PSV 90.0 cm/sec Johan Pedis PSV 51.3 cm/sec Right Side Arterial Evaluation Normal velocity and triphasic waveforms noted from the Common Femoral artery to the infrageniculate vessels . Biphasic with normal velocity in the Dorsalis Pedis arteries. Ankle Brachial index 1.16. Left Side Arterial Evaluation Normal velocity and triphasic waveforms noted in the Common Femoral and Deep Femoral. No flow in the Femoral or Popliteal arteries. Ankle Brachial index not obtained due to amputation. Interpretation Summary No hemodynamically significant lesions in the right lower extremity only, on duplex imaging, at rest. 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 Deep Femoral is normal, probably the only source of distal flow, by collaterals. : MIKE DAVIS > Mike Davis
== END ==
LOC: SP 13:06
PROVIDERS: ATTEND Internal Medicine
DX: I82.432 Acute embolism and thrombosis of left popliteal vein (principal); L97.222 Non-pressure chronic ulcer of left calf with fat layer exposed
CPT/HCPCS: 93922; 93925; 93971

== ENCOUNTER → 2018-08-14 | Outpatient (CLI) | payer MEDICARE, MEDICAID ==
[2018-08-14 14:35] LABS: ABSOLUTE EOSINOPHILS # (AUTO) 0.1 10^3/uL (0.0-0.6); ABSOLUTE MONOCYTES (AUTO) 0.3 10^3/uL (0.1-1.4); BASOPHILS % (AUTO) 0.3 % (0-2); EOSINOPHILS % (AUTO) 0.5 % (0-6); HEMATOCRIT 32.3 % (36.0-47.0); HEMOGLOBIN 10.2 g/dL (12.0-15.5); LYMPHOCYTES % (AUTO) 6.6 % (13-45); MEAN CORPUSCULAR HEMOGLOBIN 23.8 pg (27.0-33.4); MEAN CORPUSCULAR HGB CONC 31.4 g/dL (32.0-36.0); MEAN CORPUSCULAR VOLUME 76 fl (80-97); MONOCYTES % (AUTO) 2.1 % (3-13); PLATELET COUNT 421 10^3/uL (150-450); RED BLOOD COUNT 4.28 10^6/uL (3.72-5.28); RED CELL DISTRIBUTION WIDTH 19.1 % (11.5-14.0); SEGMENTED NEUTROPHILS % (AUTO) 90.5 % (42-78); TOTAL CELLS COUNTED % (AUTO) 100 %; WHITE BLOOD COUNT 15.5 10^3/uL (4.0-10.5)
[2018-08-14 14:56] LABS: ALANINE AMINOTRANSFERASE 35 U/L (9-52); ALBUMIN 4.2 g/dL (3.5-5.0); ALKALINE PHOSPHATASE 92 U/L (38-126); ANION GAP 10 (5-19); ASPARTATE AMINO TRANSFERASE 20 U/L (14-36); BILIRUBIN,DIRECT 0.3 mg/dL (0.0-0.4); BILIRUBIN,TOTAL 0.3 mg/dL (0.2-1.3); BLOOD UREA NITROGEN 22 mg/dL (7-20); C-REACTIVE PROTEIN 6.7 mg/L (<10.0); CALCIUM 10.2 mg/dL (8.4-10.2); CARBON DIOXIDE 26 mmol/L (22-30); CHLORIDE 105 mmol/L (98-107); GLUCOSE 102 mg/dL (75-110); POTASSIUM 4.1 mmol/L (3.6-5.0); SODIUM 141.3 mmol/L (137-145); TOTAL PROTEIN 6.9 g/dL (6.3-8.2)
[2018-08-14 15:20] LABS: ERYTHROCYTE SEDIMENTATION RATE 36 mm/hr (0-30)
== END ==
LOC: LAB 13:41
PROVIDERS: ATTEND Surgery
DX: E11.621 Type 2 diabetes mellitus with foot ulcer (principal); L97.222 Non-pressure chronic ulcer of left calf with fat layer exposed
CPT/HCPCS: 36415; 80053; 83036; 85025; 85652; 86140

== ENCOUNTER 2018-10-14 13:11 | Emergency (ER) | payer MEDICARE, MEDICAID ==
--- NOTE | 2018-10-14 13:44 | ER Document Report ---
ED Medical Screen (RME) - General Chief Complaint: Headache Stated Complaint: HEADACHE Time Seen by Provider: 10/14/18 13:38 Primary Care Provider: MIKE DAVIS MD [Primary Care Provider] - Follow up as needed Mode of Arrival: Wheelchair Information source: Patient Notes: 63-year-old female with complaint of severe horrific pain in her left leg. She states she cannot wear her prostheses more than 10 minutes due to the pain. She lost her leg due to a DVT and arthrosclerosis to the leg. She said she is also having the worst migraine she is ever had in her life. She states this is causing her to vomit be very sensitive to light. She states she is also having discomfort in her chest and very short of breath and feels like she might have a pulmonary emboli. She states she came to the emergency room because she was extremely anxious. She did have any okay my RME I have greeted and performed a rapid initial assessment of this patient. A comprehensive ED assessment and evaluation of the patient, analysis of test results and completion of medical decision making process will be conducted by an additional ED providers. TRAVEL OUTSIDE OF THE [place] IN LAST 30 DAYS: No - Related Data Allergies/Adverse Reactions: Sulfa (Sulfonamide Antibiotics) Allergy (Verified 10/14/18 13:12) Past Medical History - Social History Chew tobacco use (# tins/day): No Frequency of alcohol use: None Drug Abuse: None - Past Medical History Cardiac Medical History: Reports: Hx DVT, Hx Hypertension, Hx Peripheral Vascular Disease Denies: Hx Atrial Fibrillation, Hx Congestive Heart Failure, Hx Hypercholesterolemia, Hx Pulmonary Embolism Pulmonary Medical History: Reports: Hx Asthma, Hx Sleep Apnea - Has not worn CPAP for some time now. Denies: Hx COPD Neurological Medical History: Reports: Hx Migraine. Denies: Hx Seizures Endocrine Medical History: Reports: Hx Diabetes Mellitus Type 1, Hx Diabetes Mellitus Type 2. Denies: Hx Hyperthyroidism, Hx Hypothyroidism Renal/ Medical History: Denies: Hx Peritoneal Dialysis GI Medical History: Reports: Hx Crohn's Disease, Hx Gastroesophageal Reflux Disease, Hx Colonoscopy, Hx Endoscopy. Denies: Hx Cirrhosis, Hx Hepatitis Musculoskeltal Medical History: Reports Hx Arthritis, Reports Hx Musculoskeletal Deformity, Reports Hx Musculoskeletal Trauma Psychiatric Medical History: Reports: Hx Depression, Hx Post Traumatic Stress Disorder Infectious Medical History: Denies: Hx Hepatitis Past Surgical History: Reports: Hx Adenoidectomy, Hx Section, Hx Myringotomy, Hx Orthopedic Surgery - left eye socket, R shoulder; L BKA, Hx Tonsillectomy. Denies: Hx Hysterectomy - Immunizations Immunizations up to date: Yes Hx Diphtheria, Pertussis, Tetanus Vaccination: Yes Physical Exam - Vital signs Vitals: Temp Pulse Resp BP Pulse Ox 98.2 F 86 18 149/94 H 96 10/14/18 13:22 10/14/18 13:22 10/14/18 13:22 10/14/18 13:22 10/14/18 13:22 Course - Vital Signs Vital signs: Temp Pulse Resp BP Pulse Ox 98.2 F 86 18 149/94 H 96 10/14/18 13:22 10/14/18 13:22 10/14/18 13:22 10/14/18 13:22 10/14/18 13:22 Doctor's Discharge - Discharge Referrals: MIKE DAVIS MD [Primary Care Provider] - Follow up as needed
[2018-10-14] MEDS ORDERED: METOCLOPRAMIDE HCL INJ/PF 10 MG/2 ML SDV IV ONE (14:31)
[2018-10-14] MEDS ORDERED: MAGNESIUM SULFATE/D5W 1 GM/100 ML RTUPB IV ONE (14:31)
[2018-10-14] MEDS ORDERED: NORMAL SALINE 1000 ML 1,000 ML IV ONE (14:31)
[2018-10-14 14:32] LABS: ABSOLUTE BASOPHILS # (AUTO) 0.1 10^3/uL (0.0-0.2); ABSOLUTE EOSINOPHILS # (AUTO) 0.1 10^3/uL (0.0-0.6); ABSOLUTE LYMPHOCYTES (AUTO) 1.5 10^3/uL (0.5-4.7); ABSOLUTE MONOCYTES (AUTO) 0.5 10^3/uL (0.1-1.4); ABSOLUTE NEUT (AUTO) 4.9 10^3/uL (1.7-8.2); BASOPHILS % (AUTO) 0.8 % (0-2); EOSINOPHILS % (AUTO) 1.6 % (0-6); HEMATOCRIT 32.9 % (36.0-47.0); HEMOGLOBIN 10.8 g/dL (12.0-15.5); LYMPHOCYTES % (AUTO) 21.2 % (13-45); MEAN CORPUSCULAR HEMOGLOBIN 25.2 pg (27.0-33.4); MEAN CORPUSCULAR HGB CONC 32.8 g/dL (32.0-36.0); MEAN CORPUSCULAR VOLUME 77 fl (80-97); MONOCYTES % (AUTO) 6.5 % (3-13); PLATELET COUNT 371 10^3/uL (150-450); RED BLOOD COUNT 4.28 10^6/uL (3.72-5.28); RED CELL DISTRIBUTION WIDTH 19.2 % (11.5-14.0); SEGMENTED NEUTROPHILS % (AUTO) 69.9 % (42-78); TOTAL CELLS COUNTED % (AUTO) 100 %
[2018-10-14] MEDS ORDERED: DEXAMETHASONE SOD PHOSPHATE INJ 4 MG/1 ML VIAL IV ONE (14:32)
--- NOTE | 2018-10-14 14:33 | ER Document Report ---
ED General - General Chief Complaint: Headache Stated Complaint: HEADACHE Time Seen by Provider: 10/14/18 13:38 Primary Care Provider: WAI TIRADO DO [Primary Care Provider] - Follow up in 3-5 days Mode of Arrival: Wheelchair Notes: Patient is a 63-year-old female with multiple medical problems including diabetes mellitus, migraines, Crohn's disease and history of DVT that presents to the emergency department for chief complaint of bilateral leg pain, and headache. Patient states she is been having a migraine, with associated photophobia and nausea for a few weeks now, is been on and off, but constant in the background, she currently rates her headache as a 7 out of 10. She also is complaining of leg pain, distal to her knee, where her below the knee amputation was. She was worried she had a DVT. She is been on Lovenox, and reports not missing any doses. But she states that the pain is been constant, and she cannot tolerate to wear her artificial leg for much more than 15 minutes and then it becomes unbearable due to the pain. She is also having pain in her right thigh, she describes as an aching type pain she is worried about that as well as possibly being a DVT. She states she has been on other medications for DVT and hypercoagulability, but the other cause bleeding, or did not work for her so she was switched to Lovenox. She describes her leg pain is worse with putting pressure on it, and better with rest. Past Medical History: History of DVT, diabetes mellitus, Crohn's, migraine headaches Past Surgical History: Left below the knee amputation Social History: Admits to smoking cigarettes, denies alcohol or drug use. Family History: Reviewed and noncontributory for presenting illness Allergies: Reviewed, see documented allergy list. REVIEW OF SYSTEMS: Other than noted above, the 12 point review of systems was reviewed with the patient and were negative, all pertinent findings are included in the HPI. PHYSICAL EXAMINATION: Vital signs reviewed, nursing noted reviewed. GENERAL: Well-appearing, well-nourished and in no acute distress. HEAD: Atraumatic, normocephalic. EYES: Eyes appear normal, extraocular movements intact, sclera anicteric, conjunctiva are normal. PERRLA ENT: nares patent, oropharynx clear without exudates. Moist mucous membranes. NECK: Normal range of motion, supple without lymphadenopathy LUNGS: Breath sounds clear to auscultation bilaterally and equal. No wheezes rales or rhonchi. HEART: Regular rate and rhythm without murmurs ABDOMEN: Soft, nontender, normoactive bowel sounds. No rebound, guarding, or rigidity. No masses appreciated. EXTREMITIES: Tenderness to palpation to the thighs bilaterally, no edema noted, no varicose veins noted, or erythema. Patient otherwise is having good range of motion of the upper and lower extremities without difficulty. Cap refill less than 3 seconds in the upper extremities, and the right lower extremity. NEUROLOGICAL: No focal neurological deficits. Moves all extremities spontaneously Motor and sensory grossly intact on exam. PSYCH: Normal mood, normal affect. SKIN: Warm, Dry, normal turgor, no rashes or lesions noted on exposed skin TRAVEL OUTSIDE OF THE [place] IN LAST 30 DAYS: No - Related Data Allergies/Adverse Reactions: Sulfa (Sulfonamide Antibiotics) Allergy (Verified 10/14/18 13:12) Past Medical History - General Information source: Patient - Social History Smoking Status: Current Every Day Smoker Chew tobacco use (# tins/day): No Frequency of alcohol use: None Drug Abuse: None Family History: None Patient has suicidal ideation: No Patient has homicidal ideation: No - Past Medical History Cardiac Medical History: Reports: Hx DVT, Hx Hypertension, Hx Peripheral Vascula r Disease Denies: Hx Atrial Fibrillation, Hx Congestive Heart Failure, Hx Hypercholesterolemia, Hx Pulmonary Embolism Pulmonary Medical History: Reports: Hx Asthma, Hx Sleep Apnea - Has not worn CPAP for some time now. Denies: Hx COPD Neurological Medical History: Reports: Hx Migraine. Denies: Hx Seizures Endocrine Medical History: Reports: Hx Diabetes Mellitus Type 1, Hx Diabetes Mellitus Type 2. Denies: Hx Hyperthyroidism, Hx Hypothyroidism Renal/ Medical History: Denies: Hx Peritoneal Dialysis GI Medical History: Reports: Hx Crohn's Disease, Hx Gastroesophageal Reflux Disease, Hx Colonoscopy, Hx Endoscopy. Denies: Hx Cirrhosis, Hx Hepatitis Musculoskeletal Medical History: Reports Hx Arthritis, Reports Hx Musculoskeletal Deformity, Reports Hx Musculoskeletal Trauma Psychiatric Medical History: Reports: Hx Depression, Hx Post Traumatic Stress Disorder Infectious Medical History: Denies: Hx Hepatitis Past Surgical History: Reports: Hx Adenoidectomy, Hx Section, Hx Myringotomy, Hx Orthopedic Surgery - left eye socket, R shoulder; L BKA, Hx Ton sillectomy. Denies: Hx Hysterectomy - Immunizations Immunizations up to date: Yes Hx Diphtheria, Pertussis, Tetanus Vaccination: Yes Physical Exam - Vital signs Vitals: Temp Pulse Resp BP Pulse Ox 98.2 F 86 18 149/94 H 96 10/14/18 13:22 10/14/18 13:22 10/14/18 13:22 10/14/18 13:22 10/14/18 13:22 Course - Re-evaluation Re-evalutation: Patient seen and examined vital signs reviewed. Laboratory data and/or imaging were ordered as appropriate for the patient's presenting symptoms and complaint, with consideration of any critical or life threatening conditions that may be associated with their obtained history and exam as noted above. Patient was treated with IV fluids, antiemetics and analgesics Results were reviewed when available and demonstrated negative duplex imaging of the lower extremities, no DVT, blood work was stable, essentially unremarkable, CT of the head negative as well. The patient was re-evaluated and was improved, I talked with her at length, requiring strategies to improve her leg pain, I believe is most likely a neuropathic pain, possible RSD, versus complex regional pain syndrome, due to her amputation, that she needs to follow-up with her pain management physician, to consider other options for treatment of her chronic pain. In regards to her headache it was improved, she has a history of migraines, that seem to have been triggered more now that she is having more pain in her leg. Do not feel that she has any acute or concerning intracranial etiology of her headache at this time, she is conversant, has no focal neurological deficits, and otherwise appears well. Her CT of her chest was negative for pulmonary embolism, but demonstrate a possible bilateral atypical pneumonia, will treat this with doxycycline, patient was not hypoxic, and not presenting a septic. Evaluation was most consistent with leg pain, headache, advised follow-up with her pain management physician and her primary care. Results were discussed with the patient at this point, after careful consideration I feel that that patient can be discharged from the emergency department, the patient was educated treatments and reasons to return to the [facility] based on their presumed diagnosis as noted above, they were advised to followup with a primary care physician in 2-3 days. Patient was agreeable to plan of care. *Note is created using voice recognition software and may contain spelling, syntax or grammatical errors. Laboratory 08/24/19 08/24/19 08/24/19 14:06 14:06 14:06 WBC 7.0 RBC 4.28 Hgb 10.8 L Hct 32.9 L MCV 77 L MCH 25.2 L MCHC 32.8 RDW 19.2 H Plt Count 371 Lymph % (Auto) 21.2 Brooke % (Auto) 6.5 Eos % (Auto) 1.6 Baso % (Auto) 0.8 Absolute Neuts (auto) 4.9 Absolute Lymphs (auto) 1.5 Absolute Monos (auto) 0.5 Absolute Eos (auto) 0.1 Absolute Basos (auto) 0.1 Seg Neutrophils % 69.9 PT Cancelled INR Cancelled INR (Anticoag Therapy) Cancelled APTT Cancelled Sodium 140.5 Potassium 3.4 L Chloride 103 Carbon Dioxide 28 Anion Gap 10 BUN 13 Creatinine 0.73 Est GFR ( Amer) > 60 Est GFR (MDRD) Non-Af > 60 Glucose 103 Calcium 9.9 Total Bilirubin 0.2 Direct Bilirubin 0.2 Neonat Total Bilirubin Not Reportable Neonat Direct Bilirubin Not Reportable Neonat Indirect Bili Not Reportable AST 33 ALT 20 Alkaline Phosphatase 106 Creatine Kinase Total Protein 7.0 Albumin 4.1 10/14/18 10/14/18 14:06 16:55 WBC RBC Hgb Hct MCV MCH MCHC RDW Plt Count Lymph % (Auto) Brooke % (Auto) Eos % (Auto) Baso % (Auto) Absolute Neuts (auto) Absolute Lymphs (auto) Absolute Monos (auto) Absolute Eos (auto) Absolute Basos (auto) Seg Neutrophils % PT 13.8 INR 1.06 INR (Anticoag Therapy) APTT 35.2 Sodium Potassium Chloride Carbon Dioxide Anion Gap BUN Creatinine Est GFR ( Amer) Est GFR (MDRD) Non-Af Glucose Calcium Total Bilirubin Direct Bilirubin Neonat Total Bilirubin Neonat Direct Bilirubin Neonat Indirect Bili AST ALT Alkaline Phosphatase Creatine Kinase 41 Total Protein Albumin Chest/Abdomen CTA 10/14/18 13:39 IMPRESSION: Prominent interstitial changes in lung bases could represent interstitial scarring or infiltrate. Head CT 10/14/18 13:39 IMPRESSION: NO ACUTE INTRACRANIAL IMAGING FINDINGS. EVIDENCE OF ACUTE STROKE: NO. Venous Doppler Study 10/14/18 14:30 IMPRESSION: NO EVIDENCE FOR DVT OR SVT IN EITHER LEG. - Vital Signs Vital signs: Temp Pulse Resp BP Pulse Ox 98.6 F 86 12 147/86 H 94 10/14/18 19:25 10/14/18 13:22 10/14/18 19:25 10/14/18 19:25 10/14/18 19:25 - Laboratory Result Diagrams: 10/14/18 14:06 10/14/18 14:06 Laboratory results interpreted by me: 10/14/18 10/14/18 14:06 14:06 Hgb 10.8 L Hct 32.9 L MCV 77 L MCH 25.2 L RDW 19.2 H Potassium 3.4 L Discharge - Discharge Clinical Impression: Hypokalemia Leg pain Qualifiers: Laterality: left Qualified Code(s): M79.605 - Pain in left leg Headache Qualifiers: Headache type: unspecified Headache chronicity pattern: unspecified pattern Intractability: not intractable Qualified Code(s): R51 - Headache Pneumonia Qualifiers: Pneumonia type: due to unspecified organism Laterality: bilateral Lung location: unspecified part of lung Qualified Code(s): J18.9 - Pneumonia, unspecified organism Condition: Stable Disposition: HOME, SELF-CARE Instructions: Headache ([facility]) Additional Instructions: Please follow-up with your pain management physician, you have been prescribed medications for possible pneumonia, take these antibiotics, twice daily for the next week, you have also been prescribed medication to take if needed for headache, but be mindful that there is Tylenol in this medication, and if you are taking combination pain medications that include Tylenol, make sure not to exceed over 3000 mg of Tylenol on a daily basis. I do feel that you have neuropathic pain in your left leg, that should be addressed by your pain man agement physician, discussed with him the possibility of a spinal stimulator, and any other further testing that may be required for that. Prescriptions: Doxycycline Hyclate 100 mg PO BID #14 capsule Butalb/Acetaminophen/Caffeine [Fioricet (50-325-40 mg) Tablet] 1 tab PO Q8H PRN #12 tab PRN Reason: headache Pregabalin [Lyrica 75 mg Capsule] 75 mg PO Q12 #30 capsule Referrals: WAI TIRADO DO [Primary Care Provider] - Follow up in 3-5 days
[2018-10-14] MEDS ORDERED: PROMETHAZINE HCL INJ 25 MG/1 ML VIAL IV ONE (14:34)
[2018-10-14 15:02] LABS: ALBUMIN 4.1 g/dL (3.5-5.0); ALKALINE PHOSPHATASE 106 U/L (38-126); ANION GAP 10 (5-19); ASPARTATE AMINO TRANSFERASE 33 U/L (14-36); BILIRUBIN,DIRECT 0.2 mg/dL (0.0-0.4); BILIRUBIN,TOTAL 0.2 mg/dL (0.2-1.3); BLOOD UREA NITROGEN 13 mg/dL (7-20); CALCIUM 9.9 mg/dL (8.4-10.2); CARBON DIOXIDE 28 mmol/L (22-30); CHLORIDE 103 mmol/L (98-107); GLUCOSE 103 mg/dL (75-110); POTASSIUM 3.4 mmol/L (3.6-5.0)
[2018-10-14] MEDS ORDERED: POTASSIUM CHLORIDE 10 MEQ CAPSULE.ER PO ONE (15:23)
[2018-10-14] MEDS ORDERED: FENTANYL CITRATE INJ/PF 100 MCG/2 ML AMPUL IV ONE (15:33)
[2018-10-14] MEDS ORDERED: POTASSIUM CHLORIDE 20 MEQ PACKET PO ONE (15:45)
[2018-10-14 17:16] LABS: INTERNATIONAL RATION (INR) 1.06; PROTHROMBIN TIME 13.8 SEC (11.4-15.4)
[2018-10-14 17:17] LABS: PARTIAL THROMBOPLASTIN TIME 35.2 SEC (23.5-35.8)
--- NOTE | 2018-10-14 17:49 | RADIOLOGY REPORT (SQ) ---
EXAM DESCRIPTION: VENOUS BILATERAL LOWER COMPLETED DATE/TIME: 10/14/2018 5:13 pm REASON FOR STUDY: leg pain hx dvt . Bilateral lower extremity pain. COMPARISON: Left venous Doppler ultrasound 08/10/2018. TECHNIQUE: Dynamic and static montero scale and color images acquired of both lower extremity venous sy stems. Selected spectral images acquired with additional compression and augmentation maneuvers. Imag es stored on PACS. LIMITATIONS: None. FINDINGS: RIGHT LEG COMMON FEMORAL AND FEMORAL: Normal phasicity, compression and augmentation. No visualized echogenic m aterial on montero scale. No defects on color images. POPLITEAL: Normal compression and augmentation. No visualized echogenic material on montero scale. No de fects on color images. CALF VESSELS: Normal compression and augmentation. No visualized echogenic material on montero scale. No defects on color image. GSV AND SSV: Normal compression. No visualized echogenic material on montero scale. No defects on color images. ANY DEEP VENOUS INSUFFICIENCY: Not evaluated. ANY EVIDENCE OF POPLITEAL CYST: No. OTHER: No other significant finding. LEFT LEG COMMON FEMORAL AND FEMORAL: Normal phasicity, compression and augmentation. No visualized echogenic m aterial on montero scale. No defects on color images. POPLITEAL: Normal compression and augmentation. No visualized echogenic material on montero scale. No de fects on color images. CALF VESSELS: Status post [id number] amputation. GSV AND SSV: Normal compression. No visualized echogenic material on montero scale. No defects on color images. ANY DEEP VENOUS INSUFFICIENCY: Not evaluated. ANY EVIDENCE POPLITEAL CYST: No. OTHER: No other significant finding. IMPRESSION: NO EVIDENCE FOR DVT OR SVT IN EITHER LEG. TECHNICAL DOCUMENTATION: JOB ID: [id number] 2010 [employer]- All Rights Reserved Reading location - IP/workstation name: [email or web address]
--- NOTE | 2018-10-14 18:04 | RADIOLOGY REPORT (SQ) ---
EXAM DESCRIPTION: CT HEAD WITHOUT COMPLETED DATE/TIME: 10/14/2018 5:49 pm REASON FOR STUDY: worst headache of life hx of dvt COMPARISON: None. TECHNIQUE: Axial images acquired through the brain without intravenous contrast. Images reviewed wi th bone, brain and subdural windows. Images stored on PACS. All CT scanners at this facility use dose modulation, iterative reconstruction, and/or weight based d osing when appropriate to reduce radiation dose to as low as reasonably achievable (ALARA). [facility]: Dose Right [facility]: CareDose [facility]: Dose Right [facility]: Teradose 4D [facility]: [employer] RADIATION DOSE: CT Rad equipment meets quality standard of care and radiation dose reduction techniq ues were employed. CTDIvol: 48.5 mGy. DLP: 854 mGy-cm. mGy. LIMITATIONS: None. FINDINGS: VENTRICLES: Normal size and contour. CEREBRUM: No mass effect. No hemorrhage. No midline shift. Normal montero/white matter differentiatio n. No evidence for acute territorial infarction. CEREBELLUM: No mass effect. No hemorrhage. No alteration of density. No evidence for acute infarct ion. EXTRAAXIAL SPACES: No fluid collections. ORBITS AND GLOBE: Symmetrical contour of the globes. Orthopedic hardware noted at the lateral left o rbit. CALVARIUM: No depressed skull fracture. PARANASAL SINUSES: No air-fluid level. SOFT TISSUES: No hematoma. IMPRESSION: NO ACUTE INTRACRANIAL IMAGING FINDINGS. EVIDENCE OF ACUTE STROKE: NO. COMMENT: Quality ID # 436: Final reports with documentation of one or more dose reduction techniques (e.g., Automated exposure control, adjustment of the mA and/or kV according to patient size, use of iterative reconstruction technique) TECHNICAL DOCUMENTATION: JOB ID: [id number] [id number] 2010 [employer]- All Rights Reserved Reading location - IP/workstation name: [email or web address]
--- NOTE | 2018-10-14 18:32 | RADIOLOGY REPORT (SQ) ---
EXAM DESCRIPTION: CTA CHEST COMPLETED DATE/TIME: 10/14/2018 5:54 pm REASON FOR STUDY: chest discomfort hx of dvt on lovenox COMPARISON: None. TECHNIQUE: CT scan of the chest performed using helical scanning technique with dynamic intravenous contrast injection. Images reviewed with lung, soft tissue and bone windows. Reconstructed coronal and sagittal MPR images reviewed. Additional 3 dimensional post-processing performed to develop Maximal Intensity Projection images (TX P). All images stored on PACS. All CT scanners at this facility use dose modulation, iterative reconstruction, and/or weight based d osing when appropriate to reduce radiation dose to as low as reasonably achievable (ALARA). [facility]: Dose Right [facility]: CareDose [facility]: Dose Right [facility]: Teradose 4D [facility]: [employer] CONTRAST TYPE AND DOSE: contrast/concentration: Isovue 350.00 mg/ml; Total Contrast Delivered: 65.0 ml; Total Saline Delivered: 77.0 ml Contrast bolus optimized for the pulmonary arteries. Not diagnostic for the aorta. RENAL FUNCTION: Creatinine: 0.69. RADIATION DOSE: CT Rad equipment meets quality standard of care and radiation dose reduction techniq ues were employed. CTDIvol: 7.7 - 26.3 mGy. DLP: 284 mGy-cm. . LIMITATIONS: None. FINDINGS: LUNGS AND PLEURA: Prominent interstitial changes in lung bases which could represent chron ic change or interstitial pneumonia. AORTA AND GREAT VESSELS: The ascending thoracic aorta measures 3.8 x 3.8 cm. The descending thoracic aorta measures 3 x 3 cm. Contrast bolus not optimized for the aorta. HEART: No pericardial effusion. Minimal atherosclerotic coronary calcification. PULMONARY ARTERIES: N o emboli visualized in the main pulmonary arteries or the segmental branches. HILAR AND MEDIASTINAL STRUCTURES: No identified masses or abnormal nodes. HARDWARE: None in the chest. UPPER ABDOMEN: The liver demonstrates no abnormality. The spleen demonstrates no abnormality. The a drenals demonstrate no abnormality. Hiatal hernia is noted. THYROID AND OTHER SOFT TISSUES: No abnormality seen. BONES: Hemangioma of T10. Rotoscoliosis of thoracolumbar spine. IMPRESSION: Prominent interstitial changes in lung bases could represent interstitial scarring or in filtrate. COMMENT: Quality ID # [id number]: Final reports with documentation of one or more dose reduction techniques (e.g., Automated exposure control, adjustment of the mA and/or kV according to patient size, use of iterative reconstruction technique) TECHNICAL DOCUMENTATION: JOB ID: [id number] 2010 [employer]- All Rights Reserved Reading location - IP/workstation name: [email or web address]
[2018-10-14 19:30] VITALS: BP 147/86
== END 2018-10-14 19:30 | disposition home or self-care (01) ==
LOC: ER 13:11
DX: J18.9 Pneumonia, unspecified organism (principal); R51 Headache; M79.605 Pain in left leg; F17.210 Nicotine dependence, cigarettes, uncomplicated; I10 Essential (primary) hypertension; E11.9 Type 2 diabetes mellitus without complications; Z86.718 Personal history of other venous thrombosis and embolism; Z89.512 Acquired absence of left leg below knee; Z79.01 Long term (current) use of anticoagulants
CPT/HCPCS: 99284; 96375; 96365; 96367; 36415; 82550; 85025; 85610; 85730; 80053; 93970; 70450; 71275; J1100; J3010; J3475; J2550; J7030; J3490